=== PATIENT | male | born 1970 | race Caucasian/White ===

== ENCOUNTER 2017-03-31 18:07 | Emergency (ER) | payer MEDICAID ==
[~2017-03-31] VITALS: Ht 177.8 cm; Wt 100.0 kg
[~2017-03-31 18:07] MED LIST: DARU1TAB PO; EMTR1TAB4 PO; GABA800T PO; PRED-503 PO; VENTAER INH; ZITH250T PO
[2017-03-31 18:13] VITALS: BP 124/81; PULSE 114; RESP 17; TEMP 99.1; O2SAT 98
[2017-03-31] MEDS ORDERED: SODIUM CHLORIDE 0.9% FLUSH 10 ML FLUSH IV FLUSH PRN (18:45)
--- NOTE | 2017-03-31 18:54 | PD ---
HPI Chief Complaint: Alcohol/Drug Intoxication Time Seen by Provider: 18:49 Travel History International Travel<30 days: No Contact w/Intl Traveler<30days: No Traveled to known affect area: No History of Present Illness HPI 46-year-old male presents to the emergency department for evaluation of hematuria, intermittent right flank pain, left hand pain and bilateral feet pain. He states he symptoms started today. Patient reports history of HIV. He is not currently on antivirals and states he stopped taking these approximately 4 months ago because he could not get a ride to his physician. The patient also reports history of hepatitis C. He denies any current fevers. No chest pain or shortness of breath. Patient states that he smokes crack and injects methamphetamines. He last used these yesterday. Patient is not currently on any medications. He has no other complaints at this time. He denies any trauma to his hand or bilateral feet. Patient denies any suicidal or homicidal ideations. PFSH Past Medical History Bipolar Disorder: Yes Diminished Hearing: No Hepatitis: Yes (C) Immune Disorder: Yes (HIV ) Immunizations Current: Yes Social History Alcohol Use: No Tobacco Use: Yes (/2 PPD ) Substance Use: Yes (COCAINE, OPIATES9 (DENIES)) Allergies-Medications (Allergen,Severity, Reaction): Coded Allergies: Haldol (Verified Allergy, Severe, Swelling, 03/31/17) TONGUE SWELLING Reported Meds & Prescriptions Reported Meds & Active Scripts Active No Active Prescriptions or Reported Medications Review of Systems Except as stated in HPI: all other systems reviewed are Neg Physical Exam Narrative GENERAL: Well-nourished, well-developed male patient, afebrile. SKIN: Focused skin assessment warm/dry. HEAD: Normocephalic. Atraumatic. EYES: No scleral icterus. No injection or drainage. NECK: Supple, trachea midline. No JVD or lymphadenopathy. CARDIOVASCULAR: Regular rate and rhythm without murmurs, gallops, or rubs. RESPIRATORY: Breath sounds equal bilaterally. No accessory muscle use. Lungs sounds are clear to auscultation. GASTROINTESTINAL: Abdomen soft and nondistended. Patient has umbilical hernia noted. He has mild diffuse tenderness throughout. MUSCULOSKELETAL: No cyanosis, or edema. No abnormalities seen on bilateral feet or left hand. No evidence of trauma or cellulitis. BACK: Nontender without obvious deformity. Right CVA tenderness. Data Data Last Documented VS Vital Signs Date Time Temp Pulse Resp B/P Pulse Ox O2 Delivery O2 Flow Rate FiO2 03/31/17 21:39 100 22 127/78 95 Room Air 03/31/17 18:13 99.1 Orders Complete Blood Count With Diff (03/31/17 18:43) Comprehensive Metabolic Panel (03/31/17 18:43) Lipase (03/31/17 18:43) Urinalysis - C+S If Indicated (03/31/17 18:43) Ct Abd/Pel W/O Iv Contrast (03/31/17 18:43) Iv Access Insert/Monitor (03/31/17 18:43) Ecg Monitoring (03/31/17 18:43) Oximetry (03/31/17 18:43) Sodium Chloride 0.9% Flush (Ns Flush) (03/31/17 18:45) Electrocardiogram (03/31/17 ) Creatine Kinase (Cpk) (03/31/17 18:43) Alcohol (Ethanol) (03/31/17 18:45) Drug Screen, Random Urine (03/31/17 18:45) CKMB (03/31/17 19:20) CKMB% (03/31/17 19:20) Sodium Chlor 0.9% 1000 Ml Inj (Ns 1000 M (03/31/17 20:15) Sodium Chlor 0.9% 1000 Ml Inj (Ns 1000 M (03/31/17 22:00) Urine Culture (03/31/17 21:36) Labs Laboratory Tests Test 03/31/17 03/31/17 19:20 21:36 White Blood Count 6.9 TH/MM3 Red Blood Count 4.89 MIL/MM3 Hemoglobin 15.9 GM/DL Hematocrit 44.1 % Mean Corpuscular Volume 90.3 FL Mean Corpuscular Hemoglobin 32.5 PG Mean Corpuscular Hemoglobin 36.0 % Concent Red Cell Distribution Width 12.8 % Platelet Count 162 TH/MM3 Mean Platelet Volume 8.2 FL Neutrophils (%) (Auto) 60.6 % Lymphocytes (%) (Auto) 21.9 % Monocytes (%) (Auto) 16.0 % Eosinophils (%) (Auto) 0.4 % Basophils (%) (Auto) 1.1 % Neutrophils # (Auto) 4.2 TH/MM3 Lymphocytes # (Auto) 1.5 TH/MM3 Monocytes # (Auto) 1.1 TH/MM3 Eosinophils # (Auto) 0.0 TH/MM3 Basophils # (Auto) 0.1 TH/MM3 CBC Comment AUTO DIFF Differential Comment AUTO DIFF CONFIRMED Platelet Estimate NORMAL Platelet Morphology Comment NORMAL Red Cell Morphology Comment NORMAL Sodium Level 134 MEQ/L Potassium Level 3.9 MEQ/L Chloride Level 101 MEQ/L Carbon Dioxide Level 26.5 MEQ/L Anion Gap 7 MEQ/L Blood Urea Nitrogen 34 MG/DL Creatinine 1.41 MG/DL Estimat Glomerular Filtration 54 ML/MIN Rate Random Glucose 92 MG/DL Calcium Level 8.7 MG/DL Total Bilirubin 1.1 MG/DL Aspartate Amino Transf 63 U/L (AST/SGOT) Alanine Aminotransferase 73 U/L (ALT/SGPT) Alkaline Phosphatase 65 U/L Total Creatine Kinase 603 U/L Creatine Kinase MB 3.7 NG/ML Creatine Kinase MB % 0.6 % Total Protein 8.9 GM/DL Albumin 4.1 GM/DL Lipase 179 U/L Ethyl Alcohol Level LESS THAN 3 MG/DL Urine Color RED Urine Turbidity HAZY Urine pH 5.5 Urine Specific [place] 1.029 Urine Protein 300 mg/dL Urine Glucose (UA) NEG mg/dL Urine Ketones 10 mg/dL Urine Occult Blood MOD Urine Nitrite NEG Urine Bilirubin NEG Urine Urobilinogen 2.0 MG/DL Urine Leukocyte Esterase NEG Urine RBC /hpf Urine WBC 23 /hpf Urine Mucus FEW /lpf Microscopic Urinalysis Comment CULTURE INDICATED Urine Opiates Screen NEG Urine Barbiturates Screen NEG Urine Amphetamines Screen POS Urine Benzodiazepines Screen NEG Urine Cocaine Screen POS Urine Cannabinoids Screen POS MDM Medical Decision Making Medical Screen Exam Complete: Yes Emergency Medical Condition: Yes Medical Record Reviewed: Yes Interpretation(s) CT abdomen/pelvis - CONCLUSION: 1. Multiple calcified nonobstructing bilateral renal calculi. 2. Multiple bilateral renal cysts. 3. Splenomegaly. 4. Midline ventral abdominal wall hernia containing only fat. 5. Cholelithiasis. 6. [place] partially calcified lesion within the left pericolic fat adjacent to the distal sigmoid which may represent a diverticulum. 7. Left posterior basilar atelectasis. Differential Diagnosis Nephrolithiasis versus UTI versus substance abuse Narrative Course 46-year-old male presents to the emergency department stating he has hematuria as well as intermittent right flank pain and intermittent left hand pain as well as intermittent fever pain. He denies any pain at this moment. On exam, he has right CVA tenderness and mild diffuse tenderness throughout the abdomen. Patient also appears to be under the influence during exam. EKG, CBC, CMP, lipase, CK, UA, alcohol level, urine drug screen are ordered and pending. CT abdomen/pelvis without contrast is ordered and pending. EKG shows sinus tachycardia, HR 103, no acute ST changes. CBC shows no acute abnormality. CMP shows BUN 34, creatinine 1.41. Lipase is 179. CK is 603. UA shows moderate occult blood, innumerable RBC, 23 WBC. Alcohol level is less than 3. UDS is positive for amphetamines, cocaine, cannabinoids. CT abdomen/ pelvis shows multiple calcified nonobstructing bilateral renal calculi; multiple bilateral renal cysts; splenomegaly; midline ventral abdominal wall hernia containing only fat; cholelithiasis; oblong partially calcified lesion within the left pericolic fat adjacent to the distal sigmoid which may represent a diverticulum; left posterior basilar atelectasis. Symptoms are consistent with the fact that the patient may have possibly passed and kidney stone. The patient also was slightly dehydrated. He was given a total 2 L normal saline IV bolus. Patient also has a UTI he'll be started on ciprofloxacin. He is encouraged to follow-up with his infectious disease physician to restart antivirals. He is to follow-up with his primary care physician as well. Is return for any acute worsening of symptoms. I discussed the case with my attending physician, Dr. Watson, who agrees with plan and disposition. Diagnosis Primary Impression: UTI (urinary tract infection) Qualified Code: N30.01 - Acute cystitis with hematuria Additional Impressions: Hematuria Polysubstance abuse Referrals: Infectious Disease Specialist Primary Care Physician Patient Instructions: Cocaine Abuse (ED), General Instructions, Hematuria (ED) , Urinary Tract Infection in Men (ED) Additional Instructions: Take antibiotic as directed until gone. Follow-up with your infectious disease physician to restart antiviral therapy. Follow-up with your primary care physician. Return to the emergency department for any acute worsening of symptoms. Med/Other Pt SpecificInfo: Prescription(s) given Scripts Ciprofloxacin 500 Mg [id number] Mg PO BID 10 Days Ref 0 Prov:Inge Vargas 03/31/17 Disposition: DISCHARGE HOME Condition: Stable Inge Vargas March 31, 2017 18:54
[2017-03-31 19:36] LABS: AUTOMATED NEUTROPHIL # 4.2 TH/MM3 (1.8-7.7); BASOPHIL # 0.1 TH/MM3 (0-0.2); BASOPHIL % 1.1 % (0.0-2.0); EOSINOPHIL % 0.4 % (0.0-4.0); HEMATOCRIT 44.1 % (39.0-51.0); LYMPH % 21.9 % (9.0-44.0); LYMPHOCYTE # 1.5 TH/MM3 (1.0-4.8); MEAN CELL VOLUME 90.3 FL (80.0-100.0); MEAN CORPUSCULAR HEMOGLOBIN 32.5 PG (27.0-34.0); NEUT % 60.6 % (16.0-70.0); PLATELET COUNT 162 TH/MM3 (150-450); RED BLOOD COUNT 4.89 MIL/MM3 (4.50-5.90); RED CELL DISTRIBUTION WIDTH 12.8 % (11.6-17.2); WHITE BLOOD COUNT 6.9 TH/MM3 (4.0-11.0)
[2017-03-31 19:37] LABS: HEMO FLAGS AUTO DIFF
--- NOTE | 2017-03-31 20:04 | RADRPT ---
EXAM DATE/TIME: 03/31/2017 19:28 [facility] COMPARISON: No previous studies available for comparison. INDICATIONS : Back pain with hematuria. ORAL CONTRAST: No oral contrast ingested. RADIATION DOSE: 21.51 CTDIvol (mGy) MEDICAL HISTORY : Hepatitis C. SURGICAL HISTORY : None. ENCOUNTER: Initial ACUITY: 1 day PAIN SCALE: 8/10 LOCATION: Bilateral flank TECHNIQUE: Volumetric scanning of the abdomen and pelvis was performed. Using automated exposure control and ad justment of the mA and/or kV according to patient size, radiation dose was kept as low as reasonably achievable to obtain optimal diagnostic quality images. FINDINGS: There are calcified nonobstructing bilateral renal calculi. The largest calculus on the left measure s 8 mm and the largest calculus on the right measures 7 mm. There is no acute obstructive uropathy. There are multiple low density lesions within the kidneys bilaterally suggestive of probable cysts. Solid lesions are difficult to rule out with certainty on this unenhanced examination. Tiny calcifi ed gallstones are noted within the gallbladder which is nondistended. The spleen is enlarged. Evalu ation of the solid organs of the abdomen is limited by the lack of intravenous contrast. There is a ventral abdominal wall hernia in the midline which contains only fat. There is no bowel obstruction. There is a partially calcified oblong density within the left posterior pelvis within the pericolic fat which may represent a focal diverticulum. No acute diverticulitis is noted. The urinary bladde r is unremarkable. The prostate gland is unremarkable. Left posterior basilar atelectasis is noted. CONCLUSION: 1. Multiple calcified nonobstructing bilateral renal calculi. 2. Multiple bilateral renal cysts. 3. Splenomegaly. 4. Midline ventral abdominal wall hernia containing only fat. 5. Cholelithiasis. 6. [place] partially calcified lesion within the left pericolic fat adjacent to the distal sigmoid wh ich may represent a diverticulum. 7. Left posterior basilar atelectasis. Thogn Winters MD on March 31, 2017 at 19:50 Board Certified Radiologist. This report was verified electronically.
[2017-03-31 20:05] LABS: ALKALINE PHOSPHATASE 65 U/L (45-117); ALT (GPT) 73 U/L (12-78); ANION GAP 7 MEQ/L (5-15); AST (GOT) 63 U/L (15-37); BICARBONATE 26.5 MEQ/L (21.0-32.0); BLOOD UREA NITROGEN 34 MG/DL (7-18); CHLORIDE 101 MEQ/L (98-107); CREATINE KINASE 603 U/L (39-308); GLOMERULAR FILTRATION RATE 54 ML/MIN (>89); POTASSIUM 3.9 MEQ/L (3.5-5.1); SODIUM (NA) 134 MEQ/L (136-145); TOTAL BILIRUBIN ADULT 1.1 MG/DL (0.2-1.0)
[2017-03-31] MEDS ORDERED: SODIUM CHLOR 0.9% 1000 ML INJ 1,000 ML IV ONE ×2 (20:15→22:00)
[2017-03-31 20:17] VITALS: RESP 18; O2SAT 97
[2017-03-31 20:19] LABS: PLATELET ESTIMATE SMEAR NORMAL (NORMAL); PLATELET MORPHOLOGY NORMAL (NORMAL); SCAN/DIFF AUTO DIFF CONFIRMED
[2017-03-31 20:20] LABS: CKMB 3.7 NG/ML (0.5-3.6)
[2017-03-31 21:39] VITALS: BP 127/78; PULSE 100; RESP 22; O2SAT 95
[2017-03-31 21:57] LABS: BLOOD, URINE MOD (NEG); COMMENT (UR) CULTURE INDICATED; CULTURE IF INDICATED CULTURE INDICATED; GLUCOSE,URINE NEG (NEG); KETONE, URINE 10 mg/dL (NEG); MUCUS URINE FEW /lpf (OCC); NITRITE,URINE NEG (NEG); PH, URINE 5.5 (5.0-8.5)
[2017-03-31 21:58] LABS: URINE COLOR RED (YELLW/STRAW)
[2017-03-31 21:59] LABS: AMPHETAMINE, URINE POS (NEG); BARBITURATES, URINE NEG (NEG); COCAINE, URINE POS (NEG)
[2017-03-31] MEDS ORDERED: CIPR500T2 PO (22:34)
[2017-03-31] MEDS ORDERED: CIPROFLOXACIN 500 MG TAB PO ONE (22:45)
--- NOTE | 2017-04-01 15:16 | EKG ---
Date Performed: 03/31/2017 Time Performed: 19:13:41 PTAGE: 46 years EKG: SINUS TACHYCARDIA INDETERMINATE AXIS LEFT ANTERIOR FASCICULAR BLOCK Since previous tracing, no significant change noted ABNORMAL ECG PREVIOUS TRACING : 10/31/2016 02.40 DOCTOR: Nancy Thomas Interpretating Date/Time 04/01/2017 15:15:28
== END 2017-04-01 01:16 | disposition home or self-care (01) ==
LOC: NEPC 18:07
DX: N39.0 Urinary tract infection, site not specified (principal); R31.9 Hematuria, unspecified; R00.0 Tachycardia, unspecified; I44.4 Left anterior fascicular block; B19.20 Unspecified viral hepatitis C without hepatic coma; F17.210 Nicotine dependence, cigarettes, uncomplicated; F19.10 Other psychoactive substance abuse, uncomplicated; Z21 Asymptomatic human immunodeficiency virus [HIV] infection status
CPT/HCPCS: 74176; 80053; 80307; 81001; 82550; 82552; 83690; 85025; 87086; 93005; 96360; 96361; 99284; J7030

== ENCOUNTER 2017-07-13 07:32 | Inpatient (IN) | payer MEDICAID, OTHER ==
[~2017-07-13] VITALS: Ht 177.8 cm; Wt 109.7 kg
[~2017-07-13 07:32] MED LIST changes: +CIPR500T2 PO; -DARU1TAB PO; -EMTR1TAB4 PO; -GABA800T PO; -PRED-503 PO; -VENTAER INH; -ZITH250T PO
[2017-07-13] MEDS ORDERED: RITO100 PO (07:39)
[2017-07-13] MEDS ORDERED: [UNRECOGNIZED DRUG - CODE] PO (07:39)
[2017-07-13] MEDS ORDERED: EMTR1TAB5 PO (07:39)
[2017-07-13] MEDS ORDERED: GABA800T PO (07:39)
[2017-07-13] MEDS ORDERED: SERO300T PO (07:39)
--- NOTE | 2017-07-13 08:01 | PD ---
HPI Chief Complaint: Psychiatric Symptoms Time Seen by Provider: 07:51 Travel History International Travel<30 days: No Contact w/Intl Traveler<30days: No Traveled to known affect area: No History of Present Illness HPI This patient presents under police [place] act. He has long-standing depression but for the last 3 days she's been having suicidal thoughts. He has not acted on them but has a thought he might jump into traffic. Symptoms severity is moderate. No alleviating factors. Patient is HIV positive and on antivirals. He has hepatitis C. He has long history of IV heroin abuse but reports he has not used any in the last year and a half. No alcohol today. PFSH Past Medical History Bipolar Disorder: Yes Depression: Yes Diminished Hearing: No Gastrointestinal Disorders: Yes (UMBILICAL HERNIA) Hepatitis: Yes (C) Immune Disorder: Yes (HIV ) Medical other: Yes (CIRRHOSIS) Immunizations Current: Yes Past Surgical History Surgical History: No Previous Surgery Social History Alcohol Use: No Tobacco Use: Yes (2 PPD ) Substance Use: Yes (COCAINE, HEROIN, MARIJUANA, -HX OF OPIATE) Allergies-Medications (Allergen,Severity, Reaction): Coded Allergies: haloperidol (Unverified Allergy, Severe, Swelling, 07/03/17) TONGUE SWELLING Reported Meds & Prescriptions Reported Meds & Active Scripts Active Reported Seroquel (Quetiapine Fumarate) 300 Mg Tab 300 Mg PO HS Gabapentin 800 Mg Tab 800 Mg PO BID Norvir (Ritonavir) 100 Mg Cap 300 Mg PO BID Kaletra (Lopinavir-Ritonavir) 100-25 Mg Tab 1 Tab PO BID Truvada (Emtricitabine-Tenofovir Disoproxil Fumarate) 100-150 Mg Tab 1 Tab PO DAILY Review of Systems General / Constitutional: No: Fever Eyes: No: Visual changes HENT: No: Headaches Cardiovascular: No: Chest Pain or Discomfort Respiratory: No: Shortness of Breath Gastrointestinal: No: Abdominal Pain Genitourinary: No: Dysuria Musculoskeletal: No: Pain Skin: No Rash Neurologic: No: Weakness Psychiatric: Positive: Depression, Suicidal Ideations, Substance Abuse Endocrine: No: Polydipsia Hematologic/Lymphatic: No: Easy Bruising Physical Exam Narrative GENERAL: Well-nourished, well-developed patient in no apparent distress. SKIN: Focused skin assessment reveals no rash and nodules. Skin is Warm and dry. HEAD: Atraumatic. Normocephalic. EYES: Pupils equal and round. No scleral icterus. No injection or drainage. ENT: No nasal bleeding or discharge. Mucous membranes pink and moist. NECK: Trachea midline. No JVD. CARDIOVASCULAR: Regular rate and rhythm. No murmur appreciated. RESPIRATORY: No accessory muscle use. Clear to auscultation. Breath sounds equal bilaterally. GASTROINTESTINAL: Abdomen soft, non-tender, nondistended. Hepatic and splenic margins not palpable. He has an umbilical hernia which is chronic per his report. MUSCULOSKELETAL: No obvious deformities. No clubbing. No cyanosis. No edema. NEUROLOGICAL: Awake and alert. No obvious cranial nerve deficits. Motor grossly within normal limits. Normal speech. PSYCHIATRIC: Depressed mood and flat affect; insight and judgment reduced . Data Data Orders Orders Complete Blood Count With Diff (07/13/17 07:56) Comprehensive Metabolic Panel (07/13/17 07:56) Thyroid Stimulating Hormone (07/13/17 07:56) Psych Screen (07/13/17 07:56) Drug Screen, Random Urine (07/13/17 07:56) Alcohol (Ethanol) (07/13/17 07:56) Diet Regular Basic (07/13/17 Breakfast) Labs Laboratory Tests Test 07/13/17 07:45 White Blood Count 13.1 TH/MM3 Red Blood Count 5.05 MIL/MM3 Hemoglobin 16.5 GM/DL Hematocrit 48.0 % Mean Corpuscular Volume 95.0 FL Mean Corpuscular Hemoglobin 32.6 PG Mean Corpuscular Hemoglobin Concent 34.4 % Red Cell Distribution Width 13.7 % Platelet Count 187 TH/MM3 Mean Platelet Volume 7.8 FL Neutrophils (%) (Auto) 71.0 % Lymphocytes (%) (Auto) 19.9 % Monocytes (%) (Auto) 7.6 % Eosinophils (%) (Auto) 0.7 % Basophils (%) (Auto) 0.8 % Neutrophils # (Auto) 9.3 TH/MM3 Lymphocytes # (Auto) 2.6 TH/MM3 Monocytes # (Auto) 1.0 TH/MM3 Eosinophils # (Auto) 0.1 TH/MM3 Basophils # (Auto) 0.1 TH/MM3 CBC Comment DIFF FINAL Differential Comment Blood Urea Nitrogen 17 MG/DL Creatinine 1.12 MG/DL Random Glucose 92 MG/DL Total Protein 9.4 GM/DL Albumin 4.4 GM/DL Calcium Level 9.0 MG/DL Alkaline Phosphatase 64 U/L Aspartate Amino Transf (AST/SGOT) 33 U/L Alanine Aminotransferase (ALT/SGPT) 49 U/L Total Bilirubin 0.9 MG/DL Sodium Level 137 MEQ/L Potassium Level 3.7 MEQ/L Chloride Level 104 MEQ/L Carbon Dioxide Level 19.7 MEQ/L Anion Gap 13 MEQ/L Estimat Glomerular Filtration Rate 70 ML/MIN Thyroid Stimulating Hormone 3rd Gen 1.680 uIU/ML Ethyl Alcohol Level 10 MG/DL MDM Medical Decision Making Medical Screen Exam Complete: Yes Emergency Medical Condition: Yes Medical Record Reviewed: Yes Differential Diagnosis Depression, suicidal ideation, adjustment disorder Narrative Course I have reviewed the patient's electronic medical record. Patient's been here for a few minor medical problems in the last couple of years but has no psychiatric visits I've ordered a medical screening workup CBC is normal Metabolic profile is normal LFTs are normal TSH are normal Alcohol is 25 Drug screen is pending but not going to international exchange coordinator I've ordered psychiatric evaluation as he is here in the [place] act. Patient is is medically stable as can be made. He will be dispositioned determined by how his psychiatric evaluation dose Diagnosis Primary Impression: Depression with suicidal ideation Additional Impressions: Intravenous drug abuse, episodic HIV disease Ajith Lowery MD Jul 13, 2017 08:01
[2017-07-13 08:31] LABS: AUTOMATED NEUTROPHIL # 9.3 TH/MM3 (1.8-7.7); BASOPHIL # 0.1 TH/MM3 (0-0.2); BASOPHIL % 0.8 % (0.0-2.0); EOSINOPHIL # 0.1 TH/MM3 (0-0.4); EOSINOPHIL % 0.7 % (0.0-4.0); HEMO FLAGS DIFF FINAL; LYMPH % 19.9 % (9.0-44.0); LYMPHOCYTE # 2.6 TH/MM3 (1.0-4.8); MEAN CORPUSCULAR HEMOGLOBIN 32.6 PG (27.0-34.0); MEAN CORPUSCULAR HGB CONC 34.4 % (32.0-36.0); MONO % 7.6 % (0.0-8.0); PLATELET COUNT 187 TH/MM3 (150-450); RED BLOOD COUNT 5.05 MIL/MM3 (4.50-5.90); RED CELL DISTRIBUTION WIDTH 13.7 % (11.6-17.2); WHITE BLOOD COUNT 13.1 TH/MM3 (4.0-11.0)
[2017-07-13 08:47] LABS: ALT (GPT) 49 U/L (12-78); ANION GAP 13 MEQ/L (5-15); AST (GOT) 33 U/L (15-37); BICARBONATE 19.7 MEQ/L (21.0-32.0); BLOOD UREA NITROGEN 17 MG/DL (7-18); CHLORIDE 104 MEQ/L (98-107); GLOMERULAR FILTRATION RATE 70 ML/MIN (>89); POTASSIUM 3.7 MEQ/L (3.5-5.1); SODIUM (NA) 137 MEQ/L (136-145)
[2017-07-13 08:57] LABS: ALKALINE PHOSPHATASE 64 U/L (45-117); TOTAL BILIRUBIN ADULT 0.9 MG/DL (0.2-1.0)
[2017-07-13 09:08] LABS: ALCOHOL 10 MG/DL (0-5)
[2017-07-13] MEDS ORDERED: LORazepam 1 MG TAB PO PRN (18:15)
[2017-07-13] MEDS ORDERED: LORazepam 0.5 MG TAB PO PRN (18:15)
[2017-07-13] MEDS ORDERED: LORazepam 2 MG/ML VIAL IM PRN ×2 (18:15)
[2017-07-13] MEDS ORDERED: ALUMINUM/MAGNESIUM/SIMETH 30 ML CUP PO PRN ×2 (18:15→18:45)
[2017-07-13] MEDS ORDERED: MAGNESIUM HYDROXIDE SUSP 30 ML CUP PO PRN (18:15)
[2017-07-13] MEDS ORDERED: ACETAMINOPHEN 325 MG TAB PO PRN (18:15)
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
[2017-07-13] MEDS ORDERED: ONDANSETRON HCL 4 MG/2 ML VIAL IM ONE (20:00)
[2017-07-13 20:21] VITALS: BP 159/83; PULSE 64; RESP 18
[2017-07-13 20:45] VITALS: BP 155/95; PULSE 70; RESP 20; TEMP 98.9; O2SAT 97
[2017-07-13] MEDS: RITONAVIR 100 MG TAB PO SCH (21:00)
[2017-07-13] MEDS: LOPINAVIR/RITONAVIR 200 MG/50 MG TAB PO SCH (21:00)
[2017-07-13] MEDS: QUEtiapine FUMARATE 300 MG TAB PO SCH (22:07)
[2017-07-13] MEDS: GABAPENTIN 400 MG CAP PO SCH (22:07)
[2017-07-14 06:00] VITALS: BP 121/60; PULSE 90; RESP 16; TEMP 97.1; O2SAT 97
[2017-07-14] MEDS: FLUoxetine HCL 20 MG CAP PO SCH (08:32)
[2017-07-14] MEDS: GABAPENTIN 400 MG CAP PO SCH ×2 (08:32→21:12)
[2017-07-14 08:36] LABS: BASOPHIL % 0.5 % (0.0-2.0); EOSINOPHIL # 0.1 TH/MM3 (0-0.4); EOSINOPHIL % 0.5 % (0.0-4.0); HEMATOCRIT 46.9 % (39.0-51.0); HEMO FLAGS DIFF FINAL; LYMPH % 17.3 % (9.0-44.0); LYMPHOCYTE # 1.7 TH/MM3 (1.0-4.8); MEAN CELL VOLUME 94.8 FL (80.0-100.0); MEAN CORPUSCULAR HGB CONC 34.8 % (32.0-36.0); MONO % 9.4 % (0.0-8.0); NEUT % 72.3 % (16.0-70.0); PLATELET COUNT 163 TH/MM3 (150-450); RED BLOOD COUNT 4.95 MIL/MM3 (4.50-5.90); RED CELL DISTRIBUTION WIDTH 13.7 % (11.6-17.2); WHITE BLOOD COUNT 9.6 TH/MM3 (4.0-11.0)
[2017-07-14 09:00] LABS: ALT (GPT) 46 U/L (12-78); ANION GAP 10 MEQ/L (5-15); AST (GOT) 29 U/L (15-37); BLOOD UREA NITROGEN 25 MG/DL (7-18); CHLORIDE 96 MEQ/L (98-107); GLOMERULAR FILTRATION RATE 55 ML/MIN (>89); POTASSIUM 3.7 MEQ/L (3.5-5.1); SODIUM (NA) 130 MEQ/L (136-145)
[2017-07-14] MEDS: EMTRICITABINE/TENOFOVIR 200 MG/300 MG TAB PO SCH (09:00)
[2017-07-14 09:26] LABS: ALKALINE PHOSPHATASE 64 U/L (45-117); HDL CHOLESTEROL 47.5 MG/DL (40.0-60.0); LDL CHOLESTEROL 186 MG/DL (0-99); TOTAL BILIRUBIN ADULT 0.9 MG/DL (0.2-1.0)
[2017-07-14 13:15] LABS: HEMOGLOBIN A1b 0.8 %; HEMOGLOBIN Ao 85.3 %; HEMOGLOBIN F 2.1 %; HEMOGLOBIN LA1C 2.1 %; HEMOGLOBIN P3 4.8 %
--- NOTE | 2017-07-14 13:58 | PD.CONS ---
HPI Service [facility] Consult Requested By Psychiatric team Reason for Consult Evaluation and treatment for hepatitis, cirrhosis, HIV Primary Care Physician Unknown Diagnoses: History of Present Illness Written by Darcy Kathleen, acting as scribe for on 07/14/17 at 13:45. Patient is a 47-year-old male with primary medical history of hep C, HIV who came into the hospital for suicidal ideation. Patient states that he was depressed probably because he was doing drugs saying that he wants to end his life by "stepping off the streets and hopefully to be hit by a car." Patient states that he has HIV and has been compliant with his medications. He takes them every day. He also admitted to doing cocaine, last use was 3 days ago. He used to do IV drugs but has stopped for a few years now. States he got HIV and hep C from it. Patient also reports that he was diagnosed with kidney stones at [facility] 3 weeks ago and feels that the stone has passed yesterday. Reports bilateral lower abdominal quadrant pain and hematuria prior to the stone passing but has not seen any hematuria since today. He currently denies any abdominal pain. Patient is also sleepy and drowsy, reporting that he took sleep medications. Otherwise,denies pain and discomfort. Denies SOB/ dyspnea. Denies chest pain, palpitations, headaches, dizziness. Denies fevers, chills, n/v/d. Denies hematuria, dysuria. Review of Systems Except as stated in HPI: all other systems reviewed are Neg Past Family Social History Allergies: Coded Allergies: haloperidol (Unverified Allergy, Severe, Swelling, 07/03/17) TONGUE SWELLING Past Medical History HIV Hep C History Kidney stones Past Surgical History None Reported Medications Pulled from EMR as instructed by Brijesh Reported Meds & Active Scripts Active Reported Seroquel (Quetiapine Fumarate) 300 Mg Tab 300 Mg PO HS Gabapentin 800 Mg Tab 800 Mg PO BID Norvir (Ritonavir) 100 Mg Cap 300 Mg PO BID Kaletra (Lopinavir-Ritonavir) 100-25 Mg Tab 1 Tab PO BID Truvada (Emtricitabine-Tenofovir Disoproxil Fumarate) 100-150 Mg Tab 1 Tab PO DAILY Active Ordered Medications Pulled from EMR as instructed by Brijesh Current Medications Medications (Trade) Dose Ordered Sig/Michelle Route Start Time Stop Time Status Last Admin (Ativan) 1 mg Q6H PRN PO 07/13/17 18:15 07/13/17 22:07 (Ativan Inj) 1 mg Q6H PRN IM 07/13/17 18:15 (Ativan) 0.5 mg Q12H PRN PO 07/13/17 18:15 (Ativan Inj) 0.5 mg Q12H PRN IM 07/13/17 18:15 (Tylenol) 650 mg Q4H PRN PO 07/13/17 18:15 (Milk Of Magnesia Liq) 30 ml DAILY PRN PO 07/13/17 18:15 (Mag-Al Plus Susp Liq) 30 ml Q6H PRN PO 07/13/17 18:15 07/13/17 19:13 (Desyrel) 50 mg HS PRN PO 07/13/17 18:15 (Neurontin) 800 mg BID PO 07/13/17 21:00 07/14/17 08:32 (Kaletra 200-50 Mg) 1 tab BID PO 07/13/17 21:00 (SEROquel) 300 mg HS PO 07/13/17 21:00 07/13/17 22:07 (Norvir) 300 mg BID PO 07/13/17 21:00 (Truvada 200-300 Mg) 1 tab DAILY PO 07/14/17 09:00 07/14/17 09:00 (PROzac) 20 mg DAILY PO 07/14/17 09:00 07/14/17 08:32 Family History Denies any significant family medical history Social History Denies alcohol use Current a smoker 2 packs per day Illicit drug use cocaine Physical Exam Vital Signs Vital Signs Date Time Temp Pulse Resp B/P (MAP) Pulse Ox O2 Delivery O2 Flow Rate FiO2 07/14/17 06:00 97.1 90 16 121/60 (80) 97 07/13/17 20:45 98.9 70 20 155/95 (115) 97 07/13/17 20:21 64 18 159/83 (108) Physical Exam GENERAL: This is a well-nourished, well-developed patient, in no apparent distress. SKIN: No rashes, ecchymoses or lesions. Cool and dry. HEAD: Normocephalic. EYES: Pupils equal round and reactive. Extraocular motions intact. No scleral icterus. No injection or drainage. ENT: Nose without bleeding. Throat without erythema. Uvula midline. Airway patent. NECK: Trachea midline. Supple. CARDIOVASCULAR: Regular rate and rhythm without murmurs, gallops, or rubs. RESPIRATORY: Mild expiratory wheezes. GASTROINTESTINAL: Abdomen soft, non-tender, protuberant. No guarding. Umbilical hernia present. Bowel sounds active 4. MUSCULOSKELETAL: Extremities without clubbing, cyanosis, or edema. NEUROLOGICAL: Awake and alert. Oriented to place, person, time Motor and sensory grossly within normal limits. Five out of 5 muscle strength in all muscle groups. Normal speech. PSYCH: Mood and affect appropriate. Laboratory Laboratory Tests Test 07/13/17 16:00 07/14/17 07:46 Urine Opiates Screen NEG Urine Barbiturates Screen NEG Urine Amphetamines Screen NEG Urine Benzodiazepines Screen NEG Urine Cocaine Screen POS Urine Cannabinoids Screen POS White Blood Count 9.6 Red Blood Count 4.95 Hemoglobin 16.3 Hematocrit 46.9 Mean Corpuscular Volume 94.8 Mean Corpuscular Hemoglobin 33.0 Mean Corpuscular Hemoglobin Concent 34.8 Red Cell Distribution Width 13.7 Platelet Count 163 Mean Platelet Volume 8.1 Neutrophils (%) (Auto) 72.3 Lymphocytes (%) (Auto) 17.3 Monocytes (%) (Auto) 9.4 Eosinophils (%) (Auto) 0.5 Basophils (%) (Auto) 0.5 Neutrophils # (Auto) 7.0 Lymphocytes # (Auto) 1.7 Monocytes # (Auto) 0.9 Eosinophils # (Auto) 0.1 Basophils # (Auto) 0.0 CBC Comment DIFF FINAL Differential Comment Blood Urea Nitrogen 25 Creatinine 1.38 Random Glucose 104 Total Protein 8.4 Albumin 3.9 Calcium Level 9.3 Alkaline Phosphatase 64 Aspartate Amino Transf (AST/SGOT) 29 Alanine Aminotransferase (ALT/SGPT) 46 Total Bilirubin 0.9 Sodium Level 130 Potassium Level 3.7 Chloride Level 96 Carbon Dioxide Level 24.0 Anion Gap 10 Estimat Glomerular Filtration Rate 55 Triglycerides Level 114 Cholesterol Level 256 LDL Cholesterol 186 HDL Cholesterol 47.5 Cholesterol/HDL Ratio 5.38 Vitamin B12 Level 469 25-Hydroxy Vitamin D Total 18.9 Result Diagram: 07/14/17 0746 07/14/17 0746 Assessment and Plan Problem List: (1) Hep C w/o coma, chronic ICD Code: B18.2 - Chronic viral hepatitis C (2) Adjustment disorder with depressed mood ICD Code: F43.21 - Adjustment disorder with depressed mood Status: Acute (3) Depression with suicidal ideation ICD Code: F32.9 - Major depressive disorder, single episode, unspecified; R45.851 - Suicidal ideations Status: Acute (4) HIV disease ICD Code: B20 - Human immunodeficiency virus [HIV] disease; R45.851 - Suicidal ideations Status: Acute Assessment and Plan Patient is a 47-year-old male with primary medical history of hep C, HIV who came into the hospital for suicidal ideation. Depression, suicidal ideation - Managed by psychiatry team HIV - Continue HAART meds from home (Truvada, Kaletra) - follow-up with own outpatient infectious disease - Patient is compliant with medications Hep C/ Cirrhosis - LFTs within normal range - Follow-up either infectious disease or gastroenterology/hepatology for treatment Acute kidney injury Kidney stone - This is possibly related to reports of kidney stone that had passed yesterday with dehydration - Repeat BMP tomorrow, repeat UA - Avoid nephrotoxins - Encourage by mouth fluid intake. Patient reports he is thirsty, and agreeable to drink Hyponatremia - Possibly related to dehydration. Pt appears euvolemic. - Repeat BMP in am Tobacco abuse - Possibly with underlying COPD - DuoNeb's when necessary - Nicotine patch - Counseled DVT prop low risk ambulatory If repeat labs tomorrow is within normal we'll sign off on the patient. Code Status Full code Discussed Condition With Patient, nursing This note was transcribed by leann Kathleen. I, Dr. Philippe Yepez personally performed the history, physical exam, and medical decision making; and confirmed the accuracy of the information in the transcribed note. Authenticated by Dr. Philippe Yepez on 07/14/17 at 15:11. Darcy Velázquez Jul 14, 2017 13:58 Philippe Yepez DO Jul 14, 2017 15:12
--- NOTE | 2017-07-14 14:59 | HHI.PYPN ---
Subjective Remarks Pt seen and discussed with staff. He remains depressed and with intermittent suicidal thoughts, but reports some improvement in mood. He is malodorous and has remained wihtdrawnand isolated to his room. Tolerating medications without side effects. NO SI/HI Objective Alert: Yes [place]: Person, Place, Date Mood: Depressed Affect: Flat Memory Intact: Immediate, Recent, Remote Hallucinations: Other (none) Delusions: No Delusion Type: Other (none) Suicidal: Plan (overdose), Ideation (intermittent) Homicidal: Ideation (denies) Insight/Judgment poor Labs Test 07/13/17 16:00 07/14/17 07:46 Urine Opiates Screen NEG Urine Barbiturates Screen NEG Urine Amphetamines Screen NEG Urine Benzodiazepines Screen NEG Urine Cocaine Screen POS Urine Cannabinoids Screen POS White Blood Count 9.6 TH/MM3 Red Blood Count 4.95 MIL/MM3 Hemoglobin 16.3 GM/DL Hematocrit 46.9 % Mean Corpuscular Volume 94.8 FL Mean Corpuscular Hemoglobin 33.0 PG Mean Corpuscular Hemoglobin Concent 34.8 % Red Cell Distribution Width 13.7 % Platelet Count 163 TH/MM3 Mean Platelet Volume 8.1 FL Neutrophils (%) (Auto) 72.3 % Lymphocytes (%) (Auto) 17.3 % Monocytes (%) (Auto) 9.4 % Eosinophils (%) (Auto) 0.5 % Basophils (%) (Auto) 0.5 % Neutrophils # (Auto) 7.0 TH/MM3 Lymphocytes # (Auto) 1.7 TH/MM3 Monocytes # (Auto) 0.9 TH/MM3 Eosinophils # (Auto) 0.1 TH/MM3 Basophils # (Auto) 0.0 TH/MM3 CBC Comment DIFF FINAL Differential Comment Blood Urea Nitrogen 25 MG/DL Creatinine 1.38 MG/DL Random Glucose 104 MG/DL Total Protein 8.4 GM/DL Albumin 3.9 GM/DL Calcium Level 9.3 MG/DL Alkaline Phosphatase 64 U/L Aspartate Amino Transf (AST/SGOT) 29 U/L Alanine Aminotransferase (ALT/SGPT) 46 U/L Total Bilirubin 0.9 MG/DL Sodium Level 130 MEQ/L Potassium Level 3.7 MEQ/L Chloride Level 96 MEQ/L Carbon Dioxide Level 24.0 MEQ/L Anion Gap 10 MEQ/L Estimat Glomerular Filtration Rate 55 ML/MIN Hemoglobin A1c 4.7 % Triglycerides Level 114 MG/DL Cholesterol Level 256 MG/DL LDL Cholesterol 186 MG/DL HDL Cholesterol 47.5 MG/DL Cholesterol/HDL Ratio 5.38 RATIO Vitamin B12 Level 469 PG/ML 25-Hydroxy Vitamin D Total 18.9 ng/ML Vitals/IOs Vital Signs Date Time Temp Pulse Resp B/P (MAP) Pulse Ox O2 Delivery O2 Flow Rate FiO2 07/14/17 06:00 97.1 90 16 121/60 (80) 97 Assessment & Plan Problem List: (1) Adjustment disorder with depressed mood ICD Codes: F43.21 - Adjustment disorder with depressed mood Status: Acute Assessment & Plan Continue current tx plan. Estimated LOS: days Justification for Cont. Inpt. impairments in safety Lily Morgan MD Jul 14, 2017 14:59
--- NOTE | 2017-07-14 15:29 | EKG ---
Date Performed: 07/14/2017 Time Performed: 08:00:51 PTAGE: 47 years EKG: Sinus rhythm INDETERMINATE AXIS ATYPICAL ECG PREVIOUS TRACING : 03/31/2017 19.13 Compared to prior tracing no significant change DOCTOR: Timi Jose Interpretating Date/Time 07/14/2017 15:29:06
[2017-07-14 17:39] VITALS: BP 109/56; PULSE 92; RESP 18; TEMP 97.4; O2SAT 98
[2017-07-14] MEDS: QUEtiapine FUMARATE 300 MG TAB PO SCH (21:12)
[2017-07-14] MEDS: traZODone HCL 50 MG TAB PO PRN (21:13)
[2017-07-15 06:23] VITALS: BP 109/53; PULSE 73; RESP 18; TEMP 98; O2SAT 97
[2017-07-15] MEDS: FLUoxetine HCL 20 MG CAP PO SCH (08:35)
[2017-07-15] MEDS: RITONAVIR 100 MG TAB PO SCH ×2 (08:36→08:38)
[2017-07-15] MEDS: GABAPENTIN 400 MG CAP PO SCH ×2 (08:38→20:45)
[2017-07-15] MEDS: LOPINAVIR/RITONAVIR 200 MG/50 MG TAB PO SCH ×3 (08:38→20:45)
[2017-07-15] MEDS: EMTRICITABINE/TENOFOVIR 200 MG/300 MG TAB PO SCH (08:38)
--- NOTE | 2017-07-15 15:38 | HHI.PYPN ---
Subjective Remarks Pt seen and discussed with staff. He remains seclusive with poor interactions. He is compliant with medications. He remains depressed and continues to endorse SI. No HI. Hygiene is poor and he is resistant to performing ADLs Objective Alert: Yes [place]: Person, Place, Date Mood: Depressed Affect: Restricted Memory Intact: Immediate, Recent, Remote Hallucinations: Other (none) Delusions: No Delusion Type: Other (none) Suicidal: Plan (overdose), Ideation (intermittent) Homicidal: Ideation (denies) Insight/Judgment poor Remarks malodorous Vitals/IOs Vital Signs Date Time Temp Pulse Resp B/P (MAP) Pulse Ox O2 Delivery O2 Flow Rate FiO2 07/15/17 06:23 98.0 73 18 109/53 (71) 97 Assessment & Plan Problem List: (1) Adjustment disorder with depressed mood ICD Codes: F43.21 - Adjustment disorder with depressed mood Status: Acute Assessment & Plan Continue leslie hernandez plan. Estimated LOS: days Justification for Cont. Inpt. impairments in safety Lily Morgan MD Jul 15, 2017 15:38
[2017-07-15 16:11] VITALS: BP 98/56; PULSE 77; RESP 18; TEMP 98.4; O2SAT 97
[2017-07-15] MEDS: QUEtiapine FUMARATE 300 MG TAB PO SCH (20:45)
[2017-07-15] MEDS: traZODone HCL 50 MG TAB PO PRN (20:45)
[2017-07-16 06:10] VITALS: BP 120/72; PULSE 84; RESP 18; TEMP 97.6; O2SAT 97
[2017-07-16] MEDS: EMTRICITABINE/TENOFOVIR 200 MG/300 MG TAB PO SCH (08:35)
[2017-07-16] MEDS: LOPINAVIR/RITONAVIR 200 MG/50 MG TAB PO SCH ×2 (08:35→20:12)
[2017-07-16] MEDS: FLUoxetine HCL 20 MG CAP PO SCH (08:35)
[2017-07-16] MEDS: GABAPENTIN 400 MG CAP PO SCH ×2 (08:36→20:12)
[2017-07-16] MEDS: RITONAVIR 100 MG TAB PO SCH ×2 (08:36→20:12)
[2017-07-16 11:01] LABS: AUTOMATED NEUTROPHIL # 3.2 TH/MM3 (1.8-7.7); BASOPHIL % 0.8 % (0.0-2.0); EOSINOPHIL # 0.2 TH/MM3 (0-0.4); EOSINOPHIL % 3.2 % (0.0-4.0); HEMATOCRIT 45.3 % (39.0-51.0); HEMO FLAGS DIFF FINAL; LYMPH % 30.7 % (9.0-44.0); LYMPHOCYTE # 1.8 TH/MM3 (1.0-4.8); MEAN CORPUSCULAR HEMOGLOBIN 32.8 PG (27.0-34.0); MEAN CORPUSCULAR HGB CONC 34.5 % (32.0-36.0); NEUT % 56.3 % (16.0-70.0); PLATELET COUNT 170 TH/MM3 (150-450); RED BLOOD COUNT 4.77 MIL/MM3 (4.50-5.90); RED CELL DISTRIBUTION WIDTH 14.1 % (11.6-17.2); WHITE BLOOD COUNT 5.8 TH/MM3 (4.0-11.0)
[2017-07-16 11:36] LABS: BICARBONATE 25.8 MEQ/L (21.0-32.0); POTASSIUM 3.4 MEQ/L (3.5-5.1)
[2017-07-16] MEDS ORDERED: POTASSIUM CHLORIDE 25 MEQ EFFERVESCENT TAB PO ONE ×2 (12:45→13:15)
[2017-07-16] MEDS ORDERED: ALUMINUM/MAGNESIUM/SIMETH 30 ML CUP PO PRN (13:15)
[2017-07-16] MEDS ORDERED: ACETAMINOPHEN 325 MG TAB PO PRN (13:15)
[2017-07-16] MEDS ORDERED: MAGNESIUM HYDROXIDE SUSP 30 ML CUP PO PRN (13:15)
--- NOTE | 2017-07-16 13:21 | HHI.PYPN ---
Subjective Remarks Patient seen on unit with nurse Nancy, chart reviewed, patient compliant medications. Intrapsychic room with Dr. Greenfield reviewed and agreed with. This time though I feel patient is a capacity to sign voluntary. Will lift Leon act allow patient to sign voluntary. He continues to voice suicidal ideation there also appears to be a component of depression anxiety related to his chronic medical conditions and his living situation. We'll discontinue all Ativan orders. Continue other medication. He is suffering from AIDS at this time we will help explore various living situations related to that also Review of Systems Except as stated in HPI: all other systems reviewed are Neg Objective Alert: Yes [place]: Person, Place, Date Mood: Depressed Affect: Restricted Memory Intact: Immediate, Recent, Remote Hallucinations: Other (none) Delusions: No Delusion Type: Other (none) Suicidal: Plan (overdose), Ideation (intermittent) Homicidal: Ideation (denies) Insight/Judgment Poor Labs Test 07/16/17 10:00 White Blood Count 5.8 TH/MM3 Red Blood Count 4.77 MIL/MM3 Hemoglobin 15.6 GM/DL Hematocrit 45.3 % Mean Corpuscular Volume 95.0 FL Mean Corpuscular Hemoglobin 32.8 PG Mean Corpuscular Hemoglobin Concent 34.5 % Red Cell Distribution Width 14.1 % Platelet Count 170 TH/MM3 Mean Platelet Volume 7.9 FL Neutrophils (%) (Auto) 56.3 % Lymphocytes (%) (Auto) 30.7 % Monocytes (%) (Auto) 9.0 % Eosinophils (%) (Auto) 3.2 % Basophils (%) (Auto) 0.8 % Neutrophils # (Auto) 3.2 TH/MM3 Lymphocytes # (Auto) 1.8 TH/MM3 Monocytes # (Auto) 0.5 TH/MM3 Eosinophils # (Auto) 0.2 TH/MM3 Basophils # (Auto) 0.0 TH/MM3 CBC Comment DIFF FINAL Differential Comment Blood Urea Nitrogen 26 MG/DL Creatinine 1.29 MG/DL Random Glucose 115 MG/DL Calcium Level 9.1 MG/DL Sodium Level 141 MEQ/L Potassium Level 3.4 MEQ/L Chloride Level 107 MEQ/L Carbon Dioxide Level 25.8 MEQ/L Anion Gap 8 MEQ/L Estimat Glomerular Filtration Rate 59 ML/MIN Vitals/IOs Vital Signs Date Time Temp Pulse Resp B/P (MAP) Pulse Ox O2 Delivery O2 Flow Rate FiO2 07/16/17 06:10 97.6 84 18 120/72 (88 97 Assessment & Plan Problem List: (1) Adjustment disorder with depressed mood ICD Codes: F43.21 - Adjustment disorder with depressed mood Status: Acute Assessment & Plan Estimated LOS: days patient continues somewhat depressed and suicidal, able contracted to no harm while here. We'll continue medication no change except discontinue all benzodiazepines. Need to work with counselor to explore various placement options Justification for Cont. Inpt. At this time patient will decompensate the placed in a lower level of care Discharge Planning To be determined Request HC Surrog/Guard Advoc?: No Zheng Aguilar MD Jul 16, 2017 13:21
--- NOTE | 2017-07-16 14:22 | HHI.PR ---
Subjective Remarks Written by Hayde Washington, acting as scribe for Dr. Yepez on 07/16/17 at 1315. Follow up Hepatitis C, HIV and suicidal ideation. Patient seen and examined today. Denies any acute events overnight. States he has been taking his medications. Tolerating PO intake but has had poor appetite lately. Denies any recent fever, chills, cough, shortness of breath, abdominal pain, hematuria, nausea, vomiting or diarrhea. Positive BM. Reports sleeping well. Objective Vitals Vital Signs Date Time Temp Pulse Resp B/P (MAP) Pulse Ox O2 Delivery O2 Flow Rate FiO2 07/16/17 06:10 97.6 84 18 120/72 (88) 97 07/15/17 16:11 98.4 77 18 98/56 (70) 97 Result Diagram: 07/16/17 1000 07/16/17 1000 Objective Remarks GENERAL: This is a well-nourished, well-developed patient, in no apparent distress. SKIN: No rashes, ecchymoses or lesions. Warm and dry. HEAD: Normocephalic. EYES: Pupils equal round and reactive. Extraocular motions intact. No scleral icterus. No injection or drainage. ENT: Nose without bleeding. Throat without erythema. Uvula midline. Airway patent. NECK: Trachea midline. Supple. CARDIOVASCULAR: Regular rate and rhythm without murmurs, gallops, or rubs. RESPIRATORY: Mild expiratory wheezes. GASTROINTESTINAL: Abdomen soft, non-tender, protuberant. No guarding. Umbilical hernia present. Bowel sounds active 4. MUSCULOSKELETAL: Extremities without clubbing, cyanosis, or edema. NEUROLOGICAL: Awake and alert. Oriented to place, person, time Motor and sensory grossly within normal limits. Five out of 5 muscle strength in all muscle groups. Normal speech. PSYCH: Mood and affect appropriate. Medications and IVs Current Medications Medications (Trade) Dose Ordered Sig/Michelle Route Start Time Stop Time Status Last Admin (Tylenol) 650 mg Q4H PRN PO 07/13/17 18:15 (Milk Of Magnesia Liq) 30 ml DAILY PRN PO 07/13/17 18:15 (Mag-Al Plus Susp Liq) 30 ml Q6H PRN PO 07/13/17 18:15 07/13/17 19:13 (Desyrel) 50 mg HS PRN PO 07/13/17 18:15 07/15/17 20:45 (Neurontin) 800 mg BID PO 07/13/17 21:00 07/16/17 08:36 (Kaletra 200-50 Mg) 1 tab BID PO 07/13/17 21:00 07/16/17 08:35 (SEROquel) 300 mg HS PO 07/13/17 21:00 07/15/17 20:45 (Norvir) 300 mg BID PO 07/13/17 21:00 07/16/17 08:36 (Truvada 200-300 Mg) 1 tab DAILY PO 07/14/17 09:00 07/16/17 08:35 (PROzac) 20 mg DAILY PO 07/14/17 09:00 07/16/17 08:35 (Atarax) 50 mg Q6H PRN PO 07/16/17 15:00 A/P Problem List: (1) Hep C w/o coma, chronic ICD Code: B18.2 - Chronic viral hepatitis C (2) Adjustment disorder with depressed mood ICD Code: F43.21 - Adjustment disorder with depressed mood Status: Acute (3) Depression with suicidal ideation ICD Code: F32.9 - Major depressive disorder, single episode, unspecified; R45.851 - Suicidal ideations Status: Acute (4) HIV disease ICD Code: B20 - Human immunodeficiency virus [HIV] disease; R45.851 - Suicidal ideations Status: Acute Assessment and Plan Patient is a 47-year-old male with primary medical history of hep C, HIV who came into the hospital for suicidal ideation. Depression, suicidal ideation - Managed by psychiatry team HIV - Continue HAART meds from home (Truvada, Kaletra) - follow-up with own outpatient infectious disease - Patient is compliant with medications Hep C/Cirrhosis - LFTs within normal range - Follow-up either infectious disease or gastroenterology/hepatology for treatment Hypokalemia - K 3.4 today. Replace with KCL 50 meq x 1. Will also check a magnesium level. Follow. Acute kidney injury, improved Kidney stone - Possibly related to reports of kidney stone that had passed four days ago with dehydration. - Creatinine 1.29 today. - Avoid nephrotoxins - Encourage by mouth fluid intake. Hyponatremia, resolved. - Possibly related to dehydration. Pt appears euvolemic. - Na 141 today. Tobacco abuse - Possibly with underlying COPD - DuoNeb's when necessary - Nicotine patch - Counseled DVT prop low risk ambulatory Attending Statement This note was transcribed by leann Washington. I, Dr. Philippe Yepez personally performed the history, physical exam, and medical decision making; and confirmed the accuracy of the information in the transcribed note. Authenticated by Dr. Philippe Yepez on 07/16/17 at 15:17. Hayde Washington Jul 16, 2017 14:22 Philippe Yepez DO Jul 16, 2017 15:17
[2017-07-16] MEDS ORDERED: hydrOXYzine HCL 50 MG TAB PO PRN (15:00)
[2017-07-16 16:41] LABS: BLOOD, URINE MOD (NEG); COMMENT (UR) CULT NOT INDICATED; CULTURE IF INDICATED CULT NOT INDICATED; GLUCOSE,URINE NEG (NEG); HYALINE CAST, URINE 9 /lpf (RARE); KETONE, URINE NEG (NEG); MUCUS URINE MANY /lpf (OCC); NITRITE,URINE NEG (NEG); PH, URINE 5.5 (5.0-8.5); SQUAMOUS EPITHELIAL CELL URINE <1 /hpf (0-5); URINE COLOR YELLOW (YELLW/STRAW)
[2017-07-16 16:42] VITALS: BP 136/84; PULSE 71; RESP 18; TEMP 97.7; O2SAT 95
[2017-07-16] MEDS: QUEtiapine FUMARATE 300 MG TAB PO SCH (20:12)
[2017-07-17 05:46] VITALS: BP 107/55; PULSE 53; RESP 18; TEMP 97.9; O2SAT 98
[2017-07-17 06:04] VITALS: BP 107/55; PULSE 93; RESP 18; TEMP 97.9; O2SAT 98
[2017-07-17] MEDS: RITONAVIR 100 MG TAB PO SCH (08:34)
[2017-07-17] MEDS: FLUoxetine HCL 20 MG CAP PO SCH (08:35)
[2017-07-17] MEDS: GABAPENTIN 400 MG CAP PO SCH (08:35)
[2017-07-17] MEDS: EMTRICITABINE/TENOFOVIR 200 MG/300 MG TAB PO SCH (08:35)
[2017-07-17] MEDS: LOPINAVIR/RITONAVIR 200 MG/50 MG TAB PO SCH (08:35)
[2017-07-17] MEDS ORDERED: EMTR1TAB PO (13:08)
[2017-07-17] MEDS ORDERED: QUET1TAB10 PO (13:08)
[2017-07-17] MEDS ORDERED: TRAZ50TA12 PO (13:08)
[2017-07-17] MEDS ORDERED: KALETRA200 PO (13:08)
[2017-07-17] MEDS ORDERED: FLUO20CA12 PO (13:08)
[2017-07-17] MEDS ORDERED: NORV100T PO (13:09)
[2017-07-17] MEDS ORDERED: NEUR400C PO (13:09)
--- NOTE | 2017-07-17 13:15 | HHI.DS ---
Psychiatry Discharge Summary Inpatient Psychiatric care?: Yes Advance Directive: No Reason Not Provided: declined Mental Health AdvanceDirective: No Health Care Proxy: No Admission Admission Date Jul 13, 2017 at 18:03 Admission Diagnosis: (1) Adjustment disorder with depressed mood ICD Code: F43.21 - Adjustment disorder with depressed mood Brief History This is a 47-year-old male who presents to the emergency department with suicidal ideation and a plan of jumping in front of a vehicle, to commit suicide. Apparently the patient was walking along [facility] when he decided to call 911. The patient describes repeated intrusive and obsessive thoughts about suicide over the last several weeks. He has a history of a diagnosis of bipolar disorder and has been off his lithium, Seroquel and Prozac for 5 months. He actually describes a 20 year history of mood disorder along with multiple medical problems including HIV positive, hepatitis C, cirrhosis etc. additionally, the patient and his girlfriend broke up several months ago and the patient relocated to [place]. He was being treated in the [facility] but has not been treated here in [place]. He admits to using cocaine and heroine once a month to use for self-medicating purposes. He also used cocaine and marijuana recently to self medicate. His depressive symptoms include depressed mood, suicidality, sleep disturbance, appetite disturbance, anxiety, and feelings of hopelessness and helplessness. Tobacco Use In Past 30 Days: 5 or More Cigarettes/Day Alcohol Use: Never Hospital Course Patient course was uneventful, show compliance with medication from day 1. He also showed initiative and contacting [facility] [facility] to explore placement at that facility. Patient is seen today on the unit with with floor staff. He is alert oriented calm cooperative pleasant denying suicidality homicidality voices or visions. He states he does have lodging available at [facility] [address] [facility] today. He wishes to be discharged the facility to continue his quest for sobriety. Is able contracted to no harm. Thus patient will be discharged today with Rx 1 month including his HIV medications follow-up medical treatment with his PCP, follow-up mental health services through [facility] act Results Blood Pressure 107 / 55 Vital Signs Date Time Temp Pulse Resp B/P (MAP) Pulse Ox O2 Delivery O2 Flow Rate FiO2 07/17/17 06:04 97.9 93 18 107/55 (72) 98 Laboratory Tests Test 07/16/17 10:00 07/16/17 15:00 07/16/17 20:35 Monocytes (%) (Auto) 9.0 % (0.0-8.0) Blood Urea Nitrogen 26 MG/DL (7-18) Random Glucose 115 MG/DL (74-106) Potassium Level 3.4 MEQ/L (3.5-5.1) Estimat Glomerular Filtration Rate 59 ML/MIN (>89) Urine Occult Blood MOD (NEG) Urine RBC 20 /hpf (0-3) Urine WBC 6 /hpf (0-5) Urine Mucus MANY /lpf (OCC) Laboratory Results Test 07/14/17 07:46 Cholesterol Level 256 MG/DL (120-200) HDL Cholesterol 47.5 MG/DL (40.0-60.0) Hemoglobin A1c 4.7 % (4.3-6.0) LDL Cholesterol 186 MG/DL (0-99) Triglycerides Level 114 MG/DL (42-150) Summary of Procedures None done Pending results at discharge: No Medications # of Antipsychotic meds at D/C: 1 Approp Antipsych med options 1 - Minimum of three failed multiple trials of monotherapy. 2 - Documented plan to taper to monotherapy due to previous use of multiple meds OR cross-taper in progress at D/C. 3 - Documentation of augmentation of Clozapine. 4 - Justification other than those listed in allowable values 1-3, document here : Discharge Discharge Date: Jul 17, 2017 Discharge Diagnosis: (1) Adjustment disorder with depressed mood Diagnosis: Principal ICD Code: F43.21 - Adjustment disorder with depressed mood Status: Acute Mental Status Exam at Disch Alert oriented white male calm cooperative with me. He has normoactive. He is euthymic with good range intensity of his affect. Speech rate and rhythm are slightly increased. There are no formal thought disorders. No auditory or visual hallucinations. No delusions. Cognition grossly intact Pt Condition on Discharge: Stable Discharge Disposition: Discharge Home Discharge Instructions Diet Instructions: As Tolerated, No Restrictions Activities you can perform: Regular-No Restrictions Scheduled Appointment: Thi[facility] Manning Discharge Time > 30 minutes Discharge/Advance Care Plan Health Problems: (1) Adjustment disorder with depressed mood Goals to promote your health * To prevent worsening of your condition and complications * To maintain your health at the optimal level Directions to meet your goals Take your medications as prescribed Follow your dietary instruction Follow activity as directed Keep your appointments as scheduled Take your immunizations and boosters as scheduled If your symptoms worsen call your PCP, if no PCP go to Urgent Care Center or Emergency Room For 11/06 questions related to your inpatient stay or results of tests pending at discharge, please contact Dr. Zheng Aguilar at Smoking is Dangerous to Your Health. Avoid second hand smoking Zheng Aguilar MD Jul 17, 2017 13:15
[2017-07-19 03:51] LABS: CD4/CD8 RATIO 0.2 (0.86-5.00)
== END 2017-07-17 17:30 | disposition home or self-care (01) | DRG 881 ==
LOC: NEPC 07:32 → NEDA 18:03 → H260 20:52
PROVIDERS: ADMIT Psychiatry & Neurology Psychiatry; ATTEND Psychiatry & Neurology Psychiatry
DX: F43.21 Adjustment disorder with depressed mood (principal); N17.9 Acute kidney failure, unspecified; R45.851 Suicidal ideations; E87.1 Hypo-osmolality and hyponatremia; K74.60 Unspecified cirrhosis of liver; B18.2 Chronic viral hepatitis C; Z21 Asymptomatic human immunodeficiency virus [HIV] infection status; F31.9 Bipolar disorder, unspecified; F14.90 Cocaine use, unspecified, uncomplicated; F17.210 Nicotine dependence, cigarettes, uncomplicated; Z62.810 Personal history of physical and sexual abuse in childhood; E87.6 Hypokalemia; Z87.442 Personal history of urinary calculi; K42.9 Umbilical hernia without obstruction or gangrene; J44.9 Chronic obstructive pulmonary disease, unspecified
CPT/HCPCS: 80048; 80053; 80061; 80307; 81001; 82306; 82607; 83036; 83735; 84443; 85025; 86355; 86357; 86359; 86360; 93005; J2405

== ENCOUNTER 2017-07-30 09:12 | Emergency (ER) | payer MEDICAID, OTHER ==
[~2017-07-30] VITALS: Ht 177.8 cm; Wt 105.0 kg
[~2017-07-30 09:12] MED LIST changes: -CIPR500T2 PO; +EMTR1TAB PO; +FLUO20CA12 PO; +KALETRA200 PO; +NEUR400C PO; +NORV100T PO; +QUET1TAB10 PO; +TRAZ50TA12 PO
[2017-07-30 09:13] VITALS: BP 119/81; PULSE 89; RESP 17; TEMP 97.9; O2SAT 95
[2017-07-30] MEDS ORDERED: methylPREDNISolone SOD SUCC 125 MG/2 ML VIAL IV PUSH ONE (09:30)
--- NOTE | 2017-07-30 09:44 | PD ---
HPI Chief Complaint: Respiratory Symptoms Time Seen by Provider: 09:22 Travel History International Travel<30 days: No Contact w/Intl Traveler<30days: No Traveled to known affect area: No History of Present Illness HPI This is a 47-year-old male who has a history of AIDS with CD4 count is 75 who presents to the emergency department with increasing cough, shortness of breath , and rhinorrhea that been present over the past 6 days, worsening. He says it feels similar to when he had pneumonia in the past. He says he's had PCP before anything to be hospitalized several times. He denies any fevers or chills. He does normally smoke cigarettes every day but since she's been sick he hasn't been smoking. He has a history of drug use but he hasn't used drugs since he was just discharged from a mental health hospitalization a little over a week ago. His symptoms are constant, moderate severity. PFSH Past Medical History Bipolar Disorder: Yes Depression: Yes Diminished Hearing: No Gastrointestinal Disorders: Yes (UMBILICAL HERNIA) Hepatitis: Yes (C) Immune Disorder: Yes (HIV ) Kidney Stones: Yes Psychiatric: Yes Immunizations Current: Yes Social History Alcohol Use: No Tobacco Use: Yes (2 PPD ) Substance Use: Yes (COCAINE, HEROIN, MARIJUANA, -HX OF OPIATE) Allergies-Medications (Allergen,Severity, Reaction): Coded Allergies: haloperidol (Unverified Allergy, Severe, Swelling, 07/03/17) TONGUE SWELLING Reported Meds & Prescriptions Reported Meds & Active Scripts Active Norvir (Ritonavir) 100 Mg Tab 300 Mg PO 3 PO BID Neurontin (Gabapentin) 400 Mg Cap 800 Mg PO 2 PO BID Trazodone (Trazodone HCl) 50 Mg Tab 50 Mg PO HS PRN Quetiapine (Quetiapine Fumarate) 300 Mg Tab 300 Mg PO HS Kaletra (Lopinavir/Ritonavir) 200-50 Mg Tab 1 Tab PO BID Fluoxetine (Fluoxetine HCl) 20 Mg Capsule 20 Mg PO DAILY Truvada (Emtricitabine-Tenofovir Disoproxil Fumarate) 200-300 Mg Tab 1 Tab PO DAILY Review of Systems Except as stated in HPI: all other systems reviewed are Neg Physical Exam Narrative GENERAL:Well appearing, no acute distress SKIN: Focused skin assessment warm and dry. HEAD: Atraumatic. Normocephalic. EYES: Pupils equal and round. No injection or drainage. ENT: Moist mucous membranes NECK: Trachea midline. CARDIOVASCULAR: Regular rate and rhythm. No murmur appreciated. RESPIRATORY: Wheezing, tachypnea, no accessory muscle use, speaking full sentences GASTROINTESTINAL: Abdomen soft, non-tender, nondistended. MUSCULOSKELETAL: No obvious deformities. NEUROLOGICAL: Awake and alert. No obvious cranial nerve deficits. Moving all extremities. PSYCHIATRIC: Appropriate mood and affect; insight and judgment normal. Data Data Last Documented VS Vital Signs Date Time Temp Pulse Resp B/P (MAP) Pulse Ox O2 Delivery O2 Flow Rate FiO2 07/30/17 09:50 94 21 07/30/17 09:13 97.9 89 17 119/81 (94) Orders Orders Methylprednisolone So Succ Inj (Solumedr (07/30/17 09:30) Complete Blood Count With Diff (07/30/17 09:28) Comprehensive Metabolic Panel (07/30/17 09:28) ^ Insert Iv (07/30/17 09:28) Chest, Pa & Lat (07/30/17 ) Albuterol-Ipratropium Neb (Duoneb Neb) (07/30/17 09:30) Labs Laboratory Tests Test 07/30/17 09:56 White Blood Count 2.9 TH/MM3 Red Blood Count 4.41 MIL/MM3 Hemoglobin 14.7 GM/DL Hematocrit 41.8 % Mean Corpuscular Volume 94.9 FL Mean Corpuscular Hemoglobin 33.4 PG Mean Corpuscular Hemoglobin Concent 35.2 % Red Cell Distribution Width 13.4 % Platelet Count 126 TH/MM3 Mean Platelet Volume 8.0 FL Neutrophils (%) (Auto) 52.8 % Lymphocytes (%) (Auto) 24.2 % Monocytes (%) (Auto) 19.8 % Eosinophils (%) (Auto) 2.1 % Basophils (%) (Auto) 1.1 % Neutrophils # (Auto) 1.5 TH/MM3 Lymphocytes # (Auto) 0.7 TH/MM3 Monocytes # (Auto) 0.6 TH/MM3 Eosinophils # (Auto) 0.1 TH/MM3 Basophils # (Auto) 0.0 TH/MM3 CBC Comment DIFF FINAL Differential Comment Blood Urea Nitrogen 15 MG/DL Creatinine 0.95 MG/DL Random Glucose 85 MG/DL Total Protein 7.9 GM/DL Albumin 3.5 GM/DL Calcium Level 8.5 MG/DL Alkaline Phosphatase 55 U/L Aspartate Amino Transf (AST/SGOT) 35 U/L Alanine Aminotransferase (ALT/SGPT) 50 U/L Total Bilirubin 0.4 MG/DL Sodium Level 137 MEQ/L Potassium Level 3.8 MEQ/L Chloride Level 108 MEQ/L Carbon Dioxide Level 22.0 MEQ/L Anion Gap 7 MEQ/L Estimat Glomerular Filtration Rate 85 ML/MIN MDM Medical Decision Making Medical Screen Exam Complete: Yes Emergency Medical Condition: Yes Interpretation(s) afebrile, no tachycardia, normotensive mild leukopenia monocytic predominance electrolytes within normal limits Last 24 hours Impressions Chest X-Ray 07/30/17 0000 Signed Impressions: Service Date/Time: Sunday, July 30, 2017 09:39 - CONCLUSION: No acute disease. Harjeet Cazares MD Differential Diagnosis bronchitis, pneumonia, copd exacerbation Narrative Course This is a 47-year-old male who has a history of AIDS with a CD4 count of 75 who presents to the emergency department with cough concerned that he may have pneumonia. He is not hypoxic. He is diffusely wheezing on exam. Labs are reassuring. Chest x-ray demonstrates no pneumonia. He was given IV steroids and serial bronchodilator treatments. I think patient can be treated as an outpatient for bronchitis. Diagnosis Primary Impression: Bronchitis Patient Instructions: General Instructions Additional Instructions: If you develop severe shortness of breath, chest pain, or difficulty breathing return to the emergency department. Use albuterol every 4 hours for the next 2 days. Then use as needed for wheezing. Complete your course of steroids. Complete your course of antibiotics. Follow up with your primary care physician in 2-3 days if your symptoms have not improved. Med/Other Pt SpecificInfo: Prescription(s) given Scripts Azithromycin (Azithromycin) 250 Mg Tab 250 MG PO DIRECTED for Infection, #6 TAB 0 Refills Take 2 tabs (500 mg) on day 1 then 1 tab daily x 4 days. Prov: Brandy Chavez MD 07/30/17 Prednisone (Prednisone) 20 Mg Tab 40 MG PO DAILY for 4 Days, TAB 0 Refills Prov: Brandy Chavez MD 07/30/17 Disposition: 01 DISCHARGE HOME Condition: Stable Brandy Chavez MD Jul 30, 2017 09:44
[2017-07-30 09:50] VITALS: O2SAT 94
[2017-07-30] MEDS: RESP: ALBUTEROL 2.5 MG/IPRATROPIUM 0.5 MG NEB (SCH) INH ×2 (09:51→09:52)
--- NOTE | 2017-07-30 10:02 | RADRPT ---
EXAM DATE/TIME: 07/30/2017 09:39 [facility] COMPARISON: No previous studies available for comparison. INDICATIONS : Chest and back pain. Dyspnea. MEDICAL HISTORY : Hepatitis C. SURGICAL HISTORY : None. ENCOUNTER: Initial ACUITY: 1 week PAIN SCORE: 4/10 LOCATION: Bilateral chest FINDINGS: PA and lateral views of the chest demonstrate the lungs to be symmetrically aerated without evidence of mass, infiltrate or effusion. The cardiomediastinal contours are unremarkable. Osseous structure s are intact. CONCLUSION: No acute disease. Harjeet Cazares MD on July 30, 2017 at 9:54 Board Certified Radiologist. This report was verified electronically.
[2017-07-30 10:14] LABS: AUTOMATED NEUTROPHIL # 1.5 TH/MM3 (1.8-7.7); BASOPHIL % 1.1 % (0.0-2.0); EOSINOPHIL # 0.1 TH/MM3 (0-0.4); EOSINOPHIL % 2.1 % (0.0-4.0); HEMATOCRIT 41.8 % (39.0-51.0); HEMO FLAGS DIFF FINAL; LYMPH % 24.2 % (9.0-44.0); LYMPHOCYTE # 0.7 TH/MM3 (1.0-4.8); MEAN CELL VOLUME 94.9 FL (80.0-100.0); MEAN CORPUSCULAR HEMOGLOBIN 33.4 PG (27.0-34.0); MEAN CORPUSCULAR HGB CONC 35.2 % (32.0-36.0); MONO % 19.8 % (0.0-8.0); NEUT % 52.8 % (16.0-70.0); PLATELET COUNT 126 TH/MM3 (150-450); RED BLOOD COUNT 4.41 MIL/MM3 (4.50-5.90); RED CELL DISTRIBUTION WIDTH 13.4 % (11.6-17.2); WHITE BLOOD COUNT 2.9 TH/MM3 (4.0-11.0)
[2017-07-30 10:29] LABS: ALKALINE PHOSPHATASE 55 U/L (45-117); TOTAL BILIRUBIN ADULT 0.4 MG/DL (0.2-1.0)
[2017-07-30 10:31] LABS: ALT (GPT) 50 U/L (12-78); ANION GAP 7 MEQ/L (5-15); AST (GOT) 35 U/L (15-37); BLOOD UREA NITROGEN 15 MG/DL (7-18); CHLORIDE 108 MEQ/L (98-107); GLOMERULAR FILTRATION RATE 85 ML/MIN (>89); POTASSIUM 3.8 MEQ/L (3.5-5.1); SODIUM (NA) 137 MEQ/L (136-145)
[2017-07-30] MEDS ORDERED: AZIT250T3 PO (10:44)
[2017-07-30] MEDS ORDERED: PRED20 PO (10:44)
[2017-07-30] MEDS ORDERED: predniSONE 50 MG TAB PO ONE (11:00)
[2017-07-30] MEDS ORDERED: ALBUTEROL SULFATE 90 MCG/ACT HFA 8 GM INHALER INH ONE (11:00)
== END 2017-07-30 11:32 | disposition home or self-care (01) ==
LOC: NEPC 09:12
DX: J40 Bronchitis, not specified as acute or chronic (principal); B20 Human immunodeficiency virus [HIV] disease; Z72.0 Tobacco use
CPT/HCPCS: 71020; 80053; 85025; 94640; 94664; 99284; J7512

== ENCOUNTER 2017-08-17 20:33 | Emergency (ER) | payer MEDICAID, OTHER ==
[~2017-08-17] VITALS: Ht 177.8 cm; Wt 104.5 kg
[~2017-08-17 20:33] MED LIST changes: +AZIT250T3 PO; +PRED20 PO
[2017-08-17 21:14] VITALS: BP 127/82; PULSE 108; RESP 16; TEMP 98.1
[2017-08-17 22:23] LABS: AUTOMATED NEUTROPHIL # 8.9 TH/MM3 (1.8-7.7); BASOPHIL # 0.1 TH/MM3 (0-0.2); BASOPHIL % 0.6 % (0.0-2.0); EOSINOPHIL # 0.2 TH/MM3 (0-0.4); EOSINOPHIL % 1.2 % (0.0-4.0); HEMATOCRIT 46.3 % (39.0-51.0); HEMO FLAGS DIFF FINAL; LYMPH % 26.1 % (9.0-44.0); LYMPHOCYTE # 3.7 TH/MM3 (1.0-4.8); MEAN CELL VOLUME 93.9 FL (80.0-100.0); MEAN CORPUSCULAR HEMOGLOBIN 32.7 PG (27.0-34.0); MEAN CORPUSCULAR HGB CONC 34.9 % (32.0-36.0); NEUT % 63.1 % (16.0-70.0); PLATELET COUNT 186 TH/MM3 (150-450); RED BLOOD COUNT 4.93 MIL/MM3 (4.50-5.90); RED CELL DISTRIBUTION WIDTH 13.4 % (11.6-17.2); WHITE BLOOD COUNT 14.1 TH/MM3 (4.0-11.0)
[2017-08-17 22:43] LABS: ANION GAP 9 MEQ/L (5-15); AST (GOT) 62 U/L (15-37); BLOOD UREA NITROGEN 19 MG/DL (7-18); CHLORIDE 104 MEQ/L (98-107); POTASSIUM 3.9 MEQ/L (3.5-5.1); SODIUM (NA) 136 MEQ/L (136-145)
[2017-08-17 22:52] LABS: ALKALINE PHOSPHATASE 72 U/L (45-117); ALT (GPT) 90 U/L (12-78); GLOMERULAR FILTRATION RATE 81 ML/MIN (>89); TOTAL BILIRUBIN ADULT 1.6 MG/DL (0.2-1.0)
--- NOTE | 2017-08-18 01:58 | PD ---
HPI Chief Complaint: Psychiatric Symptoms Time Seen by Provider: 01:41 Travel History International Travel<30 days: No Contact w/Intl Traveler<30days: No Traveled to known affect area: No History of Present Illness HPI 47-year-old white male presents to emergency department under [place] act by PD. The patient had performed suicide gesture cutting to both forearms and wrists. This is a patient who had moved to the area from [place] approximately 8 months ago. He has a history of HIV, bipolar and schizophrenia. He has been noncompliant with his medications. He has a history of substance abuse. He drinks alcohol, smokes crack cocaine and heroin. The patient admits to drinking in doing drugs earlier. He is currently homeless. He states that he had lost his place to stay. He's been feeling increasingly depressed. Patient states that he has not been taking his medications. He has not followed up as he was instructed. Patient denies any fever or chills. No chest pain or shortness breath. No nausea vomiting. No urinary symptoms. Patient admits to feeling depressed and suicidal. No homicidal ideation. Up-to-date with immunizations. PFSH Past Medical History Bipolar Disorder: Yes Depression: Yes Diminished Hearing: No Gastrointestinal Disorders: Yes (UMBILICAL HERNIA) Hepatitis: Yes (C) Immune Disorder: Yes (HIV ) Kidney Stones: Yes Psychiatric: Yes Immunizations Current: Yes Social History Alcohol Use: No Tobacco Use: Yes (1/2 PPD ) Substance Use: Yes (hx COCAINE-) Allergies-Medications (Allergen,Severity, Reaction): Coded Allergies: haloperidol (Verified Allergy, Severe, Swelling, 08/17/17) TONGUE SWELLING Reported Meds & Prescriptions Reported Meds & Active Scripts Active Azithromycin 250 Mg Tab 250 Mg PO DIRECTED Take 2 tabs (500 mg) on day 1 then 1 tab daily x 4 days. Prednisone 20 Mg Tab 40 Mg PO DAILY 4 Days Norvir (Ritonavir) 100 Mg Tab 300 Mg PO 3 PO BID Neurontin (Gabapentin) 400 Mg Cap 800 Mg PO 2 PO BID Trazodone (Trazodone HCl) 50 Mg Tab 50 Mg PO HS PRN Quetiapine (Quetiapine Fumarate) 300 Mg Tab 300 Mg PO HS Kaletra (Lopinavir/Ritonavir) 200-50 Mg Tab 1 Tab PO BID Fluoxetine (Fluoxetine HCl) 20 Mg Capsule 20 Mg PO DAILY Truvada (Emtricitabine-Tenofovir Disoproxil Fumarate) 200-300 Mg Tab 1 Tab PO DAILY Review of Systems Except as stated in HPI: all other systems reviewed are Neg Physical Exam Narrative GENERAL: Well-nourished, well-developed patient. SKIN: Warm and dry. Patient has superficial suicide gesture cutting to the dorsal and volar surfaces of the right and left forearms to the wrist. HEAD: Normocephalic and atraumatic. EYES: No scleral icterus. No injection or drainage. ENT: No nasal drainage noted. Mucous membranes pink. Airway patent. NECK: Supple, trachea midline. Moves head freely without obvious discomfort. CARDIOVASCULAR: Regular rate and rhythm without murmurs, gallops, or rubs. RESPIRATORY: Breath sounds equal bilaterally. No accessory muscle use. GASTROINTESTINAL: Abdomen soft, non-tender, nondistended. EXTREMITIES: No cyanosis or edema. BACK: Nontender without obvious deformity. No CVA tenderness. NEURO: Patient is alert and oriented. no sensorimotor deficits. Nonfocal. Normal speech. PSYCH: No delusions. No auditory or visual hallucinations. Data Data Last Documented VS Vital Signs Date Time Temp Pulse Resp B/P (MAP) Pulse Ox O2 Delivery O2 Flow Rate FiO2 08/17/17 21:14 98.1 108 16 127/82 (97) Orders Orders Complete Blood Count With Diff (08/17/17 21:13) Comprehensive Metabolic Panel (08/17/17 21:13) Psych Screen (08/17/17 21:13) Drug Screen, Random Urine (08/17/17 21:13) Labs Laboratory Tests Test 08/17/17 21:45 White Blood Count 14.1 TH/MM3 Red Blood Count 4.93 MIL/MM3 Hemoglobin 16.2 GM/DL Hematocrit 46.3 % Mean Corpuscular Volume 93.9 FL Mean Corpuscular Hemoglobin 32.7 PG Mean Corpuscular Hemoglobin Concent 34.9 % Red Cell Distribution Width 13.4 % Platelet Count 186 TH/MM3 Mean Platelet Volume 7.9 FL Neutrophils (%) (Auto) 63.1 % Lymphocytes (%) (Auto) 26.1 % Monocytes (%) (Auto) 9.0 % Eosinophils (%) (Auto) 1.2 % Basophils (%) (Auto) 0.6 % Neutrophils # (Auto) 8.9 TH/MM3 Lymphocytes # (Auto) 3.7 TH/MM3 Monocytes # (Auto) 1.3 TH/MM3 Eosinophils # (Auto) 0.2 TH/MM3 Basophils # (Auto) 0.1 TH/MM3 CBC Comment DIFF FINAL Differential Comment Blood Urea Nitrogen 19 MG/DL Creatinine 0.99 MG/DL Random Glucose 77 MG/DL Total Protein 9.0 GM/DL Albumin 4.3 GM/DL Calcium Level 9.2 MG/DL Alkaline Phosphatase 72 U/L Aspartate Amino Transf (AST/SGOT) 62 U/L Alanine Aminotransferase (ALT/SGPT) 90 U/L Total Bilirubin 1.6 MG/DL Sodium Level 136 MEQ/L Potassium Level 3.9 MEQ/L Chloride Level 104 MEQ/L Carbon Dioxide Level 23.0 MEQ/L Anion Gap 9 MEQ/L Estimat Glomerular Filtration Rate 81 ML/MIN MDM Medical Decision Making Medical Screen Exam Complete: Yes Emergency Medical Condition: Yes Medical Record Reviewed: Yes Interpretation(s) CBC & BMP Diagram 08/17/17 21:45 Total Protein 9.0 H, Albumin 4.3, Calcium Level 9.2, Alkaline Phosphatase 72, Aspartate Amino Transf (AST/SGOT) 62 H, Alanine Aminotransferase (ALT/SGPT) 90 H , Total Bilirubin 1.6 H Differential Diagnosis MDM: High Differential diagnoses: Schizophrenia, schizoaffective disorder, bipolar, anxiety, depression, adjustment reaction, mood disorder NOS, ODD, depressive disorder NOS, dementia, dementia with agitation, psychosis NOS, substance induced mood disorder, infection,electrolyte abnormality, malingering. Narrative Course The patient has been medically cleared. This is bipolar-depressed, polysubstance abuse, HIV, medical clearance for psychiatric admission Diagnosis Primary Impression: Medical clearance for psychiatric admission Additional Impressions: Bipolar 1 disorder, depressed Polysubstance abuse HIV (human immunodeficiency virus infection) Condition: Stable Isael Cheney Aug 18, 2017 01:57
[2017-08-18 05:58] VITALS: BP 95/52; PULSE 66; RESP 18; O2SAT 92
[2017-08-18 18:04] VITALS: BP 112/75; PULSE 76; RESP 16; TEMP 98.3; O2SAT 94
[2017-08-19 02:14] VITALS: BP 113/68; PULSE 73; RESP 17; TEMP 98.5; O2SAT 97
[2017-08-19 06:49] VITALS: BP 116/65; PULSE 82; RESP 16; TEMP 97.6; O2SAT 97
[2017-08-19 11:39] VITALS: BP 112/67; PULSE 83; RESP 18
[2017-08-19 11:40] VITALS: BP 146/101; PULSE 89; RESP 24
[2017-08-19 14:30] VITALS: BP 128/72; PULSE 84; RESP 20
== END 2017-08-19 16:55 ==
LOC: NEDAMB 20:33 → NEPJ 08-19 16:55
DX: F31.9 Bipolar disorder, unspecified (principal); F19.10 Other psychoactive substance abuse, uncomplicated; B19.20 Unspecified viral hepatitis C without hepatic coma; F17.200 Nicotine dependence, unspecified, uncomplicated; Z21 Asymptomatic human immunodeficiency virus [HIV] infection status; Z79.899 Other long term (current) drug therapy; Z59.0 Homelessness; Z88.8 Allergy status to other drugs, medicaments and biological substances
CPT/HCPCS: 80053; 80307; 85025; 99284

== ENCOUNTER 2017-10-16 15:25 | Emergency (ER) | payer MEDICAID, OTHER ==
[~2017-10-16] VITALS: Ht 177.8 cm; Wt 116.5 kg
[2017-10-16 15:26] VITALS: BP 153/90; PULSE 89; RESP 17; TEMP 98.1; O2SAT 95
[2017-10-16] MEDS ORDERED: IOHEXOL 350 MG/ML 10 ML VIAL (for RAD DIAG) IVCONTRAST ONE (15:26)
[2017-10-16 16:22] LABS: AUTOMATED NEUTROPHIL # 2.2 TH/MM3 (1.8-7.7); BASOPHIL % 0.7 % (0.0-2.0); EOSINOPHIL # 0.2 TH/MM3 (0-0.4); HEMATOCRIT 42.6 % (39.0-51.0); HEMO FLAGS DIFF FINAL; LYMPH % 40.1 % (9.0-44.0); LYMPHOCYTE # 1.9 TH/MM3 (1.0-4.8); MEAN CELL VOLUME 92.1 FL (80.0-100.0); MEAN CORPUSCULAR HEMOGLOBIN 32.6 PG (27.0-34.0); MEAN CORPUSCULAR HGB CONC 35.3 % (32.0-36.0); MONO % 9.1 % (0.0-8.0); NEUT % 45.1 % (16.0-70.0); PLATELET COUNT 156 TH/MM3 (150-450); RED BLOOD COUNT 4.63 MIL/MM3 (4.50-5.90); RED CELL DISTRIBUTION WIDTH 13.5 % (11.6-17.2); WHITE BLOOD COUNT 4.9 TH/MM3 (4.0-11.0)
[2017-10-16 16:26] VITALS: BP 147/84; PULSE 80; RESP 19; TEMP 98; O2SAT 96
[2017-10-16 16:26] LABS: APTT (PATIENT) 27.1 SEC (24.3-30.1); INTERNATIONAL NORMALIZED RATIO 0.9 RATIO; PROTHROMBIN TIME - PATIENT 10.3 SEC (9.8-11.6)
--- NOTE | 2017-10-16 16:26 | RADRPT ---
EXAM DATE/TIME: 10/16/2017 16:04 [facility] COMPARISON: CHEST PA & LAT, July 30, 2017, 9:39. INDICATIONS : Cough and chest pain for 4 days. MEDICAL HISTORY : Hepatitis C. SURGICAL HISTORY : None. ENCOUNTER: Initial ACUITY: 4 - 6 days PAIN SCORE: 9/10 LOCATION: Left upper chest FINDINGS: PA and lateral views of the chest demonstrate the lungs to be symmetrically aerated without evidence of mass, infiltrate or effusion. The cardiomediastinal contours are unremarkable. Osseous structure s are intact. CONCLUSION: 1. No acute cardiopulmonary disease. Alexi Metz MD on October 16, 2017 at 16:24 Board Certified Radiologist. This report was verified electronically.
[2017-10-16 16:30] LABS: BLOOD, URINE NEG (NEG); GLUCOSE,URINE NEG (NEG); KETONE, URINE NEG (NEG); MUCUS URINE MOD /lpf (OCC); NITRITE,URINE NEG (NEG); URINE COLOR YELLOW (YELLW/STRAW)
[2017-10-16 16:35] LABS: ANION GAP 7 MEQ/L (5-15); AST (GOT) 43 U/L (15-37); BICARBONATE 24.7 MEQ/L (21.0-32.0); BLOOD UREA NITROGEN 18 MG/DL (7-18); CHLORIDE 106 MEQ/L (98-107); GLOMERULAR FILTRATION RATE 74 ML/MIN (>89); MAGNESIUM 1.7 MG/DL (1.5-2.5); POTASSIUM 3.4 MEQ/L (3.5-5.1); SODIUM (NA) 138 MEQ/L (136-145)
[2017-10-16 16:35] LABS: COMMENT (UR) CATH-CULT NOT IND; CULTURE IF INDICATED CATH CULTURE NOT IND
[2017-10-16 16:36] LABS: ALT (GPT) 57 U/L (12-78)
[2017-10-16 16:38] LABS: ALKALINE PHOSPHATASE 52 U/L (45-117); TOTAL BILIRUBIN ADULT 0.5 MG/DL (0.2-1.0)
[2017-10-16] MEDS ORDERED: MORPHINE SULFATE 4 MG/ML INJ IV PUSH ONE (17:00)
[2017-10-16] MEDS ORDERED: ONDANSETRON HCL 4 MG/2 ML VIAL IV PUSH ONE (17:00)
--- NOTE | 2017-10-16 17:00 | PD ---
HPI Chief Complaint: Abdominal Pain Time Seen by Provider: 16:40 Travel History International Travel<30 days: No Contact w/Intl Traveler<30days: No Traveled to known affect area: No History of Present Illness HPI 47 YO M with PMH of HIV, schizoaffective presents to the ED for evaluation of 3 day history of bilateral flank pain. Rated 8/10, described as constant. Worsened by coughing or sneezing. Patient can identify no acute injury. He denies fevers, chills, chest pain, palpitations. He endorses chronic nonproductive cough secondary to cigarette smoking. He endorses mild nausea with 1 episode of nonbloody vomiting today. Denies changes in bowel habits including melena, hematochezia. Denies dysuria, hematuria, penile discharge, back pain. He has a history of IVDA, in remission for 3 years. He is not currently taking any HIV medications. States that his CD4 count is "around 36. " He doesn't have a PCP or psychiatrist. Currently taking Geodon prescribed at last ED admission. PFSH Past Medical History Bipolar Disorder: Yes Depression: Yes Cirrhosis: Yes Diminished Hearing: No Gastrointestinal Disorders: Yes (UMBILICAL HERNIA) Hepatitis: Yes (C) Immune Disorder: Yes (HIV ) Kidney Stones: Yes Psychiatric: Yes Immunizations Current: Yes Past Surgical History Surgical History: No Previous Surgery Social History Alcohol Use: No Tobacco Use: Yes (1/2 PPD ) Substance Use: Yes (hx COCAINE-) Allergies-Medications (Allergen,Severity, Reaction): Coded Allergies: haloperidol (Verified Allergy, Severe, Swelling, 10/16/17) TONGUE SWELLING - Per pt. Reported Meds & Prescriptions Reported Meds & Active Scripts Active Review of Systems Except as stated in HPI: all other systems reviewed are Neg Physical Exam Narrative GENERAL: Well-nourished, well-developed white male in no acute distress. SKIN: Focused skin assessment warm/dry. HEAD: Normocephalic. EYES: No scleral icterus. No injection or drainage. NECK: Supple, trachea midline. No JVD or lymphadenopathy. CARDIOVASCULAR: Regular rate and rhythm without murmurs, gallops, or rubs. CHEST: Nontender throughout without deformity or crepitus. Tender to palpation in the bilateral flank/costophrenic angle areas. RESPIRATORY: Breath sounds clear and equal bilaterally. No accessory muscle use. GASTROINTESTINAL: Abdomen soft, non-tender, nondistended. Easily reducible umbilical hernia. Active bowel sounds. MUSCULOSKELETAL: No cyanosis, or edema. BACK: Nontender without obvious deformity. No CVA tenderness. Data Data Last Documented VS Vital Signs Date Time Temp Pulse Resp B/P (MAP) Pulse Ox O2 Delivery O2 Flow Rate FiO2 10/16/17 16:26 98.0 80 19 147/84 (105) 96 Room Air Orders Orders Complete Blood Count With Diff (10/16/17 15:35) Comprehensive Metabolic Panel (10/16/17 15:35) Prothrombin Time / Inr (Pt) (10/16/17 15:35) Act Partial Throm Time (Ptt) (10/16/17 15:35) Lactic Acid Sepsis Protocol (10/16/17 15:35) Magnesium (Mg) (10/16/17 15:35) Lipase (10/16/17 15:35) Urinalysis - C+S If Indicated (10/16/17 15:35) Blood Culture (10/16/17 15:35) Chest, Pa & Lat (10/16/17 15:35) Morphine Inj (Morphine Inj) (10/16/17 17:00) Ondansetron Inj (Zofran Inj) (10/16/17 17:00) Ct Abd/Pel W Iv Contrast(Rout) (10/16/17 17:16) Iohexol 350 Inj (Omnipaque 350 Inj) (10/16/17 15:26) Potassium Chloride (Kcl) (10/16/17 18:45) Ed Discharge Order (10/16/17 18:42) Labs Laboratory Tests Test 10/16/17 15:47 10/16/17 15:50 10/16/17 16:45 White Blood Count 4.9 TH/MM3 Red Blood Count 4.63 MIL/MM3 Hemoglobin 15.1 GM/DL Hematocrit 42.6 % Mean Corpuscular Volume 92.1 FL Mean Corpuscular Hemoglobin 32.6 PG Mean Corpuscular Hemoglobin Concent 35.3 % Red Cell Distribution Width 13.5 % Platelet Count 156 TH/MM3 Mean Platelet Volume 7.8 FL Neutrophils (%) (Auto) 45.1 % Lymphocytes (%) (Auto) 40.1 % Monocytes (%) (Auto) 9.1 % Eosinophils (%) (Auto) 5.0 % Basophils (%) (Auto) 0.7 % Neutrophils # (Auto) 2.2 TH/MM3 Lymphocytes # (Auto) 1.9 TH/MM3 Monocytes # (Auto) 0.4 TH/MM3 Eosinophils # (Auto) 0.2 TH/MM3 Basophils # (Auto) 0.0 TH/MM3 CBC Comment DIFF FINAL Differential Comment Prothrombin Time 10.3 SEC Prothromb Time International Ratio 0.9 RATIO Activated Partial Thromboplast Time 27.1 SEC Blood Urea Nitrogen 18 MG/DL Creatinine 1.07 MG/DL Random Glucose 114 MG/DL Total Protein 8.6 GM/DL Albumin 3.6 GM/DL Calcium Level 8.8 MG/DL Magnesium Level 1.7 MG/DL Alkaline Phosphatase 52 U/L Aspartate Amino Transf (AST/SGOT) 43 U/L Alanine Aminotransferase (ALT/SGPT) 57 U/L Total Bilirubin 0.5 MG/DL Sodium Level 138 MEQ/L Potassium Level 3.4 MEQ/L Chloride Level 106 MEQ/L Carbon Dioxide Level 24.7 MEQ/L Anion Gap 7 MEQ/L Estimat Glomerular Filtration Rate 74 ML/MIN Lipase 143 U/L Urine Color YELLOW Urine Turbidity CLEAR Urine pH 6.0 Urine Specific Model 1.029 Urine Protein 30 mg/dL Urine Glucose (UA) NEG mg/dL Urine Ketones NEG mg/dL Urine Occult Blood NEG Urine Nitrite NEG Urine Bilirubin NEG Urine Urobilinogen 2.0 MG/DL Urine Leukocyte Esterase NEG Urine RBC 2 /hpf Urine WBC LESS THAN 1 /hpf Urine Mucus MOD /lpf Microscopic Urinalysis Comment CATH-CULT NOT IND Lactic Acid Level 1.1 mmol/L MDM Medical Decision Making Medical Screen Exam Complete: Yes Emergency Medical Condition: Yes Differential Diagnosis musculoskeletal pain versus PNA versus nephroureterolithiasis versus other Narrative Course 47 YO M with PMH of HIV, schizoaffective presents to the ED for evaluation of 3 day history of bilateral flank pain. Rated 8/10, described as constant. Worsened by coughing or sneezing. Patient can identify no acute injury. He endorses chronic nonproductive cough secondary to cigarette smoking. He endorses mild nausea with 1 episode of nonbloody vomiting today. He has a history of IVDA, in remission for 3 years. He is not currently taking any HIV medications. States that his CD4 count is "around 36." He doesn't have a PCP or psychiatrist. Currently taking Geodon prescribed at last ED admission. Workup was initiated in triage. Patient hypertensive on presentation. Physical exam reveals an obese white male in no acute distress. Chest is CTA B. Abdomen soft, nondistended. Tender to palpation in the bilateral flanks/ costophrenic angles. Easily reducible periumbilical hernia. Otherwise unremarkable. IV is established. Patient was administered 4 mg morphine, 4 mg Zofran. Potassium 3.4. No other concerning abnormalities in CBC, CMP, INR, UA. Lipase and lactic acid within normal limits. CXR: No acute cardiopulmonary disease per radiology read. CT abdomen and pelvis: Nonobstructing renal calculi without hydronephrosis. Bilateral renal cyst. Fat-containing periumbilical hernia. No acute findings per radiology read. Patient was administered 1 g of potassium by mouth. I discussed the results of the workup with the patient. He is instructed to return to normal, gentle activity as tolerated, follow up with the [facility]. The patient indicated understanding of the instructions and is agreeable to this care plan. He is stable and discharged home. Diagnosis Primary Impression: Abdominal pain Qualified Codes: R10.10 - Upper abdominal pain, unspecified Referrals: Infectious Disease Specialist Primary Care Physician Patient Instructions: Abdominal Pain (ED), General Instructions Additional Instructions: Rest, hydrate. Resuming normal, gentle activities as tolerated. Establish care with a infectious disease specialist as soon as possible. You may follow-up with the [facility] to establish a primary care. Return to the ED for any urgent or emergent medical condition. Scripts No Active Prescriptions or Reported Meds Disposition: 01 DISCHARGE HOME Condition: Stable Vita Berry Oct 16, 2017 16:59
--- NOTE | 2017-10-16 18:30 | RADRPT ---
EXAM DATE/TIME: 10/16/2017 18:08 [facility] COMPARISON: No previous studies available for comparison. INDICATIONS : Bilateral flank pain past 4 days. IV CONTRAST: 82 cc Omnipaque 350 (iohexol) IV ORAL CONTRAST: No oral contrast ingested. RADIATION DOSE: 15.67 CTDIvol (mGy) MEDICAL HISTORY : Renal calculi. Hepatitis C. HIV.Cirrohsis SURGICAL HISTORY : None. ENCOUNTER: Initial ACUITY: 4 - 6 days PAIN SCALE: 6/10 LOCATION: Bilateral flank TECHNIQUE: Volumetric scanning of the abdomen and pelvis was performed. Using automated exposure control and ad justment of the mA and/or kV according to patient size, radiation dose was kept as low as reasonably achievable to obtain optimal diagnostic quality images. DICOM format image data is available electro nically for review and comparison. FINDINGS: LOWER LUNGS: The visualized lower lungs are clear. LIVER: Homogeneous density without lesion. There is no dilation of the biliary tree. No calcified gallston es. SPLEEN: Normal size without lesion. PANCREAS: Within normal limits. KIDNEYS: Normal in size and shape. There is no mass or hydronephrosis. 70 mm calculus upper pole left kidney and 3-4 mm calculus lower pole left kidney. Numerous bilateral renal intensities. ADRENAL GLANDS: Within normal limits. VASCULAR: There is no aortic aneurysm. BOWEL/MESENTERY: The stomach, small bowel, and colon demonstrate no acute abnormality. There is no free intraperitone al air or fluid. ABDOMINAL WALL: Prominent fat-containing periumbilical hernia. RETROPERITONEUM: There is no lymphadenopathy. BLADDER: No wall thickening or mass. REPRODUCTIVE: Within normal limits. INGUINAL: There is no lymphadenopathy or hernia. MUSCULOSKELETAL: Within normal limits for patient age. CONCLUSION: 1. Several non-obstructing left-sided renal calculi. 2. No evidence for hydronephrosis. 3. Bilateral renal intensities likely cysts. 4. Prominent fat containing paraumbilical hernia. Serge Del Toro MD on October 16, 2017 at 18:25 Board Certified Radiologist. This report was verified electronically.
[2017-10-16] MEDS ORDERED: POTASSIUM CHLORIDE 20 MEQ CONTROLLED RELEASE TAB PO ONE (18:45)
[2017-10-16 18:51] VITALS: BP 125/76
== END 2017-10-16 18:52 | disposition home or self-care (01) ==
LOC: NEPC 15:25
DX: R10.10 Upper abdominal pain, unspecified (principal); N20.0 Calculus of kidney; K42.9 Umbilical hernia without obstruction or gangrene; F17.210 Nicotine dependence, cigarettes, uncomplicated; B19.20 Unspecified viral hepatitis C without hepatic coma; Z21 Asymptomatic human immunodeficiency virus [HIV] infection status
CPT/HCPCS: 71020; 74177; 80053; 81001; 83605; 83690; 83735; 85025; 85610; 85730; 87040; 96374; 96375; 99285; J2270; J2405; Q9967

== ENCOUNTER 2017-11-23 19:17 | Inpatient (IN) | payer MEDICAID ==
[~2017-11-23] VITALS: Ht 177.8 cm; Wt 106.5 kg
[2017-11-23 19:18] VITALS: BP 170/75; PULSE 122; RESP 20; TEMP 98.8; O2SAT 95
--- NOTE | 2017-11-23 20:19 | RADRPT ---
EXAM DATE/TIME: 11/23/2017 19:55 [facility] COMPARISON: CHEST SINGLE AP, October 31, 2016, 2:55. INDICATIONS : Cough. MEDICAL HISTORY : Renal calculi. Hepatitis C. HIV.Cirrohsis. SURGICAL HISTORY : None. ENCOUNTER: Initial ACUITY: 1 day PAIN SCORE: 0/10 LOCATION: Bilateral chest FINDINGS: A single view of the chest demonstrates the lungs to be symmetrically aerated without evidence of mas s, infiltrate or effusion. The cardiomediastinal contours are unremarkable. Osseous structures are intact. CONCLUSION: 1. No active disease. No effusion or pneumothorax. Isael Tian MD on November 23, 2017 at 20:16 Board Certified Radiologist. This report was verified electronically.
[2017-11-23 21:40] VITALS: BP 132/82; PULSE 108; RESP 20; O2SAT 95
[2017-11-23 22:52] VITALS: BP 133/76; PULSE 98; RESP 20; O2SAT 96
[2017-11-23 23:12] VITALS: BP 141/72; PULSE 106; RESP 20; TEMP 100.5; O2SAT 96
[2017-11-23] MEDS ORDERED: cefTRIAXone INJ 1,000 MG in SODIUM CHLORIDE 0.9% INJ 100 ML IV ONE (23:45)
[2017-11-23] MEDS ORDERED: SODIUM CHLOR 0.9% 1000 ML INJ 1,000 ML IV ONE (23:45)
[2017-11-23] MEDS ORDERED: AZITHROMYCIN INJ 500 MG in SODIUM CHLOR 0.9% 250 ML INJ 250 ML IV ONE (23:45)
[2017-11-23] MEDS ORDERED: ACETAMINOPHEN 325 MG TAB PO ONE (23:45)
[2017-11-23 23:51] VITALS: BP 128/79; PULSE 94; RESP 20; O2SAT 96
[2017-11-23 23:54] LABS: AUTOMATED NEUTROPHIL # 3.9 TH/MM3 (1.8-7.7); BASOPHIL % 0.4 % (0.0-2.0); EOSINOPHIL # 0.1 TH/MM3 (0-0.4); EOSINOPHIL % 2.4 % (0.0-4.0); HEMATOCRIT 36.8 % (39.0-51.0); HEMOGLOBIN 13.2 GM/DL (13.0-17.0); LYMPHOCYTE # 1.2 TH/MM3 (1.0-4.8); MEAN CELL VOLUME 88.2 FL (80.0-100.0); MEAN CORPUSCULAR HEMOGLOBIN 31.7 PG (27.0-34.0); MEAN CORPUSCULAR HGB CONC 35.9 % (32.0-36.0); MEAN PLATELET VOLUME 8.4 FL (7.0-11.0); MONO % 14.3 % (0.0-8.0); MONOCYTE # 0.9 TH/MM3 (0-0.9); NEUT % 63.9 % (16.0-70.0); PLATELET COUNT 179 TH/MM3 (150-450); RED BLOOD COUNT 4.17 MIL/MM3 (4.50-5.90); RED CELL DISTRIBUTION WIDTH 12.8 % (11.6-17.2); WHITE BLOOD COUNT 6.1 TH/MM3 (4.0-11.0)
[2017-11-24] VITALS (8 sets, daily range): BP systolic 101–142; BP diastolic 52–79; PULSE 79–94; RESP 18–20; TEMP 97–100; O2SAT 94–97
[2017-11-24 00:10] LABS: ALBUMIN 3.3 GM/DL (3.4-5.0); AST (GOT) 30 U/L (15-37); BICARBONATE 26.6 MEQ/L (21.0-32.0); BLOOD UREA NITROGEN 15 MG/DL (7-18); CALCIUM 8.7 MG/DL (8.5-10.1); CHLORIDE 101 MEQ/L (98-107); CREATININE 1.07 MG/DL (0.60-1.30); GLOMERULAR FILTRATION RATE 74 ML/MIN (>89); GLUCOSE,RANDOM 106 MG/DL (74-106); SODIUM (NA) 137 MEQ/L (136-145)
[2017-11-24 00:12] LABS: ALT (GPT) 29 U/L (12-78)
[2017-11-24 00:13] LABS: ALKALINE PHOSPHATASE 44 U/L (45-117); TOTAL BILIRUBIN ADULT 0.5 MG/DL (0.2-1.0); TOTAL PROTEIN 8.2 GM/DL (6.4-8.2)
--- NOTE | 2017-11-24 00:25 | PD ---
HPI Chief Complaint: Cold / Flu Symptoms Time Seen by Provider: 22:16 Travel History International Travel<30 days: No Contact w/Intl Traveler<30days: No History of Present Illness HPI 47-year-old male arrives from [facility]. He was therefore opioid dependence. Patient was sent here due to complaints of cough fever and chest pain. He has a history of IV heroin abuse. Positive subjective fever. The patient denies sick contacts. Last use of heroin reportedly earlier today. PFSH Past Medical History Bipolar Disorder: Yes Depression: Yes Cirrhosis: Yes Diminished Hearing: No Gastrointestinal Disorders: Yes (UMBILICAL HERNIA) Hepatitis: Yes (C) Immune Disorder: Yes (HIV ) Kidney Stones: Yes Psychiatric: Yes Immunizations Current: Yes Social History Alcohol Use: No Tobacco Use: Yes (2 PPD ) Substance Use: Yes (hx COCAINE-heroin) Allergies-Medications (Allergen,Severity, Reaction): Coded Allergies: haloperidol (Verified Allergy, Severe, Swelling, 10/16/17) TONGUE SWELLING - Per pt. Reported Meds & Prescriptions Reported Meds & Active Scripts Active No Active Prescriptions or Reported Medications Review of Systems Except as stated in HPI: all other systems reviewed are Neg General / Constitutional: No: Fever Physical Exam Narrative GENERAL: 47 yo M, WNWD, NAD SKIN: Warm and dry. HEAD: Atraumatic. Normocephalic. EYES: Pupils equal and round. No scleral icterus. No injection or drainage. ENT: No nasal bleeding or discharge. Mucous membranes pink and moist. NECK: Trachea midline. No JVD. CARDIOVASCULAR: Regular rate and rhythm. RESPIRATORY: No accessory muscle use. Clear to auscultation. Breath sounds equal bilaterally. GASTROINTESTINAL: Abdomen soft, non-tender, nondistended. Hepatic and splenic margins not palpable. MUSCULOSKELETAL: Extremities without clubbing, cyanosis, or edema. No obvious deformities. NEUROLOGICAL: Awake and alert. No obvious cranial nerve deficits. Motor grossly within normal limits. Five out of 5 muscle strength in the arms and legs. Normal speech. PSYCHIATRIC: Appropriate mood and affect; insight and judgment normal. Data Data Last Documented VS Vital Signs Date Time Temp Pulse Resp B/P (MAP) Pulse Ox O2 Delivery O2 Flow Rate FiO2 11/23/17 23:51 94 20 128/79 (95) 96 Nasal Cannula 2.00 11/23/17 23:12 100.5 VS reviewed Orders Orders Chest, Single Ap (11/23/17 ) Blood Culture (11/23/17 23:00) Lactic Acid (11/23/17 23:00) Complete Blood Count With Diff (11/23/17 23:03) Comprehensive Metabolic Panel (11/23/17 23:03) Act Partial Throm Time (Ptt) (11/23/17 23:03) Ceftriaxone Inj (Rocephin Inj) (11/23/17 23:45) Azithromycin Inj (Zithromax Inj) (11/23/17 23:45) Acetaminophen (Tylenol) (11/23/17 23:45) Sodium Chlor 0.9% 1000 Ml Inj (Ns 1000 M (11/23/17 23:45) Electrocardiogram (11/24/17 ) Sodium Chlor 0.9% 1000 Ml Inj (Ns 1000 M (11/24/17 00:45) Admit Order (Ed Use Only) (11/24/17 ) Marker Delivery / Telemetry AGUSTIN.Q8H (11/24/17 00:42) Vital Signs (Adult) Q4H (11/24/17 00:42) Diet Heart Healthy (11/24/17 Breakfast) Activity Bed Rest (11/24/17 00:42) Consult Psychiatry (11/24/17 ) Labs Laboratory Tests Test 11/23/17 22:50 White Blood Count 6.1 TH/MM3 Red Blood Count 4.17 MIL/MM3 Hemoglobin 13.2 GM/DL Hematocrit 36.8 % Mean Corpuscular Volume 88.2 FL Mean Corpuscular Hemoglobin 31.7 PG Mean Corpuscular Hemoglobin Concent 35.9 % Red Cell Distribution Width 12.8 % Platelet Count 179 TH/MM3 Mean Platelet Volume 8.4 FL Neutrophils (%) (Auto) 63.9 % Lymphocytes (%) (Auto) 19.0 % Monocytes (%) (Auto) 14.3 % Eosinophils (%) (Auto) 2.4 % Basophils (%) (Auto) 0.4 % Neutrophils # (Auto) 3.9 TH/MM3 Lymphocytes # (Auto) 1.2 TH/MM3 Monocytes # (Auto) 0.9 TH/MM3 Eosinophils # (Auto) 0.1 TH/MM3 Basophils # (Auto) 0.0 TH/MM3 CBC Comment DIFF FINAL Differential Comment Activated Partial Thromboplast Time 26.3 SEC Blood Urea Nitrogen 15 MG/DL Creatinine 1.07 MG/DL Random Glucose 106 MG/DL Total Protein 8.2 GM/DL Albumin 3.3 GM/DL Calcium Level 8.7 MG/DL Alkaline Phosphatase 44 U/L Aspartate Amino Transf (AST/SGOT) 30 U/L Alanine Aminotransferase (ALT/SGPT) 29 U/L Total Bilirubin 0.5 MG/DL Sodium Level 137 MEQ/L Potassium Level 3.4 MEQ/L Chloride Level 101 MEQ/L Carbon Dioxide Level 26.6 MEQ/L Anion Gap 9 MEQ/L Estimat Glomerular Filtration Rate 74 ML/MIN Lactic Acid Level 2.5 mmol/L [facility] Medical Decision Making Medical Screen Exam Complete: Yes Emergency Medical Condition: Yes Medical Record Reviewed: Yes Differential Diagnosis NSTEMI, unstable angina, coronary vasospasm, PE, PTX, aortic dissection, pericarditis, myocarditis, endocarditis, PNA, esophageal disease, aneurysm, musculoskeletal etiologies, anxiety, cocaine/sympathomimetic abuse Narrative Course CBC & BMP Diagram 11/23/17 22:50 Total Protein 8.2, Albumin 3.3 L, Calcium Level 8.7, Alkaline Phosphatase 44 L, Aspartate Amino Transf (AST/SGOT) 30, Alanine Aminotransferase (ALT/SGPT) 29, Total Bilirubin 0.5 Last Impressions Chest X-Ray 11/23/17 0000 Signed Impressions: Service Date/Time: Thursday, November 23, 2017 19:55 - CONCLUSION: 1. No active disease. No effusion or pneumothorax. Isael Tian MD Blood cultures drawn IVDU w fever and cough Last CD4 count 296 in June. Pt reprots HAART compliance. Echocardiogram may be indicated per clinical discretion of admitting service d/w Dr Miranda pt reports to RN he "does not feel safe" with suicidal preoccupations however no intent to harm self currently. psychiatry consult added. Sepsis Criteria SIRS Criteria (2 or more): Heart rate over 90 Severe Sepsis (+one): Lactate >2 Diagnosis Primary Impression: IVDU (intravenous drug user) Additional Impression: URI (upper respiratory infection) Qualified Codes: J06.9 - Acute upper respiratory infection, unspecified Admitting Information Admitting Physician Requests: Observation Scripts No Active Prescriptions or Reported Meds Prem Downing MD Nov 24, 2017 00:25
[2017-11-24] MEDS ORDERED: SODIUM CHLOR 0.9% 1000 ML INJ 1,000 ML IV ONE (00:45)
[2017-11-24] MEDS ORDERED: ONDANSETRON HCL 4 MG/2 ML VIAL IVP PRN (01:00)
[2017-11-24] MEDS ORDERED: LACTULOSE SYRUP 20 GM/30 ML CUP PO PRN (01:00)
[2017-11-24] MEDS ORDERED: MAGNESIUM HYDROXIDE SUSP 30 ML CUP PO PRN (01:00)
[2017-11-24] MEDS ORDERED: ACETAMINOPHEN/HYDROcodone 325 MG/5 MG TAB PO PRN (01:00)
[2017-11-24] MEDS ORDERED: ACETAMINOPHEN/HYDROcodone 325 MG/10 MG TAB PO PRN (01:00)
[2017-11-24] MEDS ORDERED: SENNOSIDES 8.6 MG TAB PO PRN (01:00)
[2017-11-24] MEDS ORDERED: BISACODYL 10 MG SUPP RECTAL PRN (01:00)
[2017-11-24] MEDS ORDERED: Vancomycin Consult Pharmacy 1 EA OTHER SCH (01:00)
[2017-11-24] MEDS ORDERED: SODIUM CHLORIDE 0.9% FLUSH 10 ML FLUSH IV FLUSH PRN (01:00)
[2017-11-24] MEDS: SODIUM CHLOR 0.9% 1000 ML INJ 1,000 ML IV SCH ×4 (01:23→23:51)
[2017-11-24] MEDS ORDERED: VANCOMYCIN INJ 2,000 MG in SODIUM CHLORID 0.9% 500 ML INJ 500 ML IV SCH (02:00)
--- NOTE | 2017-11-24 03:25 | HHI.HP ---
[facility] Physician Unknown Admission Diagnosis URI; IVDU Diagnoses: (1) SIRS (systemic inflammatory response syndrome) Diagnosis: Principal (2) Dehydration Diagnosis: Principal (3) Hypokalemia Diagnosis: Principal (4) HIV (human immunodeficiency virus infection) Diagnosis: Principal (5) IVDU (intravenous drug user) Diagnosis: Principal (6) Depression Diagnosis: Principal Travel History International Travel<30 Days: No Contact w/Intl Traveler <30 Da: No History of Present Illness This is a 47-year-old male with PMH of Anxiety, Depression, Bipolar Disorder, Hepatitis C, HIV (CD4 296 on 07/16/17), Tobacco Abuse and IVDU w/ Cocaine/Heroin who was sent to the ER from [facility] for evaluation of cough and fever. Symptoms ongoing for approx 2 days. Denies sick contacts, no SOB or chest pain. Admits to ongoing IVDU, last use yesterday. On arrival, BP 141/72 , HR 106, O2 sat 96% on 2L NC, Temp 100.5. CBC essentially unremarkable. K+ 3.4. CXR with no acute findings. S/p Rocephin/Zithro in ER. Of note, pt reports depression but denies suicidal ideation. Review of Systems Except as stated in HPI: all other systems reviewed are Neg ROS: 14 point review of systems otherwise negative. Past Family Social History Past Medical History PMH: Anxiety, Depression, Bipolar Disorder, Hepatitis C, HIV (CD4 296 on ), Tobacco Abuse and IVDU w/ Cocaine/Heroin Past Surgical History PAST SURGICAL HISTORY: None Allergies: Coded Allergies: haloperidol (Verified Allergy, Severe, Swelling, 10/16/17) TONGUE SWELLING - Per pt. Family History PAST FAMILY HISTORY: Reviewed. No h/o DM or CAD Social History PAST SOCIAL HISTORY: Negative for alcohol. Smokes 1/2-1ppd. IVDU w/ Cocaine/ Heroin, last use yesterday. Physical Exam Vital Signs Vital Signs Date Time Temp Pulse Resp B/P (MAP) Pulse Ox O2 Delivery O2 Flow Rate FiO2 1/6/18 01:02 88 20 129/59 (82) 95 Room Air 2.00 11/24/17 00:54 99.9 11/23/17 23:51 94 20 128/79 (95) 96 Nasal Cannula 2.00 11/23/17 23:12 100.5 106 20 141/72 (95) 96 Nasal Cannula 2.00 11/23/17 22:52 98 20 133/76 (95) 96 Room Air 11/23/17 21:40 108 20 132/82 (99) 95 Room Air 11/23/17 19:18 98.8 122 20 170/75 (106) 95 Room Air Physical Exam PE: GENERAL: Middle-aged male in no acute distress. HEENT: PERRLA, EOMI. No scleral icterus or conjunctival pallor. No lid lag or facial droop. CARDIOVASCULAR: Regular rate and rhythm. No obvious murmurs to auscultation. No chest tenderness to palpation. RESPIRATORY: No obvious rhonchi or wheezing. Clear to auscultation. Breath sounds equal bilaterally. GASTROINTESTINAL: Abdomen soft, non-tender, nondistended. BS normal. MUSCULOSKELETAL: Extremities without clubbing, cyanosis, or edema. No obvious deformities. NEUROLOGICAL: Awake, alert and oriented x4. No focal neurologic deficits. Moving both upper and lower extremities spontaneously. Laboratory Laboratory Tests Test 11/23/17 22:50 White Blood Count 6.1 Red Blood Count 4.17 Hemoglobin 13.2 Hematocrit 36.8 Mean Corpuscular Volume 88.2 Mean Corpuscular Hemoglobin 31.7 Mean Corpuscular Hemoglobin Concent 35.9 Red Cell Distribution Width 12.8 Platelet Count 179 Mean Platelet Volume 8.4 Neutrophils (%) (Auto) 63.9 Lymphocytes (%) (Auto) 19.0 Monocytes (%) (Auto) 14.3 Eosinophils (%) (Auto) 2.4 Basophils (%) (Auto) 0.4 Neutrophils # (Auto) 3.9 Lymphocytes # (Auto) 1.2 Monocytes # (Auto) 0.9 Eosinophils # (Auto) 0.1 Basophils # (Auto) 0.0 CBC Comment DIFF FINAL Differential Comment Activated Partial Thromboplast Time 26.3 Blood Urea Nitrogen 15 Creatinine 1.07 Random Glucose 106 Total Protein 8.2 Albumin 3.3 Calcium Level 8.7 Alkaline Phosphatase 44 Aspartate Amino Transf (AST/SGOT) 30 Alanine Aminotransferase (ALT/SGPT) 29 Total Bilirubin 0.5 Sodium Level 137 Potassium Level 3.4 Chloride Level 101 Carbon Dioxide Level 26.6 Anion Gap 9 Estimat Glomerular Filtration Rate 74 Lactic Acid Level 2.5 Date/Time Source Procedure Growth Status 11/23/17 22:55 Blood Peripheral Aerobic Blood Culture Pending Received 11/23/17 22:55 Blood Peripheral Anaerobic Blood Culture Pending Received Result Diagram: 11/23/17224911/23/172249 Caprini VTE Risk Assessment Caprini VTE Risk Assessment: No/Low Risk (score <= 1) Caprini Risk Assessment Model Point Value = 1 Point Value = 2 Point Value = 3 Point Value = 5 Age 41-60 Minor surgery BMI > 25 kg/m2 Swollen legs Varicose veins or History of unexplained or recurrent spontaneous Oral contraceptives or hormone replacement Sepsis (< 1 month) Serious lung disease, including pneumonia (< 1 month) Abnormal pulmonary function Acute myocardial infarction Congestive heart failure (< 1 month) History of inflammatory bowel disease Medical patient at bed rest Age 61-74 Arthroscopic surgery Major open surgery (> 45 min) Laparoscopic surgery (> 45 min) Malignancy Confined to bed (> 72 hours) Immobilizing plaster cast Central venous access Age >= 75 History of VTE Family history of VTE Factor V Leiden Prothrombin [id number] Lupus anticoagulant Anticardiolipin antibodies Elevated serum homocysteine Heparin-induced thrombocytopenia Other congenital or acquired thrombophilia Stroke (< 1 month) Elective arthroplasty Hip, pelvis, or leg fracture Acute spinal cord injury (< 1 month) Prophylaxis Regimen Total Risk Factor Score Risk Level Prophylaxis Regimen 0-1 Low Early ambulation 2 Moderate Order ONE of the following: *Sequential Compression Device (SCD) *Heparin 5000 units SQ BID 3-4 Higher Order ONE of the following medications: *Heparin 5000 units SQ TID *Enoxaparin/Lovenox 40 mg SQ daily (WT < 150 kg, CrCl > 30 mL/min) *Enoxaparin/Lovenox 30 mg SQ daily (WT < 150 kg, CrCl > 10-29 mL/min) *Enoxaparin/Lovenox 30 mg SQ BID (WT < 150 kg, CrCl > 30 mL/min) AND/OR *Sequential Compression Device (SCD) 5 or more Highest Order ONE of the following medications: *Heparin 5000 units SQ TID (Preferred with Epidurals) *Enoxaparin/Lovenox 40 mg SQ daily (WT < 150 kg, CrCl > 30 mL/min) *Enoxaparin/Lovenox 30 mg SQ daily (WT < 150 kg, CrCl > 10-29 mL/min) *Enoxaparin/Lovenox 30 mg SQ BID (WT < 150 kg, CrCl > 30 mL/min) AND *Sequential Compression Device (SCD) Assessment and Plan Problem List: (1) SIRS (systemic inflammatory response syndrome) ICD Code: R65.10 - Systemic inflammatory response syndrome (SIRS) of non- infectious origin without acute organ dysfunction (2) HIV (human immunodeficiency virus infection) ICD Code: B20 - Human immunodeficiency virus [HIV] disease (3) Dehydration ICD Code: E86.0 - Dehydration (4) Hypokalemia ICD Code: E87.6 - Hypokalemia (5) Depression ICD Code: F32.9 - Major depressive disorder, single episode, unspecified (6) IVDU (intravenous drug user) ICD Code: F19.90 - Other psychoactive substance use, unspecified, uncomplicated Status: Acute Assessment and Plan A/P: 1. SIRS: Likely Acute Viral Syndrome, however monitor closely in light of h/o HIV and IVDU. Temp 100.5, HR 106, no obvious source. CXR w/ no acute findings , images reviewed by me. Check U/a. S/p Rocephin/Zithro in ER, will continue w / IV Abx for empiric coverage of underlying infection. 2. HIV: Last CD4 296 on 07/16/17, reports being on HAART regimen, will hold for now in light of acute infection. 3. Dehydration: GFR 74, check UA as above, IVF for hydration, repeat labs in a.m. 4. Hypokalemia: K+ 3.4, will replace and recheck 5. Depression: reports depression, however denies suicidal ideation. Consult Psych for further evaluation. 6. IVDU: w/ Cocaine/Heroin, admits to ongoing use, last use yesterday, concern for possible Endocarditis in light of SIRS, check Echo to eval for possible vegetation, follow up Blood Cultures, continue IV Abx. Consult ID as needed. 7. DVT Prophylaxis: SCD/Teds. 8. Social work for d/c planning as needed. 9. Case discussed w/ ER physician at length, previous records/labs/imaging reviewed by me. Physician Certification 2 Midnight Certification Type: Admission for Inpatient Services Order for Inpatient Services The services are ordered in accordance with Medicare regulations or non- Medicare payer requirements, as applicable. In the case of services not specified as inpatient-only, they are appropriately provided as inpatient services in accordance with the 2-midnight benchmark. Estimated LOS (days): 2 days is the estimated time the patient will need to remain in the hospital, assuming treatment plan goals are met and no additional complications. Post-Hospital Plan: Not yet determined Soraya Miranda MD Nov 24, 2017 03:25
[2017-11-24] MEDS: SODIUM CHLORIDE 0.9% FLUSH 10 ML FLUSH IV FLUSH SCH ×2 (09:00→23:34)
[2017-11-24] MEDS: DOCUSATE SODIUM 50 MG/SENNA 8.6 MG TAB PO SCH ×2 (09:00→21:00)
[2017-11-24] MEDS: CEFEPIME INJ 1,000 MG in SODIUM CHLORIDE 0.9% INJ 100 ML IV SCH ×3 (10:19→23:38)
[2017-11-24] MEDS ORDERED: POTASSIUM CHLORIDE 25 MEQ EFFERVESCENT TAB PO ONE (11:00)
[2017-11-24 11:28] LABS: BILIRUBIN, URINE NEG (NEG); BLOOD, URINE NEG (NEG); GLUCOSE,URINE NEG (NEG); KETONE, URINE NEG (NEG); MUCUS URINE FEW /lpf (OCC); NITRITE,URINE NEG (NEG); PH, URINE 6.5 (5.0-8.5); URINE COLOR YELLOW (YELLW/STRAW); URINE LEUKOCYTE ESTERASE NEG (NEG)
--- NOTE | 2017-11-24 12:50 | EKG ---
Date Performed: 11/24/2017 Time Performed: 00:33:23 PTAGE: 47 years EKG: Sinus rhythm Incomplete RIGHT BUNDLE BRANCH BLOCK ABNORMAL ECG PREVIOUS TRACING : 07/14/2017 08.00 Since previous tracing, axis less leftward; otherwise, no s ignificant change. DOCTOR: Liam Sorto Interpretating Date/Time 11/24/2017 12:49:39
--- NOTE | 2017-11-24 13:07 | PD.PSY.CON ---
Provisional Diagnosis Admission Date Nov 24, 2017 at 00:45 [place] I. Opiate abuse History of Present Illness Service Psychiatry Consult Requested By Attending physician Reason for Consult "Suicidal" Primary Care Physician Unknown HPI Heroin addict who was transferred here from [facility]. Patient is not suicidal and wants to go to a sober living facility once he is medically stable and cleared for discharge. No psychotic symptoms and no cognitive deficits. No suicidal or homicidal ideation, plan or intent. Review of Systems Except as stated in HPI: all other systems reviewed are Neg Past Family Social History Coded Allergies: haloperidol (Verified Allergy, Severe, Swelling, 10/16/17) TONGUE SWELLING - Per pt. No Active Prescriptions or Reported Meds Current Medications Medications (Trade) Dose Ordered Sig/Michelle Route Start Time Stop Time Status Last Admin Pharmacy Profile Note 0 ml @ 0 mls/hr UNSCH OTHER 11/24/17 01:00 Cefepime HCl 1000 mg/Sodium Chloride 100 ml @ 200 mls/hr Q12H IV 11/24/17 09:00 11/24/17 10:19 Sodium Chloride 1,000 ml @ 100 mls/hr Q10H IV 11/24/17 00:47 11/24/17 10:20 (NS Flush) 2 ml UNSCH PRN IV FLUSH 11/24/17 01:00 (NS Flush) 2 ml BID IV FLUSH 11/24/17 09:00 (Zofran Inj) 4 mg Q6H PRN IVP 11/24/17 01:00 (Tylenol) 650 mg Q6H PRN PO 11/24/17 01:00 ([place] 5-325 Mg) 1 tab Q4H PRN PO 11/24/17 01:00 ([place] 10-325 Mg) 1 tab Q4H PRN PO 11/24/17 01:00 (Misa-Colace) 1 tab BID PO 11/24/17 09:00 (Milk Of Magnesia Liq) 30 ml Q12H PRN PO 11/24/17 01:00 (Senokot) 17.2 mg Q12H PRN PO 11/24/17 01:00 (Dulcolax Supp) 10 mg DAILY PRN RECTAL 11/24/17 01:00 (Lactulose Liq) 30 ml DAILY PRN PO 11/24/17 01:00 Miscellaneous Information SPECIFIC LAB TO BE DRAWN:VA... ONCE ONCE .XX 11/26/17 01:45 11/26/17 01:46 Vancomycin HCl 1500 mg/Sodium Chloride 515 ml @ 257.5 mls/ hr Q12H IV 11/24/17 14:00 Family Psych History Declined to discuss. Social History IV drug addict Patient's Strengths (min. 2) Verbal and has access to healthcare. Physical Exam Vital Signs Vital Signs Date Time Temp Pulse Resp B/P (MAP) Pulse Ox O2 Delivery O2 Flow Rate FiO2 11/24/17 08:00 98.1 79 18 132/67 (88) 95 11/24/17 01:02 Room Air 2.00 I/O 11/24/17 11/24/17 11/25/17 08:00 16:00 00:00 Intake Total 2350 ml Output Total 100 ml Balance 2250 ml Lab Results Test 11/23/17 22:50 11/24/17 09:30 White Blood Count 6.1 TH/MM3 Red Blood Count 4.17 MIL/MM3 Hemoglobin 13.2 GM/DL Hematocrit 36.8 % Mean Corpuscular Volume 88.2 FL Mean Corpuscular Hemoglobin 31.7 PG Mean Corpuscular Hemoglobin Concent 35.9 % Red Cell Distribution Width 12.8 % Platelet Count 179 TH/MM3 Mean Platelet Volume 8.4 FL Neutrophils (%) (Auto) 63.9 % Lymphocytes (%) (Auto) 19.0 % Monocytes (%) (Auto) 14.3 % Eosinophils (%) (Auto) 2.4 % Basophils (%) (Auto) 0.4 % Neutrophils # (Auto) 3.9 TH/MM3 Lymphocytes # (Auto) 1.2 TH/MM3 Monocytes # (Auto) 0.9 TH/MM3 Eosinophils # (Auto) 0.1 TH/MM3 Basophils # (Auto) 0.0 TH/MM3 CBC Comment DIFF FINAL Differential Comment Activated Partial Thromboplast Time 26.3 SEC Blood Urea Nitrogen 15 MG/DL Creatinine 1.07 MG/DL Random Glucose 106 MG/DL Total Protein 8.2 GM/DL Albumin 3.3 GM/DL Calcium Level 8.7 MG/DL Alkaline Phosphatase 44 U/L Aspartate Amino Transf (AST/SGOT) 30 U/L Alanine Aminotransferase (ALT/SGPT) 29 U/L Total Bilirubin 0.5 MG/DL Sodium Level 137 MEQ/L Potassium Level 3.4 MEQ/L Chloride Level 101 MEQ/L Carbon Dioxide Level 26.6 MEQ/L Anion Gap 9 MEQ/L Estimat Glomerular Filtration Rate 74 ML/MIN Lactic Acid Level 2.5 mmol/L Urine Color YELLOW Urine Turbidity CLEAR Urine pH 6.5 Urine Specific [place] 1.011 Urine Protein TRACE mg/dL Urine Glucose (UA) NEG mg/dL Urine Ketones NEG mg/dL Urine Occult Blood NEG Urine Nitrite NEG Urine Bilirubin NEG Urine Urobilinogen 2.0 MG/DL Urine Leukocyte Esterase NEG Urine RBC 1 /hpf Urine WBC LESS THAN 1 /hpf Urine Mucus FEW /lpf Microscopic Urinalysis Comment CULT NOT INDICATED Date/Time Source Procedure Growth Status 11/23/17 22:55 Blood Peripheral Aerobic Blood Culture - Preliminary NO GROWTH IN 1 DAY Resulted 11/23/17 22:55 Blood Peripheral Anaerobic Blood Culture - Preliminary NO GROWTH IN 1 DAY Resulted Mental Status Examination Appearance: Disheveled Consciousness: Alert Orientation: x4 Motor Activity: Normal gait Speech: Unremarkable Language: Adequate Fund of Knowledge: Adequate Attention and Concentration: Adequate Memory: Unremarkable Mood: Appropriate Affect: Appropriate Thought Process & Associations: Intact Thought Content: Appropriate Hallucination Type: None Delusion Type: None Suicidal Ideation: No Suicidal Plan: No Suicidal Intention: No Homicidal Ideation: No Homicidal Plan: No Homicidal Intention: No Insight: Adequate Judgment: Adequate Assessment & Plan Problem List: (1) Opiate abuse, continuous ICD Codes: F11.10 - Opioid abuse, uncomplicated Assessment & Plan Estimated LOS: days. Suggest you call case management to assist patient with transition to a sober living residence. Liam Greenfield MD Nov 24, 2017 13:07
[2017-11-24] MEDS: VANCOMYCIN 1,500 MG/NS 500 ML IV SCH ×2 (13:37)
[2017-11-24] MEDS: ACETAMINOPHEN 325 MG TAB PO PRN (23:50)
[2017-11-25] VITALS (8 sets, daily range): BP systolic 118–148; BP diastolic 55–85; PULSE 73–96; RESP 18; TEMP 97.9–99.1; O2SAT 93–96
[2017-11-25] MEDS: VANCOMYCIN 1,500 MG/NS 500 ML IV SCH ×4 (02:54→16:32)
[2017-11-25] MEDS: DOCUSATE SODIUM 50 MG/SENNA 8.6 MG TAB PO SCH ×2 (08:26→21:00)
[2017-11-25] MEDS: CEFEPIME INJ 1,000 MG in SODIUM CHLORIDE 0.9% INJ 100 ML IV SCH ×2 (08:26→21:27)
[2017-11-25] MEDS: SODIUM CHLORIDE 0.9% FLUSH 10 ML FLUSH IV FLUSH SCH ×2 (08:36→21:00)
[2017-11-25] MEDS: ACETAMINOPHEN 325 MG TAB PO PRN ×2 (08:39→21:29)
[2017-11-25 09:33] LABS: BASOPHIL % 0.6 % (0.0-2.0); EOSINOPHIL # 0.3 TH/MM3 (0-0.4); HEMATOCRIT 36.3 % (39.0-51.0); HEMOGLOBIN 12.7 GM/DL (13.0-17.0); LYMPH % 21.1 % (9.0-44.0); LYMPHOCYTE # 0.7 TH/MM3 (1.0-4.8); MEAN CELL VOLUME 89.6 FL (80.0-100.0); MEAN CORPUSCULAR HEMOGLOBIN 31.3 PG (27.0-34.0); MEAN PLATELET VOLUME 8.2 FL (7.0-11.0); MONO % 11.6 % (0.0-8.0); MONOCYTE # 0.4 TH/MM3 (0-0.9); NEUT % 57.7 % (16.0-70.0); PLATELET COUNT 136 TH/MM3 (150-450); RED BLOOD COUNT 4.05 MIL/MM3 (4.50-5.90); RED CELL DISTRIBUTION WIDTH 13.1 % (11.6-17.2); WHITE BLOOD COUNT 3.4 TH/MM3 (4.0-11.0)
[2017-11-25 10:14] LABS: ALBUMIN 2.7 GM/DL (3.4-5.0); ALKALINE PHOSPHATASE 37 U/L (45-117); ALT (GPT) 24 U/L (12-78); AST (GOT) 31 U/L (15-37); BLOOD UREA NITROGEN 9 MG/DL (7-18); CHLORIDE 110 MEQ/L (98-107); CREATININE 0.84 MG/DL (0.60-1.30); GLOMERULAR FILTRATION RATE 98 ML/MIN (>89); GLUCOSE,RANDOM 91 MG/DL (74-106); SODIUM (NA) 142 MEQ/L (136-145); TOTAL BILIRUBIN ADULT 0.4 MG/DL (0.2-1.0); TOTAL PROTEIN 7.1 GM/DL (6.4-8.2)
--- NOTE | 2017-11-25 11:18 | HHI.PR ---
Subjective Remarks The patient was resting in bed comfortably. He says he has a history of endocarditis. He said he was on 6 weeks of vancomycin for it. He currently feels congested and has been coughing. Discussed with nursing. Objective Vitals Vital Signs Date Time Temp Pulse Resp B/P (MAP) Pulse Ox O2 Delivery O2 Flow Rate FiO2 11/25/17 08:00 99.1 73 18 126/77 (93) 93 11/25/17 06:20 98.1 96 18 118/55 (76) 94 11/25/17 01:55 98.5 81 18 130/61 (84) 94 11/24/17 20:58 98.3 91 19 113/60 (77) 94 11/24/17 16:00 100.0 92 19 101/52 (68) 97 11/24/17 13:33 99.9 11/24/17 12:00 83 11/24/17 12:00 99.1 86 18 128/79 (95) 95 I/O 11/24/17 11/24/17 11/24/17 11/25/17 11/25/17 11/25/17 07:00 15:00 23:00 07:00 15:00 23:00 Intake Total 2350 ml 2560 ml Output Total 100 ml 2100 ml 300 ml Balance 2250 ml 460 ml -300 ml Intake Oral 2560 ml IV Total 2350 ml Output Urine Total 100 ml 2100 ml 300 ml # Bowel Movements 0 Result Diagram: 11/25/17 0825 11/25/17 0825 Imaging Last Impressions Chest X-Ray 11/23/17 0000 Signed Impressions: Service Date/Time: Thursday, November 23, 2017 19:55 - CONCLUSION: 1. No active disease. No effusion or pneumothorax. Isael Tian MD Objective Remarks GENERAL: Middle-aged male in no acute distress. HEENT: PERRLA, EOMI. No scleral icterus or conjunctival pallor. No lid lag or facial droop. CARDIOVASCULAR: Regular rate and rhythm. No obvious murmurs to auscultation. No chest tenderness to palpation. RESPIRATORY: Mild bilateral wheezing appreciated. Clear to auscultation. GASTROINTESTINAL: Abdomen distended but soft, non-tender, nondistended. BS normal. MUSCULOSKELETAL: Extremities with trace lower extremity edema. No obvious deformities. NEUROLOGICAL: Awake, alert and oriented x4. No focal neurologic deficits. Moving both upper and lower extremities spontaneously. Medications and IVs Current Medications Medications (Trade) Dose Ordered Sig/Michelle Route Start Time Stop Time Status Last Admin Pharmacy Profile Note 0 ml @ 0 mls/hr UNSCH OTHER 11/24/17 01:00 Cefepime HCl 1000 mg/Sodium Chloride 100 ml @ 200 mls/hr Q12H IV 11/24/17 09:00 11/25/17 08:26 Sodium Chloride 1,000 ml @ 100 mls/hr Q10H IV 11/24/17 00:47 11/24/17 23:51 (NS Flush) 2 ml UNSCH PRN IV FLUSH 11/24/17 01:00 (NS Flush) 2 ml BID IV FLUSH 11/24/17 09:00 11/25/17 08:36 (Zofran Inj) 4 mg Q6H PRN IVP 11/24/17 01:00 (Tylenol) 650 mg Q6H PRN PO 11/24/17 01:00 11/25/17 08:39 ([place] 5-325 Mg) 1 tab Q4H PRN PO 11/24/17 01:00 11/24/17 13:37 ([place] 10-325 Mg) 1 tab Q4H PRN PO 11/24/17 01:00 (Misa-Colace) 1 tab BID PO 11/24/17 09:00 11/25/17 08:26 (Milk Of Magnesia Liq) 30 ml Q12H PRN PO 11/24/17 01:00 (Senokot) 17.2 mg Q12H PRN PO 11/24/17 01:00 (Dulcolax Supp) 10 mg DAILY PRN RECTAL 11/24/17 01:00 (Lactulose Liq) 30 ml DAILY PRN PO 11/24/17 01:00 Miscellaneous Information SPECIFIC LAB TO BE DRAWN:VA... ONCE ONCE .XX 11/26/17 01:45 11/26/17 01:46 Vancomycin HCl 1500 mg/Sodium Chloride 515 ml @ 257.5 mls/ hr Q12H IV 11/24/17 14:00 11/25/17 02:54 A/P Problem List: (1) SIRS (systemic inflammatory response syndrome) ICD Code: R65.10 - Systemic inflammatory response syndrome (SIRS) of non- infectious origin without acute organ dysfunction (2) HIV (human immunodeficiency virus infection) ICD Code: B20 - Human immunodeficiency virus [HIV] disease (3) Dehydration ICD Code: E86.0 - Dehydration (4) Hypokalemia ICD Code: E87.6 - Hypokalemia (5) Depression ICD Code: F32.9 - Major depressive disorder, single episode, unspecified (6) IVDU (intravenous drug user) ICD Code: F19.90 - Other psychoactive substance use, unspecified, uncomplicated Status: Acute Assessment and Plan SIRS Likely Acute Viral Syndrome, however monitor closely in light of h/o HIV and IVDU. Temp 100.5, HR 106, no obvious source. CXR w/ no acute findings. U/a unremarkable. S/p Rocephin/Zithro in ER. Concern for possible Endocarditis in light of IVDU history. Has a history of prior endocarditis. - check Echo to eval for possible vegetation, follow up Blood Cultures, continue IV Abx. Consult ID as needed. - will continue w/ IV Abx for empiric coverage of underlying infection. - follow culture data. HIV Last CD4 296 on 07/16/17. Reports being off HAART regimen for the past 5 months. - outpt follow-up. Hypokalemia Resolved with repletion. - monitor as needed. Depression Reports depression, however denies suicidal ideation. Consulted psych. - outpt follow-up. IVDU Cocaine/Heroin, admits to ongoing use, last use day prior to arrival. - cessation instruction. DVT Prophylaxis: SCD/Teds Discharge Planning Awaiting echo, blood cultures. Philippe Yepez DO Nov 25, 2017 11:18
[2017-11-25] MEDS: SODIUM CHLOR 0.9% 1000 ML INJ 1,000 ML IV SCH (12:55)
--- NOTE | 2017-11-25 17:13 | ECHRPT ---
Indication: Acute and subacute endocarditis, unspecified CONCLUSIONS The left ventricular systolic function is normal with an estimated ejection fraction in the range of 60-65%. Wall thickness is measured at the upper limits of normal. Normal left ventricular size. No vegetations noted BP: 118 / 55 HR: 76 Rhythm: Sinus MEASUREMENTS (Male / Female) Normal Values Technical Quality:Good 2D ECHO LV Diastolic Diameter PLAX 5.7 cm 4.2 - 5.9 / 3.9 - 5.3 cm LV Systolic Diameter PLAX 4.2 cm IVS Diastolic Thickness 1.1 cm 0.6 - 1.0 / 0.6 - 0.9 cm LVPW Diastolic Thickness 1.1 cm 0.6 - 1.0 / 0.6 - 0.9 cm LV Relative Wall Thickness 0.4 LVOT Diameter 2.5 cm M-MODE Aortic Root Diameter MM 4.1 cm LA Systolic Diameter MM 3.5 cm LA Ao Ratio MM 0.9 AV Cusp Separation MM 2.2 cm DOPPLER AV Peak Velocity 162.0 cm/s AV Peak Gradient 10.5 mmHg LVOT Peak Velocity 121.0 cm/s LVOT Peak Gradient 5.9 mmHg AV Area Cont Eq pk 3.7 cm Mitral E Point Velocity 96.7 cm/s Mitral A Point Velocity 68.6 cm/s Mitral E to A Ratio 1.4 LV E' Lateral Velocity 12.0 cm/s Mitral E to LV E' Lateral Ratio 8.1 LV E' Septal Velocity 9.0 cm/s Mitral E to LV E' Septal Ratio 10.8 PV Peak Velocity 119.0 cm/s PV Peak Gradient 5.7 mmHg FINDINGS LEFT VENTRICLE The left ventricular systolic function is normal with an estimated ejection fraction in the range of 60-65%. Wall thickness is measured at the upper limits of normal. Normal left ventricular size. RIGHT VENTRICLE Normal right ventricular size and systolic function. LEFT ATRIUM The left atrial size is normal. RIGHT ATRIUM The right atrial size is normal. ATRIAL SEPTUM Normal atrial septal thickness without atrial level shunting by limited color doppler interrogation. AORTA The aortic root and proximal ascending aorta are normal in size on limited imaging. MITRAL VALVE Structurally normal mitral valve. No mitral valve stenosis or regurgitation. AORTIC VALVE Trileaflet aortic valve. No aortic valve stenosis or regurgitation. TRICUSPID VALVE Structurally normal tricuspid valve. No tricuspid valve stenosis or regurgitation. PULMONARY VALVE The pulmonary valve is not well visualized. VESSELS The inferior vena cava is normal in size. PERICARDIUM No pericardial effusion. Yvan Acosta MD (Electronically Signed) Final Date:25 November 2017 17:11
--- NOTE | 2017-11-25 19:15 | HHI.PR ---
Subjective Remarks NOT seen Objective Vitals Vital Signs Date Time Temp Pulse Resp B/P (MAP) Pulse Ox O2 Delivery O2 Flow Rate FiO2 11/25/17 17:35 95 Nasal Cannula 2.00 11/25/17 16:00 98.6 78 18 126/78 (94) 95 11/25/17 12:00 98.9 77 18 133/68 (89) 96 11/25/17 08:02 94 Nasal Cannula 2.00 11/25/17 08:00 99.1 73 18 126/77 (93) 93 11/25/17 06:20 98.1 96 18 118/55 (76) 94 11/25/17 01:55 98.5 81 18 130/61 (84) 94 11/24/17 20:58 98.3 91 19 113/60 (77) 94 I/O 11/24/17 11/24/17 11/24/17 11/25/17 11/25/17 11/25/17 07:00 15:00 23:00 07:00 15:00 23:00 Intake Total 2350 ml 2560 ml 980 ml Output Total 100 ml 2100 ml 300 ml Balance 2250 ml 460 ml -300 ml 980 ml Intake Oral 2560 ml 980 ml IV Total 2350 ml Output Urine Total 100 ml 2100 ml 300 ml # Voids 3 # Bowel Movements 0 1 Result Diagram: 11/25/17 0825 11/25/17 0825 Imaging Last Impressions Chest X-Ray 11/23/17 0000 Signed Impressions: Service Date/Time: Thursday, November 23, 2017 19:55 - CONCLUSION: 1. No active disease. No effusion or pneumothorax. Isael Tian MD Objective Remarks GENERAL: Middle-aged male in no acute distress. HEENT: PERRLA, EOMI. No scleral icterus or conjunctival pallor. No lid lag or facial droop. CARDIOVASCULAR: Regular rate and rhythm. No obvious murmurs to auscultation. No chest tenderness to palpation. RESPIRATORY: Mild bilateral wheezing appreciated. Clear to auscultation. GASTROINTESTINAL: Abdomen distended but soft, non-tender, nondistended. BS normal. MUSCULOSKELETAL: Extremities with trace lower extremity edema. No obvious deformities. NEUROLOGICAL: Awake, alert and oriented x4. No focal neurologic deficits. Moving both upper and lower extremities spontaneously. Procedures none A/P Problem List: (1) SIRS (systemic inflammatory response syndrome) ICD Code: R65.10 - Systemic inflammatory response syndrome (SIRS) of non- infectious origin without acute organ dysfunction (2) HIV (human immunodeficiency virus infection) ICD Code: B20 - Human immunodeficiency virus [HIV] disease (3) Dehydration ICD Code: E86.0 - Dehydration (4) Hypokalemia ICD Code: E87.6 - Hypokalemia (5) Depression ICD Code: F32.9 - Major depressive disorder, single episode, unspecified (6) IVDU (intravenous drug user) ICD Code: F19.90 - Other psychoactive substance use, unspecified, uncomplicated Status: Acute Assessment and Plan SIRS Likely Acute Viral Syndrome, however monitor closely in light of h/o HIV and IVDU. Temp 100.5, HR 106, no obvious source. CXR w/ no acute findings. U/a unremarkable. S/p Rocephin/Zithro in ER. Concern for possible Endocarditis in light of IVDU history. Has a history of prior endocarditis. - check Echo to eval for possible vegetation, follow up Blood Cultures, continue IV Abx. Consult ID as needed. - will continue w/ IV Abx for empiric coverage of underlying infection. - follow culture data. HIV Last CD4 296 on 07/16/17. Reports being off HAART regimen for the past 5 months. - outpt follow-up. Hypokalemia Resolved with repletion. - monitor as needed. Depression Reports depression, however denies suicidal ideation. Consulted psych. - outpt follow-up. IVDU Cocaine/Heroin, admits to ongoing use, last use day prior to arrival. - cessation instruction. DVT Prophylaxis: SCD/Teds Discharge Planning Awaiting echo, blood cultures. Grover Suarez MD Nov 25, 2017 19:15
--- NOTE | 2017-11-25 19:22 | HHI.DCPOC ---
Discharge Care Plan Diagnosis: (1) HIV (human immunodeficiency virus infection) (2) SIRS (systemic inflammatory response syndrome) (3) Opiate abuse, continuous Your Health Problems Are: Difficulty with ADL Exercise Tolerance Goals to Promote Your Health * To prevent worsening of your condition and complications * To maintain your health at the optimal level Directions to Meet Your Goals Take your medications as prescribed Follow your dietary instruction Follow activity as directed Keep your appointments as scheduled Take your immunizations and boosters as scheduled If your symptoms worsen call your PCP, if no PCP go to Urgent Care Center or Emergency Room Smoking is Dangerous to Your Health. Avoid second hand smoke Call the 24-hour hour crisis hotline for domestic abuse at Grover Suarez MD Nov 25, 2017 19:22
[2017-11-26] MEDS ORDERED: PHARMACY ORDERED LAB ONE (01:45)
[2017-11-26 01:47] VITALS: BP 144/66; PULSE 61; RESP 18; TEMP 97.8; O2SAT 94
[2017-11-26] MEDS: VANCOMYCIN 1,500 MG/NS 500 ML IV SCH ×2 (02:45)
[2017-11-26 06:35] VITALS: BP 130/70; PULSE 65; RESP 18; TEMP 97.8; O2SAT 96
[2017-11-26 07:28] VITALS: O2SAT 95
[2017-11-26 07:47] LABS: HEMATOCRIT 33.8 % (39.0-51.0); HEMOGLOBIN 11.8 GM/DL (13.0-17.0); MEAN CELL VOLUME 89.4 FL (80.0-100.0); MEAN CORPUSCULAR HEMOGLOBIN 31.2 PG (27.0-34.0); MEAN CORPUSCULAR HGB CONC 34.9 % (32.0-36.0); MEAN PLATELET VOLUME 8.3 FL (7.0-11.0); PLATELET COUNT 119 TH/MM3 (150-450); RED BLOOD COUNT 3.78 MIL/MM3 (4.50-5.90); RED CELL DISTRIBUTION WIDTH 12.8 % (11.6-17.2); WHITE BLOOD COUNT 2.7 TH/MM3 (4.0-11.0)
[2017-11-26 08:00] VITALS: BP 147/84; PULSE 59; RESP 18; TEMP 98.7; O2SAT 97
[2017-11-26 08:11] LABS: BICARBONATE 23.6 MEQ/L (21.0-32.0); CALCIUM 7.9 MG/DL (8.5-10.1); CREATININE 0.87 MG/DL (0.60-1.30); MAGNESIUM 1.7 MG/DL (1.5-2.5)
[2017-11-26] MEDS: ACETAMINOPHEN 325 MG TAB PO PRN (08:56)
[2017-11-26] MEDS: DOCUSATE SODIUM 50 MG/SENNA 8.6 MG TAB PO SCH (08:57)
[2017-11-26] MEDS: CEFEPIME INJ 1,000 MG in SODIUM CHLORIDE 0.9% INJ 100 ML IV SCH (08:57)
[2017-11-26] MEDS: SODIUM CHLORIDE 0.9% FLUSH 10 ML FLUSH IV FLUSH SCH (08:57)
[2017-11-26 09:25] VITALS: PULSE 54
--- NOTE | 2017-11-26 10:15 | HHI.PR ---
Subjective Remarks F/U Viral infection. Doing better states he has arranged to be admitted at sober house in the am requesting to stay inhouse he is homeless. Waqas RN Objective Vitals Vital Signs Date Time Temp Pulse Resp B/P (MAP) Pulse Ox O2 Delivery O2 Flow Rate FiO2 11/26/17 09:25 54 11/26/17 08:00 98.7 59 18 147/84 (105) 97 11/26/17 07:28 95 21 11/26/17 06:35 97.8 65 18 130/70 (90) 96 11/26/17 01:47 97.8 61 18 144/66 (92) 94 11/25/17 20:48 97.9 76 18 148/85 (106) 95 11/25/17 17:35 95 Nasal Cannula 2.00 11/25/17 16:00 98.6 78 18 126/78 (94) 95 11/25/17 12:00 98.9 77 18 133/68 (89) 96 I/O 11/25/17 11/25/17 11/25/17 11/26/17 11/26/17 11/26/17 07:00 15:00 23:00 07:00 15:00 23:00 Intake Total 980 ml 100 ml Output Total 300 ml 600 ml Balance -300 ml 980 ml -600 ml 100 ml Intake Oral 980 ml IV Total 100 ml Output Urine Total 300 ml 600 ml # Voids 3 # Bowel Movements 1 Result Diagram: 11/26/17 0553 11/26/17 0553 Imaging Last Impressions Chest X-Ray 11/23/17 0000 Signed Impressions: Service Date/Time: Thursday, November 23, 2017 19:55 - CONCLUSION: 1. No active disease. No effusion or pneumothorax. Isael Tian MD Objective Remarks GENERAL: Middle-aged male in no acute distress. HEENT: PERRLA, EOMI. No scleral icterus or conjunctival pallor. No lid lag or facial droop. CARDIOVASCULAR: Regular rate and rhythm. No obvious murmurs to auscultation. No chest tenderness to palpation. RESPIRATORY: No wheezing appreciated. Clear to auscultation. GASTROINTESTINAL: Abdomen distended but soft, non-tender, nondistended. BS normal. MUSCULOSKELETAL: Extremities with trace lower extremity edema. No obvious deformities. NEUROLOGICAL: Awake, alert and oriented x4. No focal neurologic deficits. Moving both upper and lower extremities spontaneously. Procedures none A/P Problem List: (1) SIRS (systemic inflammatory response syndrome) ICD Code: R65.10 - Systemic inflammatory response syndrome (SIRS) of non- infectious origin without acute organ dysfunction (2) HIV (human immunodeficiency virus infection) ICD Code: B20 - Human immunodeficiency virus [HIV] disease (3) Dehydration ICD Code: E86.0 - Dehydration (4) Hypokalemia ICD Code: E87.6 - Hypokalemia (5) Depression ICD Code: F32.9 - Major depressive disorder, single episode, unspecified (6) IVDU (intravenous drug user) ICD Code: F19.90 - Other psychoactive substance use, unspecified, uncomplicated Status: Acute Assessment and Plan SIRS Likely Acute Viral Syndrome, however monitor closely in light of h/o HIV and IVDU. Temp 100.5, HR 106, no obvious source. CXR w/ no acute findings. U/a unremarkable. S/p Rocephin/Zithro in ER. Concern for possible Endocarditis in light of IVDU history. Has a history of prior endocarditis. - Unremarkable Echo and blood cultures negative to date for 2 days. Consult ID as needed. - will discontinue IV antibiotics and monitor. HIV Last CD4 296 on 07/16/17. Reports being off HAART regimen for the past 5 months. - outpt follow-up. Hypokalemia Resolved with repletion. - monitor as needed. Depression Reports depression, however denies suicidal ideation. Consulted psych. - outpt follow-up. Mild pancytopenia likely secondary to viral infection. Monitor IVDU Cocaine/Heroin, admits to ongoing use, last use day prior to arrival. - cessation instruction. - Discharged to [facility] in [facility] DVT Prophylaxis: SCD/Teds Discharge Planning Discharge to [facility] in the morning Grover Suarez MD Nov 26, 2017 10:15
--- NOTE | 2017-11-26 11:13 | HHI.DS ---
Discharge Summary Admission Date Nov 24, 2017 at 00:45 Discharge Date: Nov 26, 2017 Admitting Diagnosis URI; IVDU (1) SIRS (systemic inflammatory response syndrome) ICD Code: R65.10 - Systemic inflammatory response syndrome (SIRS) of non- infectious origin without acute organ dysfunction Diagnosis: Principal (2) HIV (human immunodeficiency virus infection) ICD Code: B20 - Human immunodeficiency virus [HIV] disease Diagnosis: Principal (3) Dehydration ICD Code: E86.0 - Dehydration Diagnosis: Principal (4) Hypokalemia ICD Code: E87.6 - Hypokalemia Diagnosis: Principal (5) Depression ICD Code: F32.9 - Major depressive disorder, single episode, unspecified Diagnosis: Principal (6) IVDU (intravenous drug user) ICD Code: F19.90 - Other psychoactive substance use, unspecified, uncomplicated Diagnosis: Principal Status: Acute Procedures none Brief History - From Admission This is a 47-year-old male with PMH of Anxiety, Depression, Bipolar Disorder, Hepatitis C, HIV (CD4 296 on 07/16/17), Tobacco Abuse and IVDU w/ Cocaine/Heroin who was sent to the ER from [facility] for evaluation of cough and fever. Symptoms ongoing for approx 2 days. Denies sick contacts, no SOB or chest pain. Admits to ongoing IVDU, last use yesterday. On arrival, BP 141/72 , HR 106, O2 sat 96% on 2L NC, Temp 100.5. CBC essentially unremarkable. K+ 3.4. CXR with no acute findings. S/p Rocephin/Zithro in ER. Of note, pt reports depression but denies suicidal ideation. CBC/BMP: 11/26/17 0553 11/26/17 0553 Significant Findings Laboratory Tests Test 11/23/17 22:50 11/24/17 09:30 11/25/17 08:25 11/26/17 01:40 Red Blood Count 4.17 MIL/MM3 (4.50-5.90) 4.05 MIL/MM3 (4.50-5.90) Hematocrit 36.8 % (39.0-51.0) 36.3 % (39.0-51.0) Monocytes (%) (Auto) 14.3 % (0.0-8.0) 11.6 % (0.0-8.0) Albumin 3.3 GM/DL (3.4-5.0) 2.7 GM/DL (3.4-5.0) Alkaline Phosphatase 44 U/L (45-117) 37 U/L (45-117) Potassium Level 3.4 MEQ/L (3.5-5.1) Estimat Glomerular Filtration Rate 74 ML/MIN (>89) Lactic Acid Level 2.5 mmol/L (0.4-2.0) Urine Mucus FEW /lpf (OCC) White Blood Count 3.4 TH/MM3 (4.0-11.0) Hemoglobin 12.7 GM/DL (13.0-17.0) Platelet Count 136 TH/MM3 (150-450) Eosinophils (%) (Auto) 9.0 % (0.0-4.0) Lymphocytes # (Auto) 0.7 TH/MM3 (1.0-4.8) Calcium Level 8.0 MG/DL (8.5-10.1) Chloride Level 110 MEQ/L (98-107) Vancomycin Level Trough 12.9 MCG/ML (5.0-10.0) Test 11/26/17 05:53 White Blood Count 2.7 TH/MM3 (4.0-11.0) Red Blood Count 3.78 MIL/MM3 (4.50-5.90) Hemoglobin 11.8 GM/DL (13.0-17.0) Hematocrit 33.8 % (39.0-51.0) Platelet Count 119 TH/MM3 (150-450) Calcium Level 7.9 MG/DL (8.5-10.1) Chloride Level 111 MEQ/L (98-107) Imaging Last Impressions Chest X-Ray 11/23/17 0000 Signed Impressions: Service Date/Time: Thursday, November 23, 2017 19:55 - CONCLUSION: 1. No active disease. No effusion or pneumothorax. Isael Tian MD PE at Discharge GENERAL: Middle-aged male in no acute distress. HEENT: PERRLA, EOMI. No scleral icterus or conjunctival pallor. No lid lag or facial droop. CARDIOVASCULAR: Regular rate and rhythm. No obvious murmurs to auscultation. No chest tenderness to palpation. RESPIRATORY: No wheezing appreciated. Clear to auscultation. GASTROINTESTINAL: Abdomen distended but soft, non-tender, nondistended. BS normal. MUSCULOSKELETAL: Extremities with trace lower extremity edema. No obvious deformities. NEUROLOGICAL: Awake, alert and oriented x4. No focal neurologic deficits. Moving both upper and lower extremities spontaneously. Hospital Course SIRS Likely Acute Viral Syndrome, however monitor closely in light of h/o HIV and IVDU. Temp 100.5, HR 106, no obvious source. CXR w/ no acute findings. U/a unremarkable. S/p Rocephin/Zithro in ER. Concern for possible Endocarditis in light of IVDU history. Has a history of prior endocarditis. - Unremarkable Echo and blood cultures negative to date for 2 days. Consult ID as needed. - will discontinue IV antibiotics and monitor. HIV Last CD4 296 on 07/16/17. Reports being off HAART regimen for the past 5 months. - outpt follow-up. Hypokalemia Resolved with repletion. - monitor as needed. Depression Reports depression, however denies suicidal ideation. Consulted psych. - outpt follow-up. Mild pancytopenia likely secondary to viral infection. Monitor IVDU Cocaine/Heroin, admits to ongoing use, last use day prior to arrival. - cessation instruction. - Discharged to [facility] in [facility] DVT Prophylaxis: SCD/Teds Discharge Planning Discharge to [facility] Condition on Discharge: Stable Discharge Disposition: Discharge Home Discharge Time: > 30 minutes Discharge Instructions DIET: Follow Instructions for: As Tolerated, No Restrictions Activities you can perform: Regular-No Restrictions Activities to Avoid: Driving Follow up Referrals: Infectious Disease - 1 Week PCP Follow-up - 1 Week Medication Profile: No Active Prescriptions or Reported Meds Grover Suarez MD Nov 26, 2017 11:13
[2017-11-26 12:00] VITALS: BP 157/78; PULSE 81; RESP 18; TEMP 97.9; O2SAT 98
== END 2017-11-26 14:55 | disposition home or self-care (01) | DRG 975 ==
LOC: NEPD 19:17 → NEDA 11-24 00:45 → N05A 11-24 02:04
PROVIDERS: ADMIT Internal Medicine; ATTEND Internal Medicine
DX: A41.89 Other specified sepsis (principal); B20 Human immunodeficiency virus [HIV] disease; F11.20 Opioid dependence, uncomplicated; K74.60 Unspecified cirrhosis of liver; R65.20 Severe sepsis without septic shock; E86.0 Dehydration; E87.6 Hypokalemia; J06.9 Acute upper respiratory infection, unspecified; F31.9 Bipolar disorder, unspecified; F14.10 Cocaine abuse, uncomplicated; F41.9 Anxiety disorder, unspecified; Z59.0 Homelessness; Z72.0 Tobacco use; Z71.51 Drug abuse counseling and surveillance of drug abuser; Z79.899 Other long term (current) drug therapy; Z86.19 Personal history of other infectious and parasitic diseases; Z87.442 Personal history of urinary calculi
CPT/HCPCS: 71045; 80048; 80053; 80202; 81001; 83605; 83735; 85025; 85027; 85730; 87040; 87070; 87205; 93005; 93306; 96365; 96367; J0456; J0692; J0696; J3370; J7030; J7040; J7050

== ENCOUNTER 2018-01-08 08:11 | Emergency (ER) | payer MEDICAID ==
[~2018-01-08] VITALS: Ht 177.8 cm; Wt 113.5 kg
[2018-01-08 08:12] VITALS: BP 134/85; PULSE 94; RESP 18; TEMP 98.5; O2SAT 95
--- NOTE | 2018-01-08 09:16 | PD ---
HPI Chief Complaint: Psychiatric Symptoms Time Seen by Provider: 08:48 Travel History International Travel<30 days: No Contact w/Intl Traveler<30days: No Traveled to known affect area: No History of Present Illness HPI 47-year-old male presents to the emergency Department voluntarily for psych evaluation. History of bipolar disorder, schizoaffective disorder, PTSD. He reports feeling depressed for the past 5 days. He's had "thoughts about suicide." "Not yet" he remarks when asked if he has a plan to commit suicide. Has history of suicidal attempts by overdosing on Seroquel and multiple other attempts by overdosing on heroin. Denies homicidal ideation. Denies auditory or visual hallucinations. Says he's been sober for the past 2 months and denies illicit drug use or EtOH. Depression onset for unknown reason. No known relieving or aggravating factors. Has not taken any medications or tried any treatments to alleviate his symptoms. Symptoms are moderate to severe in severity. Denies other emergent medical complaints at this time. Allergies to Haldol. Primary care provider is [facility]. Does not have a psychiatrist. History of AIDS, hepatitis C, cirrhosis, COPD. PFSH Past Medical History Bipolar Disorder: Yes Depression: Yes Cancer: No Cardiovascular Problems: No Cirrhosis: Yes Diminished Hearing: No Endocrine: No Gastrointestinal Disorders: Yes (UMBILICAL HERNIA) Genitourinary: No Hepatitis: Yes (C /HIV) Immune Disorder: No Kidney Stones: Yes Musculoskeletal: No Neurologic: No Psychiatric: No Reproductive: No Respiratory: No Immunizations Current: Yes Past Surgical History Surgical History: No Previous Surgery Social History Alcohol Use: No Tobacco Use: Yes (11/20 PPD ) Substance Use: No (clean from IV drug use since october 20) Allergies-Medications (Allergen,Severity, Reaction): Coded Allergies: haloperidol (Verified Allergy, Severe, Swelling, 01/08/18) TONGUE SWELLING - Per pt. Reported Meds & Prescriptions Reported Meds & Active Scripts Active No Active Prescriptions or Reported Medications Review of Systems Except as stated in HPI: all other systems reviewed are Neg Physical Exam Narrative GENERAL: Well-nourished, well-developed male patient, in no acute distress SKIN: Warm and dry. HEAD: Atraumatic. Normocephalic. EYES: Pupils equal and round. ENT: Mucosa pink and moist. NECK: Supple. Trachea midline. CARDIOVASCULAR: Regular rate and rhythm. No murmur appreciated. RESPIRATORY: No accessory muscle use. Clear to auscultation. Breath sounds equal bilaterally. GASTROINTESTINAL: Abdomen soft, non-tender, nondistended. Hepatic and splenic margins not palpable. Bowel sounds are active 4 quadrants. MUSCULOSKELETAL: No obvious deformities. No clubbing. No cyanosis. No edema. NEUROLOGICAL: Awake and alert. Oriented 3. No obvious cranial nerve deficits. Motor grossly within normal limits. Normal speech. Moves all extremities. 5/5 strength to all extremities. PSYCHIATRIC: No delusional thought processes. No hallucinations. Data Data Last Documented VS Vital Signs Date Time Temp Pulse Resp B/P (MAP) Pulse Ox O2 Delivery O2 Flow Rate FiO2 01/08/18 08:12 98.5 94 18 134/85 (101) 95 Room Air Orders Orders Complete Blood Count With Diff (01/08/18 08:48) Comprehensive Metabolic Panel (01/08/18 08:48) Thyroid Stimulating Hormone (01/08/18 08:48) Psych Screen (01/08/18 08:48) Drug Screen, Random Urine (01/08/18 08:48) Alcohol (Ethanol) (01/08/18 08:48) Salicylates (Aspirin) (01/08/18 08:48) Tylenol (Acetaminophen) (01/08/18 08:48) Labs Laboratory Tests Test 01/08/18 09:00 White Blood Count 3.3 TH/MM3 Red Blood Count 4.83 MIL/MM3 Hemoglobin 15.2 GM/DL Hematocrit 41.3 % Mean Corpuscular Volume 85.5 FL Mean Corpuscular Hemoglobin 31.6 PG Mean Corpuscular Hemoglobin Concent 36.9 % Red Cell Distribution Width 13.8 % Platelet Count 90 TH/MM3 Mean Platelet Volume 8.9 FL Neutrophils (%) (Auto) 51.1 % Lymphocytes (%) (Auto) 26.6 % Monocytes (%) (Auto) 11.4 % Eosinophils (%) (Auto) 9.5 % Basophils (%) (Auto) 1.4 % Neutrophils # (Auto) 1.7 TH/MM3 Lymphocytes # (Auto) 0.9 TH/MM3 Monocytes # (Auto) 0.4 TH/MM3 Eosinophils # (Auto) 0.3 TH/MM3 Basophils # (Auto) 0.0 TH/MM3 CBC Comment AUTO DIFF Differential Comment AUTO DIFF CONFIRMED Platelet Estimate LOW Platelet Morphology Comment NORMAL Blood Urea Nitrogen 18 MG/DL Creatinine 0.79 MG/DL Random Glucose 96 MG/DL Total Protein 8.8 GM/DL Albumin 3.7 GM/DL Calcium Level 9.1 MG/DL Alkaline Phosphatase 53 U/L Aspartate Amino Transf (AST/SGOT) 81 U/L Alanine Aminotransferase (ALT/SGPT) 66 U/L Total Bilirubin 0.5 MG/DL Sodium Level 137 MEQ/L Potassium Level 3.8 MEQ/L Chloride Level 105 MEQ/L Carbon Dioxide Level 24.7 MEQ/L Anion Gap 7 MEQ/L Estimat Glomerular Filtration Rate 105 ML/MIN Thyroid Stimulating Hormone 3rd Gen 1.990 uIU/ML Salicylates Level 2.1 MG/DL Urine Opiates Screen NEG Acetaminophen Level LESS THAN 2.0 MCG/ML Urine Barbiturates Screen NEG Urine Amphetamines Screen NEG Urine Benzodiazepines Screen NEG Urine Cocaine Screen NEG Urine Cannabinoids Screen NEG Ethyl Alcohol Level LESS THAN 3 MG/DL MDM Medical Decision Making Medical Screen Exam Complete: Yes Emergency Medical Condition: Yes Medical Record Reviewed: Yes Differential Diagnosis Medical clearance for psychological evaluation, depression, bipolar, schizoaffective disorder Narrative Course 47-year-old male presents voluntarily. Physical examination and vital signs are essentially unremarkable. Patient has no medical complaints to report. Psych screen has been ordered. If the laboratory results are unremarkable, the patient will be medically cleared for psychiatric evaluation and disposition. 1024: He has history of cirrhosis. Platelets 90. Patient denies hematuria, hematochezia, hematemesis, hemoptysis. Instructed patient to follow up with primary care provider in regards to low platelets and he verbalized understanding and agreement. Diagnosis Primary Impression: Encounter for psychological evaluation Additional Impression: Thrombocytopenia Scripts No Active Prescriptions or Reported Meds Condition: Stable Silvana Rome Jan 08, 2018 09:16
[2018-01-08 09:22] LABS: AUTOMATED NEUTROPHIL # 1.7 TH/MM3 (1.8-7.7); BASOPHIL % 1.4 % (0.0-2.0); EOSINOPHIL # 0.3 TH/MM3 (0-0.4); EOSINOPHIL % 9.5 % (0.0-4.0); HEMATOCRIT 41.3 % (39.0-51.0); HEMOGLOBIN 15.2 GM/DL (13.0-17.0); LYMPH % 26.6 % (9.0-44.0); LYMPHOCYTE # 0.9 TH/MM3 (1.0-4.8); MEAN CELL VOLUME 85.5 FL (80.0-100.0); MEAN CORPUSCULAR HEMOGLOBIN 31.6 PG (27.0-34.0); MEAN PLATELET VOLUME 8.9 FL (7.0-11.0); MONO % 11.4 % (0.0-8.0); MONOCYTE # 0.4 TH/MM3 (0-0.9); NEUT % 51.1 % (16.0-70.0); PLATELET COUNT 90 TH/MM3 (150-450); RED BLOOD COUNT 4.83 MIL/MM3 (4.50-5.90); RED CELL DISTRIBUTION WIDTH 13.8 % (11.6-17.2); WHITE BLOOD COUNT 3.3 TH/MM3 (4.0-11.0)
[2018-01-08 09:23] LABS: MEAN CORPUSCULAR HGB CONC 36.9 % (32.0-36.0)
[2018-01-08 09:37] LABS: ALT (GPT) 66 U/L (12-78)
[2018-01-08 09:48] LABS: ALBUMIN 3.7 GM/DL (3.4-5.0); ALKALINE PHOSPHATASE 53 U/L (45-117); AST (GOT) 81 U/L (15-37); BICARBONATE 24.7 MEQ/L (21.0-32.0); BLOOD UREA NITROGEN 18 MG/DL (7-18); CALCIUM 9.1 MG/DL (8.5-10.1); CHLORIDE 105 MEQ/L (98-107); CREATININE 0.79 MG/DL (0.60-1.30); GLOMERULAR FILTRATION RATE 105 ML/MIN (>89); GLUCOSE,RANDOM 96 MG/DL (74-106); SODIUM (NA) 137 MEQ/L (136-145); TOTAL BILIRUBIN ADULT 0.5 MG/DL (0.2-1.0); TOTAL PROTEIN 8.8 GM/DL (6.4-8.2)
[2018-01-08 10:12] LABS: ACETAMINOPHEN LESS THAN 2.0 MCG/ML (10.0-30.0)
[2018-01-08 14:00] VITALS: BP 112/59; PULSE 62; RESP 20; O2SAT 96
[2018-01-08 18:15] VITALS: BP 122/56; PULSE 62; RESP 20
[2018-01-09 02:23] VITALS: BP 114/65; PULSE 67; RESP 18; O2SAT 96
[2018-01-09 06:54] VITALS: BP 131/58; PULSE 68; RESP 17; O2SAT 99
--- NOTE | 2018-01-09 09:28 | PD ---
Physical Exam Time Seen by Provider: 09:22 CONNOR Jackson has evaluated the patient and cleared the patient for discharge. Patient has a follow-up appointment scheduled at [facility] tomorrow. Data Data Last Documented VS Vital Signs Date Time Temp Pulse Resp B/P (MAP) Pulse Ox O2 Delivery O2 Flow Rate FiO2 01/09/18 06:54 68 17 131/58 (82) 99 Room Air 01/08/18 08:12 98.5 Orders Orders Complete Blood Count With Diff (01/08/18 08:48) Comprehensive Metabolic Panel (01/08/18 08:48) Thyroid Stimulating Hormone (01/08/18 08:48) Psych Screen (01/08/18 08:48) Drug Screen, Random Urine (01/08/18 08:48) Alcohol (Ethanol) (01/08/18 08:48) Salicylates (Aspirin) (01/08/18 08:48) Tylenol (Acetaminophen) (01/08/18 08:48) Diet Regular Basic (01/08/18 Dinner) Diet Regular Basic (01/09/18 Breakfast) Labs Laboratory Tests Test 01/08/18 09:00 White Blood Count 3.3 TH/MM3 Red Blood Count 4.83 MIL/MM3 Hemoglobin 15.2 GM/DL Hematocrit 41.3 % Mean Corpuscular Volume 85.5 FL Mean Corpuscular Hemoglobin 31.6 PG Mean Corpuscular Hemoglobin Concent 36.9 % Red Cell Distribution Width 13.8 % Platelet Count 90 TH/MM3 Mean Platelet Volume 8.9 FL Neutrophils (%) (Auto) 51.1 % Lymphocytes (%) (Auto) 26.6 % Monocytes (%) (Auto) 11.4 % Eosinophils (%) (Auto) 9.5 % Basophils (%) (Auto) 1.4 % Neutrophils # (Auto) 1.7 TH/MM3 Lymphocytes # (Auto) 0.9 TH/MM3 Monocytes # (Auto) 0.4 TH/MM3 Eosinophils # (Auto) 0.3 TH/MM3 Basophils # (Auto) 0.0 TH/MM3 CBC Comment AUTO DIFF Differential Comment AUTO DIFF CONFIRMED Platelet Estimate LOW Platelet Morphology Comment NORMAL Blood Urea Nitrogen 18 MG/DL Creatinine 0.79 MG/DL Random Glucose 96 MG/DL Total Protein 8.8 GM/DL Albumin 3.7 GM/DL Calcium Level 9.1 MG/DL Alkaline Phosphatase 53 U/L Aspartate Amino Transf (AST/SGOT) 81 U/L Alanine Aminotransferase (ALT/SGPT) 66 U/L Total Bilirubin 0.5 MG/DL Sodium Level 137 MEQ/L Potassium Level 3.8 MEQ/L Chloride Level 105 MEQ/L Carbon Dioxide Level 24.7 MEQ/L Anion Gap 7 MEQ/L Estimat Glomerular Filtration Rate 105 ML/MIN Thyroid Stimulating Hormone 3rd Gen 1.990 uIU/ML Salicylates Level 2.1 MG/DL Urine Opiates Screen NEG Acetaminophen Level LESS THAN 2.0 MCG/ML Urine Barbiturates Screen NEG Urine Amphetamines Screen NEG Urine Benzodiazepines Screen NEG Urine Cocaine Screen NEG Urine Cannabinoids Screen NEG Ethyl Alcohol Level LESS THAN 3 MG/DL MDM Supervised Visit with NANCY: No Narrative Course CONNOR Doll has evaluated the patient and cleared the patient for discharge. Patient has a follow-up appointment scheduled at [facility] this morning. Patient contracts safety. Denies suicidal or homicidal ideations. Patient will be provided community resource packet to [facility] for follow-up. Has friends and family for support. Patient was medically cleared by alternate provider prior to psych screening. Patient has been evaluated by psychiatry and and is now cleared for discharge. Diagnosis Primary Impression: Bipolar 1 disorder, depressed Additional Impression: Thrombocytopenia Referrals: [facility] (Out patient) [facility] Primary Care Physician Psychiatrist Cady [facility] Patient Instructions: Bipolar Disorder (ED), General Instructions Additional Instruction: Contract safety to your self and others Follow-up with psychiatry Follow-up with primary care provider Follow-up with Thiago Silva Follow-up with primary care provider in regards to your low platelet count Return to the emergency department immediately with worsening of symptoms Med/Other Pt SpecificInfo: No Change to Meds, No Meds Exist/No RX given Scripts No Active Prescriptions or Reported Meds Disposition: DISCHARGE HOME Condition: Stable Silvana Rome Jan 09, 2018 09:28
[2018-01-09 10:14] VITALS: BP 154/90; PULSE 81; RESP 17; O2SAT 96
--- NOTE | 2018-01-09 11:19 | PD ---
History of Present Illness Chief Complaint: Bipolar 1 depressed Time Seen by Provider: 08:20 Travel History International Travel<30 Days: No Contact w/Intl Traveler<30days: No Known affected area: No Legal Status Legal Status: Voluntary History of Present Illness: Patient is a 47 year old , single male who presents voluntarily for complaints of depression and "thoughts of suicide" without a plan. Patient is known to this facility and has been placed at a sober living facility, where he still resides. Patient reports that he recently had a manic episode and now is depressed. On several occasions the patient has been referred for outpatient treatment at [facility] and provided with prescriptions from this facility however, by his own admission he failed to have the prescriptions filled or follow-up. [facility] Past Medical History Narrative Medical Reviewed electronic medical record and labs. Bipolar Disorder: Yes Depression: Yes Cancer: No Cardiovascular Problems: No Cirrhosis: Yes Diminished Hearing: No Endocrine: No Gastrointestinal Disorders: Yes (UMBILICAL HERNIA) Genitourinary: No Hepatitis: Yes (C /HIV) Immune Disorder: No Kidney Stones: Yes Musculoskeletal: No Neurologic: No Psychiatric: No Reproductive: No Respiratory: No Immunizations Current: Yes Past Surgical History Surgical History: No Previous Surgery Psychiatric History Psychiatric History Mr. Morgan has been treated inpatient at this facility. He reports failing to establish the outpatient care which he has been advised to do with each visit. He reports a failed attempt at suicide by OD. Hx Psychiatric Treatment: DEPRESSION, BIPOLOR BUT NOT TAKING MEDS FOR MTHS GEODON, LITHIUM History of Inpatient Treatment: Yes Social History Patient remains at a sober living facility and has remained sober. Toxicology screen is negative. Hx Alcohol Use: No Hx Tobacco Use: Yes (1/2 PPD ) Hx Substance Use: No (HERION, CRACK DEC ) Substance Use Type: Alcohol, Crack, Marijuana, Cocaine, Synth Opiates-Pain Pills Hx of Substance Use Treatment: Yes Family Psychiatric History Reports a sister in the area, but advises that "she uses" so he "can't be around her". He believes that she suffers from mental illness as well. Denies any deaths by suicide in his family. Allergies-Medications (Allergen,Severity, Reaction): Coded Allergies: haloperidol (Verified Allergy, Severe, Swelling, 01/08/18) TONGUE SWELLING - Per pt. Reported Meds & Prescriptions Reported Meds & Active Scripts Active No Active Prescriptions or Reported Medications Review of Systems Other Patient medically cleared. Mental Status Examination Appearance: Appropriate Consciousness: Alert Orientation: x4 Motor Activity: Normal gait Speech: Unremarkable Language: Adequate Fund of Knowledge: Adequate Attention and Concentration: Adequate Memory: Unremarkable Mood: Appropriate Affect: Euthymic Thought Process & Associations: Intact Thought Content: Appropriate Hallucination Type: None Delusion Type: None Suicidal Ideation: Yes (Patient reports "suicidal thoughts") Suicidal Plan: No ("I have not thought about it.") Suicidal Intention: No Homicidal Ideation: No Homicidal Plan: No Homicidal Intention: No Insight: Adequate Judgment: Adequate Mental Status Exam Remarks Reviewed electronic medical record and spoke with staff regarding patient. Patient was examined in his room in [facility] with esteban Lott present. Patient is neatly ground, alert and oriented 4, and appropriate in his interactions during interview. He reports that he recently had a manic episode and now feels depressed. He states that he has "thoughts of suicide" but no plan. He reports that he slept well last night but has had a bit of a decreased appetite. He denies HI or audiovisual hallucinations, there is no indication of delusions present. Discussed the need to follow-up outpatient, as well as the importance of compliance with medications. Patient is future oriented as he requested a work note upon his discharge. He states understanding of the care plan to follow-up outpatient Thiago braxton. An appointment was made for him at 7 AM tomorrow. Patient states understanding and that he will comply. [facility] Medical Decision Making Assessment/Plan Mr Morgan is in the depressive phase of his Bipolar DO. He is future oriented and although he expresses "thoughts of suicide" there is no plan or intention present. Patient resides at a sober living facility where he is monitored, and holds down a job. Mr Morgan would not benefit from inpatient admission at this time. He needs to establish and remain compliant with outpatient care. Patient has a follow-up appointment with Thiago braxton tomorrow at 7 AM. Orders Orders Diet Regular Basic (01/08/18 Dinner) Diet Regular Basic (01/09/18 Breakfast) Ed Discharge Order (01/09/18 09:28) Results Vital Signs Date Time Temp Pulse Resp B/P (MAP) Pulse Ox O2 Delivery O2 Flow Rate FiO2 01/09/18 10:14 81 17 154/90 (111) 96 Room Air 01/09/18 06:54 68 17 131/58 (82) 99 Room Air 01/09/18 02:23 67 18 114/65 (81) 96 Room Air 01/08/18 18:15 62 20 122/56 (78) 01/08/18 14:00 62 20 112/59 (76) 96 Diagnosis Primary Impression: Bipolar 1 disorder, depressed Additional Impression: Thrombocytopenia Psychiatrically Cleared: Yes Referrals: [facility] (Out patient) 1 day Location and appointment date and time provided. [facility] Primary Care Physician Psychiatrist Cayd BRA[facility] Departure Forms: Work Release, Enter return to work date: Jan 10, 2018 Tests/Procedures Patient Instructions: General Instructions, Wound Infection (ED), Bipolar Disorder (ED), Thrombocytopenia (ED) Additional Instructions: Contract safety to your self and others Follow-up with psychiatry Follow-up with primary care provider Follow-up with Thiago Silva Follow-up with primary care provider in regards to your low platelet count Return to the emergency department immediately with worsening of symptoms Prescriptions No Active Prescriptions or Reported Meds Disposition: 01 DISCHARGE HOME Condition: Stable Problem Qualifiers Ninfa Alexander Jan 09, 2018 11:19
== END 2018-01-09 11:38 | disposition home or self-care (01) ==
LOC: NEPD 08:11 → NEPJ 01-09 11:38
DX: F31.9 Bipolar disorder, unspecified (principal); D69.6 Thrombocytopenia, unspecified; F17.200 Nicotine dependence, unspecified, uncomplicated
CPT/HCPCS: 80053; 80307; 84443; 85025; 99283

== ENCOUNTER 2018-02-04 09:29 | Emergency (ER) | payer MEDICAID ==
[~2018-02-04] VITALS: Ht 177.8 cm; Wt 110.0 kg
[2018-02-04 09:42] VITALS: BP 151/88; PULSE 85; RESP 19; TEMP 97.5; O2SAT 95
--- NOTE | 2018-02-04 11:07 | PD ---
HPI Chief Complaint: Cold / Flu Symptoms Time Seen by Provider: 11:06 Travel History International Travel<30 days: No Contact w/Intl Traveler<30days: No Traveled to known affect area: No History of Present Illness HPI 47-year-old male with history of HIV who is a smoker, presents emergency department with several day history of increasing congestion cough and posttussive emesis. Patient states headache but denies sinus congestion. Patient is hoarse but denies reflux. Patient denies fever but has had chills. Patient has history of bronchitis requiring admission several months ago. He is used inhalers and steroids in the past. He does not have a nebulizer or inhaler at home currently. Patient denies abdominal pain, or diarrhea. Patient 's headache pain is 7 out of 10. It is worse with coughing. He denies ear pain or significant sore throat. Patient is allergic to haloperidol. Patient states he continues to smoke at least a pack a day. PFSH Past Medical History Bipolar Disorder: Yes Depression: Yes Cancer: No Cardiovascular Problems: No Cirrhosis: Yes Diminished Hearing: No Endocrine: No Gastrointestinal Disorders: Yes (UMBILICAL HERNIA) Genitourinary: No Hepatitis: Yes (C /HIV) Immune Disorder: No Kidney Stones: Yes Musculoskeletal: No Neurologic: No Psychiatric: No Reproductive: No Respiratory: No Immunizations Current: Yes Social History Alcohol Use: No Tobacco Use: Yes (11/20 PPD ) Substance Use: No (HERION, CRACK DEC ) Allergies-Medications (Allergen,Severity, Reaction): Coded Allergies: haloperidol (Verified Allergy, Severe, Swelling, 02/04/18) TONGUE SWELLING - Per pt. Reported Meds & Prescriptions Reported Meds & Active Scripts Active Prednisone 20 Mg Tab 20 Mg PO DAILY 7 Days Ventolin Hfa 18 GM Inh (Albuterol Sulfate) 90 Mcg/Act Aer 2 Puff INH Q4-6H PRN Azithromycin 500 Mg Tab 500 Mg PO DAILY Review of Systems Except as stated in HPI: all other systems reviewed are Neg General / Constitutional: Positive: Chills, No: Fever Eyes: No: Visual changes HENT: Positive: Headaches, Rhinitis, Rhinorrhea, Congestion, No: Vertigo, Lightheadedness, Sore Throat, Nosebleed, Neck Stiffness, Neck Pain, Dental Difficulties, Earache Cardiovascular: No: Chest Pain or Discomfort Respiratory: Positive: Cough, Shortness of Breath, Wheezing, No: Sneezing, Orthopnea, Hemoptysis, Stridor, Night Sweats, Pleuritic Pain Gastrointestinal: Positive: Vomiting (Posttussive), No: Nausea, Diarrhea, Abdominal Pain Genitourinary: No: Dysuria Musculoskeletal: No: Pain Skin: No Rash Neurologic: No: Weakness Psychiatric: No: Depression Endocrine: No: Polydipsia Hematologic/Lymphatic: No: Easy Bruising Physical Exam Narrative GENERAL: Patient appears ill but not septic. SKIN: Warm and dry. Normal color. Normal turgor. No rash. HEAD: Atraumatic. Normocephalic. No sinus tenderness to palpation or percussion EYES: Pupils equal and round. No scleral icterus. No injection or drainage. ENT: No nasal bleeding or discharge. Mucous membranes pink and moist. TMs dull bilaterally with no injection. Posterior pharynx is generalized swelling without significant erythema. Cobblestoning is noted. No obvious postnasal drip. Airways patent. NECK: Trachea midline. Supple and nontender without lymphadenopathy. CARDIOVASCULAR: Regular rate and rhythm. RESPIRATORY: No accessory muscle use. Diffuse wheezes throughout to auscultation. No rhonchi or rales appreciated. Breath sounds equal bilaterally. GASTROINTESTINAL: Abdomen soft, non-tender, nondistended. Hepatic and splenic margins not palpable. MUSCULOSKELETAL: Extremities without clubbing, cyanosis, or edema. No obvious deformities. NEUROLOGICAL: Awake and alert. No obvious cranial nerve deficits. Motor grossly within normal limits. Five out of 5 muscle strength in the arms and legs. Normal speech. PSYCHIATRIC: Appropriate mood and affect; insight and judgment normal. Data Data Last Documented VS Vital Signs Date Time Temp Pulse Resp B/P (MAP) Pulse Ox O2 Delivery O2 Flow Rate FiO2 02/04/18 12:08 95 Room Air 02/04/18 09:42 97.5 85 19 151/88 (109) Orders Orders Chest, Single Ap (02/04/18 11:11) Ecg Monitoring (02/04/18 11:11) Iv Access Insert/Monitor (02/04/18 11:11) Oximetry (02/04/18 11:11) Oxygen Administration (02/04/18 11:11) Prednisone (Deltasone) (02/04/18 11:15) Albuterol-Ipratropium Neb (Duoneb Neb) (02/04/18 11:15) Sodium Chloride 0.9% Flush (Ns Flush) (02/04/18 11:15) Ceftriaxone Inj (Rocephin Inj) (02/04/18 11:15) Azithromycin (Zithromax) (02/04/18 11:15) Complete Blood Count With Diff (02/04/18 11:23) Comprehensive Metabolic Panel (02/04/18 11:23) Prothrombin Time / Inr (Pt) (02/04/18 11:23) Act Partial Throm Time (Ptt) (02/04/18 11:23) Urinalysis - C+S If Indicated (02/04/18 11:23) Iv Access Insert/Monitor (02/04/18 11:23) Sodium Chlor 0.9% 1000 Ml Inj (Ns 1000 M (02/04/18 11:23) Sodium Chloride 0.9% Flush (Ns Flush) (02/04/18 11:30) Lidocaine 1% Inj (Xylocaine 1% Inj) (02/04/18 11:30) Lipase (02/04/18 11:55) Labs Laboratory Tests Test 02/04/18 11:40 02/04/18 11:55 Urine Color YELLOW Urine Turbidity CLEAR Urine pH 6.5 Urine Specific [place] 1.024 Urine Protein 100 mg/dL Urine Glucose (UA) NEG mg/dL Urine Ketones NEG mg/dL Urine Occult Blood TRACE Urine Nitrite NEG Urine Bilirubin NEG Urine Urobilinogen 2.0 MG/DL Urine Leukocyte Esterase NEG Urine RBC 2 /hpf Urine WBC 1 /hpf Urine Mucus FEW /lpf Microscopic Urinalysis Comment CULT NOT INDICATED White Blood Count 5.3 TH/MM3 Red Blood Count 4.80 MIL/MM3 Hemoglobin 14.4 GM/DL Hematocrit 41.7 % Mean Corpuscular Volume 86.7 FL Mean Corpuscular Hemoglobin 30.0 PG Mean Corpuscular Hemoglobin Concent 34.6 % Red Cell Distribution Width 14.0 % Platelet Count 90 TH/MM3 Mean Platelet Volume 9.1 FL Neutrophils (%) (Auto) 65.8 % Lymphocytes (%) (Auto) 17.7 % Monocytes (%) (Auto) 9.8 % Eosinophils (%) (Auto) 6.1 % Basophils (%) (Auto) 0.6 % Neutrophils # (Auto) 3.5 TH/MM3 Lymphocytes # (Auto) 0.9 TH/MM3 Monocytes # (Auto) 0.5 TH/MM3 Eosinophils # (Auto) 0.3 TH/MM3 Basophils # (Auto) 0.0 TH/MM3 CBC Comment AUTO DIFF Differential Comment AUTO DIFF CONFIRMED Platelet Estimate LOW Platelet Morphology Comment NORMAL Ovalocytes 1+ Prothrombin Time 9.9 SEC Prothromb Time International Ratio 1.0 RATIO Activated Partial Thromboplast Time 27.9 SEC Blood Urea Nitrogen 12 MG/DL Creatinine 0.88 MG/DL Random Glucose 88 MG/DL Total Protein 8.4 GM/DL Albumin 3.5 GM/DL Calcium Level 8.5 MG/DL Alkaline Phosphatase 51 U/L Aspartate Amino Transf (AST/SGOT) 65 U/L Alanine Aminotransferase (ALT/SGPT) 53 U/L Total Bilirubin 0.4 MG/DL Sodium Level 140 MEQ/L Potassium Level 3.7 MEQ/L Chloride Level 108 MEQ/L Carbon Dioxide Level 24.9 MEQ/L Anion Gap 7 MEQ/L Estimat Glomerular Filtration Rate 92 ML/MIN Lipase 210 U/L MDM Medical Decision Making Medical Screen Exam Complete: Yes Emergency Medical Condition: Yes Medical Record Reviewed: Yes Differential Diagnosis Upper respiratory infection. Bronchitis. Wheezing. Pneumonia. History of HIV. Narrative Course Patient appears medically stable at time of exam. Chest x-ray is ordered. Patient is given 40 mg prednisone p.o. Patient is given 1000 mg Rocephin IM. Patient is given azithromycin 500 mg p.o. Patient is given DuoNeb 3. Labs ordered including CBC, CMP, coagulation studies, lipase, and urinalysis. Urinalysis is unremarkable. CBC is unremarkable except for platelet count of 90. Coagulation studies are normal. CMP is unremarkable. Urinalysis is unremarkable. Patient continued on azithromycin 5 mg daily for 3 days. Patient continued on prednisone 20 mg daily for 7 days. Patient given albuterol metered-dose inhaler 2 puffs every 4-6 hours as needed. Patient is encouraged to quit smoking as soon as possible. Patient to follow-up with [facility]. Diagnosis Primary Impression: Acute wheezy bronchitis Referrals: [facility] Patient Instructions: General Instructions, How to Stop Smoking (DC), Wheezing (ED) Additional Instructions: Patient continued on azithromycin 5 mg daily for 3 days. Patient continued on prednisone 20 mg daily for 7 days. Patient given albuterol metered-dose inhaler 2 puffs every 4-6 hours as needed. Patient is encouraged to quit smoking as soon as possible. [facility] Med/Other Pt SpecificInfo: Prescription(s) given Scripts Prednisone (Prednisone) 20 Mg Tab 20 MG PO DAILY for 7 Days, #7 TAB 0 Refills Prov: Irasema Mcfarland DO 02/04/18 Albuterol 18 GM Inh (Ventolin Hfa 18 GM Inh) 90 Mcg/Act Aer 2 PUFF INH Q4-6H Y for SHORTNESS OF BREATH, #1 INHALER 0 Refills Prov: Irasema Mcfarland DO 02/04/18 Azithromycin (Azithromycin) 500 Mg Tab 500 MG PO DAILY for Infection, #3 TAB 0 Refills Prov: Irasema Mcfarland DO 02/04/18 Disposition: 01 DISCHARGE HOME Condition: Stable Thomas Lam Feb 04, 2018 11:07
[2018-02-04] MEDS ORDERED: RESP: ALBUTEROL 2.5 MG/IPRATROPIUM 0.5 MG NEB (SCH) INH (11:15)
[2018-02-04] MEDS ORDERED: AZITHROMYCIN 250 MG TAB PO ONE (11:15)
[2018-02-04] MEDS ORDERED: SODIUM CHLORIDE 0.9% FLUSH 10 ML FLUSH IVF PRN (11:15)
[2018-02-04] MEDS ORDERED: LIDOCAINE HCL 1% 50 ML VIAL INFIL ONE (11:15)
[2018-02-04] MEDS ORDERED: predniSONE 20 MG TAB PO ONE (11:15)
[2018-02-04] MEDS ORDERED: SODIUM CHLOR 0.9% 1000 ML INJ 1,000 ML IV SCH (11:23)
--- NOTE | 2018-02-04 11:29 | PD ---
Physical Exam Narrative I, Dr. Mcfarland, have reviewed the advance practice practitioner's documentation and am in agreement, met with the patient face to face, made the diagnosis, and the medical decision making was done by me. *My assessment and Findings: Pneumonia vs. bronchitis vs. URI vs. dehydration vs. electrolyte abnormality 47yo M with PMH of HIV CD 4 count 18 not on any medication, COPD, cirrhosis, Hep C here with c/o not feeling well and coughing. Also with nasal congestion, nausea and vomiting. Denies any fever, chest pain, sob, abdominal pain, focal weakness or numbness. Pt is a cig smoker. He also has an umbilical hernia that has been there for years but reducible and soft. No abdominal tenderness to palpation. Mild end expiratory wheezing on left lung. Labs reviewed, no leukocytosis. Thrombocytopenic which is at baseline compare to last lab. AST elevated but less than last time. Lipase normal. CXR negative. Pt given duonebs, prednisone, ceftriaxone, azithromycin with improvement of symptoms. Return precautions given. Data Data Last Documented VS Vital Signs Date Time Temp Pulse Resp B/P (MAP) Pulse Ox O2 Delivery O2 Flow Rate FiO2 02/04/18 12:08 95 Room Air 02/04/18 09:42 97.5 85 19 151/88 (109) Orders Orders Chest, Single Ap (02/04/18 11:11) Ecg Monitoring (02/04/18 11:11) Iv Access Insert/Monitor (02/04/18 11:11) Oximetry (02/04/18 11:11) Oxygen Administration (02/04/18 11:11) Prednisone (Deltasone) (02/04/18 11:15) Albuterol-Ipratropium Neb (Duoneb Neb) (02/04/18 11:15) Sodium Chloride 0.9% Flush (Ns Flush) (02/04/18 11:15) Ceftriaxone Inj (Rocephin Inj) (02/04/18 11:15) Azithromycin (Zithromax) (02/04/18 11:15) Complete Blood Count With Diff (02/04/18 11:23) Comprehensive Metabolic Panel (02/04/18 11:23) Prothrombin Time / Inr (Pt) (02/04/18 11:23) Act Partial Throm Time (Ptt) (02/04/18 11:23) Urinalysis - C+S If Indicated (02/04/18 11:23) Iv Access Insert/Monitor (02/04/18 11:23) Sodium Chlor 0.9% 1000 Ml Inj (Ns 1000 M (02/04/18 11:23) Sodium Chloride 0.9% Flush (Ns Flush) (02/04/18 11:30) Lidocaine 1% Inj (Xylocaine 1% Inj) (02/04/18 11:30) Lipase (02/04/18 11:55) Labs Laboratory Tests Test 02/04/18 11:40 02/04/18 11:55 Urine Color YELLOW Urine Turbidity CLEAR Urine pH 6.5 Urine Specific [place] 1.024 Urine Protein 100 mg/dL Urine Glucose (UA) NEG mg/dL Urine Ketones NEG mg/dL Urine Occult Blood TRACE Urine Nitrite NEG Urine Bilirubin NEG Urine Urobilinogen 2.0 MG/DL Urine Leukocyte Esterase NEG Urine RBC 2 /hpf Urine WBC 1 /hpf Urine Mucus FEW /lpf Microscopic Urinalysis Comment CULT NOT INDICATED White Blood Count 5.3 TH/MM3 Red Blood Count 4.80 MIL/MM3 Hemoglobin 14.4 GM/DL Hematocrit 41.7 % Mean Corpuscular Volume 86.7 FL Mean Corpuscular Hemoglobin 30.0 PG Mean Corpuscular Hemoglobin Concent 34.6 % Red Cell Distribution Width 14.0 % Platelet Count 90 TH/MM3 Mean Platelet Volume 9.1 FL Neutrophils (%) (Auto) 65.8 % Lymphocytes (%) (Auto) 17.7 % Monocytes (%) (Auto) 9.8 % Eosinophils (%) (Auto) 6.1 % Basophils (%) (Auto) 0.6 % Neutrophils # (Auto) 3.5 TH/MM3 Lymphocytes # (Auto) 0.9 TH/MM3 Monocytes # (Auto) 0.5 TH/MM3 Eosinophils # (Auto) 0.3 TH/MM3 Basophils # (Auto) 0.0 TH/MM3 CBC Comment AUTO DIFF Differential Comment AUTO DIFF CONFIRMED Platelet Estimate LOW Platelet Morphology Comment NORMAL Ovalocytes 1+ Prothrombin Time 9.9 SEC Prothromb Time International Ratio 1.0 RATIO Activated Partial Thromboplast Time 27.9 SEC Blood Urea Nitrogen 12 MG/DL Creatinine 0.88 MG/DL Random Glucose 88 MG/DL Total Protein 8.4 GM/DL Albumin 3.5 GM/DL Calcium Level 8.5 MG/DL Alkaline Phosphatase 51 U/L Aspartate Amino Transf (AST/SGOT) 65 U/L Alanine Aminotransferase (ALT/SGPT) 53 U/L Total Bilirubin 0.4 MG/DL Sodium Level 140 MEQ/L Potassium Level 3.7 MEQ/L Chloride Level 108 MEQ/L Carbon Dioxide Level 24.9 MEQ/L Anion Gap 7 MEQ/L Estimat Glomerular Filtration Rate 92 ML/MIN Lipase 210 U/L MDM Supervised Visit with NANCY: Yes Diagnosis Primary Impression: Bronchitis Scripts Prednisone (Prednisone) 20 Mg Tab 20 MG PO DAILY for 7 Days, #7 TAB 0 Refills Prov: Irasema Mcfarland DO 02/04/18 Albuterol 18 GM Inh (Ventolin Hfa 18 GM Inh) 90 Mcg/Act Aer 2 PUFF INH Q4-6H Y for SHORTNESS OF BREATH, #1 INHALER 0 Refills Prov: Irasema Mcfarland DO 02/04/18 Azithromycin (Azithromycin) 500 Mg Tab 500 MG PO DAILY for Infection, #3 TAB 0 Refills Prov: Irasema Mcfarland DO 02/04/18 Condition: Stable Irasema Mcfarland DO Feb 04, 2018 11:29
[2018-02-04] MEDS ORDERED: LIDOCAINE HCL 1% 20 ML VIAL INFIL ONE (11:30)
[2018-02-04] MEDS ORDERED: SODIUM CHLORIDE 0.9% FLUSH 10 ML FLUSH IV FLUSH PRN (11:30)
--- NOTE | 2018-02-04 11:37 | RADRPT ---
EXAM DATE/TIME: 02/04/2018 11:16 [facility] COMPARISON: CHEST SINGLE AP, November 23, 2017, 19:55. INDICATIONS : Patient states cough. MEDICAL HISTORY : None. SURGICAL HISTORY : None. ENCOUNTER: Initial ACUITY: 3 days PAIN SCORE: 0/10 LOCATION: Bilateral chest FINDINGS: A single view of the chest demonstrates the lungs to be symmetrically aerated without evidence of mas s, infiltrate or effusion. The cardiomediastinal contours are unremarkable. Osseous structures are intact. CONCLUSION: 1. No acute cardiopulmonary findings. Prem Reynolds MD on February 04, 2018 at 11:31 Board Certified Radiologist. This report was verified electronically.
[2018-02-04 12:07] VITALS: O2SAT 95
[2018-02-04 12:07] LABS: AUTOMATED NEUTROPHIL # 3.5 TH/MM3 (1.8-7.7); BASOPHIL % 0.6 % (0.0-2.0); EOSINOPHIL # 0.3 TH/MM3 (0-0.4); EOSINOPHIL % 6.1 % (0.0-4.0); HEMATOCRIT 41.7 % (39.0-51.0); HEMOGLOBIN 14.4 GM/DL (13.0-17.0); LYMPH % 17.7 % (9.0-44.0); LYMPHOCYTE # 0.9 TH/MM3 (1.0-4.8); MEAN CELL VOLUME 86.7 FL (80.0-100.0); MEAN CORPUSCULAR HGB CONC 34.6 % (32.0-36.0); MEAN PLATELET VOLUME 9.1 FL (7.0-11.0); MONO % 9.8 % (0.0-8.0); MONOCYTE # 0.5 TH/MM3 (0-0.9); NEUT % 65.8 % (16.0-70.0); PLATELET COUNT 90 TH/MM3 (150-450); WHITE BLOOD COUNT 5.3 TH/MM3 (4.0-11.0)
[2018-02-04 12:09] LABS: BILIRUBIN, URINE NEG (NEG); BLOOD, URINE TRACE (NEG); GLUCOSE,URINE NEG (NEG); KETONE, URINE NEG (NEG); MUCUS URINE FEW /lpf (OCC); NITRITE,URINE NEG (NEG); PH, URINE 6.5 (5.0-8.5); URINE COLOR YELLOW (YELLW/STRAW); URINE LEUKOCYTE ESTERASE NEG (NEG)
[2018-02-04 12:18] LABS: PROTHROMBIN TIME - PATIENT 9.9 SEC (9.8-11.6)
[2018-02-04 12:26] LABS: ALBUMIN 3.5 GM/DL (3.4-5.0); AST (GOT) 65 U/L (15-37); BICARBONATE 24.9 MEQ/L (21.0-32.0); BLOOD UREA NITROGEN 12 MG/DL (7-18); CALCIUM 8.5 MG/DL (8.5-10.1); CHLORIDE 108 MEQ/L (98-107); CREATININE 0.88 MG/DL (0.60-1.30); GLOMERULAR FILTRATION RATE 92 ML/MIN (>89); GLUCOSE,RANDOM 88 MG/DL (74-106); SODIUM (NA) 140 MEQ/L (136-145)
[2018-02-04 12:27] LABS: ALT (GPT) 53 U/L (12-78)
[2018-02-04 12:29] LABS: ALKALINE PHOSPHATASE 51 U/L (45-117); TOTAL BILIRUBIN ADULT 0.4 MG/DL (0.2-1.0); TOTAL PROTEIN 8.4 GM/DL (6.4-8.2)
[2018-02-04 12:39] LABS: OVALOCYTES 1+ (NORMAL)
[2018-02-04] MEDS ORDERED: PRED20 PO (13:01)
[2018-02-04] MEDS ORDERED: VENTAER INH (13:01)
[2018-02-04] MEDS ORDERED: AZIT500T2 PO (13:01)
== END 2018-02-04 13:50 | disposition home or self-care (01) ==
LOC: NEPD 09:29
DX: J20.9 Acute bronchitis, unspecified (principal); J44.0 Chronic obstructive pulmonary disease with (acute) lower respiratory infection; F31.9 Bipolar disorder, unspecified; K74.60 Unspecified cirrhosis of liver; K42.9 Umbilical hernia without obstruction or gangrene; B19.20 Unspecified viral hepatitis C without hepatic coma; B20 Human immunodeficiency virus [HIV] disease; D69.6 Thrombocytopenia, unspecified; F17.210 Nicotine dependence, cigarettes, uncomplicated
CPT/HCPCS: 71045; 80053; 81001; 83690; 85025; 85610; 85730; 94664; 96360; 96372; 99283; J7030; J7512

== ENCOUNTER 2018-02-25 18:21 | Inpatient (IN) | payer MEDICAID ==
[~2018-02-25] VITALS: Ht 177.8 cm; Wt 109.6 kg
[~2018-02-25 18:21] MED LIST changes: -AZIT250T3 PO; +AZIT500T2 PO; -EMTR1TAB PO; -FLUO20CA12 PO; -KALETRA200 PO; -NEUR400C PO; -NORV100T PO; -QUET1TAB10 PO; -TRAZ50TA12 PO; +VENTAER INH
[2018-02-25 18:25] VITALS: BP 165/94; PULSE 104; RESP 20; TEMP 99.2; O2SAT 98
--- NOTE | 2018-02-25 19:08 | RADRPT ---
EXAM DATE/TIME: 02/25/2018 18:41 [facility] COMPARISON: CHEST PA & LAT, October 16, 2017, 16:04. INDICATIONS : Shortness of breath. Fatigue. MEDICAL HISTORY : Chronic obstructive pulmonary disease. Renal calculi. Hepatitis C. HIV.Cirrohsis. Smoker. SURGICAL HISTORY : None. ENCOUNTER: Initial ACUITY: 2 months PAIN SCORE: 0/10 LOCATION: Bilateral chest FINDINGS: PA and lateral views of the chest demonstrate the lungs to be symmetrically aerated without evidence of mass, infiltrate or effusion. The cardiomediastinal contours are unremarkable. Osseous structure s are intact. CONCLUSION: 1. No active disease. Isael Tian MD on February 25, 2018 at 19:04 Board Certified Radiologist. This report was verified electronically.
--- NOTE | 2018-02-25 21:27 | PD ---
HPI Chief Complaint: General Weakness Time Seen by Provider: 21:21 Travel History International Travel<30 days: No Contact w/Intl Traveler<30days: No Traveled to known affect area: No History of Present Illness HPI The patient is a 47 year old male who presents to the [facility] emergency department with a history of reportedly not feeling well for the last month and 1/2-2 months. He reports having generalized fatigue, bitemporal headache, fevers with a T-max of 100.9, sore throat, cough, congestion, shortness of breath, and open wounds on his extremities that are nonhealing. The patient additionally reports that he has a history of an abdominal hernia that is been present for the last 2 years, however over the last 2 months it has been increasingly sore, red, with an open wound. The patient's past medical history is significant for having HIV with a low CD4 count, not currently on retroviral medications. The patient also reports having a history of IV drug use, however he is reportedly clean and sober for the last 6 months. He reports that he has been to the emergency department on 2 occasions and also to his primary care physician at the [facility] regarding the symptoms. He is taken to [facility] without relief. He reports that he is also on a rescue inhaler. The patient reports that he smokes 1 pack of cigarettes per day. On review of systems otherwise, the patient denies having any neck pain or stiffness, chest pain, vomiting, diarrhea, urinary symptoms, or other neurologic symptoms. The patient reports having a decreased appetite with little to no p.o. intake for the last 4-5 days. [facility] Past Medical History Narrative Medical The patient's past medical history is significant for bipolar disorder, hepatitis C, history of HIV, history of prior IV drug use of cocaine and heroin , tobacco use, umbilical hernia. Bipolar Disorder: Yes Depression: Yes Cancer: No Cardiovascular Problems: No Cirrhosis: Yes Diminished Hearing: No Endocrine: No Gastrointestinal Disorders: Yes (UMBILICAL HERNIA) Genitourinary: No Hepatitis: Yes (C /HIV) Immune Disorder: No Kidney Stones: Yes Musculoskeletal: No Neurologic: No Psychiatric: No Reproductive: No Respiratory: No Immunizations Current: Yes Past Surgical History Narrative Surgical The patient denies any past surgical history. Social History Alcohol Use: No Tobacco Use: Yes (1/2 PPD ) Substance Use: No (HERION, CRACK OCT 20) Allergies-Medications (Allergen,Severity, Reaction): Coded Allergies: haloperidol (Verified Allergy, Severe, Swelling, 02/04/18) TONGUE SWELLING - Per pt. Reported Meds & Prescriptions Reported Meds & Active Scripts Active Ventolin Hfa 18 GM Inh (Albuterol Sulfate) 90 Mcg/Act Aer 2 Puff INH Q4-6H PRN Narrative Medication Tylenol as needed, lithium, gabapentin, Seroquel Review of Systems Except as stated in HPI: all other systems reviewed are Neg General / Constitutional: Positive: Fever Eyes: No: Visual changes HENT: Positive: Headaches, Sore Throat, Rhinorrhea, Congestion, No: Neck Stiffness, Neck Pain Cardiovascular: Positive: Dyspnea on exertion, No: Chest Pain or Discomfort Respiratory: Positive: Cough, Shortness of Breath Gastrointestinal: Positive: Abdominal Pain, Loss of Appetite, No: Nausea, Vomiting, Diarrhea Genitourinary: No: Dysuria Musculoskeletal: No: Pain Skin: No Rash Neurologic: Positive: Weakness (Generalized weakness), Headache, No: Focal Abnormalities, Change in Mentation, Slurred Speech, Sensory Disturbance Psychiatric: No: Depression Endocrine: No: Polydipsia Hematologic/Lymphatic: No: Easy Bruising Physical Exam Narrative General: The patient is a well-developed well-nourished female in no acute distress. Head and Neck exam: Head is normocephalic atraumatic. Eyes: EOMI, pupils are equal round and reactive to light. Nose: Midline septum with pink mucous membranes Mouth: Dentition unremarkable. Moist mucus membranes. Posterior oropharynx is not erythematous. No tonsillar hypertrophy. Uvula midline. Airway patent. Neck: No palpable lymphadenopathy. No nuchal rigidity. No thyromegaly. Cardiovascular: Regular rate and rhythm without murmurs, gallops, or rubs. No pulse deficit to the extremities on simultaneous auscultation and palpation of his radial artery. Lungs: Soft expiratory wheezes with coarse breath sounds bilaterally. No rhonchi or crackles audible. No accessory muscle use noted. Abdomen: Soft, distended with central obesity, no point tenderness on palpation of all 4 quadrants of the abdomen, however he has a large umbilical hernia noted that is mildly erythematous with an area of skin ulceration without any drainage. He reports that this area is tender to palpation. This hernia is not able to be reduced. No guarding, rebound, or rigidity. Normal bowel sounds are audible. No tenderness on palpation of McBurney's point. Negative Andrews sign. Extremities: No clubbing, cyanosis, or edema. 2+ pulses in all 4 extremities. No calf tenderness on palpation peer Back: No spinous process tenderness to palpation. No costovertebral angle tenderness to palpation. Neurologic Exam: Grossly nonfocal. Skin Exam: He has erythematous crusted lesions on his upper extremities intact skin that is warm and dry. Data Data Last Documented VS Vital Signs Date Time Temp Pulse Resp B/P (MAP) Pulse Ox O2 Delivery O2 Flow Rate FiO2 02/26/18 00:17 98.4 102 18 190/89 (122) 98 Room Air Orders Orders Complete Blood Count With Diff (02/25/18 18:27) Comprehensive Metabolic Panel (02/25/18 18:27) Magnesium (Mg) (02/25/18 18:27) Ckmb (Isoenzyme) Profile (02/25/18 18:) Troponin I (02/25/18 18:27) Act Partial Throm Time (Ptt) (02/25/18 18:27) Prothrombin Time / Inr (Pt) (02/25/18 18:27) Chest, Pa & Lat (02/25/18 18:) Blood Culture (02/25/18 21:24) Lactic Acid Sepsis Protocol (02/25/18 21:24) [place] (Li) (02/25/18 21:45) Ct Abd/Pel W Iv Contrast(Rout) (02/25/18 21:50) Sodium Chlor 0.9% 1000 Ml Inj (Ns 1000 M (02/25/18 22:00) Ondansetron Inj (Zofran Inj) (02/25/18 22:00) Piperacil-Tazo 3.375 Gm Premix (Zosyn 3. (02/25/18 22:00) Vancomycin Inj (Vancomycin Inj) (02/25/18 22:00) CKMB (02/25/18 21:30) CKMB% (02/25/18 21:30) Lipase (02/25/18 22:19) Ns + Kcl 20 Meq Inj (Ns + Kcl 20 Meq Inj (02/25/18 22:45) Potassium Chloride Eff (K-Lyte Cl Eff) (02/25/18 22:45) Urinalysis - C+S If Indicated (02/25/18 23:04) Ketorolac Inj (Toradol Inj) (02/26/18 00:30) Admit Order (Ed Use Only) (02/26/18 00:21) Labs Laboratory Tests Test 02/25/18 21:30 02/25/18 21:40 02/25/18 21:50 02/26/18 00:05 White Blood Count 3.3 TH/MM3 Red Blood Count 4.33 MIL/MM3 Hemoglobin 13.1 GM/DL Hematocrit 37.3 % Mean Corpuscular Volume 86.0 FL Mean Corpuscular Hemoglobin 30.1 PG Mean Corpuscular Hemoglobin Concent 35.0 % Red Cell Distribution Width 13.9 % Platelet Count 102 TH/MM3 Mean Platelet Volume 8.6 FL Neutrophils (%) (Auto) 64.2 % Lymphocytes (%) (Auto) 19.5 % Monocytes (%) (Auto) 11.5 % Eosinophils (%) (Auto) 3.9 % Basophils (%) (Auto) 0.9 % Neutrophils # (Auto) 2.1 TH/MM3 Lymphocytes # (Auto) 0.6 TH/MM3 Monocytes # (Auto) 0.4 TH/MM3 Eosinophils # (Auto) 0.1 TH/MM3 Basophils # (Auto) 0.0 TH/MM3 CBC Comment DIFF FINAL Differential Comment Prothrombin Time 10.6 SEC Prothromb Time International Ratio 1.0 RATIO Activated Partial Thromboplast Time 26.9 SEC Blood Urea Nitrogen 11 MG/DL Creatinine 0.98 MG/DL Random Glucose 91 MG/DL Total Protein 8.3 GM/DL Albumin 3.3 GM/DL Calcium Level 8.3 MG/DL Magnesium Level 1.5 MG/DL Alkaline Phosphatase 45 U/L Aspartate Amino Transf (AST/SGOT) 81 U/L Alanine Aminotransferase (ALT/SGPT) 59 U/L Total Bilirubin 0.5 MG/DL Sodium Level 141 MEQ/L Potassium Level 2.9 MEQ/L Chloride Level 110 MEQ/L Carbon Dioxide Level 25.2 MEQ/L Anion Gap 6 MEQ/L Estimat Glomerular Filtration Rate 82 ML/MIN Total Creatine Kinase 151 U/L Creatine Kinase MB 0.7 NG/ML Troponin I LESS THAN 0.02 NG/ML Lipase 168 U/L Lactic Acid Level 2.3 mmol/L 0.9 mmol/L Test 02/26/18 00:10 Urine Color YELLOW Urine Turbidity CLEAR Urine pH 6.5 Urine Specific [place] 1.024 Urine Protein 300 mg/dL Urine Glucose (UA) NEG mg/dL Urine Ketones NEG mg/dL Urine Occult Blood SMALL Urine Nitrite NEG Urine Bilirubin NEG Urine Urobilinogen 8.0 MG/DL Urine Leukocyte Esterase NEG Urine RBC 3 /hpf Urine WBC 1 /hpf Urine Transitional Epithelial Cells <1 /hpf Urine Mucus FEW /lpf Microscopic Urinalysis Comment CULT NOT INDICATED MDM Medical Decision Making Medical Screen Exam Complete: Yes Emergency Medical Condition: Yes Medical Record Reviewed: Yes Interpretation(s) Last Impressions Abdomen/Pelvis CT 02/25/182149 Signed Impressions: Service Date/Time: Monday, February 26, 2018 00:09 - CONCLUSION: 1. No acute inflammatory process. 2. Nonobstructing left-sided renal calculi. 3. Bilateral renal cysts. 4. Periumbilical fat-containing hernia unchanged. Serge Del Toro MD Chest X-Ray 02/25/181826 Signed Impressions: Service Date/Time: Sunday, February 25, 2018 18:41 - CONCLUSION: 1. No active disease. Isael Tian MD Differential Diagnosis Sepsis of undetermined origin, versus pneumonia, versus urinary tract infection , versus bowel obstruction from incarcerated hernia Narrative Course During the course of the patient's emergency department visit, the patient's history, examination, and differential diagnosis were reviewed with the patient. The patient was placed on a color television console monitor with oximetry and frequent blood pressure monitoring. The patient had IV access obtained and blood work sent for analysis. The patient had a EKG done on arrival that shows a sinus tachycardia rate of 104, QRS duration 110 ms, QTC [address] segment elevation. The patient was initially provided normal saline IV fluids, Zofran 4 mg IV for nausea, Zosyn 3.375 g IV, vancomycin 1 g IV. The patient's laboratory studies were reviewed and remarkable for a white count of 3.3, hemoglobin 13.1, platelets 102 with 11.5 monocytes, CMP is remarkable for potassium of 2.9, cardiac enzymes within normal limits, AST 81, lipase 168, lactic acid elevated at 2.3. The patient's potassium was supplemented orally and and his IV fluids. PT 10.6, PTT 26.9, urinalysis shows 300 protein small occult blood otherwise unremarkable. Radiology studies were reviewed and remarkable for a chest x-ray shows no active disease. CT scan of the abdomen and pelvis shows no acute inflammatory process, nonobstructing left-sided renal calculi, bilateral renal cysts, periumbilical fat-containing hernia that is unchanged. The patient's results were discussed with the patient, including the plan of care. I explained that further testing and/ or monitoring is indicated based on the patient's history, examination, and/ or laboratory findings. Therefore, I recommended admission for additional evaluation. The patient expressed understanding and was agreeable with this plan. The patient was admitted to the hospital in guarded condition and sent to a bed under the care of the [facility] service. Sepsis Criteria SIRS Criteria (2 or more): Heart rate over 90, WBC > 28719, < 4000 or > 10% bands Sepsis Criteria (SIRS+source): Infect source susp/known Severe Sepsis (+one): Lactate >2 Physician Communication Physician Communication The patient's case including history, pertinent physical examination findings, and laboratory studies were discussed with Dr. Elizalde. It was agreed that the patient would be admitted to the [facility] service. Diagnosis Primary Impression: Sepsis Qualified Codes: A41.9 - Sepsis, unspecified organism Additional Impression: HIV (human immunodeficiency virus infection) Admitting Information Admitting Physician Requests: Admit Lorena Esparza MD Feb 25, 2018 21:26
[2018-02-25 21:35] VITALS: BP 180/84; PULSE 108; RESP 18; O2SAT 98
[2018-02-25 21:58] LABS: PROTHROMBIN TIME - PATIENT 10.6 SEC (9.8-11.6)
[2018-02-25] MEDS ORDERED: ONDANSETRON HCL 4 MG/2 ML VIAL IV ONE (22:00)
[2018-02-25] MEDS ORDERED: VANCOMYCIN INJ 1,000 MG in SODIUM CHLOR 0.9% 250 ML INJ 250 ML IV ONE (22:00)
[2018-02-25] MEDS ORDERED: PIPERACIL-TAZO 3.375 GM PREMIX 50 ML IV ONE (22:00)
[2018-02-25] MEDS ORDERED: SODIUM CHLOR 0.9% 1000 ML INJ 1,000 ML IV ONE (22:00)
[2018-02-25 22:05] LABS: LACTIC ACID SEPSIS PROTOCOL 2.3 mmol/L (0.4-2.0)
[2018-02-25 22:09] LABS: ALBUMIN 3.3 GM/DL (3.4-5.0); ALKALINE PHOSPHATASE 45 U/L (45-117); ALT (GPT) 59 U/L (12-78); AST (GOT) 81 U/L (15-37); BICARBONATE 25.2 MEQ/L (21.0-32.0); BLOOD UREA NITROGEN 11 MG/DL (7-18); CALCIUM 8.3 MG/DL (8.5-10.1); CHLORIDE 110 MEQ/L (98-107); CREATININE 0.98 MG/DL (0.60-1.30); GLOMERULAR FILTRATION RATE 82 ML/MIN (>89); GLUCOSE,RANDOM 91 MG/DL (74-106); MAGNESIUM 1.5 MG/DL (1.5-2.5); SODIUM (NA) 141 MEQ/L (136-145); TOTAL BILIRUBIN ADULT 0.5 MG/DL (0.2-1.0); TOTAL PROTEIN 8.3 GM/DL (6.4-8.2); TROPONIN I LESS THAN 0.02 NG/ML (0.02-0.05)
[2018-02-25 22:12] LABS: AUTOMATED NEUTROPHIL # 2.1 TH/MM3 (1.8-7.7); BASOPHIL % 0.9 % (0.0-2.0); EOSINOPHIL # 0.1 TH/MM3 (0-0.4); EOSINOPHIL % 3.9 % (0.0-4.0); HEMATOCRIT 37.3 % (39.0-51.0); HEMOGLOBIN 13.1 GM/DL (13.0-17.0); LYMPH % 19.5 % (9.0-44.0); LYMPHOCYTE # 0.6 TH/MM3 (1.0-4.8); MEAN CORPUSCULAR HEMOGLOBIN 30.1 PG (27.0-34.0); MEAN PLATELET VOLUME 8.6 FL (7.0-11.0); MONO % 11.5 % (0.0-8.0); MONOCYTE # 0.4 TH/MM3 (0-0.9); NEUT % 64.2 % (16.0-70.0); PLATELET COUNT 102 TH/MM3 (150-450); RED BLOOD COUNT 4.33 MIL/MM3 (4.50-5.90); RED CELL DISTRIBUTION WIDTH 13.9 % (11.6-17.2); WHITE BLOOD COUNT 3.3 TH/MM3 (4.0-11.0)
[2018-02-25] MEDS ORDERED: POTASSIUM CHLORIDE 25 MEQ EFFERVESCENT TAB PO ONE (22:45)
[2018-02-25] MEDS: NS + KCL 20 MEQ INJ 1,000 ML IV SCH (23:07)
[2018-02-26] VITALS (10 sets, daily range): BP systolic 99–190; BP diastolic 50–89; PULSE 99–114; RESP 16–22; TEMP 98.4–101.5; O2SAT 92–99
[2018-02-26 00:24] LABS: BILIRUBIN, URINE NEG (NEG); BLOOD, URINE SMALL (NEG); GLUCOSE,URINE NEG (NEG); KETONE, URINE NEG (NEG); MUCUS URINE FEW /lpf (OCC); NITRITE,URINE NEG (NEG); PH, URINE 6.5 (5.0-8.5); TRANSITIONAL EPI CELLS, URINE <1 /hpf; URINE COLOR YELLOW (YELLW/STRAW); URINE LEUKOCYTE ESTERASE NEG (NEG)
[2018-02-26] MEDS ORDERED: IOHEXOL 350 MG/ML 10 ML VIAL (for RAD DIAG) IVCONTRAST ONE (00:26)
[2018-02-26] MEDS ORDERED: KETOROLAC TROMETHAMINE 30 MG/ML (IVP) VIAL IV PUSH ONE (00:30)
--- NOTE | 2018-02-26 00:35 | RADRPT ---
EXAM DATE/TIME: 02/26/2018 00:09 [facility] COMPARISON: CT ABDOMEN & PELVIS W CONTRAST, October 16, 2017, 18:08. INDICATIONS : Abdomen pain. IV CONTRAST: 95 cc Omnipaque 350 (iohexol) IV ORAL CONTRAST: No oral contrast ingested. RADIATION DOSE: 20.72 CTDIvol (mGy) ; Patient body habitus MEDICAL HISTORY : Chronic obstructive pulmonary disease. Cirrhosis. Hernia, umbilical.Hep C HIV SURGICAL HISTORY : None. ENCOUNTER: Initial ACUITY: 1 day PAIN SCALE: 6/10 LOCATION: Bilateral abdomen TECHNIQUE: Volumetric scanning of the abdomen and pelvis was performed. Using automated exposure control and ad justment of the mA and/or kV according to patient size, radiation dose was kept as low as reasonably achievable to obtain optimal diagnostic quality images. DICOM format image data is available electro nically for review and comparison. FINDINGS: LOWER LUNGS: The visualized lower lungs are clear. LIVER: Homogeneous density without lesion. There is no dilation of the biliary tree. No calcified gallston es. SPLEEN: Normal size without lesion. PANCREAS: Within normal limits. KIDNEYS: Normal in size and shape. There is no mass or hydronephrosis. 2 left-sided renal calculi are unchang ed the largest measuring 6-7 mm. Bilateral renal densities are stable. ADRENAL GLANDS: Within normal limits. VASCULAR: There is no aortic aneurysm. BOWEL/MESENTERY: The stomach, small bowel, and colon demonstrate no acute abnormality. There is no free intraperitone al air or fluid. Calcified lesion adjacent to the left seminal vesicle/perirectal region is unchanged and likely benign. ABDOMINAL WALL: Fat-containing periumbilical hernia stable.. RETROPERITONEUM: There is no lymphadenopathy. BLADDER: No wall thickening or mass. REPRODUCTIVE: Within normal limits. INGUINAL: There is no lymphadenopathy or hernia. MUSCULOSKELETAL: Within normal limits for patient age. CONCLUSION: 1. No acute inflammatory process. 2. Nonobstructing left-sided renal calculi. 3. Bilateral renal cysts. 4. Periumbilical fat-containing hernia unchanged. Serge Del Toro MD on February 26, 2018 at 0:31 Board Certified Radiologist. This report was verified electronically.
[2018-02-26] MEDS ORDERED: Vancomycin Consult Pharmacy 1 EA OTHER SCH (02:45)
[2018-02-26] MEDS ORDERED: BISACODYL 10 MG SUPP RECTAL PRN (02:45)
[2018-02-26] MEDS ORDERED: NALOXONE HCL 0.4 MG/ML AMP IV PUSH PRN (02:45)
[2018-02-26] MEDS ORDERED: MAGNESIUM HYDROXIDE SUSP 30 ML CUP PO PRN (02:45)
[2018-02-26] MEDS ORDERED: POTASSIUM CHLORIDE 20 MEQ CONTROLLED RELEASE TAB PO ONE (02:45)
[2018-02-26] MEDS ORDERED: SODIUM CHLORIDE 0.9% FLUSH 10 ML FLUSH IV FLUSH PRN (02:45)
[2018-02-26] MEDS ORDERED: LACTULOSE SYRUP 20 GM/30 ML CUP PO PRN (02:45)
[2018-02-26] MEDS ORDERED: SENNOSIDES 8.6 MG TAB PO PRN (02:45)
[2018-02-26] MEDS ORDERED: ONDANSETRON HCL 4 MG/2 ML VIAL IVP PRN (02:45)
--- NOTE | 2018-02-26 02:48 | RADRPT ---
EXAM DATE/TIME: 02/26/2018 01:59 [facility] COMPARISON: No previous studies available for comparison. INDICATIONS : Cephalgia. RADIATION DOSE: 56.35 CTDIvol (mGy) MEDICAL HISTORY : HIV. Hepatitis C. Cirrhosis. SURGICAL HISTORY : None. ENCOUNTER: initial ACUITY: 1 week PAIN SCALE: 9/10 LOCATION: head TECHNIQUE: Multiple contiguous axial images were obtained of the head. Using automated exposure control and adj ustment of the mA and/or kV according to patient size, radiation dose was kept as low as reasonably a chievable to obtain optimal diagnostic quality images. DICOM format image data is available electro nically for review and comparison. FINDINGS: CEREBRUM: The ventricles are normal for age. No evidence of midline shift, mass lesion, hemorrhage or acute in farction. No extra-axial fluid collections are seen. POSTERIOR FOSSA: The cerebellum and brainstem are intact. The 4th ventricle is midline. The cerebellopontine angle i s unremarkable. EXTRACRANIAL: The visualized portion of the orbits is intact. SKULL: The calvaria is intact. No evidence of skull fracture. CONCLUSION: No acute intracranial disease. Serge Del Toro MD on February 26, 2018 at 2:45 Board Certified Radiologist. This report was verified electronically.
[2018-02-26] MEDS ORDERED: RESP: ALBUTEROL 2.5 MG/IPRATROPIUM 0.5 MG NEB (PRN) NEB ×2 (03:00→15:45)
--- NOTE | 2018-02-26 03:02 | HHI.HP ---
[facility] No Primary Care Physician Admission Diagnosis Sepsis, immunocompromised state Diagnoses: Travel History International Travel<30 Days: No Contact w/Intl Traveler <30 Da: No Traveled to Known Affected Are: No History of Present Illness 47-year-old male with a past medical history significant for HIV, COPD, hepatitis C and depression/anxiety presents to the emergency department with a chief complaint of not feeling well for the past 1-1/2 months. He reports he has had a productive cough, headache, shortness of breath, weakness, fatigue and sores all over his body. He also complains of intermittent fever/chills. The patient reports he is "very sick." The patient does not follow with infectious disease specialist and reports that his last CD4 count was 9 couple of years ago. Per hospital records, the patient's CD4 count was 296 on . He also complains of a painful umbilical hernia which he states has been red and tender for several weeks. He is unsure if he has had any drainage from the area but does have an area of central ulceration and crusting. He denies any chest pain. No nausea/vomiting/diarrhea. Review of Systems Except as stated in HPI: all other systems reviewed are Neg Past Family Social History Past Medical History HIV COPD Hepatitis C Depression/bipolar History of IV drug abuse Past Surgical History None Reported Medications Reported Meds & Active Scripts Active Ventolin Hfa 18 GM Inh (Albuterol Sulfate) 90 Mcg/Act Aer 2 Puff INH Q4-6H PRN Allergies: Coded Allergies: haloperidol (Verified Allergy, Severe, Swelling, 02/04/18) TONGUE SWELLING - Per pt. Family History Patient does not know. Social History History of IV heroin abuse, last use 6 months ago. Denies any alcohol. Smokes approximately half a pack per day. Physical Exam Vital Signs Vital Signs Date Time Temp Pulse Resp B/P (MAP) Pulse Ox O2 Delivery O2 Flow Rate FiO2 02/26/18 00:17 98.4 102 18 190/89 (122) 98 Room Air 02/25/18 21:35 108 20 98 Room Air 02/25/18 21:35 108 18 180/84 (116) 98 Room Air 02/25/18 18:25 99.2 104 20 165/94 (117) 98 Physical Exam GENERAL: Obese, male lying in bed SKIN: Umbilical hernia with surrounding erythema and warmth. Area of central ulceration that is crusted without drainage. Multiple small scabs and sores along right upper extremity. HEAD: Atraumatic. Normocephalic. No temporal or scalp tenderness. EYES: Pupils equal round and reactive. Extraocular motions intact. No scleral icterus. No injection or drainage. ENT: Nose without bleeding, purulent drainage or septal hematoma. Throat without erythema, tonsillar hypertrophy or exudate. Uvula midline. Airway patent. White plaques present on tongue. NECK: Trachea midline. No JVD or lymphadenopathy. Supple, nontender, no meningeal signs. CARDIOVASCULAR: Regular rate and rhythm without murmurs, gallops, or rubs. RESPIRATORY: Clear to auscultation. Breath sounds equal bilaterally. No wheezes , rales, or rhonchi. GASTROINTESTINAL: Abdomen soft, non-tender, nondistended. No hepato-splenomegaly , or palpable masses. No guarding. MUSCULOSKELETAL: Extremities without clubbing, cyanosis, or edema. No joint tenderness, effusion, or edema noted. No calf tenderness. NEUROLOGICAL: Awake and alert. Cranial nerves II through XII intact. Motor and sensory grossly within normal limits. Normal speech. Laboratory Laboratory Tests Test 02/25/18 21:30 02/25/18 21:40 02/25/18 21:50 02/26/18 00:05 White Blood Count 3.3 Red Blood Count 4.33 Hemoglobin 13.1 Hematocrit 37.3 Mean Corpuscular Volume 86.0 Mean Corpuscular Hemoglobin 30.1 Mean Corpuscular Hemoglobin Concent 35.0 Red Cell Distribution Width 13.9 Platelet Count 102 Mean Platelet Volume 8.6 Neutrophils (%) (Auto) 64.2 Lymphocytes (%) (Auto) 19.5 Monocytes (%) (Auto) 11.5 Eosinophils (%) (Auto) 3.9 Basophils (%) (Auto) 0.9 Neutrophils # (Auto) 2.1 Lymphocytes # (Auto) 0.6 Monocytes # (Auto) 0.4 Eosinophils # (Auto) 0.1 Basophils # (Auto) 0.0 CBC Comment DIFF FINAL Differential Comment Prothrombin Time 10.6 Prothromb Time International Ratio 1.0 Activated Partial Thromboplast Time 26.9 Blood Urea Nitrogen 11 Creatinine 0.98 Random Glucose 91 Total Protein 8.3 Albumin 3.3 Calcium Level 8.3 Magnesium Level 1.5 Alkaline Phosphatase 45 Aspartate Amino Transf (AST/SGOT) 81 Alanine Aminotransferase (ALT/SGPT) 59 Total Bilirubin 0.5 Sodium Level 141 Potassium Level 2.9 Chloride Level 110 Carbon Dioxide Level 25.2 Anion Gap 6 Estimat Glomerular Filtration Rate 82 Total Creatine Kinase 151 Creatine Kinase MB 0.7 Troponin I LESS THAN 0.02 Lipase 168 Lactic Acid Level 2.3 0.9 Test 02/26/18 00:10 Urine Color YELLOW Urine Turbidity CLEAR Urine pH 6.5 Urine Specific [place] 1.024 Urine Protein 300 Urine Glucose (UA) NEG Urine Ketones NEG Urine Occult Blood SMALL Urine Nitrite NEG Urine Bilirubin NEG Urine Urobilinogen 8.0 Urine Leukocyte Esterase NEG Urine RBC 3 Urine WBC 1 Urine Transitional Epithelial Cells <1 Urine Mucus FEW Microscopic Urinalysis Comment CULT NOT INDICATED Date/Time Source Procedure Growth Status 02/25/18 21:40 Blood Peripheral Aerobic Blood Culture Pending Received 02/25/18 21:40 Blood Peripheral Anaerobic Blood Culture Pending Received Result Diagram: 02/25/18212902/25/182129 Caprini VTE Risk Assessment Caprini VTE Risk Assessment: No/Low Risk (score <= 1) Caprini Risk Assessment Model Point Value = 1 Point Value = 2 Point Value = 3 Point Value = 5 Age 41-60 Minor surgery BMI > 25 kg/m2 Swollen legs Varicose veins or History of unexplained or recurrent spontaneous Oral contraceptives or hormone replacement Sepsis (< 1 month) Serious lung disease, including pneumonia (< 1 month) Abnormal pulmonary function Acute myocardial infarction Congestive heart failure (< 1 month) History of inflammatory bowel disease Medical patient at bed rest Age 61-74 Arthroscopic surgery Major open surgery (> 45 min) Laparoscopic surgery (> 45 min) Malignancy Confined to bed (> 72 hours) Immobilizing plaster cast Central venous access Age >= 75 History of VTE Family history of VTE Factor V Leiden Prothrombin [id number] Lupus anticoagulant Anticardiolipin antibodies Elevated serum homocysteine Heparin-induced thrombocytopenia Other congenital or acquired thrombophilia Stroke (< 1 month) Elective arthroplasty Hip, pelvis, or leg fracture Acute spinal cord injury (< 1 month) Prophylaxis Regimen Total Risk Factor Score Risk Level Prophylaxis Regimen 0-1 Low Early ambulation 2 Moderate Order ONE of the following: *Sequential Compression Device (SCD) *Heparin 5000 units SQ BID 3-4 Higher Order ONE of the following medications: *Heparin 5000 units SQ TID *Enoxaparin/Lovenox 40 mg SQ daily (WT < 150 kg, CrCl > 30 mL/min) *Enoxaparin/Lovenox 30 mg SQ daily (WT < 150 kg, CrCl > 10-29 mL/min) *Enoxaparin/Lovenox 30 mg SQ BID (WT < 150 kg, CrCl > 30 mL/min) AND/OR *Sequential Compression Device (SCD) 5 or more Highest Order ONE of the following medications: *Heparin 5000 units SQ TID (Preferred with Epidurals) *Enoxaparin/Lovenox 40 mg SQ daily (WT < 150 kg, CrCl > 30 mL/min) *Enoxaparin/Lovenox 30 mg SQ daily (WT < 150 kg, CrCl > 10-29 mL/min) *Enoxaparin/Lovenox 30 mg SQ BID (WT < 150 kg, CrCl > 30 mL/min) AND *Sequential Compression Device (SCD) Assessment and Plan Assessment and Plan Assessment/plan: 1. Sepsis/Cellulitis Patient tachycardic with white blood cell count of 3.3, lactic acid elevated to 2.3 Vancomycin/Zosyn Blood cultures pending CT of the abdomen/pelvis showed a periumbilical fat-containing hernia is unchanged from previous Hernia skin red and warm to the touch with central area of crusted ulceration - possible source Chest x-ray negative for acute process Head CT pending Infectious disease consulted, appreciate assistance 2. HIV CD4 count 296 on 07/16/17 Repeat CD4 count pending Patient not currently taking antiretroviral medication 3. Thrush Nystatin swish/swallow 4. COPD DuoNeb's 5. Hepatitis C Follow-up with outpatient 6. Bipolar disorder/depression Patient not currently on any medications Consult psych as needed 7. Hypokalemia IV fluids with supplemental potassium Status post by mouth supplementation Monitor BMP FEN Regular diet Electrolytes: as above NS + 20 KCl at 125 cc/hr Physician Certification 2 Midnight Certification Type: Admission for Inpatient Services Order for Inpatient Services The services are ordered in accordance with Medicare regulations or non- Medicare payer requirements, as applicable. In the case of services not specified as inpatient-only, they are appropriately provided as inpatient services in accordance with the 2-midnight benchmark. Estimated LOS (days): 2 2 days is the estimated time the patient will need to remain in the hospital, assuming treatment plan goals are met and no additional complications. Post-Hospital Plan: Not yet determined Hermila Elizalde MD Feb 26, 2018 03:02
[2018-02-26] MEDS: PIPERACIL-TAZO 3.375 GM PREMIX 50 ML IV SCH ×4 (03:19→21:51)
[2018-02-26] MEDS: NS + KCL 20 MEQ INJ 1,000 ML IV SCH ×3 (05:55→21:51)
[2018-02-26] MEDS: ACETAMINOPHEN 325 MG TAB PO PRN ×3 (05:58→22:06)
[2018-02-26] MEDS: DOCUSATE SODIUM 50 MG/SENNA 8.6 MG TAB PO SCH ×2 (07:51→21:51)
[2018-02-26] MEDS: SODIUM CHLORIDE 0.9% FLUSH 10 ML FLUSH IV FLUSH SCH ×2 (07:51→21:51)
[2018-02-26] MEDS: NYSTATIN SUSP 500,000 U/5 ML CUP SWISH-SWAL SCH ×4 (07:57→21:51)
[2018-02-26] MEDS: VANCOMYCIN INJ 1,250 MG in SODIUM CHLOR 0.9% 250 ML INJ 250 ML IV SCH ×2 (07:57→15:41)
--- NOTE | 2018-02-26 08:06 | EKG ---
Date Performed: 02/25/2018 Time Performed: 21:21:22 PTAGE: 47 years EKG: SINUS TACHYCARDIA POSSIBLE INFERIOR MYOCARDIAL INFARCTION ABNORMAL RHYTHM ECG Compared to p rior electrocardiogram, rate has increased PREVIOUS TRACING : 11/24/2017 00.33 DOCTOR: Spike Zamarripa Interpretating Date/Time 02/26/2018 08:05:46
[2018-02-26] MEDS ORDERED: VANCOMYCIN INJ 1,000 MG in SODIUM CHLOR 0.9% 250 ML INJ 250 ML IV SCH (10:00)
--- NOTE | 2018-02-26 14:02 | MB ---
cc: Pop Toribio MD DATE: 02/26/2018 REQUESTING PHYSICIAN: Dr. Elizalde. REASON FOR CONSULTATION: History of AIDS. Sepsis. HISTORY OF PRESENT ILLNESS: This is a 47-year-old white male who has HIV. The patient presented to the emergency department with coughing and generalized weakness. The patient reports to me that he has been sick for 1-1/2 months. He states that he has presented to the emergency department for evaluation on 2 occasions and also to his primary doctor and he did not get any better. He notes soreness of the throat, cough, shortness of breath, headache at the frontal area, muscle aches and pain at the upper body, generalized weakness and also fevers. He states that he has been getting fevers every day. 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 He notes that he has had poor appetite and has not eaten any significant food intake for the past 5 days. He has a history of IV drug abuse, but he has been in rehab at [facility]. He denies IV drugs over the past 6 months. He notes that he has been given oral antibiotics without improvement. He notes the last antibiotics were completed about a week ago. He states that he takes ibuprofen on a daily basis because of the fevers and headache. The patient has not taken HIV medications for 2 years. He moved from [place] to [place] 2 years ago and did not get medical followup for continuing HIV management. His last CD4 count was noted to have been over 200. CD4 count has been repeated and is pending. The patient states that he coughs up occasional yellow sputum. During my evaluation, he broke out several times into coughing spells where he was coughing profusely, but not bringing up much sputum. Blood cultures have been obtained and the results are pending. His maximum temperature while in the ED so far is 100.3. LABORATORY DATA: White blood cell count is 3.3 and differential shows 64% neutrophils, 19% lymphocytes and 11% monocytes. CT scan of the abdomen and pelvis was performed and it showed no acute inflammatory process. Nonobstructing left-sided renal calculi was noted. Bilateral renal cysts were also noted. Periumbilical hernia was also reported. CAT scan of the head showed no acute intracranial process. Chest x-ray shows no active disease. PAST MEDICAL HISTORY: Hepatitis C, cirrhosis of the liver, COPD, bipolar, depression, HIV disease, history of IV drug abuse, umbilical hernia. ALLERGIES: HALOPERIDOL. MEDICATIONS: 1. Vancomycin. 2. Piperacillin/tazobactam. 3. Nystatin swish and swallow. 4. Tylenol. SOCIAL HISTORY: History of IV drug abuse, but denies IV drug use in the past 6 months. He smokes half a pack of cigarettes a day. Denies alcohol use. FAMILY HISTORY: Noncontributory. REVIEW OF SYSTEMS: CONSTITUTIONAL: Significant for night sweats and fever. HEAD, EARS, EYES, NOSE AND THROAT: No blurring or diplopia. No difficulty swallowing. Occasional soreness of the throat. NECK: Denies neck pain or swelling. CARDIOVASCULAR: Denies palpitation or chest pain. RESPIRATORY: Significant for cough and occasional shortness of breath. GASTROINTESTINAL: Denies nausea, vomiting, abdominal pain or diarrhea. GENITOURINARY: Denies urgency, frequency or dysuria. HEMATOPOIETIC: Denies easy bruising or bleeding. ENDOCRINE: Denies polyuria or polydipsia. INTEGUMENTARY: Denies skin rash or itching. NEUROLOGIC: Denies problems with coordination. PSYCHIATRIC: Denies depression. PHYSICAL EXAMINATION: GENERAL: This is an obese male who is in no acute distress. He looks chronically ill. VITAL SIGNS: Includes temperature 99.2, blood pressure 102/65, heart rate 103, respirations 18. HEENT: Head is atraumatic. Extraocular movements grossly intact. Pupils reactive to light. No icterus. Oropharynx moist mucosa. Erythema of the tongue. No thrush. NECK: Supple without adenopathy or swelling. LUNGS: Decreased breath sounds bilaterally. HEART: Regular S1, S2. No audible murmurs. ABDOMEN: Bowel sounds present, soft, no tenderness appreciated. Abdomen is obese. There has a bulging umbilical hernia, which has erythema and a dry area of excoriation. The erythema blanches. GENITOURINARY: Normal genitalia. RECTAL: Not performed. EXTREMITIES: No clubbing, cyanosis or edema. SKIN: Diffuse erythematous macular rash involving the arms, legs, abdomen, neck and upper back. NEUROLOGIC: No gross focal findings. PSYCHIATRIC: The patient is calm and cooperative. LABORATORY DATA: WBC 3.3, platelets 102, 64% neutrophils, hemoglobin 13.1. Creatinine 0.8, BUN 11, sodium 141, AST 81, ALT 59, alkaline phosphatase 45, lactic acid 2.3. IMPRESSION: 1. Sepsis indicated by fever, tachycardia, lactic acid elevation, leukopenia. Questionable etiology. 2. Human immunodeficiency virus immunosuppression. 3. Diffuse macular rash, which may be medication related. 4. Cough. Possible related to pneumonia. Possible opportunistic infection in this patient who has human immune deficiency disease disease and may be severely immunosuppressed and has not been on antiviral medication. The drug rash may be secondary to antibiotics or be exacerbated by antibiotic. RECOMMENDATIONS: 1. Discontinue piperacillin/tazobactam. 2. Continue vancomycin. 3. Obtain blood culture for AFB. 4. Monitor blood culture, which has been ordered. 5. Monitor the clinical response to current antibiotic treatment with vancomycin. 6. Obtain LDH. 7. Continue to follow chest x-rays serially. It is not clear that the coughing is due to PJP pneumonia. Also, he has an umbilical hernia with some erythema, but I do not think that is causing the septic picture that we are seeing currently. Thank you for this consultation. I will follow the patient's progress with you. MD VIOLETA Zavala/IZON , 01:11 PM , 02:01 PM AIDAN
[2018-02-26] MEDS ORDERED: PHARMACY ORDERED LAB ONE (17:45)
[2018-02-26] MEDS: RESP: ALBUTEROL 2.5 MG/IPRATROPIUM 0.5 MG NEB (SCH) NEB (20:15)
[2018-02-26] MEDS: VANCOMYCIN 1,500 MG/NS 500 ML IV SCH ×2 (23:55)
[2018-02-27] VITALS (8 sets, daily range): BP systolic 117–132; BP diastolic 57–63; PULSE 86–103; RESP 17–22; TEMP 97.7–99.5; O2SAT 90–94
[2018-02-27] MEDS: PIPERACIL-TAZO 3.375 GM PREMIX 50 ML IV SCH (03:28)
[2018-02-27] MEDS: NS + KCL 20 MEQ INJ 1,000 ML IV SCH ×3 (06:13→22:45)
[2018-02-27] MEDS: VANCOMYCIN 1,500 MG/NS 500 ML IV SCH ×4 (08:01→17:08)
[2018-02-27] MEDS: NYSTATIN SUSP 500,000 U/5 ML CUP SWISH-SWAL SCH ×4 (08:02→20:14)
[2018-02-27] MEDS: DOCUSATE SODIUM 50 MG/SENNA 8.6 MG TAB PO SCH ×2 (08:02→20:13)
[2018-02-27] MEDS: SODIUM CHLORIDE 0.9% FLUSH 10 ML FLUSH IV FLUSH SCH ×2 (08:03→20:14)
[2018-02-27] MEDS: ACETAMINOPHEN 325 MG TAB PO PRN ×2 (08:04→18:33)
[2018-02-27] MEDS: RESP: ALBUTEROL 2.5 MG/IPRATROPIUM 0.5 MG NEB (SCH) NEB ×3 (08:30→20:16)
[2018-02-27 08:57] LABS: BICARBONATE 20.5 MEQ/L (21.0-32.0); CALCIUM 7.3 MG/DL (8.5-10.1); CREATININE 0.87 MG/DL (0.60-1.30)
[2018-02-27 09:21] LABS: CALCIUM-PROTEIN CORRECTED 7.6 MG/DL (8.5-10.1); TOTAL PROTEIN 6.6 GM/DL (6.4-8.2)
--- NOTE | 2018-02-27 10:30 | HHI.PR ---
Subjective Remarks Patient says that shortness of breath continues unchanged. Denies any chest pain. Continued nausea, however vomiting has improved. Objective Vital Signs Date Time Temp Pulse Resp B/P (MAP) Pulse Ox O2 Delivery O2 Flow Rate FiO2 02/27/18 09:18 97.7 103 20 122/57 (78) 91 02/27/18 08:32 91 21 02/27/18 04:00 98.1 86 19 132/60 (84) 93 02/27/18 00:07 99.5 103 22 119/60 (79) 92 02/26/18 20:18 96 Nasal Cannula 2.00 02/26/18 20:00 99.0 102 22 106/53 (70) 92 02/26/18 16:33 101.5 113 18 127/85 (99) 94 02/26/18 11:55 103 18 102/65 (77) 98 Nasal Cannula 2.00 I/O 02/26/18 02/26/18 02/26/18 02/27/18 02/27/18 02/27/18 07:00 15:00 23:00 07:00 15:00 23:00 Intake Total 312 ml 500 ml Output Total 450 ml 450 ml 400 ml Balance -138 ml 50 ml -400 ml Intake IV Total 312 ml 500 ml Output Urine Total 450 ml 450 ml 400 ml # Bowel Movements 1 Result Diagram: 02/25/18 2130 02/27/18 0700 Objective Remarks GENERAL: Patient lying in bed. Appears comfortable. SKIN: Warm and dry. HEAD: Normocephalic. EYES: No scleral icterus. No injection or drainage. NECK: Supple, trachea midline. No JVD. CARDIOVASCULAR: Regular rate and rhythm without murmurs, gallops, or rubs. RESPIRATORY: Breath sounds equal bilaterally. No accessory muscle use. GASTROINTESTINAL: Abdomen soft, non-tender, nondistended. MUSCULOSKELETAL: No cyanosis, or edema. BACK: Nontender without obvious deformity. No CVA tenderness. A/P Assessment and Plan //Sepsis/Cellulitis Patient tachycardic with white blood cell count of 3.3, lactic acid elevated to 2.3 Vancomycin/Zosyn Blood cultures pending CT of the abdomen/pelvis showed a periumbilical fat-containing hernia is unchanged from previous Hernia skin red and warm to the touch with central area of crusted ulceration - possible source Chest x-ray negative for acute process Head CT pending Infectious disease consulted, appreciate assistance = Patient continues tachycardic, tachypneic. Last fever 101.5 yesterday evening. Continue on broad-spectrum antibiotics. Pending cultures. Negative at this time. Appreciate ID assistance. Repeat CBC pending. // HIV CD4 count 296 on 07/16/17 Repeat CD4 count pending Patient not currently taking antiretroviral medication = CD4 count continues to be pending. Appreciate ID assistance. //Thrush -Improving. Nystatin swish/swallow // COPD DuoNeb's // Hepatitis C Follow-up with outpatient //Bipolar disorder/depression Patient not currently on any medications Consult psych as needed = No signs of acute exacerbation at this time. // Hypokalemia IV fluids with supplemental potassium Status post by mouth supplementation Monitor BMP = Resolved on repeat testing. FEN Regular diet Electrolytes: as above NS + 20 KCl at 125 cc/hr Discharge Planning Continue treatment for sepsis. Shabbir Talbert MD Feb 27, 2018 10:30
[2018-02-27 10:32] LABS: AUTOMATED NEUTROPHIL # 1.6 TH/MM3 (1.8-7.7); BASOPHIL % 0.6 % (0.0-2.0); EOSINOPHIL # 0.4 TH/MM3 (0-0.4); EOSINOPHIL % 13.5 % (0.0-4.0); HEMATOCRIT 34.4 % (39.0-51.0); HEMOGLOBIN 11.9 GM/DL (13.0-17.0); LYMPH % 14.2 % (9.0-44.0); LYMPHOCYTE # 0.4 TH/MM3 (1.0-4.8); MEAN CELL VOLUME 86.5 FL (80.0-100.0); MEAN CORPUSCULAR HGB CONC 34.7 % (32.0-36.0); MEAN PLATELET VOLUME 8.7 FL (7.0-11.0); MONO % 12.4 % (0.0-8.0); MONOCYTE # 0.3 TH/MM3 (0-0.9); NEUT % 59.3 % (16.0-70.0); PLATELET COUNT 77 TH/MM3 (150-450); RED BLOOD COUNT 3.98 MIL/MM3 (4.50-5.90); RED CELL DISTRIBUTION WIDTH 14.3 % (11.6-17.2); WHITE BLOOD COUNT 2.6 TH/MM3 (4.0-11.0)
--- NOTE | 2018-02-27 10:47 | HHI.IDPN ---
Note Infectious Disease Note Patient says he still feels very ill. Notes that he continues to have headache. Also notes that he has pain in his chest. Continues to have coughing spells. Clear phlegm produced. Notes also continued diarrhea. Continued fever. Last elevated temperature 101 yesterday evening. Patient presented to the emergency department with coughing and generalized weakness. The patient reports to me that he has been sick for 1-1/2 months. The patient has not taken HIV medications for 2 years. He moved from [place] to [place] 2 years ago and did not get medical followup for continuing HIV management. PAST MEDICAL HISTORY: Hepatitis C, cirrhosis of the liver, COPD, bipolar, depression, HIV disease, history of IV drug abuse, umbilical hernia. ALLERGIES: HALOPERIDOL. MEDICATIONS: Current Medications Medications (Trade) Dose Ordered Sig/Michelle Route PRN Reason Start Time Stop Time Status Last Admin Dose Admin Potassium Chloride/Sodium Chloride 1,000 ml @ 125 mls/hr Q8H IV 02/25/18 22:45 02/26/18 21:51 Pharmacy Profile Note 0 ml @ 0 mls/hr UNSCH OTHER 02/26/18 02:45 Piperacillin Sod/ Tazobactam Sod 50 ml @ 100 mls/hr Q6H IV 02/26/18 04:00 02/27/18 03:28 Nystatin (Mycostatin Liq) 5 ml QID SWISH-SWAL 02/26/18 09:00 02/26/18 21:51 Sodium Chloride (NS Flush) 2 ml UNSCH PRN IV FLUSH FLUSH AFTER USING IV ACCESS 02/26/18 02:45 Sodium Chloride (NS Flush) 2 ml BID IV FLUSH 02/26/18 09:00 02/27/18 08:03 Acetaminophen (Tylenol) 650 mg Q4H PRN PO TEMP > 100.4, SEXTON 02/26/18 02:45 02/27/18 08:04 Ondansetron HCl (Zofran Inj) 4 mg Q6H PRN IVP NAUSEA OR VOMITING 02/26/18 02:45 02/26/18 05:58 Naloxone HCl (Narcan Inj) 0.4 mg UNSCH PRN IV PUSH SEE LABEL COMMENTS 02/26/18 02:45 Senna/Docusate Sodium (Misa-Colace) 1 tab BID PO 02/26/18 09:00 02/26/18 21:51 Magnesium Hydroxide (Milk Of Magnesia Liq) 30 ml Q12H PRN PO Mild constipation 02/26/18 02:45 Sennosides (Senokot) 17.2 mg Q12H PRN PO Moderate constipation 02/26/18 02:45 Bisacodyl (Dulcolax Supp) 10 mg DAILY PRN RECTAL SEVERE CONSITIPATION 02/26/18 02:45 Lactulose (Lactulose Liq) 30 ml DAILY PRN PO SEVERE CONSITIPATION 02/26/18 02:45 Albuterol/ Ipratropium (Duoneb Neb) 1 ampule Q6HR WHILE AWAKE NEB NEB 02/26/18 20:00 02/27/18 08:30 Albuterol/ Ipratropium (Duoneb Neb) 1 ampule Q4HR NEB PRN NEB dyspnea 02/26/18 15:45 Vancomycin HCl 1500 mg/Sodium Chloride 515 ml @ 257.5 mls/ hr Q8H IV 02/27/18 00:00 02/27/18 08:01 Miscellaneous Information SPECIFIC LAB TO BE MAGUE... ONCE ONCE .XX 02/27/18 15:45 02/27/18 15:46 SOCIAL HISTORY: History of IV drug abuse, but denies IV drug use in the past 6 months. He smokes half a pack of cigarettes a day. Denies alcohol use. Objective: Vital Signs Date Time Temp Pulse Resp B/P (MAP) Pulse Ox O2 Delivery O2 Flow Rate FiO2 02/27/18 09:18 97.7 103 20 122/57 (78) 91 02/27/18 08:32 91 21 02/27/18 04:00 98.1 86 19 132/60 (84) 93 02/27/18 00:07 99.5 103 22 119/60 (79) 92 02/26/18 20:18 96 Nasal Cannula 2.00 02/26/18 20:00 99.0 102 22 106/53 (70) 92 02/26/18 16:33 101.5 113 18 127/85 (99) 94 02/26/18 11:55 103 18 102/65 (77) 98 Nasal Cannula 2.00 Laboratory Tests Test 02/25/18 21:30 02/27/18 08:00 White Blood Count 3.3 TH/MM3 2.6 TH/MM3 Red Blood Count 4.33 MIL/MM3 3.98 MIL/MM3 Hemoglobin 13.1 GM/DL 11.9 GM/DL Hematocrit 37.3 % 34.4 % Mean Corpuscular Volume 86.0 FL 86.5 FL Mean Corpuscular Hemoglobin 30.1 PG 30.0 PG Mean Corpuscular Hemoglobin Concent 35.0 % 34.7 % Red Cell Distribution Width 13.9 % 14.3 % Platelet Count 102 TH/MM3 77 TH/MM3 Mean Platelet Volume 8.6 FL 8.7 FL Neutrophils (%) (Auto) 64.2 % 59.3 % Lymphocytes (%) (Auto) 19.5 % 14.2 % Monocytes (%) (Auto) 11.5 % 12.4 % Eosinophils (%) (Auto) 3.9 % 13.5 % Basophils (%) (Auto) 0.9 % 0.6 % Neutrophils # (Auto) 2.1 TH/MM3 1.6 TH/MM3 Lymphocytes # (Auto) 0.6 TH/MM3 0.4 TH/MM3 Monocytes # (Auto) 0.4 TH/MM3 0.3 TH/MM3 Eosinophils # (Auto) 0.1 TH/MM3 0.4 TH/MM3 Basophils # (Auto) 0.0 TH/MM3 0.0 TH/MM3 CBC Comment DIFF FINAL AUTO DIFF Differential Comment Laboratory Tests Test 02/25/18 21:30 02/25/18 21:40 02/26/18 00:05 02/27/18 07:00 Blood Urea Nitrogen 11 MG/DL 10 MG/DL Creatinine 0.98 MG/DL 0.87 MG/DL Random Glucose 91 MG/DL 77 MG/DL Total Protein 8.3 GM/DL 6.6 GM/DL Albumin 3.3 GM/DL Calcium Level 8.3 MG/DL 7.3 MG/DL Magnesium Level 1.5 MG/DL Alkaline Phosphatase 45 U/L Aspartate Amino Transf (AST/SGOT) 81 U/L Alanine Aminotransferase (ALT/SGPT) 59 U/L Total Bilirubin 0.5 MG/DL Sodium Level 141 MEQ/L 142 MEQ/L Potassium Level 2.9 MEQ/L 3.9 MEQ/L Chloride Level 110 MEQ/L 112 MEQ/L Carbon Dioxide Level 25.2 MEQ/L 20.5 MEQ/L Anion Gap 6 MEQ/L 10 MEQ/L Estimat Glomerular Filtration Rate 82 ML/MIN 94 ML/MIN Lactate Dehydrogenase 242 U/L Total Creatine Kinase 151 U/L Creatine Kinase MB 0.7 NG/ML Troponin I LESS THAN 0.02 NG/ML Lipase 168 U/L Lactic Acid Level 2.3 mmol/L 0.9 mmol/L Protein Corrected Calcium 7.6 MG/DL Microbiology Date/Time Source Procedure Growth Status 02/26/18 15:50 Blood Peripheral Mycobacterial Culture Pending Received 02/25/18 21:40 Blood Peripheral Aerobic Blood Culture - Preliminary NO GROWTH IN 1 DAY Resulted 02/25/18 21:40 Blood Peripheral Anaerobic Blood Culture - Preliminary NO GROWTH IN 1 DAY Resulted 02/25/18 21:35 Blood Peripheral Aerobic Blood Culture - Preliminary NO GROWTH IN 1 DAY Resulted 02/25/18 21:35 Blood Peripheral Anaerobic Blood Culture - Preliminary NO GROWTH IN 1 DAY Resulted PHYSICAL EXAMINATION: GENERAL: No acute distress. He looks chronically ill. HEENT: Head is atraumatic. Extraocular movements grossly intact. Pupils reactive to light. No icterus. Oropharynx moist mucosa. Erythema of the tongue. No thrush. NECK: Supple without adenopathy or swelling. LUNGS: Decreased breath sounds. HEART: Regular S1, S2. No audible murmurs. ABDOMEN: Bowel sounds present, soft, no tenderness appreciated. Abdomen is obese. There has a bulging umbilical hernia, which has erythema and a dry area of excoriation. The erythema blanches. GENITOURINARY: Normal genitalia. EXTREMITIES: No clubbing, cyanosis or edema. SKIN: Diffuse erythematous macular rash involving the arms, legs, abdomen, neck and upper back is slightly faded. NEUROLOGIC: No gross focal findings. PSYCHIATRIC: Calm and cooperative. IMPRESSION: 1. Sepsis indicated by fever, tachycardia, lactic acid elevation, leukopenia. Questionable etiology. 2. Human immunodeficiency virus immunosuppression. 3. Diffuse macular rash, which may be medication related. 4. Cough. Possible related to pneumonia. Possible opportunistic infection in this patient who has human immune deficiency disease disease and may be severely immunosuppressed and has not been on antiviral medication. The drug rash may be secondary to antibiotics or exacerbated by antibiotic. RECOMMENDATIONS: 1. Continue vancomycin. 2. Stop piperacillin. 3. Begin empiric treatment for PJP. 4. Add Bactrim for PJP coverage. 5. Monitor blood culture AFB culture. 6. Monitor blood culture. 7. Repeat chest x-ray Dontfraid,Pop F MD Feb 27, 2018 10:47
[2018-02-27 11:54] LABS: OVALOCYTES 1+ (NORMAL)
[2018-02-27] MEDS: SULFAMETHOXAZOLE-TRIMETHOPRIM DS 800-160 MG TAB PO SCH ×2 (12:18→20:13)
--- NOTE | 2018-02-27 13:54 | RADRPT ---
EXAM DATE/TIME: 02/27/2018 13:37 [facility] COMPARISON: CHEST PA & LAT, February 25, 2018, 18:41. INDICATIONS : Pneumonia. Patient complains of chest pain, weakness and cough. MEDICAL HISTORY : Chronic obstructive pulmonary disease. Cirrhosis. Hernia, umbilical.Hep C HIV SURGICAL HISTORY : None. ENCOUNTER: Initial ACUITY: 2 months PAIN SCORE: 4/10 LOCATION: Bilateral chest FINDINGS: PA and lateral views of the chest demonstrate the lungs to be symmetrically aerated without evidence of mass, infiltrate or effusion. The cardiomediastinal contours are unremarkable. Osseous structure s are intact. CONCLUSION: No acute disease. Elias Reynolds MD FACR on February 27, 2018 at 13:51 Board Certified Radiologist. This report was verified electronically.
[2018-02-27] MEDS ORDERED: PHARMACY ORDERED LAB-VANCO TROUGH ONE (15:45)
[2018-02-28] VITALS: BP 122/67; PULSE 101; RESP 18; TEMP 98.1; O2SAT 95
[2018-02-28] MEDS: ACETAMINOPHEN 325 MG TAB PO PRN ×3 (02:32→14:13)
[2018-02-28 04:00] VITALS: BP 124/90; PULSE 83; RESP 19; TEMP 98; O2SAT 94
[2018-02-28] MEDS: SULFAMETHOXAZOLE-TRIMETHOPRIM DS 800-160 MG TAB PO SCH ×3 (05:09→20:27)
[2018-02-28] MEDS: NS + KCL 20 MEQ INJ 1,000 ML IV SCH ×2 (05:10→14:14)
[2018-02-28] MEDS ORDERED: VANCOMYCIN 1,500 MG/NS 500 ML IV SCH ×2 (06:00)
[2018-02-28 07:44] LABS: AUTOMATED NEUTROPHIL # 1.4 TH/MM3 (1.8-7.7); BASOPHIL % 0.7 % (0.0-2.0); EOSINOPHIL # 0.5 TH/MM3 (0-0.4); EOSINOPHIL % 16.9 % (0.0-4.0); HEMATOCRIT 34.1 % (39.0-51.0); HEMOGLOBIN 12.1 GM/DL (13.0-17.0); LYMPH % 23.4 % (9.0-44.0); LYMPHOCYTE # 0.7 TH/MM3 (1.0-4.8); MEAN CELL VOLUME 86.2 FL (80.0-100.0); MEAN CORPUSCULAR HEMOGLOBIN 30.7 PG (27.0-34.0); MEAN CORPUSCULAR HGB CONC 35.6 % (32.0-36.0); MEAN PLATELET VOLUME 8.4 FL (7.0-11.0); MONO % 9.3 % (0.0-8.0); MONOCYTE # 0.3 TH/MM3 (0-0.9); NEUT % 49.7 % (16.0-70.0); PLATELET COUNT 67 TH/MM3 (150-450); RED BLOOD COUNT 3.95 MIL/MM3 (4.50-5.90); RED CELL DISTRIBUTION WIDTH 14.2 % (11.6-17.2); WHITE BLOOD COUNT 2.8 TH/MM3 (4.0-11.0)
[2018-02-28] MEDS: SODIUM CHLORIDE 0.9% FLUSH 10 ML FLUSH IV FLUSH SCH ×2 (07:58→20:29)
[2018-02-28] MEDS: NYSTATIN SUSP 500,000 U/5 ML CUP SWISH-SWAL SCH ×4 (07:59→20:28)
[2018-02-28] MEDS: DOCUSATE SODIUM 50 MG/SENNA 8.6 MG TAB PO SCH ×2 (08:00→20:27)
[2018-02-28 08:01] VITALS: BP 129/63; PULSE 77; RESP 20; TEMP 97.9; O2SAT 91
[2018-02-28 08:14] LABS: ALBUMIN 2.5 GM/DL (3.4-5.0); BICARBONATE 24.4 MEQ/L (21.0-32.0); CALCIUM 7.5 MG/DL (8.5-10.1); CREATININE 0.73 MG/DL (0.60-1.30); MAGNESIUM 1.8 MG/DL (1.5-2.5); PHOSPHORUS 2.2 MG/DL (2.5-4.9)
[2018-02-28] MEDS: RESP: ALBUTEROL 2.5 MG/IPRATROPIUM 0.5 MG NEB (SCH) NEB ×3 (08:45→20:00)
[2018-02-28 09:45] LABS: OVALOCYTES 1+ (NORMAL)
[2018-02-28 11:32] VITALS: BP 129/71; PULSE 84; RESP 20; TEMP 97.9; O2SAT 92
--- NOTE | 2018-02-28 14:04 | HHI.PR ---
Subjective Remarks Patient says he is feeling all right. Denies any chest pain. Shortness of breath improved, however patient reports bilateral hand numbness and weakness for the past 2 days. Objective Vital Signs Date Time Temp Pulse Resp B/P (MAP) Pulse Ox O2 Delivery O2 Flow Rate FiO2 02/28/18 11:32 97.9 84 20 129/71 (90) 92 02/28/18 08:01 97.9 77 20 129/63 (85) 91 02/28/18 04:00 98.0 83 19 124/90 (101) 94 02/28/18 00:00 98.1 101 18 122/67 (85) 95 02/27/18 20:16 90 21 02/27/18 20:00 98.9 100 17 120/62 (81) 94 02/27/18 15:29 98.1 93 20 117/57 (77) 93 I/O 02/27/18 02/27/18 02/27/18 02/28/18 02/28/18 02/28/18 07:00 15:00 23:00 07:00 15:00 23:00 Intake Total 500 ml 2220 ml 1950 ml Output Total 450 ml 400 ml 550 ml 700 ml 1100 ml Balance 50 ml -400 ml 1670 ml 1250 ml -1100 ml Intake Oral 1720 ml 950 ml IV Total 500 ml 500 ml 1000 ml Output Urine Total 450 ml 400 ml 550 ml 700 ml 1100 ml # Voids 1 2 # Bowel Movements 0 0 Result Diagram: 02/28/1871102/28/18 07 Objective Remarks GENERAL: Patient lying in bed. Appears comfortable. SKIN: Warm and dry. HEAD: Normocephalic. EYES: No scleral icterus. No injection or drainage. NECK: Supple, trachea midline. No JVD. CARDIOVASCULAR: Regular rate and rhythm without murmurs, gallops, or rubs. RESPIRATORY: Breath sounds equal bilaterally. No accessory muscle use. GASTROINTESTINAL: Abdomen soft, non-tender, nondistended. MUSCULOSKELETAL: No cyanosis, or edema. Neurologic. Bilateral hands with sensation intact. Strength 4 out of 5 bilateral upper extremities. BACK: Nontender without obvious deformity. No CVA tenderness. A/P Assessment and Plan //Sepsis/Cellulitis Patient tachycardic with white blood cell count of 3.3, lactic acid elevated to 2.3 Vancomycin/Zosyn Blood cultures pending CT of the abdomen/pelvis showed a periumbilical fat-containing hernia is unchanged from previous Hernia skin red and warm to the touch with central area of crusted ulceration - possible source Chest x-ray negative for acute process Head CT pending Infectious disease consulted, appreciate assistance = Patient continues tachycardic, tachypneic. Last fever 101.5 yesterday evening. Continue on broad-spectrum antibiotics. Pending cultures. Negative at this time. Appreciate ID assistance. Repeat CBC pending. = No fevers in the past 24 hours. Appreciate ID assistance. Continue IV antibiotics as per ID //Pancytopenia. Likely secondary to HIV. Continue to monitor. If continues, will consult hematology. // HIV CD4 count 296 on 07/16/17 Repeat CD4 count pending Patient not currently taking antiretroviral medication = CD4 count continues to be pending. Appreciate ID assistance. //Bilateral hand numbness. Consult neurology. //Thrush -Improving. Nystatin swish/swallow // COPD DuoNeb's // Hepatitis C Follow-up with outpatient //Bipolar disorder/depression Patient not currently on any medications Consult psych as needed = No signs of acute exacerbation at this time. // Hypokalemia IV fluids with supplemental potassium Status post by mouth supplementation Monitor BMP = Resolved on repeat testing. FEN Regular diet Electrolytes: as above NS + 20 KCl at 125 cc/hr Discharge Planning Continue treatment for sepsis. Discharge Planning Continue treatment for sepsis. Shabbir Talbert MD Feb 28, 2018 14:04
[2018-02-28 14:58] VITALS: BP 144/78; PULSE 81; RESP 20; TEMP 98.1; O2SAT 94
[2018-02-28] MEDS: VANCOMYCIN INJ 1,750 MG in SODIUM CHLORID 0.9% 500 ML INJ 500 ML IV SCH (17:35)
[2018-02-28 20:00] VITALS: BP 137/88; PULSE 85; RESP 18; TEMP 98.3; O2SAT 92
--- NOTE | 2018-02-28 20:19 | MB ---
cc: Sergio Quiros MD, PhD DATE: 02/28/2018 REASON FOR CONSULTATION: Hand numbness. HISTORY OF PRESENT ILLNESS: This is a pleasant 47-year-old man with HIV positive, COPD, hepatitis B admitted with sepsis and cellulitis. He complains of the past 2-3 days numbness in his hands. NEUROLOGIC EXAMINATION: He is alert and oriented. Speech is normal. Cranial nerves intact. Motor exam 5/5 strength of all groups. Sensory exam is diminished in bilateral median nerve distributions. He has got Tinel signs present at both wrists. Reflexes are symmetric. IMPRESSION: I believe this is bilateral carpal tunnel syndrome. RECOMMENDATIONS: Could try physical therapy consult for wrist splints. Once he is discharged outpatient EMG nerve conduction testing would be beneficial. Sergio Quiros MD, PhD OSMANY/rt , 07:35 PM , 08:18 PM
[2018-03-01] VITALS (7 sets, daily range): BP systolic 123–151; BP diastolic 80–87; PULSE 69–82; RESP 17–20; TEMP 97.7–98.3; O2SAT 93–95
[2018-03-01] MEDS: ACETAMINOPHEN 325 MG TAB PO PRN ×2 (02:11→15:53)
[2018-03-01] MEDS: NS + KCL 20 MEQ INJ 1,000 ML IV SCH ×2 (02:12→06:09)
[2018-03-01] MEDS: SULFAMETHOXAZOLE-TRIMETHOPRIM DS 800-160 MG TAB PO SCH ×3 (03:32→21:11)
[2018-03-01] MEDS: VANCOMYCIN INJ 1,750 MG in SODIUM CHLORID 0.9% 500 ML INJ 500 ML IV SCH ×2 (06:09→21:05)
[2018-03-01] MEDS: NYSTATIN SUSP 500,000 U/5 ML CUP SWISH-SWAL SCH ×4 (08:23→21:00)
[2018-03-01] MEDS: DOCUSATE SODIUM 50 MG/SENNA 8.6 MG TAB PO SCH ×2 (08:23→21:00)
[2018-03-01] MEDS: SODIUM CHLORIDE 0.9% FLUSH 10 ML FLUSH IV FLUSH SCH ×2 (08:26→21:10)
[2018-03-01] MEDS: RESP: ALBUTEROL 2.5 MG/IPRATROPIUM 0.5 MG NEB (SCH) NEB ×3 (09:17→20:00)
--- NOTE | 2018-03-01 12:24 | HHI.PR ---
Subjective Remarks Patient says he is feeling all right. Denies any chest pain. Reports shortness of breath improving slightly. Feels like he may be able to go home tomorrow. Objective Vital Signs Date Time Temp Pulse Resp B/P (MAP) Pulse Ox O2 Delivery O2 Flow Rate FiO2 03/01/18 12:00 97.8 70 18 123/83 (96) 95 03/01/18 09:19 93 03/01/18 08:00 97.8 69 18 151/86 (107) 93 03/01/18 04:00 98.3 82 20 132/84 (100) 94 03/01/18 00:00 98.1 79 20 138/87 (104) 93 02/28/18 20:00 98.3 85 18 137/88 (104) 92 02/28/18 14:58 98.1 81 20 144/78 (100) 94 I/O 02/28/18 02/28/18 02/28/18 03/01/18 03/01/18 03/01/18 07:00 15:00 23:00 07:00 15:00 23:00 Intake Total 1950 ml 600 ml 2052 ml Output Total 700 ml 1100 ml 1450 ml Balance 1250 ml -500 ml 602 ml Intake Oral 950 ml 600 ml IV Total 1000 ml 2052 ml Output Urine Total 700 ml 1100 ml 1450 ml # Voids 2 # Bowel Movements 0 Result Diagram: 02/28/1871102/28/18 07 Objective Remarks GENERAL: Patient lying in bed. Appears comfortable. SKIN: Warm and dry. HEAD: Normocephalic. EYES: No scleral icterus. No injection or drainage. NECK: Supple, trachea midline. No JVD. CARDIOVASCULAR: Regular rate and rhythm without murmurs, gallops, or rubs. RESPIRATORY: Breath sounds equal bilaterally. No accessory muscle use. GASTROINTESTINAL: Abdomen soft, non-tender, nondistended. MUSCULOSKELETAL: No cyanosis, or edema. Neurologic. Bilateral hands with sensation intact. Strength 4 out of 5 bilateral upper extremities. no Change on exam BACK: Nontender without obvious deformity. No CVA tenderness. A/P Assessment and Plan //Sepsis/Cellulitis Patient tachycardic with white blood cell count of 3.3, lactic acid elevated to 2.3 Vancomycin/Zosyn Blood cultures pending CT of the abdomen/pelvis showed a periumbilical fat-containing hernia is unchanged from previous Hernia skin red and warm to the touch with central area of crusted ulceration - possible source Chest x-ray negative for acute process Head CT pending Infectious disease consulted, appreciate assistance = Patient continues tachycardic, tachypneic. Last fever 101.5 yesterday evening. Continue on broad-spectrum antibiotics. Pending cultures. Negative at this time. Appreciate ID assistance. Repeat CBC pending. = No fevers in the past 24 hours. Appreciate ID assistance. Continue IV antibiotics as per ID = Shortness of breath improving. Patient feels like he might be able to go home tomorrow. //Pancytopenia. Likely secondary to HIV. Continue to monitor. If continues, will consult hematology. // HIV CD4 count 296 on 07/16/17 Repeat CD4 count pending Patient not currently taking antiretroviral medication = CD4 count 10. Appreciate ID assistance. //Bilateral hand numbness. Consult neurology. = Likely carpal tunnel. Appreciate neurology assistance. OT for braces. //Thrush -Improving. Nystatin swish/swallow // COPD DuoNeb's // Hepatitis C Follow-up with outpatient //Bipolar disorder/depression Patient not currently on any medications Consult psych as needed = No signs of acute exacerbation at this time. // Hypokalemia IV fluids with supplemental potassium Status post by mouth supplementation Monitor BMP = Resolved on repeat testing. FEN Regular diet Electrolytes: as above Discharge Planning Continue treatment for sepsis. Possibly home tomorrow. We will need ID clearance Shabbir Talbert MD Mar 01, 2018 12:24
[2018-03-01 13:22] LABS: AUTOMATED NEUTROPHIL # 1.1 TH/MM3 (1.8-7.7); BASOPHIL % 1.1 % (0.0-2.0); EOSINOPHIL # 0.4 TH/MM3 (0-0.4); EOSINOPHIL % 16.8 % (0.0-4.0); HEMATOCRIT 35.5 % (39.0-51.0); HEMOGLOBIN 12.4 GM/DL (13.0-17.0); LYMPH % 27.3 % (9.0-44.0); LYMPHOCYTE # 0.7 TH/MM3 (1.0-4.8); MEAN CELL VOLUME 86.3 FL (80.0-100.0); MEAN CORPUSCULAR HEMOGLOBIN 30.1 PG (27.0-34.0); MEAN CORPUSCULAR HGB CONC 34.9 % (32.0-36.0); MEAN PLATELET VOLUME 8.2 FL (7.0-11.0); MONO % 9.5 % (0.0-8.0); MONOCYTE # 0.2 TH/MM3 (0-0.9); NEUT % 45.3 % (16.0-70.0); PLATELET COUNT 81 TH/MM3 (150-450); RED BLOOD COUNT 4.12 MIL/MM3 (4.50-5.90); RED CELL DISTRIBUTION WIDTH 14.2 % (11.6-17.2); WHITE BLOOD COUNT 2.4 TH/MM3 (4.0-11.0)
[2018-03-01 13:38] LABS: ALBUMIN 2.9 GM/DL (3.4-5.0); ALT (GPT) 34 U/L (12-78); AST (GOT) 45 U/L (15-37); BICARBONATE 26.5 MEQ/L (21.0-32.0); BLOOD UREA NITROGEN 5 MG/DL (7-18); CHLORIDE 115 MEQ/L (98-107); GLUCOSE,RANDOM 78 MG/DL (74-106); SODIUM (NA) 146 MEQ/L (136-145)
[2018-03-01 13:44] LABS: ALKALINE PHOSPHATASE 35 U/L (45-117); CREATININE 0.77 MG/DL (0.60-1.30); GLOMERULAR FILTRATION RATE 108 ML/MIN (>89); TOTAL BILIRUBIN ADULT 0.5 MG/DL (0.2-1.0); TOTAL PROTEIN 7.2 GM/DL (6.4-8.2)
[2018-03-01 13:46] LABS: OVALOCYTES 1+ (NORMAL)
--- NOTE | 2018-03-01 17:34 | HHI.IDPN ---
Note Infectious Disease Note Patient notes that he still has headache. Notes he has headache located at the area around his left eye. He denies visual problems. Temperature is improved. Still has cough. Sputum culture result pending. Still notes that he feels weak and achy. CD4 count is less than 20. The white blood cell count is low. Echo bacterial blood culture pending. Patient presented to the emergency department with coughing and generalized weakness. The patient reports to me that he has been sick for 1-1/2 months. The patient has not taken HIV medications for 2 years. He moved from [place] to [place] 2 years ago and did not get medical followup for continuing HIV management. PAST MEDICAL HISTORY: Hepatitis C, cirrhosis of the liver, COPD, bipolar, depression, HIV disease, history of IV drug abuse, umbilical hernia. ALLERGIES: HALOPERIDOL. MEDICATIONS: Current Medications Medications (Trade) Dose Ordered Sig/Michelle Route PRN Reason Start Time Stop Time Status Last Admin Dose Admin Pharmacy Profile Note 0 ml @ 0 mls/hr UNSCH OTHER 02/26/18 02:45 Nystatin (Mycostatin Liq) 5 ml QID SWISH-SWAL 02/26/18 09:00 03/01/18 08:23 Sodium Chloride (NS Flush) 2 ml UNSCH PRN IV FLUSH FLUSH AFTER USING IV ACCESS 02/26/18 02:45 Sodium Chloride (NS Flush) 2 ml BID IV FLUSH 02/26/18 09:00 02/27/18 08:03 Acetaminophen (Tylenol) 650 mg Q4H PRN PO TEMP > 100.4, SEXTON 02/26/18 02:45 03/01/18 15:53 Ondansetron HCl (Zofran Inj) 4 mg Q6H PRN IVP NAUSEA OR VOMITING 02/26/18 02:45 02/26/18 05:58 Naloxone HCl (Narcan Inj) 0.4 mg UNSCH PRN IV PUSH SEE LABEL COMMENTS 02/26/18 02:45 Senna/Docusate Sodium (Misa-Colace) 1 tab BID PO 02/26/18 09:00 03/01/18 08:23 Magnesium Hydroxide (Milk Of Magnesia Liq) 30 ml Q12H PRN PO Mild constipation 02/26/18 02:45 Sennosides (Senokot) 17.2 mg Q12H PRN PO Moderate constipation 02/26/18 02:45 Bisacodyl (Dulcolax Supp) 10 mg DAILY PRN RECTAL SEVERE CONSITIPATION 02/26/18 02:45 Lactulose (Lactulose Liq) 30 ml DAILY PRN PO SEVERE CONSITIPATION 02/26/18 02:45 02/28/18 20:27 Albuterol/ Ipratropium (Duoneb Neb) 1 ampule Q6HR WHILE AWAKE NEB NEB 02/26/18 20:00 03/01/18 13:10 Albuterol/ Ipratropium (Duoneb Neb) 1 ampule Q4HR NEB PRN NEB dyspnea 02/26/18 15:45 Trimethoprim/ Sulfamethoxazole (Bactrim Ds 800-160 Mg) 1 tab Q8H PO 02/27/18 12:00 03/01/18 12:07 Miscellaneous Information SPECIFIC LAB TO BE MAGUE... ONCE ONCE .XX 03/01/18 17:45 03/01/18 17:46 Vancomycin HCl 1750 mg/Sodium Chloride 517.5 ml @ 257.5 mls/ hr Q12H IV 02/28/18 18:00 03/01/18 06:09 SOCIAL HISTORY: History of IV drug abuse, but denies IV drug use in the past 6 months. He smokes half a pack of cigarettes a day. Denies alcohol use. Objective: Vital Signs Date Time Temp Pulse Resp B/P (MAP) Pulse Ox O2 Delivery O2 Flow Rate FiO2 03/01/18 15:55 97.7 78 18 134/81 (98) 93 03/01/18 12:00 97.8 70 18 123/83 (96) 95 03/01/18 09:19 93 03/01/18 08:00 97.8 69 18 151/86 (107) 93 03/01/18 04:00 98.3 82 20 132/84 (100) 94 03/01/18 00:00 98.1 79 20 138/87 (104) 93 02/28/18 20:00 98.3 85 18 137/88 (104) 92 Laboratory Tests Test 02/28/18 07:12 03/01/18 13:00 White Blood Count 2.8 TH/MM3 2.4 TH/MM3 Red Blood Count 3.95 MIL/MM3 4.12 MIL/MM3 Hemoglobin 12.1 GM/DL 12.4 GM/DL Hematocrit 34.1 % 35.5 % Mean Corpuscular Volume 86.2 FL 86.3 FL Mean Corpuscular Hemoglobin 30.7 PG 30.1 PG Mean Corpuscular Hemoglobin Concent 35.6 % 34.9 % Red Cell Distribution Width 14.2 % 14.2 % Platelet Count 67 TH/MM3 81 TH/MM3 Mean Platelet Volume 8.4 FL 8.2 FL Neutrophils (%) (Auto) 49.7 % 45.3 % Lymphocytes (%) (Auto) 23.4 % 27.3 % Monocytes (%) (Auto) 9.3 % 9.5 % Eosinophils (%) (Auto) 16.9 % 16.8 % Basophils (%) (Auto) 0.7 % 1.1 % Neutrophils # (Auto) 1.4 TH/MM3 1.1 TH/MM3 Lymphocytes # (Auto) 0.7 TH/MM3 0.7 TH/MM3 Monocytes # (Auto) 0.3 TH/MM3 0.2 TH/MM3 Eosinophils # (Auto) 0.5 TH/MM3 0.4 TH/MM3 Basophils # (Auto) 0.0 TH/MM3 0.0 TH/MM3 CBC Comment AUTO DIFF AUTO DIFF Differential Comment AUTO DIFF CONFIRMED AUTO DIFF CONFIRMED Platelet Estimate LOW LOW Platelet Morphology Comment NORMAL NORMAL Ovalocytes 1+ 1+ Laboratory Tests Test 02/28/18 07:12 03/01/18 13:00 Blood Urea Nitrogen 7 MG/DL 5 MG/DL Creatinine 0.73 MG/DL 0.77 MG/DL Random Glucose 81 MG/DL 78 MG/DL Albumin 2.5 GM/DL 2.9 GM/DL Calcium Level 7.5 MG/DL 8.0 MG/DL Phosphorus Level 2.2 MG/DL Magnesium Level 1.8 MG/DL Sodium Level 145 MEQ/L 146 MEQ/L Potassium Level 3.8 MEQ/L 3.8 MEQ/L Chloride Level 115 MEQ/L 115 MEQ/L Carbon Dioxide Level 24.4 MEQ/L 26.5 MEQ/L Anion Gap 6 MEQ/L 5 MEQ/L Estimat Glomerular Filtration Rate 115 ML/MIN 108 ML/MIN Total Protein 7.2 GM/DL Alkaline Phosphatase 35 U/L Aspartate Amino Transf (AST/SGOT) 45 U/L Alanine Aminotransferase (ALT/SGPT) 34 U/L Total Bilirubin 0.5 MG/DL Microbiology Date/Time Source Procedure Growth Status 03/01/18 06:30 Sputum Expectorated Sputum Gram Stain - Final Resulted 03/01/18 06:30 Sputum Expectorated Sputum Sputum Culture Pending Resulted Vital Signs Date Time Temp Pulse Resp B/P (MAP) Pulse Ox O2 Delivery O2 Flow Rate FiO2 02/27/18 09:18 97.7 103 20 122/57 (78) 91 02/27/18 08:32 91 21 02/27/18 04:00 98.1 86 19 132/60 (84) 93 02/27/18 00:07 99.5 103 22 119/60 (79) 92 02/26/18 20:18 96 Nasal Cannula 2.00 02/26/18 20:00 99.0 102 22 106/53 (70) 92 02/26/18 16:33 101.5 113 18 127/85 (99) 94 02/26/18 11:55 103 18 102/65 (77) 98 Nasal Cannula 2.00 Laboratory Tests Test 02/25/18 21:30 02/27/18 08:00 White Blood Count 3.3 TH/MM3 2.6 TH/MM3 Red Blood Count 4.33 MIL/MM3 3.98 MIL/MM3 Hemoglobin 13.1 GM/DL 11.9 GM/DL Hematocrit 37.3 % 34.4 % Mean Corpuscular Volume 86.0 FL 86.5 FL Mean Corpuscular Hemoglobin 30.1 PG 30.0 PG Mean Corpuscular Hemoglobin Concent 35.0 % 34.7 % Red Cell Distribution Width 13.9 % 14.3 % Platelet Count 102 TH/MM3 77 TH/MM3 Mean Platelet Volume 8.6 FL 8.7 FL Neutrophils (%) (Auto) 64.2 % 59.3 % Lymphocytes (%) (Auto) 19.5 % 14.2 % Monocytes (%) (Auto) 11.5 % 12.4 % Eosinophils (%) (Auto) 3.9 % 13.5 % Basophils (%) (Auto) 0.9 % 0.6 % Neutrophils # (Auto) 2.1 TH/MM3 1.6 TH/MM3 Lymphocytes # (Auto) 0.6 TH/MM3 0.4 TH/MM3 Monocytes # (Auto) 0.4 TH/MM3 0.3 TH/MM3 Eosinophils # (Auto) 0.1 TH/MM3 0.4 TH/MM3 Basophils # (Auto) 0.0 TH/MM3 0.0 TH/MM3 CBC Comment DIFF FINAL AUTO DIFF Differential Comment Laboratory Tests Test 02/25/18 21:30 02/25/18 21:40 02/26/18 00:05 02/27/18 07:00 Blood Urea Nitrogen 11 MG/DL 10 MG/DL Creatinine 0.98 MG/DL 0.87 MG/DL Random Glucose 91 MG/DL 77 MG/DL Total Protein 8.3 GM/DL 6.6 GM/DL Albumin 3.3 GM/DL Calcium Level 8.3 MG/DL 7.3 MG/DL Magnesium Level 1.5 MG/DL Alkaline Phosphatase 45 U/L Aspartate Amino Transf (AST/SGOT) 81 U/L Alanine Aminotransferase (ALT/SGPT) 59 U/L Total Bilirubin 0.5 MG/DL Sodium Level 141 MEQ/L 142 MEQ/L Potassium Level 2.9 MEQ/L 3.9 MEQ/L Chloride Level 110 MEQ/L 112 MEQ/L Carbon Dioxide Level 25.2 MEQ/L 20.5 MEQ/L Anion Gap 6 MEQ/L 10 MEQ/L Estimat Glomerular Filtration Rate 82 ML/MIN 94 ML/MIN Lactate Dehydrogenase 242 U/L Total Creatine Kinase 151 U/L Creatine Kinase MB 0.7 NG/ML Troponin I LESS THAN 0.02 NG/ML Lipase 168 U/L Lactic Acid Level 2.3 mmol/L 0.9 mmol/L Protein Corrected Calcium 7.6 MG/DL Microbiology Date/Time Source Procedure Growth Status 02/26/18 15:50 Blood Peripheral Mycobacterial Culture Pending Received 02/25/18 21:40 Blood Peripheral Aerobic Blood Culture - Preliminary NO GROWTH IN 1 DAY Resulted 02/25/18 21:40 Blood Peripheral Anaerobic Blood Culture - Preliminary NO GROWTH IN 1 DAY Resulted 02/25/18 21:35 Blood Peripheral Aerobic Blood Culture - Preliminary NO GROWTH IN 1 DAY Resulted 02/25/18 21:35 Blood Peripheral Anaerobic Blood Culture - Preliminary NO GROWTH IN 1 DAY Resulted Imaging: Chest X-Ray 02/27/18 0000 Signed Impressions: Service Date/Time: Tuesday, February 27, 2018 13:37 - CONCLUSION: No acute disease. Elias Reynolds MD FACR Head CT 02/26/18 0105 Signed Impressions: Service Date/Time: Monday, February 26, 2018 01:59 - CONCLUSION: No acute intracranial disease. Serge Del Toro MD Abdomen/Pelvis CT 02/25/18 [id number] Signed Impressions: Service Date/Time: Monday, February 26, 2018 00:09 - CONCLUSION: 1. No acute inflammatory process. 2. Nonobstructing left-sided renal calculi. 3. Bilateral renal cysts. 4. Periumbilical fat-containing hernia unchanged. Serge Del Toro MD PHYSICAL EXAMINATION: GENERAL: No acute distress. He looks chronically ill. HEENT: Head is atraumatic. Extraocular movements grossly intact. Pupils reactive to light. No icterus. Oropharynx moist mucosa. Erythema of the tongue. No thrush. NECK: Supple without adenopathy or swelling. LUNGS: Decreased breath sounds. HEART: Regular S1, S2. No audible murmurs. ABDOMEN: Bowel sounds present, soft, no tenderness appreciated. Abdomen is obese. There has a bulging umbilical hernia, which has erythema and a dry area of excoriation. The erythema blanches. GENITOURINARY: Normal genitalia. EXTREMITIES: No clubbing, cyanosis or edema. SKIN: Skin rash has faded. Still has some erythema at the neck. NEUROLOGIC: No gross focal findings. PSYCHIATRIC: Calm and cooperative. IMPRESSION: 1. Sepsis indicated by fever, tachycardia, lactic acid elevation, leukopenia. Questionable etiology. 2. Human immunodeficiency virus immunosuppression. 3. Diffuse macular rash, which may be drug related. Rash has improved. Piperacillin/tazobactam was discontinued. 4. Cough. Possible related to pneumonia. Possible opportunistic infection in this patient who has human immune deficiency disease disease and may be severely immunosuppressed and has not been on antiviral medication. The chest x-ray did not look remarkable. However sometimes with PJP pneumonia, the chest x-ray may not be remarkable. Patient appears to be showing improvement. RECOMMENDATIONS: 1. Continue vancomycin. 2. Continue the Bactrim for PJP. 3. Monitor the white blood cell count. If the white blood cell count diminishes further we will need to stop the Bactrim. 4. Follow blood culture AFB culture. 5. Monitor blood culture. 6. If the white blood cell count continues to diminish he may need to be put on Neupogen. Patient will need to follow-up with the have department for reinstating HIV medicines and management since he has very low CD4 count and is at risk for opportunistic infections. Follow the cultures and clinical status over the weekend and hopefully we can taper antibiotics and plan on regimen for discharge by Sunday. Pop Toribio MD Mar 01, 2018 17:34
[2018-03-01] MEDS ORDERED: PHARMACY ORDERED LAB ONE (17:45)
[2018-03-02] VITALS: BP 130/67; PULSE 67; RESP 18; TEMP 97.6; O2SAT 95
[2018-03-02 05:30] LABS: AUTOMATED NEUTROPHIL # 1.2 TH/MM3 (1.8-7.7); BASOPHIL % 1.5 % (0.0-2.0); EOSINOPHIL # 0.4 TH/MM3 (0-0.4); EOSINOPHIL % 15.7 % (0.0-4.0); HEMOGLOBIN 12.5 GM/DL (13.0-17.0); LYMPH % 23.1 % (9.0-44.0); LYMPHOCYTE # 0.6 TH/MM3 (1.0-4.8); MEAN CELL VOLUME 85.3 FL (80.0-100.0); MEAN CORPUSCULAR HEMOGLOBIN 30.5 PG (27.0-34.0); MEAN CORPUSCULAR HGB CONC 35.8 % (32.0-36.0); MEAN PLATELET VOLUME 8.2 FL (7.0-11.0); MONO % 11.6 % (0.0-8.0); MONOCYTE # 0.3 TH/MM3 (0-0.9); NEUT % 48.1 % (16.0-70.0); PLATELET COUNT 96 TH/MM3 (150-450); RED CELL DISTRIBUTION WIDTH 14.2 % (11.6-17.2); WHITE BLOOD COUNT 2.5 TH/MM3 (4.0-11.0)
[2018-03-02 06:15] VITALS: BP 120/65; PULSE 62; RESP 18; TEMP 98; O2SAT 95
[2018-03-02 06:16] LABS: ALBUMIN 2.8 GM/DL (3.4-5.0); BICARBONATE 26.4 MEQ/L (21.0-32.0); CALCIUM 8.7 MG/DL (8.5-10.1); CREATININE 0.83 MG/DL (0.60-1.30); MAGNESIUM 1.8 MG/DL (1.5-2.5); PHOSPHORUS 3.3 MG/DL (2.5-4.9)
[2018-03-02] MEDS: SULFAMETHOXAZOLE-TRIMETHOPRIM DS 800-160 MG TAB PO SCH ×3 (06:43→20:41)
[2018-03-02] MEDS: VANCOMYCIN INJ 1,750 MG in SODIUM CHLORID 0.9% 500 ML INJ 500 ML IV SCH ×2 (06:45→18:20)
[2018-03-02] MEDS: RESP: ALBUTEROL 2.5 MG/IPRATROPIUM 0.5 MG NEB (SCH) NEB ×3 (07:43→19:17)
[2018-03-02 08:16] VITALS: BP 141/83; PULSE 75; RESP 18; TEMP 98; O2SAT 95
[2018-03-02] MEDS: NYSTATIN SUSP 500,000 U/5 ML CUP SWISH-SWAL SCH ×4 (08:17→20:41)
[2018-03-02] MEDS: DOCUSATE SODIUM 50 MG/SENNA 8.6 MG TAB PO SCH ×2 (08:17→20:42)
[2018-03-02] MEDS: SODIUM CHLORIDE 0.9% FLUSH 10 ML FLUSH IV FLUSH SCH ×2 (08:18→20:42)
[2018-03-02 08:29] LABS: OVALOCYTES 1+ (NORMAL)
[2018-03-02] MEDS: ACETAMINOPHEN 325 MG TAB PO PRN ×2 (11:57→20:42)
[2018-03-02 12:12] VITALS: BP 120/87; PULSE 82; RESP 18; TEMP 98.3; O2SAT 94
--- NOTE | 2018-03-02 17:04 | HHI.PR ---
Subjective Remarks Patient says he is feeling better again today. Shortness of breath improved. He is not sure about going home. Objective Vital Signs Date Time Temp Pulse Resp B/P (MAP) Pulse Ox O2 Delivery O2 Flow Rate FiO2 03/02/18 12:12 98.3 82 18 120/87 (98) 94 03/02/18 08:16 98.0 75 18 141/83 (102) 95 03/02/18 06:15 98.0 62 18 120/65 (83) 95 03/02/18 00:00 97.6 67 18 130/67 (88) 95 03/01/18 20:00 97.8 70 17 136/80 (98) 94 I/O 03/01/18 03/01/18 03/01/18 03/02/18 03/02/18 03/02/18 07:00 15:00 23:00 07:00 15:00 23:00 Intake Total 2672 ml 800 ml 900 ml 1517.5 ml Output Total 1450 ml Balance 1222 ml 800 ml 900 ml 1517.5 ml Intake Oral 800 ml 900 ml IV Total 2672 ml 1517.5 ml Output Urine Total 1450 ml # Voids 1 4 # Bowel Movements 1 0 0 Result Diagram: 03/02/18 0512 03/02/18 0512 Objective Remarks GENERAL: Patient lying in bed. Appears comfortable. SKIN: Warm and dry. HEAD: Normocephalic. EYES: No scleral icterus. No injection or drainage. NECK: Supple, trachea midline. No JVD. CARDIOVASCULAR: Regular rate and rhythm without murmurs, gallops, or rubs. RESPIRATORY: Breath sounds equal bilaterally. No accessory muscle use. GASTROINTESTINAL: Abdomen soft, non-tender, nondistended. MUSCULOSKELETAL: No cyanosis, or edema. Neurologic. Bilateral hands with sensation intact. Strength 4 out of 5 bilateral upper extremities. no Change on exam BACK: Nontender without obvious deformity. No CVA tenderness. A/P Assessment and Plan //Sepsis/Cellulitis Patient tachycardic with white blood cell count of 3.3, lactic acid elevated to 2.3 Vancomycin/Zosyn Blood cultures pending CT of the abdomen/pelvis showed a periumbilical fat-containing hernia is unchanged from previous Hernia skin red and warm to the touch with central area of crusted ulceration - possible source Chest x-ray negative for acute process Head CT pending Infectious disease consulted, appreciate assistance = Patient continues tachycardic, tachypneic. Last fever 101.5 yesterday evening. Continue on broad-spectrum antibiotics. Pending cultures. Negative at this time. Appreciate ID assistance. Repeat CBC pending. = No fevers in the past 24 hours. Appreciate ID assistance. Continue IV antibiotics as per ID = Shortness of breath continues improving. Will need infectious disease clearance. //Pancytopenia. Likely secondary to HIV. Continue to monitor. If continues, will consult hematology. = Neutrophil count stable at 1.2. If worsens, will consult hematology for possible Neupogen. // HIV CD4 count 296 on 07/16/17 Repeat CD4 count pending Patient not currently taking antiretroviral medication = CD4 count 10. Appreciate ID assistance. //Bilateral hand numbness. Consult neurology. = Likely carpal tunnel. Appreciate neurology assistance. OT for braces. = Improved. //Thrush -Improving. Nystatin swish/swallow // COPD DuoNeb's // Hepatitis C Follow-up with outpatient //Bipolar disorder/depression Patient not currently on any medications Consult psych as needed = No signs of acute exacerbation at this time. // Hypokalemia IV fluids with supplemental potassium Status post by mouth supplementation Monitor BMP = Resolved on repeat testing. FEN Regular diet Electrolytes: as above Discharge Planning Continue treatment for sepsis. Likely home on Sunday after infectious disease workup. Will need infectious disease clearance. Shabbir Talbert MD Mar 02, 2018 17:04
[2018-03-02] MEDS ORDERED: PHARMACY ORDERED LAB ONE (17:45)
[2018-03-02 20:39] VITALS: BP 140/96; PULSE 74; RESP 18; TEMP 98.3; O2SAT 95
[2018-03-02 21:31] VITALS: O2SAT 97
[2018-03-03 01:15] VITALS: BP 125/56; PULSE 70; RESP 18; TEMP 98.1; O2SAT 91
[2018-03-03] MEDS: SULFAMETHOXAZOLE-TRIMETHOPRIM DS 800-160 MG TAB PO SCH ×3 (04:55→20:53)
[2018-03-03] MEDS: VANCOMYCIN INJ 1,750 MG in SODIUM CHLORID 0.9% 500 ML INJ 500 ML IV SCH ×2 (04:55→16:00)
[2018-03-03 05:13] VITALS: BP 144/72; PULSE 68; RESP 18; TEMP 97.3; O2SAT 93
[2018-03-03 08:15] VITALS: BP 152/88; PULSE 81; RESP 18; TEMP 97.9; O2SAT 94
[2018-03-03 08:33] LABS: BICARBONATE 23.9 MEQ/L (21.0-32.0); CALCIUM 8.3 MG/DL (8.5-10.1); CREATININE 0.78 MG/DL (0.60-1.30); MAGNESIUM 1.8 MG/DL (1.5-2.5); PHOSPHORUS 2.7 MG/DL (2.5-4.9)
[2018-03-03] MEDS: ACETAMINOPHEN 325 MG TAB PO PRN (08:53)
[2018-03-03] MEDS: DOCUSATE SODIUM 50 MG/SENNA 8.6 MG TAB PO SCH ×2 (08:53→20:54)
[2018-03-03] MEDS: SODIUM CHLORIDE 0.9% FLUSH 10 ML FLUSH IV FLUSH SCH ×2 (08:54→20:54)
[2018-03-03] MEDS: NYSTATIN SUSP 500,000 U/5 ML CUP SWISH-SWAL SCH ×4 (08:55→20:54)
[2018-03-03 09:50] LABS: AUTOMATED NEUTROPHIL # 1.6 TH/MM3 (1.8-7.7); BASOPHIL % 1.1 % (0.0-2.0); EOSINOPHIL # 0.4 TH/MM3 (0-0.4); EOSINOPHIL % 11.8 % (0.0-4.0); HEMATOCRIT 36.6 % (39.0-51.0); HEMOGLOBIN 13.4 GM/DL (13.0-17.0); LYMPH % 20.1 % (9.0-44.0); LYMPHOCYTE # 0.6 TH/MM3 (1.0-4.8); MEAN CELL VOLUME 83.8 FL (80.0-100.0); MEAN CORPUSCULAR HEMOGLOBIN 30.5 PG (27.0-34.0); MEAN PLATELET VOLUME 8.5 FL (7.0-11.0); MONO % 16.2 % (0.0-8.0); MONOCYTE # 0.5 TH/MM3 (0-0.9); NEUT % 50.8 % (16.0-70.0); PLATELET COUNT 91 TH/MM3 (150-450); RED BLOOD COUNT 4.37 MIL/MM3 (4.50-5.90); RED CELL DISTRIBUTION WIDTH 14.2 % (11.6-17.2); WHITE BLOOD COUNT 3.1 TH/MM3 (4.0-11.0)
[2018-03-03 09:54] LABS: MEAN CORPUSCULAR HGB CONC 36.4 % (32.0-36.0)
[2018-03-03 10:26] LABS: OVALOCYTES 1+ (NORMAL)
[2018-03-03 12:16] VITALS: BP 122/80; PULSE 67; RESP 18; TEMP 97.8; O2SAT 94
[2018-03-03] MEDS: IBUPROFEN 400 MG TAB PO PRN ×2 (12:51→20:54)
--- NOTE | 2018-03-03 14:59 | HHI.PR ---
Subjective Remarks Patient says he is feeling all right. Denies any chest pain shortness of breath. Denies any nausea or vomiting. Objective Vital Signs Date Time Temp Pulse Resp B/P (MAP) Pulse Ox O2 Delivery O2 Flow Rate FiO2 03/03/18 13:45 16 03/03/18 12:52 16 03/03/18 12:16 97.8 67 18 122/80 (94) 94 03/03/18 08:15 97.9 81 18 152/88 (109) 94 03/03/18 05:13 97.3 68 18 144/72 (96) 93 03/03/18 01:15 98.1 70 18 125/56 (79) 91 03/02/18 21:31 97 21 03/02/18 20:39 98.3 74 18 140/96 (111) 95 I/O 03/02/18 03/02/18 03/02/18 03/03/18 03/03/18 03/03/18 07:00 15:00 23:00 07:00 15:00 23:00 Intake Total 900 ml 1517.5 ml Output Total 200 ml Balance 900 ml 1517.5 ml -200 ml Intake Oral 900 ml IV Total 1517.5 ml Output Urine Total 200 ml # Voids 4 # Bowel Movements 0 Result Diagram: 03/03/18 0915 03/03/18 0543 Objective Remarks GENERAL: Patient lying in bed. Appears comfortable. SKIN: Warm and dry. HEAD: Normocephalic. EYES: No scleral icterus. No injection or drainage. NECK: Supple, trachea midline. No JVD. CARDIOVASCULAR: Regular rate and rhythm without murmurs, gallops, or rubs. RESPIRATORY: Breath sounds equal bilaterally. No accessory muscle use. GASTROINTESTINAL: Abdomen soft, non-tender, nondistended. MUSCULOSKELETAL: No cyanosis, or edema. Neurologic. Bilateral hands with sensation intact. 5 out of 5 strength in bilateral upper extremities. BACK: Nontender without obvious deformity. No CVA tenderness. A/P Assessment and Plan //Sepsis/Cellulitis Patient tachycardic with white blood cell count of 3.3, lactic acid elevated to 2.3 Vancomycin/Zosyn Blood cultures pending CT of the abdomen/pelvis showed a periumbilical fat-containing hernia is unchanged from previous Hernia skin red and warm to the touch with central area of crusted ulceration - possible source Chest x-ray negative for acute process Head CT pending Infectious disease consulted, appreciate assistance = Patient continues tachycardic, tachypneic. Last fever 101.5 yesterday evening. Continue on broad-spectrum antibiotics. Pending cultures. Negative at this time. Appreciate ID assistance. Repeat CBC pending. = No fevers in the past 24 hours. Appreciate ID assistance. Continue IV antibiotics as per ID = Shortness of breath continues improving. Pending cultures. Will need infectious disease clearance. //Pancytopenia. Likely secondary to HIV. Continue to monitor. If continues, will consult hematology. = Neutrophil count stable at 1.2. If worsens, will consult hematology for possible Neupogen. = 03/03. Neutrophil count improving at 1.6. // HIV CD4 count 296 on 07/16/17 Repeat CD4 count pending Patient not currently taking antiretroviral medication = CD4 count 10. Appreciate ID assistance. //Bilateral hand numbness. Consult neurology. = Likely carpal tunnel. Appreciate neurology assistance. OT for braces. = Improved. //Thrush -Improving. Nystatin swish/swallow // COPD DuoNeb's // Hepatitis C Follow-up with outpatient //Bipolar disorder/depression Patient not currently on any medications Consult psych as needed = No signs of acute exacerbation at this time. = Patient reports that he is on 100 mg of lithium twice daily at home. This was started 1-1/2 weeks prior to admission. Will start on low-dose lithium here. //Bilateral lower extremity peripheral neuropathy. Patient reports he is on 800 mg of gabapentin 3 times daily. We will start on 300 mg 3 times daily here. // Hypokalemia IV fluids with supplemental potassium Status post by mouth supplementation Monitor BMP = Resolved on repeat testing. = 03/03. Potassium 3.4. Replace. FEN Regular diet Electrolytes: as above Discharge Planning Continue treatment for sepsis. Likely home on Sunday after infectious disease workup. Will need infectious disease clearance. Shabbir Talbert MD Mar 03, 2018 14:59
[2018-03-03] MEDS ORDERED: POTASSIUM CHLORIDE 10 MEQ CONTROLLED RELEASE TAB PO ONE (15:00)
[2018-03-03 15:52] VITALS: BP 132/74; PULSE 72; RESP 18; TEMP 97.6; O2SAT 92
[2018-03-03] MEDS: GABAPENTIN 300 MG CAP PO SCH (16:02)
[2018-03-03] MEDS ORDERED: GABA600T PO (16:07)
[2018-03-03] MEDS ORDERED: SERO50TA PO (16:07)
[2018-03-03] MEDS ORDERED: LITH150C PO (16:07)
[2018-03-03 20:00] VITALS: BP 132/80; PULSE 74; RESP 18; TEMP 97.4; O2SAT 94
[2018-03-04 00:59] VITALS: BP 139/79; PULSE 57; RESP 18; TEMP 97.7; O2SAT 94
[2018-03-04 05:15] VITALS: BP 145/86; PULSE 63; RESP 18; TEMP 97.7; O2SAT 96
[2018-03-04] MEDS: SULFAMETHOXAZOLE-TRIMETHOPRIM DS 800-160 MG TAB PO SCH (06:04)
[2018-03-04] MEDS: IBUPROFEN 400 MG TAB PO PRN (06:05)
[2018-03-04] MEDS: VANCOMYCIN INJ 1,750 MG in SODIUM CHLORID 0.9% 500 ML INJ 500 ML IV SCH (06:05)
[2018-03-04 07:46] VITALS: BP 142/84; PULSE 54; RESP 19; TEMP 97.6; O2SAT 95
[2018-03-04] MEDS: NYSTATIN SUSP 500,000 U/5 ML CUP SWISH-SWAL SCH (09:00)
[2018-03-04] MEDS ORDERED: PANTOPRAZOLE SOD 20 MG DELAYED RELEASE TAB PO SCH (09:00)
[2018-03-04] MEDS ORDERED: LITHIUM ORAL SOLUTION 300 MG/5 ML CUP PO SCH (09:00)
[2018-03-04] MEDS: SODIUM CHLORIDE 0.9% FLUSH 10 ML FLUSH IV FLUSH SCH (09:11)
[2018-03-04] MEDS: DOCUSATE SODIUM 50 MG/SENNA 8.6 MG TAB PO SCH (09:11)
[2018-03-04] MEDS: GABAPENTIN 300 MG CAP PO SCH (09:11)
--- NOTE | 2018-03-04 10:28 | HHI.PR ---
Subjective Remarks Patient sitting up in chair playing game on phone. Says he is feeling well. Denies any chest pain or shortness of breath. Says he feels like going home. Objective Vital Signs Date Time Temp Pulse Resp B/P (MAP) Pulse Ox O2 Delivery O2 Flow Rate FiO2 03/04/18 07:46 97.6 54 19 142/84 (103) 95 03/04/18 05:15 97.7 63 18 145/86 (105) 96 03/04/18 00:59 97.7 57 18 139/79 (99) 94 03/03/18 20:00 97.4 74 18 132/80 (97) 94 03/03/18 15:52 97.6 72 18 132/74 (93) 92 03/03/18 13:45 16 03/03/18 12:52 16 03/03/18 12:16 97.8 67 18 122/80 (94) 94 I/O 03/03/18 03/03/18 03/03/18 03/04/18 03/04/18 03/04/18 07:00 15:00 23:00 07:00 15:00 23:00 Output Total 200 ml Balance -200 ml Output Urine Total 200 ml Result Diagram: 03/03/18 0915 03/03/18 0543 Objective Remarks GENERAL: Patient sitting up in chair. Appears comfortable. SKIN: Warm and dry. HEAD: Normocephalic. EYES: No scleral icterus. No injection or drainage. NECK: Supple, trachea midline. No JVD. CARDIOVASCULAR: Regular rate and rhythm without murmurs, gallops, or rubs. RESPIRATORY: Breath sounds equal bilaterally. No accessory muscle use. GASTROINTESTINAL: Abdomen soft, non-tender, nondistended. MUSCULOSKELETAL: No cyanosis, or edema. Neurologic. Bilateral hands with sensation intact. 5 out of 5 strength in bilateral upper extremities. BACK: Nontender without obvious deformity. No CVA tenderness. A/P Assessment and Plan //Sepsis/Cellulitis Patient tachycardic with white blood cell count of 3.3, lactic acid elevated to 2.3 Vancomycin/Zosyn Blood cultures pending CT of the abdomen/pelvis showed a periumbilical fat-containing hernia is unchanged from previous Hernia skin red and warm to the touch with central area of crusted ulceration - possible source Chest x-ray negative for acute process Head CT pending Infectious disease consulted, appreciate assistance = Patient continues tachycardic, tachypneic. Last fever 101.5 yesterday evening. Continue on broad-spectrum antibiotics. Pending cultures. Negative at this time. Appreciate ID assistance. Repeat CBC pending. = No fevers in the past 24 hours. Appreciate ID assistance. Continue IV antibiotics as per ID = Shortness of breath continues improving. Pending cultures. Will need infectious disease clearance. = Patient feels much better. Await ID recommendations regarding discharge. //Pancytopenia. Likely secondary to HIV. Continue to monitor. If continues, will consult hematology. = Neutrophil count stable at 1.2. If worsens, will consult hematology for possible Neupogen. = 03/03. Neutrophil count improving at 1.6. // HIV CD4 count 296 on 07/16/17 Repeat CD4 count pending Patient not currently taking antiretroviral medication = CD4 count 10. Appreciate ID assistance. //Bilateral hand numbness. Consult neurology. = Likely carpal tunnel. Appreciate neurology assistance. OT for braces. = Improved. //Thrush -Improving. Continue nystatin swish/swallow // COPD DuoNeb's // Hepatitis C Follow-up with outpatient //Bipolar disorder/depression Patient not currently on any medications Consult psych as needed = No signs of acute exacerbation at this time. = Patient reports that he is on 100 mg of lithium twice daily at home. This was started 1-1/2 weeks prior to admission. Will start on low-dose lithium here. = Continue low-dose lithium //Bilateral lower extremity peripheral neuropathy. Patient reports he is on 800 mg of gabapentin 3 times daily. We will start on 300 mg 3 times daily here. = Continue 300 mg gabapentin 3 times daily. // Hypokalemia IV fluids with supplemental potassium Status post by mouth supplementation Monitor BMP = Resolved on repeat testing. = 03/03. Potassium 3.4. Replace. FEN Regular diet Electrolytes: as above Discharge Planning Await final ID recommendations regarding discharge. Shabbir Talbert MD Mar 04, 2018 10:28
[2018-03-04 11:38] VITALS: BP 133/83; PULSE 77; RESP 19; TEMP 97.5; O2SAT 96
--- NOTE | 2018-03-04 11:49 | HHI.IDPN ---
Note Infectious Disease Note Patient feels better. Denies headache. Sitting up in chair at bedside. Denies chills. Afebrile. Blood cultures as no growth. Sputum culture has normal liane. CD4 count is less than 20. Patient presented to the emergency department with coughing and generalized weakness. The patient reports to me that he has been sick for 1-1/2 months. The patient has not taken HIV medications for 2 years. He moved from [place] to [place] 2 years ago and did not get medical followup for continuing HIV management. PAST MEDICAL HISTORY: Hepatitis C, cirrhosis of the liver, COPD, bipolar, depression, HIV disease, history of IV drug abuse, umbilical hernia. ALLERGIES: HALOPERIDOL. MEDICATIONS: Current Medications Medications (Trade) Dose Ordered Sig/Michelle Route PRN Reason Start Time Stop Time Status Last Admin Dose Admin Nystatin (Mycostatin Liq) 5 ml QID SWISH-SWAL 02/26/18 09:00 03/01/18 08:23 Sodium Chloride (NS Flush) 2 ml UNSCH PRN IV FLUSH FLUSH AFTER USING IV ACCESS 02/26/18 02:45 Sodium Chloride (NS Flush) 2 ml BID IV FLUSH 02/26/18 09:00 03/04/18 09:11 Acetaminophen (Tylenol) 650 mg Q4H PRN PO TEMP > 100.4, SEXTON 02/26/18 02:45 03/03/18 08:53 Ondansetron HCl (Zofran Inj) 4 mg Q6H PRN IVP NAUSEA OR VOMITING 02/26/18 02:45 02/26/18 05:58 Naloxone HCl (Narcan Inj) 0.4 mg UNSCH PRN IV PUSH SEE LABEL COMMENTS 02/26/18 02:45 Senna/Docusate Sodium (Misa-Colace) 1 tab BID PO 02/26/18 09:00 03/04/18 09:11 Magnesium Hydroxide (Milk Of Magnesia Liq) 30 ml Q12H PRN PO Mild constipation 02/26/18 02:45 Sennosides (Senokot) 17.2 mg Q12H PRN PO Moderate constipation 02/26/18 02:45 Bisacodyl (Dulcolax Supp) 10 mg DAILY PRN RECTAL SEVERE CONSITIPATION 02/26/18 02:45 Lactulose (Lactulose Liq) 30 ml DAILY PRN PO SEVERE CONSITIPATION 02/26/18 02:45 02/28/18 20:27 Albuterol/ Ipratropium (Duoneb Neb) 1 ampule Q4HR NEB PRN NEB dyspnea 02/26/18 15:45 Trimethoprim/ Sulfamethoxazole (Bactrim Ds 800-160 Mg) 1 tab Q8H PO 02/27/18 12:00 03/04/18 06:04 Miscellaneous Information SPECIFIC LAB TO BE DRAWN:VANCO TROUGH DATE TO... ONCE ONCE .XX 03/05/18 17:45 03/05/18 17:46 Ibuprofen (Motrin) 400 mg Q8H PRN PO PAIN SCALE 1 TO 10 03/03/18 12:45 03/04/18 06:05 Pantoprazole Sodium (Protonix) 20 mg DAILY PO 03/04/18 09:00 03/04/18 09:11 [place] Citrate (Cibalith-S Liq) 200 mg DAILY PO 03/04/18 09:00 03/04/18 09:10 Gabapentin (Neurontin) 300 mg TID PO 03/03/18 18:00 03/04/18 09:11 SOCIAL HISTORY: History of IV drug abuse, but denies IV drug use in the past 6 months. He smokes half a pack of cigarettes a day. Denies alcohol use. Objective: Vital Signs Date Time Temp Pulse Resp B/P (MAP) Pulse Ox O2 Delivery O2 Flow Rate FiO2 03/04/18 11:38 97.5 77 19 133/83 (100) 96 03/04/18 07:46 97.6 54 19 142/84 (103) 95 03/04/18 05:15 97.7 63 18 145/86 (105) 96 03/04/18 00:59 97.7 57 18 139/79 (99) 94 03/03/18 20:00 97.4 74 18 132/80 (97) 94 03/03/18 15:52 97.6 72 18 132/74 (93) 92 03/03/18 13:45 16 03/03/18 12:52 16 03/03/18 12:16 97.8 67 18 122/80 (94) 94 Laboratory Tests Test 03/03/18 09:15 White Blood Count 3.1 TH/MM3 Red Blood Count 4.37 MIL/MM3 Hemoglobin 13.4 GM/DL Hematocrit 36.6 % Mean Corpuscular Volume 83.8 FL Mean Corpuscular Hemoglobin 30.5 PG Mean Corpuscular Hemoglobin Concent 36.4 % Red Cell Distribution Width 14.2 % Platelet Count 91 TH/MM3 Mean Platelet Volume 8.5 FL Neutrophils (%) (Auto) 50.8 % Lymphocytes (%) (Auto) 20.1 % Monocytes (%) (Auto) 16.2 % Eosinophils (%) (Auto) 11.8 % Basophils (%) (Auto) 1.1 % Neutrophils # (Auto) 1.6 TH/MM3 Lymphocytes # (Auto) 0.6 TH/MM3 Monocytes # (Auto) 0.5 TH/MM3 Eosinophils # (Auto) 0.4 TH/MM3 Basophils # (Auto) 0.0 TH/MM3 CBC Comment AUTO DIFF Differential Comment AUTO DIFF CONFIRMED Platelet Estimate LOW Platelet Morphology Comment NORMAL Ovalocytes 1+ Laboratory Tests Test 03/03/18 05:43 Blood Urea Nitrogen 14 MG/DL Creatinine 0.78 MG/DL Random Glucose 74 MG/DL Albumin 3.0 GM/DL Calcium Level 8.3 MG/DL Phosphorus Level 2.7 MG/DL Magnesium Level 1.8 MG/DL Sodium Level 141 MEQ/L Potassium Level 3.4 MEQ/L Chloride Level 110 MEQ/L Carbon Dioxide Level 23.9 MEQ/L Anion Gap 7 MEQ/L Estimat Glomerular Filtration Rate 106 ML/MIN Imaging: Chest X-Ray 02/27/18 0000 Signed Impressions: Service Date/Time: Tuesday, February 27, 2018 13:37 - CONCLUSION: No acute disease. Elias Reynolds MD FACR Head CT 02/26/18 0105 Signed Impressions: Service Date/Time: Monday, February 26, 2018 01:59 - CONCLUSION: No acute intracranial disease. Serge Del Toro MD Abdomen/Pelvis CT 02/25/18 2150 Signed Impressions: Service Date/Time: Monday, February 26, 2018 00:09 - CONCLUSION: 1. No acute inflammatory process. 2. Nonobstructing left-sided renal calculi. 3. Bilateral renal cysts. 4. Periumbilical fat-containing hernia unchanged. Serge Del Toro MD PHYSICAL EXAMINATION: GENERAL: No acute distress. Alert and oriented. Looks more energetic. HEENT: Head is atraumatic. Extraocular movements grossly intact. Pupils reactive to light. No icterus. Oropharynx moist mucosa. Erythema of the tongue. No thrush. NECK: Supple without adenopathy or swelling. LUNGS: Clear breath sounds. HEART: Regular S1, S2. No audible murmurs. ABDOMEN: Bowel sounds present, soft, no tenderness appreciated. Abdomen is obese. There has a bulging umbilical hernia, which has erythema and a dry area of excoriation. The erythema blanches. GENITOURINARY: Normal genitalia. EXTREMITIES: No clubbing, cyanosis or edema. SKIN: No rash. Previous erythema at the neck has resolved. NEUROLOGIC: No gross focal findings. PSYCHIATRIC: Calm and cooperative. IMPRESSION: 1. Sepsis indicated by fever, tachycardia, lactic acid elevation, leukopenia. Questionable etiology. 2. Human immunodeficiency virus immunosuppression. 3. Diffuse macular rash, which may be drug related. Rash has improved. Piperacillin/tazobactam was discontinued. 4. Cough. Possible related to pneumonia. Possible opportunistic infection in this patient who has human immune deficiency disease disease and may be severely immunosuppressed and has not been on antiviral medication. I suspect he may have PJP pneumonia and is responding to the Bactrim. He has showed dramatic improvement since admission. RECOMMENDATIONS: 1. Stop vancomycin. 2. Continue the Bactrim for PJP another 2 weeks with a dose of 1 tablet double strength every 8 hours. 3. CBC to follow the white blood cell count as outpatient 4. Azithromycin p.o. 1200 mg weekly since his CD4 count is less than 200. Patient will follow up with [facility]. He can get a referral from [facility] to follow-up with an HIV physician. Okay to discuss charge from ID standpoint. Pop Toribio MD Mar 04, 2018 11:49
[2018-03-04] MEDS ORDERED: SULF1TAB23 PO (13:05)
[2018-03-04] MEDS ORDERED: AZIT600T PO (13:05)
[2018-03-04] MEDS ORDERED: Nystatin Liq SWISH-SWAL (13:05)
--- NOTE | 2018-03-04 13:12 | HHI.DS ---
Discharge Summary Admission Date Feb 26, 2018 at 00:22 Discharge Date: Mar 04, 2018 Admitting Diagnosis Sepsis, immunocompromised state (1) HIV (human immunodeficiency virus infection) ICD Code: B20 - Human immunodeficiency virus [HIV] disease Status: Acute (2) Bronchitis ICD Code: J40 - Bronchitis, not specified as acute or chronic Status: Acute (3) SIRS (systemic inflammatory response syndrome) ICD Code: R65.10 - Systemic inflammatory response syndrome (SIRS) of non- infectious origin without acute organ dysfunction (4) Carpal tunnel syndrome ICD Code: G56.00 - Carpal tunnel syndrome, unspecified upper limb (5) Hypokalemia ICD Code: E87.6 - Hypokalemia Procedures none Brief History - From Admission 47-year-old male with a past medical history significant for HIV, COPD, hepatitis C and depression/anxiety presents to the emergency department with a chief complaint of not feeling well for the past 1-1/2 months. He reports he has had a productive cough, headache, shortness of breath, weakness, fatigue and sores all over his body. He also complains of intermittent fever/chills. The patient reports he is "very sick." The patient does not follow with infectious disease specialist and reports that his last CD4 count was 9 couple of years ago. Per hospital records, the patient's CD4 count was 296 on . He also complains of a painful umbilical hernia which he states has been red and tender for several weeks. He is unsure if he has had any drainage from the area but does have an area of central ulceration and crusting. He denies any chest pain. No nausea/vomiting/diarrhea. CBC/BMP: 03/03/18 0915 03/03/18 0543 Significant Findings Laboratory Tests Test 03/01/18 18:50 03/02/18 05:12 03/02/18 17:20 03/03/18 05:43 Vancomycin Level Trough 13.2 MCG/ML (5.0-10.0) 15.2 MCG/ML (5.0-10.0) White Blood Count 2.5 TH/MM3 (4.0-11.0) Red Blood Count 4.10 MIL/MM3 (4.50-5.90) Hemoglobin 12.5 GM/DL (13.0-17.0) Hematocrit 35.0 % (39.0-51.0) Platelet Count 96 TH/MM3 (150-450) Monocytes (%) (Auto) 11.6 % (0.0-8.0) Eosinophils (%) (Auto) 15.7 % (0.0-4.0) Neutrophils # (Auto) 1.2 TH/MM3 (1.8-7.7) Lymphocytes # (Auto) 0.6 TH/MM3 (1.0-4.8) Platelet Estimate LOW (NORMAL) Ovalocytes 1+ (NORMAL) Albumin 2.8 GM/DL (3.4-5.0) 3.0 GM/DL (3.4-5.0) Chloride Level 111 MEQ/L (98-107) 110 MEQ/L (98-107) Calcium Level 8.3 MG/DL (8.5-10.1) Potassium Level 3.4 MEQ/L (3.5-5.1) Test 03/03/18 09:15 White Blood Count 3.1 TH/MM3 (4.0-11.0) Red Blood Count 4.37 MIL/MM3 (4.50-5.90) Hematocrit 36.6 % (39.0-51.0) Mean Corpuscular Hemoglobin Concent 36.4 % (32.0-36.0) Platelet Count 91 TH/MM3 (150-450) Monocytes (%) (Auto) 16.2 % (0.0-8.0) Eosinophils (%) (Auto) 11.8 % (0.0-4.0) Neutrophils # (Auto) 1.6 TH/MM3 (1.8-7.7) Lymphocytes # (Auto) 0.6 TH/MM3 (1.0-4.8) Platelet Estimate LOW (NORMAL) Ovalocytes 1+ (NORMAL) Imaging Last Impressions Chest X-Ray 02/27/18 0000 Signed Impressions: Service Date/Time: Tuesday, February 27, 2018 13:37 - CONCLUSION: No acute disease. Elias Renyolds MD FACR Head CT 02/26/18 0105 Signed Impressions: Service Date/Time: Monday, February 26, 2018 01:59 - CONCLUSION: No acute intracranial disease. Serge Del Toro MD Abdomen/Pelvis CT 02/25/18 9820 Signed Impressions: Service Date/Time: Monday, February 26, 2018 00:09 - CONCLUSION: 1. No acute inflammatory process. 2. Nonobstructing left-sided renal calculi. 3. Bilateral renal cysts. 4. Periumbilical fat-containing hernia unchanged. Serge Del Toro MD Hospital Course Patient presented with pancytopenia, leukopenia with neutropenia. Neutropenia remained stable. Chest x-ray, head CT, abdomen CT on admission with no acute findings. Due to suspected infection, infectious disease was consulted, patient was continued on broad-spectrum antibiotics. Sputum culture positive only for normal liane, mycobacterial culture with no growth in one week. Blood cultures negative. Patient was found to have thrush and treated with nystatin. This was also found to have what appears to be bilateral carpal tunnel syndrome for which she should follow up with primary care. For HIV, with CD4 count of only 10, patient will be started on azithromycin. He will complete course of Bactrim as per infectious disease. Patient will need a follow-up primary care as outpatient. Patient conveys understanding Hypokalemia of 2.9 which resolved after replacement. For problem-based summary from most recent progress note, please see below. //Sepsis/Cellulitis Patient tachycardic with white blood cell count of 3.3, lactic acid elevated to 2.3 Vancomycin/Zosyn Blood cultures pending CT of the abdomen/pelvis showed a periumbilical fat-containing hernia is unchanged from previous Hernia skin red and warm to the touch with central area of crusted ulceration - possible source Chest x-ray negative for acute process Head CT pending Infectious disease consulted, appreciate assistance = Patient continues tachycardic, tachypneic. Last fever 101.5 yesterday evening. Continue on broad-spectrum antibiotics. Pending cultures. Negative at this time. Appreciate ID assistance. Repeat CBC pending. = No fevers in the past 24 hours. Appreciate ID assistance. Continue IV antibiotics as per ID = Shortness of breath continues improving. Pending cultures. Will need infectious disease clearance. = Patient feels much better. Await ID recommendations regarding discharge. //Pancytopenia. Likely secondary to HIV. Continue to monitor. If continues, will consult hematology. = Neutrophil count stable at 1.2. If worsens, will consult hematology for possible Neupogen. = 03/03. Neutrophil count improving at 1.6. // HIV CD4 count 296 on 07/16/17 Repeat CD4 count pending Patient not currently taking antiretroviral medication = CD4 count 10. Appreciate ID assistance. //Bilateral hand numbness. Consult neurology. = Likely carpal tunnel. Appreciate neurology assistance. OT for braces. = Improved. //Thrush -Improving. Continue nystatin swish/swallow // COPD DuoNeb's // Hepatitis C Follow-up with outpatient //Bipolar disorder/depression Patient not currently on any medications Consult psych as needed = No signs of acute exacerbation at this time. = Patient reports that he is on 100 mg of lithium twice daily at home. This was started 1-1/2 weeks prior to admission. Will start on low-dose lithium here. = Continue low-dose lithium //Bilateral lower extremity peripheral neuropathy. Patient reports he is on 800 mg of gabapentin 3 times daily. We will start on 300 mg 3 times daily here. = Continue 300 mg gabapentin 3 times daily. // Hypokalemia IV fluids with supplemental potassium Status post by mouth supplementation Monitor BMP = Resolved on repeat testing. = 03/03. Potassium 3.4. Replace. FEN Regular diet Electrolytes: as above Discharge Planning Await final ID recommendations regarding discharge. Pt Condition on Discharge: Good Discharge Disposition: Discharge Home Discharge Time: > 30 minutes Discharge Instructions DIET: Follow Instructions for: Heart Healthy Diet Activities you can perform: Regular-No Restrictions Follow up Referrals: PCP Follow-up - [facility] New Orders: CBC WITH DIFF - 1 Week CBC WITH DIFF New Medications: Azithromycin (Azithromycin) 600 Mg Tab 1200 MG PO Q7D for Infection for 30 Days, TAB 0 Refills Sulfamethoxazole-Trimethoprim (Sulfamethoxazole-Trimethoprim) 800-160 Mg Tab 1 TAB PO Q8H for Infection for 14 Days, #42 TAB [Nystatin Liq] () 5 ML SUSP 5 ML SWISH-SWAL QID for thrush for 7 Days Continued Medications: Albuterol 18 GM Inh (Ventolin Hfa 18 GM Inh) 90 Mcg/Act Aer 2 PUFF INH Q4-6H PRN for SHORTNESS OF BREATH, #1 INHALER 0 Refills Gabapentin (Gabapentin) 600 Mg Tab 600 MG PO TID, #90 TAB 0 Refills Hecker Carbonate (Hecker Carbonate) 150 Mg Cap 150 MG PO TID, CAP 0 Refills Quetiapine (Seroquel) 50 Mg Tab 50 MG PO HS, #30 TAB 0 Refills Shabbir Talbert MD Mar 04, 2018 13:12
[2018-03-05] MEDS ORDERED: PHARMACY ORDERED LAB ONE (17:45)
== END 2018-03-04 13:33 | disposition home or self-care (01) | DRG 975 ==
LOC: NEPC 18:21 → NEDA 02-26 00:22 → NEDH 02-26 06:45 → N05A 02-26 15:13
PROVIDERS: ADMIT Internal Medicine; ATTEND Internal Medicine
DX: A41.9 Sepsis, unspecified organism (principal); B20 Human immunodeficiency virus [HIV] disease; J44.0 Chronic obstructive pulmonary disease with (acute) lower respiratory infection; K74.60 Unspecified cirrhosis of liver; B37.0 Candidal stomatitis; D70.9 Neutropenia, unspecified; B19.10 Unspecified viral hepatitis B without hepatic coma; L03.90 Cellulitis, unspecified; J20.9 Acute bronchitis, unspecified; F31.9 Bipolar disorder, unspecified; B19.20 Unspecified viral hepatitis C without hepatic coma; F41.9 Anxiety disorder, unspecified; K42.9 Umbilical hernia without obstruction or gangrene; F17.210 Nicotine dependence, cigarettes, uncomplicated; E66.9 Obesity, unspecified; E87.6 Hypokalemia; R63.0 Anorexia; F11.10 Opioid abuse, uncomplicated; L27.0 Generalized skin eruption due to drugs and medicaments taken internally; G56.03 Carpal tunnel syndrome, bilateral upper limbs; G62.9 Polyneuropathy, unspecified; Z68.34 Body mass index [BMI] 34.0-34.9, adult; Z79.1 Long term (current) use of non-steroidal anti-inflammatories (NSAID)
CPT/HCPCS: 70450; 71046; 74177; 80048; 80053; 80069; 80178; 80202; 81001; 82550; 82552; 83605; 83615; 83690; 83735; 84155; 84484; 85025; 85610; 85730; 86355; 86357; 86359; 86360; 87040; 87070; 87116; 87205; 93005; 94640; 94664; 96365; 96366; 96368; 96375; J1885; J2405; J2543; J3370; J3480; J7030; J7040; J7050; Q9967

== ENCOUNTER 2018-03-11 14:13 | Emergency (ER) | payer MEDICAID ==
[~2018-03-11] VITALS: Ht 177.8 cm; Wt 104.5 kg
[~2018-03-11 14:13] MED LIST changes: -AZIT500T2 PO; +AZIT600T PO; +GABA600T PO; +LITH150C PO; +Nystatin Liq SWISH-SWAL; -PRED20 PO; +SERO50TA PO; +SULF1TAB23 PO
[2018-03-11] MEDS ORDERED: IOHEXOL 350 MG/ML 10 ML VIAL (for RAD DIAG) IVCONTRAST ONE (14:14)
[2018-03-11 14:48] VITALS: BP 126/88; PULSE 96; RESP 20; TEMP 99.3; O2SAT 96
[2018-03-11 16:45] LABS: AUTOMATED NEUTROPHIL # 1.4 TH/MM3 (1.8-7.7); EOSINOPHIL # 0.3 TH/MM3 (0-0.4); EOSINOPHIL % 9.5 % (0.0-4.0); HEMOGLOBIN 14.1 GM/DL (13.0-17.0); LYMPH % 35.6 % (9.0-44.0); LYMPHOCYTE # 1.3 TH/MM3 (1.0-4.8); MEAN CELL VOLUME 87.7 FL (80.0-100.0); MEAN CORPUSCULAR HEMOGLOBIN 30.8 PG (27.0-34.0); MEAN CORPUSCULAR HGB CONC 35.2 % (32.0-36.0); MEAN PLATELET VOLUME 9.2 FL (7.0-11.0); MONO % 14.6 % (0.0-8.0); MONOCYTE # 0.5 TH/MM3 (0-0.9); NEUT % 39.3 % (16.0-70.0); PLATELET COUNT 127 TH/MM3 (150-450); RED BLOOD COUNT 4.56 MIL/MM3 (4.50-5.90); RED CELL DISTRIBUTION WIDTH 14.4 % (11.6-17.2); WHITE BLOOD COUNT 3.6 TH/MM3 (4.0-11.0)
[2018-03-11 17:01] LABS: ALT (GPT) 71 U/L (12-78)
[2018-03-11 17:04] LABS: ALBUMIN 3.5 GM/DL (3.4-5.0); ALKALINE PHOSPHATASE 50 U/L (45-117); AST (GOT) 117 U/L (15-37); BICARBONATE 26.1 MEQ/L (21.0-32.0); BLOOD UREA NITROGEN 14 MG/DL (7-18); CALCIUM 8.7 MG/DL (8.5-10.1); CHLORIDE 109 MEQ/L (98-107); CREATININE 0.93 MG/DL (0.60-1.30); GLOMERULAR FILTRATION RATE 87 ML/MIN (>89); GLUCOSE,RANDOM 101 MG/DL (74-106); SODIUM (NA) 142 MEQ/L (136-145); TOTAL BILIRUBIN ADULT 0.3 MG/DL (0.2-1.0); TOTAL PROTEIN 8.5 GM/DL (6.4-8.2)
[2018-03-11] MEDS ORDERED: RESP: ALBUTEROL 2.5 MG/IPRATROPIUM 0.5 MG NEB (SCH) INH ONE (17:15)
--- NOTE | 2018-03-11 17:15 | PD ---
HPI . Rash Chief Complaint: Skin Problem Time Seen by Provider: 16:59 Travel History International Travel<30 days: No Contact w/Intl Traveler<30days: No Traveled to known affect area: No History of Present Illness HPI This is a patient with a who presents with a chief complaint of a rash in his groin. Onset was 4 days ago. It is pruritic. He has not treated it in any way prior to presentation. No modifying factors. In addition, the patient admits to fevers also for the last 4 days. He reports a T-max of 101.3. He has associated shortness of breath, fatigue and diarrhea. He states that he has had diarrhea since he was discharged from the hospital recently. The patient reports that he feels exactly the same now as he did when he was admitted to the hospital on February 26. He states that he had PCP on that admission. Symptom onset: 4 days Context: AIDS patient Severity: T-max 101.3 Associated symptoms: Shortness of breath, fatigue and diarrhea. He also has a rash. PFSH Past Medical History Bipolar Disorder: Yes Depression: Yes Cancer: No Cardiovascular Problems: No Cirrhosis: Yes COPD: Yes Diminished Hearing: No Endocrine: No Gastrointestinal Disorders: Yes (UMBILICAL HERNIA) Genitourinary: No Hepatitis: Yes (C /HIV) Immune Disorder: No Implanted Vascular Access Dvce: No Kidney Stones: Yes Musculoskeletal: No Neurologic: No Psychiatric: No Reproductive: No Respiratory: Yes (EMPHYSEMA) Immunizations Current: Yes Past Surgical History Other Surgery: No Social History Alcohol Use: No Tobacco Use: Yes (11/20 PPD ) Substance Use: No (HERION, CRACK DEC ) Allergies-Medications (Allergen,Severity, Reaction): Coded Allergies: haloperidol (Verified Allergy, Severe, Swelling, 02/04/18) TONGUE SWELLING - Per pt. Reported Meds & Prescriptions Reported Meds & Active Scripts Active Azithromycin 600 Mg Tab 1,200 Mg PO Q7D 30 Days [Nystatin Liq] 5 ML Susp 5 Ml SWISH-SWAL QID 7 Days Sulfamethoxazole-Trimethoprim 800-160 Mg Tab 1 Tab PO Q8H 14 Days Ventolin Hfa 18 GM Inh (Albuterol Sulfate) 90 Mcg/Act Aer 2 Puff INH Q4-6H PRN Reported Gabapentin 600 Mg Tab 600 Mg PO TID Seroquel (Quetiapine Fumarate) 50 Mg Tab 50 Mg PO HS [place] Carbonate 150 Mg Cap 150 Mg PO TID Review of Systems Except as stated in HPI: all other systems reviewed are Neg General / Constitutional: Positive: Fever, Chills Respiratory: Positive: Shortness of Breath Gastrointestinal: Positive: Diarrhea Genitourinary: No: Urgency, Frequency, Dysuria Skin: Positive Rash Physical Exam Narrative GENERAL: He looks very healthy for someone with full-blown AIDS. SKIN: warm/dry. He has an erythematous rash in the groin typical of tinea cruris. HEAD: Normocephalic. Atraumatic. EYES: Pupils equal and round. No scleral icterus. No injection or drainage. ENT: No nasal bleeding or discharge. Mucous membranes pink and moist. NECK: Trachea midline. Full range of motion without pain.. CARDIOVASCULAR: Regular rate and rhythm. Heart sounds are normal. RESPIRATORY: No accessory muscle use. Diffuse coarse rhonchi.. Breath sounds equal bilaterally. Respiratory rate is 20 with a room air oxygen saturation 96% . GASTROINTESTINAL: Abdomen soft. Nontender. Bowel sounds present. Nondistended. MUSCULOSKELETAL: No obvious deformities. NEUROLOGICAL: Awake and alert. No obvious cranial nerve deficits. Motor grossly within normal limits. Normal speech. PSYCHIATRIC: Appropriate mood and affect; insight and judgment normal. Data Data Last Documented VS Vital Signs Date Time Temp Pulse Resp B/P (MAP) Pulse Ox O2 Delivery O2 Flow Rate FiO2 03/11/18 14:48 99.3 96 20 126/88 (101) 96 Orders Orders Complete Blood Count With Diff (03/11/18 14:51) Comprehensive Metabolic Panel (03/11/18 14:51) Act Partial Throm Time (Ptt) (03/11/18 14:51) Prothrombin Time / Inr (Pt) (03/11/18 14:51) Lactic Acid Sepsis Protocol (03/11/18 14:51) Ct Thorax/ Chest W Iv Contrast (03/11/18 17:08) Albuterol-Ipratropium Neb (Duoneb Neb) (03/11/18 17:15) Urinalysis - C+S If Indicated (03/11/18 17:08) Blood Culture (03/11/18 17:08) C Diff Toxin Pcr (03/11/18 17:15) Iohexol 350 Inj (Omnipaque 350 Inj) (03/11/18 14:14) Labs Laboratory Tests Test 03/11/18 16:10 03/11/18 17:50 White Blood Count 3.6 TH/MM3 Red Blood Count 4.56 MIL/MM3 Hemoglobin 14.1 GM/DL Hematocrit 40.0 % Mean Corpuscular Volume 87.7 FL Mean Corpuscular Hemoglobin 30.8 PG Mean Corpuscular Hemoglobin Concent 35.2 % Red Cell Distribution Width 14.4 % Platelet Count 127 TH/MM3 Mean Platelet Volume 9.2 FL Neutrophils (%) (Auto) 39.3 % Lymphocytes (%) (Auto) 35.6 % Monocytes (%) (Auto) 14.6 % Eosinophils (%) (Auto) 9.5 % Basophils (%) (Auto) 1.0 % Neutrophils # (Auto) 1.4 TH/MM3 Lymphocytes # (Auto) 1.3 TH/MM3 Monocytes # (Auto) 0.5 TH/MM3 Eosinophils # (Auto) 0.3 TH/MM3 Basophils # (Auto) 0.0 TH/MM3 CBC Comment DIFF FINAL Differential Comment Prothrombin Time 10.0 SEC Prothromb Time International Ratio 1.0 RATIO Activated Partial Thromboplast Time 24.7 SEC Blood Urea Nitrogen 14 MG/DL Creatinine 0.93 MG/DL Random Glucose 101 MG/DL Total Protein 8.5 GM/DL Albumin 3.5 GM/DL Calcium Level 8.7 MG/DL Alkaline Phosphatase 50 U/L Aspartate Amino Transf (AST/SGOT) 117 U/L Alanine Aminotransferase (ALT/SGPT) 71 U/L Total Bilirubin 0.3 MG/DL Sodium Level 142 MEQ/L Potassium Level 3.9 MEQ/L Chloride Level 109 MEQ/L Carbon Dioxide Level 26.1 MEQ/L Anion Gap 7 MEQ/L Estimat Glomerular Filtration Rate 87 ML/MIN Lactic Acid Level 1.6 mmol/L Urine Color YELLOW Urine Turbidity CLEAR Urine pH 6.0 Urine Specific [place] 1.024 Urine Protein 100 mg/dL Urine Glucose (UA) NEG mg/dL Urine Ketones NEG mg/dL Urine Occult Blood NEG Urine Nitrite NEG Urine Bilirubin NEG Urine Urobilinogen 2.0 MG/DL Urine Leukocyte Esterase NEG Urine RBC LESS THAN 1 /hpf Urine WBC 2 /hpf Urine Bacteria OCC /hpf Urine Hyaline Casts 2 /lpf Urine Mucus MANY /lpf Microscopic Urinalysis Comment CULT NOT INDICATED MDM Medical Decision Making Medical Screen Exam Complete: Yes Emergency Medical Condition: Yes Medical Record Reviewed: Yes (PMH AIDS, COPD, hep C, noncompliance, h/o IV heroin abuse--currently in remission) Differential Diagnosis Differential diagnosis of fever includes but is not limited to viral illness, strep throat, otitis media, pneumonia, sepsis, UTI Narrative Course This patient presents with the chief complaint of a rash in his groin. However , the more concerning thing is that he is an AIDS patient who has been running a fever at home for the last 4 days with a T-max of 101.3. He states that he feels just like he felt when he was admitted recently with PCP pneumonia. However, he does not appear to be in any respiratory distress. He is not hypoxic. I have reviewed that record. His discharge diagnosis was bronchitis. He was treated with Bactrim and Zithromax. All cultures were negative. In addition, he had thrush and was treated with nystatin. CBC & BMP Diagram 03/11/18 16:10 Total Protein 8.5 H, Albumin 3.5, Calcium Level 8.7, Alkaline Phosphatase 50, Aspartate Amino Transf (AST/SGOT) 117 H, Alanine Aminotransferase (ALT/SGPT) 71 , Total Bilirubin 0.3 LA 1.6 His labs are at baseline for him. UA neg. The history, exam, diagnostic testing, and current condition do not suggest any significant pathology to warrant further testing, continued ED treatment, admission, or surgical evaluation at this point. No EMC was found. The patient 's condition is stable and appropriate for discharge. Sepsis Criteria SIRS Criteria (2 or more): Heart rate over 90, WBC > 11510, < 4000 or > 10% bands Criteria Outcome: Meets SIRS criteria Diagnosis Primary Impression: Tinea cruris Med/Other Pt SpecificInfo: Prescription(s) given Scripts Nystatin/Triamcin (Nystatin-Triamcinolone Cream) 100,000 Unit/Gram-0.1 % Cream..g. 1 APPLIC TP TID for Rash, #1 TUBE Prov: Izabel Gomez MD 03/11/18 Disposition: 01 DISCHARGE HOME Condition: Stable Izabel Gomez MD Mar 11, 2018 17:15
--- NOTE | 2018-03-11 17:50 | RADRPT ---
EXAM DATE/TIME: 03/11/2018 17:29 [place] COMPARISON: CHEST PA & LAT, February 27, 2018, 13:37. INDICATIONS : Patient complains of chest pain, weakness and cough and is being evaluated for pneumonia. IV CONTRAST: 66 cc Omnipaque 350 (iohexol) IV RADIATION DOSE: 14.39 CTDIvol (mGy) MEDICAL HISTORY : Emphysema. Chronic obstructive pulmonary disease. HIV.Hepc SURGICAL HISTORY : None. ENCOUNTER: Initial ACUITY: 1 day PAIN SCALE: 7/10 LOCATION: chest TECHNIQUE: Volumetric scanning of the chest was performed. Using automated exposure control and adjustment of t he mA and/or kV according to patient size, radiation dose was kept as low as reasonably achievable to obtain optimal diagnostic quality images. DICOM format image data is available electronically for review and comparison. Follow-up recommendations for detected pulmonary nodules are based at a minimum on nodule size and pa tient risk factors according to Fleischner Society Guidelines. FINDINGS: LUNGS: There is no consolidation or pneumothorax. No concerning pulmonary nodule is visualized. There is mi ld underlying emphysema. PLEURA: There is no pleural thickening or pleural effusion. MEDIASTINUM: The heart and great vessels demonstrate no acute abnormality. There is no mediastinal or hilar lymph adenopathy. AXILLAE: Within normal limits. No lymphadenopathy. SKELETAL: Within normal limits for patient age. MISCELLANEOUS: The visualized upper abdominal organs demonstrate no acute abnormality. There is a small nonobstructi ng left renal calculus. CONCLUSION: 1. No evidence of pneumonia. The lungs are clear 2. Mild underlying emphysema. 3. Small left renal calculus. Philippe Charlton MD on March 11, 2018 at 17:44 Board Certified Radiologist. This report was verified electronically.
[2018-03-11 18:25] LABS: BACTERIA, URINE OCC /hpf; BILIRUBIN, URINE NEG (NEG); BLOOD, URINE NEG (NEG); GLUCOSE,URINE NEG (NEG); HYALINE CAST, URINE 2 /lpf (RARE); KETONE, URINE NEG (NEG); MUCUS URINE MANY /lpf (OCC); NITRITE,URINE NEG (NEG); URINE COLOR YELLOW (YELLW/STRAW); URINE LEUKOCYTE ESTERASE NEG (NEG)
[2018-03-11] MEDS ORDERED: NYSTCRE29 TP (19:00)
== END 2018-03-11 19:50 | disposition home or self-care (01) ==
LOC: NEPC 14:13
DX: B20 Human immunodeficiency virus [HIV] disease (principal); B35.6 Tinea cruris; R50.9 Fever, unspecified; R06.02 Shortness of breath; R53.83 Other fatigue; R19.7 Diarrhea, unspecified; F31.9 Bipolar disorder, unspecified; F17.200 Nicotine dependence, unspecified, uncomplicated; Z87.19 Personal history of other diseases of the digestive system; Z87.09 Personal history of other diseases of the respiratory system
CPT/HCPCS: 71260; 80053; 81001; 83605; 85025; 85610; 85730; 87040; 94664; 99285; Q9967

== ENCOUNTER 2018-04-30 11:11 | Emergency (ER) | payer MEDICAID ==
[~2018-04-30] VITALS: Ht 177.8 cm; Wt 102.0 kg
[~2018-04-30 11:11] MED LIST changes: +NYSTCRE29 TP
[2018-04-30] MEDS ORDERED: IOHEXOL 350 MG/ML 10 ML VIAL (for RAD DIAG) IVCONTRAST ONE (11:12)
[2018-04-30 11:28] VITALS: BP 120/70; PULSE 104; RESP 16; TEMP 97.9; O2SAT 99
[2018-04-30] MEDS ORDERED: SODIUM CHLOR 0.9% 1000 ML INJ 1,000 ML IV SCH (11:42)
--- NOTE | 2018-04-30 11:47 | PD ---
HPI Chief Complaint: Medical Clearance Time Seen by Provider: 11:41 Travel History International Travel<30 days: No Contact w/Intl Traveler<30days: No Traveled to known affect area: No History of Present Illness HPI This is a 48-year-old male with history of HIV his last CD4 count was 29 on February 26, bipolar disorder, remote history of IV drug use, COPD and hepatitis C. He presents for evaluation of multiple complaints. He reports that for the past month he has had fevers as high as 102.7 orally, worsening over the past week. He has had generalized abdominal pain, mostly focalized in his periumbilical region where he has a umbilical hernia as well as a skin ulcer. He has had frequent headaches, disorientation worsened over the past several days. He has developed an area of cellulitis in the right leg 4 days ago. Is complaining of nausea, loose watery stools. Symptoms are moderate, no obvious aggravating or relieving factors. He reports that he is not currently on any antiretroviral medication and he does not have infectious disease specialist that he follows with. He denies cough, congestion, stiff neck, dysuria.he has no other complaints at this time. PFSH Past Medical History Bipolar Disorder: Yes Depression: Yes Cancer: No Cardiovascular Problems: No Cirrhosis: Yes COPD: Yes Diminished Hearing: No Endocrine: No Gastrointestinal Disorders: Yes (UMBILICAL HERNIA) Genitourinary: No Hepatitis: Yes (C /HIV) Immune Disorder: No Implanted Vascular Access Dvce: No Kidney Stones: Yes Musculoskeletal: No Neurologic: No Psychiatric: No Reproductive: No Respiratory: Yes (EMPHYSEMA) Immunizations Current: Yes Past Surgical History Other Surgery: No Social History Alcohol Use: No Tobacco Use: Yes (11/20 PPD ) Substance Use: No (HERION, CRACK DEC ) Allergies-Medications (Allergen,Severity, Reaction): Coded Allergies: haloperidol (Verified Allergy, Severe, Swelling, 02/04/18) TONGUE SWELLING - Per pt. Reported Meds & Prescriptions Reported Meds & Active Scripts Active Keflex (Cephalexin) 500 Mg Capsule 500 Mg PO Q8H 10 Days Bactrim DS (Sulfamethoxazole-Trimethoprim) 800-160 Mg Tab 1 Tab PO BID Nystatin-Triamcinolone Cream (Nystatin/Triamcin) 100,000 Unit/Gram-0.1 % Cream..g. 1 Applic TP TID Azithromycin 600 Mg Tab 1,200 Mg PO Q7D 30 Days [Nystatin Liq] 5 ML Susp 5 Ml SWISH-SWAL QID 7 Days Sulfamethoxazole-Trimethoprim 800-160 Mg Tab 1 Tab PO Q8H 14 Days Ventolin Hfa 18 GM Inh (Albuterol Sulfate) 90 Mcg/Act Aer 2 Puff INH Q4-6H PRN Reported Gabapentin 600 Mg Tab 600 Mg PO TID Seroquel (Quetiapine Fumarate) 50 Mg Tab 50 Mg PO HS [place] Carbonate 150 Mg Cap 150 Mg PO TID Review of Systems Except as stated in HPI: all other systems reviewed are Neg Physical Exam Narrative GENERAL: This is a well-developed well-nourished male no acute distress. SKIN: Warm and dry. Examination of the right thigh reveals a 3-4 cm circular area of erythema and induration. Examination of the abdomen reveals umbilical hernia. The overlying skin is somewhat reddened and there is a central cutaneous ulcer approximately 2 cm in length. There is no drainage. HEAD: Atraumatic. Normocephalic. EYES: Pupils equal and round. No scleral icterus. No injection or drainage. ENT: No nasal bleeding or discharge. Mucous membranes pink and moist. No thrush. NECK: Trachea midline. No JVD. No lymphadenopathy. Neck supple full range of motion. CARDIOVASCULAR: Regular rate and rhythm. No murmur appreciated. RESPIRATORY: No accessory muscle use. Clear to auscultation. Breath sounds equal bilaterally. GASTROINTESTINAL: Abdomen soft, mild generalized tenderness without guarding. Umbilical hernia is noted above which is reducible. MUSCULOSKELETAL: No obvious deformities. No clubbing. No cyanosis. No edema. NEUROLOGICAL: Awake and alert. No obvious cranial nerve deficits. Motor grossly within normal limits. Normal speech. Data Data Last Documented VS Vital Signs Date Time Temp Pulse Resp B/P (MAP) Pulse Ox O2 Delivery O2 Flow Rate FiO2 04/30/18 12:26 96 Room Air 04/30/18 11:28 97.9 104 16 120/70 (87) Orders Orders Sepsis Workup Initiated (04/30/18 ) Complete Blood Count With Diff (04/30/18 11:42) Comprehensive Metabolic Panel (04/30/18 11:42) Prothrombin Time / Inr (Pt) (04/30/18 11:42) Act Partial Throm Time (Ptt) (04/30/18 11:42) Lactic Acid Sepsis Protocol (04/30/18 11:42) Magnesium (Mg) (04/30/18 11:42) Lipase (04/30/18 11:42) Urinalysis - C+S If Indicated (04/30/18 11:42) Blood Culture (04/30/18 11:42) Chest, Single Ap (04/30/18 11:42) Blood Glucose (04/30/18 11:42) Ecg Monitoring (04/30/18 11:42) Iv Access Insert/Monitor (04/30/18 11:42) Oximetry (04/30/18 11:42) Oxygen Administration (04/30/18 11:42) Ct Abd/Pel W Iv Contrast(Rout) (04/30/18 11:42) Ct Brain W/O Iv Contrast(Rout) (04/30/18 ) Sodium Chlor 0.9% 1000 Ml Inj (Ns 1000 M (04/30/18 11:42) Acetaminophen (Tylenol) (04/30/18 13:30) Ketorolac Inj (Toradol Inj) (04/30/18 13:30) Iohexol 350 Inj (Omnipaque 350 Inj) (04/30/18 11:12) Vancomycin Inj (Vancomycin Inj) (04/30/18 15:15) Ed Discharge Order (04/30/18 15:22) Labs Laboratory Tests Test 04/30/18 12:15 04/30/18 13:40 White Blood Count 3.4 TH/MM3 Red Blood Count 4.59 MIL/MM3 Hemoglobin 14.3 GM/DL Hematocrit 40.7 % Mean Corpuscular Volume 88.7 FL Mean Corpuscular Hemoglobin 31.1 PG Mean Corpuscular Hemoglobin Concent 35.1 % Red Cell Distribution Width 14.5 % Platelet Count 81 TH/MM3 Mean Platelet Volume 8.7 FL Neutrophils (%) (Auto) 60.5 % Lymphocytes (%) (Auto) 19.3 % Monocytes (%) (Auto) 12.6 % Eosinophils (%) (Auto) 6.2 % Basophils (%) (Auto) 1.4 % Neutrophils # (Auto) 2.1 TH/MM3 Lymphocytes # (Auto) 0.7 TH/MM3 Monocytes # (Auto) 0.4 TH/MM3 Eosinophils # (Auto) 0.2 TH/MM3 Basophils # (Auto) 0.0 TH/MM3 CBC Comment AUTO DIFF Differential Comment AUTO DIFF CONFIRMED Platelet Estimate LOW Platelet Morphology Comment NORMAL Ovalocytes 1+ Prothrombin Time 10.2 SEC Prothromb Time International Ratio 1.0 RATIO Activated Partial Thromboplast Time 27.8 SEC Blood Urea Nitrogen 16 MG/DL Creatinine 0.86 MG/DL Random Glucose 91 MG/DL Total Protein 8.0 GM/DL Albumin 3.3 GM/DL Calcium Level 8.5 MG/DL Magnesium Level 2.0 MG/DL Alkaline Phosphatase 49 U/L Aspartate Amino Transf (AST/SGOT) 80 U/L Alanine Aminotransferase (ALT/SGPT) 61 U/L Total Bilirubin 0.5 MG/DL Sodium Level 142 MEQ/L Potassium Level 3.5 MEQ/L Chloride Level 108 MEQ/L Carbon Dioxide Level 27.0 MEQ/L Anion Gap 7 MEQ/L Estimat Glomerular Filtration Rate 95 ML/MIN Lactic Acid Level 1.6 mmol/L Lipase 245 U/L Urine Color DARK-YELLOW Urine Turbidity CLEAR Urine pH 6.5 Urine Specific [place] 1.033 Urine Protein 100 mg/dL Urine Glucose (UA) NEG mg/dL Urine Ketones NEG mg/dL Urine Occult Blood NEG Urine Nitrite NEG Urine Bilirubin NEG Urine Urobilinogen 4.0 MG/DL Urine Leukocyte Esterase NEG Urine RBC 2 /hpf Urine WBC 1 /hpf Urine Squamous Epithelial Cells <1 /hpf Urine Mucus FEW /lpf Microscopic Urinalysis Comment CATH-CULT NOT IND MDM Medical Decision Making Medical Screen Exam Complete: Yes Emergency Medical Condition: Yes Medical Record Reviewed: Yes Interpretation(s) CT abdomen pelvis reveals CONCLUSION: 1. Cholelithiasis without evidence of acute inflammatory disease. 2. Splenomegaly 3. Stable bilateral renal cysts. 4. Stable nonobstructing calculi in the left kidney. 5. Large fat-containing umbilical hernia. 6. Stable appearing calcified nodule centrally in the pelvis which may represent calcified lymph node from granulomatous disease. 7. Otherwise unremarkable exam. Differential Diagnosis Sepsis, bacteremia, endocarditis, brain abscess, meningitis, cellulitis, incarcerated hernia, pneumonia, colitis, diverticulitis Narrative Course The patient was placed on ECG monitoring pulse oximetry. Lab work, chest x-ray , blood cultures, CT abdomen pelvis, CT the brain, urinalysis have been ordered. The patient will be given IV fluids. CBC reveals WBC of 3.4, CMP is unremarkable, lactic acid within normal limits, urinalysis is unremarkable, CT the brain is normal, chest x-ray is normal. I reviewed the patient's records. He was admitted on February 26, 2018 complaining of same complaints of 1.5 months of not feeling good and fevers at home. He was admitted for several days and had a thorough workup which was negative. At this point time the plan is to treat his right leg cellulitis with 1 g of vancomycin and discharged with Bactrim and Keflex. Recommended that he follow-up with a primary care physician and a HIV specialist. Discussed signs and symptoms that would warrant returning to the emergency room. Diagnosis Primary Impression: Cellulitis of right thigh Additional Impressions: HIV (human immunodeficiency virus infection) Umbilical hernia Referrals: [facility] Infectious Disease Specialist Additional Instructions: Medication as prescribed. Follow-up with your primary care physician and an infectious disease specialist. Return for any emergent medical conditions. Med/Other Pt SpecificInfo: Prescription(s) given Scripts Cephalexin (Keflex) 500 Mg Capsule 500 MG PO Q8H for Infection for 10 Days, #30 CAP 0 Refills Prov: Rafita Diaz MD 04/30/18 Sulfamethoxazole-Trimethoprim (Bactrim DS) 800-160 Mg Tab 1 TAB PO BID for Infection, #20 TAB 0 Refills Prov: Rafita Diaz MD 04/30/18 Disposition: 01 DISCHARGE HOME Condition: Stable Wes Barron Apr 30, 2018 11:47
--- NOTE | 2018-04-30 12:15 | RADRPT ---
EXAM DATE: 04/30/2018 11:59 AM EDT AGE/SEX: 48 years / Male INDICATIONS: Fever. CLINICAL DATA: This is the patient's initial encounter. Patient reports that signs and symptoms have been present for 1 day and indicates a pain score of 0/10. MEDICAL/SURGICAL HISTORY: Hepatitis C. Chronic obstructive pulmonary disease. Pt states that martin peralta has hx of pneumocystic pneumonia twice, many incidents of bacterial pneumonias, endocarditis, HIV None. COMPARISON: No prior exams available for comparison. FINDINGS: The lungs are clear without infiltrate, nodule, or mass. There is no appreciable pleural effusion for technique. Heart and mediastinum are unremarkable. CONCLUSION: No acute cardiopulmonary disease. Electronically signed by: True Vizcarra MD 04/30/2018 12:14 PM EDT
[2018-04-30 12:26] VITALS: O2SAT 96
[2018-04-30 12:49] LABS: AUTOMATED NEUTROPHIL # 2.1 TH/MM3 (1.8-7.7); BASOPHIL % 1.4 % (0.0-2.0); EOSINOPHIL # 0.2 TH/MM3 (0-0.4); EOSINOPHIL % 6.2 % (0.0-4.0); HEMATOCRIT 40.7 % (39.0-51.0); HEMOGLOBIN 14.3 GM/DL (13.0-17.0); LYMPH % 19.3 % (9.0-44.0); LYMPHOCYTE # 0.7 TH/MM3 (1.0-4.8); MEAN CELL VOLUME 88.7 FL (80.0-100.0); MEAN CORPUSCULAR HEMOGLOBIN 31.1 PG (27.0-34.0); MEAN CORPUSCULAR HGB CONC 35.1 % (32.0-36.0); MEAN PLATELET VOLUME 8.7 FL (7.0-11.0); MONO % 12.6 % (0.0-8.0); MONOCYTE # 0.4 TH/MM3 (0-0.9); NEUT % 60.5 % (16.0-70.0); PLATELET COUNT 81 TH/MM3 (150-450); RED BLOOD COUNT 4.59 MIL/MM3 (4.50-5.90); RED CELL DISTRIBUTION WIDTH 14.5 % (11.6-17.2); WHITE BLOOD COUNT 3.4 TH/MM3 (4.0-11.0)
[2018-04-30 12:57] LABS: PROTHROMBIN TIME - PATIENT 10.2 SEC (9.8-11.6)
[2018-04-30 13:16] LABS: ALBUMIN 3.3 GM/DL (3.4-5.0); ALT (GPT) 61 U/L (12-78); AST (GOT) 80 U/L (15-37); BLOOD UREA NITROGEN 16 MG/DL (7-18); CALCIUM 8.5 MG/DL (8.5-10.1); CHLORIDE 108 MEQ/L (98-107); CREATININE 0.86 MG/DL (0.60-1.30); GLOMERULAR FILTRATION RATE 95 ML/MIN (>89); GLUCOSE,RANDOM 91 MG/DL (74-106); SODIUM (NA) 142 MEQ/L (136-145)
[2018-04-30 13:17] LABS: ALKALINE PHOSPHATASE 49 U/L (45-117); TOTAL BILIRUBIN ADULT 0.5 MG/DL (0.2-1.0)
[2018-04-30] MEDS ORDERED: ACETAMINOPHEN 325 MG TAB PO ONE (13:30)
[2018-04-30] MEDS ORDERED: KETOROLAC TROMETHAMINE 30 MG/ML (IVP) VIAL IV PUSH ONE (13:30)
[2018-04-30 13:32] LABS: OVALOCYTES 1+ (NORMAL)
[2018-04-30 14:41] LABS: BLOOD, URINE NEG (NEG); GLUCOSE,URINE NEG (NEG); KETONE, URINE NEG (NEG); MUCUS URINE FEW /lpf (OCC); NITRITE,URINE NEG (NEG); PH, URINE 6.5 (5.0-8.5); SQUAMOUS EPITHELIAL CELL URINE <1 /hpf (0-5); URINE COLOR DARK-YELLOW (YELLW/STRAW); URINE LEUKOCYTE ESTERASE NEG (NEG)
[2018-04-30 14:45] LABS: BILIRUBIN, URINE NEG (NEG)
--- NOTE | 2018-04-30 14:55 | RADRPT ---
EXAM DATE: 04/30/2018 2:52 PM EDT AGE/SEX: 48 years / Male INDICATIONS: Patient complains of headache. CLINICAL DATA: This is the patient's initial encounter. Patient reports that signs and symptoms have been present for 1 day and indicates a pain score of 5/10. MEDICAL/SURGICAL HISTORY: Renal calculi. Cirrhosis. HIV. hep C, COPD None. RADIATION DOSE: 66.35 CTDI (mGy) COMPARISON: [facility] – [place], [place] BRAIN W/O CONTRAST, 02/26/2018. . TECHNIQUE: CT of the head without contrast. Using automated exposure control and adjustment of the mA and/or kV according to patient size, radiation dose was kept as low as reasonably achievable to ob tain optimal diagnostic quality images. FINDINGS: Cerebrum: The ventricles are normal for age. No evidence of midline shift, mass lesion, hemorrhage or acute infarction. No extraaxial fluid collections are seen. Posterior Fossa: The cerebellum and brainstem are intact. The 4th ventricle is midline. The cerebe llopontine angle is unremarkable. Extracranial: The visualized portion of the orbits is intact. Skull: The calvaria is intact. No evidence of skull fracture. CONCLUSION: 1. Negative CT Head non contrast. Electronically signed by: Thong Winters MD 04/30/2018 2:54 PM EDT
[2018-04-30] MEDS ORDERED: VANCOMYCIN INJ 1,000 MG in SODIUM CHLOR 0.9% 250 ML INJ 250 ML IV ONE (15:15)
--- NOTE | 2018-04-30 15:18 | RADRPT ---
EXAM DATE: 04/30/2018 3:00 PM EDT AGE/SEX: 48 years / Male INDICATIONS: Pain umbilical region for several months. CLINICAL DATA: This is the patient's initial encounter. Patient reports that signs and symptoms have been present for 2 months and indicates a pain score of 10/10. MEDICAL/SURGICAL HISTORY: Renal calculi. Cirrhosis. HIV. Hep C, COPD None. ORAL CONTRAST: No oral contrast ingested. RADIATION DOSE: 18.51 CTDI (mGy) COMPARISON: [facility] – [place] ABDOMEN & PELVIS W CONTRAST, 02/26/2018. . TECHNIQUE: Multiple contiguous axial images were obtained through the abdomen and pelvis following b olus infusion of 95 ml Omnipaque 350 (iohexol) nonionic water-soluble contrast as a single exam dos e. No oral contrast ingested. Using automated exposure control and adjustment of the mA and/or kV ac cording to patient size, the radiation dose was kept as low as reasonably achievable to obtain optima l diagnostic quality images. FINDINGS: Lower Lungs: The visualized lower lungs are clear. Liver: The liver has a homogeneous density without space-occupying lesion. There is no dilation of th e biliary tree. Small calcified gallstones are noted. Spleen: Spleen is enlarged and contains multiple calcified granulomas. Measures 17 cm in craniocauda d dimension. Pancreas: Unremarkable without mass or calcification. Kidneys: Multiple simple cysts are identified in the kidneys. Largest cyst in the right kidney measu res 3 cm and is located in the mid to lower pole. Largest cyst in the right kidney measures 3.2 cm an d is located in the midpole. 2 nonobstructing calculi are identified in the left kidney which are sta ble. There is no evidence of hydronephrosis. Adrenal Glands: Unremarkable. Aorta: The aorta and proximal iliac vessels are grossly unremarkable without aneurysmal dilation. Bowel/Mesentery: The bowel loops are grossly unremarkable. The cecum and sigmoid colon have a normal configuration. A small well-circumscribed calcified nodule centrally in the pelvis posterior to the urinary bladder is stable and has the appearance of a calcified lymph node. Abdominal Wall: A large fat-containing umbilical hernia measuring 5.8 x 7.4 cm in size is again note d and appear stable. There are no associated inflammatory changes. Retroperitoneum: No evidence of adenopathy in the retrocrural, para-aortic, or deep pelvic regions. Bladder: Contours are smooth. Reproductive Organs: No abnormal masses or calcifications seen. Inguinal: Small subcentimeter nonspecific lymph nodes are noted. Bony Structures: Unremarkable. CONCLUSION: 1. Cholelithiasis without evidence of acute inflammatory disease. 2. Splenomegaly 3. Stable bilateral renal cysts. 4. Stable nonobstructing calculi in the left kidney. 5. Large fat-containing umbilical hernia. 6. Stable appearing calcified nodule centrally in the pelvis which may represent calcified lymph nod e from granulomatous disease. 7. Otherwise unremarkable exam. Electronically signed by: Harjeet Cazares MD 04/30/2018 3:16 PM EDT
[2018-04-30] MEDS ORDERED: CEPH-460 PO (15:21)
[2018-04-30] MEDS ORDERED: BACT800T5 PO (15:21)
[2018-04-30 16:22] VITALS: BP 132/68; PULSE 75; RESP 17; O2SAT 100
[2018-04-30 17:24] VITALS: BP 165/71
== END 2018-04-30 17:33 | disposition home or self-care (01) ==
LOC: NEPC 11:11
DX: B20 Human immunodeficiency virus [HIV] disease (principal); L03.115 Cellulitis of right lower limb; K42.9 Umbilical hernia without obstruction or gangrene; K80.20 Calculus of gallbladder without cholecystitis without obstruction; R16.1 Splenomegaly, not elsewhere classified; N28.1 Cyst of kidney, acquired; N20.0 Calculus of kidney; F17.200 Nicotine dependence, unspecified, uncomplicated; F31.9 Bipolar disorder, unspecified; K74.60 Unspecified cirrhosis of liver; R51 Headache; Z79.899 Other long term (current) drug therapy
CPT/HCPCS: 70450; 71045; 74177; 80053; 81001; 83605; 83690; 83735; 85025; 85610; 85730; 87040; 96361; 96365; 96375; J1885; J3370; J7030; J7050; Q9967

== ENCOUNTER 2018-05-02 05:58 | Inpatient (IN) | payer MEDICAID ==
[2018-05-02] VITALS (8 sets, daily range): BP systolic 91–139; BP diastolic 46–86; PULSE 59–108; RESP 16–20; TEMP 97.6–102.8; O2SAT 93–97
[~2018-05-02] VITALS: Ht 177.8 cm; Wt 103.2 kg
[~2018-05-02 05:58] MED LIST changes: +BACT800T5 PO; +CEPH-460 PO
[2018-05-02] MEDS ORDERED: IOHEXOL 350 MG/ML 10 ML VIAL (for RAD DIAG) IVCONTRAST ONE (05:59)
--- NOTE | 2018-05-02 06:11 | PD ---
HPI Chief Complaint: Fever Time Seen by Provider: 06:11 Travel History International Travel<30 days: No Contact w/Intl Traveler<30days: No Traveled to known affect area: No History of Present Illness HPI 48-year-old male presents to the emergency department by EMS transport from home for complaint of fever chills headache myalgias arthralgias right thigh pain and abdominal pain. Patient was just seen for same complaint 04/30/18 with previous history of HIV bipolar disorder IV drug use COPD and hepatitis C. Patient recently has been having elevated temperatures and high fevers of 102.7 and 103.4F. Patient has had generalized abdominal pain primarily localized to the dion-umbilical region where he also has a prolapsed hernia and superficial skin ulcer without drainage. Patient reports abdominal wall is tender and specifically at the umbilical hernia. CAT scan was performed at that time identified a fat-containing hernia. Patient also reported some frequent headaches and disorientation reports his headache is his worst ever now is not sudden onset thunderclap. Patient also has localized area of redness with central scabbing for the past 7 days. Patient was recently prescribed Keflex and Bactrim. Patient also has loose diarrheal school stool and nausea without vomiting. Patient had most of these symptoms since before Sunday. Patient is unable to identify exacerbating or alleviating factors. Patient also recently treated with azithromycin. PFSH Past Medical History Narrative Medical Bipolar disorder depression umbilical hernia hepatitis C HIV kidney stones emphysema; nursing notes reviewed Bipolar Disorder: Yes Depression: Yes Cardiovascular Problems: No Cirrhosis: Yes COPD: Yes Diminished Hearing: No Gastrointestinal Disorders: Yes (UMBILICAL HERNIA) Genitourinary: No Hepatitis: Yes (C /HIV) Kidney Stones: Yes Musculoskeletal: No Neurologic: No Psychiatric: No Reproductive: No Respiratory: Yes (EMPHYSEMA, pneumonia) Immunizations Current: Yes Past Surgical History Other Surgery: No Social History Alcohol Use: No Tobacco Use: Yes (/2 PPD ) Substance Use: No (HERION, CRACK ) Allergies-Medications (Allergen,Severity, Reaction): Coded Allergies: haloperidol (Verified Allergy, Severe, Swelling, 02/04/18) TONGUE SWELLING - Per pt. Reported Meds & Prescriptions Reported Meds & Active Scripts Active Keflex (Cephalexin) 500 Mg Capsule 500 Mg PO Q8H 10 Days Bactrim DS (Sulfamethoxazole-Trimethoprim) 800-160 Mg Tab 1 Tab PO BID Azithromycin 600 Mg Tab 1,200 Mg PO Q7D 30 Days [Nystatin Liq] 5 ML Susp 5 Ml SWISH-SWAL QID 7 Days Ventolin Hfa 18 GM Inh (Albuterol Sulfate) 90 Mcg/Act Aer 2 Puff INH Q4-6H PRN Review of Systems Except as stated in HPI: all other systems reviewed are Neg General / Constitutional: Positive: Fever, Chills HENT: Positive: Headaches, Lightheadedness, Congestion, No: Sore Throat Cardiovascular: No: Chest Pain or Discomfort Respiratory: Positive: Cough, Shortness of Breath Gastrointestinal: Positive: Nausea, Diarrhea, Abdominal Pain, No: Vomiting Genitourinary: Positive: Decreased Urinary Output, No: Dysuria Musculoskeletal: Positive: Myalgias, Arthralgias Skin: No Rash Neurologic: Positive: Weakness, Dizziness, No: Syncope, Focal Abnormalities, Coordination Problem Psychiatric: Positive: Anxiety Endocrine: No: Heat Intolerance, Cold Intolerance Hematologic/Lymphatic: No: Easy Bruising Physical Exam Narrative GENERAL: Well-developed well-nourished male no acute distress no respiratory distress; febrile with tachycardia SKIN: Warm and dry. HEAD: Normocephalic. EYES: No scleral icterus. No injection or drainage. ENT: Mucous membranes dry airway is patent NECK: Supple, trachea midline. No JVD or lymphadenopathy. No meningismus no nuchal rigidity CARDIOVASCULAR: Increased regular rate and rhythm without murmurs, gallops, or rubs. RESPIRATORY: Breath sounds equal bilaterally. No accessory muscle use. GASTROINTESTINAL: Abdomen soft, diffusely tender specifically periumbilically there is a prolapsed hernia tender to palpation with superficial eschar on the surface of the abdominal wall overlying the umbilical hernia. Nondistended. MUSCULOSKELETAL: No cyanosis, or edema. Attention right lower extremity area of induration erythema warmth and tenderness 5 cm x 5 cm with central scab no fluctuance no purulent drainage no crepitus no ascending erythema distal extremities neurovascular tendon intact. Bilateral dorsalis pedis pulses 2+ to palpation. Capillary refill less than 2 seconds. BACK: Nontender without obvious deformity. No CVA tenderness. Data Data Last Documented VS Vital Signs Date Time Temp Pulse Resp B/P (MAP) Pulse Ox O2 Delivery O2 Flow Rate FiO2 05/02/18 07:17 20 05/02/18 06:46 99.9 05/02/18 06:46 96 Nasal Cannula 2.00 05/02/18 06:00 108 139/86 (103) Orders Orders Sepsis Workup Initiated (05/02/18 ) Complete Blood Count With Diff (05/02/18 06:11) Comprehensive Metabolic Panel (05/02/18 06:11) Prothrombin Time / Inr (Pt) (05/02/18 06:11) Act Partial Throm Time (Ptt) (05/02/18 06:11) Lactic Acid Sepsis Protocol (05/02/18 06:11) Magnesium (Mg) (05/02/18 06:11) Lipase (05/02/18 06:11) Ckmb (Isoenzyme) Profile (05/02/18 06:11) Troponin I (05/02/18 06:11) Urinalysis - C+S If Indicated (05/02/18 06:11) Blood Culture (05/02/18 06:11) Chest, Single Ap (05/02/18 06:11) Blood Glucose (05/02/18 06:11) Ecg Monitoring (05/02/18 06:11) Iv Access Insert/Monitor (05/02/18 06:11) Oximetry (05/02/18 06:11) Oxygen Administration (05/02/18 06:11) Piperacil-Tazo 4.5 Gm Premix (Zosyn 4.5 (05/02/18 06:15) Vancomycin Inj (Vancomycin Inj) (05/02/18 06:15) Ibuprofen (Motrin) (05/02/18 06:15) Acetaminophen (Tylenol) (05/02/18 06:15) Drug Screen, Random Urine (05/02/18 06:11) Sodium Chlor 0.9% 1000 Ml Inj (Ns 1000 M (05/02/18 06:15) Sodium Chlor 0.9% 1000 Ml Inj (Ns 1000 M (05/02/18 06:15) Sodium Chlor 0.9% 1000 Ml Inj (Ns 1000 M (05/02/18 06:15) CKMB (05/02/18 06:20) CKMB% (05/02/18 06:20) Ct Abd/Pel W Iv Contrast(Rout) (05/02/18 ) Labs Laboratory Tests Test 05/02/18 06:20 White Blood Count 4.6 TH/MM3 Red Blood Count 4.27 MIL/MM3 Hemoglobin 13.2 GM/DL Hematocrit 37.5 % Mean Corpuscular Volume 87.9 FL Mean Corpuscular Hemoglobin 30.9 PG Mean Corpuscular Hemoglobin Concent 35.1 % Red Cell Distribution Width 14.2 % Platelet Count 77 TH/MM3 Mean Platelet Volume 9.5 FL Neutrophils (%) (Auto) 67.0 % Lymphocytes (%) (Auto) 13.3 % Monocytes (%) (Auto) 12.8 % Eosinophils (%) (Auto) 6.5 % Basophils (%) (Auto) 0.4 % Neutrophils # (Auto) 3.1 TH/MM3 Lymphocytes # (Auto) 0.6 TH/MM3 Monocytes # (Auto) 0.6 TH/MM3 Eosinophils # (Auto) 0.3 TH/MM3 Basophils # (Auto) 0.0 TH/MM3 CBC Comment AUTO DIFF Prothrombin Time 10.1 SEC Prothromb Time International Ratio 1.0 RATIO Activated Partial Thromboplast Time 28.8 SEC Blood Urea Nitrogen 18 MG/DL Creatinine 0.87 MG/DL Random Glucose 97 MG/DL Total Protein 7.7 GM/DL Albumin 3.0 GM/DL Calcium Level 7.9 MG/DL Magnesium Level 1.9 MG/DL Alkaline Phosphatase 43 U/L Aspartate Amino Transf (AST/SGOT) 106 U/L Alanine Aminotransferase (ALT/SGPT) 55 U/L Total Bilirubin 0.5 MG/DL Sodium Level 139 MEQ/L Potassium Level 3.9 MEQ/L Chloride Level 107 MEQ/L Carbon Dioxide Level 21.1 MEQ/L Anion Gap 11 MEQ/L Estimat Glomerular Filtration Rate 93 ML/MIN Lactic Acid Level 1.1 mmol/L Total Creatine Kinase 192 U/L Creatine Kinase MB LESS THAN 0.5 NG/ML Troponin I 0.02 NG/ML Lipase 275 U/L MDM Medical Decision Making Medical Screen Exam Complete: Yes Emergency Medical Condition: Yes Medical Record Reviewed: Yes (CT abdomen pelvis 04/30/18 large fat-containing umbilical hernia splenomegaly cholelithiasis pelvic calcification no acute intra -abdominal or pelvic pathology; no gross of blood cultures at 48 hours) Interpretation(s) EKG: Sinus tachycardia rate [address] elevation injury pattern or ectopy noted Differential Diagnosis Febrile illness, sepsis, UTI, pneumonia, gastritis pancreatitis biliary colic colitis diverticulitis ileus UTI abscess cellulitis Narrative Course IV access obtained specimens collected and sent for resulting patient given IV fluid bolus and acetaminophen and ibuprofen for fever management as well as presumptive IV antibiotic with Zosyn and vancomycin after blood cultures obtained. Sepsis Criteria SIRS Criteria (2 or more): Temp > 100.9 or < 96.8, Heart rate over 90 Sepsis Criteria (SIRS+source): Infect source susp/known (right thigh cellulitis abscess) Amanda Watson MD May 02, 2018 06:11
[2018-05-02] MEDS ORDERED: VANCOMYCIN INJ 1,250 MG in SODIUM CHLOR 0.9% 250 ML INJ 250 ML IV ONE (06:15)
[2018-05-02] MEDS ORDERED: PIPERACIL-TAZO 4.5 GM PREMIX 100 ML IV ONE (06:15)
[2018-05-02] MEDS ORDERED: ACETAMINOPHEN 325 MG TAB PO ONE ×2 (06:15→10:15)
[2018-05-02] MEDS ORDERED: SODIUM CHLOR 0.9% 1000 ML INJ 1,000 ML IV ONE ×3 (06:15)
[2018-05-02] MEDS ORDERED: IBUPROFEN 800 MG TAB PO ONE (06:15)
--- NOTE | 2018-05-02 06:40 | RADRPT ---
EXAM DATE: 05/02/2018 6:35 AM EDT AGE/SEX: 48 years / Male INDICATIONS: Short of breath, chest pain. CLINICAL DATA: This is the patient's initial encounter. Patient reports that signs and symptoms have been present for 1 day and indicates a pain score of Nonresponsive. MEDICAL/SURGICAL HISTORY: Non-responsive. Non-responsive. COMPARISON: [facility] [place], CHEST SINGLE AP, 04/30/2018. . FINDINGS: Single AP view the chest. Cardiac silhouette is mildly enlarged. Mild patchy opacity in th e right lung base likely representing atelectasis. No evidence of pleural effusion or pneumothorax. CONCLUSION: Mild cardiac silhouette enlargement. Mild patchy right lung base opacity likely represent ing atelectasis. Electronically signed by: Jon Caputo MD 05/02/2018 6:38 AM EDT
[2018-05-02 06:48] LABS: AUTOMATED NEUTROPHIL # 3.1 TH/MM3 (1.8-7.7); BASOPHIL % 0.4 % (0.0-2.0); EOSINOPHIL # 0.3 TH/MM3 (0-0.4); EOSINOPHIL % 6.5 % (0.0-4.0); HEMATOCRIT 37.5 % (39.0-51.0); HEMOGLOBIN 13.2 GM/DL (13.0-17.0); LYMPH % 13.3 % (9.0-44.0); LYMPHOCYTE # 0.6 TH/MM3 (1.0-4.8); MEAN CELL VOLUME 87.9 FL (80.0-100.0); MEAN CORPUSCULAR HEMOGLOBIN 30.9 PG (27.0-34.0); MEAN CORPUSCULAR HGB CONC 35.1 % (32.0-36.0); MEAN PLATELET VOLUME 9.5 FL (7.0-11.0); MONO % 12.8 % (0.0-8.0); MONOCYTE # 0.6 TH/MM3 (0-0.9); PLATELET COUNT 77 TH/MM3 (150-450); RED BLOOD COUNT 4.27 MIL/MM3 (4.50-5.90); RED CELL DISTRIBUTION WIDTH 14.2 % (11.6-17.2); WHITE BLOOD COUNT 4.6 TH/MM3 (4.0-11.0)
[2018-05-02 06:53] LABS: PROTHROMBIN TIME - PATIENT 10.1 SEC (9.8-11.6)
[2018-05-02 07:00] LABS: ALT (GPT) 55 U/L (12-78); AST (GOT) 106 U/L (15-37); BICARBONATE 21.1 MEQ/L (21.0-32.0); BLOOD UREA NITROGEN 18 MG/DL (7-18); CALCIUM 7.9 MG/DL (8.5-10.1); CHLORIDE 107 MEQ/L (98-107); CREATININE 0.87 MG/DL (0.60-1.30); GLOMERULAR FILTRATION RATE 93 ML/MIN (>89); GLUCOSE,RANDOM 97 MG/DL (74-106); MAGNESIUM 1.9 MG/DL (1.5-2.5); SODIUM (NA) 139 MEQ/L (136-145)
[2018-05-02 07:04] LABS: ALKALINE PHOSPHATASE 43 U/L (45-117); TOTAL BILIRUBIN ADULT 0.5 MG/DL (0.2-1.0); TOTAL PROTEIN 7.7 GM/DL (6.4-8.2); TROPONIN I 0.02 NG/ML (0.02-0.05)
[2018-05-02 07:54] LABS: BANDS 23 % (0-6); LYMPHOCYTES 5 % (9-44); MONOCYTES 6 % (0-8); OVALOCYTES 1+ (NORMAL); POLYS (SEG NEUTROPHILS) 65 % (16-70)
[2018-05-02 08:46] LABS: BILIRUBIN, URINE NEG (NEG); BLOOD, URINE NEG (NEG); GLUCOSE,URINE NEG (NEG); KETONE, URINE NEG (NEG); NITRITE,URINE NEG (NEG); PH, URINE 7.5 (5.0-8.5); URINE COLOR YELLOW (YELLW/STRAW); URINE LEUKOCYTE ESTERASE NEG (NEG)
--- NOTE | 2018-05-02 09:45 | RADRPT ---
EXAM DATE: 05/02/2018 8:39 AM EDT AGE/SEX: 48 years / Male INDICATIONS: Patient complains of fever, nausea and pain periumbilical. CLINICAL DATA: This is the patient's initial encounter. Patient reports that signs and symptoms have been present for 1 day and indicates a pain score of 5/10. MEDICAL/SURGICAL HISTORY: Renal calculi. Cirrhosis. HIV. Hep C, COPD, HERNIA None. ORAL CONTRAST: No oral contrast ingested. RADIATION DOSE: 15.85 CTDI (mGy) COMPARISON: [facility] – [place], CT ABDOMEN & PELVIS W CONTRAST, 04/30/2018. . TECHNIQUE: Multiple contiguous axial images were obtained through the abdomen and pelvis following b olus infusion of 90 ml Omnipaque 350 (iohexol) nonionic water-soluble contrast as a single exam dos e. No oral contrast ingested. Using automated exposure control and adjustment of the mA and/or kV ac cording to patient size, the radiation dose was kept as low as reasonably achievable to obtain optima l diagnostic quality images. FINDINGS: The abdominal and pelvic soft tissue structures are unchanged in appearance when compared to recent s tudy on April 30. Again noted is a large fat-containing umbilical hernia without significant reactive changes or abnorm al fluid collections. Small gallstones are again noted. Moderate splenomegaly again noted. Bilateral renal cysts and nonobstructing left renal calculus are stable. Intestinal gas pattern is normal. Osseous structures remain intact. CONCLUSION: 1. Stable exam without evidence of acute process 2. No change since April 30 3. Pertinent findings described above Electronically signed by: Harjeet Cazares MD 05/02/2018 9:43 AM EDT
--- NOTE | 2018-05-02 10:05 | PD ---
Physical Exam Narrative Patient was seen by ED physician and signed out to me. Patient states that he has headache for months and is not new today. Patient complained body ache. Patient complains of fever. Patient on day number #3 Keflex and trim DS for right leg cellulitis. Patient has history of HIV positive and not on medication. Data Data Last Documented VS Vital Signs Date Time Temp Pulse Resp B/P (MAP) Pulse Ox O2 Delivery O2 Flow Rate FiO2 05/02/18 08:12 101.3 82 20 119/71 (87) 96 Room Air 05/02/18 06:46 2.00 Orders Orders Sepsis Workup Initiated (05/02/18 ) Complete Blood Count With Diff (05/02/18 06:11) Comprehensive Metabolic Panel (05/02/18 06:11) Prothrombin Time / Inr (Pt) (05/02/18 06:11) Act Partial Throm Time (Ptt) (05/02/18 06:11) Lactic Acid Sepsis Protocol (05/02/18 06:11) Magnesium (Mg) (05/02/18 06:11) Lipase (05/02/18 06:11) Ckmb (Isoenzyme) Profile (05/02/18 06:11) Troponin I (05/02/18 06:11) Urinalysis - C+S If Indicated (05/02/18 06:11) Blood Culture (05/02/18 06:11) Chest, Single Ap (05/02/18 06:11) Blood Glucose (05/02/18 06:11) Ecg Monitoring (05/02/18 06:11) Iv Access Insert/Monitor (05/02/18 06:11) Oximetry (05/02/18 06:11) Oxygen Administration (05/02/18 06:11) Piperacil-Tazo 4.5 Gm Premix (Zosyn 4.5 (05/02/18 06:15) Vancomycin Inj (Vancomycin Inj) (05/02/18 06:15) Ibuprofen (Motrin) (05/02/18 06:15) Acetaminophen (Tylenol) (05/02/18 06:15) Drug Screen, Random Urine (05/02/18 06:11) Sodium Chlor 0.9% 1000 Ml Inj (Ns 1000 M (05/02/18 06:15) Sodium Chlor 0.9% 1000 Ml Inj (Ns 1000 M (05/02/18 06:15) Sodium Chlor 0.9% 1000 Ml Inj (Ns 1000 M (05/02/18 06:15) CKMB (05/02/18 06:20) CKMB% (05/02/18 06:20) Ct Abd/Pel W Iv Contrast(Rout) (05/02/18 ) Iohexol 350 Inj (Omnipaque 350 Inj) (05/02/18 05:59) Acetaminophen (Tylenol) (05/02/18 10:15) Labs Laboratory Tests Test 05/02/18 06:20 05/02/18 08:10 White Blood Count 4.6 TH/MM3 Red Blood Count 4.27 MIL/MM3 Hemoglobin 13.2 GM/DL Hematocrit 37.5 % Mean Corpuscular Volume 87.9 FL Mean Corpuscular Hemoglobin 30.9 PG Mean Corpuscular Hemoglobin Concent 35.1 % Red Cell Distribution Width 14.2 % Platelet Count 77 TH/MM3 Mean Platelet Volume 9.5 FL Neutrophils (%) (Auto) 67.0 % Lymphocytes (%) (Auto) 13.3 % Monocytes (%) (Auto) 12.8 % Eosinophils (%) (Auto) 6.5 % Basophils (%) (Auto) 0.4 % Neutrophils # (Auto) 3.1 TH/MM3 Lymphocytes # (Auto) 0.6 TH/MM3 Monocytes # (Auto) 0.6 TH/MM3 Eosinophils # (Auto) 0.3 TH/MM3 Basophils # (Auto) 0.0 TH/MM3 CBC Comment AUTO DIFF Differential Total Cells Counted 100 Neutrophils % (Manual) 65 % Band Neutrophils % 23 % Lymphocytes % 5 % Monocytes % 6 % Eosinophils % 1 % Neutrophils # (Manual) 4.0 TH/MM3 Differential Comment FINAL DIFF MANUAL Platelet Estimate LOW Platelet Morphology Comment NORMAL Ovalocytes 1+ Prothrombin Time 10.1 SEC Prothromb Time International Ratio 1.0 RATIO Activated Partial Thromboplast Time 28.8 SEC Blood Urea Nitrogen 18 MG/DL Creatinine 0.87 MG/DL Random Glucose 97 MG/DL Total Protein 7.7 GM/DL Albumin 3.0 GM/DL Calcium Level 7.9 MG/DL Magnesium Level 1.9 MG/DL Alkaline Phosphatase 43 U/L Aspartate Amino Transf (AST/SGOT) 106 U/L Alanine Aminotransferase (ALT/SGPT) 55 U/L Total Bilirubin 0.5 MG/DL Sodium Level 139 MEQ/L Potassium Level 3.9 MEQ/L Chloride Level 107 MEQ/L Carbon Dioxide Level 21.1 MEQ/L Anion Gap 11 MEQ/L Estimat Glomerular Filtration Rate 93 ML/MIN Lactic Acid Level 1.1 mmol/L Total Creatine Kinase 192 U/L Creatine Kinase MB LESS THAN 0.5 NG/ML Troponin I 0.02 NG/ML Lipase 275 U/L Urine Color YELLOW Urine Turbidity CLEAR Urine pH 7.5 Urine Specific Cornelia 1.024 Urine Protein 30 mg/dL Urine Glucose (UA) NEG mg/dL Urine Ketones NEG mg/dL Urine Occult Blood NEG Urine Nitrite NEG Urine Bilirubin NEG Urine Urobilinogen LESS THAN 2.0 MG/DL Urine Leukocyte Esterase NEG Urine WBC LESS THAN 1 /hpf Microscopic Urinalysis Comment CATH-CULT NOT IND Urine Opiates Screen NEG Urine Barbiturates Screen NEG Urine Amphetamines Screen NEG Urine Benzodiazepines Screen NEG Urine Cocaine Screen POS Urine Cannabinoids Screen POS MDM Supervised Visit with NANCY: No Interpretation(s) Last Impressions Chest X-Ray 05/02/18 0611 Signed Impressions: CONCLUSION: Mild cardiac silhouette enlargement. Mild patchy right lung base op acity likely representing atelectasis. Abdomen/Pelvis CT 05/02/18 0000 Signed Impressions: CONCLUSION: 1. Stable exam without evidence of acute process 2. No change since April 30 3. Pertinent findings described above 9:58 AM. CBC WBC 4.6. Hemoglobin 13.2 hematocrit 37.5. Platelets 77. 67 neutrophil. CMP within normal limits. Calcium 7.9. AST 106. Cardiac enzymes are normal. Urine drug screen positive for cocaine and cannabis. UA is negative. Diagnosis Primary Impression: Cellulitis of right leg Additional Impressions: HIV (human immunodeficiency virus infection) Polysubstance abuse Cornelio Ordoñez MD May 02, 2018 10:05
[2018-05-02] MEDS ORDERED: NYST1000 SWISH-SWAL (10:37)
--- NOTE | 2018-05-02 10:41 | HHI.HP ---
HPI Service Family Medicine Primary Care Physician No Primary Care Physician Admission Diagnosis Right leg cellulitis. History of HIV infection Diagnoses: International Travel<30 Days: No Contact w/Intl Traveler<30days: No Known Affected Area: No History of Present Illness 48 y/o M w/hx of HIV presenting w/fever. Started feeling sick 3 months ago. Endorses daily fevers. Tmax was 102.8. Took Tylenol. States he was having diarrhea and vomiting for a week out of a month. Last episode of watery diarrhea was 3-4 days ago, has a greenish color, no foul smell. Vomited liquid yesterday. Has no appetite for the last 4 days. Does not know if he lost weight. Has daily headaches, has no hx of prior headaches. No neck stiffness or blurry vision. Is very fatigued, starts in the morning. Sleeps all day and night. Feels he is zoning out more often. Not sexually active. No recent travel. No exposure to Tb or sick contacts. Came to the ED on Sunday for right upper leg cellulitis. Gave him Bactrim for 10 days. Has been taking it since then. Does not take his HIV medications. Has not taken it in a couple years because he got tired of it. Was previously taking it 25 years, but not consistently. Got his HIV meds from the [facility]. Was in the hospital in February for PCP pneumonia. Last CD4 count obtained this year was 29, % count was 10. Goes to [facility]. Takes Bactrim and Azithromycin daily per PCP recs. Last saw 3 months ago. (Rebecca Dutta MD R1) Review of Systems Constitutional: COMPLAINS OF: Fatigue, Night Sweats, DENIES: Dizziness Endocrine: DENIES: Polyuria Eyes: DENIES: Blurred vision, Eye pain Ears, nose, mouth, throat: DENIES: Throat pain, Running Nose, Toothache, Odynophagia Respiratory: DENIES: Cough, Shortness of breath Cardiovascular: DENIES: Chest pain, Lower Extremity Edema Gastrointestinal: DENIES: Black stools, Bloody stools Genitourinary: DENIES: Urinary frequency, Urgency, Dysuria, Penile Discharge, Testicular Swelling Integumentary: DENIES: Abnormal pigmentation Hematologic/lymphatic: DENIES: Bruising, Lymphadenopathy Neurologic: DENIES: Localized weakness, Poor Balance Psychiatric: COMPLAINS OF: Confusion (Rebecca Dutta MD R1) Past Family Social History Past Medical History HIV COPD - uses albuterol inhaler Hepatitis C - not treated Depression/bipolar - not treated History of IV drug abuse - last use 15 years ago Thrush - uses Nystatin daily Past Surgical History None (Rebecca Dutta MD R1) Allergies: Coded Allergies: haloperidol (Verified Allergy, Severe, Swelling, 02/04/18) TONGUE SWELLING - Per pt. Family History Patient does not know. Social History History of IV heroin abuse, last use 6 months ago. Denies any alcohol. Smokes approximately half a pack per day for 35 years. Occasional marijuana use. Started it to see if it would help w/appetite. Once in a while, inhales a line of cocaine. Lives w/sister and her children in a house in [place]. 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 (Rebecca Dutta MD R1) Physical Exam Vital Signs Vital Signs Date Time Temp Pulse Resp B/P (MAP) Pulse Ox O2 Delivery O2 Flow Rate FiO2 05/02/18 08:12 101.3 82 20 119/71 (87) 96 Room Air 05/02/18 07:17 20 05/02/18 07:17 20 05/02/18 06:46 99.9 05/02/18 06:46 96 Nasal Cannula 2.00 05/02/18 06:00 102.8 108 18 139/86 (103) 94 Physical Exam GENERAL: This is a disheveled appearing white M w/depressed affect. Seems very fatigued. SKIN: 3x2 cm site of erythema on the right upper thigh w/central healing lesion. Site of induration under and 1-2 cm around site. No drainage or fluctuance. 6x6cm diameter umbilical hernia w/2x2 cm site of skin desquamation. Does not appear infected. HEAD: Atraumatic. Normocephalic. EYES: Pupils equal round and reactive. Extraocular motions intact. ENT: Uvula midline. Airway patent. No teeth, upper dentures. in place. No ulcerations or thrush noted. NECK: Trachea midline. No LAD. CARDIOVASCULAR: Regular rate and rhythm without murmurs, gallops, or rubs. RESPIRATORY: Mild expiratory wheeze in the lower lobes. No crackles. GASTROINTESTINAL: Abdomen soft, non-tender, nondistended. MUSCULOSKELETAL: Extremities without clubbing, cyanosis, or edema. NEUROLOGICAL: Awake and alert.Motor and sensory grossly within normal limits. Laboratory Laboratory Tests Test 05/02/18 06:20 05/02/18 08:10 White Blood Count 4.6 Red Blood Count 4.27 Hemoglobin 13.2 Hematocrit 37.5 Mean Corpuscular Volume 87.9 Mean Corpuscular Hemoglobin 30.9 Mean Corpuscular Hemoglobin Concent 35.1 Red Cell Distribution Width 14.2 Platelet Count 77 Mean Platelet Volume 9.5 Neutrophils (%) (Auto) 67.0 Lymphocytes (%) (Auto) 13.3 Monocytes (%) (Auto) 12.8 Eosinophils (%) (Auto) 6.5 Basophils (%) (Auto) 0.4 Neutrophils # (Auto) 3.1 Lymphocytes # (Auto) 0.6 Monocytes # (Auto) 0.6 Eosinophils # (Auto) 0.3 Basophils # (Auto) 0.0 CBC Comment AUTO DIFF Differential Total Cells Counted 100 Neutrophils % (Manual) 65 Band Neutrophils % 23 Lymphocytes % 5 Monocytes % 6 Eosinophils % 1 Neutrophils # (Manual) 4.0 Differential Comment FINAL DIFF MANUAL Platelet Estimate LOW Platelet Morphology Comment NORMAL Ovalocytes 1+ Prothrombin Time 10.1 Prothromb Time International Ratio 1.0 Activated Partial Thromboplast Time 28.8 Blood Urea Nitrogen 18 Creatinine 0.87 Random Glucose 97 Total Protein 7.7 Albumin 3.0 Calcium Level 7.9 Magnesium Level 1.9 Alkaline Phosphatase 43 Aspartate Amino Transf (AST/SGOT) 106 Alanine Aminotransferase (ALT/SGPT) 55 Total Bilirubin 0.5 Sodium Level 139 Potassium Level 3.9 Chloride Level 107 Carbon Dioxide Level 21.1 Anion Gap 11 Estimat Glomerular Filtration Rate 93 Lactic Acid Level 1.1 Total Creatine Kinase 192 Creatine Kinase MB LESS THAN 0.5 Troponin I 0.02 Lipase 275 Urine Color YELLOW Urine Turbidity CLEAR Urine pH 7.5 Urine Specific [place] 1.024 Urine Protein 30 Urine Glucose (UA) NEG Urine Ketones NEG Urine Occult Blood NEG Urine Nitrite NEG Urine Bilirubin NEG Urine Urobilinogen LESS THAN 2.0 Urine Leukocyte Esterase NEG Urine WBC LESS THAN 1 Microscopic Urinalysis Comment CATH-CULT NOT IND Urine Opiates Screen NEG Urine Barbiturates Screen NEG Urine Amphetamines Screen NEG Urine Benzodiazepines Screen NEG Urine Cocaine Screen POS Urine Cannabinoids Screen POS Date/Time Source Procedure Growth Status 05/02/18 06:25 Blood Peripheral Aerobic Blood Culture Pending Received 05/02/18 06:25 Blood Peripheral Anaerobic Blood Culture Pending Received (Rebecca Dutta MD R1) Result Diagram: 05/02/18 0620 05/02/18 0620 Imaging Last Impressions Chest X-Ray 05/02/18 0611 Signed Impressions: CONCLUSION: Mild cardiac silhouette enlargement. Mild patchy right lung base op acity likely representing atelectasis. Abdomen/Pelvis CT 05/02/18 0000 Signed Impressions: CONCLUSION: 1. Stable exam without evidence of acute process 2. No change since April 30 3. Pertinent findings described above Course IV access obtained specimens collected and sent for resulting patient given IV fluid bolus and acetaminophen and ibuprofen for fever management as well as presumptive IV antibiotic with Zosyn and vancomycin after blood cultures obtained. (Rebecca Dutta MD R1) Caprini VTE Risk Assessment Caprini VTE Risk Assessment: No/Low Risk (score <= 1) (Rebecca Dutta MD R1) Assessment and Plan Assessment and Plan 48 y/o M w/hx of untreated HIV, depression, bipolar disorder, and IV drug use admitted for fever and sepsis. Although wbc count is wnl (misleading due to HIV hx), % bands is elevated. Lactic acid is wnl, but pt is highly immunocompromised. Last IV drug use was 6 months ago. Source of infxn may be skin v endocarditis v lymphoma. CD4 count ordered, as well as TTE. Vanc 15 mg/ kg to be given BID, along w/Bactrim given to pt on last ED visit. Blood cx ordered in the ED. Will f/u. Cellulitis w/roofed lesion was de-roofed by Dr. Wright in the ED and wound cx will be ordered and followed up as well. Code Status DNR (Rebecca Dutta MD R1) Attending Attestation Patient seen and examined with then 1 hour of having been seen by the medicine team. Please see history and physical examination above for this admission, including past, family, social history and review of systems. This is a 48-year-old male with known HIV and hepatitis C who has been experiencing fevers, nausea and vomiting intermittently over the last 3 months. He reports that his highest fever has been 102.8. He has opted not to take anti-retroviral medication for his HIV. He has been on Bactrim for PCP prophylaxis. His H&P is as noted above, and I agree with the findings The 3 centimeter area of erythema and induration with a central eschar is noted on the right anterior thigh. This has been demarcated. At the time I see him, he is complaining of severe headache and overall body aches and skin soreness. In particular the lesion on his thigh is throbbing. This lesion with a central eschar was unroofed and culture was taken of the tissue below. I agree with the plan as documented. (Isa Wright MD) Problem List: (1) Sepsis ICD Codes: A41.9 - Sepsis, unspecified organism Status: Acute Plan: ESR wnl Blood cx and wound cx TTE of heart Vanc 15 mg/kg BID Tylenol PRN for fever (2) Fever ICD Codes: R50.9 - Fever, unspecified Status: Acute Plan: See above Tylenol PRN (3) Cellulitis of right leg ICD Codes: L03.115 - Cellulitis of right lower limb Status: Acute Plan: See above plan Monitor daily for improvement F/u wound cx IV Vanc BID (4) Umbilical hernia ICD Codes: K42.9 - Umbilical hernia without obstruction or gangrene Status: Chronic Plan: Chronic Painful but reducible Will con't to monitor (5) HIV (human immunodeficiency virus infection) ICD Codes: B20 - Human immunodeficiency virus [HIV] disease Status: Chronic Plan: Patient not interested in medication at this time Obtain CD4 level (6) Drug use ICD Codes: F19.90 - Other psychoactive substance use, unspecified, uncomplicated Status: Acute Plan: UDS + for cocaine and cannabinoids Cannot r/o endocarditis See above (7) FEN Plan: Fluids: none Electrolytes: none Nutrition: reg diet DVT prophy: not indicated GI prophy: not indicated Spoke w/ED physician, Dr. Wright, and Dr. Chin about assessment and treatment. (Rebecca Dutta MD R1) Problem Qualifiers (1) Sepsis: Qualified Codes: A41.9 - Sepsis, unspecified organism (2) Fever: Qualified Codes: R50.9 - Fever, unspecified (3) Umbilical hernia: Qualified Codes: K42.9 - Umbilical hernia without obstruction or gangrene Rebecca Dutta MD R1 May 02, 2018 10:41 Isa Wright MD May 02, 2018 14:13
[2018-05-02] MEDS ORDERED: NALOXONE HCL 0.4 MG/ML AMP IV PUSH PRN (11:15)
[2018-05-02] MEDS ORDERED: SODIUM CHLORIDE 0.9% FLUSH 10 ML FLUSH IV FLUSH PRN (11:15)
[2018-05-02] MEDS ORDERED: MAGNESIUM HYDROXIDE SUSP 30 ML CUP PO PRN (11:15)
[2018-05-02] MEDS ORDERED: Vancomycin Consult Pharmacy 1 EA OTHER SCH (11:30)
[2018-05-02] MEDS: SULFAMETHOXAZOLE-TRIMETHOPRIM DS 800-160 MG TAB PO SCH ×2 (13:38→23:00)
[2018-05-02] MEDS: NYSTATIN SUSP 500,000 U/5 ML CUP SWISH-SWAL SCH ×3 (13:38→23:00)
[2018-05-02] MEDS: KETOROLAC TROMETHAMINE 30 MG/ML (IVP) VIAL IV PUSH PRN (13:39)
--- NOTE | 2018-05-02 17:19 | ECHRPT ---
Indication: VEGETATIONS CONCLUSIONS The left ventricular systolic function is normal with an estimated ejection fraction in the range of 55-60%. Mild thickening of the aortic valve leaflets. There is trace tricuspid valve regurgitation. No evidence of vegetations BP: / HR: Rhythm: MEASUREMENTS (Male / Female) Normal Values Technical Quality: 2D ECHO LV Diastolic Diameter PLAX 5.3 cm 4.2 - 5.9 / 3.9 - 5.3 cm LV Systolic Diameter PLAX 3.7 cm IVS Diastolic Thickness 1.3 cm 0.6 - 1.0 / 0.6 - 0.9 cm LVPW Diastolic Thickness 0.9 cm 0.6 - 1.0 / 0.6 - 0.9 cm LV Relative Wall Thickness 0.4 M-MODE Aortic Root Diameter MM 4.0 cm AV Cusp Separation MM 2.7 cm DOPPLER TR Peak Velocity 174.0 cm/s TR Peak Gradient 12.1 mmHg FINDINGS LEFT VENTRICLE Normal left ventricular size. Wall thickness is normal. The left ventricular systolic function is normal with an estimated ejection fraction in the range of 55-60%. RIGHT VENTRICLE The right ventricular size is normal. LEFT ATRIUM The left atrial size is normal. RIGHT ATRIUM The right atrial size is normal. ATRIAL SEPTUM Normal atrial septal thickness. AORTA The aortic root and proximal ascending aorta are not well visualized. MITRAL VALVE Structurally normal mitral valve. No mitral valve regurgitation. No mitral valve stenosis. AORTIC VALVE Mild thickening of the aortic valve leaflets. No aortic valve regurgitation. No aortic valve stenosis. TRICUSPID VALVE Structurally normal tricuspid valve. There is trace tricuspid valve regurgitation. No tricuspid valve stenosis. PULMONARY VALVE The pulmonary valve is not well visualized. PERICARDIUM No pericardial effusion. Yuriy Downing DO (Electronically Signed) Final Date:02 May 2018 17:18
[2018-05-02] MEDS: VANCOMYCIN 1,500 MG/NS 500 ML IV SCH ×2 (17:30)
[2018-05-02] MEDS ORDERED: VANCOMYCIN INJ 1,550 MG in SODIUM CHLORID 0.9% 500 ML INJ 500 ML IV SCH (19:00)
[2018-05-02] MEDS: SODIUM CHLORIDE 0.9% FLUSH 10 ML FLUSH IV FLUSH SCH (23:00)
[2018-05-03] MEDS: VANCOMYCIN 1,500 MG/NS 500 ML IV SCH ×6 (02:45→17:48)
[2018-05-03 04:07] VITALS: BP 121/74; PULSE 66; RESP 18; TEMP 98.1; O2SAT 97
[2018-05-03 07:24] VITALS: BP 123/74; PULSE 75; RESP 18; TEMP 97.6; O2SAT 96
[2018-05-03] MEDS ORDERED: PHARMACY ORDERED LAB ONE (08:45)
[2018-05-03 09:34] LABS: ALBUMIN 2.6 GM/DL (3.4-5.0); ALKALINE PHOSPHATASE 35 U/L (45-117); ALT (GPT) 45 U/L (12-78); AST (GOT) 90 U/L (15-37); BICARBONATE 17.9 MEQ/L (21.0-32.0); CALCIUM 7.5 MG/DL (8.5-10.1); CHLORIDE 117 MEQ/L (98-107); CREATININE 0.73 MG/DL (0.60-1.30); GLOMERULAR FILTRATION RATE 114 ML/MIN (>89); GLUCOSE,RANDOM 80 MG/DL (74-106); SODIUM (NA) 144 MEQ/L (136-145); TOTAL BILIRUBIN ADULT 0.3 MG/DL (0.2-1.0); TOTAL PROTEIN 6.9 GM/DL (6.4-8.2)
[2018-05-03 09:36] LABS: BLOOD UREA NITROGEN 8 MG/DL (7-18)
[2018-05-03] MEDS: SULFAMETHOXAZOLE-TRIMETHOPRIM DS 800-160 MG TAB PO SCH ×2 (09:41→19:41)
[2018-05-03] MEDS: KETOROLAC TROMETHAMINE 30 MG/ML (IVP) VIAL IV PUSH PRN ×2 (09:42→14:52)
[2018-05-03] MEDS: NYSTATIN SUSP 500,000 U/5 ML CUP SWISH-SWAL SCH ×4 (09:42→19:42)
[2018-05-03] MEDS: SODIUM CHLORIDE 0.9% FLUSH 10 ML FLUSH IV FLUSH SCH ×2 (09:42→19:41)
[2018-05-03 12:00] VITALS: BP 146/86; PULSE 79; RESP 18; TEMP 98.1; O2SAT 98
[2018-05-03] MEDS: ACETAMINOPHEN 325 MG TAB PO PRN (12:53)
--- NOTE | 2018-05-03 13:49 | HHI.FPPN ---
Subjective Remarks Patient seen and examined today with . This is a 48-year-old male with known HIV and hepatitis C who declines therapy for both. He is seen this morning still complaining of headache and other body pain. He reports a little less pain in the area of cellulitis of his thigh. His appetite is a little bit improved, and he is eating about half of his diet. Feels as though his fever has improved. Objective Vitals Vital Signs Date Time Temp Pulse Resp B/P (MAP) Pulse Ox O2 Delivery O2 Flow Rate FiO2 05/03/18 12:00 98.1 79 18 146/86 (106) 98 05/03/18 07:24 97.6 75 18 123/74 (90) 96 05/03/18 04:07 98.1 66 18 121/74 (90) 97 05/02/18 23:30 97.8 63 16 117/69 (85) 97 05/02/18 20:04 97.7 76 18 117/63 (81) 95 05/02/18 19:01 66 112/67 (82) 97 05/02/18 15:39 97.6 59 18 91/46 (61) 93 05/02/18 14:52 84 20 136/78 (97) 96 Nasal Cannula 2.00 I/O 05/02/18 05/02/18 05/02/18 05/03/18 05/03/18 05/03/18 07:00 15:00 23:00 07:00 15:00 23:00 Intake Total 3350 ml 500 ml Balance 3350 ml 500 ml Intake Oral 250 ml IV Total 3350 ml 250 ml # Voids 5 Result Diagram: 05/02/18 0620 05/03/18 0840 Other Results Microbiology Date/Time Source Procedure Growth Status 05/02/18 06:25 Blood Peripheral Aerobic Blood Culture - Preliminary NO GROWTH IN 1 DAY Resulted 05/02/18 06:25 Blood Peripheral Anaerobic Blood Culture - Preliminary NO GROWTH IN 1 DAY Resulted 05/03/18 12:05 Wound Leg Gram Stain Pending Received 05/03/18 12:05 Wound Leg Wound Culture Pending Received Imaging Last Impressions Chest X-Ray 05/02/18 0611 Signed Impressions: CONCLUSION: Mild cardiac silhouette enlargement. Mild patchy right lung base op acity likely representing atelectasis. Abdomen/Pelvis CT 05/02/18 0000 Signed Impressions: CONCLUSION: 1. Stable exam without evidence of acute process 2. No change since April 30 3. Pertinent findings described above Objective Remarks O. CONSTITUTIONAL/GEN: normally nourished, in NAD. EYES: conjunctiva normal, PERRLA, EOMI. ENT: Mucous membranes somewhat erythematous NECK: Supple, no palpable lymphadenopathy LUNGS: clear A-P, respiratory effort is normal. CARDIOVASCULAR: RR without murmur or gallop. No significant edema. GI/ABD: soft without masses, without organomegaly. Bowel sounds active NEURO: No focal deficits. SKIN: Erythematous over the dorsum of his hands and forearms, notably some reduction in the size of the circular raised erythematous lesion of his right thigh. This is becoming more fluctuant, and a small amount of serosanguineous fluid is expressed. Culture will be obtained at this. MUSC: back is normal in appearance. PSYCH/MENTAL STATUS: Alert and oriented x 3. A/P Assessment and Plan 48 y/o M w/hx of untreated HIV, depression, bipolar disorder, and IV drug use admitted for fever and sepsis. Although wbc count is wnl (misleading due to HIV hx), % bands is elevated. Lactic acid is wnl, but pt is highly immunocompromised. Last IV drug use was 6 months ago. Source of infxn may be skin v endocarditis v lymphoma. CD4 count ordered, as well as TTE. Vanc 15 mg/ kg to be given BID, along w/Bactrim given to pt on last ED visit. Blood cx ordered in the ED. Will f/u. Cellulitis w/roofed lesion was de-roofed by Dr. Wright in the ED and wound cx will be ordered and followed up as well. Attending Attestation Patient seen and examined. Case reviewed and discussed with the resident team. Agree with plan of care as discussed with me and documented in the resident note. Problem List: (1) Sepsis ICD Codes: A41.9 - Sepsis, unspecified organism Status: Acute Plan: ESR wnl Blood cx and wound cx TTE of heart Vanc 15 mg/kg BID Tylenol PRN for fever (2) Fever ICD Codes: R50.9 - Fever, unspecified Status: Resolved Plan: See above Tylenol PRN (3) Cellulitis of right leg ICD Codes: L03.115 - Cellulitis of right lower limb Status: Acute Plan: See above plan Monitor daily for improvement F/u wound cx IV Vanc BID Increase Toradol to 30 mg IV every 6 (4) Umbilical hernia ICD Codes: K42.9 - Umbilical hernia without obstruction or gangrene Status: Chronic Plan: Chronic Painful but reducible Will con't to monitor (5) HIV (human immunodeficiency virus infection) ICD Codes: B20 - Human immunodeficiency virus [HIV] disease Status: Chronic Plan: Patient not interested in medication at this time Obtain CD4 level (6) Drug use ICD Codes: F19.90 - Other psychoactive substance use, unspecified, uncomplicated Status: Acute Plan: UDS + for cocaine and cannabinoids Cannot r/o endocarditis See above (7) FEN Plan: Fluids: none Electrolytes: none Nutrition: reg diet DVT prophy: not indicated GI prophy: not indicated Spoke w/ED physician, Dr. Wright, and Dr. Chin about assessment and treatment. Problem Qualifiers (1) Sepsis: Qualified Codes: A41.9 - Sepsis, unspecified organism (2) Fever: Qualified Codes: R50.9 - Fever, unspecified (3) Umbilical hernia: Qualified Codes: K42.9 - Umbilical hernia without obstruction or gangrene Isa Wright MD May 03, 2018 13:49
[2018-05-03 15:43] VITALS: BP 131/75; PULSE 86; RESP 18; TEMP 96.5; O2SAT 97
[2018-05-03] MEDS ORDERED: RESP: ALBUTEROL 1.25 MG/3 ML NEB (PRN) NEB (17:15)
[2018-05-03 17:41] VITALS: PULSE 66; RESP 18; TEMP 97.7; O2SAT 96
[2018-05-03 20:15] VITALS: BP 129/75; PULSE 66; RESP 17; TEMP 97.8; O2SAT 98
[2018-05-04 00:02] VITALS: BP 124/60; PULSE 61; RESP 18; TEMP 97.5; O2SAT 98
[2018-05-04] MEDS: VANCOMYCIN 1,500 MG/NS 500 ML IV SCH ×6 (01:07→16:23)
[2018-05-04] MEDS: KETOROLAC TROMETHAMINE 30 MG/ML (IVP) VIAL IV PUSH PRN ×3 (03:17→21:15)
[2018-05-04 05:31] LABS: EOSINOPHIL # 0.3 TH/MM3 (0-0.4); EOSINOPHIL % 15.2 % (0.0-4.0); HEMATOCRIT 31.8 % (39.0-51.0); HEMOGLOBIN 11.2 GM/DL (13.0-17.0); LYMPH % 29.1 % (9.0-44.0); LYMPHOCYTE # 0.6 TH/MM3 (1.0-4.8); MEAN CELL VOLUME 88.6 FL (80.0-100.0); MEAN CORPUSCULAR HEMOGLOBIN 31.1 PG (27.0-34.0); MEAN CORPUSCULAR HGB CONC 35.1 % (32.0-36.0); MEAN PLATELET VOLUME 9.1 FL (7.0-11.0); MONO % 9.2 % (0.0-8.0); MONOCYTE # 0.2 TH/MM3 (0-0.9); NEUT % 45.5 % (16.0-70.0); PLATELET COUNT 71 TH/MM3 (150-450); RED BLOOD COUNT 3.59 MIL/MM3 (4.50-5.90); RED CELL DISTRIBUTION WIDTH 14.4 % (11.6-17.2); WHITE BLOOD COUNT 2.1 TH/MM3 (4.0-11.0)
[2018-05-04 06:07] LABS: BICARBONATE 20.9 MEQ/L (21.0-32.0); CALCIUM 7.4 MG/DL (8.5-10.1); CREATININE 0.81 MG/DL (0.60-1.30)
[2018-05-04 06:28] LABS: CALCIUM-PROTEIN CORRECTED 7.7 MG/DL (8.5-10.1); TOTAL PROTEIN 6.6 GM/DL (6.4-8.2)
[2018-05-04 06:58] LABS: BANDS 4 % (0-6); BASOPHILS 1 % (0-2); LYMPHOCYTES 20 % (9-44); MONOCYTES 5 % (0-8); MYELOCYTES 1 % (0-0); NEUTROPHIL # MANUAL DIFF 1.4 TH/MM3 (1.8-7.7); POLYS (SEG NEUTROPHILS) 62 % (16-70)
[2018-05-04 08:00] VITALS: BP 126/87; PULSE 60; RESP 19; TEMP 97.7; O2SAT 97
[2018-05-04] MEDS ORDERED: PHARMACY ORDERED LAB ONE (08:45)
[2018-05-04] MEDS ORDERED: Vancomycin Consult Pharmacy 1 EA OTHER SCH (09:15)
[2018-05-04] MEDS: NYSTATIN SUSP 500,000 U/5 ML CUP SWISH-SWAL SCH ×4 (09:43→21:15)
[2018-05-04] MEDS: SODIUM CHLORIDE 0.9% FLUSH 10 ML FLUSH IV FLUSH SCH ×2 (09:44→21:15)
[2018-05-04] MEDS: SULFAMETHOXAZOLE-TRIMETHOPRIM DS 800-160 MG TAB PO SCH ×2 (09:44→21:12)
[2018-05-04 12:00] VITALS: BP 144/92; PULSE 61; RESP 22; TEMP 98.2; O2SAT 97
[2018-05-04] MEDS ORDERED: AZITHROMYCIN 600 MG TAB PO SCH (13:00)
[2018-05-04] MEDS: ACETAMINOPHEN 325 MG TAB PO PRN (13:23)
--- NOTE | 2018-05-04 14:55 | HHI.FPPN ---
Subjective Remarks 48 yo HIV positive male presenting with fevers found to be septic, likely source skin abscess now drained. Today feels well. Mild pain in right leg over area where abscess was. No chest pains or shortness of breath. Objective Vitals Vital Signs Date Time Temp Pulse Resp B/P (MAP) Pulse Ox O2 Delivery O2 Flow Rate FiO2 05/04/18 12:00 98.2 61 22 144/92 (109) 97 05/04/18 08:00 97.7 60 19 126/87 (100) 97 05/04/18 04:17 18 05/04/18 00:02 97.5 61 18 124/60 (81) 98 05/03/18 20:15 97.8 66 17 129/75 (93) 98 05/03/18 17:41 97.7 66 18 96 05/03/18 15:43 96.5 86 18 131/75 (93) 97 I/O 05/03/18 05/03/18 05/03/18 05/04/18 05/04/18 05/04/18 07:00 15:00 23:00 07:00 15:00 23:00 Intake Total 500 ml 515 ml 480 ml Output Total 325 ml Balance 500 ml 515 ml 480 ml -325 ml Intake Oral 250 ml 480 ml IV Total 250 ml 515 ml Output Urine Total 325 ml # Voids 2 # Bowel Movements 0 Result Diagram: 05/04/18 0500 05/04/18 0500 Imaging Last Impressions Chest X-Ray 05/02/18 0611 Signed Impressions: CONCLUSION: Mild cardiac silhouette enlargement. Mild patchy right lung base op acity likely representing atelectasis. Abdomen/Pelvis CT 05/02/18 0000 Signed Impressions: CONCLUSION: 1. Stable exam without evidence of acute process 2. No change since April 30 3. Pertinent findings described above Objective Remarks CONSTITUTIONAL/GEN: normally nourished, in NAD. LUNGS: clear A-P, respiratory effort is normal. CARDIOVASCULAR: NRRR without murmur or gallop. No edema. GI/ABD: soft without masses, without organomegaly. Bowel sounds active NEURO: No focal deficits. SKIN: Erythematous over the dorsum of his hands and forearms. Some reduction in the size of the circular raised erythematous lesion of his right thigh after drainage of purulent material 05/04. No fluctuance. PSYCH/MENTAL STATUS: Alert and oriented x 3. Medications and IVs Current Medications Medications (Trade) Dose Ordered Sig/Michelle Route Start Time Stop Time Status Last Admin (NS Flush) 2 ml UNSCH PRN IV FLUSH 05/02/18 11:15 (NS Flush) 2 ml BID IV FLUSH 05/02/18 21:00 05/04/18 09:44 (Narcan Inj) 0.4 mg UNSCH PRN IV PUSH 05/02/18 11:15 (Milk Of Magnesia Liq) 30 ml Q12H PRN PO 05/02/18 11:15 (Senokot) 17.2 mg Q12H PRN PO 05/02/18 11:15 (Lactulose Liq) 30 ml DAILY PRN PO 05/02/18 11:15 (Mycostatin Liq) 5 ml QID SWISH-SWAL 05/02/18 13:00 05/04/18 13:23 (Tylenol) 650 mg Q4H PRN PO 05/02/18 11:45 05/04/18 13:23 (Bactrim Ds 800-160 Mg) 1 tab BID PO 05/02/18 12:30 05/04/18 09:44 Vancomycin HCl 1500 mg/Sodium Chloride 515 ml @ 257.5 mls/ hr Q8H IV 05/02/18 17:00 05/04/18 09:45 (Toradol Inj) 30 mg Q6H PRN IV PUSH 05/03/18 14:00 05/08/18 13:59 05/04/18 09:45 (Albuterol Neb) 1.25 mg Q2HR NEB PRN NEB 05/03/18 17:15 Pharmacy Profile Note 0 ml @ 0 mls/hr UNSCH OTHER 05/04/18 09:15 ([facility] Ordered Lab Info) SPECIFIC LAB TO BE ... ONCE ONCE .XX 05/05/18 08:45 05/05/18 08:46 (Zithromax) 1,200 mg Q7D PO 05/04/18 13:00 05/04/18 13:23 A/P Assessment and Plan 48 y/o M w/hx of untreated HIV, depression, bipolar disorder, and IV drug use admitted with: Problem List: (1) Sepsis ICD Codes: A41.9 - Sepsis, unspecified organism Status: Resolved Plan: Likely source thought to be skin, however also has bacteremia from gram positive rods and anerobic gram positive cocci. Possibly also from skin, but will await speciation. Blood Cx 05/02 - Aerobic pleomorphic GPR, anaerobic GPC Wound Cx 05/02 - MRSA Wound Cx 05/03 pending HIV positive status, not on HAART CD4 count 29 IVDU - Echo negative for vegetations Consult ID due to positive blood culture x2 in HIV infected patient with IVDU Repeat blood cultures Obtain blood AFB/MAC culture (though clinically unlikely to be MAC) Continue vancomycin dosed per pharmacy for bacteremia Continue Bactrim for cellulitis coverage, PCP prophylaxis Resume home Azithromycin 1200 mg weekly for MAC prophylaxis Tylenol PRN for fever (2) Cellulitis of right leg ICD Codes: L03.115 - Cellulitis of right lower limb Status: Acute Plan: S/p drainage of associated abscess, healing well Monitor daily for improvement F/u wound cx Continue Toradol to 30 mg IV every 6 (3) HIV (human immunodeficiency virus infection) ICD Codes: B20 - Human immunodeficiency virus [HIV] disease Status: Chronic Plan: Patient not interested in medication at this time See above plan (4) Umbilical hernia ICD Codes: K42.9 - Umbilical hernia without obstruction or gangrene Status: Chronic Plan: Chronic Painful but reducible Will con't to monitor (5) Drug use ICD Codes: F19.90 - Other psychoactive substance use, unspecified, uncomplicated Status: Acute Plan: UDS + for cocaine and cannabinoids Endocarditis ruled out Monitor clinically (6) FEN Plan: Fluids: none Electrolytes: none Nutrition: reg diet DVT prophy: not indicated GI prophy: not indicated Dispo: Pending clinical course. Likely will need to stay until minimum Sunday if repeat cultures are negative. Problem Qualifiers (1) Sepsis: Qualified Codes: A41.9 - Sepsis, unspecified organism (2) Umbilical hernia: Qualified Codes: K42.9 - Umbilical hernia without obstruction or gangrene Bert Chin MD R2 May 04, 2018 14:55
[2018-05-04 16:00] VITALS: BP 147/86; PULSE 70; RESP 18; TEMP 97.8
--- NOTE | 2018-05-04 16:38 | MB ---
cc: Pop Toribio MD DATE: 05/04/2018 REQUESTING PHYSICIAN: Dr. Chni. REASON FOR CONSULTATION: Positive blood culture. MRSA cellulitis. IVDU. HISTORY OF PRESENT ILLNESS: This is a 48-year-old white male who has HIV disease. The patient is known to me from prior hospitalization. The patient has HIV disease with low CD4 count. He was previously admitted back in February for sepsis with fevers. He was treated for the sepsis and also for probable opportunistic pneumonia. He was given Bactrim for 2 weeks after discharge. The patient states that he has been tired in the mornings and most of his time has been spent in bed and that he gets fevers daily. It was recommended to him to have evaluation at the health department for reinstating HIV medications. He has never followed up with that. He states that he does not have a way to get there. He has a longstanding history of HIV disease and was on HIV medications before, but quit taking them approximately 2 years ago. On admission, the patient had a temperature of 102.8 degrees. He had an area of erythema of the right anterior thigh, which he states came up few days ago. There was slight drainage and a culture was taken. The wound is a round lesion, approximately the size of a quarter. It is erythematous. Culture came back with MRSA. Blood cultures were taken on admission and shows pleomorphic gram-positive rods in aerobic bottles and gram-positive cocci in 1 anaerobic bottle. His white count was 4.6 on admission. Today's white count is 2.1. His temperature has improved. White blood cell count is low at 2.1 today. CD4 count is 29. The patient has a positive drug toxicology screen for cocaine and cannabinoids. He denies IV drugs to me. PAST MEDICAL HISTORY: HIV disease, COPD, hepatitis C, bipolar, depression. ALLERGIES: HALOPERIDOL. MEDICATIONS: 1. Toradol 2. Vancomycin. 3. Nystatin. 4. Bactrim 5. Azithromycin. SOCIAL HISTORY: The patient states that he smokes a few cigarettes a day. Positive cocaine use. Positive marijuana use. Denies alcohol. History of IV heroin use. FAMILY HISTORY: Noncontributory. REVIEW OF SYSTEMS: Negative on a 10-point review. PHYSICAL EXAMINATION: GENERAL: He is a well-developed male who is awake and alert. VITAL SIGNS: Includes temperature 97.9, BP 126/87, respirations 19, and heart rate 60. HEENT: The head is atraumatic. Extraocular movements grossly intact. Pupils reactive to light. No icterus. Oropharynx moist mucosa without lesions. NECK: Supple, no adenopathy. LUNGS: Mild wheezing at both upper lung banuelos. HEART: Regular S1 and S2. No murmurs, rubs or gallops. ABDOMEN: Bowel sounds present, obese, soft. The umbilicus is protruding. There is a dried superficial ulceration at the umbilicus. RECTAL: Not performed. EXTREMITIES: No clubbing, cyanosis or edema. The patient has a round ulceration with erythema and a central ulceration at the mid anterior right thigh. SKIN: The patient has mild erythema of the neck, anterior and posterior. Otherwise, no diffuse rash. NEUROLOGIC: No gross focal finding. PSYCHIATRIC: The patient is calm and cooperative. LABORATORY DATA: WBC 2.1, platelet count 71. Creatinine 0.81, BUN 145, AST 90, ALT 45. IMPRESSION: 1. Superficial skin abscess at the right anterior thigh due to methicillin-resistant Staphylococcus aureus. 2. Bacteremia with pleomorphic gram-positive rods. Possible contamination. However, the patient has a positive culture for cocaine and whether he is telling the truth about IV drug use is questionable since the bacteria in the bloodstream could be iatrogenic. However, the bacteria in the bloodstream could also emanate from skin infection. 3. Human immunodeficiency virus disease. The patient has not been taking medications for the human immunodeficiency virus disease and claims that he has fevers daily and also lethargy chronically. 4. Leukopenia, probably related to infection versus medication versus human immunodeficiency virus disease. 5. Mild patchiness of the right lung base on chest x-ray, which could be atelectasis. RECOMMENDATIONS: Continue with vancomycin for now and monitor the repeat blood cultures, which has been ordered today. If the repeat blood cultures are negative, I would simply give oral antibiotics to treat the skin infection. He could be continued on Bactrim for that purpose. However, we need to keep an eye on his white blood cell count and platelet count and make sure it does not further deteriorate. The patient needs to have HIV disease addressed because that could be causing his current chronic fevers and also chronic malaise. He needs to be followed up with the Health Department so he can get testing for genotype and they can determine what is the appropriate HAART which is best to be give him for HIV management. I stressed to him the need to follow up with the health department. He may need case management assistance to make an appointment for evaluation there. Thank you for this consultation. I will make further recommendations and followup with the patient if necessary. MD VIOLETA Zavala/ZION , 12:40 PM , 04:36 PM AIDAN
[2018-05-04 20:00] VITALS: BP 129/88; PULSE 70; RESP 20; TEMP 98.6; O2SAT 96
[2018-05-05] VITALS: BP 142/84; PULSE 60; RESP 20; TEMP 97.5; O2SAT 96
[2018-05-05] MEDS: VANCOMYCIN 1,500 MG/NS 500 ML IV SCH ×4 (00:56→08:26)
[2018-05-05 07:10] LABS: BASOPHIL % 1.3 % (0.0-2.0); EOSINOPHIL # 0.3 TH/MM3 (0-0.4); EOSINOPHIL % 12.9 % (0.0-4.0); HEMOGLOBIN 11.4 GM/DL (13.0-17.0); LYMPH % 28.6 % (9.0-44.0); LYMPHOCYTE # 0.6 TH/MM3 (1.0-4.8); MEAN CELL VOLUME 89.2 FL (80.0-100.0); MEAN CORPUSCULAR HEMOGLOBIN 30.8 PG (27.0-34.0); MEAN CORPUSCULAR HGB CONC 34.5 % (32.0-36.0); MEAN PLATELET VOLUME 9.3 FL (7.0-11.0); MONO % 12.8 % (0.0-8.0); MONOCYTE # 0.3 TH/MM3 (0-0.9); NEUT % 44.4 % (16.0-70.0); PLATELET COUNT 83 TH/MM3 (150-450); RED CELL DISTRIBUTION WIDTH 14.2 % (11.6-17.2); WHITE BLOOD COUNT 2.2 TH/MM3 (4.0-11.0)
[2018-05-05 07:36] LABS: BICARBONATE 20.2 MEQ/L (21.0-32.0); CREATININE 1.03 MG/DL (0.60-1.30)
[2018-05-05 07:37] LABS: VANCOMYCIN TROUGH 32.2 MCG/ML (5.0-10.0)
[2018-05-05 08:00] VITALS: BP 154/91; PULSE 61; RESP 19; TEMP 97.3; O2SAT 96
[2018-05-05 08:15] LABS: OVALOCYTES 1+ (NORMAL)
[2018-05-05] MEDS: SULFAMETHOXAZOLE-TRIMETHOPRIM DS 800-160 MG TAB PO SCH ×2 (08:23→19:36)
[2018-05-05] MEDS: NYSTATIN SUSP 500,000 U/5 ML CUP SWISH-SWAL SCH ×4 (08:23→19:36)
[2018-05-05] MEDS: ACETAMINOPHEN 325 MG TAB PO PRN (08:24)
[2018-05-05] MEDS: SODIUM CHLORIDE 0.9% FLUSH 10 ML FLUSH IV FLUSH SCH ×2 (08:25→19:37)
[2018-05-05] MEDS ORDERED: PHARMACY ORDERED LAB ONE (08:45)
--- NOTE | 2018-05-05 11:18 | HHI.FPPN ---
Subjective Remarks Febrile overnight. Endorses severe,constant headache associated with blurry vision and photosensitivity. + nausea. Has been worsening since admission, no improvement w /Tylenol or Toradol. Different from usual headaches. Headache is unilateral, extended to pain "behind the eyes." No changes in gait or focal deficits. No seizure like activity noted. Pt states his last LP was 16 years ago, + meningitis. Does not want an LP. Endorses pain around the site of upper thigh cellulitis. Objective Vitals Vital Signs Date Time Temp Pulse Resp B/P (MAP) Pulse Ox O2 Delivery O2 Flow Rate FiO2 05/05/18 08:00 97.3 61 19 154/91 (112) 96 05/05/18 00:00 97.5 60 20 142/84 (103) 96 05/04/18 20:00 98.6 70 20 129/88 (102) 96 05/04/18 16:00 97.8 70 18 147/86 (106) 05/04/18 12:00 98.2 61 22 144/92 (109) 97 I/O 05/04/18 05/04/18 05/04/18 05/05/18 05/05/18 05/05/18 07:00 15:00 23:00 07:00 15:00 23:00 Intake Total 480 ml 515 ml 526 ml 1486 ml 84 ml Output Total 325 ml 225 ml 700 ml Balance 480 ml 190 ml 301 ml 786 ml 84 ml Intake Oral 480 ml 960 ml IV Total 515 ml 526 ml 526 ml 84 ml Output Urine Total 325 ml 225 ml 700 ml # Voids 2 # Bowel Movements 0 Result Diagram: 05/05/18 0554 05/05/18 0554 Objective Remarks CONSTITUTIONAL/GEN: normally nourished, in NAD, appears nervous and uncomfortable. LUNGS: clear A-P, respiratory effort is normal. CARDIOVASCULAR: NRRR without murmur or gallop. No edema. GI/ABD: soft without masses, without organomegaly. Bowel sounds active NEURO: No focal deficits. Negative Brudzinksi, no nuchal rigidity. Kernig sign + (pain in lower back and posterior thigh), +Jolt accentuation of headache w/horizontal movement. SKIN: Erythematous over the dorsum of his hands and forearms. Some reduction in the size of the circular raised erythematous lesion of his right thigh after drainage of purulent material 05/04. No fluctuance,reduction in size and redness compared to previous exam. PSYCH/MENTAL STATUS: Alert and oriented x 3. A/P Assessment and Plan 48 y/o M w/hx of untreated HIV, depression, bipolar disorder, and IV drug use admitted with: Problem List: (1) Headache ICD Codes: R51 - Headache Status: Acute Plan: Non-febrile, but may not be able to mount immune response. Low WBC count, decreased since admission. Blood cx + x2 for gram + elisha and cocci Very immunosuppressed: HIV +, absolute CD4 count 29 Susceptible to meningococcemia and others Constant, severe headache w/papilledema and photosensitivity Physical exam and above concerning for meningitis CT head to exclude mass or increased intracranial pressure LP today Currently on Vanc, williams rousseau Spoke w/Dr. Toribio, who agrees w/ plan above. F/u results and adjust tx course as needed Pt states he will not do LP unless he receives something for pain. Will give Dilaudid 2 mg x1 before procedure. Pain medications motrin and percocet for after procedure. (2) Bacteremia ICD Codes: R78.81 - Bacteremia Plan: Likely source thought to be skin, however also has bacteremia from gram positive rods and anerobic gram positive cocci. Possibly also from skin, but will await speciation. Blood Cx 05/02 - Aerobic pleomorphic GPR, anaerobic GPC Wound Cx 05/02 - MRSA Wound Cx 05/03 pending HIV positive status, not on HAART CD4 count 29 IVDU - Echo negative for vegetations Consult ID due to positive blood culture x2 in HIV infected patient with IVDU Repeat blood cultures. Appreciate ID recs, if neg, abx for skin infxn only ( Bactrim) Obtain blood AFB/MAC culture (though clinically unlikely to be MAC) Continue vancomycin dosed per pharmacy for bacteremia Continue Bactrim for cellulitis coverage, PCP prophylaxis Home Azithromycin 1200 mg weekly for MAC prophylaxis Tylenol PRN for fever (3) Cellulitis of right leg ICD Codes: L03.115 - Cellulitis of right lower limb Status: Acute Plan: S/p drainage of associated abscess, healing well Monitor daily for improvement F/u wound cx - MRSA +, sensitive to Vanc, Bactrim, Levofloxacin Toradol to 30 mg IV every 6 (4) HIV (human immunodeficiency virus infection) ICD Codes: B20 - Human immunodeficiency virus [HIV] disease Status: Chronic Plan: Patient not interested in medication at this time See above plan (5) Umbilical hernia ICD Codes: K42.9 - Umbilical hernia without obstruction or gangrene Status: Chronic Plan: Chronic Painful but reducible Will con't to monitor (6) Drug use ICD Codes: F19.90 - Other psychoactive substance use, unspecified, uncomplicated Status: Acute Plan: UDS + for cocaine and cannabinoids Endocarditis ruled out Monitor clinically Avoid opiate medication as much as possible (7) FEN Plan: Fluids: none Electrolytes: none Nutrition: reg diet DVT prophy: not indicated GI prophy: not indicated Problem Qualifiers (1) Headache: Qualified Codes: G44.52 - New daily persistent headache (ndph) (2) Umbilical hernia: Qualified Codes: K42.9 - Umbilical hernia without obstruction or gangrene Rebecca Dutta MD R1 May 05, 2018 11:18
[2018-05-05 12:00] VITALS: BP 130/77; PULSE 62; RESP 17; TEMP 98; O2SAT 96
[2018-05-05] MEDS ORDERED: HYDROmorphone HCL 2 MG TAB PO ONE (12:30)
[2018-05-05] MEDS ORDERED: oxyCODONE/ACETAMINOPHEN 5 MG/325 MG TAB PO PRN (13:00)
[2018-05-05] MEDS ORDERED: IBUPROFEN 400 MG TAB PO PRN (13:00)
[2018-05-05] MEDS: oxyCODONE/ACETAMINOPHEN 10 MG/325 MG TAB PO PRN ×2 (14:10→20:07)
--- NOTE | 2018-05-05 15:58 | RADRPT ---
EXAM DATE: 05/05/2018 3:27 PM EDT AGE/SEX: 48 years / Male INDICATIONS: Cephalgia. CLINICAL DATA: This is the patient's initial encounter. Patient reports that signs and symptoms have been present for 1 day and indicates a pain score of 3/10. MEDICAL/SURGICAL HISTORY: HIV. Hepatitis C. None. RADIATION DOSE: 46.83 CTDI (mGy) COMPARISON: [facility] [place], CT BRAIN W/O CONTRAST, 04/30/2018. . TECHNIQUE: CT of the head without contrast. Using automated exposure control and adjustment of the mA and/or kV according to patient size, radiation dose was kept as low as reasonably achievable to ob tain optimal diagnostic quality images. FINDINGS: Cerebrum: The ventricles are normal for age. No evidence of midline shift, mass lesion, hemorrhage or acute infarction. No extraaxial fluid collections are seen. Posterior Fossa: The cerebellum and brainstem are intact. The 4th ventricle is midline. The cerebe llopontine angle is unremarkable. Extracranial: The visualized portion of the orbits is intact. Skull: The calvaria is intact. No evidence of skull fracture. Opacified posterior right ethmoid and left mid ethmoid air cells. CONCLUSION: 1. No acute findings in the brain. 2. Bilateral ethmoid sinus disease. Electronically signed by: Burt Lucio MD 05/05/2018 3:57 PM EDT
[2018-05-05 16:00] VITALS: BP 128/85; PULSE 70; RESP 18; TEMP 97.9; O2SAT 95
[2018-05-05] MEDS: LACTULOSE SYRUP 20 GM/30 ML CUP PO PRN (16:09)
[2018-05-05] MEDS: VANCOMYCIN INJ 1,400 MG in SODIUM CHLORID 0.9% 500 ML INJ 500 ML IV SCH (17:18)
--- NOTE | 2018-05-05 17:20 | HHI.IDPN ---
Note Infectious Disease Note Patient complains of headache at the frontal aspect of his head. He is in no distress. He says that the pain medications helps the headache but it returns after the pain medication wears off. He denies nausea. He states that it is bordering his eyes but he does not appear to be shielding his eyes from the light. He denies vomiting. CT scan of the head shows no intracranial abnormality. PAST MEDICAL HISTORY: HIV disease, COPD, hepatitis C, bipolar, depression. ALLERGIES: HALOPERIDOL. MEDICATIONS: Current Medications Medications (Trade) Dose Ordered Sig/Michelle Route PRN Reason Start Time Stop Time Status Last Admin Dose Admin Sodium Chloride (NS Flush) 2 ml UNSCH PRN IV FLUSH FLUSH AFTER USING IV ACCESS 05/02/18 11:15 Sodium Chloride (NS Flush) 2 ml BID IV FLUSH 05/02/18 21:00 05/05/18 08:25 Naloxone HCl (Narcan Inj) 0.4 mg UNSCH PRN IV PUSH SEE LABEL COMMENTS 05/02/18 11:15 Magnesium Hydroxide (Milk Of Magnesia Liq) 30 ml Q12H PRN PO Mild constipation 05/02/18 11:15 Sennosides (Senokot) 17.2 mg Q12H PRN PO Moderate constipation 05/02/18 11:15 Lactulose (Lactulose Liq) 30 ml DAILY PRN PO SEVERE CONSITIPATION 05/02/18 11:15 05/05/18 16:09 Nystatin (Mycostatin Liq) 5 ml QID SWISH-SWAL 05/02/18 13:00 05/05/18 08:23 Acetaminophen (Tylenol) 650 mg Q4H PRN PO FEVER >100.4 05/02/18 11:45 05/05/18 08:24 Trimethoprim/ Sulfamethoxazole (Bactrim Ds 800-160 Mg) 1 tab BID PO 05/02/18 12:30 05/05/18 08:23 Albuterol Sulfate (Albuterol Neb) 1.25 mg Q2HR NEB PRN NEB SHORTNESS OF BREATH 05/03/18 17:15 Pharmacy Profile Note 0 ml @ 0 mls/hr UNSCH OTHER 05/04/18 09:15 Azithromycin (Zithromax) 1,200 mg Q7D PO 05/04/18 13:00 05/04/18 13:23 Vancomycin HCl 1400 mg/Sodium Chloride 514 ml @ 250 mls/hr Q8H IV 05/05/18 17:00 Miscellaneous Information ([facility] Ordered Lab Info) SPECIFIC LAB TO BE ... ONCE ONCE .XX 05/07/18 00:45 05/07/18 00:46 Ibuprofen (Motrin) 400 mg Q6H PRN PO PAIN SCALE 1 TO 2 05/05/18 13:00 Oxycodone/ Acetaminophen (Percocet 5-325 Mg) 1 tab Q6H PRN PO PAIN SCALE 3 TO 5 05/05/18 13:00 Oxycodone/ Acetaminophen (Percocet 10-325 Mg) 1 tab Q6H PRN PO PAIN SCALE 6 TO 10 05/05/18 13:00 05/05/18 14:10 Objective: Vital Signs Date Time Temp Pulse Resp B/P (MAP) Pulse Ox O2 Delivery O2 Flow Rate FiO2 05/05/18 16:00 97.9 70 18 128/85 (99) 95 05/05/18 12:00 98.0 62 17 130/77 (94) 96 05/05/18 08:00 97.3 61 19 154/91 (112) 96 05/05/18 00:00 97.5 60 20 142/84 (103) 96 05/04/18 20:00 98.6 70 20 129/88 (102) 96 Laboratory Tests Test 05/04/18 05:00 05/05/18 05:54 White Blood Count 2.1 TH/MM3 2.2 TH/MM3 Red Blood Count 3.59 MIL/MM3 3.70 MIL/MM3 Hemoglobin 11.2 GM/DL 11.4 GM/DL Hematocrit 31.8 % 33.0 % Mean Corpuscular Volume 88.6 FL 89.2 FL Mean Corpuscular Hemoglobin 31.1 PG 30.8 PG Mean Corpuscular Hemoglobin Concent 35.1 % 34.5 % Red Cell Distribution Width 14.4 % 14.2 % Platelet Count 71 TH/MM3 83 TH/MM3 Mean Platelet Volume 9.1 FL 9.3 FL Neutrophils (%) (Auto) 45.5 % 44.4 % Lymphocytes (%) (Auto) 29.1 % 28.6 % Monocytes (%) (Auto) 9.2 % 12.8 % Eosinophils (%) (Auto) 15.2 % 12.9 % Basophils (%) (Auto) 1.0 % 1.3 % Neutrophils # (Auto) 1.0 TH/MM3 1.0 TH/MM3 Lymphocytes # (Auto) 0.6 TH/MM3 0.6 TH/MM3 Monocytes # (Auto) 0.2 TH/MM3 0.3 TH/MM3 Eosinophils # (Auto) 0.3 TH/MM3 0.3 TH/MM3 Basophils # (Auto) 0.0 TH/MM3 0.0 TH/MM3 CBC Comment AUTO DIFF AUTO DIFF Differential Total Cells Counted 100 Neutrophils % (Manual) 62 % Band Neutrophils % 4 % Lymphocytes % 20 % Monocytes % 5 % Eosinophils % 7 % Basophils % 1 % Neutrophils # (Manual) 1.4 TH/MM3 Myelocytes 1 % Differential Comment FINAL DIFF MANUAL AUTO DIFF CONFIRMED Platelet Estimate LOW LOW Platelet Morphology Comment NORMAL NORMAL Ovalocytes 1+ Laboratory Tests Test 05/04/18 05:00 05/05/18 05:54 Blood Urea Nitrogen 9 MG/DL 11 MG/DL Creatinine 0.81 MG/DL 1.03 MG/DL Random Glucose 118 MG/DL 82 MG/DL Total Protein 6.6 GM/DL Calcium Level 7.4 MG/DL 8.0 MG/DL Sodium Level 145 MEQ/L 144 MEQ/L Potassium Level 3.6 MEQ/L 4.1 MEQ/L Chloride Level 115 MEQ/L 114 MEQ/L Carbon Dioxide Level 20.9 MEQ/L 20.2 MEQ/L Anion Gap 9 MEQ/L 10 MEQ/L Estimat Glomerular Filtration Rate 101 ML/MIN 77 ML/MIN Protein Corrected Calcium 7.7 MG/DL Microbiology Date/Time Source Procedure Growth Status 05/04/18 15:44 Blood Peripheral Mycobacterial Culture Pending Received 05/04/18 15:37 Blood Peripheral Aerobic Blood Culture - Preliminary NO GROWTH IN 1 DAY Resulted 05/04/18 15:37 Blood Peripheral Anaerobic Blood Culture - Preliminary NO GROWTH IN 1 DAY Resulted 05/04/18 11:59 Blood Peripheral Aerobic Blood Culture - Preliminary NO GROWTH IN 1 DAY Resulted 05/04/18 11:59 Blood Peripheral Anaerobic Blood Culture - Preliminary NO GROWTH IN 1 DAY Resulted 05/03/18 12:05 Wound Leg Gram Stain - Final Complete 05/03/18 12:05 Wound Culture - Final S. Aureus Mrsa Complete Last Impressions Head CT 05/05/18 1209 Signed Impressions: CONCLUSION: 1. No acute findings in the brain. 2. Bilateral ethmoid sinus disease. Chest X-Ray 05/02/18 0611 Signed Impressions: CONCLUSION: Mild cardiac silhouette enlargement. Mild patchy right lung base op acity likely representing atelectasis. Abdomen/Pelvis CT 05/02/18 0000 Signed Impressions: CONCLUSION: 1. Stable exam without evidence of acute process 2. No change since April 30 3. Pertinent findings described above PHYSICAL EXAMINATION: GENERAL: Patient is alert and oriented. HEENT: The head is atraumatic. Extraocular movements grossly intact. Pupils reactive to light. No icterus. Oropharynx moist mucosa without lesions. NECK: Supple, no adenopathy. LUNGS: Mild wheezing and rhonchi at both upper lung banuelos. HEART: Regular S1 and S2. No murmurs, rubs or gallops. ABDOMEN: Bowel sounds present, obese, soft. The umbilicus is protruding. Dry superficial ulceration at the umbilicus. EXTREMITIES: No clubbing, cyanosis or edema. The patient has a round ulceration with erythema and a central ulceration at the mid anterior right thigh. SKIN: Mild erythema of the neck, anterior and posterior. Otherwise, no diffuse rash. NEUROLOGIC: No gross focal finding. PSYCHIATRIC: Calm and cooperative. IMPRESSION: 1. Superficial skin abscess at the right anterior thigh due to methicillin-resistant Staphylococcus aureus. 2. Bacteremia with pleomorphic gram-positive rods. Possible contamination. However, the patient has a positive drug screen for cocaine and whether he is telling the truth about IV drug use is questionable since the bacteria in the bloodstream could be iatrogenic. However, the bacteria in the bloodstream could also emanate from the skin infection. 3. Human immunodeficiency virus disease. The patient has not been taking medications for the human immunodeficiency virus disease and claims that he has fevers daily and also lethargy chronically. 4. Leukopenia, probably related to infection versus medication versus human immunodeficiency virus disease. 5. Mild patchiness of the right lung base on chest x-ray, which could be atelectasis. 6. Headache. Patient notes that the headache is worse than previous. He is sitting up in bed watching TV and does not appear to be in any distress. RECOMMENDATIONS: Continue vancomycin. Continue Bactrim but decreased dosing to Sunday and Sunday for prophylaxis Continue azithromycin prophylaxis Agree with proceeding with lumbar puncture to evaluate the headaches. The patient needs to have HIV disease addressed because that could be causing his current chronic fevers and also chronic malaise. He needs to be followed up with the Health Department so he can get testing for genotype and they can determine which ART is best to give him for HIV management. I stressed to him the need to follow up with the health department. He may need case management assistance to make an appointment for evaluation there. Pop Toribio MD May 05, 2018 17:20
[2018-05-05 20:00] VITALS: BP 132/85; PULSE 65; RESP 16; TEMP 98; O2SAT 94
[2018-05-05] MEDS: SENNOSIDES 8.6 MG TAB PO PRN (20:08)
[2018-05-06] VITALS: BP 132/83; PULSE 62; RESP 16; TEMP 97.8; O2SAT 97
[2018-05-06] MEDS: VANCOMYCIN INJ 1,400 MG in SODIUM CHLORID 0.9% 500 ML INJ 500 ML IV SCH ×2 (00:48→09:26)
[2018-05-06] MEDS: oxyCODONE/ACETAMINOPHEN 10 MG/325 MG TAB PO PRN ×3 (00:48→20:39)
[2018-05-06 08:00] VITALS: BP 128/93; PULSE 66; RESP 20; TEMP 97.7; O2SAT 96
[2018-05-06] MEDS ORDERED: POLYETHYLENE GLYCOL 17 GM PKG PO ONE (09:15)
[2018-05-06 09:19] LABS: HEMATOCRIT 35.4 % (39.0-51.0); HEMOGLOBIN 12.4 GM/DL (13.0-17.0); MEAN CORPUSCULAR HEMOGLOBIN 31.2 PG (27.0-34.0); MEAN PLATELET VOLUME 8.7 FL (7.0-11.0); PLATELET COUNT 96 TH/MM3 (150-450); RED BLOOD COUNT 3.97 MIL/MM3 (4.50-5.90); RED CELL DISTRIBUTION WIDTH 14.5 % (11.6-17.2); WHITE BLOOD COUNT 2.5 TH/MM3 (4.0-11.0)
[2018-05-06] MEDS: SULFAMETHOXAZOLE-TRIMETHOPRIM DS 800-160 MG TAB PO SCH (09:24)
[2018-05-06] MEDS: NYSTATIN SUSP 500,000 U/5 ML CUP SWISH-SWAL SCH ×4 (09:24→20:39)
[2018-05-06] MEDS: SODIUM CHLORIDE 0.9% FLUSH 10 ML FLUSH IV FLUSH SCH ×2 (09:25→20:40)
[2018-05-06 09:28] LABS: PROTHROMBIN TIME - PATIENT 9.8 SEC (9.8-11.6)
--- NOTE | 2018-05-06 09:34 | HHI.FPPN ---
Subjective Remarks Vitals stable overnight. Headache continues to be constant, throbbing. Improved w/Percocet, Toradol did not help. Photosensitive. CT head done yesterday. LP ordered, to be done today. Pt states he has been constipated for a week. No other problems. (Rebecca Dutta MD R1) Objective Vitals Vital Signs Date Time Temp Pulse Resp B/P (MAP) Pulse Ox O2 Delivery O2 Flow Rate FiO2 05/06/18 08:00 97.7 66 20 128/93 (105) 96 05/06/18 00:00 97.8 62 16 132/83 (99) 97 05/05/18 20:00 98.0 65 16 132/85 (101) 94 05/05/18 16:00 97.9 70 18 128/85 (99) 95 05/05/18 12:00 98.0 62 17 130/77 (94) 96 I/O 05/05/18 05/05/18 05/05/18 05/06/18 05/06/18 05/06/18 07:00 15:00 23:00 07:00 15:00 23:00 Intake Total 1966 ml 84 ml 1794 ml 514 ml Output Total 700 ml 650 ml Balance 1266 ml 84 ml 1794 ml -136 ml Intake Oral 1440 ml 1280 ml IV Total 526 ml 84 ml 514 ml 514 ml Output Urine Total 700 ml 650 ml # Voids 4 # Bowel Movements 0 (Rebecca Dutta MD R1) Result Diagram: 05/06/18 0804 05/05/18 0554 Objective Remarks CONSTITUTIONAL/GEN: normally nourished, in NAD, occasionally speaks loudly and dramatically. LUNGS: clear A-P, respiratory effort is normal. CARDIOVASCULAR: NRRR without murmur or gallop. No edema. GI/ABD: soft without masses, without organomegaly. Bowel sounds active NEURO: No focal deficits. Negative Brudzinksi, no nuchal rigidity. Kernig sign + (pain in lower back and posterior thigh), +Jolt accentuation of headache w/horizontal movement. SKIN: Erythematous over the dorsum of his hands and forearms. Reduction in the size and color of the circular raised erythematous lesion of his right thigh after drainage of purulent material 05/04. No fluctuance. PSYCH/MENTAL STATUS: Alert and oriented x 3. (Rebecca Dutta MD R1) A/P Assessment and Plan 48 y/o M w/hx of untreated HIV, depression, bipolar disorder, and IV drug use admitted with: Discharge Planning Pending LP results and ID recs. (Rebecca Dutta MD R1) Attending Attestation Patient seen and examined. Case reviewed and discussed with the resident team. Agree with plan of care as discussed with me and documented in the resident note. (Isa Wright MD) Problem List: (1) Headache ICD Codes: R51 - Headache Status: Acute Plan: Non-febrile, but may not be able to mount immune response. Low WBC count, decreased since admission. Blood cx + x2 for gram + elisha and cocci Very immunosuppressed: HIV +, absolute CD4 count 29 Susceptible to meningococcemia and others Constant, severe headache w/papilledema and photosensitivity CT head excludes mass LP planned for today Currently on Vanc, prophy azithro and bactrim Spoke w/Dr. Toribio, who agrees w/ plan above. F/u results. Pt states he will not do LP unless he receives something for pain. Will give Dilaudid 2 mg x1 before procedure. Pain medications motrin and percocet for before after procedure. (2) Bacteremia ICD Codes: R78.81 - Bacteremia Plan: Likely source thought to be skin, however also has bacteremia from gram positive rods and anerobic gram positive cocci. Possibly also from skin, but will await speciation. Blood Cx 6/14 - Aerobic pleomorphic GPR, anaerobic GPC Wound Cx 6/14 - MRSA Wound Cx 6/15 pending HIV positive status, not on HAART CD4 count 29 IVDU - Echo negative for vegetations Consult ID due to positive blood culture x2 in HIV infected patient with IVDU. Repeat blood cultures show no growth in 1 day. Appreciate ID recs: if neg, abx for skin infxn only (Bactrim). Will plan to do after LP. Obtain blood AFB/MAC culture, pending Continue vancomycin dosed per pharmacy for bacteremia Continue Bactrim for cellulitis coverage, PCP prophylaxis Home Azithromycin 1200 mg weekly for MAC prophylaxis Tylenol PRN for fever (3) Cellulitis of right leg ICD Codes: L03.115 - Cellulitis of right lower limb Status: Acute Plan: S/p drainage of associated abscess IMPROVED Monitor daily for improvement F/u wound cx - MRSA +, sensitive to Vanc, Bactrim, Levofloxacin (4) HIV (human immunodeficiency virus infection) ICD Codes: B20 - Human immunodeficiency virus [HIV] disease Status: Chronic Plan: Patient not interested in medication at this time See above plan (5) Umbilical hernia ICD Codes: K42.9 - Umbilical hernia without obstruction or gangrene Status: Chronic Plan: Chronic Painful but reducible Will con't to monitor (6) Drug use ICD Codes: F19.90 - Other psychoactive substance use, unspecified, uncomplicated Status: Acute Plan: UDS + for cocaine and cannabinoids Endocarditis ruled out Monitor clinically Avoid opiate medication as much as possible (7) FEN Plan: Fluids: none Electrolytes: none Nutrition: reg diet DVT prophy: not indicated GI prophy: not indicated (Rebecca Dutta MD R1) Problem Qualifiers (1) Headache: Qualified Codes: G44.52 - New daily persistent headache (ndph) (2) Umbilical hernia: Qualified Codes: K42.9 - Umbilical hernia without obstruction or gangrene Rebecca Dutta MD R1 May 06, 2018 09:34 Isa Wright MD May 06, 2018 10:21
[2018-05-06] MEDS ORDERED: HYDROmorphone HCL 2 MG TAB PO ONE (11:45)
--- NOTE | 2018-05-06 13:08 | PD.RAD ---
Post Procedure Progress Note Pre Procedure Diagnosis: (1) Headache (2) HIV (human immunodeficiency virus infection) (3) HIV (human immunodeficiency virus infection) Post Procedure Diagnosis: (1) HIV (human immunodeficiency virus infection) (2) Headache (3) HIV (human immunodeficiency virus infection) Procedure Date: May 06, 2018 Supervising Radiologist: Prem Reynolds Estimated blood loss: none Anesthesia: Local, Conscious Sedation Plan of Activity Patient to Unit: ROPU Patient Condition: Good Additional Comments: LP completed without difficulty Opening pressure 17 21cc of clear CSF removed See PACS Report for procedural detail/treatment Prem Reynolds MD May 06, 2018 13:08
--- NOTE | 2018-05-06 13:41 | RADRPT ---
EXAM DATE: 05/06/2018 1:30 PM EDT AGE/SEX: 48 years / Male INDICATIONS: Patient presents with persistent headache in need of lumbar puncture with opening press ures for evaluation. CLINICAL DATA: This is the patient's initial encounter. Patient reports that signs and symptoms have been present for 4 - 6 days and indicates a pain score of 5/10. MEDICAL/SURGICAL HISTORY: HIV. Chronic obstructive pulmonary disease. Hepatitis C. Depressio n.Bipolar.History of IV drug use.Thrush . None. COMPARISON: No prior exams available for comparison. FLUORO TIME (min): 2.2 IMAGE SERIES: 3 ACCESS SITE: L3-4 LUMBAR PUNCTURE TIME: 1252 hours OPENING PRESSURE: 17 cm of water CLOSING PRESSURE: not requested FLUID: Total volume of 21.5 cc of clear fluid was removed. Fluid was sent to lab for ordered studies. . . PROCEDURE: 1. Fluoroscopic guided lumbar puncture. 2. Recording of opening pressure. The risks, benefits and alternatives to the procedure were explained and verbal and written consent w as obtained. The site was prepped in sterile fashion. Full sterile technique was used, including ca p, mask, sterile gloves and gown and a large sterile sheet. Hand hygiene and 2% chlorhexidine and/or betadine/alcohol prep was utilized per protocol for cutaneous antisepsis. The skin and subcutaneous tissues were infiltrated with local anesthetic solution. With fluoroscopic guidance the lumbar thecal sac was punctured at the above level described above and the opening pressure was recorded. The above described fluid was removed without difficulty. The patient tolerated the procedure well and there were no complications. CONCLUSION: 1. Uncomplicated fluoroscopically guided lumbar puncture with pressures as above. Electronically signed by: Prem Reynolds MD 05/06/2018 1:40 PM EDT
[2018-05-06 14:26] LABS: TOTAL PROTEIN,CSF 38.7 MG/DL (15.0-45.0)
[2018-05-06 14:39] LABS: VOLUME TUBE # 1 4.8 ML
[2018-05-06 14:40] LABS: SUPERNATE COLOR TUBE #1 CLEAR (CLEAR)
[2018-05-06 14:45] LABS: CSF LYMPHOCYTES 60 %; CSF MONOCYTES 40 %; CSF NEUTROPHILS 0 %; RBC TUBE #4 3 /MM3; WBC TUBE #4 3 /MM3 (0-10)
[2018-05-06 16:00] VITALS: BP 144/85; PULSE 68; RESP 18; TEMP 97.9; O2SAT 95
--- NOTE | 2018-05-06 16:04 | HHI.IDPN ---
Note Infectious Disease Note Patient continues to complain of headache. Reports that the locations at the top of his head. Says he feels nauseated. States that he had one episode of vomiting about half an hour ago. Reports that he has not had a bowel movement in 4 days. Reports that he is short of breath. He is currently sitting on the side of the bed CT scan of the head shows no intracranial abnormality. Lumbar puncture was performed. Culture is pending. The fluid was clear and revealed 3 white cells. PAST MEDICAL HISTORY: HIV disease, COPD, hepatitis C, bipolar, depression. ALLERGIES: HALOPERIDOL. MEDICATIONS: Current Medications Medications (Trade) Dose Ordered Sig/Michelle Route PRN Reason Start Time Stop Time Status Last Admin Dose Admin Sodium Chloride (NS Flush) 2 ml UNSCH PRN IV FLUSH FLUSH AFTER USING IV ACCESS 05/02/18 11:15 Sodium Chloride (NS Flush) 2 ml BID IV FLUSH 05/02/18 21:00 05/06/18 09:25 Naloxone HCl (Narcan Inj) 0.4 mg UNSCH PRN IV PUSH SEE LABEL COMMENTS 05/02/18 11:15 Magnesium Hydroxide (Milk Of Magnesia Liq) 30 ml Q12H PRN PO Mild constipation 05/02/18 11:15 Sennosides (Senokot) 17.2 mg Q12H PRN PO Moderate constipation 05/02/18 11:15 05/05/18 20:08 Lactulose (Lactulose Liq) 30 ml DAILY PRN PO SEVERE CONSITIPATION 05/02/18 11:15 05/05/18 16:09 Nystatin (Mycostatin Liq) 5 ml QID SWISH-SWAL 05/02/18 13:00 05/06/18 09:24 Acetaminophen (Tylenol) 650 mg Q4H PRN PO FEVER >100.4 05/02/18 11:45 05/05/18 08:24 Trimethoprim/ Sulfamethoxazole (Bactrim Ds 800-160 Mg) 1 tab BID PO 05/02/18 12:30 05/06/18 09:24 Albuterol Sulfate (Albuterol Neb) 1.25 mg Q2HR NEB PRN NEB SHORTNESS OF BREATH 05/03/18 17:15 Pharmacy Profile Note 0 ml @ 0 mls/hr UNSCH OTHER 05/04/18 09:15 Azithromycin (Zithromax) 1,200 mg Q7D PO 05/04/18 13:00 05/04/18 13:23 Ibuprofen (Motrin) 400 mg Q6H PRN PO PAIN SCALE 1 TO 2 05/05/18 13:00 Oxycodone/ Acetaminophen (Percocet 5-325 Mg) 1 tab Q6H PRN PO PAIN SCALE 3 TO 5 05/05/18 13:00 Oxycodone/ Acetaminophen (Percocet 10-325 Mg) 1 tab Q6H PRN PO PAIN SCALE 6 TO 10 05/05/18 13:00 05/06/18 05:57 Vancomycin HCl 1500 mg/Sodium Chloride 515 ml @ 257.5 mls/ hr Q12H IV 05/06/18 22:00 Miscellaneous Information ([facility] Ordered Lab Info) SPECIFIC LAB TO BE DRAWN:VANCO TROUGH DATE TO... ONCE ONCE .XX 05/07/18 09:45 05/07/18 09:46 Objective: Vital Signs Date Time Temp Pulse Resp B/P (MAP) Pulse Ox O2 Delivery O2 Flow Rate FiO2 05/05/18 16:00 97.9 70 18 128/85 (99) 95 05/05/18 12:00 98.0 62 17 130/77 (94) 96 05/05/18 08:00 97.3 61 19 154/91 (112) 96 05/05/18 00:00 97.5 60 20 142/84 (103) 96 05/04/18 20:00 98.6 70 20 129/88 (102) 96 Laboratory Tests Test 05/05/18 05:54 05/06/18 08:04 White Blood Count 2.2 TH/MM3 2.5 TH/MM3 Red Blood Count 3.70 MIL/MM3 3.97 MIL/MM3 Hemoglobin 11.4 GM/DL 12.4 GM/DL Hematocrit 33.0 % 35.4 % Mean Corpuscular Volume 89.2 FL 89.0 FL Mean Corpuscular Hemoglobin 30.8 PG 31.2 PG Mean Corpuscular Hemoglobin Concent 34.5 % 35.0 % Red Cell Distribution Width 14.2 % 14.5 % Platelet Count 83 TH/MM3 96 TH/MM3 Mean Platelet Volume 9.3 FL 8.7 FL Neutrophils (%) (Auto) 44.4 % Lymphocytes (%) (Auto) 28.6 % Monocytes (%) (Auto) 12.8 % Eosinophils (%) (Auto) 12.9 % Basophils (%) (Auto) 1.3 % Neutrophils # (Auto) 1.0 TH/MM3 Lymphocytes # (Auto) 0.6 TH/MM3 Monocytes # (Auto) 0.3 TH/MM3 Eosinophils # (Auto) 0.3 TH/MM3 Basophils # (Auto) 0.0 TH/MM3 CBC Comment AUTO DIFF Differential Comment AUTO DIFF CONFIRMED Platelet Estimate LOW Platelet Morphology Comment NORMAL Ovalocytes 1+ Laboratory Tests Test 05/05/18 05:54 Blood Urea Nitrogen 11 MG/DL Creatinine 1.03 MG/DL Random Glucose 82 MG/DL Calcium Level 8.0 MG/DL Sodium Level 144 MEQ/L Potassium Level 4.1 MEQ/L Chloride Level 114 MEQ/L Carbon Dioxide Level 20.2 MEQ/L Anion Gap 10 MEQ/L Estimat Glomerular Filtration Rate 77 ML/MIN Microbiology Date/Time Source Procedure Growth Status 05/04/18 15:44 Blood Peripheral Mycobacterial Culture Pending Received 05/04/18 15:37 Blood Peripheral Aerobic Blood Culture - Preliminary NO GROWTH IN 2 DAYS Resulted 05/04/18 15:37 Blood Peripheral Anaerobic Blood Culture - Preliminary NO GROWTH IN 2 DAYS Resulted 05/04/18 11:59 Blood Peripheral Aerobic Blood Culture - Preliminary NO GROWTH IN 2 DAYS Resulted 05/04/18 11:59 Blood Peripheral Anaerobic Blood Culture - Preliminary NO GROWTH IN 2 DAYS Resulted 05/06/18 12:52 Cerebral Spinal Fluid Lumbar Puncture Fungal Smear Pending Received 05/06/18 12:52 Cerebral Spinal Fluid Lumbar Puncture Fungal Culture Pending Received 05/06/18 12:52 Cerebral Spinal Fluid Lumbar Puncture Acid Fast Stain Pending Received 05/06/18 12:52 Cerebral Spinal Fluid Lumbar Puncture Mycobacterial Culture Pending Received 05/06/18 12:52 Cerebral Spinal Fluid Lumbar Puncture Gram Stain - Final Resulted 05/06/18 12:52 Cerebral Spinal Fluid Lumbar Puncture CSF Culture Pending Resulted Microbiology Date/Time Source Procedure Growth Status 05/04/18 15:44 Blood Peripheral Mycobacterial Culture Pending Received 05/04/18 15:37 Blood Peripheral Aerobic Blood Culture - Preliminary NO GROWTH IN 1 DAY Resulted 05/04/18 15:37 Blood Peripheral Anaerobic Blood Culture - Preliminary NO GROWTH IN 1 DAY Resulted 05/04/18 11:59 Blood Peripheral Aerobic Blood Culture - Preliminary NO GROWTH IN 1 DAY Resulted 05/04/18 11:59 Blood Peripheral Anaerobic Blood Culture - Preliminary NO GROWTH IN 1 DAY Resulted 05/03/18 12:05 Wound Leg Gram Stain - Final Complete 05/03/18 12:05 Wound Culture - Final S. Aureus Mrsa Complete Last Impressions Head CT 05/05/18 1209 Signed Impressions: CONCLUSION: 1. No acute findings in the brain. 2. Bilateral ethmoid sinus disease. Chest X-Ray 05/02/18 0611 Signed Impressions: CONCLUSION: Mild cardiac silhouette enlargement. Mild patchy right lung base op acity likely representing atelectasis. Abdomen/Pelvis CT 05/02/18 0000 Signed Impressions: CONCLUSION: 1. Stable exam without evidence of acute process 2. No change since April 30 3. Pertinent findings described above PHYSICAL EXAMINATION: GENERAL: Patient is alert and oriented. HEENT: The head is atraumatic. Extraocular movements grossly intact. Pupils reactive to light. No icterus. Oropharynx moist mucosa without lesions. NECK: Supple, no adenopathy. LUNGS: Breath sounds are clear. Slight rhonchi at the bases. HEART: Regular S1 and S2. No murmurs, rubs or gallops. ABDOMEN: Bowel sounds present, obese, soft. The umbilicus is protruding. Dry superficial ulceration at the umbilicus. EXTREMITIES: No clubbing, cyanosis or edema. The patient has a round ulceration with erythema and a central ulceration at the mid anterior right thigh. SKIN: Mild erythema of the neck, anterior and posterior. NEUROLOGIC: No gross focal finding. PSYCHIATRIC: Calm and cooperative. IMPRESSION: 1. Superficial skin abscess at the right anterior thigh due to methicillin-resistant Staphylococcus aureus. 2. Bacteremia with pleomorphic gram-positive rods. Possible contamination. However, the patient has a positive drug screen for cocaine and whether he is telling the truth about IV drug use is questionable since the bacteria in the bloodstream could be iatrogenic. However, the bacteria in the bloodstream could also emanate from the skin infection. 3. Human immunodeficiency virus disease. The patient has not been taking medications for the human immunodeficiency virus disease and claims that he has fevers daily and also lethargy chronically. 4. Leukopenia, probably related to infection versus medication versus human immunodeficiency virus disease. 5. Mild patchiness of the right lung base on chest x-ray, which could be atelectasis. 6. Headache. Patient reports that it is constant. No photophobia. RECOMMENDATIONS: Continue vancomycin. Continue Bactrim but decreased dosing to Sunday and Sunday for prophylaxis Continue azithromycin prophylaxis Monitor the lumbar puncture studies. Follow repeat blood culture. Obtain HIV genotype study. The patient needs to have HIV disease addressed because that could be causing his current chronic fevers and also chronic malaise. He needs to be followed up with the [facility] so he can get testing for genotype and they can determine which ART is best to give him for HIV management. I stressed to him the need to follow up with the health department. He may need case management assistance to make an appointment for evaluation there. Pop Toribio MD May 06, 2018 16:04
[2018-05-06] MEDS: SENNOSIDES 8.6 MG TAB PO PRN (17:28)
[2018-05-06] MEDS: LACTULOSE SYRUP 20 GM/30 ML CUP PO PRN (17:28)
[2018-05-06] MEDS ORDERED: ONDANSETRON ODT 4 MG TAB PO PRN (18:15)
[2018-05-06 20:00] VITALS: BP 148/94; PULSE 78; RESP 19; TEMP 97.7; O2SAT 95
[2018-05-06] MEDS: VANCOMYCIN 1,500 MG/NS 500 ML IV SCH ×2 (22:36)
[2018-05-07] VITALS: BP 98/55; PULSE 66; RESP 19; TEMP 97.9; O2SAT 95
[2018-05-07] MEDS ORDERED: PHARMACY ORDERED LAB ONE ×2 (00:45→09:45)
[2018-05-07] MEDS: oxyCODONE/ACETAMINOPHEN 10 MG/325 MG TAB PO PRN ×2 (03:11→08:58)
[2018-05-07 08:00] VITALS: BP 112/65; PULSE 66; RESP 19; TEMP 97.4; O2SAT 93
[2018-05-07] MEDS: SODIUM CHLORIDE 0.9% FLUSH 10 ML FLUSH IV FLUSH SCH (08:58)
[2018-05-07] MEDS: NYSTATIN SUSP 500,000 U/5 ML CUP SWISH-SWAL SCH ×2 (08:59→13:00)
[2018-05-07 09:25] LABS: HEMATOCRIT 36.2 % (39.0-51.0); HEMOGLOBIN 12.6 GM/DL (13.0-17.0); MEAN CELL VOLUME 88.7 FL (80.0-100.0); MEAN CORPUSCULAR HEMOGLOBIN 30.8 PG (27.0-34.0); MEAN CORPUSCULAR HGB CONC 34.7 % (32.0-36.0); MEAN PLATELET VOLUME 8.6 FL (7.0-11.0); PLATELET COUNT 101 TH/MM3 (150-450); RED BLOOD COUNT 4.08 MIL/MM3 (4.50-5.90); RED CELL DISTRIBUTION WIDTH 14.3 % (11.6-17.2); WHITE BLOOD COUNT 2.7 TH/MM3 (4.0-11.0)
[2018-05-07 09:37] LABS: HSV 1,PCR Negative (Negative)
[2018-05-07 09:58] LABS: CREATININE 0.89 MG/DL (0.60-1.30)
[2018-05-07 10:20] LABS: CMV DNA QUANT BY RAPID PCR Negative (Negative); CMV PCR SPECIMEN SOURCE CSF
[2018-05-07] MEDS: VANCOMYCIN 1,500 MG/NS 500 ML IV SCH ×2 (10:44)
[2018-05-07 12:00] VITALS: BP 107/62; PULSE 73; RESP 19; TEMP 97.8; O2SAT 93
--- NOTE | 2018-05-07 12:43 | HHI.FPPN ---
Subjective Remarks Patient seen and examined with the medicine team. This is a 48-year-old male with known HIV and hepatitis C who, upon admission, declined any treatment for his HIV. He was already taking Bactrim. This morning, he complains of right-sided headache which responds somewhat to Percocet or ibuprofen. He complains of some altered vision but is unable to characterize this further. He reports that his headache pain was 10 and brought down to a 6 with treatment. When pressed further, he now states that he is willing to seek treatment for his HIV. He has been switched to Bactrim Sunday and Sunday. Objective Vitals Vital Signs Date Time Temp Pulse Resp B/P (MAP) Pulse Ox O2 Delivery O2 Flow Rate FiO2 05/07/18 08:00 97.4 66 19 112/65 (81) 93 05/07/18 00:00 97.9 66 19 98/55 (69) 95 05/06/18 20:00 97.7 78 19 148/94 (112) 95 05/06/18 16:00 97.9 68 18 144/85 (104) 95 I/O 05/06/18 05/06/18 05/06/18 05/07/18 05/07/18 05/07/18 07:00 15:00 23:00 07:00 15:00 23:00 Intake Total 514 ml 514 ml 400 ml 995 ml Output Total 650 ml Balance -136 ml 514 ml 400 ml 995 ml Intake Oral 400 ml 480 ml IV Total 514 ml 514 ml 515 ml Output Urine Total 650 ml # Voids 4 3 # Bowel Movements 0 0 Result Diagram: 05/07/18 0910 05/07/18 0910 Other Results LP was done, opening pressures were normal, no evidence of meningitis. Microbiology Date/Time Source Procedure Growth Status 05/04/18 15:44 Blood Peripheral Mycobacterial Culture Pending Received 05/06/18 12:52 Cerebral Spinal Fluid Lumbar Puncture Fungal Smear - Final NO FUNGAL ELEMENTS SEEN. Resulted 05/06/18 12:52 Cerebral Spinal Fluid Lumbar Puncture Fungal Culture Pending Resulted 05/03/18 12:05 Wound Leg Gram Stain - Final Complete 05/03/18 12:05 Wound Culture - Final S. Aureus Mrsa Complete Objective Remarks CONSTITUTIONAL/GEN: normally nourished, in NAD, except for complaint of headache. LUNGS: clear A-P, respiratory effort is normal. CARDIOVASCULAR: NRRR without murmur or gallop. No edema. GI/ABD: soft without masses, without organomegaly. Bowel sounds active NEURO: No focal deficits. SKIN: Erythematous over the dorsum of his hands and forearms. Reduction in the size and color of the circular raised erythematous lesion of his right thigh after drainage of purulent material 05/04. No fluctuance. PSYCH/MENTAL STATUS: Alert and oriented x 3. A/P Assessment and Plan 48 y/o M w/hx of untreated HIV, depression, bipolar disorder, and IV drug use admitted with: Discharge Planning Home today, follow-up with health department for treatment of his HIV. We will follow recommendations of the infectious disease doctors. Attending Attestation Patient was seen and examined today, discussed with the medicine team. He will be discharged today with Fioricet for his headache. He agrees to follow-up with the health department for his HIV. Problem List: (1) Headache ICD Codes: R51 - Headache Status: Acute Plan: Non-febrile, but may not be able to mount immune response. Low WBC count, decreased since admission. Blood cx + x2 for gram + elisha and cocci initially, follow-up blood culture negative Very immunosuppressed: HIV +, absolute CD4 count 29 Susceptible to meningococcemia and others Constant, severe headache w/photosensitivity CT head excludes mass LP done 05-06, opening pressure normal, no evidence of meningitis Currently on Vanc, prophy azithro and bactrim Spoke w/Dr. Toribio, who agrees w/ plan above. F/u results. (2) Bacteremia ICD Codes: R78.81 - Bacteremia Plan: Likely source thought to be skin, however also has bacteremia from gram positive rods and anerobic gram positive cocci. Possibly also from skin, but will await speciation. Blood Cx 05/02 - Aerobic pleomorphic GPR, anaerobic GPC Wound Cx 05/02 - MRSA Wound Cx 15 pending HIV positive status, not on HAART CD4 count 29 IVDU - Echo negative for vegetations Consult ID due to positive blood culture x2 in HIV infected patient with IVDU. Repeat blood cultures show no growth in 1 day. Appreciate ID recs: if neg, abx for skin infxn only (Bactrim) Obtain blood AFB/MAC culture, pending Continue vancomycin dosed per pharmacy for bacteremia Continue Bactrim for cellulitis coverage, PCP prophylaxis Sunday Home Azithromycin 1200 mg weekly for MAC prophylaxis Tylenol PRN for fever (3) Cellulitis of right leg ICD Codes: L03.115 - Cellulitis of right lower limb Status: Chronic Plan: S/p drainage of associated abscess IMPROVED Monitor daily for improvement F/u wound cx - MRSA +, sensitive to Vanc, Bactrim, Levofloxacin (4) HIV (human immunodeficiency virus infection) ICD Codes: B20 - Human immunodeficiency virus [HIV] disease Status: Chronic Plan: Patient now interested in treating his HIV. She will follow-up with the health department. See above plan (5) Umbilical hernia ICD Codes: K42.9 - Umbilical hernia without obstruction or gangrene Status: Chronic Plan: Chronic Painful but reducible Will con't to monitor (6) Drug use ICD Codes: F19.90 - Other psychoactive substance use, unspecified, uncomplicated Status: Acute Plan: UDS + for cocaine and cannabinoids Endocarditis ruled out Monitor clinically Avoid opiate medication as much as possible (7) FEN Plan: Fluids: none Electrolytes: none Nutrition: reg diet DVT prophy: not indicated GI prophy: not indicated Problem Qualifiers (1) Headache: Qualified Codes: G44.52 - New daily persistent headache (ndph) (2) Umbilical hernia: Qualified Codes: K42.9 - Umbilical hernia without obstruction or gangrene Isa Wright MD May 07, 2018 12:43
[2018-05-07] MEDS ORDERED: BUTA1CAP PO (13:28)
[2018-05-07] MEDS ORDERED: SULF1TAB23 PO (13:28)
[2018-05-07] MEDS ORDERED: DOXY100T18 PO (13:28)
--- NOTE | 2018-05-07 13:29 | HHI.DCPOC ---
Discharge Care Plan Diagnosis: (1) HIV (human immunodeficiency virus infection) (2) Cellulitis of right leg (3) Sepsis (4) Bacteremia (5) Headache Goals to Promote Your Health * To prevent worsening of your condition and complications * To maintain your health at the optimal level PLEASE FOLLOW-UP W/THE HEALTH DEPARTMENT FOR HIV TREATMENT Directions to Meet Your Goals Take your medications as prescribed Follow your dietary instruction Follow activity as directed Keep your appointments as scheduled Take your immunizations and boosters as scheduled If your symptoms worsen call your PCP, if no PCP go to Urgent Care Center or Emergency Room Smoking is Dangerous to Your Health. Avoid second hand smoke Call the 24-hour hour crisis hotline for domestic abuse at Rebecca Dutta MD R1 May 07, 2018 13:29
[2018-05-07 16:00] VITALS: BP 137/74; PULSE 61; RESP 18; TEMP 97.4; O2SAT 94
[2018-05-08] MEDS ORDERED: SULFAMETHOXAZOLE-TRIMETHOPRIM DS 800-160 MG TAB PO SCH (09:00)
[2018-05-08 13:04] LABS: IGG CSF 3.9 mg/dL (<=8.1); IGG INDEX CSF 0.55 (<=0.85); IGG/ALBUMIN CSF 0.28 (<=0.21); IGG/ALBUMIN SERUM 0.51 (<=0.40); SYNTHESIS RATE CSF 0.92 mg/24 h (<=12)
[2018-05-12] MEDS ORDERED: PHARMACY ORDERED LAB ONE (09:45)
== END 2018-05-07 17:32 | disposition home or self-care (01) | DRG 975 ==
LOC: NEPC 05:58 → NEDA 10:28 → NEPGCP 14:54 → UNDODISIN 05-03 16:28 → N07B 05-03 16:34
PROVIDERS: ADMIT Family Medicine; ATTEND Family Medicine
PROC: 009U3ZX Drainage of Spinal Canal, Percutaneous Approach, Diagnostic (ICD-10-PCS; principal; 2018-05-06)
DX: B20 Human immunodeficiency virus [HIV] disease (principal); A41.02 Sepsis due to Methicillin resistant Staphylococcus aureus; L03.115 Cellulitis of right lower limb; K74.60 Unspecified cirrhosis of liver; H47.10 Unspecified papilledema; J43.9 Emphysema, unspecified; B37.9 Candidiasis, unspecified; F11.10 Opioid abuse, uncomplicated; J98.11 Atelectasis; B19.20 Unspecified viral hepatitis C without hepatic coma; K42.9 Umbilical hernia without obstruction or gangrene; K59.00 Constipation, unspecified; G44.52 New daily persistent headache (NDPH); F12.90 Cannabis use, unspecified, uncomplicated; F14.10 Cocaine abuse, uncomplicated; F17.210 Nicotine dependence, cigarettes, uncomplicated; F31.9 Bipolar disorder, unspecified; Z66 Do not resuscitate
CPT/HCPCS: 62270; 70450; 71045; 74177; 77003; 80048; 80053; 80202; 80307; 81001; 82040; 82042; 82550; 82552; 82565; 82784; 82945; 83605; 83690; 83735; 84155; 84157; 84484; 85007; 85025; 85027; 85610; 85652; 85730; 86355; 86357; 86359; 86360; 86403; 87015; 87040; 87070; 87077; 87102; 87116; 87147; 87185; 87186; 87205; 87206; 87497; 87529; 87901; 88108; 89051; 93005; 93308; 96361; 96365; 96367; 96375; J1885; J2543; J3370; J7030; J7040; J7050; Q9967

== ENCOUNTER 2018-07-13 08:05 | Observation (INO) ==
[2018-07-13] MEDS ORDERED: Vancomycin Inj 1,000 MG in Sodium Chlor 0.9% Inj 250 ML IV.SIG STA (08:15)
[2018-07-13] MEDS ORDERED: Piperacil/Tazo 4.5 GM Premix 4.5 GM/100 ML BAG IV.SIG STA (08:15)
[2018-07-13] MEDS ORDERED: Sod Chloride 0.9% Inj 1,000 ML IV.SIG ONE (08:17)
--- NOTE | 2018-07-13 08:22 | ED ---
HPI General Chief Complaint: Wound/Laceration Stated Complaint: Weakness Time Seen by Provider: 07/13/18 08:15 Source: patient, EMS, RN notes reviewed and old records reviewed Mode of arrival: EMS Limitations: no limitations History of Present Illness HPI narrative: 48-year-old male presents with right leg pain and redness over the past couple of days. He states he also has had a fever of 102 last night. He states he also feels nauseous. He states that he is on prophylactic antibiotics of Bactrim and azithromycin with his AIDS. He denies being on anything for his leg. He states his primary doctor is through [facility]. He states he has no T cells left in terms of his counts. Onset (ago): day(s) Extremity Location: Right: lower leg Associated symptoms: fever Related Data Previous Rx's Medication Instructions Recorded doxycycline hyclate 100 mg PO BID 10 Days #20 cap 07/08/18 ibuprofen 800 mg PO Q6-8H PRN #20 tab 07/08/18 Allergies Allergy/AdvReac Type Severity Reaction Status Date / Time haloperidol Allergy Severe Swelling Verified 02/04/18 09:42 Review of Systems ROS: all other systems reviewed are negative [facility] Medical History Medical History Anxiety (Acute) Bipolar 1 disorder (Acute) Depression (Acute) Neuropathy (Acute) PTSD (post-traumatic stress disorder) (Acute) Pneumocystosis pneumonia (Acute) Suicidal ideations (Acute) COPD (chronic obstructive pulmonary disease) (Acute) HIV disease (Acute) Hepatitis C (Acute) History of MRSA infection (Acute) Social History Social History Second Hand Smoke Exposure: Yes Smoking Status: Current every day smoker Tobacco Type: Cigarettes How Often Do You Have a Drink Containing Alcohol: Never Recent Travel in [facility] within the Last 8 Weeks: No Recent Out of Country Travel within the Last 8 Weeks: No Exam Narrative Exam Narrative: GENERAL: 48 y/o male in no apparent distress SKIN: Entire anterior right lower leg from knee to ankle is erythematous and warm, he has a couple small subcentimeter open areas without associated abscess or crepitus in this area as well as 1 to his upper thigh, the upper thigh has no surrounding erythema or abscess or crepitus HEAD: Atraumatic. Normocephalic. EYES: Pupils equal and round. No scleral icterus. No injection or drainage. ENT: No nasal bleeding or discharge. Mucous membranes pink and moist. NECK: Trachea midline. CARDIOVASCULAR: Regular rate and rhythm. No murmur appreciated. RESPIRATORY: No accessory muscle use. Clear to auscultation. Breath sounds equal bilaterally. GASTROINTESTINAL: Abdomen soft, non-tender, nondistended. MUSCULOSKELETAL: No obvious deformities. No clubbing. No cyanosis. Pain with palpation of right anterior lower leg, no pain with joints , neurovascularly intact, no lacerations over, compartments soft. NEUROLOGICAL: Awake and alert. No obvious cranial nerve deficits. Motor grossly within normal limits. Normal speech. PSYCHIATRIC: Appropriate mood and affect; insight and judgment normal. Course Reevaluation(s) Reevaluation #1: patient updated and agrees to admit Consultations Consultation #1: resident team agreees to admit Initial Documented Vital Signs Temperature 99.4 F 07/13/18 08:22 Pulse Rate 107 H 07/13/18 08:22 Respiratory Rate 21 07/13/18 08:22 Blood Pressure 161/103 H 07/13/18 08:22 Pulse Oximetry 95 07/13/18 08:22 Last Documented Vital Signs Temperature 99.4 F 07/13/18 08:22 Pulse Rate 96 H 07/13/18 08:29 Respiratory Rate 18 07/13/18 08:29 Blood Pressure 144/86 H 07/13/18 08:29 Pulse Oximetry 96 07/13/18 08:29 Medical Decision Making MDM Narrative Medical decision making narrative: Will check blood work and dose with IV fluids. Given history will place on broad-spectrum coverage of vancomycin and Zosyn and monitor with IV fluid boluses Medical Screen Exam Complete: Yes Emergency Medical Condition: Yes Differential Diagnosis Differential Diagnosis: Cellulitis, UTI, pneumonia, sepsis Lab Data Lab results reviewed: Yes I reviewed the patient's lab results. Result diagrams: 07/13/18 09:05 07/13/18 08:15 Lab Results 07/13/18 07/13/18 07/13/18 Range/Units 08:15 08:30 09:05 WBC 5.2 (4.0-11.0) th/mm3 RBC 4.33 L (4.50-5.90) mil/mm3 Hgb 13.8 (13.0-17.0) gm/dL Hct 39.1 (39.0-51.0) % MCV 90.2 (80.0-100.0) fL MCH 31.9 (27.0-34.0) pg MCHC 35.4 (32.0-36.0) % RDW 13.7 (11.6-17.2) % Plt Count 104 L (150-450) th/mm3 MPV 9.4 (7.0-11.0) fL Neut % (Auto) 73.6 H (16.0-70.0) % Lymph % (Auto) 10.5 (9.0-44.0) % [place] % (Auto) 10.9 H (0.0-8.0) % Eos % (Auto) 4.3 H (0.0-4.0) % Baso % (Auto) 0.7 (0.0-2.0) % Neut # (Auto) 3.8 (1.8-7.7) th/mm3 Lymph # (Auto) 0.5 L (1.0-4.8) th/mm3 [place] # (Auto) 0.6 (0.0-0.9) th/mm3 Eos # (Auto) 0.2 (0.0-0.4) th/mm3 Baso # (Auto) 0.0 (0.0-0.2) th/mm3 WBC Differential . Differential Comment Auto diff final PT (9.8-11.6) sec INR Ratio APTT (24.3-30.1) sec Sodium 142 (136-145) meq/L Potassium 4.1 (3.5-5.1) meq/L Chloride 111 H (98-107) meq/L Carbon Dioxide 23.1 (21.0-32.0) meq/L Anion Gap 8 (5-15) meq/L BUN 20 H (7-18) mg/dL Creatinine 0.85 (0.60-1.30) mg/dL Estimated GFR Greater than 89 (>89) mL/min Random Glucose 98 (74-106) mg/dL Lactic Acid 1.0 (0.4-2.0) mmol/L Calcium 8.4 L (8.5-10.1) mg/dL Phosphorus 2.0 L (2.5-4.9) mg/dL Magnesium 1.6 (1.5-2.5) mg/dL Total Bilirubin 0.5 (0.2-1.0) mg/dL AST 96 H (15-37) U/L ALT 49 (12-78) U/L Alkaline Phosphatase 60 (45-117) U/L Total Creatine Kinase 117 (39-308) U/L CK-MB (CK-2) Less than 1.0 (0.5-3.6) ng/mL Total Protein 8.7 H (6.4-8.2) g/dL Albumin 3.3 L (3.4-5.0) g/dL 07/13/18 Range/Units 09:05 WBC (4.0-11.0) th/mm3 RBC (4.50-5.90) mil/mm3 Hgb (13.0-17.0) gm/dL Hct (39.0-51.0) % MCV (80.0-100.0) fL MCH (27.0-34.0) pg MCHC (32.0-36.0) % RDW (11.6-17.2) % Plt Count (150-450) th/mm3 MPV (7.0-11.0) fL Neut % (Auto) (16.0-70.0) % Lymph % (Auto) (9.0-44.0) % [place] % (Auto) (0.0-8.0) % Eos % (Auto) (0.0-4.0) % Baso % (Auto) (0.0-2.0) % Neut # (Auto) (1.8-7.7) th/mm3 Lymph # (Auto) (1.0-4.8) th/mm3 [place] # (Auto) (0.0-0.9) th/mm3 Eos # (Auto) (0.0-0.4) th/mm3 Baso # (Auto) (0.0-0.2) th/mm3 WBC Differential Differential Comment PT 10.5 (9.8-11.6) sec INR 1.0 Ratio APTT 29.2 (24.3-30.1) sec Sodium (136-145) meq/L Potassium (3.5-5.1) meq/L Chloride (98-107) meq/L Carbon Dioxide (21.0-32.0) meq/L Anion Gap (5-15) meq/L BUN (7-18) mg/dL Creatinine (0.60-1.30) mg/dL Estimated GFR (>89) mL/min Random Glucose (74-106) mg/dL Lactic Acid (0.4-2.0) mmol/L Calcium (8.5-10.1) mg/dL Phosphorus (2.5-4.9) mg/dL Magnesium (1.5-2.5) mg/dL Total Bilirubin (0.2-1.0) mg/dL AST (15-37) U/L ALT (12-78) U/L Alkaline Phosphatase (45-117) U/L Total Creatine Kinase (39-308) U/L CK-MB (CK-2) (0.5-3.6) ng/mL Total Protein (6.4-8.2) g/dL Albumin (3.4-5.0) g/dL Imaging Data Attestation: I personally reviewed and interpreted this imaging study as follows : Radiologist's impression: Chest X-Ray 07/13/18 08:15 CONCLUSION: No acute cardiopulmonary disease Discharge Plan Discharge Disposition Patient Disposition: 30 Still Patient Discharge Condition Condition: Stable Discharge Details Diagnosis: Cellulitis, Fever Physicians Team ED Provider: Lacy Romano Primary Care Provider: Primary Care Parul Benson Rxs /Orders / Referrals /Forms Prescriptions: No Action doxycycline hyclate 100 mg capsule 100 mg PO BID 10 Days Qty: 20 RF: 0 ibuprofen 800 mg tablet 800 mg PO Q6-8H PRN (Reason: fever or pain) Qty: 20 RF: 0 Discharge Interventions Interventions: Vital Signs Last Done: 07/13/18 08:29 Status ED Status: Admitted Observation Patient
--- NOTE | 2018-07-13 09:11 | XR ---
EXAM DATE: 07/13/2018 9:07 AM EDT AGE/SEX: 48 years / Male INDICATIONS: Shortness of breath and fever. CLINICAL DATA: This is the patient's initial encounter. Patient reports that signs and symptoms have been present for 2 days and indicates a pain score of 0/10. MEDICAL/SURGICAL HISTORY: Emphysema. Chronic obstructive pulmonary disease. Asthma. None. COMPARISON: [facility] [place] [facility], 05/02/2018. . FINDINGS: A single AP view of the chest demonstrates the lungs to be symmetrically aerated without evidence of mass, infiltrate or effusion. The cardiomediastinal contours are unremarkable. Osseous structures a re intact. CONCLUSION: No acute cardiopulmonary disease Electronically signed by: Serge Del Toro MD 07/13/2018 9:10 AM EDT
[2018-07-13 09:12] LABS: Alanine Aminotransferase 49 U/L (12-78)
[2018-07-13 09:16] LABS: Albumin 3.3 g/dL (3.4-5.0); Alkaline Phosphatase 60 U/L (45-117); Anion Gap 8 meq/L (5-15); Aspartate Aminotransferase 96 U/L (15-37); Blood Urea Nitrogen 20 mg/dL (7-18); Calcium 8.4 mg/dL (8.5-10.1); Carbon Dioxide 23.1 meq/L (21.0-32.0); Chloride 111 meq/L (98-107); Creatine Kinase 117 U/L (39-308); Glomerular Filtration Rate Greater Than 89 mL/min (>89); Glucose,Random 98 mg/dL (74-106); Magnesium 1.6 mg/dL (1.5-2.5); Potassium 4.1 meq/L (3.5-5.1); Sodium 142 meq/L (136-145); Total Protein 8.7 g/dL (6.4-8.2)
[2018-07-13 09:30] LABS: Baso % (Auto) 0.7 % (0.0-2.0); Eos # (Auto) 0.2 th/mm3 (0.0-0.4); Eos % (Auto) 4.3 % (0.0-4.0); Hematocrit 39.1 % (39.0-51.0); Hemoglobin 13.8 gm/dL (13.0-17.0); Lymph # (Auto) 0.5 th/mm3 (1.0-4.8); Lymph % (Auto) 10.5 % (9.0-44.0); Mean Corpuscular HGB Conc 35.4 % (32.0-36.0); Mean Corpuscular Hemoglobin 31.9 pg (27.0-34.0); Mean Corpuscular Volume 90.2 fL (80.0-100.0); Mean Platelet Volume 9.4 fL (7.0-11.0); Mono # (Auto) 0.6 th/mm3 (0.0-0.9); Mono % (Auto) 10.9 % (0.0-8.0); Neut # (Auto) 3.8 th/mm3 (1.8-7.7); Neut % (Auto) 73.6 % (16.0-70.0); Platelet Count 104 th/mm3 (150-450); Red Blood Count 4.33 mil/mm3 (4.50-5.90); Red Cell Distribution Width 13.7 % (11.6-17.2); White Blood Count 5.2 th/mm3 (4.0-11.0)
[2018-07-13 09:39] LABS: Activated Partial Thrombo Time 29.2 sec (24.3-30.1); Prothrombin Time 10.5 sec (9.8-11.6)
[2018-07-13] MEDS ORDERED: Bisacodyl 10 MG Supp RECTAL PRN (10:41)
[2018-07-13] MEDS ORDERED: Naloxone Inj 0.4 MG/ML Vial IV.PUSH PRN (10:44)
--- NOTE | 2018-07-13 10:47 | XR ---
EXAM DATE: 07/13/2018 10:40 AM EDT AGE/SEX: 48 years / Male INDICATIONS: Right anterior lower leg pain. Patient states possible infection. CLINICAL DATA: This is the patient's initial encounter. Patient reports that signs and symptoms have been present for 2 weeks and indicates a pain score of 5/10. MEDICAL/SURGICAL HISTORY: None. Angioplasty. COMPARISON: No prior exams available for comparison. FINDINGS: Bony structures are intact and in normal alignment. Osseous density is normal. Soft tissue swelling anteriorly. No radiopaque foreign bodies seen. No acute bony abnormality. No periosteal reaction. CONCLUSION: Anterior soft tissue swelling Electronically signed by: Serge Del Toro MD 07/13/2018 10:45 AM EDT
[2018-07-13] MEDS: Sod Chloride 0.9% Inj 1,000 ML IV.CONT SCH ×3 (10:55→13:47)
[2018-07-13 10:58] LABS: Bacteria,Urine Occasional /hpf; Bilirubin,Urine Negative (Negative); Clarity,Urine Clear (Clear); Color,Urine Yellow (Yellw/Straw); Glucose,Urine (UA) Negative (Negative); Leukocyte Esterase,Urine Negative (Negative); Mucus,Urine Few /lpf (Occasional); Nitrite,Urine Negative (Negative)
--- NOTE | 2018-07-13 11:07 | P.HPFP ---
History of Present Illness Primary Care Physician: No Primary Care Physician Chief Complaint: Right leg pain History of Present Illness: 48-year-old male past medical history HIV, COPD, hep C, bipolar presents with right leg pain and sores. He said that the sores started 1 week ago in his thigh to 3 days ago on his calf. Since then they have become more painful, raised, and larger. He was seen in the ED a couple of days ago was given doxycycline, but did not take the medication because he thought it was unnecessary being on Bactrim and azithromycin for his HIV prophylaxis. He said the pain is pulsating radiating to his thigh and ankle. He says it is worse with pressure and walking. Tylenol provided no relief. He has had fever for the past 2 days and nausea and vomiting this morning. He denies any chest pain or diarrhea. He was admitted to the hospital 2 months ago for a MRSA cellulitis and was treated with vancomycin. At that time he also had headaches and had a lumbar puncture done that was negative. Was bacteremic and cultures grew gram + rods and cocci. His CD4 count at that time was 29 and his urine drug screen was positive for cannabinoids and cocaine. Today he is still having headaches but they are not as severe. He has not received any HIV viral treatment for the past 5-6 years. He lives at home with his sister and is on disability. He smokes weed but denies any other drug use. Was a heroin addict 8 years ago. - Diagnosis (1) Cellulitis (2) HIV (human immunodeficiency virus infection) (3) COPD (chronic obstructive pulmonary disease) (4) Nausea (5) Nutrition, metabolism, and development symptoms Review of Systems Constitutional: Reports chills, Reports fever(s), Reports headache(s) Cardiovascular: Denies chest pain Respiratory: Reports shortness of breath Gastrointestinal: Reports constipation, Reports nausea, Reports vomiting, Denies abdominal pain, Denies bright, red blood in stools Genitourinary: Denies painful urination, Denies urinary frequency Musculoskeletal: Reports body aches Neurologic: Reports headache(s) PMF - History History 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, 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 - Medical / Surgical Hx Neg / Unobtainable Surgical History: No Previous Surgery - Medical History Medical History: Medical History (Last Updated 07/13/18 @ 08:24 by Denise Tiwari) Anxiety Bipolar 1 disorder Depression Neuropathy PTSD (post-traumatic stress disorder) Pneumocystosis pneumonia Suicidal ideations COPD (chronic obstructive pulmonary disease) HIV disease Hepatitis C History of MRSA infection - Tobacco History Second Hand Smoke Exposure: Yes Tobacco Use In Past 30 Days: Yes Smoking Status: Current every day smoker Tobacco Type: Cigarettes - Alcohol History How Often Do You Have a Drink Containing Alcohol: Never - Substance Use Type Marijuana Status: Active Route Used: Inhalation Reason for Use: Calm Down - Travel History Recent Travel in the [place] Within the Last 8 Weeks: No Recent Travel Out of the Country Within the Last 8 Weeks: No - Immunization History Tetanus Immunization: <5 Years Hx Influenza Vaccine This Season: Yes Medications and Allergies Active Medications: Active Medications Al Hydroxide/Mg Hydroxide (Milk Of Magnangie Liq) 30 ml PO Q12H PRN PRN Reason: Mild Constipation Bisacodyl (Dulcolax Supp) 10 mg RECTAL DAILY PRN PRN Reason: SEVERE CONSITIPATION Enoxaparin Sodium (Lovenox Inj) 40 mg SQ Q24H [facility] Sodium Chloride (Ns Inj) 1,000 mls @ 70 mls/hr IV.CONT .[id number] MINOR Ibuprofen (Motrin) 400 mg PO Q6H PRN PRN Reason: PAIN SCALE 1 TO 2 Naloxone HCl (Narcan Inj) 0.4 mg IV.PUSH UNSCH PRN PRN Reason: SEE LABEL COMMENTS Ondansetron HCl (Zofran Odt) 4 mg PO Q6H PRN PRN Reason: NAUSEA Oxycodone/Acetaminophen (Percocet 10/325 Mg) 1 tab PO Q6H PRN PRN Reason: PAIN SCALE 6 TO 10 Oxycodone/Acetaminophen (Percocet 5/325 Mg) 1 tab PO Q6H PRN PRN Reason: PAIN SCALE 3 TO 5 Senna/Docusate Sodium (Misa-Colace) 1 tab PO BID MINOR Sennosides (Senokot) 17.2 mg PO Q12H PRN PRN Reason: Moderate Constipation Allergies Allergy/AdvReac Type Severity Reaction Status Date / Time haloperidol Allergy Severe Swelling Verified 02/04/18 09:42 Exam Vital signs: Vital Signs 07/13/18 08:22 07/13/18 08:29 07/13/18 09:29 Temperature 99.4 F Pulse Rate 107 H 96 H 100 H Respiratory Rate 21 18 21 Blood Pressure 161/103 H 144/86 H 140/86 Pulse Oximetry 95 96 97 Intake & Output 07/12/18 07/13/18 07/13/18 18:59 06:59 18:59 Weight 102.058 kg - Constitutional mild distress Comments: Physically shaking - Detailed Respiratory Exam bilateral Present: rales, wheezes Comments: good air movement - Routine Cardiovascular Exam Present: RRR, S1, S2. Absent: murmur - Routine Abdominal Exam Present: soft. Absent: tenderness Comments: Umbilical hernia with central induration and discoloration. Erythematous. - Detailed Lower Extremity Exam Comments: 4 cm sore on lateral right thigh with central scab and surrounding erythema. Sore on tibia and sore lateral calf 2 cm with surrounding erythema. Calf warm to touch. 2+ posterior tibialis and dorsal pulses. Tender to palpation Results - Labs Result diagrams: 07/13/18 09:05 07/13/18 08:15 Abnormal lab results 07/13/18 07/13/18 Range/Units 08:15 09:05 RBC 4.33 L (4.50-5.90) mil/mm3 Plt Count 104 L (150-450) th/mm3 Neut % (Auto) 73.6 H (16.0-70.0) % [place] % (Auto) 10.9 H (0.0-8.0) % Eos % (Auto) 4.3 H (0.0-4.0) % Lymph # (Auto) 0.5 L (1.0-4.8) th/mm3 Chloride 111 H (98-107) meq/L BUN 20 H (7-18) mg/dL Calcium 8.4 L (8.5-10.1) mg/dL Phosphorus 2.0 L (2.5-4.9) mg/dL AST 96 H (15-37) U/L Total Protein 8.7 H (6.4-8.2) g/dL Albumin 3.3 L (3.4-5.0) g/dL Short CBC 07/13/18 Range/Units 09:05 WBC 5.2 (4.0-11.0) th/mm3 Hgb 13.8 (13.0-17.0) gm/dL Hct 39.1 (39.0-51.0) % Plt Count 104 L (150-450) th/mm3 BMP 07/13/18 08:15 Sodium 142 Potassium 4.1 Chloride 111 H Carbon Dioxide 23.1 BUN 20 H Creatinine 0.85 Calcium 8.4 L Cardiac Enzymes 07/13/18 Range/Units 08:15 Total Creatine Kinase 117 (39-308) U/L CK-MB (CK-2) Less than 1.0 (0.5-3.6) ng/mL Liver Function 07/13/18 Range/Units 08:15 Total Bilirubin 0.5 (0.2-1.0) mg/dL AST 96 H (15-37) U/L ALT 49 (12-78) U/L Alkaline Phosphatase 60 (45-117) U/L Albumin 3.3 L (3.4-5.0) g/dL - Imaging Impressions Chest X-Ray 07/13/18 08:15 CONCLUSION: No acute cardiopulmonary disease Tibia/Fibula X-Ray 07/13/18 10:01 CONCLUSION: Anterior soft tissue swelling Caprini VTE Risk Assessment Caprini VTE Risk Assessment: Moderate/High Risk (score >= 2) Caprini Risk Assessment Model: Point Value = 1 Point Value = 2 Point Value = 3 Point Value = 5 Age 41-60 Minor surgery BMI > 25 kg/m2 Swollen legs Varicose veins or History of unexplained or recurrent spontaneous Oral contraceptives or hormone replacement Sepsis (< 1 month) Serious lung disease, including pneumonia (< 1 month) Abnormal pulmonary function Acute myocardial infarction Congestive heart failure (< 1 month) History of inflammatory bowel disease Medical patient at bed rest Age 61-74 Arthroscopic surgery Major open surgery (> 45 min) Laparoscopic surgery (> 45 min) Malignancy Confined to bed (> 72 hours) Immobilizing plaster cast Central venous access Age >= 75 History of VTE Family history of VTE Factor V Leiden Prothrombin [id number] Lupus anticoagulant Anticardiolipin antibodies Elevated serum homocysteine Heparin-induced thrombocytopenia Other congenital or acquired thrombophilia Stroke (< 1 month) Elective arthroplasty Hip, pelvis, or leg fracture Acute spinal cord injury (< 1 month) Prophylaxis Regimen: Total Risk Factor Score Risk Level Prophylaxis Regimen 0-1 Low Early ambulation 2 Moderate Order ONE of the following: *Sequential Compression Device (SCD) *Heparin 5000 units SQ BID 3-4 Higher Order ONE of the following medications: *Heparin 5000 units SQ TID *Enoxaparin/Lovenox 40 mg SQ daily (WT < 150 kg, CrCl > 30 mL/min) *Enoxaparin/Lovenox 30 mg SQ daily (WT < 150 kg, CrCl > 10-29 mL/min) *Enoxaparin/Lovenox 30 mg SQ BID (WT < 150 kg, CrCl > 30 mL/min) AND/OR *Sequential Compression Device (SCD) 5 or more Highest Order ONE of the following medications: *Heparin 5000 units SQ TID (Preferred with Epidurals) *Enoxaparin/Lovenox 40 mg SQ daily (WT < 150 kg, CrCl > 30 mL/min) *Enoxaparin/Lovenox 30 mg SQ daily (WT < 150 kg, CrCl > 10-29 mL/min) *Enoxaparin/Lovenox 30 mg SQ BID (WT < 150 kg, CrCl > 30 mL/min) AND *Sequential Compression Device (SCD) Assessment and Plan - Assessment (1) Cellulitis Code(s): L03.90 - Cellulitis, unspecified Status: Acute Plan: 3 day history of sore on thigh and 2 sores on calf with surrounding erythema and fever. History of cellulitis 2 months ago MRSA positive that resolved. -Vancomycin and Zosyn -Blood cultures pending -ID consult given AIDS history -X ray lower R leg for osteomyelitis; consider ESR -US Doppler to rule out DVT and assess abscess -Normal saline fluids 70 mL/h -Pain scale with Motrin and Percocet (2) HIV (human immunodeficiency virus infection) Code(s): B20 - Human immunodeficiency virus [HIV] disease Status: Acute Plan: Admission in April CD4 was 29. Has not received any antiviral therapy in 5 years. At home on prophylaxis azithromycin 2 pills every Sunday and Bactrim daily. -ID consult on antibiotics and prophylactic therapy -Given not on antiviral therapy and recent workup in April wait for ID recommendations on further workup (3) COPD (chronic obstructive pulmonary disease) Code(s): J44.9 - Chronic obstructive pulmonary disease, unspecified Status: Acute Plan: Shortness of breath at rest. Been prescribed home medication but currently not on any. -Alternate albuterol and DuoNebs (4) Nausea Code(s): R11.0 - Nausea Status: Acute Plan: Zofran as needed nausea (5) Nutrition, metabolism, and development symptoms Code(s): R63.8 - Other symptoms and signs concerning food and fluid intake Status: Acute Plan: Diet: Regular Prophylaxis: Lovenox Electrolytes: Replete as needed - Assessment and Plan 48-year-old male past medical history of HIV, hep C, bipolar, COPD who presented with right leg pain and sores. Clinical picture consistent with cellulitis. X-rays of right leg to assess for osteomyelitis. Right leg ultrasound Doppler to rule out DVT and assess for abscess. Started on Vanco and Zosyn. History of MRSA cellulitis and bacteremia with gram-positive negative rods back in April. CD4 count at that time 29 and currently not receiving active HIV antiviral therapy. ID consulted. Blood cultures pending. Follow-up on urine drug screen. Disposition:unknown Discharge: home (1) Cellulitis Qualifiers: Site of cellulitis: extremity Site of cellulitis of extremity: lower extremity Laterality: right Qualified Code(s): L03.115 - Cellulitis of right lower limb
[2018-07-13] MEDS: oxyCODONE/Acetaminophen 10/325 Tablet PO PRN ×3 (11:52→23:15)
--- NOTE | 2018-07-13 13:09 | P.CONID ---
History of Present Illness Service: Infectious disease Consult date: 07/13/18 Requesting Physician: Laurence Lino Reason for Consult: Evaluate patient with HIV and right leg cellulitis Primary Care Provider: No Primary Care Physician Family Provider: No Primary Care Physician Chief Complaint: Right leg pain History of Present Illness: Patient seen and examined. Records reviewed. Patient is a 48-year-old male, presented to the hospital complaining of sores in the right leg 1 week. Patient states he gets this worse in both legs and he also gets them in his upper extremity and he does not know how he gets them. He was seen in the ED on July 08, and he was given doxycycline for the abscess in his right thigh, but patient apparently did not take his antibiotic because he was already on antibiotic for his HIV. He was in the hospital in April and he had multiple skin abscesses in his right lower extremity that cultured out MRSA. He got better. When he started getting the source and right leg, he started noticing redness, and started experiencing some pain. He felt feverish. He does not remember getting any insect bites. He also has had some itching that is generalized. He seemed to have some kind of a rash and is not a very good historian but he thinks they have been present for a couple weeks. He denies any respiratory complaint, and he has had no GI or any urinary complaints. He has had problem with on and off headache. Patient has known bipolar disorder, and he stopped taking his lithium about 6 months ago. He stated that he has trouble getting his blood work done regularly for the lithium levels. Patient also has known HIV since early 1999, but he has not been on any HIV medication in the last 5-6 years, and has not really followed up with any HIV provider. His last CD4 count from April was 29. Patient lives at home with his sister and the 2 kids of the sister. She had 2 dogs at home. Infectious disease consultation has been requested to evaluate the patient with HIV and cellulitis of the right leg. Review of Systems Constitutional: Reports chills, Reports fever(s), Reports headache(s) Eyes: Denies discharge, Denies dry eyes Ears, Nose, Mouth, and Throat: Reports ear pain, Denies ear discharge, Denies facial pain, Denies nasal congestion, Denies nasal discharge, Denies pain with swallowing, Denies sore throat Cardiovascular: Denies chest pain, Denies shortness of breath Respiratory: Denies cough, Denies shortness of breath Gastrointestinal: Denies abdominal pain, Denies loose stools, Denies nausea, Denies pain with swallowing, Denies vomiting Genitourinary: Denies painful urination Musculoskeletal: Denies joint pain, Denies joint swelling Skin/Breast: Reports rash, Reports sores Neurologic: Reports headache(s), Denies localized weakness Psychiatric: Reports other (Hx bipolar disorder, not on meds x 6 months) [facility] - History History 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, 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 - Medical History Medical History: Medical History (Last Updated 07/13/18 @ 08:24 by Denise Tiwari) Anxiety Bipolar 1 disorder Depression Neuropathy PTSD (post-traumatic stress disorder) Pneumocystosis pneumonia Suicidal ideations COPD (chronic obstructive pulmonary disease) HIV disease Hepatitis C History of MRSA infection - Tobacco History Second Hand Smoke Exposure: Yes Tobacco Use In Past 30 Days: Yes Smoking Status: Current every day smoker Tobacco Type: Cigarettes - Alcohol History How Often Do You Have a Drink Containing Alcohol: Never - Substance Use Type Marijuana Status: Active Route Used: Inhalation Reason for Use: Calm Down - Travel History Recent Travel in the [place] Within the Last 8 Weeks: No Recent Travel Out of the Country Within the Last 8 Weeks: No - Immunization History Tetanus Immunization: <5 Years Hx Influenza Vaccine This Season: Yes Medications and Allergies Active Medications: Active Medications Al Hydroxide/Mg Hydroxide (Milk Of Corby Lielva) 30 ml PO Q12H PRN PRN Reason: Mild Constipation Albuterol (Duoneb Neb (Michelle)) 1 ampul NEB Q6HR NEB [facility] Albuterol (Albuterol Neb (Prn)) 2.5 mg NEB Q2HR NEB PRN PRN Reason: SHORTNESS OF BREATH Bisacodyl (Dulcolax Supp) 10 mg RECTAL DAILY PRN PRN Reason: SEVERE CONSITIPATION Enoxaparin Sodium (Lovenox Inj) 40 mg SQ Q24H [facility] Sodium Chloride (Ns Inj) 1,000 mls @ 70 mls/hr IV.CONT .[id number] [facility] Last Admin: 07/13/18 12:43 Dose: Not Given Ibuprofen (Motrin) 400 mg PO Q6H PRN PRN Reason: PAIN SCALE 1 TO 2 Naloxone HCl (Narcan Inj) 0.4 mg IV.PUSH UNSCH PRN PRN Reason: SEE LABEL COMMENTS Ondansetron HCl (Zofran Odt) 4 mg PO Q6H PRN PRN Reason: NAUSEA Oxycodone/Acetaminophen (Percocet 10/325 Mg) 1 tab PO Q6H PRN PRN Reason: PAIN SCALE 6 TO 10 Last Admin: 07/13/18 11:52 Dose: 1 tab Oxycodone/Acetaminophen (Percocet 5/325 Mg) 1 tab PO Q6H PRN PRN Reason: PAIN SCALE 3 TO 5 Senna/Docusate Sodium (Misa-Colace) 1 tab PO BID MICHELLE Sennosides (Senokot) 17.2 mg PO Q12H PRN PRN Reason: Moderate Constipation Allergies Allergy/AdvReac Type Severity Reaction Status Date / Time haloperidol Allergy Severe Swelling Verified 07/13/18 11:54 Home Medications Medication Instructions Recorded Confirmed Type sulfamethoxazole-trimethoprim 1 tab PO DAILY 07/13/18 07/13/18 History [Bactrim DS] Exam Vital signs: Vital Signs 07/13/18 08:22 07/13/18 08:29 07/13/18 09:29 Temperature 99.4 F Pulse Rate 107 H 96 H 100 H Respiratory Rate 21 18 21 Blood Pressure 161/103 H 144/86 H 140/86 Pulse Oximetry 95 96 97 07/13/18 10:42 Temperature Pulse Rate 114 H Respiratory Rate 18 Blood Pressure 142/77 H Pulse Oximetry Intake & Output 07/12/18 07/13/18 07/13/18 18:59 06:59 18:59 Intake Total 1350 / 1350 Balance 1350 / 1350 Weight 102.058 kg Intake: IV 1350 / 1350 Zosyn 4.5 GM Premix 4.5 gm In 100 / 100 100 ml @ 200 mls/hr IV.SIG STAT STA Rx#:[id number] NS Inj 1,000 ML @ Wide Open IV. 1000 / 1000 SIG BOLUS ONE Rx#:[id number] Vancomycin Inj 1,000 MG In NS 250 / 250 Inj 250 ML @ 250 mls/hr IV.SIG STAT STA Rx#:[id number] Narrative: Physical Examination GENERAL: Patient is a well-nourished, well-developed make, awake and alert, not in respiratory distress. He has flushed face SKIN: Warm and dry. Has red maculopapular rash very prominent in his RUE, and some seen in LUE and BLE, and lateral trunk. HEAD: Atraumatic. Normocephalic. No temporal wasting, or tenderness. EYES: [place] conjunctiva. Has bilateral conjunctival injection. Pupils equal, round and reactive to light. Extraocular movements full and intact. No scleral icterus. EARS, NOSE AND THROAT: Nose without bleeding or purulent nasal discharge. No sinus tenderness. Mucous membranes pink and moist. Has oral thrush NECK: Trachea midline. Supple and not tender, no meningeal signs CARDIOVASCULAR: Regular rate and rhythm. No murmurs, rubs or gallops heard RESPIRATORY: Clear to auscultation. Breath sounds equal bilaterally. No rales , wheezing or rhonchi ABDOMEN: Soft, non-tender, nondistended. He has umbilical hernia with dry round wound at top of hernia about 1 cm size. Bowel sounds present and normoactive. No guarding. No rebound. No organomegaly. EXTREMITIES: No clubbing, cyanosis. RLE is slightly larger than LLE, with erythema over distal thigh and upper 2/3 of leg. He has scattered dry wounds with eschar with BUE and BLE. .No joint effusion, has good ROM. No calf tenderness. Well perfused and warm. NEUROLOGICAL: Awake and alert. Cranial nerves grossly intact. Motor grossly within normal limits. PSYCHIATRIC: cooperative somewhat anxious. LINE: No evidence of infection Results - Labs CBC & Chem 7: 07/13/18 09:05 07/13/18 08:15 Labs: Laboratory Results - last 24 hr 07/13/18 07/13/18 07/13/18 08:15 08:30 09:05 WBC 5.2 RBC 4.33 L Hgb 13.8 Hct 39.1 MCV 90.2 MCH 31.9 MCHC 35.4 RDW 13.7 Plt Count 104 L MPV 9.4 Neut % (Auto) 73.6 H Lymph % (Auto) 10.5 [place] % (Auto) 10.9 H Eos % (Auto) 4.3 H Baso % (Auto) 0.7 Neut # (Auto) 3.8 Lymph # (Auto) 0.5 L [place] # (Auto) 0.6 Eos # (Auto) 0.2 Baso # (Auto) 0.0 WBC Differential . Differential Comment Auto diff final PT INR APTT Sodium 142 Potassium 4.1 Chloride 111 H Carbon Dioxide 23.1 Anion Gap 8 BUN 20 H Creatinine 0.85 Estimated GFR Greater than 89 Random Glucose 98 Lactic Acid 1.0 Calcium 8.4 L Phosphorus 2.0 L Magnesium 1.6 Total Bilirubin 0.5 AST 96 H ALT 49 Alkaline Phosphatase 60 Total Creatine Kinase 117 CK-MB (CK-2) Less than 1.0 Total Protein 8.7 H Albumin 3.3 L Urine Color Urine Clarity Urine pH Ur Specific [place] Urine Protein Urine Glucose (UA) Urine Ketones Urine Occult Blood Urine Nitrate Urine Bilirubin Urine Urobilinogen Ur Leukocyte Esterase Urine RBC Urine WBC Urine Bacteria Urine Mucus Micro UA Comment Ur Microscopic Review Urine Culture Comments 07/13/18 07/13/18 09:05 10:35 WBC RBC Hgb Hct MCV MCH MCHC RDW Plt Count MPV Neut % (Auto) Lymph % (Auto) [place] % (Auto) Eos % (Auto) Baso % (Auto) Neut # (Auto) Lymph # (Auto) [place]pson # (Auto) Eos # (Auto) Baso # (Auto) WBC Differential Differential Comment PT 10.5 INR 1.0 APTT 29.2 Sodium Potassium Chloride Carbon Dioxide Anion Gap BUN Creatinine Estimated GFR Random Glucose Lactic Acid Calcium Phosphorus Magnesium Total Bilirubin AST ALT Alkaline Phosphatase Total Creatine Kinase CK-MB (CK-2) Total Protein Albumin Urine Color Yellow Urine Clarity Clear Urine pH 6.0 Ur Specific [place] 1.030 Urine Protein 100 H Urine Glucose (UA) Negative Urine Ketones Negative Urine Occult Blood Moderate H Urine Nitrate Negative Urine Bilirubin Negative Urine Urobilinogen 2.0 H Ur Leukocyte Esterase Negative Urine RBC 50 H Urine WBC 3 Urine Bacteria Occasional H Urine Mucus Few H Micro UA Comment Culture not ind Ur Microscopic Review Not Reportable Urine Culture Comments Culture not ind - Imaging Impressions Chest X-Ray 07/13/18 08:15 CONCLUSION: No acute cardiopulmonary disease Tibia/Fibula X-Ray 07/13/18 10:01 CONCLUSION: Anterior soft tissue swelling Assessment and Plan - Plan Impression Cellulitis RLE Multiple dry wounds in extremities, previous had abscess in his RLE April 2018, ?insect bites Skin rash, etiology, has flushed face, korin conjunctival injection, ?drug eruption - no new meds - ?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
--- NOTE | 2018-07-13 13:42 | US ---
EXAM DATE: 07/13/2018 1:36 PM EDT AGE/SEX: 48 years / Male INDICATIONS: Right lower extremity pain. CLINICAL DATA: This is the patient's initial encounter. Patient reports that signs and symptoms have been present for 1 week and indicates a pain score of 6/10. MEDICAL/SURGICAL HISTORY: . Human immunodeficiency virus. Hepatitis C. Chronic obstructive pu lmonary disease. None. COMPARISON: No prior exams available for comparison. TECHNIQUE: Venous ultrasound of both lower extremities was performed from the inguinal ligament to t he proximal calf. Real-time, color Doppler and spectral tracing, compression and augmentation techni ques were used. FINDINGS: Normal compression of the deep venous system from the inguinal region to the proximal calf . No echogenic clot is seen. Normal response of the venous system to augmentation and respiration. CONCLUSION: No venous thrombosis is identified in the right lower extremity. Electronically signed by: Zheng Christian MD 07/13/2018 1:41 PM EDT
[2018-07-13] MEDS: Enoxaparin Inj 40 MG/0.4 ML Syringe SQ SCH (13:47)
[2018-07-13] MEDS: levoFLOXacin 750 MG Tablet PO SCH (14:36)
[2018-07-13 15:37] LABS: Amphetamine Screen,Urine Neg (Neg); Barbiturate Screen,Urine Neg (Neg); Cannabinoid Screen,Urine Pos (Neg); Cocaine Screen,Urine Neg (Neg)
[2018-07-13 15:38] LABS: Opiate Screen,Urine Neg (Neg)
[2018-07-13] MEDS: Ibuprofen 400 MG Tablet PO PRN (16:00)
[2018-07-13] MEDS: Fluconazole 100 MG Tablet PO SCH (16:12)
[2018-07-13] MEDS: Senna/Docusate Sodium 8.6/50 MG Tablet PO SCH (20:39)
[2018-07-14] MEDS: Sod Chloride 0.9% Inj 1,000 ML IV.CONT SCH (00:31)
[2018-07-14] MEDS: oxyCODONE/Acetaminophen 10/325 Tablet PO PRN ×4 (05:04→21:45)
[2018-07-14 08:35] LABS: Hematocrit 31.4 % (39.0-51.0); Hemoglobin 11.1 gm/dL (13.0-17.0); Mean Corpuscular HGB Conc 35.2 % (32.0-36.0); Mean Corpuscular Hemoglobin 32.2 pg (27.0-34.0); Mean Corpuscular Volume 91.6 fL (80.0-100.0); Mean Platelet Volume 8.8 fL (7.0-11.0); Platelet Count 77 th/mm3 (150-450); Red Blood Count 3.43 mil/mm3 (4.50-5.90); Red Cell Distribution Width 14.3 % (11.6-17.2)
[2018-07-14 09:03] LABS: Alanine Aminotransferase 36 U/L (12-78); Albumin 2.6 g/dL (3.4-5.0); Alkaline Phosphatase 44 U/L (45-117); Anion Gap 9 meq/L (5-15); Aspartate Aminotransferase 59 U/L (15-37); Blood Urea Nitrogen 16 mg/dL (7-18); Calcium 7.5 mg/dL (8.5-10.1); Carbon Dioxide 23.8 meq/L (21.0-32.0); Chloride 107 meq/L (98-107); Glomerular Filtration Rate Greater Than 89 mL/min (>89); Glucose,Random 94 mg/dL (74-106); Potassium 3.3 meq/L (3.5-5.1); Sodium 140 meq/L (136-145); Total Protein 6.8 g/dL (6.4-8.2)
[2018-07-14 09:10] LABS: Eosinophils 6 % (0-4); Lymphocytes 9 % (9-44); Monocytes 10 % (0-8)
[2018-07-14 09:11] LABS: Ovalocytes 1+; Platelet Morphology Normal (Normal)
[2018-07-14] MEDS: Fluconazole 100 MG Tablet PO SCH (09:19)
[2018-07-14] MEDS: levoFLOXacin 750 MG Tablet PO SCH (09:19)
[2018-07-14] MEDS: Senna/Docusate Sodium 8.6/50 MG Tablet PO SCH ×2 (09:19→21:43)
--- NOTE | 2018-07-14 10:06 | P.HPFP ---
History of Present Illness Primary Care Physician: No Primary Care Physician Chief Complaint: Right leg pain History of Present Illness: 48-year-old male past medical history HIV, COPD, hep C, bipolar presents with right leg pain and sores. He said that the sores started 1 week ago in his thigh to 3 days ago on his calf. Since then they have become more painful, raised, and larger. He was seen in the ED a couple of days ago was given doxycycline, but did not take the medication because he thought it was unnecessary being on Bactrim and azithromycin for his HIV prophylaxis. He said the pain is pulsating, radiating to his thigh and ankle. He says it is worse with pressure and walking. Tylenol provided no relief. He has had fever for the past 2 days and nausea and vomiting this morning. He denies any chest pain or diarrhea. He was admitted to the hospital 2 months ago for a MRSA cellulitis and was treated with vancomycin. At that time he also had headaches and had a lumbar puncture done that was negative. Was bacteremic and cultures grew gram + rods and cocci. His CD4 count at that time was 29 and his urine drug screen was positive for cannabinoids and cocaine. Today he is still having headaches but they are not as severe. He has not received any HIV viral treatment for the past 5-6 years. He lives at home with his sister and is on disability. He smokes weed but denies any other drug use. Was a heroin addict 8 years ago. On discussion with him, he knows that not taking his HIV medicines will kill him in the long run. He states he just wants to be comfortable for the rest of his life. He has lost 40 or 50 lbs in the last 6 months. He has fevers often and is end stage for his HIV/AIDS. Based on his wishes and his decline, he wants to meet with hospice today. He also wants to meet with case management to see about a new place to live. He is on po meds for his cellulitis and is stable physically. 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 - Medical History Medical History: Medical History (Last Updated 07/13/18 @ 08:24 by Denise Tiwari) Anxiety Bipolar 1 disorder Depression Neuropathy PTSD (post-traumatic stress disorder) Pneumocystosis pneumonia Suicidal ideations COPD (chronic obstructive pulmonary disease) HIV disease Hepatitis C History of MRSA infection - Tobacco History Second Hand Smoke Exposure: Yes Tobacco Use In Past 30 Days: Yes Smoking Status: Current every day smoker Tobacco Type: Cigarettes - Alcohol History How Often Do You Have a Drink Containing Alcohol: Never - Substance Use History Substance History: Past History - Substance Use Type Marijuana Status: Active Route Used: Inhalation Reason for Use: Calm Down - Travel History Recent Travel in the [place] Within the Last 8 Weeks: No Recent Travel Out of the Country Within the Last 8 Weeks: No - Immunization History Tetanus Immunization: <5 Years Hx Influenza Vaccine This Season: Yes Medications and Allergies Active Medications: Active Medications Al Hydroxide/Mg Hydroxide (Milk Of Magnangie Liq) 30 ml PO Q12H PRN PRN Reason: Mild Constipation Albuterol (Duoneb Neb (Michelle)) 1 ampul NEB Q6HR NEB [facility] Last Admin: 07/14/18 09:21 Dose: 1 ampul Albuterol (Albuterol Neb (Prn)) 2.5 mg NEB Q2HR NEB PRN PRN Reason: SHORTNESS OF BREATH Bisacodyl (Dulcolax Supp) 10 mg RECTAL DAILY PRN PRN Reason: SEVERE CONSITIPATION Clindamycin HCl (Cleocin) 300 mg PO Q6HR [facility] Last Admin: 07/14/18 05:03 Dose: 300 mg Diphenhydramine HCl (Benadryl) 50 mg PO Q6H PRN PRN Reason: ITCHING Last Admin: 07/14/18 09:19 Dose: 50 mg Enoxaparin Sodium (Lovenox Inj) 40 mg SQ Q24H [facility] Last Admin: 07/13/18 13:47 Dose: 40 mg Fluconazole (Diflucan) 100 mg PO DAILY [facility] Last Admin: 07/14/18 09:19 Dose: 100 mg Sodium Chloride (Ns Inj) 1,000 mls @ 70 mls/hr IV.CONT .[id number] [facility] Last Admin: 07/14/18 00:31 Dose: 70 mls/hr Ibuprofen (Motrin) 400 mg PO Q6H PRN PRN Reason: PAIN SCALE 1 TO 2 Last Admin: 07/13/18 16:00 Dose: 400 mg Levofloxacin (Levaquin) 750 mg PO DAILY [facility] Last Admin: 07/14/18 09:19 Dose: 750 mg Naloxone HCl (Narcan Inj) 0.4 mg IV.PUSH UNSCH PRN PRN Reason: SEE LABEL COMMENTS Ondansetron HCl (Zofran Odt) 4 mg PO Q6H PRN PRN Reason: NAUSEA Last Admin: 07/14/18 00:13 Dose: 4 mg Oxycodone/Acetaminophen (Percocet 10/325 Mg) 1 tab PO Q6H PRN PRN Reason: PAIN SCALE 6 TO 10 Last Admin: 07/14/18 05:04 Dose: 1 tab Oxycodone/Acetaminophen (Percocet 5/325 Mg) 1 tab PO Q6H PRN PRN Reason: PAIN SCALE 3 TO 5 Senna/Docusate Sodium (Misa-Colace) 1 tab PO BID [facility] Last Admin: 07/14/18 09:19 Dose: 1 tab Sennosides (Senokot) 17.2 mg PO Q12H PRN PRN Reason: Moderate Constipation Allergies Allergy/AdvReac Type Severity Reaction Status Date / Time haloperidol Allergy Severe Swelling Verified 07/13/18 11:54 Home Medications Medication Instructions Recorded Confirmed Type sulfamethoxazole-trimethoprim 1 tab PO DAILY 07/13/18 07/13/18 History [Bactrim DS] Exam Vital signs: Vital Signs 07/13/18 10:42 07/13/18 12:00 07/13/18 16:00 Temperature 101.2 F H 98.5 F Pulse Rate 114 H 120 H 103 H Respiratory Rate 18 16 16 Blood Pressure 142/77 H 142/75 H 119/72 Pulse Oximetry 93 L 93 L 07/13/18 19:11 07/13/18 19:38 07/14/18 00:00 Temperature 99.2 F 98.3 F Pulse Rate 92 H 87 Respiratory Rate 18 16 Blood Pressure 99/56 L 102/59 L Pulse Oximetry 94 L 96 95 07/14/18 03:12 07/14/18 03:25 07/14/18 04:08 Temperature 98.2 F Pulse Rate 85 88 84 Respiratory Rate 16 18 Blood Pressure 98/54 L Pulse Oximetry 93 L 07/14/18 08:00 07/14/18 09:23 Temperature 98.1 F Pulse Rate 87 87 Respiratory Rate 16 18 Blood Pressure 115/69 Pulse Oximetry 91 L Intake & Output 07/13/18 07/14/18 07/14/18 18:59 06:59 18:59 Intake Total 2350 / 2350 2600 / 2600 Output Total 775 / 775 Balance 2350 / 2350 1825 / 1825 Weight 102.058 kg Intake: IV 2350 / 2350 1000 / 1000 NS Inj 1,000 ML @ 70 mls/hr IV. 1000 / 1000 1000 / 1000 CONT .[id number] [facility] Rx#:[id number] Zosyn 4.5 GM Premix 4.5 gm In 100 / 100 100 ml @ 200 mls/hr IV.SIG STAT STA Rx#:[id number] NS Inj 1,000 ML @ Wide Open IV. 1000 / 1000 SIG BOLUS ONE Rx#:[id number] Vancomycin Inj 1,000 MG In NS 250 / 250 Inj 250 ML @ 250 mls/hr IV.SIG STAT STA Rx#:[id number] Oral 1600 / 1600 Output: Urine 775 / 775 Other: Date of Last Bowel Movement 07/13/18 # Bowel Movements 1 - Constitutional no acute distress, average body habitus, cooperative - Routine HEENT Exam Head: Present: normocephalic, atraumatic. Absent: cushingoid faces, facial swelling Eye: Present: EOMI, PERRL. Absent: conjunctival icterus, scleral injection, periorbital swelling ENT: Present: mucous membranes moist, external ear normal - Routine Neck Exam Present: supple, full ROM, trachea midline. Absent: swelling - Routine Respiratory Exam Present: CTA bilaterally. Absent: accessory muscle use, patient mechanically ventilated, decreased breath sounds, prolonged expiratory phase, rales, respiratory distress, rhonchi - Routine Cardiovascular Exam Present: RRR. Absent: murmur, gallop, rubs - Routine Abdominal Exam Present: soft, normoactive bowel sounds. Absent: tenderness, distended, rebound - Routine Extremities Exam Present: full ROM. Absent: cyanosis, clubbing, edema - Routine Neurological Exam Present: alert, oriented X3 Results - Labs Result diagrams: 07/14/18 08:00 07/14/18 08:00 Abnormal lab results 07/13/18 07/13/18 07/14/18 Range/Units 10:35 10:35 08:00 WBC 3.0 L (4.0-11.0) th/mm3 RBC 3.43 L (4.50-5.90) mil/mm3 Hgb 11.1 L D (13.0-17.0) gm/dL Hct 31.4 L (39.0-51.0) % Plt Count 77 L (150-450) th/mm3 Band Neuts % (Manual) 13 H (0-6) % Monocytes % (Manual) 10 H (0-8) % Eosinophils % (Manual) 6 H (0-4) % Platelet Estimate Low L (Normal) Ovalocytes 1+ H (None) Potassium (3.5-5.1) meq/L Calcium (8.5-10.1) mg/dL AST (15-37) U/L Alkaline Phosphatase (45-117) U/L Albumin (3.4-5.0) g/dL Urine Protein 100 H (Neg-Trace) mg/dL Urine Occult Blood Moderate H (Negative) Urine Urobilinogen 2.0 H (Less than 2) mg/dL Urine RBC 50 H (0-3) /hpf Urine Bacteria Occasional H (None) /hpf Urine Mucus Few H (Occasional) /lpf U Cannabinoids Screen Pos H (Neg) 07/14/18 Range/Units 08:00 WBC (4.0-11.0) th/mm3 RBC (4.50-5.90) mil/mm3 Hgb (13.0-17.0) gm/dL Hct (39.0-51.0) % Plt Count (150-450) th/mm3 Band Neuts % (Manual) (0-6) % Monocytes % (Manual) (0-8) % Eosinophils % (Manual) (0-4) % Platelet Estimate (Normal) Ovalocytes (None) Potassium 3.3 L D (3.5-5.1) meq/L Calcium 7.5 L D (8.5-10.1) mg/dL AST 59 H (15-37) U/L Alkaline Phosphatase 44 L (45-117) U/L Albumin 2.6 L D (3.4-5.0) g/dL Urine Protein (Neg-Trace) mg/dL Urine Occult Blood (Negative) Urine Urobilinogen (Less than 2) mg/dL Urine RBC (0-3) /hpf Urine Bacteria (None) /hpf Urine Mucus (Occasional) /lpf U Cannabinoids Screen (Neg) Short CBC 07/14/18 Range/Units 08:00 WBC 3.0 L (4.0-11.0) th/mm3 Hgb 11.1 L D (13.0-17.0) gm/dL Hct 31.4 L (39.0-51.0) % Plt Count 77 L (150-450) th/mm3 BMP 07/14/18 08:00 Sodium 140 Potassium 3.3 L D Chloride 107 Carbon Dioxide 23.8 BUN 16 Creatinine 0.82 Calcium 7.5 L D Liver Function 07/14/18 Range/Units 08:00 Total Bilirubin 0.4 (0.2-1.0) mg/dL AST 59 H (15-37) U/L ALT 36 (12-78) U/L Alkaline Phosphatase 44 L (45-117) U/L Albumin 2.6 L D (3.4-5.0) g/dL Urine 07/13/18 Range/Units 10:35 Urine Color Yellow (Yellw/Straw) Urine Clarity Clear (Clear) Urine pH 6.0 (5.0-8.5) Ur Specific [place] 1.030 (1.002-1.035) Urine Protein 100 H (Neg-Trace) mg/dL Urine Glucose (UA) Negative (Negative) mg/dL - Imaging Impressions Venous Doppler Study 07/13/18 00:00 CONCLUSION: No venous thrombosis is identified in the right lower extremity. Tibia/Fibula X-Ray 07/13/18 10:01 CONCLUSION: Anterior soft tissue swelling Caprini VTE Risk Assessment Caprini VTE Risk Assessment: Moderate/High Risk (score >= 2) Caprini Risk Assessment Model: Point Value = 1 Point Value = 2 Point Value = 3 Point Value = 5 Age 41-60 Minor surgery BMI > 25 kg/m2 Swollen legs Varicose veins or History of unexplained or recurrent spontaneous Oral contraceptives or hormone replacement Sepsis (< 1 month) Serious lung disease, including pneumonia (< 1 month) Abnormal pulmonary function Acute myocardial infarction Congestive heart failure (< 1 month) History of inflammatory bowel disease Medical patient at bed rest Age 61-74 Arthroscopic surgery Major open surgery (> 45 min) Laparoscopic surgery (> 45 min) Malignancy Confined to bed (> 72 hours) Immobilizing plaster cast Central venous access Age >= 75 History of VTE Family history of VTE Factor V Leiden Prothrombin [id number] Lupus anticoagulant Anticardiolipin antibodies Elevated serum homocysteine Heparin-induced thrombocytopenia Other congenital or acquired thrombophilia Stroke (< 1 month) Elective arthroplasty Hip, pelvis, or leg fracture Acute spinal cord injury (< 1 month) Prophylaxis Regimen: Total Risk Factor Score Risk Level Prophylaxis Regimen 0-1 Low Early ambulation 2 Moderate Order ONE of the following: *Sequential Compression Device (SCD) *Heparin 5000 units SQ BID 3-4 Higher Order ONE of the following medications: *Heparin 5000 units SQ TID *Enoxaparin/Lovenox 40 mg SQ daily (WT < 150 kg, CrCl > 30 mL/min) *Enoxaparin/Lovenox 30 mg SQ daily (WT < 150 kg, CrCl > 10-29 mL/min) *Enoxaparin/Lovenox 30 mg SQ BID (WT < 150 kg, CrCl > 30 mL/min) AND/OR *Sequential Compression Device (SCD) 5 or more Highest Order ONE of the following medications: *Heparin 5000 units SQ TID (Preferred with Epidurals) *Enoxaparin/Lovenox 40 mg SQ daily (WT < 150 kg, CrCl > 30 mL/min) *Enoxaparin/Lovenox 30 mg SQ daily (WT < 150 kg, CrCl > 10-29 mL/min) *Enoxaparin/Lovenox 30 mg SQ BID (WT < 150 kg, CrCl > 30 mL/min) AND *Sequential Compression Device (SCD) Assessment and Plan - Assessment (1) Cellulitis Code(s): L03.90 - Cellulitis, unspecified Status: Acute Plan: 3 day history of sore on thigh and 2 sores on calf with surrounding erythema and fever. History of cellulitis 2 months ago MRSA positive that resolved. -Vancomycin and Zosyn given in ED -Blood cultures pending -ID consult given AIDS history and cellulitis. appreciate their recs. On all po meds now. consider D/C home tomorrow as he is stable -X ray lower R leg for osteomyelitis; consider ESR -US Doppler to rule out DVT and assess abscess -Normal saline fluids 70 mL/h -Pain scale with Motrin and Percocet (2) HIV (human immunodeficiency virus infection) Code(s): B20 - Human immunodeficiency virus [HIV] disease Status: Acute Plan: Admission in April CD4 was 29. Has not received any antiviral therapy in 5 years. At home on prophylaxis azithromycin 2 pills every Sunday and Bactrim daily. -ID consult on antibiotics and prophylactic therapy -Given not on antiviral therapy and recent workup in April wait for ID recommendations on further workup he knows he will not survive for years without any HIV meds and wants to speak to hospice (3) COPD (chronic obstructive pulmonary disease) Code(s): J44.9 - Chronic obstructive pulmonary disease, unspecified Status: Acute Plan: Shortness of breath at rest. Been prescribed home medication but currently not on any. -Alternate albuterol and DuoNebs (4) Nausea Code(s): R11.0 - Nausea Status: Acute Plan: Zofran as needed nausea (5) Nutrition, metabolism, and development symptoms Code(s): R63.8 - Other symptoms and signs concerning food and fluid intake Status: Acute Plan: Diet: Regular Prophylaxis: Lovenox Electrolytes: Replete as needed (6) Skin rash Code(s): R21 - Rash and other nonspecific skin eruption Status: Acute Plan: He reports having rashes different parts of his body for months. He has an erythematous maculopapular rash on his back not as much on his legs some on his chest some on his arms. He is an AIDS patient and they often have a lot of rashes I am not sure if his rash could be related to Bactrim it he does not seem to be suffering acutely from a severe allergic reaction. His nurses were concerned about possible scabies because of his itching rash he does not have any anything in between his fingers or toes he does not have excessive itchiness of his axilla or groin or hair or any place else. His rash appears to be probably more related to his age as opposed to scabies however since he will be spending the night here to be on the safe side as age can make rashes look different he will be given some cream to treat him for scabies. - Assessment and Plan 48-year-old male past medical history of HIV, hep C, bipolar, COPD who presented with right leg pain and sores. Clinical picture consistent with cellulitis. X-rays of right leg to assess for osteomyelitis. Right leg ultrasound Doppler to rule out DVT and assess for abscess. Started on Vanco and Zosyn. History of MRSA cellulitis and bacteremia with gram-positive negative rods back in April. CD4 count at that time 29 and currently not receiving active HIV antiviral therapy. ID consulted. Blood cultures pending. Follow-up on urine drug screen. Disposition:unknown Discharge: home H&P: Quality - VTE Deep Vein Thrombosis/Pulmonary Embolism Present on Admission: No (1) Cellulitis Qualifiers: Site of cellulitis: extremity Site of cellulitis of extremity: lower extremity Laterality: right Qualified Code(s): L03.115 - Cellulitis of right lower limb
[2018-07-14] MEDS: Enoxaparin Inj 40 MG/0.4 ML Syringe SQ SCH (12:50)
--- NOTE | 2018-07-14 13:41 | ECG ---
Date Performed: 07/13/2018 Time Performed: 09:00:37 PTAGE: 48 years EKG: Sinus rhythm INDETERMINATE AXIS INCOMPLETE RIGHT BUNDLE BRANCH BLOCK BORDERLINE ECG PREVIOUS TRACING : 05/02/2018 06.07 Compared to previous tracing, sinus rate is slower. DOCTOR: Amadou Sanchez Interpretating Date/Time 07/14/2018 13:39:47
[2018-07-14] MEDS: Ibuprofen 400 MG Tablet PO PRN (17:57)
[2018-07-15] MEDS: Fluconazole 100 MG Tablet PO SCH (09:34)
[2018-07-15] MEDS: Senna/Docusate Sodium 8.6/50 MG Tablet PO SCH ×2 (09:34→20:15)
[2018-07-15] MEDS: levoFLOXacin 750 MG Tablet PO SCH (09:34)
[2018-07-15] MEDS: oxyCODONE/Acetaminophen 10/325 Tablet PO PRN ×4 (09:37→23:00)
[2018-07-15 09:50] LABS: Baso % (Auto) 0.5 % (0.0-2.0); Eos # (Auto) 0.3 th/mm3 (0.0-0.4); Eos % (Auto) 7.7 % (0.0-4.0); Hematocrit 32.6 % (39.0-51.0); Hemoglobin 11.3 gm/dL (13.0-17.0); Lymph # (Auto) 0.6 th/mm3 (1.0-4.8); Lymph % (Auto) 19.1 % (9.0-44.0); Mean Corpuscular HGB Conc 34.7 % (32.0-36.0); Mean Corpuscular Hemoglobin 31.8 pg (27.0-34.0); Mean Corpuscular Volume 91.6 fL (80.0-100.0); Mean Platelet Volume 8.9 fL (7.0-11.0); Mono # (Auto) 0.4 th/mm3 (0.0-0.9); Mono % (Auto) 10.5 % (0.0-8.0); Neut # (Auto) 2.1 th/mm3 (1.8-7.7); Neut % (Auto) 62.2 % (16.0-70.0); Platelet Count 77 th/mm3 (150-450); Red Blood Count 3.55 mil/mm3 (4.50-5.90); White Blood Count 3.4 th/mm3 (4.0-11.0)
[2018-07-15 10:00] LABS: Anion Gap 6 meq/L (5-15); Blood Urea Nitrogen 13 mg/dL (7-18); Calcium 8.1 mg/dL (8.5-10.1); Carbon Dioxide 28.1 meq/L (21.0-32.0); Chloride 107 meq/L (98-107); Glomerular Filtration Rate Greater Than 89 mL/min (>89); Glucose,Random 89 mg/dL (74-106); Potassium 3.7 meq/L (3.5-5.1); Sodium 141 meq/L (136-145)
[2018-07-15 10:18] LABS: Ovalocytes 1+
[2018-07-15 10:19] LABS: Platelet Morphology Normal (Normal)
[2018-07-15] MEDS: Enoxaparin Inj 40 MG/0.4 ML Syringe SQ SCH (12:32)
--- NOTE | 2018-07-15 13:03 | P.PNID ---
Subjective Remarks: Patient is a 48-year-old male, presented to the hospital complaining of sores in the right leg 1 week. Patient states he gets this worse in both legs and he also gets them in his upper extremity and he does not know how he gets them. He was seen in the ED on July 08, and he was given doxycycline for the abscess in his right thigh, but patient apparently did not take his antibiotic because he was already on antibiotic for his HIV. He was in the hospital in April and he had multiple skin abscesses in his right lower extremity that cultured out MRSA. He got better. When he started getting the source and right leg, he started noticing redness, and started experiencing some pain. He felt feverish. He does not remember getting any insect bites. He also has had some itching that is generalized. He seemed to have some kind of a rash and is not a very good historian but he thinks they have been present for a couple weeks. He denies any respiratory complaint, and he has had no GI or any urinary complaints. He has had problem with on and off headache. Patient has known bipolar disorder, and he stopped taking his lithium about 6 months ago. He stated that he has trouble getting his blood work done regularly for the lithium levels. Patient also has known HIV since early 1999, but he has not been on any HIV medication in the last 5-6 years, and has not really followed up with any HIV provider. His last CD4 count from April was 29. Patient lives at home with his sister and the 2 kids of the sister. She had 2 dogs at home. Infectious disease consultation has been requested to evaluate the patient with HIV and cellulitis of the right leg. Notes reviewed NO new complaints Itching is better Antibiotics: Levaquin Clinda Past Medical History: Anxiety Bipolar 1 disorder Depression Neuropathy PTSD (post-traumatic stress disorder) Pneumocystosis pneumonia Suicidal ideations COPD (chronic obstructive pulmonary disease) HIV disease Hepatitis C History of MRSA infection Allergies/Adverse Reactions: Allergies haloperidol Allergy (Severe, Verified 07/13/18 11:54) Swelling TONGUE SWELLING - Per pt. Objective Vital Signs 07/14/18 16:00 07/14/18 20:00 07/14/18 20:04 Temperature 99.7 F H 99.1 F Pulse Rate 87 88 97 H Respiratory Rate 16 18 Blood Pressure 119/74 114/67 Pulse Oximetry 93 L 94 L 07/15/18 00:00 07/15/18 07:59 07/15/18 08:00 Temperature 97.8 F 98.8 F Pulse Rate 60 70 Respiratory Rate 20 16 Blood Pressure 143/60 H 104/56 L Pulse Oximetry 95 94 L 95 07/15/18 12:00 Temperature 98.8 F Pulse Rate 72 Respiratory Rate 16 Blood Pressure 120/83 Pulse Oximetry 95 Intake & Output 07/14/18 07/15/18 07/15/18 18:59 06:59 18:59 Intake Total 2920 / 2920 Output Total 500 / 500 Balance 2420 / 2420 Intake: IV 1000 / 1000 NS Inj 1,000 ML @ 70 mls/hr IV. 1000 / 1000 CONT .[id number] [facility] Rx#:[id number] Oral 1920 / 1920 Output: Urine 500 / 500 Other: Date of Last Bowel Movement 07/14/18 07/14/18 # Bowel Movements 1 07/13/18 08:20 Blood - Peripheral Aerobic Blood Culture - Preliminary No growth in 2 days 07/13/18 08:20 Blood - Peripheral Anaerobic Blood Culture - Preliminary No growth in 2 days 07/13/18 08:30 Blood - Peripheral Aerobic Blood Culture - Preliminary No growth in 2 days 07/13/18 08:30 Blood - Peripheral Anaerobic Blood Culture - Preliminary No growth in 2 days Lab - Hematology Results 07/14/18 07/15/18 08:00 09:23 WBC 3.0 L 3.4 L RBC 3.43 L 3.55 L Hgb 11.1 L D 11.3 L Hct 31.4 L 32.6 L MCV 91.6 91.6 MCH 32.2 31.8 MCHC 35.2 34.7 RDW 14.3 14.0 Plt Count 77 L 77 L MPV 8.8 8.9 Prelim Diff (Auto) Manual diff required Slide review pending Neut % (Auto) 62.2 Lymph % (Auto) 19.1 Fannin % (Auto) 10.5 H Eos % (Auto) 7.7 H Baso % (Auto) 0.5 Neut # (Auto) 2.1 Lymph # (Auto) 0.6 L Fannin # (Auto) 0.4 Eos # (Auto) 0.3 Baso # (Auto) 0.0 WBC Differential Manual diff final . Diff Scan Auto diff confirmed Seg Neuts % (Manual) 62 Band Neuts % (Manual) 13 H Lymphocytes % (Manual) 9 Monocytes % (Manual) 10 H Eosinophils % (Manual) 6 H Abs Neuts (Manual) 2.3 Differential Comment . . Platelet Estimate Low L Low L Platelet Morphology Normal Normal Ovalocytes 1+ H 1+ H Lab - Chemistry Results 07/14/18 07/15/18 08:00 09:23 Sodium 140 141 Potassium 3.3 L D 3.7 Chloride 107 107 Carbon Dioxide 23.8 28.1 Anion Gap 9 6 BUN 16 13 Creatinine 0.82 0.79 Estimated GFR Greater than 89 Greater than 89 Random Glucose 94 89 Calcium 7.5 L D 8.1 L Total Bilirubin 0.4 AST 59 H ALT 36 Alkaline Phosphatase 44 L Total Protein 6.8 D Albumin 2.6 L D Imaging: ITS Impressions Venous Doppler Study 07/13/18 00:00 CONCLUSION: No venous thrombosis is identified in the right lower extremity. Chest X-Ray 07/13/18 08:15 CONCLUSION: No acute cardiopulmonary disease Tibia/Fibula X-Ray 07/13/18 10:01 CONCLUSION: Anterior soft tissue swelling Physical Exam: GENERAL: awake and alert, not in respiratory distress. He has flushed face SKIN: Warm and dry. Has red maculopapular rash very prominent in his RUE, and some seen in LUE and BLE, and lateral trunk. Rash looks better HEAD: Atraumatic. Normocephalic. No temporal wasting, or tenderness. EYES: Howard conjunctiva. Has bilateral conjunctival injection. No scleral icterus. EARS, NOSE AND THROAT: Nose without bleeding or purulent nasal discharge. No sinus tenderness. Mucous membranes pink and moist. Has oral thrush NECK: Trachea midline. Supple and not tender, no meningeal signs CARDIOVASCULAR: Regular rate and rhythm. No murmurs, rubs or gallops heard RESPIRATORY: Clear to auscultation. Breath sounds equal bilaterally. No rales , wheezing or rhonchi ABDOMEN: Soft, non-tender, nondistended. He has umbilical hernia with dry round wound at top of hernia about 1 cm size. Bowel sounds present and normoactive. No guarding. No rebound. No organomegaly. EXTREMITIES: No clubbing, cyanosis. RLE is slightly larger than LLE, with improving erythema over distal thigh and upper 2/3 of leg. He has scattered dry wounds with eschar with BUE and BLE. No joint effusion, has good ROM. No calf tenderness. NEUROLOGICAL: Non-focal. PSYCHIATRIC: cooperative and calm today LINE: No evidence of infection Assessment and Plan - Plan Impression Cellulitis RLE Multiple dry wounds in extremities, previous had abscess in his RLE April 2018, ?insect bites Skin rash, etiology, has flushed face, korin conjunctival injection, ?drug eruption - no new meds - ?sun hypersensitivity (ON bactrim chronically) HIV, AIDS - not compliant Bipolar disorder - not taking meds Recommendation Levaquin and Clinda po for cellulitis' - complete Rx with oral Abx - end dates ordered in [facility] Can be D/C from ID standpoint Resume his HIV meds - Bactrim and Zithromax Needs to followup with HIV provider - he as been instructed in the past but has not followed up
--- NOTE | 2018-07-15 15:14 | P.PNFP ---
Subjective Interval history: No acute events overnight. Patient states that the leg pain is improving with antibiotics if he continues to have pain when walking. Denies any fever or chills overnight, chest pain, shortness of breath, nausea vomiting, diarrhea. <Antwan Muse - 07/15/18 15:57> Results - Labs Result diagrams: 07/15/18 09:23 07/15/18 09:23 <Laurence Lino - 07/17/18 16:55> Abnormal lab results 07/15/18 07/15/18 Range/Units 09:23 09:23 WBC 3.4 L (4.0-11.0) th/mm3 RBC 3.55 L (4.50-5.90) mil/mm3 Hgb 11.3 L (13.0-17.0) gm/dL Hct 32.6 L (39.0-51.0) % Plt Count 77 L (150-450) th/mm3 [place] % (Auto) 10.5 H (0.0-8.0) % Eos % (Auto) 7.7 H (0.0-4.0) % Lymph # (Auto) 0.6 L (1.0-4.8) th/mm3 Platelet Estimate Low L (Normal) Ovalocytes 1+ H (None) Calcium 8.1 L (8.5-10.1) mg/dL Short CBC 07/15/18 Range/Units 09:23 WBC 3.4 L (4.0-11.0) th/mm3 Hgb 11.3 L (13.0-17.0) gm/dL Hct 32.6 L (39.0-51.0) % Plt Count 77 L (150-450) th/mm3 [facility] 07/15/18 09:23 Sodium 141 Potassium 3.7 Chloride 107 Carbon Dioxide 28.1 BUN 13 Creatinine 0.79 Calcium 8.1 L <Antwan Muse - 07/15/18 15:14> Physical Exam Vital signs: Vital Signs 07/15/18 15:54 07/15/18 20:00 07/16/18 00:00 Temperature 98.1 F 98.9 F 99.0 F Pulse Rate 69 78 84 Respiratory Rate 16 20 20 Blood Pressure 115/67 132/68 128/68 Pulse Oximetry 95 98 07/16/18 04:00 07/16/18 08:00 Temperature 98.7 F 98.2 F Pulse Rate 70 Respiratory Rate 22 18 Blood Pressure 122/64 115/70 Pulse Oximetry 96 92 L Intake & Output 07/15/18 07/16/18 07/16/18 18:59 06:59 18:59 Output Total 500 / 500 Balance -500 / -500 Output: Urine 500 / 500 Other: Date of Last Bowel Movement 07/14/18 <Laurence Lino M - 07/17/18 16:55> Vital Signs 07/14/18 16:00 07/14/18 20:00 07/14/18 20:04 Temperature 99.7 F H 99.1 F Pulse Rate 87 88 97 H Respiratory Rate 16 18 Blood Pressure 119/74 114/67 Pulse Oximetry 93 L 94 L 07/15/18 00:00 07/15/18 07:59 07/15/18 08:00 Temperature 97.8 F 98.8 F Pulse Rate 60 70 Respiratory Rate 20 16 Blood Pressure 143/60 H 104/56 L Pulse Oximetry 95 94 L 95 07/15/18 12:00 Temperature 98.8 F Pulse Rate 72 Respiratory Rate 16 Blood Pressure 120/83 Pulse Oximetry 95 Intake & Output 07/14/18 07/15/18 07/15/18 18:59 06:59 18:59 Intake Total 2920 / 2920 Output Total 500 / 500 Balance 2420 / 2420 Intake: IV 1000 / 1000 NS Inj 1,000 ML @ 70 mls/hr IV. 1000 / 1000 CONT .[id number] [facility] Rx#:[id number] Oral 1919 Output: Urine 500 / 500 Other: Date of Last Bowel Movement 07/14/18 07/14/18 # Bowel Movements 1 <Antwan Muse Richardson - 07/15/18 15:14> Narrative: GENERAL: Well-developed, well-nourished male lying in bed in no acute distress. SKIN: Warm and dry. Has red maculopapular rash very prominent in his RUE, and some seen in LUE and BLE, and lateral trunk. Rash looks better HEAD: Atraumatic. Normocephalic. No temporal wasting, or tenderness. EYES: [place] conjunctiva. Has bilateral conjunctival injection. No scleral icterus. EARS, NOSE AND THROAT: Nose without bleeding or purulent nasal discharge. No sinus tenderness. Mucous membranes pink and moist. Has oral thrush NECK: Trachea midline. Supple and not tender, no meningeal signs CARDIOVASCULAR: Regular rate and rhythm. No murmurs, rubs or gallops heard RESPIRATORY: Clear to auscultation. Breath sounds equal bilaterally. No rales , wheezing or rhonchi ABDOMEN: Soft, non-tender, nondistended. He has umbilical hernia with dry round wound at top of hernia about 1 cm size. Bowel sounds present and normoactive. No guarding. No rebound. No organomegaly. EXTREMITIES: No clubbing, cyanosis. RLE is slightly larger than LLE, with improving erythema over distal thigh and upper 2/3 of leg. He has scattered dry wounds with eschar with BUE and BLE. No joint effusion, has good ROM. No calf tenderness. NEUROLOGICAL: Non-focal. PSYCHIATRIC: cooperative and calm today LINE: No evidence of infection <Antwan Muse - 07/15/18 15:57> Assessment and Plan - Assessment (1) Cellulitis Code(s): L03.90 - Cellulitis, unspecified Status: Acute (2) HIV (human immunodeficiency virus infection) Code(s): B20 - Human immunodeficiency virus [HIV] disease Status: Acute (3) COPD (chronic obstructive pulmonary disease) Code(s): J44.9 - Chronic obstructive pulmonary disease, unspecified Status: Acute (4) Skin rash Code(s): R21 - Rash and other nonspecific skin eruption Status: Acute <Laurence Lino - 07/17/18 16:55> (1) Cellulitis Code(s): L03.90 - Cellulitis, unspecified Status: Acute Plan: 3 day history of sore on thigh and 2 sores on calf with surrounding erythema and fever. History of cellulitis 2 months ago MRSA positive that resolved. -Vancomycin and Zosyn given in ED -Blood cultures pending -ID consult given AIDS history and cellulitis. appreciate their recs. On all po meds now. consider D/C home today after evaluation from hospice. -X ray lower R leg for osteomyelitis was negative -Normal saline fluids 70 mL/h -Pain scale with Motrin and Percocet (2) HIV (human immunodeficiency virus infection) Code(s): B20 - Human immunodeficiency virus [HIV] disease Status: Acute Plan: Admission in April CD4 was 29. Has not received any antiviral therapy in 5 years. At home on prophylaxis azithromycin 2 pills every Sunday and Bactrim daily. -ID consult on antibiotics and prophylactic therapy -Given not on antiviral therapy and recent workup in April wait for ID recommendations on further workup he knows he will not survive for years without any HIV meds and wants to speak to hospice Hospice consulted (3) COPD (chronic obstructive pulmonary disease) Code(s): J44.9 - Chronic obstructive pulmonary disease, unspecified Status: Acute Plan: Shortness of breath at rest. Been prescribed home medication but currently not on any. -Alternate albuterol and DuoNebs (4) Nausea Code(s): R11.0 - Nausea Status: Acute Plan: Zofran as needed nausea (5) Skin rash Code(s): R21 - Rash and other nonspecific skin eruption Status: Acute Plan: He reports having rashes different parts of his body for months. He has an erythematous maculopapular rash on his back not as much on his legs some on his chest some on his arms. He is an AIDS patient and they often have a lot of rashes I am not sure if his rash could be related to Bactrim it he does not seem to be suffering acutely from a severe allergic reaction. His nurses were concerned about possible scabies because of his itching rash he does not have any anything in between his fingers or toes he does not have excessive itchiness of his axilla or groin or hair or any place else. His rash appears to be probably more related to his age as opposed to scabies however since he will be spending the night here to be on the safe side as age can make rashes look different he will be given some cream to treat him for scabies. (6) Nutrition, metabolism, and development symptoms Code(s): R63.8 - Other symptoms and signs concerning food and fluid intake Status: Acute Plan: Diet: Regular Prophylaxis: Lovenox Electrolytes: Replete as needed <Antwan Muse - 07/15/18 15:52> - Assessment and Plan 48-year-old male past medical history of HIV, hep C, bipolar, COPD who presented with right leg pain and sores. Clinical picture consistent with cellulitis. X-rays of right leg to assess for osteomyelitis. Right leg ultrasound Doppler to rule out DVT and assess for abscess. Started on Vanco and Zosyn. History of MRSA cellulitis and bacteremia with gram-positive negative rods back in April. CD4 count at that time 29 and currently not receiving active HIV antiviral therapy. ID consulted and gave recommendations for p.o. antibiotics including Levaquin and clindamycin. Blood cultures no growth to date. Hospice consulted Disposition: Likely DC today Discharge: home (possibly with hospice pending their evaluation) <Antwan Muse - 07/15/18 15:57> - Attending Attestation The exam, history, and the medical decision-making described in the above note were completed with the assistance of the resident physician. I reviewed and agree with the findings presented. I attest that I had a [id number] encounter with the patient on the same day, and personally performed and documented my assessment and findings in the medical record. His leg looks much better overall. We discussed that without his HIV medicines he would continue to have different illnesses and that is why he wishes to have hospice. He also is "tired" of taking the HIV medicines and he knows that that will result in in the not too long future. People who do not take her HIV medicines have a much shortened life expectancy. He already lost 40 or 50 pounds over the past 6 months. <Laurence Lino - 07/16/18 13:27> <Antwan Muse - Last Filed: 07/15/18 15:52> (1) Cellulitis Qualifiers: Site of cellulitis: extremity Site of cellulitis of extremity: lower extremity Laterality: right Qualified Code(s): L03.115 - Cellulitis of right lower limb <Laurence Lino - Last Filed: 07/17/18 16:55> (1) Cellulitis Qualifiers: Site of cellulitis: extremity Site of cellulitis of extremity: lower extremity Laterality: right Qualified Code(s): L03.115 - Cellulitis of right lower limb <Antwan Muse - Last Filed: 07/15/18 15:52> (1) Cellulitis Qualifiers: Site of cellulitis: extremity Site of cellulitis of extremity: lower extremity Laterality: right Qualified Code(s): L03.115 - Cellulitis of right lower limb <Laurence Lino M - Last Filed: 07/17/18 16:55> (1) Cellulitis Qualifiers: Site of cellulitis: extremity Site of cellulitis of extremity: lower extremity Laterality: right Qualified Code(s): L03.115 - Cellulitis of right lower limb
[2018-07-16] MEDS: oxyCODONE/Acetaminophen 10/325 Tablet PO PRN ×2 (04:38→09:31)
[2018-07-16 08:57] VITALS: BP 115/70; PULSE 70; RESP 18; TEMP 98.2; O2SAT 92
[2018-07-16] MEDS: Senna/Docusate Sodium 8.6/50 MG Tablet PO SCH (09:31)
[2018-07-16] MEDS: levoFLOXacin 750 MG Tablet PO SCH (09:31)
[2018-07-16] MEDS: Fluconazole 100 MG Tablet PO SCH (09:31)
--- NOTE | 2018-07-16 10:35 | P.PNFP ---
Subjective Interval history: No acute events overnight. Patient's vital signs are stable. Patient had a discussion with hospice yesterday but decided that that option would "be simply looked at down the road." He states that the redness and swelling of his right leg improved, however 1 of the wounds opened a little and is painful. He states that he has follow-up arranged with his health later this week. <Antwan Muse Richardson - 07/16/18 10:35> Results - Labs Result diagrams: 07/15/18 09:23 07/15/18 09:23 <Laurence Lino - 07/17/18 17:09> Physical Exam Vital signs: Vital Signs 07/15/18 12:00 07/15/18 15:54 07/15/18 20:00 Temperature 98.8 F 98.1 F 98.9 F Pulse Rate 72 69 78 Respiratory Rate 16 16 20 Blood Pressure 120/83 115/67 132/68 Pulse Oximetry 95 95 07/16/18 00:00 07/16/18 04:00 07/16/18 08:00 Temperature 99.0 F 98.7 F 98.2 F Pulse Rate 84 70 Respiratory Rate 20 22 18 Blood Pressure 128/68 122/64 115/70 Pulse Oximetry 98 96 92 L Intake & Output 07/15/18 07/16/18 07/16/18 18:59 06:59 18:59 Output Total 500 / 500 Balance -500 / -500 Output: Urine 500 / 500 Other: Date of Last Bowel Movement 07/14/18 <Antwan Muse Richardson - 07/16/18 10:35> Narrative: GENERAL: Well-developed, well-nourished male lying in bed in no acute distress. SKIN: Warm and dry. Has red maculopapular rash very prominent in his RUE, and some seen in LUE and BLE, and lateral trunk. Rash continues to look better HEAD: Atraumatic. Normocephalic. No temporal wasting, or tenderness. EYES: [place] conjunctiva. Has bilateral conjunctival injection. No scleral icterus. EARS, NOSE AND THROAT: Nose without bleeding or purulent nasal discharge. No sinus tenderness. Mucous membranes pink and moist. Has oral thrush NECK: Trachea midline. Supple and not tender, no meningeal signs CARDIOVASCULAR: Regular rate and rhythm. No murmurs, rubs or gallops heard RESPIRATORY: Clear to auscultation. Breath sounds equal bilaterally. No rales , wheezing or rhonchi ABDOMEN: Soft, non-tender, nondistended. He has umbilical hernia with dry round wound at top of hernia about 1 cm size. Bowel sounds present and normoactive. No guarding. No rebound. No organomegaly. EXTREMITIES: No clubbing, cyanosis. RLE is slightly larger than LLE, with improving erythema over distal thigh and upper 2/3 of leg. He has scattered dry wounds with eschar with BUE and BLE. No joint effusion, has good ROM. No calf tenderness. NEUROLOGICAL: Non-focal. PSYCHIATRIC: cooperative and calm today LINE: No evidence of infection <Antwan Muse - 07/16/18 10:35> Assessment and Plan - Assessment (1) Cellulitis Code(s): L03.90 - Cellulitis, unspecified Status: Acute (2) HIV (human immunodeficiency virus infection) Code(s): B20 - Human immunodeficiency virus [HIV] disease Status: Acute (3) COPD (chronic obstructive pulmonary disease) Code(s): J44.9 - Chronic obstructive pulmonary disease, unspecified Status: Acute (4) Skin rash Code(s): R21 - Rash and other nonspecific skin eruption Status: Acute <Laurence Lino - 07/17/18 17:09> (1) Cellulitis Code(s): L03.90 - Cellulitis, unspecified Status: Acute Plan: 3 day history of sore on thigh and 2 sores on calf with surrounding erythema and fever. History of cellulitis 2 months ago MRSA positive that resolved. -Vancomycin and Zosyn given in ED -Blood cultures with no growth in 2 days -ID consult given AIDS history and cellulitis. appreciate their recs. On all po meds now. Patient spoke with hospice and declined their service. Discharging home on p.o. Levaquin and clindamycin per ID recommendations. -X ray lower R leg for osteomyelitis was negative -Pain scale with Motrin and Percocet, will DC with 30-day prescription (2) HIV (human immunodeficiency virus infection) Code(s): B20 - Human immunodeficiency virus [HIV] disease Status: Acute Plan: Admission in April CD4 was 29. Has not received any antiviral therapy in 5 years. At home on prophylaxis azithromycin 2 pills every Sunday and Bactrim daily. -ID consult on antibiotics and prophylactic therapy -Given not on antiviral therapy and recent workup in April wait for ID recommendations on further workup he knows he will not survive for years without any HIV meds and wants to speak to hospice Hospice consulted but patient does not feel he is not a candidate at this time Has [facility] arranged with [facility] (3) COPD (chronic obstructive pulmonary disease) Code(s): J44.9 - Chronic obstructive pulmonary disease, unspecified Status: Acute Plan: Shortness of breath at rest. Been prescribed home medication but currently not on any. -Alternate albuterol and DuoNebs (4) Skin rash Code(s): R21 - Rash and other nonspecific skin eruption Status: Acute Plan: He reports having rashes different parts of his body for months. He has an erythematous maculopapular rash on his back not as much on his legs some on his chest some on his arms. He is an AIDS patient and they often have a lot of rashes I am not sure if his rash could be related to Bactrim it he does not seem to be suffering acutely from a severe allergic reaction. His nurses were concerned about possible scabies because of his itching rash he does not have any anything in between his fingers or toes he does not have excessive itchiness of his axilla or groin or hair or any place else. His rash appears to be probably more related to his age as opposed to scabies, was treated during this hospitalization but will not require treatment after discharge. (5) Nausea Code(s): R11.0 - Nausea Status: Acute Plan: Zofran as needed nausea (6) Nutrition, metabolism, and development symptoms Code(s): R63.8 - Other symptoms and signs concerning food and fluid intake Status: Acute Plan: Diet: Regular Prophylaxis: Lovenox Electrolytes: Replete as needed <Antwan Muse - 07/16/18 10:25> - Assessment and Plan 48-year-old male past medical history of HIV, hep C, bipolar, COPD who presented with right leg pain and sores. Clinical picture consistent with cellulitis. X-rays of right leg to assess for osteomyelitis. Right leg ultrasound Doppler to rule out DVT and assess for abscess. Started on Vanco and Zosyn. History of MRSA cellulitis and bacteremia with gram-positive negative rods back in April. CD4 count at that time 29 and currently not receiving active HIV antiviral therapy. ID consulted and gave recommendations for p.o. antibiotics including Levaquin and clindamycin. Blood cultures no growth to date. Hospice consulted but patient feels he is not needing their services at this time. Disposition: DC today Discharge: home <Antwan Muse Richardson - 07/16/18 10:35> - Attending Attestation The exam, history, and the medical decision-making described in the above note were completed with the assistance of the resident physician. I reviewed and agree with the findings presented. I attest that I had a [id number] encounter with the patient on the same day, and personally performed and documented my assessment and findings in the medical record. He is definitely ready to go home today and is concerned about minor elevations in temperature. I explained to him that as he had later stage HIV that he could begin to have a lot more problems. So we talked about hospice and he is going to continue to pursue that as an outpatient. <Laurence Lino - 07/17/18 17:09> <Antwan Muse - Last Filed: 07/16/18 10:25> (1) Cellulitis Qualifiers: Site of cellulitis: extremity Site of cellulitis of extremity: lower extremity Laterality: right Qualified Code(s): L03.115 - Cellulitis of right lower limb <Laurence Lino - Last Filed: 07/17/18 17:09> (1) Cellulitis Qualifiers: Site of cellulitis: extremity Site of cellulitis of extremity: lower extremity Laterality: right Qualified Code(s): L03.115 - Cellulitis of right lower limb <Antwan Muse - Last Filed: 07/16/18 10:25> (1) Cellulitis Qualifiers: Site of cellulitis: extremity Site of cellulitis of extremity: lower extremity Laterality: right Qualified Code(s): L03.115 - Cellulitis of right lower limb <Laurence Lino M - Last Filed: 07/17/18 17:09> (1) Cellulitis Qualifiers: Site of cellulitis: extremity Site of cellulitis of extremity: lower extremity Laterality: right Qualified Code(s): L03.115 - Cellulitis of right lower limb
--- NOTE | 2018-07-16 10:53 | P.DS ---
Date of admission: 07/13/18 10:30 Primary care physician: No Primary Care Physician Brief History from admission: 48-year-old male past medical history HIV, COPD, hep C, bipolar presents with right leg pain and sores. He said that the sores started 1 week ago in his thigh to 3 days ago on his calf. Since then they have become more painful, raised, and larger. He was seen in the ED a couple of days ago was given doxycycline, but did not take the medication because he thought it was unnecessary being on Bactrim and azithromycin for his HIV prophylaxis. He said the pain is pulsating, radiating to his thigh and ankle. He says it is worse with pressure and walking. Tylenol provided no relief. He has had fever for the past 2 days and nausea and vomiting this morning. He denies any chest pain or diarrhea. He was admitted to the hospital 2 months ago for a MRSA cellulitis and was treated with vancomycin. At that time he also had headaches and had a lumbar puncture done that was negative. Was bacteremic and cultures grew gram + rods and cocci. His CD4 count at that time was 29 and his urine drug screen was positive for cannabinoids and cocaine. Today he is still having headaches but they are not as severe. He has not received any HIV viral treatment for the past 5-6 years. He lives at home with his sister and is on disability. He smokes weed but denies any other drug use. Was a heroin addict 8 years ago. On discussion with him, he knows that not taking his HIV medicines will kill him in the long run. He states he just wants to be comfortable for the rest of his life. He has lost 40 or 50 lbs in the last 6 months. He has fevers often and is end stage for his HIV/AIDS. Based on his wishes and his decline, he wants to meet with hospice today. He also wants to meet with case management to see about a new place to live. He is on po meds for his cellulitis and is stable physically. DS: Diagnosis - Discharge Diagnosis (1) Cellulitis Status: Acute (2) HIV (human immunodeficiency virus infection) Status: Acute (3) COPD (chronic obstructive pulmonary disease) Status: Acute (4) Skin rash Status: Acute DS: Medications - Discharge Medications Prescriptions: clindamycin HCl [Cleocin HCl] 300 mg PO Q6HR #16 cap levofloxacin 750 mg PO DAILY #7 tab oxycodone-acetaminophen 1 tab PO Q4H PRN #18 tab PRN Reason: Pain Scale 6 To 10 DS: Summary Hospital Course: 48-year-old male past medical history of HIV, hep C, bipolar, COPD who presented with right leg pain and sores. Clinical picture consistent with cellulitis. X-rays of right leg to assess for osteomyelitis: Soft tissue swelling anteriorly. No acute bony abnormality. No periosteal reaction. Right leg ultrasound Doppler: No venous thrombosis is identified in the right lower extremity. Started on Vanco and Zosyn and NS 70 mL/hr . History of MRSA cellulitis and bacteremia with gram-positive negative rods back in April. CD4 count at that time 29 and currently not receiving active HIV antiviral therapy. ID consulted and switched to Levaquin and Clinda po and to resume prophylactic antibiotics at time of discharge. Blood cultures were negative during the hospitalization. Full body rash was treated with permethrin cream was discontinued the day of discharge. Hospice was consulted but patient stated that he would look into their services at a later date. Patient was safe for discharge from 07/16 with follow-up arranged with [facility] [[email or web address]] - Time Spent with Patient Total time spent providing and/or coordinating discharge services: Less than 30 minutes - Quality: VTE Deep Vein Thrombosis/Pulmonary Embolism Present on Admission: No Exam Vital signs: Vital Signs 07/15/18 12:00 07/15/18 15:54 07/15/18 20:00 Temperature 98.8 F 98.1 F 98.9 F Pulse Rate 72 69 78 Respiratory Rate 16 16 20 Blood Pressure 120/83 115/67 132/68 Pulse Oximetry 95 95 07/16/18 00:00 07/16/18 04:00 07/16/18 08:00 Temperature 99.0 F 98.7 F 98.2 F Pulse Rate 84 70 Respiratory Rate 20 22 18 Blood Pressure 128/68 122/64 115/70 Pulse Oximetry 98 96 92 L Intake & Output 07/15/18 07/16/18 07/16/18 18:59 06:59 18:59 Output Total 500 / 500 Balance -500 / -500 Output: Urine 500 / 500 Other: Date of Last Bowel Movement 07/14/18 Narrative: GENERAL: Well-developed, well-nourished male lying in bed in no acute distress. SKIN: Warm and dry. Has red maculopapular rash very prominent in his RUE, and some seen in LUE and BLE, and lateral trunk. Rash continues to look better HEAD: Atraumatic. Normocephalic. No temporal wasting, or tenderness. EYES: [place] conjunctiva. Has bilateral conjunctival injection. No scleral icterus. EARS, NOSE AND THROAT: Nose without bleeding or purulent nasal discharge. No sinus tenderness. Mucous membranes pink and moist. Has oral thrush NECK: Trachea midline. Supple and not tender, no meningeal signs CARDIOVASCULAR: Regular rate and rhythm. No murmurs, rubs or gallops heard RESPIRATORY: Clear to auscultation. Breath sounds equal bilaterally. No rales , wheezing or rhonchi ABDOMEN: Soft, non-tender, nondistended. He has umbilical hernia with dry round wound at top of hernia about 1 cm size. Bowel sounds present and normoactive. No guarding. No rebound. No organomegaly. EXTREMITIES: No clubbing, cyanosis. RLE is slightly larger than LLE, with improving erythema over distal thigh and upper 2/3 of leg. He has scattered dry wounds with eschar with BUE and BLE. No joint effusion, has good ROM. No calf tenderness. NEUROLOGICAL: Non-focal. PSYCHIATRIC: cooperative and calm today LINE: No evidence of infection Results Procedures completed during hospitalization: none Labs on day of discharge: Preliminary micro results at discharge 07/13/18 08:20 Aerobic Blood Culture - Preliminary Blood - Peripheral No growth in 2 days Anaerobic Blood Culture - Preliminary No growth in 2 days 07/13/18 08:30 Aerobic Blood Culture - Preliminary Blood - Peripheral No growth in 2 days Anaerobic Blood Culture - Preliminary No growth in 2 days - Impressions ITS Impressions Venous Doppler Study 07/13/18 00:00 CONCLUSION: No venous thrombosis is identified in the right lower extremity. Chest X-Ray 07/13/18 08:15 CONCLUSION: No acute cardiopulmonary disease Tibia/Fibula X-Ray 07/13/18 10:01 CONCLUSION: Anterior soft tissue swelling Discharge Plan - Discharge Disposition Patient Disposition: 01 Discharge Home - Discharge Condition Condition: Stable - Discharge Order Discharge Orders: Discharge Order (Routine); Ordered 07/16/18 Ordered By: Grace Esparza - Physicians Team Primary Care Provider: Primary Care Marcelino,Parul Attending Provider: Laurence Lino Other Providers: Vidhi Lin MD ; [facility],Insurance
== END 2018-07-16 10:59 | disposition home or self-care (01) ==
LOC: NEPC 08:05 → NEDA 08:05 → NEPHCDU 12:05
PROVIDERS: ADMIT Family Medicine; ATTEND Family Medicine

== ENCOUNTER 2018-08-20 19:14 | Inpatient (IN) ==
[2018-08-20] MEDS ORDERED: Acetaminophen 325 MG Tablet PO ONE (21:03)
[2018-08-20] MEDS ORDERED: Morphine Inj 4 MG/ML Vial IV.PUSH ONE (21:08)
--- NOTE | 2018-08-20 21:14 | ED ---
HPI General Chief Complaint: Headache Stated Complaint: Medical Time Seen by Provider: 08/20/18 20:47 Source: patient Mode of arrival: ambulatory Limitations: no limitations History of Present Illness HPI Narrative: Patient is a 48-year-old male that presents for the evaluation of headache. The patient states that he has been feeling sick for the past three days. Yesterday he states that he developed a sore just lateral to the left eye. He states that today he developed a headache and the sore on the side of his head hurts worse. He rates his current head pain a 10/10 on a pain scale. The patient states that moving his eye and light make the pain worse. He states that he has a history of HIV/AIDS and reports that he has not taken any medications for his AIDS in 7 years. The patient also reports that he has sores on the inside of his lower lip that have been painful for weeks and have made it hard for him to eat. He also reports nausea, vomiting, and diarrhea for the past 4 days and he states that he has not eaten a full meal in 4 days and has a decreased appetite. Upon review of symptoms the patient reports fever and fatigue. He denies chest pain but reports shortness of breath that he states is normal for him due to his COPD. The patient states that the vision in his left eye is blurry and he reports an excess of clear discharge from the left eye. Related Data Home Medications Medication Instructions Recorded Confirmed gabapentin 600 mg PO TID 08/20/18 08/20/18 Allergies Allergy/AdvReac Type Severity Reaction Status Date / Time haloperidol Allergy Severe Swelling Verified 08/20/18 19:50 [facility] Family History Family History Other Diabetes mellitus Social History Social History Substance History: Active Abuse Second Hand Smoke Exposure: Yes Smoking Status: Current every day smoker Tobacco Type: Cigarettes How Often Do You Have a Drink Containing Alcohol: Never Recent Travel in [place] within the Last 8 Weeks: No Recent Out of Country Travel within the Last 8 Weeks: No Substance Abuse Detail Marijuana: Substance Use Status: Active Route Used Substance Abuse: By Mouth Reason for Use: Calm Down Immunization History Tetanus Immunization: >5 Years Hx Influenza Vaccine This Season: No Course Consultations Consultation #1: The patient's case including history, pertinent physical examination findings, and laboratory studies were discussed with Dr. Elizalde. It was agreed that the patient would be admitted to the hospitalist service. Initial Documented Vital Signs Temperature 100.5 F H 08/20/18 19:43 Pulse Rate 108 H 08/20/18 19:43 Respiratory Rate 16 08/20/18 19:43 Blood Pressure 119/80 08/20/18 19:43 Pulse Oximetry 95 10 19:43 Last Documented Vital Signs Temperature 99.5 F 08/21/18 16:00 Pulse Rate 92 H 08/21/18 16:00 Respiratory Rate 16 08/21/18 16:00 Blood Pressure 103/56 L 08/21/18 16:00 Pulse Oximetry 97 08/21/18 16:00 Medical Decision Making NANCY Attestation NANCY supervised visit: Yes Attestation: I, Dr. Esparza, have reviewed the advance practice practitioner's documentation and am in agreement, met with the patient face to face, made the diagnosis, and the medical decision making was done by me. The patient was initially evaluated by Stephen, the NANCY. Please see their complete history and physical. *My assessment and Findings: The patient presents with a history of HIV first diagnosed in 1993 that reports noncompliance with his retroviral medications as he does not want to take them anymore. He reports that he also has PTSD and bipolar disorder, however he does not want to be on any patient reports that his last CD4 count was low. The patient presents with a reported headache, blurry vision, light sensitivity, nausea, vomiting, diarrhea. The patient reports that he has had nausea and vomiting x2 today, diarrhea x3 since yesterday evening. The patient reports a history of IV drug use and hepatitis C. During the course of the patient's emergency department visit, the patient's history, examination, and differential diagnosis were reviewed with the patient. The patient was placed on a telemetry monitor with oximetry and frequent blood pressure monitoring. The patient had IV access obtained and blood work sent for analysis. The patient was initially provided Tylenol for fever. A sepsis workup was initiated including blood cultures and lactic acid. The patient was started on broad-spectrum antibiotic due to a concern for sepsis given his immunocompromise state. The patient's last CD4 count on record was 29. The patient was started on Zosyn and vancomycin. The patient was given normal saline 1 L IV fluid bolus. The patient's studies were reviewed and remarkable for a white count of 3.6, hemoglobin 13.5, platelets 80 in a patient with a history of thrombocytopenia, monocytes 17, PT PTT within normal limits, chemistries remarkable for BUN of 21 , AST is 119, albumin 3.0, lactic acid is 0.9. Urinalysis shows 100 protein, small occult blood, few mucus, culture not indicated. The patient's chest x-ray shows suspected early or mild pneumonia of the left lung base, CT scan of the facial bones shows mild facial cellulitis without perceptible abscess. Acute on chronic paranasal sinusitis, CT scan of the brain shows no acute abnormality. The patient will be admitted to the hospital for IV antibiotic for pneumonia, facial cellulitis, acute on chronic paranasal sinusitis given his immunocompromise state. The patient's results were discussed with the patient, including the plan of care. I explained that further testing and/ or monitoring is indicated based on the patient's history, examination, and/ or laboratory findings. Therefore, I recommended admission for additional evaluation. The patient expressed understanding and was agreeable with this plan. The patient was admitted to the hospital in guarded condition and sent to a bed under the care of [facility] service. MDM Narrative Medical decision making narrative: 48 yo male that presents to the ED for evaluation of possible sepsis and history of AIDS. Patient was properly examined and was found to have signs and symptoms concerning for infection. Labs and imaging were ordered. Patient start IV antibiotics. Patient will be signed out to my attending pending disposition and likely admission. Medical Screen Exam Complete: Yes Emergency Medical Condition: Yes Differential Diagnosis Differential Diagnosis: Sepsis versus immunocompromised patient versus pneumonia versus cellulitis Medical Records Medical records reviewed: Yes I reviewed the patient's medical records. Lab Data Lab results reviewed: Yes I reviewed the patient's lab results. Result diagrams: 08/20/18 21:17 08/20/18 21:17 Lab Results 08/20/18 08/20/18 08/20/18 Range/Units 21:17 21:17 21:17 WBC 3.6 L (4.0-11.0) th/mm3 RBC 4.22 L (4.50-5.90) mil/mm3 Hgb 13.5 (13.0-17.0) gm/dL Hct 37.9 L (39.0-51.0) % MCV 89.9 (80.0-100.0) fL MCH 31.9 (27.0-34.0) pg MCHC 35.5 (32.0-36.0) % RDW 14.0 (11.6-17.2) % Plt Count 80 L (150-450) th/mm3 MPV 9.8 (7.0-11.0) fL Prelim Diff (Auto) Slide review pending Neut % (Auto) 53.7 (16.0-70.0) % Lymph % (Auto) 23.4 (9.0-44.0) % [place] % (Auto) 17.0 H (0.0-8.0) % Eos % (Auto) 5.1 H (0.0-4.0) % Baso % (Auto) 0.8 (0.0-2.0) % Neut # (Auto) 1.9 (1.8-7.7) th/mm3 Lymph # (Auto) 0.8 L (1.0-4.8) th/mm3 [place] # (Auto) 0.6 (0.0-0.9) th/mm3 Eos # (Auto) 0.2 (0.0-0.4) th/mm3 Baso # (Auto) 0.0 (0.0-0.2) th/mm3 WBC Differential . Diff Scan Auto diff confirmed Differential Comment . PT 10.2 (9.8-11.6) sec INR 1.0 Ratio APTT 26.6 (24.3-30.1) sec Sodium 138 (136-145) meq/L Potassium 4.0 (3.5-5.1) meq/L Chloride 104 (98-107) meq/L Carbon Dioxide 25.7 (21.0-32.0) meq/L Anion Gap 8 (5-15) meq/L BUN 21 H (7-18) mg/dL Creatinine 0.84 (0.60-1.30) mg/dL Estimated GFR Greater than 89 (>89) mL/min POC Glucose (68-110) mg/dl Random Glucose 87 (74-106) mg/dL Lactic Acid (0.4-2.0) mmol/L Calcium 9.4 (8.5-10.1) mg/dL Total Bilirubin 0.6 (0.2-1.0) mg/dL AST 119 H (15-37) U/L ALT 70 (12-78) U/L Alkaline Phosphatase 56 (45-117) U/L Total Protein 8.2 (6.4-8.2) g/dL Albumin 3.0 L (3.4-5.0) g/dL Urine Color (Yellw/Straw) Urine Clarity (Clear) Urine pH (5.0-8.5) Ur Specific [place] (1.002-1.035) Urine Protein (Neg-Trace) mg/dL Urine Glucose (UA) (Negative) mg/dL Urine Ketones (Negative) mg/dL Urine Occult Blood (Negative) Urine Nitrate (Negative) Urine Bilirubin (Negative) Urine Urobilinogen (Less than 2) mg/dL Ur Leukocyte Esterase (Negative) Urine RBC (0-3) /hpf Urine WBC (0-5) /hpf Urine Mucus (Occasional) /lpf Micro UA Comment Ur Microscopic Review Urine Culture Comments 08/20/18 08/20/18 08/21/18 Range/Units 21:17 21:17 07:35 WBC (4.0-11.0) th/mm3 RBC (4.50-5.90) mil/mm3 Hgb (13.0-17.0) gm/dL Hct (39.0-51.0) % MCV (80.0-100.0) fL MCH (27.0-34.0) pg MCHC (32.0-36.0) % RDW (11.6-17.2) % Plt Count (150-450) th/mm3 MPV (7.0-11.0) fL Prelim Diff (Auto) Neut % (Auto) (16.0-70.0) % Lymph % (Auto) (9.0-44.0) % [place] % (Auto) (0.0-8.0) % Eos % (Auto) (0.0-4.0) % Baso % (Auto) (0.0-2.0) % Neut # (Auto) (1.8-7.7) th/mm3 Lymph # (Auto) (1.0-4.8) th/mm3 [place] # (Auto) (0.0-0.9) th/mm3 Eos # (Auto) (0.0-0.4) th/mm3 Baso # (Auto) (0.0-0.2) th/mm3 WBC Differential Diff Scan Differential Comment PT (9.8-11.6) sec INR Ratio APTT (24.3-30.1) sec Sodium (136-145) meq/L Potassium (3.5-5.1) meq/L Chloride (98-107) meq/L Carbon Dioxide (21.0-32.0) meq/L Anion Gap (5-15) meq/L BUN (7-18) mg/dL Creatinine (0.60-1.30) mg/dL Estimated GFR (>89) mL/min POC Glucose 122 H (68-110) mg/dl Random Glucose (74-106) mg/dL Lactic Acid 0.9 (0.4-2.0) mmol/L Calcium (8.5-10.1) mg/dL Total Bilirubin (0.2-1.0) mg/dL AST (15-37) U/L ALT (12-78) U/L Alkaline Phosphatase (45-117) U/L Total Protein (6.4-8.2) g/dL Albumin (3.4-5.0) g/dL Urine Color Yellow (Yellw/Straw) Urine Clarity Clear (Clear) Urine pH 6.0 (5.0-8.5) Ur Specific [place] 1.023 (1.002-1.035) Urine Protein 100 H (Neg-Trace) mg/dL Urine Glucose (UA) Negative (Negative) mg/dL Urine Ketones Negative (Negative) mg/dL Urine Occult Blood Small H (Negative) Urine Nitrate Negative (Negative) Urine Bilirubin Negative (Negative) Urine Urobilinogen 4 or greater (Less than 2) mg/dL Ur Leukocyte Esterase Negative (Negative) Urine RBC 2 (0-3) /hpf Urine WBC 1 (0-5) /hpf Urine Mucus Few H (Occasional) /lpf Micro UA Comment Culture not ind Ur Microscopic Review Not Reportable Urine Culture Comments Culture not ind 08/21/18 Range/Units 11:12 WBC (4.0-11.0) th/mm3 RBC (4.50-5.90) mil/mm3 Hgb (13.0-17.0) gm/dL Hct (39.0-51.0) % MCV (80.0-100.0) fL MCH (27.0-34.0) pg MCHC (32.0-36.0) % RDW (11.6-17.2) % Plt Count (150-450) th/mm3 MPV (7.0-11.0) fL Prelim Diff (Auto) Neut % (Auto) (16.0-70.0) % Lymph % (Auto) (9.0-44.0) % [place] % (Auto) (0.0-8.0) % Eos % (Auto) (0.0-4.0) % Baso % (Auto) (0.0-2.0) % Neut # (Auto) (1.8-7.7) th/mm3 Lymph # (Auto) (1.0-4.8) th/mm3 [place] # (Auto) (0.0-0.9) th/mm3 Eos # (Auto) (0.0-0.4) th/mm3 Baso # (Auto) (0.0-0.2) th/mm3 WBC Differential Diff Scan Differential Comment PT (9.8-11.6) sec INR Ratio APTT (24.3-30.1) sec Sodium (136-145) meq/L Potassium (3.5-5.1) meq/L Chloride (98-107) meq/L Carbon Dioxide (21.0-32.0) meq/L Anion Gap (5-15) meq/L BUN (7-18) mg/dL Creatinine (0.60-1.30) mg/dL Estimated GFR (>89) mL/min POC Glucose 109 (68-110) mg/dl Random Glucose (74-106) mg/dL Lactic Acid (0.4-2.0) mmol/L Calcium (8.5-10.1) mg/dL Total Bilirubin (0.2-1.0) mg/dL AST (15-37) U/L ALT (12-78) U/L Alkaline Phosphatase (45-117) U/L Total Protein (6.4-8.2) g/dL Albumin (3.4-5.0) g/dL Urine Color (Yellw/Straw) Urine Clarity (Clear) Urine pH (5.0-8.5) Ur Specific [place] (1.002-1.035) Urine Protein (Neg-Trace) mg/dL Urine Glucose (UA) (Negative) mg/dL Urine Ketones (Negative) mg/dL Urine Occult Blood (Negative) Urine Nitrate (Negative) Urine Bilirubin (Negative) Urine Urobilinogen (Less than 2) mg/dL Ur Leukocyte Esterase (Negative) Urine RBC (0-3) /hpf Urine WBC (0-5) /hpf Urine Mucus (Occasional) /lpf Micro UA Comment Ur Microscopic Review Urine Culture Comments Imaging Data Attestation: I personally reviewed and interpreted this imaging study as follows : Radiologist's impression: Chest X-Ray 08/20/18 21:03 CONCLUSION: Suspected early or mild pneumonia of the left base. Face CT 08/20/18 21:03 CONCLUSION: 1. Mild facial cellulitis without perceptible abscess. 2. No acute bone destruction demonstrated. 3. Acute on chronic paranasal sinusitis. Head CT 08/20/18 21:03 CONCLUSION: No acute intracranial abnormality. . Discharge Plan Discharge Disposition Patient Disposition: 30 Still Patient Discharge Details Diagnosis: Pneumonia, Cellulitis of face, Sinusitis Physicians Team ED Provider: Lorena Esparza ED Midlevel Provider: Stephen Canseco Primary Care Provider: Primary Care Parul Benson Attending Provider: Rob Knapp Other Providers: [facility],Insurance ; Jamilah Gross Status ED Status: Left Department Discharge Information Discharge Date/Time: 08/21/18 03:36
[2018-08-20 21:35] LABS: Baso % (Auto) 0.8 % (0.0-2.0); Eos # (Auto) 0.2 th/mm3 (0.0-0.4); Eos % (Auto) 5.1 % (0.0-4.0); Hematocrit 37.9 % (39.0-51.0); Hemoglobin 13.5 gm/dL (13.0-17.0); Lymph # (Auto) 0.8 th/mm3 (1.0-4.8); Lymph % (Auto) 23.4 % (9.0-44.0); Mean Corpuscular HGB Conc 35.5 % (32.0-36.0); Mean Corpuscular Hemoglobin 31.9 pg (27.0-34.0); Mean Corpuscular Volume 89.9 fL (80.0-100.0); Mean Platelet Volume 9.8 fL (7.0-11.0); Mono # (Auto) 0.6 th/mm3 (0.0-0.9); Neut # (Auto) 1.9 th/mm3 (1.8-7.7); Neut % (Auto) 53.7 % (16.0-70.0); Platelet Count 80 th/mm3 (150-450); Red Blood Count 4.22 mil/mm3 (4.50-5.90); White Blood Count 3.6 th/mm3 (4.0-11.0)
[2018-08-20 21:40] LABS: Bilirubin,Urine Negative (Negative); Clarity,Urine Clear (Clear); Color,Urine Yellow (Yellw/Straw); Glucose,Urine (UA) Negative (Negative); Leukocyte Esterase,Urine Negative (Negative); Mucus,Urine Few /lpf (Occasional); Nitrite,Urine Negative (Negative); Specific Gravity,Urine 1.023 (1.002-1.035); Urobilinogen,Urine 4 or Greater mg/dL (Less than 2)
--- NOTE | 2018-08-20 21:42 | XR ---
EXAM DATE: 08/20/2018 9:03 PM EDT AGE/SEX: 48 years / Male INDICATIONS: Short of breath. CLINICAL DATA: This is the patient's initial encounter. Patient reports that signs and symptoms have been present for 1 day and indicates a pain score of 0/10. MEDICAL/SURGICAL HISTORY: None. None. COMPARISON: [facility] – [place], CHEST 1V SINGLE AP, 07/13/2018. . FINDINGS: Mild parenchymal consolidation seen of the left base. Right lung appears clear. No pleural effusion o r pneumothorax demonstrated. Heart size stable, within normal limits. CONCLUSION: Suspected early or mild pneumonia of the left base. Electronically signed by: Zheng Kimball MD 08/20/2018 9:41 PM EDT
[2018-08-20] MEDS ORDERED: Lidocaine 1% Inj 50 ML Vial INFILTRATN ONE (21:51)
[2018-08-20 21:57] LABS: Activated Partial Thrombo Time 26.6 sec (24.3-30.1); Prothrombin Time 10.2 sec (9.8-11.6)
[2018-08-20 21:58] LABS: Alanine Aminotransferase 70 U/L (12-78)
[2018-08-20] MEDS ORDERED: Vancomycin Inj 1 GM/200 ML PIGGYBACK IV.SIG SCH (22:00)
[2018-08-20] MEDS ORDERED: Sod Chloride 0.9% Inj 1,000 ML IV.SIG SCH (22:00)
[2018-08-20 22:01] LABS: Alkaline Phosphatase 56 U/L (45-117); Total Protein 8.2 g/dL (6.4-8.2)
[2018-08-20 22:02] LABS: Anion Gap 8 meq/L (5-15); Aspartate Aminotransferase 119 U/L (15-37); Blood Urea Nitrogen 21 mg/dL (7-18); Calcium 9.4 mg/dL (8.5-10.1); Carbon Dioxide 25.7 meq/L (21.0-32.0); Chloride 104 meq/L (98-107); Glomerular Filtration Rate Greater Than 89 mL/min (>89); Glucose,Random 87 mg/dL (74-106); Sodium 138 meq/L (136-145)
[2018-08-20] MEDS ORDERED: Piperacil/Tazo 3.375 GM Premix 50 ML IV.SIG ONE (22:48)
--- NOTE | 2018-08-20 23:06 | CT ---
EXAM DATE: 08/20/2018 9:16 PM EDT AGE/SEX: 48 years / Male INDICATIONS: Facial infection, evaluate for abscess. CLINICAL DATA: This is the patient's initial encounter. Patient reports that signs and symptoms have been present for 2 days and indicates a pain score of 3/10. MEDICAL/SURGICAL HISTORY: Chronic obstructive pulmonary disease. HIV. None. RADIATION DOSE: 37.89 CTDI (mGy) COMPARISON: No prior exams available for comparison. TECHNIQUE: Contiguous images in the axial and coronal planes were obtained using helical multirow de tector technique with 45 ml Omnipaque 350 (iohexol) nonionic water-soluble contrast as a single exam dose. Using automated exposure control and adjustment of the mA and/or kV according to patient size , radiation dose was kept as low as reasonably achievable to obtain optimal diagnostic quality images . DICOM format image data is available electronically for review and comparison. FINDINGS: Mild skin and subcutaneous edema seen around the orbits and nose. No organized or drainable fluid col lection is demonstrated. There is no lymphadenopathy. Major salivary glands are within normal limits. No acute bony abnormality demonstrated. Mild mucoperiosteal thickening seen of the paranasal sinuses. There is a fluid level in the left sphe noid air cell and a 13 mm mucus retention cyst of the left maxillary sinus. Patient is adentulous. CONCLUSION: 1. Mild facial cellulitis without perceptible abscess. 2. No acute bone destruction demonstrated. 3. Acute on chronic paranasal sinusitis. Electronically signed by: Zheng Kimball MD 08/20/2018 11:04 PM EDT
--- NOTE | 2018-08-20 23:07 | CT ---
EXAM DATE: 08/20/2018 9:16 PM EDT AGE/SEX: 48 years / Male INDICATIONS: Cephalgia, visual disturbances. CLINICAL DATA: This is the patient's initial encounter. Patient reports that signs and symptoms have been present for 1 day and indicates a pain score of 2/10. MEDICAL/SURGICAL HISTORY: Chronic obstructive pulmonary disease. HIV. None. RADIATION DOSE: 45.79 CTDI (mGy) COMPARISON: [facility] – [place], CT BRAIN W/O CONTRAST, 05/05/2018. [facility] – [place], CT FACIAL BONES W IV CON, 08/20/2018. . TECHNIQUE: CT of the head without contrast. Using automated exposure control and adjustment of the mA and/or kV according to patient size, radiation dose was kept as low as reasonably achievable to ob tain optimal diagnostic quality images. DICOM format image data is available electronically for revi ew and comparison. FINDINGS: Cerebrum: The ventricles are normal for age. No evidence of midline shift, mass lesion, hemorrhage or acute infarction. No extraaxial fluid collections are seen. Posterior Fossa: The cerebellum and brainstem are intact. The 4th ventricle is midline. The cerebe llopontine angle is unremarkable. Extracranial: The visualized portion of the orbits is intact. Skull: The calvaria is intact. No evidence of skull fracture. CONCLUSION: No acute intracranial abnormality. . Electronically signed by: Zheng Kimball MD 08/20/2018 11:06 PM EDT
[2018-08-21] MEDS ORDERED: Vancomycin Consult Pharmacy OTHER PRN (00:54)
[2018-08-21] MEDS ORDERED: Bisacodyl 10 MG Supp RECTAL PRN (00:55)
--- NOTE | 2018-08-21 01:06 | P.HP ---
History of Present Illness Service: [facility] Primary Care Physician: No Primary Care Physician History of Present Illness: 48-year-old male with past medical history significant for HIV (not on antiretroviral medications), hepatitis C and COPD presents to the emergency department for the evaluation of the left sided facial cellulitis. The patient reports that his face started becoming erythematous and swollen yesterday. He reports it is now painful. He endorses associated fever/chills. The patient has had a cough with accompanying shortness of breath times 2 weeks. He complains of a headache. Denies chest pain. No abdominal pain. No nausea/ vomiting/diarrhea. No lateralizing signs/symptoms. The patient states he does not wish to take any antiretroviral medications and that he understands the consequences. Inpatient Certification: I certify that the inpatient services were ordered in accordance with Medicare regulations governing the order. This includes certification that hospital inpatient services are reasonable and necessary and in the case of services not specified as inpatient-only under 42 CFR 419.22(n), that they are appropriately provided as inpatient services in accordance to with the 2-midnight benchmark under 43 CFR 412.3(e) Estimated Total Length of Stay (Days): 2 Plans for Post Hospital Care: Not yet determined Review of Systems All other systems reviewed negative except as stated in HPI [facility] - History History 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 - Medical History Medical History: Medical History (Last Reviewed 08/21/18 @ 01:00 by Hermila Elizalde MD) Anxiety Bipolar 1 disorder COPD (chronic obstructive pulmonary disease) Depression HIV disease Hepatitis C History of MRSA infection Neuropathy PTSD (post-traumatic stress disorder) Pneumocystosis pneumonia Suicidal ideations - Surgical History Surgical History: Surgical History (Last Reviewed 08/21/18 @ 01:00 by Hermila Elizalde MD) No history of previous surgery - Family History Family History: Family History (Last Updated 08/21/18 @ 01:00 by Hermila Elizalde MD) Other Diabetes mellitus - Tobacco History Second Hand Smoke Exposure: Yes Tobacco Use In Past 30 Days: Yes Smoking Status: Current every day smoker Tobacco Type: Cigarettes - Alcohol History How Often Do You Have a Drink Containing Alcohol: Never - Substance Use History Substance History: Active Abuse - Substance Use Type Marijuana Status: Active Route Used: By Mouth Reason for Use: Calm Down - Travel History Recent Travel in the [place] Within the Last 8 Weeks: No Recent Travel Out of the Country Within the Last 8 Weeks: No - Immunization History Tetanus Immunization: >5 Years Hx Influenza Vaccine This Season: No Medications and Allergies Active Medications: Active Medications Vancomycin/Sodium Chloride (Vancomycin Inj) 1 gm in 200 mls @ 200 mls/hr IV.SIG DOPE MIXER MINOR Sodium Chloride (Ns Inj) 1,000 mls @ 0 mls/hr IV.SIG BOLUS MINOR Last Infusion: 08/20/18 23:56 Dose: Infused Allergies Allergy/AdvReac Type Severity Reaction Status Date / Time haloperidol Allergy Severe Swelling Verified 08/20/18 19:50 Home Medications Medication Instructions Recorded Confirmed Type gabapentin 600 mg PO TID 08/20/18 08/20/18 History Exam Vital signs: Vital Signs 08/20/18 19:43 08/20/18 20:26 08/20/18 21:24 Temperature 100.5 F H Pulse Rate 108 H 94 H 98 H Respiratory Rate 16 20 18 Blood Pressure 119/80 130/74 136/72 Pulse Oximetry 95 95 95 08/20/18 22:00 08/20/18 22:44 Temperature 98.9 F Pulse Rate 81 Respiratory Rate 18 Blood Pressure 103/57 L Pulse Oximetry 95 Intake & Output 08/20/18 08/20/18 08/21/18 06:59 18:59 06:59 Intake Total 1050 / 1050 Balance 1050 / 1050 Weight 99.79 kg Intake: IV 1050 / 1050 Zosyn 3.375 GM Premix 50 ML @ 50 / 50 100 mls/hr IV.SIG ONCE ONE Rx#: [id number] NS Inj 1,000 ML @ Wide Open IV. 1000 / 1000 SIG BOLUS MINOR Rx#:[id number] Narrative: Gen.: No acute distress Head: Normocephalic. Atraumatic. EENT: Pupils equal round and reactive to light. Nose without drainage. Airway intact. Throat without injection. Cardiovascular: Regular rate and rhythm. No murmurs, rubs or gallops. Respiratory: Lungs clear to auscultation bilaterally. No wheezes or rhonchi. Abdomen: Soft, nontender, nondistended. No peritoneal signs. Musculoskeletal: No gross deformities. No edema. Skin: Erythema and edema surrounding the left side of the face. No periorbital involvement. No areas of drainage. Neuro: Sensory and motor grossly intact. Cranial nerves II through XII grossly intact. Results - Labs CBC & Chem 7: 08/20/18 21:17 08/20/18 21:17 Labs: Laboratory Results - last 24 hr 08/20/18 08/20/18 08/20/18 21:17 21:17 21:17 WBC 3.6 L RBC 4.22 L Hgb 13.5 Hct 37.9 L MCV 89.9 MCH 31.9 MCHC 35.5 RDW 14.0 Plt Count 80 L MPV 9.8 Prelim Diff (Auto) Slide review pending Neut % (Auto) 53.7 Lymph % (Auto) 23.4 Dawson % (Auto) 17.0 H Eos % (Auto) 5.1 H Baso % (Auto) 0.8 Neut # (Auto) 1.9 Lymph # (Auto) 0.8 L Dawson # (Auto) 0.6 Eos # (Auto) 0.2 Baso # (Auto) 0.0 WBC Differential . Diff Scan Auto diff confirmed Differential Comment . PT 10.2 INR 1.0 APTT 26.6 Sodium 138 Potassium 4.0 Chloride 104 Carbon Dioxide 25.7 Anion Gap 8 BUN 21 H Creatinine 0.84 Estimated GFR Greater than 89 Random Glucose 87 Lactic Acid Calcium 9.4 Total Bilirubin 0.6 AST 119 H ALT 70 Alkaline Phosphatase 56 Total Protein 8.2 Albumin 3.0 L Urine Color Urine Clarity Urine pH Ur Specific [place] Urine Protein Urine Glucose (UA) Urine Ketones Urine Occult Blood Urine Nitrate Urine Bilirubin Urine Urobilinogen Ur Leukocyte Esterase Urine RBC Urine WBC Urine Mucus Micro UA Comment Ur Microscopic Review Urine Culture Comments 08/20/18 08/20/18 21:17 21:17 WBC RBC Hgb Hct MCV MCH MCHC RDW Plt Count MPV Prelim Diff (Auto) Neut % (Auto) Lymph % (Auto) Dawson % (Auto) Eos % (Auto) Baso % (Auto) Neut # (Auto) Lymph # (Auto) Dawson # (Auto) Eos # (Auto) Baso # (Auto) WBC Differential Diff Scan Differential Comment PT INR APTT Sodium Potassium Chloride Carbon Dioxide Anion Gap BUN Creatinine Estimated GFR Random Glucose Lactic Acid 0.9 Calcium Total Bilirubin AST ALT Alkaline Phosphatase Total Protein Albumin Urine Color Yellow Urine Clarity Clear Urine pH 6.0 Ur Specific [place] 1.023 Urine Protein 100 H Urine Glucose (UA) Negative Urine Ketones Negative Urine Occult Blood Small H Urine Nitrate Negative Urine Bilirubin Negative Urine Urobilinogen 4 or greater Ur Leukocyte Esterase Negative Urine RBC 2 Urine WBC 1 Urine Mucus Few H Micro UA Comment Culture not ind Ur Microscopic Review Not Reportable Urine Culture Comments Culture not ind - Imaging Impressions Chest X-Ray 08/20/18 21:03 CONCLUSION: Suspected early or mild pneumonia of the left base. Face CT 08/20/18 21:03 CONCLUSION: 1. Mild facial cellulitis without perceptible abscess. 2. No acute bone destruction demonstrated. 3. Acute on chronic paranasal sinusitis. Head CT 08/20/18 21:03 CONCLUSION: No acute intracranial abnormality. . Caprini VTE Risk Assessment Caprini VTE Risk Assessment: No/Low Risk (score <= 1) Caprini Risk Assessment Model: Point Value = 1 Point Value = 2 Point Value = 3 Point Value = 5 Age 41-60 Minor surgery BMI > 25 kg/m2 Swollen legs Varicose veins or History of unexplained or recurrent spontaneous Oral contraceptives or hormone replacement Sepsis (< 1 month) Serious lung disease, including pneumonia (< 1 month) Abnormal pulmonary function Acute myocardial infarction Congestive heart failure (< 1 month) History of inflammatory bowel disease Medical patient at bed rest Age 61-74 Arthroscopic surgery Major open surgery (> 45 min) Laparoscopic surgery (> 45 min) Malignancy Confined to bed (> 72 hours) Immobilizing plaster cast Central venous access Age >= 75 History of VTE Family history of VTE Factor V Leiden Prothrombin [id number] Lupus anticoagulant Anticardiolipin antibodies Elevated serum homocysteine Heparin-induced thrombocytopenia Other congenital or acquired thrombophilia Stroke (< 1 month) Elective arthroplasty Hip, pelvis, or leg fracture Acute spinal cord injury (< 1 month) Prophylaxis Regimen: Total Risk Factor Score Risk Level Prophylaxis Regimen 0-1 Low Early ambulation 2 Moderate Order ONE of the following: *Sequential Compression Device (SCD) *Heparin 5000 units SQ BID 3-4 Higher Order ONE of the following medications: *Heparin 5000 units SQ TID *Enoxaparin/Lovenox 40 mg SQ daily (WT < 150 kg, CrCl > 30 mL/min) *Enoxaparin/Lovenox 30 mg SQ daily (WT < 150 kg, CrCl > 10-29 mL/min) *Enoxaparin/Lovenox 30 mg SQ BID (WT < 150 kg, CrCl > 30 mL/min) AND/OR *Sequential Compression Device (SCD) 5 or more Highest Order ONE of the following medications: *Heparin 5000 units SQ TID (Preferred with Epidurals) *Enoxaparin/Lovenox 40 mg SQ daily (WT < 150 kg, CrCl > 30 mL/min) *Enoxaparin/Lovenox 30 mg SQ daily (WT < 150 kg, CrCl > 10-29 mL/min) *Enoxaparin/Lovenox 30 mg SQ BID (WT < 150 kg, CrCl > 30 mL/min) AND *Sequential Compression Device (SCD) Assessment and Plan - Plan Assessment/plan: 1. Facial cellulitis Vancomycin/Zosyn Face CT shows no drainable areas of abscess 2. Pneumonia Chest x-ray significant for early or mild pneumonia of the left base Antibiotics as above 3. HIV Lymphocyte profile pending Patient does not wish to take antiretroviral medications Patient reports last CD4 cell count was 0 approximately 3-4 years ago 4. Hepatitis C Patient does not wish to have any interventions at this time 5. COPD Duo nebs as needed FEN Regular diet Electrolytes: Monitor and replete as needed NS at 125 cc/hr
[2018-08-21] MEDS ORDERED: Vancomycin Inj 1,000 MG in Sodium Chlor 0.9% Inj 250 ML IV.SIG PRN (01:30)
[2018-08-21] MEDS: Sod Chloride 0.9% Inj 1,000 ML IV.CONT SCH ×3 (01:30→17:42)
[2018-08-21] MEDS ORDERED: Vancomycin Inj 2,500 MG in Sodium Chlor 0.9% Inj 500 ML IV.SIG ONE (03:00)
[2018-08-21] MEDS ORDERED: Morphine Inj 4 MG/ML Vial IV.PUSH ONE (03:43)
[2018-08-21] MEDS ORDERED: Vancomycin Inj 1,500 MG in Sodium Chlor 0.9% Inj 500 ML IV.SIG ONE (04:00)
[2018-08-21] MEDS: Piperacil/Tazo 3.375 GM Premix 50 ML IV.SIG SCH ×3 (05:53→17:41)
[2018-08-21] MEDS: Acetaminophen 325 MG Tablet PO PRN (08:05)
[2018-08-21] MEDS: Senna/Docusate Sodium 8.6/50 MG Tablet PO SCH ×2 (08:06→20:09)
[2018-08-21] MEDS: Vancomycin Inj 2,000 MG in Sodium Chlor 0.9% Inj 500 ML IV.SIG SCH (13:05)
--- NOTE | 2018-08-21 14:01 | P.PNIM ---
Subjective Interval history: Patient complains of a headache as well as left-sided facial pain. He also is having a cough. He does not have any other complaints. Physical Exam Vital signs: Vital Signs 08/20/18 19:43 08/20/18 20:26 08/20/18 21:24 Temperature 100.5 F H Pulse Rate 108 H 94 H 98 H Respiratory Rate 16 20 18 Blood Pressure 119/80 130/74 136/72 Pulse Oximetry 95 95 95 08/20/18 22:00 08/20/18 22:44 08/21/18 02:02 Temperature 98.9 F Pulse Rate 81 80 Respiratory Rate 18 16 Blood Pressure 103/57 L 103/64 Pulse Oximetry 95 08/21/18 04:00 08/21/18 08:00 08/21/18 12:00 Temperature 97.7 F 102.4 F H 100.0 F H Pulse Rate 78 118 H 105 H Respiratory Rate 17 16 16 Blood Pressure 141/67 H 118/67 102/53 L Pulse Oximetry 97 89 L 93 L Intake & Output 08/20/18 08/21/18 08/21/18 18:59 06:59 18:59 Intake Total 2310 / 2310 1100 / 1100 Output Total 250 / 250 Balance 2060 / 2060 1100 / 1100 Weight 100.5 kg Intake: IV 1830 / 1830 1100 / 1100 NS Inj 1,000 ML @ 125 mls/hr IV 1000 / 1000 .CONT .Q8H MINOR Rx#:[id number] Zosyn 3.375 GM Premix 50 ML @ 50 / 50 100 / 100 100 mls/hr IV.SIG Q6H MINOR Rx#: [id number] NS Inj 1,000 ML @ Wide Open IV. 1000 / 1000 SIG BOLUS MINOR Rx#:[id number] Vancomycin Inj 1,000 MG In NS 250 / 250 Inj 250 ML @ 200 mls/hr IV.SIG RACK MAKER PRN Rx#:[id number] Vancomycin Inj 1,500 MG In NS 530 / 530 Inj 500 ML @ 265 mls/hr IV.SIG ONCE ONE Rx#:[id number] Oral 480 / 480 Output: Urine 250 / 250 Other: Date of Last Bowel Movement 08/17/18 Weight On Admission 100.5 kg Narrative: General patient in no acute distress HEENT left-sided facial cellulitis near the left cheek. No fluctuance Cardiovascular S1-S2 audible, RRR, no murmurs rubs or gallops Respiratory patient complaining of a cough. Crackles at the left base. Abdomen soft, nontender, nondistended, normal bowel sounds Extremities no edema. Neuro patient moves all 4 extremities sensation is intact bilaterally Results - Labs CBC & Chem 7: 08/20/18 21:17 10 21:17 Laboratory Results - last 24 hr 08/20/18 08/20/18 08/20/18 21:17 21:17 21:17 WBC 3.6 L RBC 4.22 L Hgb 13.5 Hct 37.9 L MCV 89.9 MCH 31.9 MCHC 35.5 RDW 14.0 Plt Count 80 L MPV 9.8 Prelim Diff (Auto) Slide review pending Neut % (Auto) 53.7 Lymph % (Auto) 23.4 Pepin % (Auto) 17.0 H Eos % (Auto) 5.1 H Baso % (Auto) 0.8 Neut # (Auto) 1.9 Lymph # (Auto) 0.8 L Pepin # (Auto) 0.6 Eos # (Auto) 0.2 Baso # (Auto) 0.0 WBC Differential . Diff Scan Auto diff confirmed Differential Comment . PT 10.2 INR 1.0 APTT 26.6 Sodium 138 Potassium 4.0 Chloride 104 Carbon Dioxide 25.7 Anion Gap 8 BUN 21 H Creatinine 0.84 Estimated GFR Greater than 89 POC Glucose Random Glucose 87 Lactic Acid Calcium 9.4 Total Bilirubin 0.6 AST 119 H ALT 70 Alkaline Phosphatase 56 Total Protein 8.2 Albumin 3.0 L Urine Color Urine Clarity Urine pH Ur Specific [place] Urine Protein Urine Glucose (UA) Urine Ketones Urine Occult Blood Urine Nitrate Urine Bilirubin Urine Urobilinogen Ur Leukocyte Esterase Urine RBC Urine WBC Urine Mucus Micro UA Comment Ur Microscopic Review Urine Culture Comments 08/20/18 08/20/18 08/21/18 21:17 21:17 07:35 WBC RBC Hgb Hct MCV MCH MCHC RDW Plt Count MPV Prelim Diff (Auto) Neut % (Auto) Lymph % (Auto) Pepin % (Auto) Eos % (Auto) Baso % (Auto) Neut # (Auto) Lymph # (Auto) Pepin # (Auto) Eos # (Auto) Baso # (Auto) WBC Differential Diff Scan Differential Comment PT INR APTT Sodium Potassium Chloride Carbon Dioxide Anion Gap BUN Creatinine Estimated GFR POC Glucose 122 H Random Glucose Lactic Acid 0.9 Calcium Total Bilirubin AST ALT Alkaline Phosphatase Total Protein Albumin Urine Color Yellow Urine Clarity Clear Urine pH 6.0 Ur Specific [place] 1.023 Urine Protein 100 H Urine Glucose (UA) Negative Urine Ketones Negative Urine Occult Blood Small H Urine Nitrate Negative Urine Bilirubin Negative Urine Urobilinogen 4 or greater Ur Leukocyte Esterase Negative Urine RBC 2 Urine WBC 1 Urine Mucus Few H Micro UA Comment Culture not ind Ur Microscopic Review Not Reportable Urine Culture Comments Culture not ind 08/21/18 11:12 WBC RBC Hgb Hct MCV MCH MCHC RDW Plt Count MPV Prelim Diff (Auto) Neut % (Auto) Lymph % (Auto) Pepin % (Auto) Eos % (Auto) Baso % (Auto) Neut # (Auto) Lymph # (Auto) Pepin # (Auto) Eos # (Auto) Baso # (Auto) WBC Differential Diff Scan Differential Comment PT INR APTT Sodium Potassium Chloride Carbon Dioxide Anion Gap BUN Creatinine Estimated GFR POC Glucose 109 Random Glucose Lactic Acid Calcium Total Bilirubin AST ALT Alkaline Phosphatase Total Protein Albumin Urine Color Urine Clarity Urine pH Ur Specific [place] Urine Protein Urine Glucose (UA) Urine Ketones Urine Occult Blood Urine Nitrate Urine Bilirubin Urine Urobilinogen Ur Leukocyte Esterase Urine RBC Urine WBC Urine Mucus Micro UA Comment Ur Microscopic Review Urine Culture Comments Microbiology 08/20/18 21:17 Blood - Peripheral Aerobic Blood Culture - Preliminary No growth in 1 day 08/20/18 21:17 Blood - Peripheral Anaerobic Blood Culture - Preliminary No growth in 1 day 08/20/18 21:17 Blood - Peripheral Aerobic Blood Culture - Preliminary No growth in 1 day 08/20/18 21:17 Blood - Peripheral Anaerobic Blood Culture - Preliminary No growth in 1 day - Imaging Impressions Chest X-Ray 08/20/18 21:03 CONCLUSION: Suspected early or mild pneumonia of the left base. Face CT 08/20/18 21:03 CONCLUSION: 1. Mild facial cellulitis without perceptible abscess. 2. No acute bone destruction demonstrated. 3. Acute on chronic paranasal sinusitis. Head CT 08/20/18 21:03 CONCLUSION: No acute intracranial abnormality. . Assessment and Plan - Plan This patient is a 48-year-old male with a diagnosis of HIV. The patient states he was on treatment for nearly 20 years however over the past 10 years he stopped taking the medication. He presented to our emergency department with complaints of left-sided facial swelling as well as a cough that has been ongoing for the past few days. The patient was admitted for pneumonia as well as left facial cellulitis. 1. Left facial cellulitis. Blood cultures have been ordered and are currently pending. Continue IV vancomycin and Zosyn. CT scan of the face was done which does not show any evidence of an abscess. The patient denies having any trauma to the left side of his face and is unclear how the patient developed cellulitis on that side of his face. Continue current management Continue current pain medication regimen. 2. Left basilar community-acquired pneumonia Imaging shows left-sided basilar pneumonia. Continue IV antibiotics. Sputum culture will be ordered. Patient does not have any complaints of shortness of breath and he is currently on room air. 3. HIV not on treatment The patient has a diagnosis of HIV. Infectious disease consult has been placed. As of now the patient states he does not want to be on treatment for HIV and has no specific reason as to why he does not want treatment. I will follow-up with ID with recommendations for management of his HIV. 4. COPD Continue breathing treatments as needed. Currently the patient is on room air without any complaints of shortness of breath.
--- NOTE | 2018-08-21 21:12 | ECG ---
Date Performed: 08/20/2018 Time Performed: 21:27:06 PTAGE: 48 years EKG: Sinus rhythm INDETERMINATE AXIS ABNORMAL ECG Since the PREVIOUS TRACING , no significant change noted DOCTOR: Timi Jsoe Interpretating Date/Time 08/21/2018 21:11:24
[2018-08-22] MEDS: Piperacil/Tazo 3.375 GM Premix 50 ML IV.SIG SCH ×2 (01:16→05:00)
[2018-08-22] MEDS: Vancomycin Inj 2,000 MG in Sodium Chlor 0.9% Inj 500 ML IV.SIG SCH ×2 (01:17→14:35)
[2018-08-22] MEDS: Acetaminophen 325 MG Tablet PO PRN ×2 (01:23→20:18)
[2018-08-22] MEDS: Sod Chloride 0.9% Inj 1,000 ML IV.CONT SCH ×3 (04:14→17:05)
[2018-08-22 07:49] LABS: Hematocrit 32.8 % (39.0-51.0); Hemoglobin 11.6 gm/dL (13.0-17.0); Mean Corpuscular HGB Conc 35.4 % (32.0-36.0); Mean Corpuscular Hemoglobin 32.2 pg (27.0-34.0); Mean Corpuscular Volume 90.9 fL (80.0-100.0); Mean Platelet Volume 9.4 fL (7.0-11.0); Platelet Count 60 th/mm3 (150-450); Red Blood Count 3.61 mil/mm3 (4.50-5.90); Red Cell Distribution Width 14.2 % (11.6-17.2); White Blood Count 2.1 th/mm3 (4.0-11.0)
[2018-08-22] MEDS: Senna/Docusate Sodium 8.6/50 MG Tablet PO SCH ×2 (08:01→20:10)
[2018-08-22 08:20] LABS: Calcium 7.6 mg/dL (8.5-10.1); Carbon Dioxide 23.4 meq/L (21.0-32.0); Potassium 3.9 meq/L (3.5-5.1)
[2018-08-22 08:48] LABS: Eosinophils 17 % (0-4); Lymphocytes 12 % (9-44); Monocytes 14 % (0-8); Ovalocytes 1+; Platelet Morphology Normal (Normal)
--- NOTE | 2018-08-22 10:43 | P.PNIM ---
Physical Exam Vital signs: Vital Signs 08/21/18 12:00 08/21/18 16:00 08/21/18 19:49 Temperature 100.0 F H 99.5 F 98.2 F Pulse Rate 105 H 92 H 90 Respiratory Rate 16 16 17 Blood Pressure 102/53 L 103/56 L 97/88 L Pulse Oximetry 93 L 97 93 L 08/22/18 00:00 08/22/18 04:00 08/22/18 07:59 Temperature 98.4 F 98.8 F Pulse Rate 78 72 66 Respiratory Rate 20 20 16 Blood Pressure 119/70 104/51 L Pulse Oximetry 96 94 L Intake & Output 08/21/18 08/22/18 08/22/18 18:59 06:59 18:59 Intake Total 3870 / 3870 1620 / 1620 1000 / 1000 Output Total 900 / 900 Balance 2970 / 2970 1620 / 1620 1000 / 1000 Intake: IV 2670 / 2670 1620 / 1620 1000 / 1000 NS Inj 1,000 ML @ 125 mls/hr IV 2000 / 2000 1000 / 1000 1000 / 1000 .CONT .Q8H MINOR Rx#:[id number] Zosyn 3.375 GM Premix 50 ML @ 150 / 150 100 / 100 100 mls/hr IV.SIG Q6H MINOR Rx#: [id number] Vancomycin Inj 2,000 MG In NS 520 / 520 520 / 520 Inj 500 ML @ 250 mls/hr IV.SIG Q12H MINOR Rx#:[id number] Oral 1200 / 1200 Output: Urine 900 / 900 Other: Date of Last Bowel Movement 08/17/18 # Bowel Movements 0 Results - Labs CBC & Chem 7: 08/22/18 07:02 08/22/18 07:02 Laboratory Results - last 24 hr 08/21/18 08/22/18 08/22/18 11:12 07:02 07:02 WBC 2.1 L RBC 3.61 L Hgb 11.6 L Hct 32.8 L MCV 90.9 MCH 32.2 MCHC 35.4 RDW 14.2 Plt Count 60 L MPV 9.4 Prelim Diff (Auto) Manual diff required WBC Differential Manual diff final Seg Neuts % (Manual) 47 Band Neuts % (Manual) 10 H Lymphocytes % (Manual) 12 Monocytes % (Manual) 14 H Eosinophils % (Manual) 17 H Abs Neuts (Manual) 1.2 L Differential Comment . Platelet Estimate Low L Platelet Morphology Normal Ovalocytes 1+ H Sodium 143 Potassium 3.9 Chloride 112 H D Carbon Dioxide 23.4 Anion Gap 8 BUN 11 Creatinine 0.91 Estimated GFR 89 POC Glucose 109 Random Glucose 87 Calcium 7.6 L D Microbiology 08/20/18 21:17 Blood - Peripheral Aerobic Blood Culture - Preliminary No growth in 1 day 08/20/18 21:17 Blood - Peripheral Anaerobic Blood Culture - Preliminary No growth in 1 day 08/20/18 21:17 Blood - Peripheral Aerobic Blood Culture - Preliminary No growth in 1 day 08/20/18 21:17 Blood - Peripheral Anaerobic Blood Culture - Preliminary No growth in 1 day Assessment and Plan - Plan This patient is a 48-year-old male with a diagnosis of HIV. The patient states he was on treatment for nearly 20 years however over the past 10 years he stopped taking the medication. He presented to our emergency department with complaints of left-sided facial swelling as well as a cough that has been ongoing for the past few days. The patient was admitted for pneumonia as well as left facial cellulitis. 1. Left facial cellulitis. Blood cultures have been ordered and are currently pending. Continue IV vancomycin and Zosyn. CT scan of the face was done which does not show any evidence of an abscess. The patient denies having any trauma to the left side of his face and is unclear how the patient developed cellulitis on that side of his face. Continue current management Continue current pain medication regimen. 2. Left basilar community-acquired pneumonia Imaging shows left-sided basilar pneumonia. Continue IV antibiotics. Sputum culture will be ordered. Patient does not have any complaints of shortness of breath and he is currently on room air. 3. HIV not on treatment The patient has a diagnosis of HIV. Infectious disease consult has been placed. As of now the patient states he does not want to be on treatment for HIV and has no specific reason as to why he does not want treatment. I will follow-up with ID with recommendations for management of his HIV. 4. COPD Continue breathing treatments as needed. Currently the patient is on room air without any complaints of shortness of breath.
[2018-08-22] MEDS ORDERED: Sodium Chloride 0.9% 2 ML Flush PRN IV.FLUSH (10:56)
--- NOTE | 2018-08-22 11:12 | P.PNIM ---
Subjective Interval history: Patient complains of a headache today. He also says that the light is making his headache worse. He does not have any other complaints. Physical Exam Vital signs: Vital Signs 08/21/18 12:00 08/21/18 16:00 08/21/18 19:49 Temperature 100.0 F H 99.5 F 98.2 F Pulse Rate 105 H 92 H 90 Respiratory Rate 16 16 17 Blood Pressure 102/53 L 103/56 L 97/88 L Pulse Oximetry 93 L 97 93 L 08/22/18 00:00 08/22/18 04:00 08/22/18 07:59 Temperature 98.4 F 98.8 F Pulse Rate 78 72 66 Respiratory Rate 20 20 16 Blood Pressure 119/70 104/51 L Pulse Oximetry 96 94 L Intake & Output 08/21/18 08/22/18 08/22/18 18:59 06:59 18:59 Intake Total 3870 / 3870 1620 / 1620 1000 / 1000 Output Total 900 / 900 Balance 2970 / 2970 1620 / 1620 1000 / 1000 Intake: IV 2670 / 2670 1620 / 1620 1000 / 1000 NS Inj 1,000 ML @ 125 mls/hr IV 2000 / 2000 1000 / 1000 1000 / 1000 .CONT .Q8H MINOR Rx#:[id number] Zosyn 3.375 GM Premix 50 ML @ 150 / 150 100 / 100 100 mls/hr IV.SIG Q6H MINOR Rx#: [id number] Vancomycin Inj 2,000 MG In NS 520 / 520 520 / 520 Inj 500 ML @ 250 mls/hr IV.SIG Q12H MINOR Rx#:[id number] Oral 1200 / 1200 Output: Urine 900 / 900 Other: Date of Last Bowel Movement 08/17/18 # Bowel Movements 0 Narrative: General patient is complaining of a headache, he also complains of neck pain when moving his head. HEENT extraocular movements are intact. The patient combines of neck pain when he moves his neck. Cardiovascular S1-S2 audible, RRR, no murmurs rubs or gallops Respiratory left basilar crackles. Abdomen soft, nontender, nondistended, normal bowel sounds Extremities no edema 2+ distal pulses in bilateral upper and lower extremities Neuro patient is alert and oriented x3. He can move all 4 extremities sensation is intact bilaterally. The patient cerebellar signs are intact. Results - Labs CBC & Chem 7: 08/22/18 07:02 08/22/18 07:02 Laboratory Results - last 24 hr 08/21/18 08/22/18 08/22/18 11:12 07:02 07:02 WBC 2.1 L RBC 3.61 L Hgb 11.6 L Hct 32.8 L MCV 90.9 MCH 32.2 MCHC 35.4 RDW 14.2 Plt Count 60 L MPV 9.4 Prelim Diff (Auto) Manual diff required WBC Differential Manual diff final Seg Neuts % (Manual) 47 Band Neuts % (Manual) 10 H Lymphocytes % (Manual) 12 Monocytes % (Manual) 14 H Eosinophils % (Manual) 17 H Abs Neuts (Manual) 1.2 L Differential Comment . Platelet Estimate Low L Platelet Morphology Normal Ovalocytes 1+ H Sodium 143 Potassium 3.9 Chloride 112 H D Carbon Dioxide 23.4 Anion Gap 8 BUN 11 Creatinine 0.91 Estimated GFR 89 POC Glucose 109 Random Glucose 87 Calcium 7.6 L D Microbiology 08/20/18 21:17 Blood - Peripheral Aerobic Blood Culture - Preliminary No growth in 2 days 08/20/18 21:17 Blood - Peripheral Anaerobic Blood Culture - Preliminary No growth in 2 days 08/20/18 21:17 Blood - Peripheral Aerobic Blood Culture - Preliminary No growth in 2 days 08/20/18 21:17 Blood - Peripheral Anaerobic Blood Culture - Preliminary No growth in 2 days Assessment and Plan - Plan This patient is a 48-year-old male with a diagnosis of HIV. The patient states he was on treatment for nearly 20 years however over the past 10 years he stopped taking the medication. He presented to our emergency department with complaints of left-sided facial swelling as well as a cough that has been ongoing for the past few days. The patient was admitted for pneumonia as well as left facial cellulitis. 1. Suspected meningitis The patient is complaining of a headache today as well as pain in his neck. As I entered the room the patient had the lights off and curtains covering the windows. He states that the light is bothering his eyes. He feels more comfortable in the dark. The pain in his neck is worse with movement but he claims that the pain is from the way he slept last night. He continues to spike fevers and given that the patient has a history of HIV and is not on treatment the suspicion for meningitis is high given his symptoms. A lumbar puncture was discussed with the patient however at this time he is refusing the lumbar puncture. He says he wants to think about it and will possibly consider it tomorrow. He also states that 3 months ago he had a lumbar puncture done at another facility which returned negative for meningitis. I will start the patient on IV antibiotics for meningitis as well as acyclovir. Continue IV fluids. Infectious disease will be consulted I would appreciate their recommendations. 2. Left facial cellulitis. Blood cultures have been ordered and are currently pending. Continue IV antibiotics. CT scan of the face was done which does not show any evidence of an abscess. The patient denies having any trauma to the left side of his face and is unclear how the patient developed cellulitis on that side of his face. Continue current management Continue current pain medication regimen. 3. Left basilar community-acquired pneumonia Imaging shows left-sided basilar pneumonia. Continue IV antibiotics. Sputum culture will be ordered. Patient does not have any complaints of shortness of breath and he is currently on room air. 3. HIV not on treatment The patient has a diagnosis of HIV. As of now the patient states he does not want to be on treatment for HIV and has no specific reason for not wanting treatment. 4. COPD Continue breathing treatments as needed. Currently the patient is on room air without any complaints of shortness of breath.
[2018-08-22] MEDS: ACYCLOVIR IV.SIG SCH ×2 (12:23→20:09)
[2018-08-22] MEDS: SODIUM CHLOR 0.9% IV.SIG SCH ×2 (12:23→20:09)
--- NOTE | 2018-08-22 15:15 | P.PNADD ---
Addendum to Inpatient Note Additional information: pt seen and examined full note to follow damien Knapp
--- NOTE | 2018-08-22 15:30 | P.CONID ---
History of Present Illness Service: ID Consult date: 08/22/18 Requesting Physician: Rob Knapp Reason for Consult: HIV disaes, meningitis Primary Care Provider: No Primary Care Physician Family Provider: No Primary Care Physician History of Present Illness: 48 yo male with HIV disease/ AIDS (last CD4 29 in Apr 2018), who stopped taking his HAART and follow with HIV provider 7 yrs ago and refuses to take any HIV medx or profilaxis presented with tender lesion over L temporal area thought to be small abscess and cellulits He subsequnetly started to have fever Per p fevers and headaches for 2 months ? fever low grade < 101 F, but in pt it was 102.4 Headach also about 2 months + some nausea, vomiting, diarrhea No vomiting today Pt refused LP but is agreable to MRI He reports quite a few hospitalisations related to OIs including PCP PNA Lymphopenia, neutropenia and thrombocytopenia noted CXR and head CT negative LP done in April: negative crypto, CMV Review of Systems All other systems reviewed negative except as stated in HPI PMFSH - History History 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, Medical Record - Medical History Medical History: Medical History (Last Reviewed 08/22/18 @ 15:25 by Diane Swenson MD) Anxiety Bipolar 1 disorder COPD (chronic obstructive pulmonary disease) Depression HIV disease Hepatitis C History of MRSA infection Neuropathy PTSD (post-traumatic stress disorder) Pneumocystosis pneumonia Suicidal ideations - Surgical History Surgical History: Surgical History (Last Reviewed 08/22/18 @ 15:25 by Diane Swenson MD) No history of previous surgery - Family History Family History: Family History (Last Reviewed 08/22/18 @ 15:25 by Diane Swenson MD) Other Diabetes mellitus - Social History I have reviewed the patient's Social History: Yes - Tobacco History Second Hand Smoke Exposure: Yes Tobacco Use In Past 30 Days: Yes Smoking Status: Current every day smoker Tobacco Type: Cigarettes - Alcohol History How Often Do You Have a Drink Containing Alcohol: Never - Substance Use History Substance History: Active Abuse - Substance Use Type Marijuana Status: Active Route Used: By Mouth Reason for Use: Calm Down - Travel History Recent Travel in the [place] Within the Last 8 Weeks: No Recent Travel Out of the Country Within the Last 8 Weeks: No - Immunization History Tetanus Immunization: >5 Years Hx Influenza Vaccine This Season: No Medications and Allergies Active Medications: Active Medications Acetaminophen (Tylenol) 650 mg PO Q4H PRN PRN Reason: Temp > 100.4, SEXTON Last Admin: 08/22/18 01:23 Dose: 650 mg Hydrocodone Bitart/Acetaminophen (Morgan 5/325) 1 tab PO Q4H PRN PRN Reason: PAIN SCALE 6 TO 10 Last Admin: 08/22/18 12:23 Dose: 1 tab Al Hydroxide/Mg Hydroxide (Milk Of Magnesia Liq) 30 ml PO Q12H PRN PRN Reason: Mild Constipation Albuterol (Duoneb Neb (Prn)) 1 ampul NEB Q4HR NEB PRN PRN Reason: SOB/Wheezing Last Admin: 08/22/18 07:56 Dose: 1 ampul Bisacodyl (Dulcolax Supp) 10 mg RECTAL DAILY PRN PRN Reason: SEVERE CONSITIPATION Sodium Chloride (Ns Inj) 1,000 mls @ 125 mls/hr IV.CONT .Q8H MINOR Last Admin: 08/22/18 08:01 Dose: 125 mls/hr Vancomycin HCl 2,000 mg/ (Sodium Chloride) 520 mls @ 250 mls/hr IV.SIG Q12H MINOR Last Admin: 08/22/18 14:35 Dose: 250 mls/hr Ceftriaxone Sodium 2,000 mg/ (Sodium Chloride) 100 mls @ 200 mls/hr IV.SIG Q12H MINOR Last Infusion: 08/22/18 12:17 Dose: Infused Acyclovir Sodium 1,005 mg/ (Sodium Chloride) 170.1 mls @ 170.1 mls/hr IV.SIG Q8H MINOR Last Infusion: 08/22/18 14:37 Dose: Infused Lactulose (Lactulose Liq) 30 ml PO DAILY PRN PRN Reason: SEVERE CONSITIPATION Miscellaneous Information ([facility] Ordered Lab Info) 0 each OTHER ONCE ONE Stop: 08/23/18 01:46 Ondansetron HCl (Zofran Inj) 4 mg IV.PUSH Q6H PRN PRN Reason: NAUSEA OR VOMITING Last Admin: 08/22/18 15:07 Dose: 4 mg Pharmacy Profile Note (Vancomycin Consult Pharmacy) 1 each OTHER UNSCH PRN PRN Reason: Pharmacy to dose Senna/Docusate Sodium (Misa-Colace) 1 tab PO BID MINOR Last Admin: 08/22/18 08:01 Dose: Not Given Sennosides (Senokot) 17.2 mg PO Q12H PRN PRN Reason: Moderate Constipation Sodium Chloride (Ns Flush) 2 ml IV.FLUSH BID MINOR Sodium Chloride (Ns Flush) 2 ml IV.FLUSH PRN PRN PRN Reason: FLUSH AFTER USING IV ACCESS Allergies Allergy/AdvReac Type Severity Reaction Status Date / Time haloperidol Allergy Severe Swelling Verified 08/20/18 19:50 Home Medications Medication Instructions Recorded Confirmed Type gabapentin 600 mg PO TID 08/20/18 08/20/18 History Exam Vital signs: Vital Signs 08/21/18 16:00 08/21/18 19:49 08/22/18 00:00 Temperature 99.5 F 98.2 F 98.4 F Pulse Rate 92 H 90 78 Respiratory Rate 16 17 20 Blood Pressure 103/56 L 97/88 L 119/70 Pulse Oximetry 97 93 L 96 08/22/18 04:00 08/22/18 07:59 08/22/18 08:00 Temperature 98.8 F 97.7 F Pulse Rate 72 66 72 Respiratory Rate 20 16 17 Blood Pressure 104/51 L 106/58 L Pulse Oximetry 94 L 92 L 08/22/18 12:00 Temperature 97.8 F Pulse Rate 68 Respiratory Rate 16 Blood Pressure 109/59 L Pulse Oximetry 96 Intake & Output 08/21/18 08/22/18 08/22/18 18:59 06:59 18:59 Intake Total 3870 / 3870 1620 / 1620 1270.1 / 1270.1 Output Total 900 / 900 Balance 2970 / 2970 1620 / 1620 1270.1 / 1270.1 Intake: IV 2670 / 2670 1620 / 1620 1270.1 / 1270.1 NS Inj 1,000 ML @ 125 mls/hr IV 2000 / 2000 1000 / 1000 1000 / 1000 .CONT .Q8H MINOR Rx#:[id number] Zovirax Inj 1,005 MG In NS Inj 170.1 / 170.1 150 ML @ 170.1 mls/hr IV.SIG Q8H MINOR Rx#:[id number] Zosyn 3.375 GM Premix 50 ML @ 150 / 150 100 / 100 100 mls/hr IV.SIG Q6H MINOR Rx#: [id number] Vancomycin Inj 2,000 MG In NS 520 / 520 520 / 520 Inj 500 ML @ 250 mls/hr IV.SIG Q12H MINOR Rx#:[id number] Rocephin Inj 2,000 MG In NS Inj 100 / 100 100 ML @ 200 mls/hr IV.SIG Q12H MINOR Rx#:[id number] Oral 1200 / 1200 Output: Urine 900 / 900 Other: Date of Last Bowel Movement 08/17/18 # Bowel Movements 0 - Constitutional no acute distress, obese - Routine HEENT Exam Head: Present: normocephalic, atraumatic Eye: Present: EOMI, PERRL ENT: Present: mucous membranes moist, oropharynx clear - Routine Neck Exam Present: supple, full ROM. Absent: JVD, lymphadenopathy - Routine Respiratory Exam Present: CTA bilaterally. Absent: accessory muscle use, decreased breath sounds - Routine Cardiovascular Exam Present: RRR, S1, S2. Absent: murmur, gallop, rubs - Routine Abdominal Exam Present: soft, normoactive bowel sounds, distended, hernia (perimbilical, reducible aout 7 cm). Absent: tenderness - Routine Extremities Exam Present: edema, normal capillary refill. Absent: cyanosis, clubbing - Routine Skin Exam Present: erythema, dry, rash (diffuse macula papular rash involving BUE and torso) Comments: prominent seboreic dermatitis rash - Routine Neurological Exam Present: alert, oriented X3, CN II-XII intact, moving all extremities, hearing grossly intact, normal speech. Absent: facial asymmetry - Routine Psychiatric Exam Present: normal affect, normal thought process, cooperative Results - Labs CBC & Chem 7: 08/22/18 07:02 08/22/18 07:02 Labs: Laboratory Results - last 24 hr 08/22/18 08/22/18 07:02 07:02 WBC 2.1 L RBC 3.61 L Hgb 11.6 L Hct 32.8 L MCV 90.9 MCH 32.2 MCHC 35.4 RDW 14.2 Plt Count 60 L MPV 9.4 Prelim Diff (Auto) Manual diff required WBC Differential Manual diff final Seg Neuts % (Manual) 47 Band Neuts % (Manual) 10 H Lymphocytes % (Manual) 12 Monocytes % (Manual) 14 H Eosinophils % (Manual) 17 H Abs Neuts (Manual) 1.2 L Differential Comment . Platelet Estimate Low L Platelet Morphology Normal Ovalocytes 1+ H Sodium 143 Potassium 3.9 Chloride 112 H D Carbon Dioxide 23.4 Anion Gap 8 BUN 11 Creatinine 0.91 Estimated GFR 89 Random Glucose 87 Calcium 7.6 L D - Imaging Chest X-Ray 08/20/18 21:03 CONCLUSION: Suspected early or mild pneumonia of the left base. Face CT 08/20/18 21:03 CONCLUSION: 1. Mild facial cellulitis without perceptible abscess. 2. No acute bone destruction demonstrated. 3. Acute on chronic paranasal sinusitis. Head CT 08/20/18 21:03 CONCLUSION: No acute intracranial abnormality. . Assessment and Plan - Plan HIV/hep C coinfection HIV, advanced AIDS Pt is non compliant and essentially refusiong HIV care. I talked to him - he fully understands conserqunces of his non compliance but elects not to take his HAART Headderik, naina. W/u for similar presentation negative in April His current presntation iis probably not meningitis based on clinical findings and chronicity of complaints PNA ? ascites Rec's: cont current abx will get MR brain fu blood clx AFB bl clx CMV VL crypto VL palliative to discuss pt's goal consider to w/u for depression including consultation with psychiatry. CT chest CT abd/pelvis dw Dr Knapp
[2018-08-22] MEDS: Morphine Sulfate Inj 2 MG/ML Vial IV.PUSH PRN ×2 (18:42→22:30)
[2018-08-22] MEDS: Sodium Chloride 0.9% 2 ML Flush BID IV.FLUSH SCH (20:10)
--- NOTE | 2018-08-22 22:29 | CT ---
EXAM DATE: 08/22/2018 10:01 PM EDT AGE/SEX: 48 years / Male INDICATIONS: Abdominal pain and distention. Evaluate ascites. CLINICAL DATA: This is the patient's initial encounter. Patient reports that signs and symptoms have been present for 1 day and indicates a pain score of 6/10. MEDICAL/SURGICAL HISTORY: Hepatitis C. HIV. MRSA. Cellulitis. None. ORAL CONTRAST: No oral contrast ingested. RADIATION DOSE: 18.40 CTDI (mGy) COMPARISON: [facility] [place], CT ABDOMEN & PELVIS W CONTRAST, 05/02/2018. . TECHNIQUE: Multiple contiguous axial images were obtained through the abdomen and pelvis following b olus infusion of 100 ml Omnipaque 350 (iohexol) nonionic water-soluble contrast as a cumulative dos e for multiple exams. No oral contrast ingested. Using automated exposure control and adjustment of the mA and/or kV according to patient size, radiation dose was kept as low as reasonably achievable t o obtain optimal diagnostic quality images. DICOM format image data is available electronically for review and comparison. FINDINGS: The liver measures 23 cm craniocaudal. No focal hepatic lesion. Contracted gallbladder with a small s tone. No ductal stone or ductal dilatation. There is no ascites. Spleen measures 18.9 cm craniocaudal, slightly larger than on prior studies. No focal splenic lesion demonstrated. Pancreas and adrenal glands are within normal limits. Cysts and a few scattered nonobstructing stones are again seen of both kidneys. No obstruction or acute inflammatory changes are seen of the gastrointestinal tract. Chronic umbilical hernia containing fat only again seen. Trace atelectasis of the visualized lung bases. No acute bony abnormality. CONCLUSION: 1. Nonspecific hepatosplenomegaly, slightly worse. 2. No ascites. 3. Contracted gallbladder containing a small stone. No inflammatory changes. No duct stone or ductal dilatation. 4. Stable cysts and scattered nonobstructing stones of both kidneys. 5. Stable umbilical hernia containing fat only. Electronically signed by: Zheng Kimball MD 08/22/2018 10:28 PM EDT
--- NOTE | 2018-08-22 22:39 | CT ---
EXAM DATE: 08/22/2018 10:01 PM EDT AGE/SEX: 48 years / Male INDICATIONS: Shortness of breath, evaluate pleural effusions. CLINICAL DATA: This is the patient's initial encounter. Patient reports that signs and symptoms have been present for 1 day and indicates a pain score of 0/10. MEDICAL/SURGICAL HISTORY: Hepatitis C. HIV. MRSA. Cellulitis. None. RADIATION DOSE: 18.40 CTDI (mGy) ; Combined studies COMPARISON: No prior exams available for comparison. TECHNIQUE: Multiple contiguous axial images were obtained through the chest during bolus infusion of 100 ml Omnipaque 350 (iohexol) nonionic water-soluble contrast as a cumulative dose for multiple ex ams. Images were obtained in suspended respiration using multiple row detector helical technique. Using automated exposure control and adjustment of the mA and/or kV according to patient size, radiat ion dose was kept as low as reasonably achievable to obtain optimal diagnostic quality images. DICOM format image data is available electronically for review and comparison. FINDINGS: Trace atelectasis seen of the lung bases, mostly on the left. No acute pneumonia. No pleural effusion or pneumothorax. There is mild, benign-appearing fatty pleural thickening on the left. Heart size within normal limits. No lymphadenopathy demonstrated. There are no acute bony abnormalities are demonstrated. CONCLUSION: 1. Minimal basilar atelectasis. 2. Otherwise negative chest CT. Electronically signed by: Zheng Kimball MD 08/22/2018 10:38 PM EDT
[2018-08-23] MEDS: Sod Chloride 0.9% Inj 1,000 ML IV.CONT SCH ×3 (01:05→20:44)
[2018-08-23] MEDS ORDERED: Pharmacy Ordered Lab Info OTHER ONE (01:45)
[2018-08-23] MEDS: Vancomycin Inj 2,000 MG in Sodium Chlor 0.9% Inj 500 ML IV.SIG SCH ×2 (02:02→15:48)
[2018-08-23] MEDS: Morphine Sulfate Inj 2 MG/ML Vial IV.PUSH PRN ×5 (02:22→20:37)
[2018-08-23] MEDS: SODIUM CHLOR 0.9% IV.SIG SCH ×3 (06:29→20:38)
[2018-08-23] MEDS: ACYCLOVIR IV.SIG SCH ×3 (06:29→20:38)
[2018-08-23] MEDS: Sodium Chloride 0.9% 2 ML Flush BID IV.FLUSH SCH ×2 (08:36→20:38)
[2018-08-23] MEDS: Senna/Docusate Sodium 8.6/50 MG Tablet PO SCH ×2 (08:38→20:38)
[2018-08-23 13:08] LABS: Cryptococcus Ag Screen Negative (Negative)
--- NOTE | 2018-08-23 16:12 | P.PNIM ---
Subjective Interval history: Patient complains of a mild headache. He still has neck pain however it is improved since yesterday. Physical Exam Vital signs: Vital Signs 08/22/18 20:00 08/22/18 22:32 08/23/18 00:00 Temperature 102.7 F H 99.2 F Pulse Rate 80 79 Respiratory Rate 17 18 17 Blood Pressure 163/80 H 136/63 Pulse Oximetry 95 95 08/23/18 02:24 08/23/18 06:31 08/23/18 08:00 Temperature 98.6 F Pulse Rate 73 Respiratory Rate 17 17 19 Blood Pressure 120/65 Pulse Oximetry 93 L 08/23/18 12:00 Temperature 98.4 F Pulse Rate 71 Respiratory Rate 19 Blood Pressure 104/73 Pulse Oximetry 91 L Intake & Output 08/22/18 08/23/18 08/23/18 18:59 06:59 18:59 Intake Total 3750.1 / 3750.1 1910.1 / 1910.1 270.1 / 270.1 Output Total 1350 / 1350 1625 / 1625 Balance 2400.1 / 2400.1 285.1 / 285.1 270.1 / 270.1 Weight 103.9 kg Intake: IV 2790.1 / 2790.1 1790.1 / 1790.1 270.1 / 270.1 NS Inj 1,000 ML @ 125 mls/hr IV 2000 / 2000 1000 / 1000 .CONT .Q8H MINOR Rx#:[id number] Zovirax Inj 1,005 MG In NS Inj 170.1 / 170.1 170.1 / 170.1 170.1 / 170.1 150 ML @ 170.1 mls/hr IV.SIG Q8H MINOR Rx#:[id number] Vancomycin Inj 2,000 MG In NS 520 / 520 520 / 520 Inj 500 ML @ 250 mls/hr IV.SIG Q12H MINOR Rx#:[id number] Rocephin Inj 2,000 MG In NS Inj 100 / 100 100 / 100 100 / 100 100 ML @ 200 mls/hr IV.SIG Q12H MINOR Rx#:[id number] Oral 960 / 960 120 / 120 Output: Urine 1350 / 1350 1625 / 1625 Other: # Voids 2 # Bowel Movements 0 Narrative: General patient is complaining of a headache, he also complains of neck pain when moving his head, however says it is improved from yesterday. HEENT extraocular movements are intact. The patient combines of neck pain when he moves his neck. Cardiovascular S1-S2 audible, RRR, no murmurs rubs or gallops Respiratory left basilar crackles. Abdomen soft, nontender, nondistended, normal bowel sounds Extremities no edema 2+ distal pulses in bilateral upper and lower extremities Neuro patient is alert and oriented x3. He can move all 4 extremities sensation is intact bilaterally. The patient cerebellar signs are intact. Results - Labs CBC & Chem 7: 08/22/18 07:02 08/22/18 07:02 Laboratory Results - last 24 hr 08/20/18 08/22/18 08/22/18 21:17 13:10 13:45 Vancomycin Trough Absolute Lymphocytes 737 L % CD3 Cells 85 Absolute CD3 Count 627 L % CD3-/CD16+/CD56+ 7 Abs CD3-/CD16+/CD56+ 49 L % CD4 Cells 3 L Absolute CD4 Count 20 L T-Help/Suppress Ratio 0.10 L % CD8 Cells 81 H Absolute CD8 Count 584 % CD19 Cells 7 Absolute CD19 Count 50 L RPR Nonreactive Cryptococcus Ag Screen Negative 08/23/18 01:50 Vancomycin Trough 16.7 H Absolute Lymphocytes % CD3 Cells Absolute CD3 Count % CD3-/CD16+/CD56+ Abs CD3-/CD16+/CD56+ % CD4 Cells Absolute CD4 Count T-Help/Suppress Ratio % CD8 Cells Absolute CD8 Count % CD19 Cells Absolute CD19 Count RPR Cryptococcus Ag Screen Microbiology 08/20/18 21:17 Blood - Peripheral Aerobic Blood Culture - Preliminary No growth in 3 days 08/20/18 21:17 Blood - Peripheral Anaerobic Blood Culture - Preliminary No growth in 3 days 08/20/18 21:17 Blood - Peripheral Aerobic Blood Culture - Preliminary No growth in 3 days 08/20/18 21:17 Blood - Peripheral Anaerobic Blood Culture - Preliminary No growth in 3 days - Imaging Impressions Abdomen/Pelvis CT 08/22/18 00:00 CONCLUSION: 1. Nonspecific hepatosplenomegaly, slightly worse. 2. No ascites. 3. Contracted gallbladder containing a small stone. No inflammatory changes. No duct stone or ductal dilatation. 4. Stable cysts and scattered nonobstructing stones of both kidneys. 5. Stable umbilical hernia containing fat only. Chest CT 08/22/18 20:42 CONCLUSION: 1. Minimal basilar atelectasis. 2. Otherwise negative chest CT. Assessment and Plan - Plan This patient is a 48-year-old male with a diagnosis of HIV. The patient states he was on treatment for nearly 20 years however over the past 10 years he stopped taking the medication. He presented to our emergency department with complaints of left-sided facial swelling as well as a cough that has been ongoing for the past few days. The patient was admitted for pneumonia as well as left facial cellulitis. 1. Suspected meningitis The patient is complaining of a headache today as well as pain in his neck. The bright lights were bothering the patient's eyes yesterday however he says it is slightly improved today. He continues to spike fevers and given that the patient has a history of HIV and is not on treatment. He is refusing treatment. Psychiatry consult placed. Palliative care consult was also placed. A lumbar puncture was discussed with the patient however at this time he is refusing the lumbar puncture. MRI of the brain with contrast was attempted yesterday however the patient is now refusing it. He is alert and oriented x3 and understands the risks of not being compliant with treatment and diagnostic tests. Continue IV antibiotics for possible meningitis as well as acyclovir. Continue IV fluids. CD4 count is 20, RPR negative, crypto antigen negative. Infectious disease following. Follow-up all cultures. 2. Left facial cellulitis. Blood cultures have been ordered and are currently pending. Continue IV antibiotics. CT scan of the face was done which does not show any evidence of an abscess. The patient denies having any trauma to the left side of his face and is unclear how the patient developed cellulitis on that side of his face. Continue current management Continue current pain medication regimen. 3. Left basilar community-acquired pneumonia Imaging shows left-sided basilar pneumonia. Continue IV antibiotics. Sputum culture will be ordered. Patient does not have any complaints of shortness of breath and he is currently on room air. 3. HIV not on treatment The patient has a diagnosis of HIV. As of now the patient states he does not want to be on treatment for HIV and has no specific reason for not wanting treatment. 4. COPD Continue breathing treatments as needed. Currently the patient is on room air without any complaints of shortness of breath.
--- NOTE | 2018-08-23 16:34 | P.PNPAL ---
Consultation received from Dr. Knapp for palliative services. Record review indicated that a psychiatry consultation was pending as well as an infectious disease consultation. The patient has a long history of severe depression, drug abuse, suicide attempts and is refusing treatment and workup. Prior to palliative care exploring goals of care with the patient, it would be most beneficial to receive psychiatry evaluation of patient's capacity and need for treatment for any chronic psychiatric issues as he would be unable to make decisions until cleared by psychiatry for capacity. Palliative care appreciates the consultation and will follow up Sunday to complete full consultation and assessment, once psychiatry and infectious disease opinions are available. This was discussed with Dr. Knapp and he agrees with palliative care approach and agrees with the Sunday consultation.
[2018-08-24] MEDS: Morphine Sulfate Inj 2 MG/ML Vial IV.PUSH PRN ×5 (01:37→22:35)
[2018-08-24] MEDS: Vancomycin Inj 2,000 MG in Sodium Chlor 0.9% Inj 500 ML IV.SIG SCH ×2 (01:39→15:17)
[2018-08-24] MEDS: Sod Chloride 0.9% Inj 1,000 ML IV.CONT SCH ×3 (01:41→18:26)
[2018-08-24] MEDS: ACYCLOVIR IV.SIG SCH ×3 (06:15→20:59)
[2018-08-24] MEDS: SODIUM CHLOR 0.9% IV.SIG SCH ×3 (06:15→20:59)
[2018-08-24] MEDS: Senna/Docusate Sodium 8.6/50 MG Tablet PO SCH ×2 (09:23→20:59)
[2018-08-24] MEDS: Sodium Chloride 0.9% 2 ML Flush BID IV.FLUSH SCH ×2 (09:24→20:59)
[2018-08-24 09:58] LABS: Anion Gap 8 meq/L (5-15); Blood Urea Nitrogen 6 mg/dL (7-18); Calcium 7.9 mg/dL (8.5-10.1); Carbon Dioxide 26.9 meq/L (21.0-32.0); Chloride 108 meq/L (98-107); Glomerular Filtration Rate Greater Than 89 mL/min (>89); Glucose,Random 82 mg/dL (74-106); Magnesium 1.8 mg/dL (1.5-2.5); Potassium 3.6 meq/L (3.5-5.1); Sodium 143 meq/L (136-145)
[2018-08-24] MEDS ORDERED: Sertraline 50 MG Tablet PO ONE (12:34)
--- NOTE | 2018-08-24 12:48 | P.CONPSY ---
Provisional Diagnosis Admission Date: August 21, 2018 00:28 [place] I.: Unspecified depressive disorder, rule out adjustment disorder with depressed mood History of Present Illness Service: psychiatry Consult date: 08/24/18 Reason for Consult: Depressed Primary Care Provider: No Primary Care Physician Family Provider: No Primary Care Physician History of Present Illness: Patient is a 48-year-old man, single, no children, domiciled with sister, unemployed on Social Security benefits, with a past psychiatric history of bipolar disorder, PTSD as per patient, multiple psychiatric admissions last time being years ago, previous suicide attempt last time being 6 years ago, history of self-injurious behavior via cutting, no current outpatient mental health provider with a substance use history significant for remote IV drug abuse, with a past medical history significant for HIV, AIDS, hep C, COPD was admitted to the medical service for possible sepsis, pneumonia, facial cellulitis which patient was noted to be depressed and psychiatry was consulted for evaluation. Discussion nursing staff reported the patient has been accepting treatment and medications has not expressed any suicide ideations, and noted with stable mood. Patient was found lying hospital bed noted to be calm and cooperative. Patient states that he does not feel great as he is currently undergoing treatment for various infections and states that he has history of depression which she has been feeling depressed "all the time" but denies any worsening of depressed mood recently. Patient reports no difficulty or change with sleep, concentration but has not noted this decrease in appetite and energy and denying any suicide ideations. Patient states that he has had thoughts of not wanting to be alive but clearly states that he has no intention or thoughts of wanting to end his life. He states having outpatient follow-up at [facility] but only for medical services. Patient denies any manic or psychotic symptoms at this time. Patient mentions having had treatment for depression years ago during his last hospitalization in [place] at [facility] but does not recall the medications he took. Patient this time reports feeling "okay" denying any suicidal homicidal ideations, denies any perceptional disturbances or delusions at this time. Question of having patient engage in individual therapy was reviewed along with starting antidepressant to help improve his mood was discussed which she agreed and consented to. Patient also was amenable to referral to outpatient mental health services after discharge stating he is agreeable to engaging in individual therapy as well as outpatient mental health services. Family psychiatric history: Denies Past psychiatric history: Previous psychiatric diagnoses of bipolar disorder, PTSD as per patient, reports multiple psychiatric admissions last time being years ago, reports multiple suicide attempts last time being 6 years ago via overdose with heroin, history of cutting in the past last time being 9 months ago. Patient has no outpatient mental provider at this time, reports last seen a psychiatrist back in [place] 5 years ago. Patient does not recall previous medication trials. Substance use history: Patient reports remote history of IV drug abuse denying any recent substance use at this time. Past medical history: HIV (no treatment since seven years ago), hep C, COPD Allergies: Haldol Social history: Single, no children, domiciled sister, unemployed on Social Security benefits. Patient reports remote legal history of assault and battery charges (1993). Review of Systems All other systems reviewed negative except as stated in HPI [facility], [facility] - History History 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, Medical Record - Medical History Medical History: Medical History (Last Reviewed 08/22/18 @ 15:25 by Diane Swenson MD) Anxiety Bipolar 1 disorder COPD (chronic obstructive pulmonary disease) Depression HIV disease Hepatitis C History of MRSA infection Neuropathy PTSD (post-traumatic stress disorder) Pneumocystosis pneumonia Suicidal ideations - Surgical History Surgical History: Surgical History (Last Reviewed 08/22/18 @ 15:25 by Diane Swenson MD) No history of previous surgery - Family History Family History: Family History (Last Reviewed 08/22/18 @ 15:25 by Diane Swenson MD) Other Diabetes mellitus - Tobacco History Second Hand Smoke Exposure: Yes Tobacco Use In Past 30 Days: Yes Smoking Status: Current every day smoker Tobacco Type: Cigarettes - Alcohol History How Often Do You Have a Drink Containing Alcohol: Never - Substance Use History Substance History: Active Abuse - Substance Use Type Marijuana Status: Active Route Used: By Mouth Reason for Use: Calm Down - Travel History Recent Travel in the [place] Within the Last 8 Weeks: No Recent Travel Out of the Country Within the Last 8 Weeks: No - Immunization History Tetanus Immunization: >5 Years Hx Influenza Vaccine This Season: No Medications and Allergies Active Medications: Active Medications Acetaminophen (Tylenol) 650 mg PO Q4H PRN PRN Reason: Temp > 100.4, SEXTON Last Admin: 08/22/18 20:18 Dose: 650 mg Hydrocodone Bitart/Acetaminophen ([place] 5/325) 1 tab PO Q4H PRN PRN Reason: PAIN SCALE 6 TO 10 Last Admin: 08/22/18 17:57 Dose: 1 tab Al Hydroxide/Mg Hydroxide (Milk Of Magnesia Liq) 30 ml PO Q12H PRN PRN Reason: Mild Constipation Albuterol (Duoneb Neb (Prn)) 1 ampul NEB Q4HR NEB PRN PRN Reason: SOB/Wheezing Last Admin: 08/22/18 07:56 Dose: 1 ampul Bisacodyl (Dulcolax Supp) 10 mg RECTAL DAILY PRN PRN Reason: SEVERE CONSITIPATION Sodium Chloride (Ns Inj) 1,000 mls @ 125 mls/hr IV.CONT .Q8H [facility] Last Admin: 08/24/18 10:36 Dose: 125 mls/hr Vancomycin HCl 2,000 mg/ (Sodium Chloride) 520 mls @ 250 mls/hr IV.SIG Q12H [facility] Last Infusion: 08/24/18 06:16 Dose: Infused Ceftriaxone Sodium 2,000 mg/ (Sodium Chloride) 100 mls @ 200 mls/hr IV.SIG Q12H [facility] Last Infusion: 08/24/18 06:16 Dose: Infused Acyclovir Sodium 1,005 mg/ (Sodium Chloride) 170.1 mls @ 170.1 mls/hr IV.SIG Q8H [facility] Last Infusion: 08/24/18 07:20 Dose: Infused Lactulose (Lactulose Liq) 30 ml PO DAILY PRN PRN Reason: SEVERE CONSITIPATION Miscellaneous Information ([facility] Ordered Lab Info) 0 each OTHER ONCE ONE Stop: 08/25/18 01:46 Morphine Sulfate (Morphine Inj) 2 mg IV.PUSH Q4H PRN PRN Reason: PAIN SCALE 6 TO 10 Last Admin: 08/24/18 10:35 Dose: 2 mg Ondansetron HCl (Zofran Inj) 4 mg IV.PUSH Q6H PRN PRN Reason: NAUSEA OR VOMITING Last Admin: 08/23/18 15:52 Dose: 4 mg Pharmacy Profile Note (Vancomycin Consult Pharmacy) 1 each OTHER UNSCH PRN PRN Reason: Pharmacy to dose Senna/Docusate Sodium (Misa-Colace) 1 tab PO BID [facility] Last Admin: 08/24/18 09:23 Dose: Not Given Sennosides (Senokot) 17.2 mg PO Q12H PRN PRN Reason: Moderate Constipation Sertraline HCl (Zoloft) 25 mg PO ONCE ONE Stop: 08/24/18 12:35 Sertraline HCl (Zoloft) 50 mg PO DAILY [facility] Sodium Chloride (Ns Flush) 2 ml IV.FLUSH BID [facility]OR Last Admin: 08/24/18 09:24 Dose: Not Given Sodium Chloride (Ns Flush) 2 ml IV.FLUSH PRN PRN PRN Reason: FLUSH AFTER USING IV ACCESS Allergies Allergy/AdvReac Type Severity Reaction Status Date / Time haloperidol Allergy Severe Swelling Verified 08/20/18 19:50 Home Medications Medication Instructions Recorded Confirmed Type gabapentin 600 mg PO TID 08/20/18 08/20/18 History Exam Vital signs: Vital Signs 08/23/18 16:00 08/23/18 20:00 08/24/18 00:00 Temperature 97.7 F 98 F 97.7 F Pulse Rate 74 66 67 Respiratory Rate 17 20 20 Blood Pressure 135/85 116/69 118/67 Pulse Oximetry 95 95 92 L 08/24/18 08:00 08/24/18 12:00 Temperature 97.8 F 98.1 F Pulse Rate 73 63 Respiratory Rate 18 18 Blood Pressure 139/79 137/70 Pulse Oximetry 96 95 Intake & Output 08/23/18 08/24/18 08/24/18 18:59 06:59 18:59 Intake Total 2310.2 / 2310.2 2750.1 / 2750.1 Output Total 1000 / 1000 1500 / 1500 Balance 1310.2 / 1310.2 1250.1 / 1250.1 Weight 102.6 kg Intake: IV 1960.2 / 1960.2 1790.1 / 1790.1 / 1969. NS Inj 1,000 ML @ 125 mls/hr IV 1000 / 1000 1000 / 1000 1800 / 1800 .CONT .Q8H [facility] Rx#:[id number] Zovirax Inj 1,005 MG In NS Inj 340.2 / 340.2 170.1 / 170.1 170.1 / 170.1 150 ML @ 170.1 mls/hr IV.SIG Q8H [facility] Rx#:[id number] Vancomycin Inj 2,000 MG In NS 520 / 520 520 / 520 Inj 500 ML @ 250 mls/hr IV.SIG Q12H [facility] Rx#:[id number] Rocephin Inj 2,000 MG In NS Inj 100 / 100 100 / 100 100 ML @ 200 mls/hr IV.SIG Q12H [facility] Rx#:[id number] Oral 350 / 350 960 / 960 Output: Urine 1000 / 1000 1500 / 1500 Other: Date of Last Bowel Movement 08/17/18 # Bowel Movements 0 Narrative: Patient not noted to be in acute distress, no gross motor of maladies, no signs of tremor or EPS, no psychomotor agitation or retardation. - Constitutional no acute distress, cooperative Mental Status Examination Appearance: Appropriate Consciousness: Alert Orientation: Person, Place, Date/Time Speech: Unremarkable Language: Adequate Fund of Knowledge: Inadequate Attention and Concentration: Adequate Memory: Unremarkable Mood: Good Affect: Appropriate Thought Process & Associations: Intact, Linear Thought Content: Appropriate Hallucination Type: None Delusion Type: None Suicidal Ideation: No Suicidal Plan: No Suicidal Intention: No Homicidal Ideation: No Homicidal Plan: No Homicidal Intention: No Insight: Fair Judgment: Impulsive Assessment and Plan - Assessment (1) Depression Code(s): F32.9 - Major depressive disorder, single episode, unspecified Status : Acute - Plan Plan: Estimated LOS: [] days Patient is a 48-year-old man who carries a diagnosis of bipolar disorder, PTSD as per patient, previous remote psychiatric admissions and remote suicide attempts, currently under mental health treatment with services who is currently endorsing depressed mood along with some depressive symptoms but denying any active suicide ideation at this time. Patient noted with poor motivation and currently with depressed mood but is amenable and agreeable to starting antidepressant treatment along with be connected to individual therapy post discharge. Recommend starting sertraline 25 mg x1 and if tolerated well, 50 mg p.o. daily thereafter. Brief supportive psychotherapy provided. Patient this time does not meet criteria for inpatient psychiatric care but would benefit from referral to outpatient mental health services as well as for individual therapy for continuity of care. Consult appreciated. Justification for Continued Inpatient Stay: Patient this time continues require inpatient medical services. (1) Depression Qualifiers: Major depression recurrence: recurrent Major depression episode severity: moderate
--- NOTE | 2018-08-24 19:32 | P.PNIM ---
Subjective Interval history: Patient says that he still has a headache. His neck pain is improved. Physical Exam Vital signs: Vital Signs 08/23/18 20:00 08/24/18 00:00 08/24/18 08:00 Temperature 98 F 97.7 F 97.8 F Pulse Rate 66 67 73 Respiratory Rate 20 20 18 Blood Pressure 116/69 118/67 139/79 Pulse Oximetry 95 92 L 96 08/24/18 12:00 08/24/18 16:00 Temperature 98.1 F 98.1 F Pulse Rate 63 64 Respiratory Rate 18 16 Blood Pressure 137/70 137/83 Pulse Oximetry 95 94 L Intake & Output 08/24/18 08/24/18 08/25/18 06:59 18:59 06:59 Intake Total 2750.1 / 2750.1 5360.2 / 5360.2 Output Total 1500 / 1500 2300 / 2300 Balance 1250.1 / 1250.1 3060.2 / 3060.2 Weight 102.6 kg Intake: IV 1790.1 / 1790.1 3160.2 / 3160.2 NS Inj 1,000 ML @ 125 mls/hr IV 1000 / 1000 2200 / 2200 .CONT .Q8H [facility] Rx#:[id number] Zovirax Inj 1,005 MG In NS Inj 170.1 / 170.1 340.2 / 340.2 150 ML @ 170.1 mls/hr IV.SIG Q8H [facility] Rx#:[id number] Vancomycin Inj 2,000 MG In NS 520 / 520 520 / 520 Inj 500 ML @ 250 mls/hr IV.SIG Q12H [facility] Rx#:[id number] Rocephin Inj 2,000 MG In NS Inj 100 / 100 100 / 100 100 ML @ 200 mls/hr IV.SIG Q12H [facility] Rx#:[id number] Oral 960 / 960 2200 / 2200 Output: Urine 1500 / 1500 2300 / 2300 Other: Date of Last Bowel Movement 08/17/18 Narrative: General patient is complaining of a headache, neck pain has improved. HEENT extraocular movements are intact. The patient combines of neck pain when he moves his neck. Cardiovascular S1-S2 audible, RRR, no murmurs rubs or gallops Respiratory left basilar crackles. Abdomen soft, nontender, nondistended, normal bowel sounds Extremities no edema 2+ distal pulses in bilateral upper and lower extremities Neuro patient is alert and oriented x3. He can move all 4 extremities sensation is intact bilaterally. The patient cerebellar signs are intact. Results - Labs CBC & Chem 7: 08/22/18 07:02 08/24/18 08:12 Laboratory Results - last 24 hr 08/22/18 08/24/18 13:45 08:12 Sodium 143 Potassium 3.6 Chloride 108 H Carbon Dioxide 26.9 Anion Gap 8 BUN 6 L Creatinine 0.68 Estimated GFR Greater than 89 Random Glucose 82 Calcium 7.9 L Magnesium 1.8 Absolute Lymphocytes 583 L % CD3 Cells 80 Absolute CD3 Count 464 L % CD3-/CD16+/CD56+ 9 Abs CD3-/CD16+/CD56+ 54 L % CD4 Cells 3 L Absolute CD4 Count Less than 20 L T-Help/Suppress Ratio 0.10 L % CD8 Cells 75 H Absolute CD8 Count 440 % CD19 Cells 10 Absolute CD19 Count 58 L Microbiology 08/20/18 21:17 Blood - Peripheral Aerobic Blood Culture - Preliminary No growth in 4 days 08/20/18 21:17 Blood - Peripheral Anaerobic Blood Culture - Preliminary No growth in 4 days 08/20/18 21:17 Blood - Peripheral Aerobic Blood Culture - Preliminary No growth in 4 days 08/20/18 21:17 Blood - Peripheral Anaerobic Blood Culture - Preliminary No growth in 4 days Assessment and Plan - Plan This patient is a 48-year-old male with a diagnosis of HIV. The patient states he was on treatment for nearly 20 years however over the past 10 years he stopped taking the medication. He presented to our emergency department with complaints of left-sided facial swelling as well as a cough that has been ongoing for the past few days. The patient was admitted for pneumonia as well as left facial cellulitis. 1. Suspected meningitis The patient is complaining of a headache today and states that his neck pain has improved. He still prefers a dark room but says the bright lights are not bothering him as much anymore. He has been afebrile for 24 hours. A lumbar puncture was discussed with the patient however at this time he is refusing the lumbar puncture. Patient also refused MRI of the brain. He is alert and oriented x3 and understands the risks of not being compliant with treatment and diagnostic tests. Continue IV antibiotics for possible meningitis as well as acyclovir. Continue IV fluids. CD4 count is 20, RPR negative, crypto antigen negative. Patient refusing treatment for HIV. Infectious disease following. I will follow up with infectious disease for recommendations. Follow-up all cultures. 2. Left facial cellulitis. Left facial cellulitis has improved since admission. Blood cultures have been ordered and are currently negative. Continue IV antibiotics. CT scan of the face was done which does not show any evidence of an abscess. The patient denies having any trauma to the left side of his face and is unclear how the patient developed cellulitis on that side of his face. Continue current management Continue current pain medication regimen. 3. Left basilar community-acquired pneumonia Imaging shows left-sided basilar pneumonia. Continue IV antibiotics. Sputum culture will be ordered. Patient does not have any complaints of shortness of breath and he is currently on room air. 3. HIV not on treatment The patient has a diagnosis of HIV. As of now the patient states he does not want to be on treatment for HIV and has no specific reason for not wanting treatment. 4. COPD Continue breathing treatments as needed. Currently the patient is on room air without any complaints of shortness of breath. 5. Depression Patient started on sertraline as per psychiatry recommendations for depression. I appreciate the evaluation and recommendations from psychiatry. Patient has been laying in bed for the past few days and does not seem to move around much. I will get PT to evaluate him.
[2018-08-24] MEDS ORDERED: Magnesium Sulfate Inj 2 GM in Sodium Chlor 0.9% Inj 96 ML IV.SIG ONE (19:39)
[2018-08-25] MEDS ORDERED: Pharmacy Ordered Lab Info OTHER ONE (01:45)
[2018-08-25] MEDS: Vancomycin Inj 2,000 MG in Sodium Chlor 0.9% Inj 500 ML IV.SIG SCH ×2 (01:58→14:24)
[2018-08-25] MEDS: Sod Chloride 0.9% Inj 1,000 ML IV.CONT SCH ×3 (01:59→20:28)
[2018-08-25] MEDS: SODIUM CHLOR 0.9% IV.SIG SCH ×3 (05:32→20:27)
[2018-08-25] MEDS: ACYCLOVIR IV.SIG SCH ×3 (05:32→20:27)
[2018-08-25] MEDS: Senna/Docusate Sodium 8.6/50 MG Tablet PO SCH ×2 (08:19→20:27)
[2018-08-25] MEDS: Sodium Chloride 0.9% 2 ML Flush BID IV.FLUSH SCH ×2 (08:19→20:27)
[2018-08-25] MEDS: Sertraline 50 MG Tablet PO SCH (08:19)
[2018-08-25] MEDS: Morphine Sulfate Inj 2 MG/ML Vial IV.PUSH PRN ×2 (13:14→20:30)
--- NOTE | 2018-08-25 19:45 | P.PNIM ---
Subjective Interval history: Patient says that his cough has improved. He still has a slight headache and his neck pain is improved. Physical Exam Vital signs: Vital Signs 08/24/18 20:00 08/25/18 00:00 08/25/18 12:00 Temperature 99 F 97.4 F L 97.9 F Pulse Rate 65 62 52 L Respiratory Rate 20 18 14 Blood Pressure 150/76 H 138/76 153/88 H Pulse Oximetry 96 94 L 96 08/25/18 16:00 Temperature 97.9 F Pulse Rate 57 L Respiratory Rate 16 Blood Pressure 126/68 Pulse Oximetry 96 Intake & Output 08/25/18 08/25/18 08/26/18 06:59 18:59 06:59 Intake Total 1660.2 / 1660.2 4240.1 / 4240.1 Output Total 1775 / 1775 1600 / 1600 Balance -114.8 / -114.8 2640.1 / 2640.1 Weight 103.9 kg Intake: IV 1660.2 / 1660.2 2440.1 / 2440.1 NS Inj 1,000 ML @ 125 mls/hr IV 600 / 600 1650 / 1650 .CONT .Q8H [facility] Rx#:[id number] Zovirax Inj 1,005 MG In NS Inj 340.2 / 340.2 170.1 / 170.1 150 ML @ 170.1 mls/hr IV.SIG Q8H [facility] Rx#:[id number] Magnesium Sulfate Inj 2 GM In 100 / 100 NS Inj 96 ML @ 50 mls/hr IV.SIG ONCE ONE Rx#:[id number] Vancomycin Inj 2,000 MG In NS 520 / 520 520 / 520 Inj 500 ML @ 250 mls/hr IV.SIG Q12H [facility] Rx#:[id number] Rocephin Inj 2,000 MG In NS Inj 100 / 100 100 / 100 100 ML @ 200 mls/hr IV.SIG Q12H [facility] Rx#:[id number] Oral 1800 / 1800 Output: Urine 1775 / 1775 1600 / 1600 Other: Date of Last Bowel Movement 08/17/18 Narrative: General patient is complaining of a mild headache, neck pain has improved. HEENT extraocular movements are intact. The patient combines of neck pain when he moves his neck. Cardiovascular S1-S2 audible, RRR, no murmurs rubs or gallops Respiratory left basilar crackles. Abdomen soft, nontender, nondistended, normal bowel sounds Extremities no edema 2+ distal pulses in bilateral upper and lower extremities neuro the patient does not have any neurological deficits. He can move all 4 extremities sensation is intact bilaterally. The patient is appropriate. Results - Labs CBC & Chem 7: 08/22/18 07:02 08/24/18 08:12 Laboratory Results - last 24 hr 08/25/18 01:30 Vancomycin Trough 19.3 H Microbiology 08/20/18 21:17 Blood - Peripheral Aerobic Blood Culture - Final No growth in 5 days 08/20/18 21:17 Blood - Peripheral Anaerobic Blood Culture - Final No growth in 5 days 08/20/18 21:17 Blood - Peripheral Aerobic Blood Culture - Final No growth in 5 days 08/20/18 21:17 Blood - Peripheral Anaerobic Blood Culture - Final No growth in 5 days Assessment and Plan - Plan This patient is a 48-year-old male with a diagnosis of HIV. The patient states he was on treatment for nearly 20 years however over the past 10 years he stopped taking the medication. He presented to our emergency department with complaints of left-sided facial swelling as well as a cough that has been ongoing for the past few days. The patient was admitted for pneumonia as well as left facial cellulitis. 1. Suspected meningitis The patient's headache and neck pain have improved. He was refusing MRI brain and lumbar puncture. He has been afebrile for 48 hours. He is alert and oriented x3 and understands the risks of not being compliant with treatment and diagnostic tests. Continue IV antibiotics for possible meningitis as well as acyclovir. Continue IV fluids. CD4 count is 20, RPR negative, crypto antigen negative. He does not want to be started on treatment for HIV. Infectious disease following. I will follow up with infectious disease for recommendations. Follow-up all cultures. Discuss case with infectious disease tomorrow for possible discharge. 2. Left facial cellulitis. Left facial cellulitis has improved since admission. Blood cultures are negative. CT scan of the face did not show an abscess. Patient is on antibiotics. 3. Left basilar community-acquired pneumonia Imaging shows left-sided basilar pneumonia. On IV antibiotics Sputum culture will be ordered. Patient's cough has improved and he is currently on room air. 3. HIV not on treatment The patient has a diagnosis of HIV. As of now the patient states he does not want to be on treatment for HIV and has no specific reason for not wanting treatment. 4. COPD Continue breathing treatments as needed. Currently the patient is on room air without any complaints of shortness of breath. 5. Depression Patient started on sertraline as per psychiatry recommendations for depression. I appreciate the evaluation and recommendations from psychiatry. Patient has been laying in bed for the past few days and does not seem to move around much. I will get PT to evaluate him.
[2018-08-26] MEDS: Vancomycin Inj 2,000 MG in Sodium Chlor 0.9% Inj 500 ML IV.SIG SCH ×2 (02:01→13:52)
[2018-08-26] MEDS: ACYCLOVIR IV.SIG SCH ×3 (04:23→22:03)
[2018-08-26] MEDS: Sod Chloride 0.9% Inj 1,000 ML IV.CONT SCH ×3 (04:23→16:19)
[2018-08-26] MEDS: SODIUM CHLOR 0.9% IV.SIG SCH ×3 (04:23→22:03)
[2018-08-26] MEDS: Sertraline 50 MG Tablet PO SCH (08:48)
[2018-08-26] MEDS: Sodium Chloride 0.9% 2 ML Flush BID IV.FLUSH SCH ×2 (08:49→22:04)
[2018-08-26] MEDS: Senna/Docusate Sodium 8.6/50 MG Tablet PO SCH ×2 (08:49→22:04)
[2018-08-26] MEDS: Morphine Sulfate Inj 2 MG/ML Vial IV.PUSH PRN ×4 (08:51→22:04)
--- NOTE | 2018-08-26 09:46 | P.PN ---
Subjective Interval history: This is a pleasant 48 6y/o Male with HIV, Non compliant with medicines, who came to ER with left-sided facial swelling as well as a cough that has been ongoing for the past few days. The patient was admitted for pneumonia as well as left facial cellulitis. discussed with Doctor Swenson ID specialist, because the patient refused management No HAART, refused LP and MRI, CMV RPR negative, as per Psychiatry Major depressive disorder on SSRI, I told Doctor Swenson the Patient accepted MRI of the Brain, following recommendations after test performed. 08/26: Seen in his bedroom discussed with Doctor Swenson the patient accepted to get the MRI we are waiting fo results. no nausea, vomit or diarrhea, wants to go home. Physical Exam Vital signs: Vital Signs 08/25/18 12:00 08/25/18 16:00 08/25/18 20:00 Temperature 97.9 F 97.9 F 98.6 F Pulse Rate 52 L 57 L 54 L Respiratory Rate 14 16 16 Blood Pressure 153/88 H 126/68 134/69 Pulse Oximetry 96 96 96 08/26/18 00:00 08/26/18 08:00 Temperature 98.7 F 97.4 F L Pulse Rate 58 L 52 L Respiratory Rate 16 18 Blood Pressure 149/85 H 133/71 Pulse Oximetry 97 97 Intake & Output 08/25/18 08/26/18 08/26/18 18:59 06:59 18:59 Intake Total 4240.1 / 4240.1 1960.2 / 1960.2 1000 / 1000 Output Total 1600 / 1600 3300 / 3300 700 / 700 Balance 2640.1 / 2640.1 -1339.8 / -1339.8 300 / 300 Weight 102.2 kg Intake: IV 2440.1 / 2440.1 1960.2 / 1960.2 1000 / 1000 NS Inj 1,000 ML @ 125 mls/hr IV 1650 / 1650 1000 / 1000 1000 / 1000 .CONT .Q8H [facility] Rx#:[id number] Zovirax Inj 1,005 MG In NS Inj 170.1 / 170.1 340.2 / 340.2 150 ML @ 170.1 mls/hr IV.SIG Q8H [facility] Rx#:[id number] Vancomycin Inj 2,000 MG In NS 520 / 520 520 / 520 Inj 500 ML @ 250 mls/hr IV.SIG Q12H [facility] Rx#:[id number] Rocephin Inj 2,000 MG In NS Inj 100 / 100 100 / 100 100 ML @ 200 mls/hr IV.SIG Q12H [facility] Rx#:[id number] Oral 1800 / 1800 Output: Urine 1600 / 1600 3300 / 3300 700 / 700 Other: Date of Last Bowel Movement 08/17/18 08/25/18 Narrative: GENERAL: This is a well-nourished, well-developed patient, in no apparent distress. CARDIOVASCULAR: Regular rate and rhythm without murmurs, gallops, or rubs. RESPIRATORY: Clear to auscultation. Breath sounds equal bilaterally. No wheezes , rales, or rhonchi. GASTROINTESTINAL: Abdomen soft, non-tender, nondistended. Normal active bowel sounds MUSCULOSKELETAL: Extremities without clubbing, cyanosis, or edema. NEURO: Alert & Oriented x4 to person, place, time, situation. Moves all ext x4 Results - Labs CBC & Chem 7: 08/22/18 07:02 08/27/18 13:34 Microbiology 08/25/18 18:54 Sputum - Expectorated Sputum Gram Stain - Final 08/20/18 21:17 Blood - Peripheral Aerobic Blood Culture - Final No growth in 5 days 08/20/18 21:17 Blood - Peripheral Anaerobic Blood Culture - Final No growth in 5 days 08/20/18 21:17 Blood - Peripheral Aerobic Blood Culture - Final No growth in 5 days 08/20/18 21:17 Blood - Peripheral Anaerobic Blood Culture - Final No growth in 5 days - Imaging Chest X-Ray 08/20/18 21:03 CONCLUSION: Suspected early or mild pneumonia of the left base. Face CT 08/20/18 21:03 CONCLUSION: 1. Mild facial cellulitis without perceptible abscess. 2. No acute bone destruction demonstrated. 3. Acute on chronic paranasal sinusitis. Head CT 08/20/18 21:03 CONCLUSION: No acute intracranial abnormality. CT Abd/Pelvis CONCLUSION: 1. Nonspecific hepatosplenomegaly, slightly worse. 2. No ascites. 3. Contracted gallbladder containing a small stone. No inflammatory changes. No duct stone or ductal dilatation. 4. Stable cysts and scattered nonobstructing stones of both kidneys. 5. Stable umbilical hernia containing fat only. Electronically signed by: Zheng Kimball MD 08/22/2018 10:[address] Chest CONCLUSION: 1. Minimal basilar atelectasis. 2. Otherwise negative chest CT. Electronically signed by: Zheng Kimball MD 08/22/2018 10:38 PM EDT Assessment and Plan - Plan This patient is a 48-year-old male with a diagnosis of HIV. The patient states he was on treatment for nearly 20 years however over the past 10 years he stopped taking the medication. He presented to our emergency department with complaints of left-sided facial swelling as well as a cough that has been ongoing for the past few days. The patient was admitted for pneumonia as well as left facial cellulitis. 1. Suspected meningitis ID specialist following, initially refused MRI brain and Lumbar puncture, continue IV antibiotics Acyclovir, IV fluids, CD4 count is 20, RPR negative, crypto antigen negative, He refused treatment for HIV, HIV/Hepatitis C coinfection, Advanced AIDS, probably not meningitis as per ID specialist, continue management for PNA Following blood cultures, AFB blood culture, CMV, Crypto, Considered for Psychiatry evaluation performed. he has Depression and recommended Zoloft 50 mg daily. awaiting for MRI brain to be performed now. 2. Left facial cellulitis. Left facial cellulitis has improved since admission. Blood cultures are negative. CT scan of the face did not show an abscess. Patient is on antibiotics. ID following. 3. Left basilar community-acquired pneumonia Imaging shows left-sided basilar pneumonia. On IV antibiotics Sputum culture negative. 3. HIV not on treatment The patient has a diagnosis of HIV. As of now the patient states he does not want to be on treatment for HIV and has no specific reason for not wanting treatment. 4. COPD Continue breathing treatments as needed. Currently the patient is on room air without any complaints of shortness of breath. 5. Depression Patient started on sertraline as per psychiatry recommendations for depression. I appreciate the evaluation and recommendations from psychiatry. Patient has been laying in bed for the past few days and does not seem to move around much. I will get PT to evaluate him. Code Status: DNR. Discussed Condition With: patient, nurse and ID specialist doctor Messi. Discharge Planning: Expected by tomorrow.
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
--- NOTE | 2018-08-26 17:47 | P.PNADD ---
Addendum to Inpatient Note Additional information: CMV RPR negative Refused LP, MRI Pt does not take HAART or profilaxis He essentially does not want to be treated Psych diagnosed pt with Major depressio and started SSRI Tx of depression might result in pt's compliance w/u limited 2/2 pt's lack of cooperation Hospice recommended by palliative call placed to Dr Maldonado
--- NOTE | 2018-08-26 19:24 | MR ---
EXAM DATE: 08/26/2018 6:25 PM EDT AGE/SEX: 48 years / Male INDICATIONS: Cephalgia. CLINICAL DATA: This is the patient's initial encounter. Patient reports that signs and symptoms have been present for 4 - 6 days and indicates a pain score of 5/10. MEDICAL/SURGICAL HISTORY: HIV. Hepatitis C. Chronic obstructive pulmonary disease. None. [place] [facility] [place]/2018. . TECHNIQUE: Multiplanar, multisequence examination of the brain was performed without and with 10 ml G adavist (gadobutrol) contrast as a single exam dose. FINDINGS: There is mild motion degradation to the images despite using rapid acquisition pulse se quences. Cerebrum: The ventricles are normal for age. No evidence of midline shift, mass lesion, hemorrhage or acute infarction. No extraaxial fluid collections are seen. The pituitary gland and suprasellar cistern are normal in configuration. White Matter: No significant signal abnormalities are seen in the white matter. Posterior Fossa: The cerebellum and brainstem are intact. The 4th ventricle is midline. The cerebel lopontine angle is unremarkable. The cerebellar tonsils are normal in position. Diffusion Imaging: No focal areas of restricted diffusion are seen. No evidence of acute infarction . Extracranial: The visualized portions of the orbits are unremarkable. Mucosal thickening in the sphe noid and maxillary sinuses. Post Contrast: No abnormal areas of parenchymal or dural enhancement. No evidence of blood-brain ba rrier breakdown. CONCLUSION: 1. No acute findings brain. 2. Maxillary and sphenoid sinus disease. Electronically signed by: Burt Lucio MD 08/26/2018 7:23 PM EDT
[2018-08-26] MEDS ORDERED: Gadobutrol PF 10 MMOL/10 ML Vial (for RAD) IV.SIG ONE (19:41)
[2018-08-27] MEDS: Sod Chloride 0.9% Inj 1,000 ML IV.CONT SCH ×3 (00:35→18:27)
[2018-08-27] MEDS ORDERED: Pharmacy Ordered Lab Info OTHER ONE ×2 (01:45→13:45)
[2018-08-27] MEDS: Vancomycin Inj 2,000 MG in Sodium Chlor 0.9% Inj 500 ML IV.SIG SCH ×2 (02:10→14:37)
[2018-08-27] MEDS: Morphine Sulfate Inj 2 MG/ML Vial IV.PUSH PRN ×4 (02:15→14:35)
[2018-08-27] MEDS: SODIUM CHLOR 0.9% IV.SIG SCH ×2 (05:19→13:24)
[2018-08-27] MEDS: ACYCLOVIR IV.SIG SCH ×2 (05:19→13:24)
[2018-08-27] MEDS: Sodium Chloride 0.9% 2 ML Flush BID IV.FLUSH SCH (09:17)
[2018-08-27] MEDS: Sertraline 50 MG Tablet PO SCH (09:21)
[2018-08-27] MEDS: Senna/Docusate Sodium 8.6/50 MG Tablet PO SCH (09:21)
[2018-08-27 09:29] VITALS: RESP 18
[2018-08-27 14:27] LABS: Glomerular Filtration Rate Greater Than 89 mL/min (>89)
--- NOTE | 2018-08-27 16:34 | P.PN ---
Subjective Interval history: This is a pleasant [age]y/o Male with HIV, Non compliant with medicines, who came to ER with left-sided facial swelling as well as a cough that has been ongoing for the past few days. The patient was admitted for pneumonia as well as left facial cellulitis. discussed with Doctor Swenson ID specialist, because the patient refused management No HAART, refused LP and MRI, CMV RPR negative, as per Psychiatry Major depressive disorder on SSRI, I told Doctor Swenson the Patient accepted MRI of the Brain, following recommendations after test performed. 08/26: Seen in his bedroom discussed with Doctor Swenson the patient accepted to get the MRI we are waiting fo results. no nausea, vomit or diarrhea, wants to go home. 08/27: discussed with ID specialist doctor Diane Swenson, the patient is non compliant with management, refusing HIV care, Negative MRI brain, his current presentation is probably non meningitis, Pneumonia, no ascites, CMV negative, Crypto negative, he will need Bactrim DS daily for PCP prophylaxis, and Azithromycin 1200 mg weekly for MACY prophylaxis, changed antibiotics, to Augmentin 500 mg by mouth TID for seven more days for sinusitis , okay to discharge from ID specialist standpoint Physical Exam Vital signs: Vital Signs 08/26/18 20:00 08/26/18 22:32 08/27/18 00:00 Temperature 97.2 F L 98.5 F Pulse Rate 66 68 Respiratory Rate 18 19 18 Blood Pressure 145/88 H 137/84 Pulse Oximetry 95 94 L 08/27/18 02:20 08/27/18 08:00 08/27/18 12:00 Temperature 97.7 F 98 F Pulse Rate 63 60 Respiratory Rate 20 18 18 Blood Pressure 114/70 174/89 H Pulse Oximetry 91 L 98 Intake & Output 08/26/18 08/27/18 08/27/18 18:59 06:59 18:59 Intake Total 2890.1 / 2890.1 1880.2 / 1880.2 270.1 / 270.1 Output Total 1425 / 1425 500 / 500 Balance 1465.1 / 1465.1 1380.2 / 1380.2 270.1 / 270.1 Weight 100.9 kg Intake: IV 2290.1 / 2290.1 1460.2 / 1460.2 270.1 / 270.1 NS Inj 1,000 ML @ 125 mls/hr IV 1500 / 1500 500 / 500 .CONT .Q8H [facility] Rx#:[id number] Zovirax Inj 1,005 MG In NS Inj 170.1 / 170.1 340.2 / 340.2 170.1 / 170.1 150 ML @ 170.1 mls/hr IV.SIG Q8H [facility]OR Rx#:[id number] Vancomycin Inj 2,000 MG In NS 520 / 520 520 / 520 Inj 500 ML @ 250 mls/hr IV.SIG Q12H [facility]OR Rx#:[id number] Rocephin Inj 2,000 MG In NS Inj 100 / 100 100 / 100 100 / 100 100 ML @ 200 mls/hr IV.SIG Q12H [facility]OR Rx#:[id number] Oral 600 / 600 420 / 420 Output: Urine 1425 / 1425 500 / 500 Other: Date of Last Bowel Movement 08/25/18 Narrative: GENERAL: This is a well-nourished, well-developed patient, in no apparent distress. CARDIOVASCULAR: Regular rate and rhythm without murmurs, gallops, or rubs. RESPIRATORY: Clear to auscultation. Breath sounds equal bilaterally. No wheezes , rales, or rhonchi. GASTROINTESTINAL: Abdomen soft, non-tender, nondistended. Normal active bowel sounds MUSCULOSKELETAL: Extremities without clubbing, cyanosis, or edema. NEURO: Alert & Oriented x4 to person, place, time, situation. Moves all ext x4 Results - Labs CBC & Chem 7: 08/22/18 07:02 08/27/18 13:34 Laboratory Results - last 24 hr 08/27/18 08/27/18 13:34 13:34 Creatinine 0.73 Estimated GFR Greater than 89 Vancomycin Trough 23.4 H Microbiology 08/25/18 18:54 Sputum - Expectorated Sputum Gram Stain - Final 08/25/18 18:54 Sputum - Expectorated Sputum Sputum Culture - Final Heavy growth normal respiratory liane - Imaging Impressions Head MRI 08/26/18 00:00 CONCLUSION: 1. No acute findings brain. 2. Maxillary and sphenoid sinus disease. Assessment and Plan - Plan This patient is a 48-year-old male with a diagnosis of HIV. The patient states he was on treatment for nearly 20 years however over the past 10 years he stopped taking the medication. He presented to our emergency department with complaints of left-sided facial swelling as well as a cough that has been ongoing for the past few days. The patient was admitted for pneumonia as well as left facial cellulitis. 1. Suspected meningitis ID specialist following, initially refused MRI brain and Lumbar puncture, continue IV antibiotics Acyclovir, IV fluids, CD4 count is 20, RPR negative, crypto antigen negative, He refused treatment for HIV, HIV/Hepatitis C coinfection, Advanced AIDS, probably not meningitis as per ID specialist, continue management for PNA Following blood cultures, AFB blood culture, CMV, Crypto, Considered for Psychiatry evaluation performed. he has Depression and recommended Zoloft 50 mg daily. awaiting for MRI brain to be performed now. was negative. 08/27: discussed with ID specialist doctor Diane Swenson, the patient is non compliant with management, refusing HIV care, Negative MRI brain, his current presentation is probably non meningitis, Pneumonia, no ascites, CMV negative, Crypto negative, he will need Bactrim DS daily for PCP prophylaxis, and Azithromycin 1200 mg weekly for MACY prophylaxis, changed antibiotics, to Augmentin 500 mg by mouth TID for seven more days for sinusitis, okay to discharge from ID specialist standpoint 2. Left facial cellulitis. Left facial cellulitis has improved since admission. Blood cultures are negative. CT scan of the face did not show an abscess. Patient is on antibiotics. ID following. 3. Left basilar community-acquired pneumonia Imaging shows left-sided basilar pneumonia. On IV antibiotics Sputum culture negative. 3. HIV not on treatment The patient has a diagnosis of HIV. As of now the patient states he does not want to be on treatment for HIV and has no specific reason for not wanting treatment. 4. COPD Continue breathing treatments as needed. Currently the patient is on room air without any complaints of shortness of breath. 5. Depression Patient started on sertraline as per psychiatry recommendations for depression. I appreciate the evaluation and recommendations from psychiatry. Patient has been laying in bed for the past few days and does not seem to move around much. I will get PT to evaluate him. Code Status: DNR Discussed Condition With: Patient, nurse and ID Specialist doctor Diane Swenson Discharge Planning: Discharge Home now.
[2018-08-27 16:48] VITALS: BP 147/84; PULSE 62; TEMP 98.7; O2SAT 94
--- NOTE | 2018-08-27 17:03 | P.PNID ---
Subjective Remarks: pt is adamantly refusing to establish HIV provider and/or take any HIV meds He understands he has a very poor prognosis w/o HAART treatment he feels better no fever MR head showed sinusitis, no cerebral lesions BC negative - final AFB clx P sputum NRF Antibiotics: vanco CFTX Allergies/Adverse Reactions: Allergies haloperidol Allergy (Severe, Verified 08/20/18 19:50) Swelling TONGUE SWELLING - Per pt. Objective Vital Signs 08/26/18 20:00 08/26/18 22:32 08/27/18 00:00 Temperature 97.2 F L 98.5 F Pulse Rate 66 68 Respiratory Rate 18 19 18 Blood Pressure 145/88 H 137/84 Pulse Oximetry 95 94 L 08/27/18 02:20 08/27/18 08:00 08/27/18 12:00 Temperature 97.7 F 98 F Pulse Rate 63 60 Respiratory Rate 20 18 18 Blood Pressure 114/70 174/89 H Pulse Oximetry 91 L 98 08/27/18 16:00 Temperature 98.7 F Pulse Rate 62 Respiratory Rate 18 Blood Pressure 147/84 H Pulse Oximetry 94 L Intake & Output 08/26/18 08/27/18 08/27/18 18:59 06:59 18:59 Intake Total 2890.1 / 2890.1 1880.2 / 1880.2 270.1 / 270.1 Output Total 1425 / 1425 500 / 500 Balance 1465.1 / 1465.1 1380.2 / 1380.2 270.1 / 270.1 Weight 100.9 kg Intake: IV 2290.1 / 2290.1 1460.2 / 1460.2 270.1 / 270.1 NS Inj 1,000 ML @ 125 mls/hr IV 1500 / 1500 500 / 500 .CONT .Q8H [facility] Rx#:[id number] Zovirax Inj 1,005 MG In NS Inj 170.1 / 170.1 340.2 / 340.2 170.1 / 170.1 150 ML @ 170.1 mls/hr IV.SIG Q8H [facility]OR Rx#:[id number] Vancomycin Inj 2,000 MG In NS 520 / 520 520 / 520 Inj 500 ML @ 250 mls/hr IV.SIG Q12H [facility] Rx#:[id number] Rocephin Inj 2,000 MG In NS Inj 100 / 100 100 / 100 100 / 100 100 ML @ 200 mls/hr IV.SIG Q12H [facility] Rx#:[id number] Oral 600 / 600 420 / 420 Output: Urine 1425 / 1425 500 / 500 Other: Date of Last Bowel Movement 08/25/18 08/25/18 18:54 Sputum - Expectorated Sputum Gram Stain - Final 08/25/18 18:54 Sputum - Expectorated Sputum Sputum Culture - Final Heavy growth normal respiratory liane 08/20/18 21:17 Blood - Peripheral Aerobic Blood Culture - Final No growth in 5 days 08/20/18 21:17 Blood - Peripheral Anaerobic Blood Culture - Final No growth in 5 days 08/20/18 21:17 Blood - Peripheral Aerobic Blood Culture - Final No growth in 5 days 08/20/18 21:17 Blood - Peripheral Anaerobic Blood Culture - Final No growth in 5 days Lab - Chemistry Results 08/27/18 13:34 Creatinine 0.73 Estimated GFR Greater than 89 Imaging: ITS Impressions Chest X-Ray 08/20/18 21:03 CONCLUSION: Suspected early or mild pneumonia of the left base. Face CT 08/20/18 21:03 CONCLUSION: 1. Mild facial cellulitis without perceptible abscess. 2. No acute bone destruction demonstrated. 3. Acute on chronic paranasal sinusitis. Head CT 08/20/18 21:03 CONCLUSION: No acute intracranial abnormality. . Abdomen/Pelvis CT 08/22/18 00:00 CONCLUSION: 1. Nonspecific hepatosplenomegaly, slightly worse. 2. No ascites. 3. Contracted gallbladder containing a small stone. No inflammatory changes. No duct stone or ductal dilatation. 4. Stable cysts and scattered nonobstructing stones of both kidneys. 5. Stable umbilical hernia containing fat only. Chest CT 08/22/18 20:42 CONCLUSION: 1. Minimal basilar atelectasis. 2. Otherwise negative chest CT. Head MRI 08/26/18 00:00 CONCLUSION: 1. No acute findings brain. 2. Maxillary and sphenoid sinus disease. Physical Exam: GENERAL: NAD. No rash SKIN: Warm and dry. seroreic dermitis rash improved EYES: Pupils equal and round. No scleral icterus. No injection or drainage. ENT: No nasal bleeding or discharge. Mucous membranes pink and moist. CARDIOVASCULAR: Regular rate and rhythm. RESPIRATORY: No accessory muscle use. Clear to auscultation. Breath sounds equal bilaterally. GASTROINTESTINAL: Abdomen soft, non-tender, distended. Hepatic and splenic margins not palpable. MUSCULOSKELETAL: Extremities without clubbing, cyanosis, or edema. No obvious deformities. NEUROLOGICAL: Awake and alert. No obvious cranial nerve deficits. Motor grossly within normal limits. Normal speech. PSYCHIATRIC: looks depressed Assessment and Plan - Plan HIV/hep C coinfection HIV, advanced AIDS CD4 < 20 Pt is non compliant and essentially refusiong HIV care. I talked to him - he fully understands conserqunces of his non compliance but elects not to take his HAART naina Grissom. W/u for similar presentation negative in April His current presntation iis probably not meningitis based on clinical findings and chronicity of complaints PNA No ascites CMV VL neg crypto VL neg MR NEG major depression Rec's: Pt needs Bactrim DS daily for PCP profilaxis and azithromycin 1200 weekly for MACY profilaxis but he is probbably not going take it change abx to AUgmentin 500 mg PO tid x 7 more days for sinusitis OK to dc from ID standpoint dw Dr Mckeon
--- NOTE | 2018-08-27 18:31 | P.DS ---
Date of admission: 08/21/18 00:28 Primary care physician: No Primary Care Physician Attending physician on discharge: Kurt Maldonado Anticipated date of discharge: 08/27/18 Brief History from admission: 48-year-old male with past medical history significant for HIV (not on antiretroviral medications), hepatitis C and COPD presents to the emergency department for the evaluation of the left sided facial cellulitis. The patient reports that his face started becoming erythematous and swollen yesterday. He reports it is now painful. He endorses associated fever/chills. The patient has had a cough with accompanying shortness of breath times 2 weeks. He complains of a headache. Denies chest pain. No abdominal pain. No nausea/ vomiting/diarrhea. No lateralizing signs/symptoms. The patient states he does not wish to take any antiretroviral medications and that he understands the consequences. DS: Diagnosis - Discharge Diagnosis (1) Cellulitis Status: Acute (2) Fever Status: Acute (3) HIV (human immunodeficiency virus infection) Status: Acute (4) COPD (chronic obstructive pulmonary disease) Status: Acute (5) Nausea Status: Acute (6) Pneumonia Status: Acute DS: Summary Hospital Course: This is a pleasant [age]y/o Male with HIV, Non compliant with medicines, who came to ER with left-sided facial swelling as well as a cough that has been ongoing for the past few days. The patient was admitted for pneumonia as well as left facial cellulitis. discussed with Doctor Swenson ID specialist, because the patient refused management No HAART, refused LP and MRI, CMV RPR negative, as per Psychiatry Major depressive disorder on SSRI, I told Doctor Swenson the Patient accepted MRI of the Brain, following recommendations after test performed. 08/26: Seen in his bedroom discussed with Doctor Swenson the patient accepted to get the MRI we are waiting fo results. no nausea, vomit or diarrhea, wants to go home. 08/27: discussed with ID specialist doctor Diane Swenson, the patient is non compliant with management, refusing HIV care, Negative MRI brain, his current presentation is probably non meningitis, Pneumonia, no ascites, CMV negative, Crypto negative, he will need Bactrim DS daily for PCP prophylaxis, and Azithromycin 1200 mg weekly for MACY prophylaxis, changed antibiotics, to Augmentin 500 mg by mouth TID for seven more days for sinusitis , okay to discharge from ID specialist standpoint Physical Exam Vital signs: Vital Signs 08/26/18 20:00 08/26/18 22:32 08/27/18 00:00 Temperature 97.2 F L 98.5 F Pulse Rate 66 68 Respiratory Rate 18 18 Blood Pressure 145/88 H 137/84 Pulse Oximetry 95 94 L 08/27/18 02:20 08/27/18 08:00 08/27/18 12:00 Temperature 97.7 F 98 F Pulse Rate 63 60 Respiratory Rate 20 18 18 Blood Pressure 114/70 174/89 H Pulse Oximetry 91 L 98 Intake & Output 08/26/18 08/27/18 08/27/18 18:59 06:59 18:59 Intake Total 2890.1 / 2890.1 1880.2 / 1880.2 270.1 / 270.1 Output Total 1425 / 1425 500 / 500 Balance 1465.1 / 1465.1 1380.2 / 1380.2 270.1 / 270.1 Weight 100.9 kg Intake: IV 2290.1 / 2290.1 1460.2 / 1460.2 270.1 / 270.1 NS Inj 1,000 ML @ 125 mls/hr IV 1500 / 1500 500 / 500 .CONT .Q8H [facility] Rx#:[id number] Zovirax Inj 1,005 MG In NS Inj 170.1 / 170.1 340.2 / 340.2 170.1 / 170.1 150 ML @ 170.1 mls/hr IV.SIG Q8H [facility]OR Rx#:[id number] Vancomycin Inj 2,000 MG In NS 520 / 520 520 / 520 Inj 500 ML @ 250 mls/hr IV.SIG Q12H [facility] Rx#:[id number] Rocephin Inj 2,000 MG In NS Inj 100 / 100 100 / 100 100 / 100 100 ML @ 200 mls/hr IV.SIG Q12H [facility] Rx#:[id number] Oral 600 / 600 420 / 420 Output: Urine 1425 / 1425 500 / 500 Other: Date of Last Bowel Movement 08/25/18 Results - Labs CBC & Chem 7: 08/22/18 07:02 08/27/18 13:34 Laboratory Results - last 24 hr 08/27/18 08/27/18 13:34 13:34 Creatinine 0.73 Estimated GFR Greater than 89 Vancomycin Trough 23.4 H Microbiology 08/25/18 18:54 Sputum - Expectorated Sputum Gram Stain - Final 08/25/18 18:54 Sputum - Expectorated Sputum Sputum Culture - Final Heavy growth normal respiratory liane - Imaging Impressions Head MRI 08/26/18 00:00 CONCLUSION: 1. No acute findings brain. 2. Maxillary and sphenoid sinus disease. Assessment and Plan - Plan This patient is a 48-year-old male with a diagnosis of HIV. The patient states he was on treatment for nearly 20 years however over the past 10 years he stopped taking the medication. He presented to our emergency department with complaints of left-sided facial swelling as well as a cough that has been ongoing for the past few days. The patient was admitted for pneumonia as well as left facial cellulitis. 1. Suspected meningitis ID specialist following, initially refused MRI brain and Lumbar puncture, continue IV antibiotics Acyclovir, IV fluids, CD4 count is 20, RPR negative, crypto antigen negative, He refused treatment for HIV, HIV/Hepatitis C coinfection, Advanced AIDS, probably not meningitis as per ID specialist, continue management for PNA Following blood cultures, AFB blood culture, CMV, Crypto, Considered for Psychiatry evaluation performed. he has Depression and recommended Zoloft 50 mg daily. awaiting for MRI brain to be performed now. was negative. 08/27: discussed with ID specialist doctor Diane Swenson, the patient is non compliant with management, refusing HIV care, Negative MRI brain, his current presentation is probably non meningitis, Pneumonia, no ascites, CMV negative, Crypto negative, he will need Bactrim DS daily for PCP prophylaxis, and Azithromycin 1200 mg weekly for MACY prophylaxis, changed antibiotics, to Augmentin 500 mg by mouth TID for seven more days for sinusitis, okay to discharge from ID specialist standpoint 2. Left facial cellulitis. Left facial cellulitis has improved since admission. Blood cultures are negative. CT scan of the face did not show an abscess. Patient is on antibiotics. ID following. 3. Left basilar community-acquired pneumonia Imaging shows left-sided basilar pneumonia. On IV antibiotics Sputum culture negative. 3. HIV not on treatment The patient has a diagnosis of HIV. As of now the patient states he does not want to be on treatment for HIV and has no specific reason for not wanting treatment. 4. COPD Continue breathing treatments as needed. Currently the patient is on room air without any complaints of shortness of breath. 5. Depression Patient started on sertraline as per psychiatry recommendations for depression. I appreciate the evaluation and recommendations from psychiatry. Patient has been laying in bed for the past few days and does not seem to move around much. I will get PT to evaluate him. Code Status: DNR Discussed Condition With: Patient, nurse and ID Specialist doctor Diane Swenson Discharge Planning: Discharge Home now. - Time Spent with Patient Total time spent providing and/or coordinating discharge services: Greater than 30 minutes - Quality: VTE Deep Vein Thrombosis/Pulmonary Embolism Present on Admission: No Exam Vital signs: Vital Signs 08/26/18 20:00 08/26/18 22:32 08/27/18 00:00 Temperature 97.2 F L 98.5 F Pulse Rate 66 68 Respiratory Rate 18 19 18 Blood Pressure 145/88 H 137/84 Pulse Oximetry 95 94 L 08/27/18 02:20 08/27/18 08:00 08/27/18 12:00 Temperature 97.7 F 98 F Pulse Rate 63 60 Respiratory Rate 20 18 18 Blood Pressure 114/70 174/89 H Pulse Oximetry 91 L 98 08/27/18 16:00 Temperature 98.7 F Pulse Rate 62 Respiratory Rate 18 Blood Pressure 147/84 H Pulse Oximetry 94 L Intake & Output 08/26/18 08/27/18 08/27/18 18:59 06:59 18:59 Intake Total 2890.1 / 2890.1 1880.2 / 1880.2 270.1 / 270.1 Output Total 1425 / 1425 500 / 500 Balance 1465.1 / 1465.1 1380.2 / 1380.2 270.1 / 270.1 Weight 100.9 kg Intake: IV 2290.1 / 2290.1 1460.2 / 1460.2 270.1 / 270.1 NS Inj 1,000 ML @ 125 mls/hr IV 1500 / 1500 500 / 500 .CONT .Q8H [facility] Rx#:[id number] Zovirax Inj 1,005 MG In NS Inj 170.1 / 170.1 340.2 / 340.2 170.1 / 170.1 150 ML @ 170.1 mls/hr IV.SIG Q8H [facility] Rx#:[id number] Vancomycin Inj 2,000 MG In NS 520 / 520 520 / 520 Inj 500 ML @ 250 mls/hr IV.SIG Q12H [facility] Rx#:[id number] Rocephin Inj 2,000 MG In NS Inj 100 / 100 100 / 100 100 / 100 100 ML @ 200 mls/hr IV.SIG Q12H [facility] Rx#:[id number] Oral 600 / 600 420 / 420 Output: Urine 1425 / 1425 500 / 500 Other: Date of Last Bowel Movement 08/25/18 Narrative: GENERAL: This is a well-nourished, well-developed patient, in no apparent distress. CARDIOVASCULAR: Regular rate and rhythm without murmurs, gallops, or rubs. RESPIRATORY: Clear to auscultation. Breath sounds equal bilaterally. No wheezes , rales, or rhonchi. GASTROINTESTINAL: Abdomen soft, non-tender, nondistended. Normal active bowel sounds MUSCULOSKELETAL: Extremities without clubbing, cyanosis, or edema. NEURO: Alert & Oriented x4 to person, place, time, situation. Moves all ext x4 Results Procedures completed during hospitalization: None Labs on day of discharge: Labs from last 24 hours 08/27/18 08/27/18 13:34 13:34 Creatinine 0.73 Estimated GFR Greater than 89 Vancomycin Trough 23.4 H - Impressions ITS Impressions Chest X-Ray 08/20/18 21:03 CONCLUSION: Suspected early or mild pneumonia of the left base. Face CT 08/20/18 21:03 CONCLUSION: 1. Mild facial cellulitis without perceptible abscess. 2. No acute bone destruction demonstrated. 3. Acute on chronic paranasal sinusitis. Head CT 08/20/18 21:03 CONCLUSION: No acute intracranial abnormality. . Abdomen/Pelvis CT 08/22/18 00:00 CONCLUSION: 1. Nonspecific hepatosplenomegaly, slightly worse. 2. No ascites. 3. Contracted gallbladder containing a small stone. No inflammatory changes. No duct stone or ductal dilatation. 4. Stable cysts and scattered nonobstructing stones of both kidneys. 5. Stable umbilical hernia containing fat only. Chest CT 08/22/18 20:42 CONCLUSION: 1. Minimal basilar atelectasis. 2. Otherwise negative chest CT. Head MRI 08/26/18 00:00 CONCLUSION: 1. No acute findings brain. 2. Maxillary and sphenoid sinus disease. Discharge Plan - Discharge Disposition Patient Disposition: Discharge Home - Discharge Condition Condition: Stable - Discharge Order Discharge Orders: Discharge Order (Routine); Ordered 08/27/18 Ordered By: Kurt Maldonado - Discharge Details Anticipated Discharge Date: 08/27/18 Discharge Comment: Follow up with PCP as outpatient - Physicians Team Primary Care Provider: Primary Care Parul Benson Attending Provider: Kurt Maldonado Other Providers: Medication Review,Insurance ; Diane Swenson MD ; Kylah Osborn MD ; Serge Green MD
[2018-08-27] MEDS ORDERED: Amoxicillin/Clavulanate 500/125 MG Tablet PO SCH (22:00)
[2018-08-28] MEDS ORDERED: Vancomycin Inj 1,500 MG in Sodium Chlor 0.9% Inj 500 ML IV.SIG SCH (02:00)
[2018-08-30] MEDS ORDERED: Pharmacy Ordered Lab Info OTHER ONE (01:45)
== END 2018-08-27 19:35 | disposition home or self-care (01) ==
LOC: NEPC 19:14 → NEDA 08-21 00:28 → N07 08-21 02:35
PROVIDERS: ADMIT Internal Medicine; ATTEND Internal Medicine

== ENCOUNTER 2018-09-25 17:47 | Inpatient (IN) ==
[2018-09-25] MEDS ORDERED: Vancomycin Inj 2,250 MG in Sodium Chlor 0.9% Inj 500 ML IV.SIG STA (21:26)
[2018-09-25] MEDS ORDERED: Acyclovir Inj 700 MG in Sodium Chlor 0.9% Inj 100 ML IV.SIG ONE (21:43)
--- NOTE | 2018-09-25 22:04 | XR ---
EXAM DATE: 09/25/2018 10:01 PM EST AGE/SEX: 48 years / Male INDICATIONS: Fever. CLINICAL DATA: This is the patient's initial encounter. Patient reports that signs and symptoms have been present for 1 day and indicates a pain score of Nonresponsive. MEDICAL/SURGICAL HISTORY: Non-responsive. Non-responsive. COMPARISON: [facility], CHEST 1V SINGLE AP, 08/20/2018. . FINDINGS: A single AP view of the chest demonstrates the lungs to be symmetrically aerated without evidence of mass, infiltrate or effusion. The cardiomediastinal contours are unremarkable. Osseous structures a re intact. CONCLUSION: No acute cardiopulmonary disease. There is no evidence of pneumonia. Electronically signed by: Philippe Charlton MD 09/25/2018 10:02 PM EST
[2018-09-25 22:14] LABS: Baso % (Auto) 0.6 % (0.0-2.0); Eos # (Auto) 0.1 th/mm3 (0.0-0.4); Eos % (Auto) 3.4 % (0.0-4.0); Hematocrit 39.4 % (39.0-51.0); Hemoglobin 14.1 gm/dL (13.0-17.0); Lymph # (Auto) 0.3 th/mm3 (1.0-4.8); Lymph % (Auto) 10.8 % (9.0-44.0); Mean Corpuscular HGB Conc 35.8 % (32.0-36.0); Mean Corpuscular Hemoglobin 32.5 pg (27.0-34.0); Mean Corpuscular Volume 90.6 fL (80.0-100.0); Mean Platelet Volume 10.1 fL (7.0-11.0); Mono # (Auto) 0.5 th/mm3 (0.0-0.9); Mono % (Auto) 19.1 % (0.0-8.0); Neut # (Auto) 1.9 th/mm3 (1.8-7.7); Neut % (Auto) 66.1 % (16.0-70.0); Platelet Count 84 th/mm3 (150-450); Red Blood Count 4.35 mil/mm3 (4.50-5.90); Red Cell Distribution Width 14.5 % (11.6-17.2); White Blood Count 2.8 th/mm3 (4.0-11.0)
--- NOTE | 2018-09-25 22:19 | CT ---
EXAM DATE: 09/25/2018 10:15 PM EST AGE/SEX: 48 years / Male INDICATIONS: Cephalgia. CLINICAL DATA: This is the patient's initial encounter. Patient reports that signs and symptoms have been present for 1 day and indicates a pain score of 10/10. MEDICAL/SURGICAL HISTORY: Hepatitis C. Chronic obstructive pulmonary disease. HIV. None. RADIATION DOSE: 38.23 CTDI (mGy) [place] [facility] [place]. . TECHNIQUE: CT of the head without contrast. Using automated exposure control and adjustment of the mA and/or kV according to patient size, radiation dose was kept as low as reasonably achievable to ob tain optimal diagnostic quality images. DICOM format image data is available electronically for revi ew and comparison. FINDINGS: Cerebrum: The ventricles are normal for age. No evidence of midline shift, mass lesion, hemorrhage or acute infarction. No extraaxial fluid collections are seen. Posterior Fossa: The cerebellum and brainstem are intact. The 4th ventricle is midline. The cerebe llopontine angle is unremarkable. Extracranial: The visualized portion of the orbits is intact. Skull: The calvaria is intact. No evidence of skull fracture. CONCLUSION: 1. Negative noncontrast head CT. . Electronically signed by: Philippe Charlton MD 09/25/2018 10:17 PM EST
[2018-09-25] MEDS ORDERED: Morphine Inj 4 MG/ML Vial IV.PUSH ONE (22:31)
[2018-09-25 22:43] LABS: Alkaline Phosphatase 44 U/L (45-117)
[2018-09-25 22:46] LABS: Ovalocytes 1+
--- NOTE | 2018-09-25 23:11 | ED ---
HPI General Chief complaint: Headache Stated complaint: fever Time Seen by Provider: 09/25/18 21:10 History of Present Illness HPI narrative: 48-year-old male with a history of HIV, advanced AIDS, hepatitis C, COPD, depression, bipolar disorder, anxiety presents to the emergency department for evaluation of headache, neck pain and fever for 4 days. Patient states that he also has fatigue and shortness of breath and a cough. States he has had nausea, vomiting and diarrhea the last 2 days. States his T-max has been 103.2 F at home. He states he is worried about having meningitis. He states he has had this in the past when he was in his 20s and feels as though these symptoms of neck pain are similar. He does not take any antiretroviral medications by choice and does not follow-up with an infectious disease specialist. He denies chest pain, abdominal pain, numbness or tingling, vision changes, ear pain, sore throat. No other complaints. Related Data Home Medications Medication Instructions Recorded Confirmed No Known Home Medications 09/26/18 09/26/18 Allergies Allergy/AdvReac Type Severity Reaction Status Date / Time haloperidol Allergy Severe Swelling Verified 09/25/18 17:57 Review of Systems ROS: all other systems reviewed are negative PMFSH Social History Social History Substance History: Past History Second Hand Smoke Exposure: Yes Smoking Status: Current every day smoker Tobacco Type: Cigarettes How Often Do You Have a Drink Containing Alcohol: Never Recent Travel in [facility] within the Last 8 Weeks: No Recent Out of Country Travel within the Last 8 Weeks: No Immunization History Tetanus Immunization: Unsure Exam Narrative Exam Narrative: GENERAL: Well-nourished and well-developed male patient in no acute distress. SKIN: Warm and dry. HEAD: Normocephalic and atraumatic. EYES: No injection, drainage, or hyphema noted. PERRLA. EOMI. ENT: Mild swelling and erythema of left nares along outer septum. No nasal drainage noted. Oropharynx is clear and the TMs are normal with good landmarks. NECK: Supple and the trachea is midline. Tenderness to palpation of cervical paraspinal muscles. CARDIOVASCULAR: Regular rate and rhythm. RESPIRATORY: Bilateral wheezes throughout lung banuelos. No accessory muscle use or crackles. GASTROINTESTINAL: Abdomen is soft, non-tender, and nondistended. Umbilical hernia noted, soft, reducible. MUSCULOSKELETAL: No obvious deformities, swelling, cyanosis, or ecchymosis is present throughout the upper and lower extremities. Patient has full range of motion without any signs of neurovascular compromise. Distal pulses are 2+ throughout. NEUROLOGICAL: Awake, alert, and oriented. Normal speech and gait. Cranial nerves are grossly intact. Procedures Lumbar Puncture Time Out Performed: Yes Patient Position: upright Skin Prep: Povidone-Iodine 1% Local anesthetic used: Lidocaine 1% Amount of anesthesia used (mL): 10 Spinal Needle Gauge: 22G Interspace Used: L4-L5 Fluid Initially Obtained: other (none) Complications: unable to obtain CSF Course Initial Documented Vital Signs Temperature 100.3 F H 09/25/18 17:51 Pulse Rate 111 H 09/25/18 17:51 Respiratory Rate 20 09/25/18 17:51 Blood Pressure 145/89 H 09/25/18 17:51 Pulse Oximetry 96 09/25/18 17:51 Last Documented Vital Signs Temperature 99.5 F 09/28/18 11:26 Pulse Rate 104 H 09/28/18 11:26 Respiratory Rate 20 09/28/18 11:26 Blood Pressure 128/63 09/28/18 11:26 Pulse Oximetry 93 L 09/28/18 11:26 Critical Care Time Critical Care Time: Yes Total Critical Care Time: 45 Attestation: Aggregate critical care time was 45 minutes. Time to perform other separately billable procedures was not included in the critical care time. My time did not include minutes spent treating any other patients simultaneously or on activities that did not directly contribute to the patient's treatment. The services I provided to this patient were to treat and/or prevent clinically significant deterioration I provided critical care services requiring my management, as noted below: Chart data review, documentation time, medication orders and management, vital sign assessments/reviewing monitor data, ordering and reviewing lab tests, ordering and interpreting/reviewing x-rays and diagnostic studies, care of the patient and discussion of the patient with the admitting physicians. Medical Decision Making NANCY Attestation NANCY supervised visit: Yes Attestation: I, Dr. Malik, have reviewed the advance practice practitioner' s documentation and am in agreement, met with the patient face to face, made the diagnosis, and the medical decision making was done by me. The patient was initially evaluated by silvana carey. Please see their complete history and physical. *My assessment and Findings: The patient presents with low grade fever and monte, patient is known to be severely immunocompromised with diagnosis of AIDS, back in August he had a CD4 count less than 20, patient refused to establish with HIV provider, refused any HIV ART. not on hospice or palliative care. now returns because of monte/fever During the course of the patient's emergency department visit, the patient's history, examination, and differential diagnosis were reviewed with the patient. The patient was placed on a monitoring manager with oximetry and frequent blood pressure monitoring. The patient had [peripheral] IV access obtained and blood work sent for analysis. The patient's laboratory studies were reviewed and remarkable for [leukopenia 2.8, no anemia, relative thrombocytopenia 84,000, elevated monocytosis, normal electrolytes, normal kidney function, mild elevation of AST of 121 ALT normal at 53, alk phos of 44, normal total bilirubin of 0.5. Normal lactic acid] . Radiology studies were reviewed and remarkable for [-] MDM Narrative Medical decision making narrative: 48-year-old male with HIV AIDS with CD4 count less than 20 not on HAART therapy presents to the emergency department for evaluation of fever, headache and neck pain for 4 days. Patient's temperature is 100.3F, he is tachycardic with a heart rate of 107 bpm. Oxygen saturation is slightly decreased at 93% on room air. IV access is obtained, labs of been drawn and sent. Patient is placed on cardiac telemetry and pulse oximetry monitoring. I did review the patient's recent hospitalization 1 month ago for headache and cellulitis of face. At that time he was refusing LP. I discussed with him the need for LP due to concern for meningitis with headache, neck pain and fever. He verbalizes understanding and states that he does want the LP and any other tests necessary at this time. Previously noted on palliative care consult the patient stated he was DNR and DNI - I discussed this with him again today. He states that yes he still wishes to be DNR and DNI. Patient administered IV Ceftazidime, Ampicillin, Vancomycin, Acyclovir and Amphotericin B to treat bacterial/viral/fungal causes of meningitis. Duonebs ordered as well as morphine for pain. Head CT is negative. Chest x-ray is negative. CBC shows white blood cell count is decreased to 2.8, thrombocytopenia with platelets 84. Lactic acid is 1.5. Patient signed out to Dr. Malik who will assume care of the patient. Patient will have lumbar puncture and be admitted to medicine service for IV antibiotics. Medical Screen Exam Complete: Yes Emergency Medical Condition: Yes Differential Diagnosis Differential Diagnosis: Sepsis versus influenza versus pneumonia versus meningitis versus sinusitis Medical Records Medical records reviewed: Yes I reviewed the patient's medical records. Lab Data Lab results reviewed: Yes I reviewed the patient's lab results. Result diagrams: 09/28/18 08:00 09/28/18 08:00 Lab Results 09/25/18 09/25/18 09/25/18 Range/Units 21:45 21:45 23:00 WBC 2.8 L (4.0-11.0) th/mm3 RBC 4.35 L (4.50-5.90) mil/mm3 Hgb 14.1 (13.0-17.0) gm/dL Hct 39.4 (39.0-51.0) % MCV 90.6 (80.0-100.0) fL MCH 32.5 (27.0-34.0) pg MCHC 35.8 (32.0-36.0) % RDW 14.5 (11.6-17.2) % Plt Count 84 L (150-450) th/mm3 MPV 10.1 (7.0-11.0) fL Prelim Diff (Auto) Slide review pending Neut % (Auto) 66.1 (16.0-70.0) % Lymph % (Auto) 10.8 (9.0-44.0) % [place] % (Auto) 19.1 H (0.0-8.0) % Eos % (Auto) 3.4 (0.0-4.0) % Baso % (Auto) 0.6 (0.0-2.0) % Neut # (Auto) 1.9 (1.8-7.7) th/mm3 Lymph # (Auto) 0.3 L (1.0-4.8) th/mm3 [place] # (Auto) 0.5 (0.0-0.9) th/mm3 Eos # (Auto) 0.1 (0.0-0.4) th/mm3 Baso # (Auto) 0.0 (0.0-0.2) th/mm3 WBC Differential . Diff Scan Auto diff confirmed Seg Neuts % (Manual) (16-70) % Band Neuts % (Manual) (0-6) % Lymphocytes % (Manual) (9-44) % Monocytes % (Manual) (0-8) % Eosinophils % (Manual) (0-4) % Basophils % (Manual) (0-2) % Abs Neuts (Manual) (1.8-7.7) th/mm3 Differential Comment . Platelet Estimate Low L (Normal) Platelet Morphology Enlarged H (Normal) RBC Morphology (Normal) Ovalocytes 1+ H (None) Sodium 140 (136-145) meq/L Potassium 4.1 (3.5-5.1) meq/L Chloride 108 H (98-107) meq/L Carbon Dioxide 24.4 (21.0-32.0) meq/L Anion Gap 8 (5-15) meq/L BUN 15 (7-18) mg/dL Creatinine 0.88 (0.60-1.30) mg/dL Estimated GFR Greater than 89 (>89) mL/min POC Glucose (68-110) mg/dl Random Glucose 91 (74-106) mg/dL Lactic Acid 1.5 (0.4-2.0) mmol/L Calcium 8.6 (8.5-10.1) mg/dL Prot Corrected Calcium (8.5-10.1) mg/dL Magnesium 1.9 (1.5-2.5) mg/dL Total Bilirubin 0.5 (0.2-1.0) mg/dL AST 121 H (15-37) U/L ALT 53 (12-78) U/L Alkaline Phosphatase 44 L (45-117) U/L Total Creatine Kinase (39-308) U/L Total Protein 9.0 H (6.4-8.2) g/dL Albumin 2.8 L (3.4-5.0) g/dL Urine Color (Yellw/Straw) Urine Clarity (Clear) Urine pH (5.0-8.5) Ur Specific Exchange (1.002-1.035) Urine Protein (Neg-Trace) mg/dL Urine Glucose (UA) (Negative) mg/dL Urine Ketones (Negative) mg/dL Urine Occult Blood (Negative) Urine Nitrate (Negative) Urine Bilirubin (Negative) Urine Urobilinogen (Less than 2) mg/dL Ur Leukocyte Esterase (Negative) Urine RBC (0-3) /hpf Urine WBC (0-5) /hpf Ur Squamous Epith Cells (0-5) /hpf Hyaline Casts (0-3) /lpf Urine Mucus (Occasional) /lpf Micro UA Comment Ur Microscopic Review Urine Culture Comments Vancomycin Trough (5.0-10.0) mcg/mL Cryptococcus Ag Screen (Negative) 09/25/18 09/26/18 09/26/18 Range/Units 23:00 01:10 04:20 WBC (4.0-11.0) th/mm3 RBC (4.50-5.90) mil/mm3 Hgb (13.0-17.0) gm/dL Hct (39.0-51.0) % MCV (80.0-100.0) fL MCH (27.0-34.0) pg MCHC (32.0-36.0) % RDW (11.6-17.2) % Plt Count (150-450) th/mm3 MPV (7.0-11.0) fL Prelim Diff (Auto) Neut % (Auto) (16.0-70.0) % Lymph % (Auto) (9.0-44.0) % Berrien % (Auto) (0.0-8.0) % Eos % (Auto) (0.0-4.0) % Baso % (Auto) (0.0-2.0) % Neut # (Auto) (1.8-7.7) th/mm3 Lymph # (Auto) (1.0-4.8) th/mm3 [place]rien # (Auto) (0.0-0.9) th/mm3 Eos # (Auto) (0.0-0.4) th/mm3 Baso # (Auto) (0.0-0.2) th/mm3 WBC Differential Diff Scan Seg Neuts % (Manual) (16-70) % Band Neuts % (Manual) (0-6) % Lymphocytes % (Manual) (9-44) % Monocytes % (Manual) (0-8) % Eosinophils % (Manual) (0-4) % Basophils % (Manual) (0-2) % Abs Neuts (Manual) (1.8-7.7) th/mm3 Differential Comment Platelet Estimate (Normal) Platelet Morphology (Normal) RBC Morphology (Normal) Ovalocytes (None) Sodium (136-145) meq/L Potassium (3.5-5.1) meq/L Chloride (98-107) meq/L Carbon Dioxide (21.0-32.0) meq/L Anion Gap (5-15) meq/L BUN (7-18) mg/dL Creatinine (0.60-1.30) mg/dL Estimated GFR (>89) mL/min POC Glucose (68-110) mg/dl Random Glucose (74-106) mg/dL Lactic Acid (0.4-2.0) mmol/L Calcium (8.5-10.1) mg/dL Prot Corrected Calcium (8.5-10.1) mg/dL Magnesium (1.5-2.5) mg/dL Total Bilirubin (0.2-1.0) mg/dL AST (15-37) U/L ALT (12-78) U/L Alkaline Phosphatase (45-117) U/L Total Creatine Kinase 91 (39-308) U/L Total Protein (6.4-8.2) g/dL Albumin (3.4-5.0) g/dL Urine Color Valerie (Yellw/Straw) Urine Clarity Hazy H (Clear) Urine pH 6.0 (5.0-8.5) Ur Specific Exchange 1.025 (1.002-1.035) Urine Protein 500 or greater (Neg-Trace) mg/dL Urine Glucose (UA) Negative (Negative) mg/dL Urine Ketones Negative (Negative) mg/dL Urine Occult Blood Moderate H (Negative) Urine Nitrate Negative (Negative) Urine Bilirubin Negative (Negative) Urine Urobilinogen 4 or greater (Less than 2) mg/dL Ur Leukocyte Esterase Negative (Negative) Urine RBC 48 H (0-3) /hpf Urine WBC 2 (0-5) /hpf Ur Squamous Epith Cells 1 (0-5) /hpf Hyaline Casts 1 (0-3) /lpf Urine Mucus Moderate H (Occasional) /lpf Micro UA Comment Culture not ind Ur Microscopic Review Not Reportable Urine Culture Comments Culture not ind Vancomycin Trough (5.0-10.0) mcg/mL Cryptococcus Ag Screen Negative (Negative) 09/26/18 09/26/18 09/26/18 Range/Units 07:55 10:58 11:34 WBC (4.0-11.0) th/mm3 RBC (4.50-5.90) mil/mm3 Hgb (13.0-17.0) gm/dL Hct (39.0-51.0) % MCV (80.0-100.0) fL MCH (27.0-34.0) pg MCHC (32.0-36.0) % RDW (11.6-17.2) % Plt Count (150-450) th/mm3 MPV (7.0-11.0) fL Prelim Diff (Auto) Neut % (Auto) (16.0-70.0) % Lymph % (Auto) (9.0-44.0) % [place] % (Auto) (0.0-8.0) % Eos % (Auto) (0.0-4.0) % Baso % (Auto) (0.0-2.0) % Neut # (Auto) (1.8-7.7) th/mm3 Lymph # (Auto) (1.0-4.8) th/mm3 [place] # (Auto) (0.0-0.9) th/mm3 Eos # (Auto) (0.0-0.4) th/mm3 Baso # (Auto) (0.0-0.2) th/mm3 WBC Differential Diff Scan Seg Neuts % (Manual) (16-70) % Band Neuts % (Manual) (0-6) % Lymphocytes % (Manual) (9-44) % Monocytes % (Manual) (0-8) % Eosinophils % (Manual) (0-4) % Basophils % (Manual) (0-2) % Abs Neuts (Manual) (1.8-7.7) th/mm3 Differential Comment Platelet Estimate (Normal) Platelet Morphology (Normal) RBC Morphology (Normal) Ovalocytes (None) Sodium (136-145) meq/L Potassium (3.5-5.1) meq/L Chloride (98-107) meq/L Carbon Dioxide (21.0-32.0) meq/L Anion Gap (5-15) meq/L BUN (7-18) mg/dL Creatinine (0.60-1.30) mg/dL Estimated GFR (>89) mL/min POC Glucose 119 H 97 (68-110) mg/dl Random Glucose (74-106) mg/dL Lactic Acid (0.4-2.0) mmol/L Calcium (8.5-10.1) mg/dL Prot Corrected Calcium (8.5-10.1) mg/dL Magnesium (1.5-2.5) mg/dL Total Bilirubin (0.2-1.0) mg/dL AST (15-37) U/L ALT (12-78) U/L Alkaline Phosphatase (45-117) U/L Total Creatine Kinase (39-308) U/L Total Protein (6.4-8.2) g/dL Albumin (3.4-5.0) g/dL Urine Color (Yellw/Straw) Urine Clarity (Clear) Urine pH (5.0-8.5) Ur Specific Exchange (1.002-1.035) Urine Protein (Neg-Trace) mg/dL Urine Glucose (UA) (Negative) mg/dL Urine Ketones (Negative) mg/dL Urine Occult Blood (Negative) Urine Nitrate (Negative) Urine Bilirubin (Negative) Urine Urobilinogen (Less than 2) mg/dL Ur Leukocyte Esterase (Negative) Urine RBC (0-3) /hpf Urine WBC (0-5) /hpf Ur Squamous Epith Cells (0-5) /hpf Hyaline Casts (0-3) /lpf Urine Mucus (Occasional) /lpf Micro UA Comment Ur Microscopic Review Urine Culture Comments Vancomycin Trough 12.0 H (5.0-10.0) mcg/mL Cryptococcus Ag Screen (Negative) 09/26/18 09/26/18 09/27/18 Range/Units 17:47 20:19 06:04 WBC (4.0-11.0) th/mm3 RBC (4.50-5.90) mil/mm3 Hgb (13.0-17.0) gm/dL Hct (39.0-51.0) % MCV (80.0-100.0) fL MCH (27.0-34.0) pg MCHC (32.0-36.0) % RDW (11.6-17.2) % Plt Count (150-450) th/mm3 MPV (7.0-11.0) fL Prelim Diff (Auto) Neut % (Auto) (16.0-70.0) % Lymph % (Auto) (9.0-44.0) % [place] % (Auto) (0.0-8.0) % Eos % (Auto) (0.0-4.0) % Baso % (Auto) (0.0-2.0) % Neut # (Auto) (1.8-7.7) th/mm3 Lymph # (Auto) (1.0-4.8) th/mm3 [place] # (Auto) (0.0-0.9) th/mm3 Eos # (Auto) (0.0-0.4) th/mm3 Baso # (Auto) (0.0-0.2) th/mm3 WBC Differential Diff Scan Seg Neuts % (Manual) (16-70) % Band Neuts % (Manual) (0-6) % Lymphocytes % (Manual) (9-44) % Monocytes % (Manual) (0-8) % Eosinophils % (Manual) (0-4) % Basophils % (Manual) (0-2) % Abs Neuts (Manual) (1.8-7.7) th/mm3 Differential Comment Platelet Estimate (Normal) Platelet Morphology (Normal) RBC Morphology (Normal) Ovalocytes (None) Sodium (136-145) meq/L Potassium (3.5-5.1) meq/L Chloride (98-107) meq/L Carbon Dioxide (21.0-32.0) meq/L Anion Gap (5-15) meq/L BUN (7-18) mg/dL Creatinine (0.60-1.30) mg/dL Estimated GFR (>89) mL/min POC Glucose 133 H 168 H (68-110) mg/dl Random Glucose (74-106) mg/dL Lactic Acid (0.4-2.0) mmol/L Calcium (8.5-10.1) mg/dL Prot Corrected Calcium (8.5-10.1) mg/dL Magnesium (1.5-2.5) mg/dL Total Bilirubin (0.2-1.0) mg/dL AST (15-37) U/L ALT (12-78) U/L Alkaline Phosphatase (45-117) U/L Total Creatine Kinase (39-308) U/L Total Protein (6.4-8.2) g/dL Albumin (3.4-5.0) g/dL Urine Color (Yellw/Straw) Urine Clarity (Clear) Urine pH (5.0-8.5) Ur Specific Exchange (1.002-1.035) Urine Protein (Neg-Trace) mg/dL Urine Glucose (UA) (Negative) mg/dL Urine Ketones (Negative) mg/dL Urine Occult Blood (Negative) Urine Nitrate (Negative) Urine Bilirubin (Negative) Urine Urobilinogen (Less than 2) mg/dL Ur Leukocyte Esterase (Negative) Urine RBC (0-3) /hpf Urine WBC (0-5) /hpf Ur Squamous Epith Cells (0-5) /hpf Hyaline Casts (0-3) /lpf Urine Mucus (Occasional) /lpf Micro UA Comment Ur Microscopic Review Urine Culture Comments Vancomycin Trough (5.0-10.0) mcg/mL Cryptococcus Ag Screen Negative (Negative) 09/27/18 09/27/18 09/27/18 Range/Units 06:04 06:04 07:58 WBC 2.5 L (4.0-11.0) th/mm3 RBC 3.15 L (4.50-5.90) mil/mm3 Hgb 10.4 L D (13.0-17.0) gm/dL Hct 28.9 L (39.0-51.0) % MCV 91.7 (80.0-100.0) fL MCH 33.1 (27.0-34.0) pg MCHC 36.1 H (32.0-36.0) % RDW 14.7 (11.6-17.2) % Plt Count 53 L D (150-450) th/mm3 MPV 9.7 (7.0-11.0) fL Prelim Diff (Auto) Slide review pending Neut % (Auto) 62.4 (16.0-70.0) % Lymph % (Auto) 14.6 (9.0-44.0) % [place] % (Auto) 11.7 H (0.0-8.0) % Eos % (Auto) 10.7 H (0.0-4.0) % Baso % (Auto) 0.6 (0.0-2.0) % Neut # (Auto) 1.6 L (1.8-7.7) th/mm3 Lymph # (Auto) 0.4 L (1.0-4.8) th/mm3 [place] # (Auto) 0.3 (0.0-0.9) th/mm3 Eos # (Auto) 0.3 (0.0-0.4) th/mm3 Baso # (Auto) 0.0 (0.0-0.2) th/mm3 WBC Differential Manual diff final Diff Scan Seg Neuts % (Manual) 75 H (16-70) % Band Neuts % (Manual) 12 H (0-6) % Lymphocytes % (Manual) 6 L (9-44) % Monocytes % (Manual) 5 (0-8) % Eosinophils % (Manual) 1 (0-4) % Basophils % (Manual) 1 (0-2) % Abs Neuts (Manual) 2.2 (1.8-7.7) th/mm3 Differential Comment . Platelet Estimate Low L (Normal) Platelet Morphology Normal (Normal) RBC Morphology (Normal) Ovalocytes (None) Sodium 145 (136-145) meq/L Potassium 3.3 L D (3.5-5.1) meq/L Chloride 111 H (98-107) meq/L Carbon Dioxide 23.0 (21.0-32.0) meq/L Anion Gap 11 (5-15) meq/L BUN 12 (7-18) mg/dL Creatinine 0.93 (0.60-1.30) mg/dL Estimated GFR 86 L (>89) mL/min POC Glucose 103 (68-110) mg/dl Random Glucose 82 (74-106) mg/dL Lactic Acid (0.4-2.0) mmol/L Calcium 6.6 L* D (8.5-10.1) mg/dL Prot Corrected Calcium 7.1 L* (8.5-10.1) mg/dL Magnesium (1.5-2.5) mg/dL Total Bilirubin 0.3 (0.2-1.0) mg/dL AST 56 H (15-37) U/L ALT 32 (12-78) U/L Alkaline Phosphatase 33 L (45-117) U/L Total Creatine Kinase (39-308) U/L Total Protein 6.0 L D (6.4-8.2) g/dL Albumin 2.2 L D (3.4-5.0) g/dL Urine Color (Yellw/Straw) Urine Clarity (Clear) Urine pH (5.0-8.5) Ur Specific Exchange (1.002-1.035) Urine Protein (Neg-Trace) mg/dL Urine Glucose (UA) (Negative) mg/dL Urine Ketones (Negative) mg/dL Urine Occult Blood (Negative) Urine Nitrate (Negative) Urine Bilirubin (Negative) Urine Urobilinogen (Less than 2) mg/dL Ur Leukocyte Esterase (Negative) Urine RBC (0-3) /hpf Urine WBC (0-5) /hpf Ur Squamous Epith Cells (0-5) /hpf Hyaline Casts (0-3) /lpf Urine Mucus (Occasional) /lpf Micro UA Comment Ur Microscopic Review Urine Culture Comments Vancomycin Trough (5.0-10.0) mcg/mL Cryptococcus Ag Screen (Negative) 09/27/18 09/27/18 09/28/18 Range/Units 17:36 19:51 08:00 WBC 2.0 L (4.0-11.0) th/mm3 RBC 3.14 L (4.50-5.90) mil/mm3 Hgb 10.2 L (13.0-17.0) gm/dL Hct 29.3 L (39.0-51.0) % MCV 93.3 (80.0-100.0) fL MCH 32.6 (27.0-34.0) pg MCHC 34.9 (32.0-36.0) % RDW 15.0 (11.6-17.2) % Plt Count 55 L (150-450) th/mm3 MPV 9.6 (7.0-11.0) fL Prelim Diff (Auto) Slide review pending Neut % (Auto) 48.1 (16.0-70.0) % Lymph % (Auto) 20.1 (9.0-44.0) % [place] % (Auto) 11.5 H (0.0-8.0) % Eos % (Auto) 20.0 H (0.0-4.0) % Baso % (Auto) 0.3 (0.0-2.0) % Neut # (Auto) 0.9 L (1.8-7.7) th/mm3 Lymph # (Auto) 0.4 L (1.0-4.8) th/mm3 [place] # (Auto) 0.2 (0.0-0.9) th/mm3 Eos # (Auto) 0.4 (0.0-0.4) th/mm3 Baso # (Auto) 0.0 (0.0-0.2) th/mm3 WBC Differential Manual diff final Diff Scan Seg Neuts % (Manual) 57 (16-70) % Band Neuts % (Manual) 1 (0-6) % Lymphocytes % (Manual) 19 (9-44) % Monocytes % (Manual) 7 (0-8) % Eosinophils % (Manual) 16 H (0-4) % Basophils % (Manual) (0-2) % Abs Neuts (Manual) 1.2 L (1.8-7.7) th/mm3 Differential Comment . Platelet Estimate Low L (Normal) Platelet Morphology Normal (Normal) RBC Morphology Normal (Normal) Ovalocytes (None) Sodium (136-145) meq/L Potassium (3.5-5.1) meq/L Chloride (98-107) meq/L Carbon Dioxide (21.0-32.0) meq/L Anion Gap (5-15) meq/L BUN (7-18) mg/dL Creatinine (0.60-1.30) mg/dL Estimated GFR (>89) mL/min POC Glucose 123 H 154 H (68-110) mg/dl Random Glucose (74-106) mg/dL Lactic Acid (0.4-2.0) mmol/L Calcium (8.5-10.1) mg/dL Prot Corrected Calcium (8.5-10.1) mg/dL Magnesium (1.5-2.5) mg/dL Total Bilirubin (0.2-1.0) mg/dL AST (15-37) U/L ALT (12-78) U/L Alkaline Phosphatase (45-117) U/L Total Creatine Kinase (39-308) U/L Total Protein (6.4-8.2) g/dL Albumin (3.4-5.0) g/dL Urine Color (Yellw/Straw) Urine Clarity (Clear) Urine pH (5.0-8.5) Ur Specific Exchange (1.002-1.035) Urine Protein (Neg-Trace) mg/dL Urine Glucose (UA) (Negative) mg/dL Urine Ketones (Negative) mg/dL Urine Occult Blood (Negative) Urine Nitrate (Negative) Urine Bilirubin (Negative) Urine Urobilinogen (Less than 2) mg/dL Ur Leukocyte Esterase (Negative) Urine RBC (0-3) /hpf Urine WBC (0-5) /hpf Ur Squamous Epith Cells (0-5) /hpf Hyaline Casts (0-3) /lpf Urine Mucus (Occasional) /lpf Micro UA Comment Ur Microscopic Review Urine Culture Comments Vancomycin Trough (5.0-10.0) mcg/mL Cryptococcus Ag Screen (Negative) 09/28/18 09/28/18 09/28/18 Range/Units 08:00 08:45 11:10 WBC (4.0-11.0) th/mm3 RBC (4.50-5.90) mil/mm3 Hgb (13.0-17.0) gm/dL Hct (39.0-51.0) % MCV (80.0-100.0) fL MCH (27.0-34.0) pg MCHC (32.0-36.0) % RDW (11.6-17.2) % Plt Count (150-450) th/mm3 MPV (7.0-11.0) fL Prelim Diff (Auto) Neut % (Auto) (16.0-70.0) % Lymph % (Auto) (9.0-44.0) % [place] % (Auto) (0.0-8.0) % Eos % (Auto) (0.0-4.0) % Baso % (Auto) (0.0-2.0) % Neut # (Auto) (1.8-7.7) th/mm3 Lymph # (Auto) (1.0-4.8) th/mm3 [place] # (Auto) (0.0-0.9) th/mm3 Eos # (Auto) (0.0-0.4) th/mm3 Baso # (Auto) (0.0-0.2) th/mm3 WBC Differential Diff Scan Seg Neuts % (Manual) (16-70) % Band Neuts % (Manual) (0-6) % Lymphocytes % (Manual) (9-44) % Monocytes % (Manual) (0-8) % Eosinophils % (Manual) (0-4) % Basophils % (Manual) (0-2) % Abs Neuts (Manual) (1.8-7.7) th/mm3 Differential Comment Platelet Estimate (Normal) Platelet Morphology (Normal) RBC Morphology (Normal) Ovalocytes (None) Sodium 146 H (136-145) meq/L Potassium 3.3 L (3.5-5.1) meq/L Chloride 114 H (98-107) meq/L Carbon Dioxide 26.2 (21.0-32.0) meq/L Anion Gap 6 (5-15) meq/L BUN 10 (7-18) mg/dL Creatinine 0.79 (0.60-1.30) mg/dL Estimated GFR Greater than 89 (>89) mL/min POC Glucose 89 (68-110) mg/dl Random Glucose 80 (74-106) mg/dL Lactic Acid (0.4-2.0) mmol/L Calcium 7.0 L* (8.5-10.1) mg/dL Prot Corrected Calcium 7.4 L* (8.5-10.1) mg/dL Magnesium (1.5-2.5) mg/dL Total Bilirubin 0.2 (0.2-1.0) mg/dL AST 56 H (15-37) U/L ALT 32 (12-78) U/L Alkaline Phosphatase 34 L (45-117) U/L Total Creatine Kinase (39-308) U/L Total Protein 6.3 L (6.4-8.2) g/dL Albumin 2.2 L (3.4-5.0) g/dL Urine Color (Yellw/Straw) Urine Clarity (Clear) Urine pH (5.0-8.5) Ur Specific Exchange (1.002-1.035) Urine Protein (Neg-Trace) mg/dL Urine Glucose (UA) (Negative) mg/dL Urine Ketones (Negative) mg/dL Urine Occult Blood (Negative) Urine Nitrate (Negative) Urine Bilirubin (Negative) Urine Urobilinogen (Less than 2) mg/dL Ur Leukocyte Esterase (Negative) Urine RBC (0-3) /hpf Urine WBC (0-5) /hpf Ur Squamous Epith Cells (0-5) /hpf Hyaline Casts (0-3) /lpf Urine Mucus (Occasional) /lpf Micro UA Comment Ur Microscopic Review Urine Culture Comments Vancomycin Trough 15.5 H (5.0-10.0) mcg/mL Cryptococcus Ag Screen (Negative) Imaging Data Radiologist's impression: Chest X-Ray 09/25/18 21:26 CONCLUSION: No acute cardiopulmonary disease. There is no evidence of pneumonia. Head CT 09/25/18 21:26 CONCLUSION: 1. Negative noncontrast head CT. . Abdomen/Pelvis CT 09/26/18 02:06 CONCLUSION: 1. Nonobstructing left renal stones. Renal cysts. 2. Splenomegaly 3. Fat-containing umbilical hernia. Discharge Plan Discharge Disposition Patient Disposition: 30 Still Patient Discharge Details Diagnosis: Sepsis, Fever, HIV (human immunodeficiency virus infection), Headache Physicians Team ED Provider: Albert Malik ED Midlevel Provider: Silvana Carey Primary Care Provider: UNKNOWN, Attending Provider: Prem Carey Other Providers: Pop Toribio ; [facility],Insurance Discharge Interventions Interventions: ED Discharge Assessment Last Done: 09/26/18 13:15 Vital Signs Last Done: 09/26/18 05:00 Status ED Status: Left Department Discharge Information Discharge Date/Time: 09/26/18 13:17
[2018-09-26 00:40] LABS: Alanine Aminotransferase 53 U/L (12-78); Albumin 2.8 g/dL (3.4-5.0); Anion Gap 8 meq/L (5-15); Aspartate Aminotransferase 121 U/L (15-37); Blood Urea Nitrogen 15 mg/dL (7-18); Calcium 8.6 mg/dL (8.5-10.1); Carbon Dioxide 24.4 meq/L (21.0-32.0); Chloride 108 meq/L (98-107); Glomerular Filtration Rate Greater Than 89 mL/min (>89); Glucose,Random 91 mg/dL (74-106); Magnesium 1.9 mg/dL (1.5-2.5); Sodium 140 meq/L (136-145)
[2018-09-26 00:46] LABS: Potassium 4.1 meq/L (3.5-5.1)
[2018-09-26] MEDS ORDERED: Vancomycin Consult Pharmacy OTHER PRN (01:04)
[2018-09-26] MEDS ORDERED: Bisacodyl 10 MG Supp RECTAL PRN (01:06)
[2018-09-26 01:21] LABS: Bilirubin,Urine Negative (Negative); Clarity,Urine Hazy (Clear); Color,Urine Amber (Yellw/Straw); Glucose,Urine (UA) Negative (Negative); Hyaline Casts,Urine 1 /lpf (0-3); Leukocyte Esterase,Urine Negative (Negative); Mucus,Urine Moderate /lpf (Occasional); Nitrite,Urine Negative (Negative); Specific Gravity,Urine 1.025 (1.002-1.035); Squamous Epithelial Cell,Urine 1 /hpf (0-5); Urobilinogen,Urine 4 or Greater mg/dL (Less than 2)
[2018-09-26] MEDS: Sod Chloride 0.9% Inj 1,000 ML IV.CONT SCH ×2 (02:17→11:22)
[2018-09-26] MEDS: Acetaminophen 325 MG Tablet PO PRN (03:47)
[2018-09-26] MEDS ORDERED: Sod Chloride 0.9% Inj 2,000 ML IV.SIG ONE (04:00)
[2018-09-26] MEDS ORDERED: Dextrose 50% in Water 50 ML Vial IV.PUSH PRN (04:15)
--- NOTE | 2018-09-26 04:27 | P.HPIM ---
History of Present Illness Primary Care Physician: UNKNOWN History of Present Illness: 48-year-old male with a history of HIV, AIDS, most recent CD4 count of 20, noncompliant with medications, hepatitis C, COPD, bipolar, presents with a 4- day history of severe whole head headache, fevers up to 103.2 at home, fatigue, shortness of breath with nonproductive cough, nausea, vomiting, diarrhea. He is concerned he has meningitis. He reports history of meningitis in the past. He denies chest pain, vision changes, abdominal pain. Inpatient Certification: I certify that the inpatient services were ordered in accordance with Medicare regulations governing the order. This includes certification that hospital inpatient services are reasonable and necessary and in the case of services not specified as inpatient-only under 42 CFR 419.22(n), that they are appropriately provided as inpatient services in accordance to with the 2-midnight benchmark under 43 CFR 412.3(e) Estimated Total Length of Stay (Days): 3 Plans for Post Hospital Care: Home Review of Systems All other systems reviewed negative except as stated in [facility] - History History 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 - Medical History Medical History: Medical History (Last Reviewed 09/26/18 @ 04:14 by Shabbir Talbert MD) AIDS Anxiety Bipolar 1 disorder COPD (chronic obstructive pulmonary disease) Depression HIV disease Hepatitis C History of MRSA infection Neuropathy PTSD (post-traumatic stress disorder) Pneumocystosis pneumonia Suicidal ideations - Surgical History Surgical History: Surgical History (Last Reviewed 09/26/18 @ 04:14 by Shabbir Talbert MD) No history of previous surgery - Family History Family History: Family History (Last Reviewed 09/26/18 @ 04:14 by Shabbir Talbert MD) Other Diabetes mellitus - Social History I have reviewed the patient's Social History: Yes - Tobacco History Second Hand Smoke Exposure: Yes Tobacco Use In Past 30 Days: Yes Smoking Status: Current every day smoker Tobacco Type: Cigarettes - Alcohol History How Often Do You Have a Drink Containing Alcohol: Never - Substance Use History Substance History: Past History - Travel History Recent Travel in the [place] Within the Last 8 Weeks: No Recent Travel Out of the Country Within the Last 8 Weeks: No - Immunization History Tetanus Immunization: Unsure Medications and Allergies Active Medications: Active Medications Acetaminophen (Tylenol) 650 mg PO Q6H PRN PRN Reason: TEMP > 100.7 Last Admin: 09/26/18 03:47 Dose: 650 mg Al Hydroxide/Mg Hydroxide (Milk Of Magnesia Liq) 30 ml PO Q12H PRN PRN Reason: Mild Constipation Bisacodyl (Dulcolax Supp) 10 mg RECTAL DAILY PRN PRN Reason: SEVERE CONSITIPATION Ampicillin Sodium 2,000 mg/ (Sodium Chloride) 100 mls @ 400 mls/hr IV.SIG Q4H MINOR Cefepime HCl 2,000 mg/ Sodium (Chloride) 100 mls @ 200 mls/hr IV.SIG Q8H MINOR Last Infusion: 09/26/18 03:22 Dose: Infused Sodium Chloride (Ns Inj) 1,000 mls @ 100 mls/hr IV.CONT .Q10H MINOR Last Admin: 09/26/18 02:17 Dose: 100 mls/hr Lactulose (Lactulose Liq) 30 ml PO DAILY PRN PRN Reason: SEVERE CONSITIPATION Ondansetron HCl (Zofran Inj) 4 mg IV.PUSH Q6H PRN PRN Reason: NAUSEA OR VOMITING Pharmacy Profile Note (Vancomycin Consult Pharmacy) 1 each OTHER UNSCH PRN PRN Reason: Pharmacy to dose Sennosides (Senokot) 17.2 mg PO Q12H PRN PRN Reason: Moderate Constipation Allergies Allergy/AdvReac Type Severity Reaction Status Date / Time haloperidol Allergy Severe Swelling Verified 09/25/18 17:57 Home Medications Medication Instructions Recorded Confirmed Type No Known Home Medications 09/26/18 09/26/18 History Exam Vital signs: Vital Signs 09/25/18 17:51 09/25/18 21:45 09/26/18 00:00 Temperature 100.3 F H 100.0 F H 100.7 F H Pulse Rate 111 H 107 H 109 H Respiratory Rate 20 18 18 Blood Pressure 145/89 H 121/94 H 129/69 Pulse Oximetry 96 93 L 93 L 09/26/18 02:00 09/26/18 02:57 09/26/18 02:59 Temperature 102.7 F H 103.1 F H Pulse Rate 125 H Respiratory Rate 18 Blood Pressure 117/58 L Pulse Oximetry 94 L Intake & Output 09/25/18 09/25/18 09/26/18 06:59 18:59 06:59 Intake Total 936.5 / 936.5 Balance 936.5 / 936.5 Weight 102.058 kg Intake: IV 936.5 / 936.5 Zovirax Inj 700 MG In NS Inj 114 / 114 100 ML @ 114 mls/hr IV.SIG ONCE ONE Rx#:[id number] Ampicillin Inj 2,000 MG In NS 100 / 100 Inj 100 ML @ 400 mls/hr IV.SIG ONCE ONE Rx#:[id number] Maxipime Inj 2,000 MG In NS Inj 100 / 100 100 ML @ 200 mls/hr IV.SIG Q8H MINOR Rx#:[id number] Vancomycin Inj 2,250 MG In NS 522.5 / 522.5 Inj 500 ML @ 250 mls/hr IV.SIG ONCE STA Rx#:[id number] Tazicef Inj 2,000 MG In NS Inj 100 / 100 100 ML @ 200 mls/hr IV.SIG ONCE ONE Rx#:[id number] Narrative: GENERAL: Patient lying in bed. Appears uncomfortable. Alert. Appears to be shivering. SKIN: Warm and dry. Patient with faint maculopapular rash over entire body with small subcentimeter lesions. There is a lesion on the left septum of his nose with a greenish crust, tender to palpation. Patient has a small centimeter wide abrasion on top of periumbilical hernia. Hernia itself is reducible. Does not appear to have any surrounding erythema or purulence. HEAD: Atraumatic. Normocephalic. EYES: Pupils equal and round. No scleral icterus. No injection or drainage. ENT: No nasal bleeding or discharge. Mucous membranes pink and moist. NECK: Trachea midline. No JVD. CARDIOVASCULAR: Regular rate and rhythm. RESPIRATORY: No accessory muscle use. Clear to auscultation. Breath sounds equal bilaterally. GASTROINTESTINAL: Abdomen soft, non-tender, nondistended. Hepatic and splenic margins not palpable. MUSCULOSKELETAL: Extremities without clubbing, cyanosis, or edema. No obvious deformities. NEUROLOGICAL: Awake and alert. No obvious cranial nerve deficits. Motor grossly within normal limits. Five out of 5 muscle strength in the arms and legs. Normal speech. PSYCHIATRIC: Appropriate mood and affect; insight and judgment normal. Results - Labs CBC & Chem 7: 09/25/18 21:45 09/25/18 23:00 Labs: Short CBC 09/25/18 Range/Units 21:45 WBC 2.8 L (4.0-11.0) th/mm3 Hgb 14.1 (13.0-17.0) gm/dL Hct 39.4 (39.0-51.0) % Plt Count 84 L (150-450) th/mm3 BMP 09/25/18 23:00 Sodium 140 Potassium 4.1 Chloride 108 H Carbon Dioxide 24.4 BUN 15 Creatinine 0.88 Calcium 8.6 Liver Function 09/25/18 Range/Units 23:00 Total Bilirubin 0.5 (0.2-1.0) mg/dL AST 121 H (15-37) U/L ALT 53 (12-78) U/L Alkaline Phosphatase 44 L (45-117) U/L Albumin 2.8 L (3.4-5.0) g/dL Urine 09/26/18 Range/Units 01:10 Urine Color Valerie (Yellw/Straw) Urine Clarity Hazy H (Clear) Urine pH 6.0 (5.0-8.5) Ur Specific Stow 1.025 (1.002-1.035) Urine Protein 500 or greater (Neg-Trace) mg/dL Urine Glucose (UA) Negative (Negative) mg/dL - Imaging Impressions Chest X-Ray 09/25/18 21:26 CONCLUSION: No acute cardiopulmonary disease. There is no evidence of pneumonia. Head CT 09/25/18 21:26 CONCLUSION: 1. Negative noncontrast head CT. . Caprini VTE Risk Assessment Caprini VTE Risk Assessment: No/Low Risk (score <= 1) Caprini Risk Assessment Model: Point Value = 1 Point Value = 2 Point Value = 3 Point Value = 5 Age 41-60 Minor surgery BMI > 25 kg/m2 Swollen legs Varicose veins or History of unexplained or recurrent spontaneous Oral contraceptives or hormone replacement Sepsis (< 1 month) Serious lung disease, including pneumonia (< 1 month) Abnormal pulmonary function Acute myocardial infarction Congestive heart failure (< 1 month) History of inflammatory bowel disease Medical patient at bed rest Age 61-74 Arthroscopic surgery Major open surgery (> 45 min) Laparoscopic surgery (> 45 min) Malignancy Confined to bed (> 72 hours) Immobilizing plaster cast Central venous access Age >= 75 History of VTE Family history of VTE Factor V Leiden Prothrombin [id number] Lupus anticoagulant Anticardiolipin antibodies Elevated serum homocysteine Heparin-induced thrombocytopenia Other congenital or acquired thrombophilia Stroke (< 1 month) Elective arthroplasty Hip, pelvis, or leg fracture Acute spinal cord injury (< 1 month) Prophylaxis Regimen: Total Risk Factor Score Risk Level Prophylaxis Regimen 0-1 Low Early ambulation 2 Moderate Order ONE of the following: *Sequential Compression Device (SCD) *Heparin 5000 units SQ BID 3-4 Higher Order ONE of the following medications: *Heparin 5000 units SQ TID *Enoxaparin/Lovenox 40 mg SQ daily (WT < 150 kg, CrCl > 30 mL/min) *Enoxaparin/Lovenox 30 mg SQ daily (WT < 150 kg, CrCl > 10-29 mL/min) *Enoxaparin/Lovenox 30 mg SQ BID (WT < 150 kg, CrCl > 30 mL/min) AND/OR *Sequential Compression Device (SCD) 5 or more Highest Order ONE of the following medications: *Heparin 5000 units SQ TID (Preferred with Epidurals) *Enoxaparin/Lovenox 40 mg SQ daily (WT < 150 kg, CrCl > 30 mL/min) *Enoxaparin/Lovenox 30 mg SQ daily (WT < 150 kg, CrCl > 10-29 mL/min) *Enoxaparin/Lovenox 30 mg SQ BID (WT < 150 kg, CrCl > 30 mL/min) AND *Sequential Compression Device (SCD) Assessment and Plan - Plan //Acute sepsis in immunocompromise patient //Suspected meningitis in immunocompromised patient. Previous history of meningitis reported. //HIV. On compliant with medications. Most recent CD4 count of 20. -Leukopenia of 2.8, tachycardia in the 120s, fever of 103.1. -Unfortunately unable to perform LP in ER. -CT head with no acute findings. -Abdomen pelvis CT is pending. -We will place on broad-spectrum antibiotics with cefepime, ampicillin, vancomycin. Will give single dose of amphotericin B due to AIDS status, peripheral rash with the appearance of possibly disseminated cryptococcus.. ID consulted. Follow-up blood cultures. //Transaminitis //History of hepatitis C Likely chronic. Monitor. //History of diabetes mellitus. Insulin sliding scale. Monitor sugars. //Microscopic hematuria. Abdomen pelvis CT is pending. //Chronic conditions of anxiety, bipolar disorder, depression. Await home medication reconciliation. Discussed Condition With: Patient, nurse, ED physician.
--- NOTE | 2018-09-26 04:58 | CT ---
EXAM DATE: 09/26/2018 4:20 AM EST AGE/SEX: 48 years / Male INDICATIONS: Abdominal pain, hematuria. CLINICAL DATA: This is the patient's initial encounter. Patient reports that signs and symptoms have been present for 1 day and indicates a pain score of 5/10. MEDICAL/SURGICAL HISTORY: Hepatitis C. HIV. Chronic obstructive pulmonary disease. None. RADIATION DOSE: 10.77 CTDI (mGy) COMPARISON: [facility] [place] ABDOMEN & PELVIS W CONTRAST, 08/22/2018. . TECHNIQUE: Multiple contiguous axial images were obtained through the abdomen. Images were obtained using multiple row detector helical technique. Using automated exposure control and adjustment of the mA and/or kV according to patient size, radiation dose was kept as low as reasonably achievable to o btain optimal diagnostic quality images. DICOM format image data is available electronically for rev iew and comparison. FINDINGS: Lower Lungs: The visualized lower lungs are clear. Liver: The liver has a homogeneous density without space-occupying lesion. There is no dilation of th e biliary tree. Tiny gallstones Spleen: Moderate splenomegaly Pancreas: Unremarkable without mass or calcification. Kidneys: Small nonobstructing stones in the lateral midpole and lower pole collecting system of the left kidney. Bilateral renal cysts no evidence of ureteral stone or hydronephrosis. Adrenal Glands: Unremarkable. Aorta: The aorta and proximal iliac vessels are grossly unremarkable without aneurysmal dilation. Bowel/Mesentery: The bowel loops are grossly unremarkable. The cecum and sigmoid colon have a normal configuration. Abdominal Wall: Large fat-containing umbilical hernia Retroperitoneum: Small deep pelvic lymph nodes present. No adenopathy by CT size criteria Bladder: Contours are smooth. Reproductive Organs: Benign-appearing calcified mass in the rectovesical space just left of midline. Inguinal: The inguinal region is unremarkable without evidence of adenopathy. Bony Structures: Unremarkable. CONCLUSION: 1. Nonobstructing left renal stones. Renal cysts. 2. Splenomegaly 3. Fat-containing umbilical hernia. Electronically signed by: Zheng Bernstein MD 09/26/2018 4:56 AM EST
[2018-09-26] MEDS ORDERED: AMPHOTERICIN B LIPOSOMAL IV.SIG ONE ×2 (05:00)
[2018-09-26] MEDS ORDERED: DEXTROSE 5% IV.SIG ONE ×2 (05:00)
[2018-09-26] MEDS ORDERED: WATER IV.SIG ONE ×2 (05:00)
[2018-09-26] MEDS ORDERED: Naloxone Inj 0.4 MG/ML Vial IV.PUSH PRN (05:16)
[2018-09-26] MEDS ORDERED: AMPHOTERICIN B IV.SIG ONE ×2 (06:30)
[2018-09-26] MEDS ORDERED: [UNRECOGNIZED DRUG - OTHER] IV.SIG ONE ×2 (06:30)
[2018-09-26] MEDS: Insulin NovoLOG Aspart Correctional Sugar Inj SQ SCH ×5 (07:55→21:32)
[2018-09-26] MEDS: Vancomycin Inj 1,750 MG in Sodium Chlor 0.9% Inj 500 ML IV.SIG SCH ×2 (11:22→23:32)
--- NOTE | 2018-09-26 16:08 | MB ---
cc: Pop Toribio MD DATE: 09/26/2018 REQUESTING PHYSICIAN: Shabbir Talbert. REASON: Suspected meningitis. HISTORY OF PRESENT ILLNESS: This is a 48-year-old white male with HIV disease and low CD4 count. The patient came to the emergency department for evaluation of headache. He states that the headache began 5 days ago and persisted and he had some neck stiffness and therefore he felt likely that he had meningitis. He reports that he had meningitis in his 20s and that he felt as if his symptoms were similar. He had a low-grade fever as well and some diarrhea. He reports that the headache is in the left temporal area of the head. He also states that he has felt that he may have been bitten by an insect prior to the start of the headache. He reports that the insect bite is located at the left temporal area where he points to the headache as well. The patient appears to be a poor historian. He states that he had no nausea, vomiting, fever, chills, or shortness of breath. The previous medical record notes report that he had nausea and vomiting for 2 days before presenting to the emergency department. He also notes that his temperature max was 103.2 degrees at home. His temperature in the emergency department was 100.3 and then it was to 102.7 early this morning, 103 also early this morning. He denies other symptoms. Currently, he has some redness of the skin with a maculopapular rash visible. He denies itching. He tells me that he had no skin rash before admission. CT scan of the abdomen and pelvis was performed. There was no kidney stones noted. Splenomegaly was noted. A large fat-containing umbilical hernia was noted. Blood culture was obtained and the result is pending. Throat culture for strep is negative. Influenza test is negative. White blood cell count is 2.8. The patient had attempted lumbar puncture, which was unsuccessful. He tells me that he will not allow another lumbar puncture to be performed. The patient had admission for headaches in August and also in April 2018 and workup was negative. PAST MEDICAL HISTORY: Bipolar disorder, anxiety disorder, hepatitis C, depression, neuropathy, Pneumocystis pneumonia, posttraumatic stress disorder. ALLERGIES: HALDOL. MEDICATIONS: 1. Cefepime. 2. Vancomycin. 3. Ampicillin. 4. Oxycodone. SOCIAL HISTORY: The patient smokes a pack of cigarettes a day. Denies alcohol use. Positive marijuana use. He is on disability. FAMILY HISTORY: Noncontributory. REVIEW OF SYSTEMS: All systems have been reviewed and pertinent features mentioned in history of present illness. PHYSICAL EXAMINATION: GENERAL: This is a moderately obese male who is in no acute distress. VITAL SIGNS: Temperature 98.2, BP 103/57, respirations 16, heart rate 82. HEENT: Head atraumatic. Extraocular movements grossly intact. Pupils reactive to light. No icterus. No conjunctival erythema. Oropharynx: Moist mucosa. No thrush. No visible lesions. NECK: Supple. No adenopathy. No swelling. LUNGS: Clear breath sounds bilaterally. HEART: Regular S1 and S2, without audible murmurs, rubs, or gallops. ABDOMEN: Obese, soft, positive bowel sounds, nontender. RECTAL: Not performed. EXTREMITIES: No clubbing, cyanosis, or edema. SKIN: Diffuse maculopapular rash, which is confluent on the back and involves the face, neck, abdomen, trunk, and extremities. NEUROLOGIC: No gross focal finding. PSYCHIATRIC: The patient is calm and cooperative. LABORATORY DATA: WBC 2.8, platelets 84, hemoglobin 14.1, 66% neutrophils, 10% lymphocytes, 19% monocytes. Creatinine 0.88. Estimated GFR 89, AST 121, ALT 53, alkaline phosphatase 44. Urinalysis unremarkable. CD4 cell count less than 20. Cryptococcal antigen screen pending. Previous cryptococcal antigen screen on 08/22/2018 was negative. RPR on 08/22/[address] scan of the head was negative. Chest x-ray showed no evidence of cardiopulmonary disease. IMPRESSION: 1. Headache and fever in patient with human immunodeficiency virus/acquired immune deficiency syndrome and reported neck stiffness. 2. Diffuse rash, probably secondary to medication. The patient states that the rash was not present when he came to the emergency department. The patient is concerned about possible meningitis. However, to determine whether he has meningitis, a lumbar puncture is necessary. He adamantly refuses to have a lumbar puncture attempted again. He was made aware that we cannot determine whether he has meningitis without the information from a lumbar puncture. He expresses that he understands that, but would not allow a lumbar puncture to be performed. RECOMMENDATIONS: 1. Give empiric treatment for a headache with Diflucan, ceftriaxone, and continue vancomycin for now. 2. Discontinue cefepime and discontinue ampicillin. 3. Monitor the drug rash. 4. Monitor blood cultures. 5. Obtain serology for HSV. 6. Follow clinical course and follow the temperature. Thank you for this consultation. I will monitor the patient's progress along with you and will make further recommendations on followup. The patient has decided against treatment for HIV. He states that he does not want to be on any medications to treat the virus. Thank you for this consultation. I will follow the patient's progress along with you. Pop Toribio MD FFD/ts , 03:05 PM , 03:24 PM
[2018-09-27] MEDS: Sod Chloride 0.9% Inj 1,000 ML IV.CONT SCH ×2 (01:12→14:29)
[2018-09-27] MEDS: Acetaminophen 325 MG Tablet PO PRN (05:24)
[2018-09-27 07:40] LABS: Baso % (Auto) 0.6 % (0.0-2.0); Eos # (Auto) 0.3 th/mm3 (0.0-0.4); Eos % (Auto) 10.7 % (0.0-4.0); Hematocrit 28.9 % (39.0-51.0); Hemoglobin 10.4 gm/dL (13.0-17.0); Lymph # (Auto) 0.4 th/mm3 (1.0-4.8); Lymph % (Auto) 14.6 % (9.0-44.0); Mean Corpuscular Hemoglobin 33.1 pg (27.0-34.0); Mean Corpuscular Volume 91.7 fL (80.0-100.0); Mean Platelet Volume 9.7 fL (7.0-11.0); Mono # (Auto) 0.3 th/mm3 (0.0-0.9); Mono % (Auto) 11.7 % (0.0-8.0); Neut # (Auto) 1.6 th/mm3 (1.8-7.7); Neut % (Auto) 62.4 % (16.0-70.0); Platelet Count 53 th/mm3 (150-450); Red Blood Count 3.15 mil/mm3 (4.50-5.90); Red Cell Distribution Width 14.7 % (11.6-17.2); White Blood Count 2.5 th/mm3 (4.0-11.0)
[2018-09-27 07:44] LABS: Mean Corpuscular HGB Conc 36.1 % (32.0-36.0)
[2018-09-27 08:22] LABS: Albumin 2.2 g/dL (3.4-5.0); Calcium 6.6 mg/dL (8.5-10.1); Potassium 3.3 meq/L (3.5-5.1)
[2018-09-27 08:24] LABS: Eosinophils 1 % (0-4); Lymphocytes 6 % (9-44); Monocytes 5 % (0-8)
[2018-09-27 08:25] LABS: Platelet Morphology Normal (Normal)
[2018-09-27] MEDS: Insulin NovoLOG Aspart Correctional Sugar Inj SQ SCH ×4 (10:35→20:06)
[2018-09-27] MEDS: Vancomycin Inj 1,750 MG in Sodium Chlor 0.9% Inj 500 ML IV.SIG SCH ×2 (10:54→22:14)
[2018-09-27] MEDS ORDERED: Melatonin 5 MG Tablet PO PRN (10:54)
--- NOTE | 2018-09-27 10:56 | P.PNIM ---
Subjective Interval history: Pain remains. Patient reports current pain treatments are enough to control his pain. He complains of diarrhea today. Physical Exam Vital signs: Vital Signs 09/26/18 11:28 09/26/18 16:00 09/26/18 16:19 Temperature 98.3 F Pulse Rate 82 75 Respiratory Rate 16 20 18 Blood Pressure 103/57 L 117/58 L Pulse Oximetry 98 94 L 09/26/18 20:00 09/27/18 00:00 09/27/18 04:00 Temperature 102.7 F H 98.2 F 99 F Pulse Rate 111 H 101 H 91 H Respiratory Rate 18 18 18 Blood Pressure 126/63 98/55 L 91/50 L Pulse Oximetry 95 93 L 94 L 09/27/18 08:00 Temperature 98.6 F Pulse Rate 86 Respiratory Rate 18 Blood Pressure 88/50 L Pulse Oximetry 94 L Intake & Output 09/26/18 09/27/18 09/27/18 18:59 06:59 18:59 Intake Total 2167.5 / 2167.5 1817.5 / 1817.5 Output Total 1600 / 1600 1800 / 1800 Balance 567.5 / 567.5 17.5 / 17.5 Weight 102.6 kg Intake: IV 2167.5 / 2167.5 1817.5 / 1817.5 NS Inj 1,000 ML @ 100 mls/hr IV 1000 / 1000 1000 / 1000 .CONT .Q10H [facility] Rx#:[id number] Amphotericin B Conv. Inj 100 MG 250 / 250 In D5W Inj 250 ML @ 125 mls/hr IV.SIG ONCE ONE Rx#:[id number] Ampicillin Inj 2,000 MG In NS 200 / 200 Inj 100 ML @ 400 mls/hr IV.SIG Q4H [facility] Rx#:[id number] Maxipime Inj 2,000 MG In NS Inj 100 / 100 100 ML @ 200 mls/hr IV.SIG Q8H [facility] Rx#:[id number] Diflucan 400 mg Premix Bag 200 200 / 200 ML @ 100 mls/hr IV.SIG Q24H [facility] Rx#:[id number] Vancomycin Inj 1,750 MG In NS 517.5 / 517.5 517.5 / 517.5 Inj 500 ML @ 250 mls/hr IV.SIG Q12H [facility] Rx#:[id number] Rocephin Inj 2,000 MG In NS Inj 100 / 100 100 / 100 100 ML @ 200 mls/hr IV.SIG Q12H [facility] Rx#:[id number] Output: Urine 1600 / 1600 1800 / 1800 Other: Date of Last Bowel Movement 09/25/18 09/26/18 Narrative: GENERAL: NAD, A&Ox3 HEAD: Normocephalic. NECK: Supple, trachea midline. No lymphadenopathy. EYES: No scleral icterus. No injection or drainage. CARDIOVASCULAR: Regular rate and rhythm without murmurs, gallops, or rubs. RESPIRATORY: Breath sounds equal bilaterally. No accessory muscle use. GASTROINTESTINAL: Abdomen soft, non-tender, nondistended. MUSCULOSKELETAL: No cyanosis, or edema. SKIN: Warm and dry. NEURO: No focal neurological deficits. Results - Labs CBC & Chem 7: 09/27/18 06:04 09/27/18 06:04 Laboratory Results - last 24 hr 09/26/18 09/26/18 09/26/18 10:58 11:34 17:47 WBC RBC Hgb Hct MCV MCH MCHC RDW Plt Count MPV Prelim Diff (Auto) Neut % (Auto) Lymph % (Auto) [place] % (Auto) Eos % (Auto) Baso % (Auto) Neut # (Auto) Lymph # (Auto) [place] # (Auto) Eos # (Auto) Baso # (Auto) WBC Differential Seg Neuts % (Manual) Band Neuts % (Manual) Lymphocytes % (Manual) Monocytes % (Manual) Eosinophils % (Manual) Basophils % (Manual) Abs Neuts (Manual) Differential Comment Platelet Estimate Platelet Morphology Sodium Potassium Chloride Carbon Dioxide Anion Gap BUN Creatinine Estimated GFR POC Glucose 97 133 H Random Glucose Calcium Prot Corrected Calcium Total Bilirubin AST ALT Alkaline Phosphatase Total Protein Albumin Vancomycin Trough 12.0 H 09/26/18 09/27/18 09/27/18 20:19 06:04 06:04 WBC 2.5 L RBC 3.15 L Hgb 10.4 L D Hct 28.9 L MCV 91.7 MCH 33.1 MCHC 36.1 H RDW 14.7 Plt Count 53 L D MPV 9.7 Prelim Diff (Auto) Slide review pending Neut % (Auto) 62.4 Lymph % (Auto) 14.6 [place] % (Auto) 11.7 H Eos % (Auto) 10.7 H Baso % (Auto) 0.6 Neut # (Auto) 1.6 L Lymph # (Auto) 0.[address] # (Auto) 0.3 Eos # (Auto) 0.3 Baso # (Auto) 0.0 WBC Differential Manual diff final Seg Neuts % (Manual) 75 H Band Neuts % (Manual) 12 H Lymphocytes % (Manual) 6 L Monocytes % (Manual) 5 Eosinophils % (Manual) 1 Basophils % (Manual) 1 Abs Neuts (Manual) 2.2 Differential Comment . Platelet Estimate Low L Platelet Morphology Normal Sodium 145 Potassium 3.3 L D Chloride 111 H Carbon Dioxide 23.0 Anion Gap 11 BUN 12 Creatinine 0.93 Estimated GFR 86 L POC Glucose 168 H Random Glucose 82 Calcium 6.6 L* D Prot Corrected Calcium 7.1 L* Total Bilirubin 0.3 AST 56 H ALT 32 Alkaline Phosphatase 33 L Total Protein 6.0 L D Albumin 2.2 L D Vancomycin Trough 09/27/18 07:58 WBC RBC Hgb Hct MCV MCH MCHC RDW Plt Count MPV Prelim Diff (Auto) Neut % (Auto) Lymph % (Auto) [place] % (Auto) Eos % (Auto) Baso % (Auto) Neut # (Auto) Lymph # (Auto) [place] # (Auto) Eos # (Auto) Baso # (Auto) WBC Differential Seg Neuts % (Manual) Band Neuts % (Manual) Lymphocytes % (Manual) Monocytes % (Manual) Eosinophils % (Manual) Basophils % (Manual) Abs Neuts (Manual) Differential Comment Platelet Estimate Platelet Morphology Sodium Potassium Chloride Carbon Dioxide Anion Gap BUN Creatinine Estimated GFR POC Glucose 103 Random Glucose Calcium Prot Corrected Calcium Total Bilirubin AST ALT Alkaline Phosphatase Total Protein Albumin Vancomycin Trough Microbiology 09/25/18 23:30 Throat Group A Streptococcus Screen/Cult - Preliminary No Beta Streptococci isolated at 24 hours 09/25/18 21:40 Blood - Peripheral Aerobic Blood Culture - Preliminary No growth in 1 day 09/25/18 21:40 Blood - Peripheral Anaerobic Blood Culture - Preliminary No growth in 1 day 09/25/18 21:45 Blood - Peripheral Aerobic Blood Culture - Preliminary No growth in 1 day 09/25/18 21:45 Blood - Peripheral Anaerobic Blood Culture - Preliminary No growth in 1 day Assessment and Plan - Assessment (1) Fever Code(s): R50.9 - Fever, unspecified Status: Acute (2) HIV (human immunodeficiency virus infection) Code(s): B20 - Human immunodeficiency virus [HIV] disease Status: Acute - Plan 48-year-old male admitted secondary to sepsis, fever and headache in setting of HIV Acute sepsis Fever of Uncertain Origin Improving Continue to monitor vital signs Continue to treat for infection Suspected meningitis Immunocompromise status HIV Continue coverage with cefepime, ampicillin, vancomycin, antifungals ID following Patient refuses lumbar puncture Diarrhea May be related to antibiotics Screen for C. Diff This may also represent a viral etiology Start probiotic Transaminitis Improved Follow LFTs Diabetes mellitus type 2 Follow blood sugars Insulin sliding scale Diabetic diet Microscopic hematuria No abnormal findings on CT to explain this Anxiety Bipolar disorder Depression No change to baseline treatments DVT prophylaxis SCDs (1) Fever Qualifiers: Fever type: unspecified Qualified Code(s): R50.9 - Fever, unspecified
[2018-09-27] MEDS: Lactobacillus Acidophilus/L. Spores Tablet PO SCH ×2 (14:27→18:18)
[2018-09-27 15:10] LABS: Cryptococcus Ag Screen Negative (Negative)
[2018-09-27] MEDS: Morphine Inj 4 MG/ML Vial IV.PUSH PRN ×2 (15:42→19:49)
--- NOTE | 2018-09-27 15:47 | P.PNID ---
Subjective Remarks: Patient notes that his headache is the same. He has no other complaints. He continues to refuse lumbar puncture reattempt. Asking for pain medication. No fever or chills. White blood cell count and platelets are low. Blood cultures have no growth. HSV antibody and cryptococcus antigen pending. Diffuse rash of the skin appears unchanged. Ampicillin was discontinued. This is a 48-year-old white male with HIV disease and low CD4 count. The patient came to the emergency department for evaluation of headache. He states that the headache began 5 days ago and persisted and he had some neck stiffness and therefore he felt likely that he had meningitis. He reports that he had meningitis in his 20s and that he felt as if his symptoms were similar. He had a low-grade fever as well and some diarrhea. He reports that the headache is in the left temporal area of the head. He also states that he has felt that he may have been bitten by an insect prior to the start of the headache. He reports that the insect bite is located at the left temporal area where he points to the headache as well. The patient appears to be a poor historian. He states that he had no nausea, vomiting, fever, chills, or shortness of breath. The previous medical record notes report that he had nausea and vomiting for 2 days before presenting to the emergency department. He also notes that his temperature max was 103.2 degrees at home. His temperature in the emergency department was 100.3 and then it was to 102.7 The patient had attempted lumbar puncture, which was unsuccessful. He tells me that he will not allow another lumbar puncture to be performed. The patient had admission for headaches in August and also in April 2018 and workup was negative. Allergies/Adverse Reactions: Allergies haloperidol Allergy (Severe, Verified 09/25/18 17:57) Swelling TONGUE SWELLING - Per pt. Objective Vital Signs 09/26/18 16:00 09/26/18 16:19 09/26/18 20:00 Temperature 98.3 F 102.7 F H Pulse Rate 75 111 H Respiratory Rate 20 18 18 Blood Pressure 117/58 L 126/63 Pulse Oximetry 94 L 95 09/27/18 00:00 09/27/18 04:00 09/27/18 08:00 Temperature 98.2 F 99 F 98.6 F Pulse Rate 101 H 91 H 86 Respiratory Rate 18 18 18 Blood Pressure 98/55 L 91/50 L 88/50 L Pulse Oximetry 93 L 94 L 94 L 09/27/18 12:00 Temperature 97.2 F L Pulse Rate 82 Respiratory Rate 18 Blood Pressure 92/55 L Pulse Oximetry 91 L Intake & Output 09/26/18 09/27/18 09/27/18 18:59 06:59 18:59 Intake Total 2167.5 / 2167.5 1817.5 / 1817.5 1000 / 1000 Output Total 1600 / 1600 1800 / 1800 Balance 567.5 / 567.5 17.5 / 17.5 1000 / 1000 Weight 102.6 kg Intake: IV 2167.5 / 2167.5 1817.5 / 1817.5 1000 / 1000 NS Inj 1,000 ML @ 100 mls/hr IV 1000 / 1000 1000 / 1000 1000 / 1000 .CONT .Q10H [facility] Rx#:[id number] Amphotericin B Conv. Inj 100 MG 250 / 250 In D5W Inj 250 ML @ 125 mls/hr IV.SIG ONCE ONE Rx#:[id number] Ampicillin Inj 2,000 MG In NS 200 / 200 Inj 100 ML @ 400 mls/hr IV.SIG Q4H [facility] Rx#:[id number] Maxipime Inj 2,000 MG In NS Inj 100 / 100 100 ML @ 200 mls/hr IV.SIG Q8H [facility] Rx#:[id number] Diflucan 400 mg Premix Bag 200 200 / 200 ML @ 100 mls/hr IV.SIG Q24H [facility] Rx#:[id number] Vancomycin Inj 1,750 MG In NS 517.5 / 517.5 517.5 / 517.5 Inj 500 ML @ 250 mls/hr IV.SIG Q12H [facility] Rx#:[id number] Rocephin Inj 2,000 MG In NS Inj 100 / 100 100 / 100 100 ML @ 200 mls/hr IV.SIG Q12H [facility] Rx#:[id number] Output: Urine 1600 / 1600 1800 / 1800 Other: Date of Last Bowel Movement 09/25/18 09/26/18 09/25/18 23:30 Throat Group A Streptococcus Screen/Cult - Final No Beta Streptococci isolated. 09/25/18 21:40 Blood - Peripheral Aerobic Blood Culture - Preliminary No growth in 2 days 09/25/18 21:40 Blood - Peripheral Anaerobic Blood Culture - Preliminary No growth in 2 days 09/25/18 21:45 Blood - Peripheral Aerobic Blood Culture - Preliminary No growth in 2 days 09/25/18 21:45 Blood - Peripheral Anaerobic Blood Culture - Preliminary No growth in 2 days 09/25/18 23:30 Nasal Wash Influenza Types A,B Antigen - Final Negative for FLU A and B antigen Infection due to influenza A or B cannot be ruled out since the antigen present in the sample may be below the detection limit of the test. 09/25/18 23:30 Throat Group A Streptococcus Screen ([facility]) - Final Lab - Hematology Results 09/25/18 09/27/18 21:45 06:04 WBC 2.8 L 2.5 L RBC 4.35 L 3.15 L Hgb 14.1 10.4 L D Hct 39.4 28.9 L MCV 90.6 91.7 MCH 32.5 33.1 MCHC 35.8 36.1 H RDW 14.5 14.7 Plt Count 84 L 53 L D MPV 10.1 9.7 Prelim Diff (Auto) Slide review pending Slide review pending Neut % (Auto) 66.1 62.4 Lymph % (Auto) 10.8 14.6 [place] % (Auto) 19.1 H 11.7 H Eos % (Auto) 3.4 10.7 H Baso % (Auto) 0.6 0.6 Neut # (Auto) 1.9 1.6 L Lymph # (Auto) 0.3 L 0.4 L [place] # (Auto) 0.5 0.3 Eos # (Auto) 0.1 0.3 Baso # (Auto) 0.0 0.0 WBC Differential . Manual diff final Diff Scan Auto diff confirmed Seg Neuts % (Manual) 75 H Band Neuts % (Manual) 12 H Lymphocytes % (Manual) 6 L Monocytes % (Manual) 5 Eosinophils % (Manual) 1 Basophils % (Manual) 1 Abs Neuts (Manual) 2.2 Differential Comment . . Platelet Estimate Low L Low L Platelet Morphology Enlarged H Normal Ovalocytes 1+ H Lab - Chemistry Results 09/25/18 09/25/18 09/25/18 21:45 23:00 23:00 Sodium 140 Potassium 4.1 Chloride 108 H Carbon Dioxide 24.4 Anion Gap 8 BUN 15 Creatinine 0.88 Estimated GFR Greater than 89 POC Glucose Random Glucose 91 Lactic Acid 1.5 Calcium 8.6 Prot Corrected Calcium Magnesium 1.9 Total Bilirubin 0.5 AST 121 H ALT 53 Alkaline Phosphatase 44 L Total Creatine Kinase 91 Total Protein 9.0 H Albumin 2.8 L 09/26/18 09/26/18 09/26/18 07:55 11:34 17:47 Sodium Potassium Chloride Carbon Dioxide Anion Gap BUN Creatinine Estimated GFR POC Glucose 119 H 97 133 H Random Glucose Lactic Acid Calcium Prot Corrected Calcium Magnesium Total Bilirubin AST ALT Alkaline Phosphatase Total Creatine Kinase Total Protein Albumin 09/26/18 09/27/18 09/27/18 20:19 06:04 07:58 Sodium 145 Potassium 3.3 L D Chloride 111 H Carbon Dioxide 23.0 Anion Gap 11 BUN 12 Creatinine 0.93 Estimated GFR 86 L POC Glucose 168 H 103 Random Glucose 82 Lactic Acid Calcium 6.6 L* D Prot Corrected Calcium 7.1 L* Magnesium Total Bilirubin 0.3 AST 56 H ALT 32 Alkaline Phosphatase 33 L Total Creatine Kinase Total Protein 6.0 L D Albumin 2.2 L D Imaging: ITS Impressions Chest X-Ray 09/25/18 21:26 CONCLUSION: No acute cardiopulmonary disease. There is no evidence of pneumonia. Head CT 09/25/18 21:26 CONCLUSION: 1. Negative noncontrast head CT. . Abdomen/Pelvis CT 09/26/18 02:06 CONCLUSION: 1. Nonobstructing left renal stones. Renal cysts. 2. Splenomegaly 3. Fat-containing umbilical hernia. Physical Exam: PHYSICAL EXAMINATION: GENERAL: No acute distress. Planes of headache. HEENT: Head atraumatic. Extraocular movements grossly intact. Pupils reactive to light. No icterus. No conjunctival erythema. Oropharynx: Moist mucosa. No thrush. No visible lesions. NECK: Supple. No adenopathy. No swelling. LUNGS: Clear breath sounds. HEART: Regular S1 and S2, without audible murmurs, rubs, or gallops. ABDOMEN: Obese, soft, positive bowel sounds, nontender. EXTREMITIES: No clubbing, cyanosis, or edema. SKIN: Diffuse maculopapular rash, which is confluent on the back and involves the face, neck, abdomen, trunk, and extremities. Unchanged. NEUROLOGIC: No gross focal finding. PSYCHIATRIC: Calm and cooperative. Assessment and Plan - Plan IMPRESSION: 1. Headache and fever in patient with human immunodeficiency virus/acquired immune deficiency syndrome and reported neck stiffness. 2. Diffuse rash, probably secondary to medication. The patient states that the rash was not present when he came to the emergency department. The patient is concerned about possible meningitis. However, to determine whether he has meningitis, a lumbar puncture is necessary. He adamantly refuses to have a lumbar puncture attempted again. He was made aware that we cannot determine whether he has meningitis without the information from a lumbar puncture. He expresses that he understands that, but would not allow a lumbar puncture to be performed. RECOMMENDATIONS: 1. Continue empiric Diflucan give empiric treatment for a headache with Diflucan, 2. Stop ceftriaxone. 3. Continue vancomycin. 4. Monitor the rash. 5. Monitor blood cultures. 6. Follow clinical course and follow the temperature. The patient has decided against treatment for HIV. He states that he does not want to be on any medications to treat the virus.
[2018-09-27] MEDS: oxyCODONE/Acetaminophen 10/325 Tablet PO PRN (22:15)
[2018-09-28] MEDS: Morphine Inj 4 MG/ML Vial IV.PUSH PRN ×6 (00:15→21:48)
[2018-09-28] MEDS: Sod Chloride 0.9% Inj 1,000 ML IV.CONT SCH ×6 (00:16→22:18)
[2018-09-28] MEDS: oxyCODONE/Acetaminophen 10/325 Tablet PO PRN ×6 (02:25→23:39)
[2018-09-28 08:26] LABS: Baso % (Auto) 0.3 % (0.0-2.0); Eos # (Auto) 0.4 th/mm3 (0.0-0.4); Hematocrit 29.3 % (39.0-51.0); Hemoglobin 10.2 gm/dL (13.0-17.0); Lymph # (Auto) 0.4 th/mm3 (1.0-4.8); Lymph % (Auto) 20.1 % (9.0-44.0); Mean Corpuscular HGB Conc 34.9 % (32.0-36.0); Mean Corpuscular Hemoglobin 32.6 pg (27.0-34.0); Mean Corpuscular Volume 93.3 fL (80.0-100.0); Mean Platelet Volume 9.6 fL (7.0-11.0); Mono # (Auto) 0.2 th/mm3 (0.0-0.9); Mono % (Auto) 11.5 % (0.0-8.0); Neut # (Auto) 0.9 th/mm3 (1.8-7.7); Neut % (Auto) 48.1 % (16.0-70.0); Platelet Count 55 th/mm3 (150-450); Red Blood Count 3.14 mil/mm3 (4.50-5.90)
[2018-09-28] MEDS: Insulin NovoLOG Aspart Correctional Sugar Inj SQ SCH ×2 (08:45→11:09)
[2018-09-28] MEDS: Lactobacillus Acidophilus/L. Spores Tablet PO SCH ×3 (08:45→17:34)
[2018-09-28 08:58] LABS: Eosinophils 16 % (0-4); Lymphocytes 19 % (9-44); Monocytes 7 % (0-8); Platelet Morphology Normal (Normal); RBC Morphology Normal (Normal)
[2018-09-28 09:13] LABS: Cryptococcus Ag Screen Negative (Negative)
[2018-09-28 09:14] LABS: Alanine Aminotransferase 32 U/L (12-78); Albumin 2.2 g/dL (3.4-5.0); Alkaline Phosphatase 34 U/L (45-117); Anion Gap 6 meq/L (5-15); Aspartate Aminotransferase 56 U/L (15-37); Blood Urea Nitrogen 10 mg/dL (7-18); Carbon Dioxide 26.2 meq/L (21.0-32.0); Chloride 114 meq/L (98-107); Glomerular Filtration Rate Greater Than 89 mL/min (>89); Glucose,Random 80 mg/dL (74-106); Potassium 3.3 meq/L (3.5-5.1); Sodium 146 meq/L (136-145); Total Protein 6.3 g/dL (6.4-8.2)
[2018-09-28] MEDS ORDERED: ALPRAZolam 0.5 MG Tablet PO ONE (10:41)
[2018-09-28] MEDS ORDERED: Pharmacy Ordered Lab Info OTHER ONE (10:45)
--- NOTE | 2018-09-28 10:47 | P.PNIM ---
Subjective Interval history: Patient is still having chills, however his fever pattern has shown improvement through time. Headache is still present. He complains of poor sleeping. Lab work this morning shows low calcium and low potassium. Physical Exam Vital signs: Vital Signs 09/27/18 12:00 09/27/18 15:43 09/27/18 15:51 Temperature 97.2 F L Pulse Rate 82 Respiratory Rate 18 16 16 Blood Pressure 92/55 L Pulse Oximetry 91 L 09/27/18 16:00 09/27/18 20:00 09/28/18 00:00 Temperature 98.0 F 97.9 F 97.8 F Pulse Rate 84 77 74 Respiratory Rate 18 18 18 Blood Pressure 101/55 L 111/55 L 108/55 L Pulse Oximetry 94 L 94 L 91 L 09/28/18 04:00 09/28/18 07:00 09/28/18 07:26 Temperature 97.8 F 97.9 F Pulse Rate 108 H 72 Respiratory Rate 18 12 20 Blood Pressure 109/68 103/59 L Pulse Oximetry 92 L 93 L Intake & Output 09/27/18 09/28/18 09/28/18 18:59 06:59 18:59 Intake Total 2317.5 / 2317.5 1517.5 / 1517.5 Output Total 800 / 800 Balance 1517.5 / 1517.5 1517.5 / 1517.5 Weight 101.8 kg 101.8 kg Intake: IV 1817.5 / 1817.5 1517.5 / 1517.5 NS Inj 1,000 ML @ 100 mls/hr IV 1000 / 1000 1000 / 1000 .CONT .Q10H [facility] Rx#:[id number] Diflucan 400 mg Premix Bag 200 200 / 200 ML @ 100 mls/hr IV.SIG Q24H [facility] Rx#:[id number] Vancomycin Inj 1,750 MG In NS 517.5 / 517.5 517.5 / 517.5 Inj 500 ML @ 250 mls/hr IV.SIG Q12H [facility] Rx#:[id number] Rocephin Inj 2,000 MG In NS Inj 100 / 100 100 ML @ 200 mls/hr IV.SIG Q12H [facility] Rx#:[id number] Oral 500 / 500 Output: Urine 800 / 800 Other: # Voids 3 Date of Last Bowel Movement 09/25/18 09/26/18 Weight On Admission 102.6 kg Narrative: GENERAL: NAD, A&Ox3 HEAD: Normocephalic. NECK: Supple, trachea midline. No lymphadenopathy. EYES: No scleral icterus. No injection or drainage. CARDIOVASCULAR: Regular rate and rhythm without murmurs, gallops, or rubs. RESPIRATORY: Breath sounds equal bilaterally. No accessory muscle use. GASTROINTESTINAL: Abdomen soft, non-tender, nondistended. MUSCULOSKELETAL: No cyanosis, or edema. SKIN: Warm and dry. NEURO: No focal neurological deficits. Results - Labs CBC & Chem 7: 09/28/18 08:00 09/28/18 08:00 Laboratory Results - last 24 hr 09/26/18 09/27/18 09/27/18 04:20 06:04 17:36 WBC RBC Hgb Hct MCV MCH MCHC RDW Plt Count MPV Prelim Diff (Auto) Neut % (Auto) Lymph % (Auto) [place] % (Auto) Eos % (Auto) Baso % (Auto) Neut # (Auto) Lymph # (Auto) [place] # (Auto) Eos # (Auto) Baso # (Auto) WBC Differential Seg Neuts % (Manual) Band Neuts % (Manual) Lymphocytes % (Manual) Monocytes % (Manual) Eosinophils % (Manual) Abs Neuts (Manual) Differential Comment Platelet Estimate Platelet Morphology RBC Morphology Sodium Potassium Chloride Carbon Dioxide Anion Gap BUN Creatinine Estimated GFR POC Glucose 123 H Random Glucose Calcium Prot Corrected Calcium Total Bilirubin AST ALT Alkaline Phosphatase Total Protein Albumin Cryptococcus Ag Screen Negative Negative 09/27/18 09/28/18 09/28/18 19:51 08:00 08:00 WBC 2.0 L RBC 3.14 L Hgb 10.2 L Hct 29.3 L MCV 93.3 MCH 32.6 MCHC 34.9 RDW 15.0 Plt Count 55 L MPV 9.6 Prelim Diff (Auto) Slide review pending Neut % (Auto) 48.1 Lymph % (Auto) 20.1 [place] % (Auto) 11.5 H Eos % (Auto) 20.0 H Baso % (Auto) 0.3 Neut # (Auto) 0.9 L Lymph # (Auto) 0.4 L [place] # (Auto) 0.2 Eos # (Auto) 0.4 Baso # (Auto) 0.0 WBC Differential Manual diff final Seg Neuts % (Manual) 57 Band Neuts % (Manual) 1 Lymphocytes % (Manual) 19 Monocytes % (Manual) 7 Eosinophils % (Manual) 16 H Abs Neuts (Manual) 1.2 L Differential Comment . Platelet Estimate Low L Platelet Morphology Normal RBC Morphology Normal Sodium 146 H Potassium 3.3 L Chloride 114 H Carbon Dioxide 26.2 Anion Gap 6 BUN 10 Creatinine 0.79 Estimated GFR Greater than 89 POC Glucose 154 H Random Glucose 80 Calcium 7.0 L* Prot Corrected Calcium 7.4 L* Total Bilirubin 0.2 AST 56 H ALT 32 Alkaline Phosphatase 34 L Total Protein 6.3 L Albumin 2.2 L Cryptococcus Ag Screen 09/28/18 08:45 WBC RBC Hgb Hct MCV MCH MCHC RDW Plt Count MPV Prelim Diff (Auto) Neut % (Auto) Lymph % (Auto) [place] % (Auto) Eos % (Auto) Baso % (Auto) Neut # (Auto) Lymph # (Auto) [place] # (Auto) Eos # (Auto) Baso # (Auto) WBC Differential Seg Neuts % (Manual) Band Neuts % (Manual) Lymphocytes % (Manual) Monocytes % (Manual) Eosinophils % (Manual) Abs Neuts (Manual) Differential Comment Platelet Estimate Platelet Morphology RBC Morphology Sodium Potassium Chloride Carbon Dioxide Anion Gap BUN Creatinine Estimated GFR POC Glucose 89 Random Glucose Calcium Prot Corrected Calcium Total Bilirubin AST ALT Alkaline Phosphatase Total Protein Albumin Cryptococcus Ag Screen Microbiology 09/25/18 23:30 Throat Group A Streptococcus Screen/Cult - Final No Beta Streptococci isolated. 09/25/18 21:40 Blood - Peripheral Aerobic Blood Culture - Preliminary No growth in 2 days 09/25/18 21:40 Blood - Peripheral Anaerobic Blood Culture - Preliminary No growth in 2 days 09/25/18 21:45 Blood - Peripheral Aerobic Blood Culture - Preliminary No growth in 2 days 09/25/18 21:45 Blood - Peripheral Anaerobic Blood Culture - Preliminary No growth in 2 days Assessment and Plan - Assessment (1) Fever Code(s): R50.9 - Fever, unspecified Status: Acute (2) HIV (human immunodeficiency virus infection) Code(s): B20 - Human immunodeficiency virus [HIV] disease Status: Acute - Plan 48-year-old male admitted secondary to sepsis, fever and headache in setting of HIV Diarrhea is still present. Hypocalcemia and hypokalemia present. Hypokalemia Hypocalcemia Monitor and replace as needed Acute sepsis Fever of Uncertain Origin Improving Continue to monitor vital signs Continue to treat for infection Suspected meningitis Immunocompromise status HIV Continue Diflucan, Rocephin, and vancomycin. ID following Patient refuses lumbar puncture Diarrhea May be related to antibiotics Screen for C. Diff pending This may also represent a viral etiology Start probiotic Transaminitis Improved Follow LFTs Diabetes mellitus type 2 Follow blood sugars Insulin sliding scale Diabetic diet Microscopic hematuria No abnormal findings on CT to explain this Anxiety Bipolar disorder Depression No change to baseline treatments DVT prophylaxis SCDs (1) Fever Qualifiers: Fever type: unspecified Qualified Code(s): R50.9 - Fever, unspecified
[2018-09-28] MEDS: Vancomycin Inj 1,750 MG in Sodium Chlor 0.9% Inj 500 ML IV.SIG SCH ×2 (11:05→21:59)
[2018-09-28] MEDS ORDERED: QUEtiapine 25 MG Tablet PO ONE (23:22)
[2018-09-29 07:35] LABS: Baso % (Auto) 0.7 % (0.0-2.0); Eos # (Auto) 0.2 th/mm3 (0.0-0.4); Eos % (Auto) 10.6 % (0.0-4.0); Hematocrit 33.1 % (39.0-51.0); Hemoglobin 11.6 gm/dL (13.0-17.0); Lymph # (Auto) 0.4 th/mm3 (1.0-4.8); Lymph % (Auto) 20.7 % (9.0-44.0); Mean Corpuscular HGB Conc 35.1 % (32.0-36.0); Mean Corpuscular Hemoglobin 32.3 pg (27.0-34.0); Mean Corpuscular Volume 92.2 fL (80.0-100.0); Mono # (Auto) 0.3 th/mm3 (0.0-0.9); Mono % (Auto) 12.5 % (0.0-8.0); Neut # (Auto) 1.2 th/mm3 (1.8-7.7); Neut % (Auto) 55.5 % (16.0-70.0); Platelet Count 74 th/mm3 (150-450); Red Blood Count 3.58 mil/mm3 (4.50-5.90); Red Cell Distribution Width 14.6 % (11.6-17.2); White Blood Count 2.2 th/mm3 (4.0-11.0)
[2018-09-29] MEDS: Morphine Inj 4 MG/ML Vial IV.PUSH PRN ×2 (07:49→23:06)
[2018-09-29] MEDS: Acetaminophen 325 MG Tablet PO PRN (07:49)
[2018-09-29] MEDS: Lactobacillus Acidophilus/L. Spores Tablet PO SCH ×3 (08:00→17:04)
[2018-09-29 08:02] LABS: Albumin 2.6 g/dL (3.4-5.0); Anion Gap 9 meq/L (5-15); Aspartate Aminotransferase 61 U/L (15-37); Blood Urea Nitrogen 5 mg/dL (7-18); Calcium 8.1 mg/dL (8.5-10.1); Carbon Dioxide 24.5 meq/L (21.0-32.0); Chloride 112 meq/L (98-107); Glomerular Filtration Rate Greater Than 89 mL/min (>89); Glucose,Random 85 mg/dL (74-106); Potassium 3.4 meq/L (3.5-5.1); Sodium 145 meq/L (136-145)
[2018-09-29] MEDS: Sod Chloride 0.9% Inj 1,000 ML IV.CONT SCH (08:16)
[2018-09-29 08:22] LABS: Alanine Aminotransferase 34 U/L (12-78); Alkaline Phosphatase 47 U/L (45-117)
[2018-09-29 08:38] LABS: Ovalocytes 1+; Platelet Morphology Normal (Normal); Tear Drop Cells 1+
[2018-09-29] MEDS: Vancomycin Inj 1,750 MG in Sodium Chlor 0.9% Inj 500 ML IV.SIG SCH ×2 (10:19→23:06)
--- NOTE | 2018-09-29 15:52 | P.CONPSY ---
Provisional Diagnosis Admission Date: September 26, 2018 01:02 History of Present Illness Service: psychiatry Consult date: 09/29/18 Reason for Consult: AMS Primary Care Provider: UNKNOWN Chief Complaint: AMS History of Present Illness: This is a request for a psychiatric consult. Documentation was reviewed, case was discussed with nursing and patient was evaluated. Patient is a 48-year-old female with a history of mood disorder and possible intellectual disability. Psychiatric services consulted after patient was seen talking to himself and responding to hallucinations yesterday. Patient has possible meningitis, sepsis as a complication of AIDS. He has been refusing all retroviral treatment for HIV and is refusing a lumbar puncture. Patient has an extensive history of mood disorder with multiple inpatient admissions and suicide attempts. Though, patient has been off his medications for the past 10 years. Patient says he does not like other medications feel and he refuses to take them. He denies depressed mood. He denies active suicidal or homicidal ideation intent or plan. Though; patient says he feels apathetic and does not care if he lives or dies which is why he refuses treatment for AIDS. He also refuses any medications for bipolar disorder or possible depression. He is alert and oriented x4 and is aware of his surroundings and circumstances. Today , nursing has not noticed any responding to internal stimuli. And today patient denies any auditory or visual hallucinations. No specific delusions were elicited. Past psych: 3 suicide attempts via overdose last one 5 years ago. Says he has been diagnosed with bipolar and has been on "a lot of different meds." Past medical: AIDS Past Famhx: Unsure Past Social: Not , no kids, on disability for unknown reason. History of special education. [facility] - History History 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 - Medical History Medical History: Medical History (Last Reviewed 09/29/18 @ 15:50 by Stefano Covarrubias DO) AIDS Anxiety Bipolar 1 disorder COPD (chronic obstructive pulmonary disease) Depression HIV disease Hepatitis C History of MRSA infection Neuropathy PTSD (post-traumatic stress disorder) Pneumocystosis pneumonia Suicidal ideations - Surgical History Surgical History: Surgical History (Last Reviewed 09/29/18 @ 15:50 by Stefano Covarrubias DO) No history of previous surgery - Family History Family History: Family History (Last Reviewed 09/26/18 @ 04:14 by Shabbir Talbert MD) Other Diabetes mellitus - Tobacco History Second Hand Smoke Exposure: Yes Tobacco Use In Past 30 Days: Yes Smoking Status: Current every day smoker Tobacco Type: Cigarettes - Alcohol History How Often Do You Have a Drink Containing Alcohol: Never - Substance Use History Substance History: Past History - Travel History Recent Travel in the [place] Within the Last 8 Weeks: No Recent Travel Out of the Country Within the Last 8 Weeks: No - Immunization History Tetanus Immunization: Unsure Hx Influenza Vaccine This Season: Yes Medications and Allergies Active Medications: Active Medications Acetaminophen (Tylenol) 650 mg PO Q6H PRN PRN Reason: TEMP > 100.7 Last Admin: 09/29/18 07:49 Dose: 650 mg Al Hydroxide/Mg Hydroxide (Milk Of Magnesia Liq) 30 ml PO Q12H PRN PRN Reason: Mild Constipation Bisacodyl (Dulcolax Supp) 10 mg RECTAL DAILY PRN PRN Reason: SEVERE CONSITIPATION Calcium Carbonate (Tums Chew) 500 mg CHEW BID [facility] Stop: 09/30/18 21:00 Last Admin: 09/29/18 08:00 Dose: 500 mg Dextrose (D50w Vial) 50 ml IV.PUSH UNSCH PRN PRN Reason: PER HYPOGLYCEMIA PROTOCOL Glucagon (Glucagon Inj) 1 mg OTHER PRN PRN PRN Reason: for Hypoglycemia Protocol Sodium Chloride (Ns Inj) 1,000 mls @ 100 mls/hr IV.CONT .Q10H [facility] Last Admin: 09/29/18 08:16 Dose: Not Given Vancomycin HCl 1,750 mg/ (Sodium Chloride) 517.5 mls @ 250 mls/hr IV.SIG Q12H [facility] Last Infusion: 09/29/18 12:03 Dose: Infused Fluconazole (Diflucan 400 Mg Premix Bag) 200 mls @ 100 mls/hr IV.SIG Q24H [facility] Last Infusion: 09/28/18 17:07 Dose: Infused Lactobacillus Acidophilus (Lactinex) 1 tab PO TID [facility] Last Admin: 09/29/18 12:03 Dose: 1 tab Lactulose (Lactulose Liq) 30 ml PO DAILY PRN PRN Reason: SEVERE CONSITIPATION Melatonin (Melatonin) 5 mg PO HS PRN PRN Reason: INSOMNIA Last Admin: 09/27/18 22:15 Dose: 5 mg Morphine Sulfate (Morphine Inj) 2 mg IV.PUSH Q4H PRN PRN Reason: BREAKTHROUGH PAIN Last Admin: 09/29/18 07:49 Dose: 2 mg Naloxone HCl (Narcan Inj) 0.4 mg IV.PUSH UNSCH PRN PRN Reason: SEE LABEL COMMENTS Ondansetron HCl (Zofran Inj) 4 mg IV.PUSH Q6H PRN PRN Reason: NAUSEA OR VOMITING Oxycodone/Acetaminophen (Percocet 10/325 Mg) 1 tab PO Q4H PRN PRN Reason: Pain 7 to 10 Last Admin: 09/28/18 23:39 Dose: 1 tab Oxycodone/Acetaminophen (Percocet 5/325 Mg) 1 tab PO Q4H PRN PRN Reason: Pain 3 to 6 Last Admin: 09/27/18 18:18 Dose: 1 tab Pharmacy Profile Note (Vancomycin Consult Pharmacy) 1 each OTHER UNSCH PRN PRN Reason: Pharmacy to dose Sennosides (Senokot) 17.2 mg PO Q12H PRN PRN Reason: Moderate Constipation Temazepam (Restoril) 7.5 mg PO HS PRN PRN Reason: INSOMNIA Last Admin: 09/28/18 19:49 Dose: 7.5 mg Allergies Allergy/AdvReac Type Severity Reaction Status Date / Time haloperidol Allergy Severe Swelling Verified 09/25/18 17:57 Home Medications Medication Instructions Recorded Confirmed Type No Known Home Medications 09/26/18 09/26/18 History Exam Vital signs: Vital Signs 09/28/18 20:00 09/29/18 00:00 09/29/18 03:15 Temperature 98.7 F 97.9 F Pulse Rate 82 94 H Respiratory Rate 16 20 16 Blood Pressure 123/76 136/95 H Pulse Oximetry 95 94 L 09/29/18 04:00 09/29/18 07:00 09/29/18 07:52 Temperature 97.8 F 101.8 F H Pulse Rate 98 H 104 H Respiratory Rate 22 12 20 Blood Pressure 156/86 H 149/88 H Pulse Oximetry 94 L 96 09/29/18 09:22 09/29/18 11:43 09/29/18 12:05 Temperature 99.3 F Pulse Rate 93 H Respiratory Rate 12 20 12 Blood Pressure 138/73 Pulse Oximetry 98 09/29/18 13:26 09/29/18 15:35 Temperature Pulse Rate Respiratory Rate 12 12 Blood Pressure Pulse Oximetry Intake & Output 09/28/18 09/29/18 09/29/18 18:59 06:59 18:59 Intake Total 3177.5 / 3177.5 1117.5 / 1117.5 917.5 / 917.5 Output Total 300 / 300 200 / 200 Balance 2877.5 / 2877.5 1117.5 / 1117.5 717.5 / 717.5 Weight 104.1 kg Intake: IV 1717.5 / 1717.5 1117.5 / 1117.5 917.5 / 917.5 NS Inj 1,000 ML @ 100 mls/hr IV 1000 / 1000 600 / 600 400 / 400 .CONT .Q10H [facility] Rx#:[id number] Diflucan 400 mg Premix Bag 200 200 / 200 ML @ 100 mls/hr IV.SIG Q24H [facility] Rx#:[id number] Vancomycin Inj 1,750 MG In NS 517.5 / 517.5 517.5 / 517.5 517.5 / 517.5 Inj 500 ML @ 250 mls/hr IV.SIG Q12H [facility] Rx#:[id number] Oral 1460 / 1460 Output: Urine 300 / 300 200 / 200 Other: # Voids 3 # Incontinent Voids 3 Date of Last Bowel Movement 09/28/18 09/28/18 Mental Status Examination Appearance: Disheveled Consciousness: Alert Orientation: x4 Motor Activity: Normal gait Speech: Unremarkable Language: Adequate Fund of Knowledge: Adequate (Borderline intellectual disability) Attention and Concentration: Easily distracted Memory: Unremarkable Mood: Appropriate Affect: Appropriate Thought Process & Associations: Circumstantial Thought Content: Appropriate Hallucination Type: Auditory (Had auditory hallucinations yesterday) Delusion Type: None Suicidal Ideation: No Suicidal Plan: No Suicidal Intention: No Homicidal Ideation: No Homicidal Plan: No Homicidal Intention: No Insight: Poor Judgment: Poor Assessment and Plan - Assessment (1) Unspecified mood [affective] disorder Code(s): F39 - Unspecified mood [affective] disorder Status: Acute - Plan Plan: Estimated LOS: [] days Patient does not meet Leon act criteria at this time given his suicidal thoughts have been chronic for the last 10 years. Patient is oriented x4 and appears to have capacity to make his own decisions. However, I recommend calling his sister for collateral information and exploring of patient has made any suicidal statements to her Justification for Continued Inpatient Stay: Patient would decompensate in a less restrictive setting
[2018-09-29] MEDS ORDERED: ALPRAZolam 0.5 MG Tablet PO PRN (16:00)
--- NOTE | 2018-09-29 16:08 | P.PNIM ---
Subjective Interval history: Effusion is present overnight. Etiology for confusion could be related to temazepam given last night for insomnia. No complaints from patient today. Physical Exam Vital signs: Vital Signs 09/28/18 20:00 09/29/18 00:00 09/29/18 03:15 Temperature 98.7 F 97.9 F Pulse Rate 82 94 H Respiratory Rate 16 20 16 Blood Pressure 123/76 136/95 H Pulse Oximetry 95 94 L 09/29/18 04:00 09/29/18 07:00 09/29/18 07:52 Temperature 97.8 F 101.8 F H Pulse Rate 98 H 104 H Respiratory Rate 22 12 20 Blood Pressure 156/86 H 149/88 H Pulse Oximetry 94 L 96 09/29/18 09:22 09/29/18 11:43 09/29/18 12:05 Temperature 99.3 F Pulse Rate 93 H Respiratory Rate 12 20 12 Blood Pressure 138/73 Pulse Oximetry 98 09/29/18 13:26 09/29/18 15:35 Temperature Pulse Rate Respiratory Rate 12 12 Blood Pressure Pulse Oximetry Intake & Output 09/28/18 09/29/18 09/29/18 18:59 06:59 18:59 Intake Total 3177.5 / 3177.5 1117.5 / 1117.5 917.5 / 917.5 Output Total 300 / 300 200 / 200 Balance 2877.5 / 2877.5 1117.5 / 1117.5 717.5 / 717.5 Weight 104.1 kg Intake: IV 1717.5 / 1717.5 1117.5 / 1117.5 917.5 / 917.5 NS Inj 1,000 ML @ 100 mls/hr IV 1000 / 1000 600 / 600 400 / 400 .CONT .Q10H [facility] Rx#:[id number] Diflucan 400 mg Premix Bag 200 200 / 200 ML @ 100 mls/hr IV.SIG Q24H [facility] Rx#:[id number] Vancomycin Inj 1,750 MG In NS 517.5 / 517.5 517.5 / 517.5 517.5 / 517.5 Inj 500 ML @ 250 mls/hr IV.SIG Q12H [facility] Rx#:[id number] Oral 1460 / 1460 Output: Urine 300 / 300 200 / 200 Other: # Voids 3 # Incontinent Voids 3 Date of Last Bowel Movement 09/28/18 09/28/18 Narrative: GENERAL: NAD, A&Ox3 HEAD: Normocephalic. NECK: Supple, trachea midline. No lymphadenopathy. EYES: No scleral icterus. No injection or drainage. CARDIOVASCULAR: Regular rate and rhythm without murmurs, gallops, or rubs. RESPIRATORY: Breath sounds equal bilaterally. No accessory muscle use. GASTROINTESTINAL: Abdomen soft, non-tender, nondistended. MUSCULOSKELETAL: No cyanosis, or edema. SKIN: Warm and dry. NEURO: No focal neurological deficits. Results - Labs CBC & Chem 7: 09/29/18 07:03 09/29/18 07:03 Laboratory Results - last 24 hr 09/29/18 09/29/18 07:03 07:03 WBC 2.2 L RBC 3.58 L Hgb 11.6 L Hct 33.1 L MCV 92.2 MCH 32.3 MCHC 35.1 RDW 14.6 Plt Count 74 L D MPV 9.0 Prelim Diff (Auto) Slide review pending Neut % (Auto) 55.5 Lymph % (Auto) 20.7 [place] % (Auto) 12.5 H Eos % (Auto) 10.6 H Baso % (Auto) 0.7 Neut # (Auto) 1.2 L Lymph # (Auto) 0.4 L [place] # (Auto) 0.3 Eos # (Auto) 0.2 Baso # (Auto) 0.0 WBC Differential . Diff Scan Auto diff confirmed Differential Comment . Platelet Estimate Low L Platelet Morphology Normal Tear Drop Cells 1+ H Ovalocytes 1+ H Sodium 145 Potassium 3.4 L Chloride 112 H Carbon Dioxide 24.5 Anion Gap 9 BUN 5 L Creatinine 0.78 Estimated GFR Greater than 89 Random Glucose 85 Calcium 8.1 L D Total Bilirubin 0.5 AST 61 H ALT 34 Alkaline Phosphatase 47 Total Protein 7.0 D Albumin 2.6 L Microbiology 09/25/18 21:40 Blood - Peripheral Aerobic Blood Culture - Preliminary No growth in 4 days 09/25/18 21:40 Blood - Peripheral Anaerobic Blood Culture - Preliminary No growth in 4 days 09/25/18 21:45 Blood - Peripheral Aerobic Blood Culture - Preliminary No growth in 4 days 09/25/18 21:45 Blood - Peripheral Anaerobic Blood Culture - Preliminary No growth in 4 days Assessment and Plan - Assessment (1) Fever Code(s): R50.9 - Fever, unspecified Status: Acute (2) HIV (human immunodeficiency virus infection) Code(s): B20 - Human immunodeficiency virus [HIV] disease Status: Acute - Plan 48-year-old male admitted secondary to sepsis, fever and headache in setting of HIV Diarrhea is still present. Stool studies pending. Insomnia treatment downgraded to Xanax 0.5 mg nightly instead of temazepam as temazepam could have caused confusion this morning. Hypokalemia Hypocalcemia Monitor and replace as needed Acute sepsis Fever of Uncertain Origin Improving Continue to monitor vital signs Continue to treat for infection Suspected meningitis Immunocompromise status HIV Continue Diflucan, Rocephin, and vancomycin. ID following Patient refuses lumbar puncture Diarrhea May be related to antibiotics Screen for C. Diff pending This may also represent a viral etiology Start probiotic Transaminitis Improved Follow LFTs Diabetes mellitus type 2 Follow blood sugars Insulin sliding scale Diabetic diet Microscopic hematuria No abnormal findings on CT to explain this Anxiety Bipolar disorder Depression No change to baseline treatments DVT prophylaxis SCDs (1) Fever Qualifiers: Fever type: unspecified Qualified Code(s): R50.9 - Fever, unspecified
[2018-09-29] MEDS: oxyCODONE/Acetaminophen 10/325 Tablet PO PRN ×2 (16:23→21:11)
[2018-09-29 23:51] LABS: HSV 1 IgM by IFA NEGATIVE; HSV 2 IgM by IFA NEGATIVE
[2018-09-30 05:39] LABS: Eos # (Auto) 0.2 th/mm3 (0.0-0.4); Eos % (Auto) 10.8 % (0.0-4.0); Hematocrit 28.3 % (39.0-51.0); Hemoglobin 10.2 gm/dL (13.0-17.0); Lymph # (Auto) 0.3 th/mm3 (1.0-4.8); Lymph % (Auto) 22.5 % (9.0-44.0); Mean Corpuscular HGB Conc 35.9 % (32.0-36.0); Mean Corpuscular Hemoglobin 32.9 pg (27.0-34.0); Mean Corpuscular Volume 91.5 fL (80.0-100.0); Mean Platelet Volume 9.1 fL (7.0-11.0); Mono # (Auto) 0.3 th/mm3 (0.0-0.9); Neut # (Auto) 0.6 th/mm3 (1.8-7.7); Neut % (Auto) 42.7 % (16.0-70.0); Platelet Count 66 th/mm3 (150-450); Red Cell Distribution Width 14.5 % (11.6-17.2); White Blood Count 1.4 th/mm3 (4.0-11.0)
[2018-09-30 06:03] LABS: Albumin 2.4 g/dL (3.4-5.0); Anion Gap 7 meq/L (5-15); Aspartate Aminotransferase 63 U/L (15-37); Blood Urea Nitrogen 8 mg/dL (7-18); Carbon Dioxide 28.7 meq/L (21.0-32.0); Chloride 111 meq/L (98-107); Glomerular Filtration Rate Greater Than 89 mL/min (>89); Glucose,Random 86 mg/dL (74-106); Potassium 3.1 meq/L (3.5-5.1); Sodium 147 meq/L (136-145)
[2018-09-30 06:04] LABS: Alanine Aminotransferase 32 U/L (12-78)
[2018-09-30 06:06] LABS: Alkaline Phosphatase 44 U/L (45-117); Total Protein 6.7 g/dL (6.4-8.2)
[2018-09-30] MEDS: Lactobacillus Acidophilus/L. Spores Tablet PO SCH ×3 (08:54→17:02)
[2018-09-30] MEDS: oxyCODONE/Acetaminophen 10/325 Tablet PO PRN ×3 (08:54→21:53)
[2018-09-30 09:04] LABS: Eosinophils 4 % (0-4); Lymphocytes 15 % (9-44); Monocytes 23 % (0-8); Tear Drop Cells 1+
[2018-09-30 09:05] LABS: Ovalocytes 1+; Platelet Morphology Normal (Normal)
[2018-09-30] MEDS: Vancomycin Inj 1,750 MG in Sodium Chlor 0.9% Inj 500 ML IV.SIG SCH (10:32)
[2018-09-30] MEDS: Morphine Inj 4 MG/ML Vial IV.PUSH PRN ×3 (12:23→23:14)
--- NOTE | 2018-09-30 17:39 | P.PNID ---
Subjective Remarks: Patient notes that his headache is the same. "I just do not feel good" He is complaining of nausea currently. Grade fever this morning. Denies chills. He continues to refuse lumbar puncture reattempt. HSV antibody and cryptococcus antigen are negative. Diffuse rash of the skin appears unchanged. Ampicillin was discontinued. This is a 48-year-old white male with HIV disease and low CD4 count. The patient came to the emergency department for evaluation of headache. He states that the headache began 5 days ago and persisted and he had some neck stiffness and therefore he felt likely that he had meningitis. He reports that he had meningitis in his 20s and that he felt as if his symptoms were similar. He had a low-grade fever as well and some diarrhea. He reports that the headache is in the left temporal area of the head. He also states that he has felt that he may have been bitten by an insect prior to the start of the headache. He reports that the insect bite is located at the left temporal area where he points to the headache as well. The patient appears to be a poor historian. He states that he had no nausea, vomiting, fever, chills, or shortness of breath. The previous medical record notes report that he had nausea and vomiting for 2 days before presenting to the emergency department. He also notes that his temperature max was 103.2 degrees at home. His temperature in the emergency department was 100.3 and then it was to 102.7 The patient had attempted lumbar puncture, which was unsuccessful. He tells me that he will not allow another lumbar puncture to be performed. The patient had admission for headaches in August and also in April 2018 and workup was negative. Allergies/Adverse Reactions: Allergies haloperidol Allergy (Severe, Verified 09/25/18 17:57) Swelling TONGUE SWELLING - Per pt. Objective Vital Signs 09/29/18 20:00 09/30/18 00:00 09/30/18 04:00 Temperature 97.2 F L 98.5 F 99.5 F Pulse Rate 89 75 83 Respiratory Rate 20 21 17 Blood Pressure 98/55 L 124/82 143/81 H Pulse Oximetry 94 L 96 96 09/30/18 07:00 09/30/18 08:00 09/30/18 09:24 Temperature 100.9 F H Pulse Rate 88 Respiratory Rate 12 16 12 Blood Pressure 148/72 H Pulse Oximetry 99 09/30/18 11:24 09/30/18 12:00 09/30/18 14:07 Temperature 98.9 F Pulse Rate 78 Respiratory Rate 12 16 12 Blood Pressure 146/81 H Pulse Oximetry 95 09/30/18 15:38 09/30/18 16:00 Temperature 98.7 F Pulse Rate 71 Respiratory Rate 12 18 Blood Pressure 155/97 H Pulse Oximetry 96 Intake & Output 09/29/18 09/30/18 09/30/18 18:59 06:59 18:59 Intake Total 1717.5 / 1717.5 517.5 / 517.5 997.5 / 997.5 Output Total 1600 / 1600 650 / 650 Balance 117.5 / 117.5 517.5 / 517.5 347.5 / 347.5 Weight 104.1 kg Intake: IV 1117.5 / 1117.5 517.5 / 517.5 517.5 / 517.5 NS Inj 1,000 ML @ 100 mls/hr IV 400 / 400 .CONT .Q10H [facility] Rx#:[id number] Diflucan 400 mg Premix Bag 200 200 / 200 ML @ 100 mls/hr IV.SIG Q24H [facility] Rx#:[id number] Vancomycin Inj 1,750 MG In NS 517.5 / 517.5 517.5 / 517.5 517.5 / 517.5 Inj 500 ML @ 250 mls/hr IV.SIG Q12H [facility] Rx#:[id number] Oral 600 / 600 480 / 480 Output: Urine 1600 / 1600 650 / 650 Other: # Voids 3 1 Date of Last Bowel Movement 09/28/18 09/29/18 09/25/18 21:40 Blood - Peripheral Aerobic Blood Culture - Final No growth in 5 days 09/25/18 21:40 Blood - Peripheral Anaerobic Blood Culture - Final No growth in 5 days 09/25/18 21:45 Blood - Peripheral Aerobic Blood Culture - Final No growth in 5 days 09/25/18 21:45 Blood - Peripheral Anaerobic Blood Culture - Final No growth in 5 days 09/25/18 23:30 Throat Group A Streptococcus Screen/Cult - Final No Beta Streptococci isolated. Lab - Hematology Results 09/29/18 09/30/18 07:03 04:39 WBC 2.2 L 1.4 L RBC 3.58 L 3.10 L Hgb 11.6 L 10.2 L Hct 33.1 L 28.3 L MCV 92.2 91.5 MCH 32.3 32.9 MCHC 35.1 35.9 RDW 14.6 14.5 Plt Count 74 L D 66 L MPV 9.0 9.1 Prelim Diff (Auto) Slide review pending Slide review pending Neut % (Auto) 55.5 42.7 Lymph % (Auto) 20.7 22.5 [place] % (Auto) 12.5 H 23.0 H Eos % (Auto) 10.6 H 10.8 H Baso % (Auto) 0.7 1.0 Neut # (Auto) 1.2 L 0.6 L Lymph # (Auto) 0.4 L 0.3 L [place] # (Auto) 0.3 0.3 Eos # (Auto) 0.2 0.2 Baso # (Auto) 0.0 0.0 WBC Differential . Manual diff final Diff Scan Auto diff confirmed Seg Neuts % (Manual) 53 Band Neuts % (Manual) 3 Lymphocytes % (Manual) 15 Monocytes % (Manual) 23 H Eosinophils % (Manual) 4 Basophils % (Manual) 2 Abs Neuts (Manual) 0.8 L Differential Comment . . Platelet Estimate Low L Low L Platelet Morphology Normal Normal Tear Drop Cells 1+ H 1+ H Ovalocytes 1+ H 1+ H Lab - Chemistry Results 09/29/18 09/30/18 07:03 04:39 Sodium 145 147 H Potassium 3.4 L 3.1 L Chloride 112 H 111 H Carbon Dioxide 24.5 28.7 Anion Gap 9 7 BUN 5 L 8 Creatinine 0.78 0.84 Estimated GFR Greater than 89 Greater than 89 Random Glucose 85 86 Calcium 8.1 L D 8.0 L Total Bilirubin 0.5 0.4 AST 61 H 63 H ALT 34 32 Alkaline Phosphatase 47 44 L Total Protein 7.0 D 6.7 Albumin 2.6 L 2.4 L Imaging: ITS Impressions Chest X-Ray 09/25/18 21:26 CONCLUSION: No acute cardiopulmonary disease. There is no evidence of pneumonia. Head CT 09/25/18 21:26 CONCLUSION: 1. Negative noncontrast head CT. . Abdomen/Pelvis CT 09/26/18 02:06 CONCLUSION: 1. Nonobstructing left renal stones. Renal cysts. 2. Splenomegaly 3. Fat-containing umbilical hernia. Physical Exam: PHYSICAL EXAMINATION: GENERAL: No acute distress. HEENT: Head atraumatic. Extraocular movements grossly intact. Pupils reactive to light. No icterus. No conjunctival erythema. Oropharynx: Moist mucosa. No thrush. No visible lesions. NECK: Supple. No adenopathy. No swelling. LUNGS: Clear breath sounds. HEART: Regular S1 and S2, without audible murmurs, rubs, or gallops. ABDOMEN: Obese, soft, positive bowel sounds, nontender. EXTREMITIES: No clubbing, cyanosis, or edema. SKIN: Diffuse maculopapular rash is decreased. Skin appears flushed throughout. NEUROLOGIC: No gross focal finding. PSYCHIATRIC: Calm and cooperative. Assessment and Plan - Plan IMPRESSION: 1. Headache and fever in patient with human immunodeficiency virus/acquired immune deficiency syndrome and reported neck stiffness. 2. Diffuse rash, probably secondary to medication. The patient states that the rash was not present when he came to the emergency department. The rash is improving. The patient is concerned about possible meningitis. However, to determine whether he has meningitis, a lumbar puncture is necessary. He adamantly refuses to have a lumbar puncture attempted again. He was made aware that we cannot determine whether he has meningitis without the information from a lumbar puncture. He expresses that he understands that, but would not allow a lumbar puncture to be performed. I asked the patient again whether or not he would allow a lumbar puncture to be performed and he continues to refuse. 3. Neutropenia. RECOMMENDATIONS: 1. Continue empiric Diflucan 2. Stop vancomycin. 3. MRI of the brain, further evaluate headache. 3. Monitor the rash. 4. Monitor white blood cell count. May need to give him Neupogen if it continues to decrease. 5. Follow clinical course and follow the temperature. The patient has decided against treatment for HIV. He states that he does not want to be on any medications to treat the virus.
[2018-09-30] MEDS ORDERED: Gadobutrol PF 10 MMOL/10 ML Vial (for RAD) IV.SIG ONE (21:26)
--- NOTE | 2018-09-30 21:46 | MR ---
EXAM DATE: 09/30/2018 9:35 PM EST AGE/SEX: 48 years / Male INDICATIONS: Cephalgia. CLINICAL DATA: This is the patient's initial encounter. Patient reports that signs and symptoms have been present for 1 week and indicates a pain score of 7/10. MEDICAL/SURGICAL HISTORY: Hepatitis C. HIV. Chronic obstructive pulmonary disease. None. [place] [facility] [place]. . TECHNIQUE: Multiplanar, multisequence examination of the brain was performed without and with 10 ml G adavist (gadobutrol) contrast as a single exam dose. FINDINGS: Cerebrum: There is a 5 mm area of signal abnormality in the subcortical left premotor parietal mid c onvexity region characterized by T1 and T2 prolongation, no contrast enhancement and restricted diffu josh. No evidence of blood products on the susceptibility weighted images. No surrounding edema. The remainder of the brain is stable in appearance compared to prior with mild T2 prolongation in the occ ipital white matter.. Posterior Fossa: The cerebellum and brainstem are intact. The 4th ventricle is midline. The cerebel lopontine angle is unremarkable. The cerebellar tonsils are normal in position. Diffusion Imaging: No focal areas of restricted diffusion are seen. No evidence of acute infarction . Extracranial: Left anterior maxillary polyp stable from prior.. There is a rounded area of T2 prolon gation in the anterior left nares measuring 1.2 x 1.8 cm without enhancement. It is uncertain whether this arises from the scan of the nares or within the anterior nasal cavity. This may represent a skyler yp. Post Contrast: No abnormal areas of parenchymal or dural enhancement. No evidence of blood-brain ba rrier breakdown. CONCLUSION: 1. Interval development of a solitary signal abnormality in the subcortical white matter of the left mid convexity parietal region without enhancement and without restricted diffusion. 2. Interval development of a 1.7 cm nonenhancing lesion in the anterior left nares which could repre sent a cutaneous lesion or anterior nasal polyp. 3. Stable left maxillary and sphenoid sinus disease. Electronically signed by: Burt Lucio MD 09/30/2018 9:45 PM EST
[2018-10-01] MEDS: oxyCODONE/Acetaminophen 10/325 Tablet PO PRN ×4 (02:05→20:43)
[2018-10-01] MEDS: Morphine Inj 4 MG/ML Vial IV.PUSH PRN ×4 (03:27→23:54)
[2018-10-01 07:19] LABS: Eos # (Auto) 0.2 th/mm3 (0.0-0.4); Hematocrit 28.6 % (39.0-51.0); Hemoglobin 10.3 gm/dL (13.0-17.0); Lymph # (Auto) 0.5 th/mm3 (1.0-4.8); Lymph % (Auto) 36.2 % (9.0-44.0); Mean Corpuscular HGB Conc 35.9 % (32.0-36.0); Mean Corpuscular Hemoglobin 32.6 pg (27.0-34.0); Mean Corpuscular Volume 90.8 fL (80.0-100.0); Mean Platelet Volume 8.9 fL (7.0-11.0); Mono # (Auto) 0.3 th/mm3 (0.0-0.9); Mono % (Auto) 20.7 % (0.0-8.0); Neut # (Auto) 0.4 th/mm3 (1.8-7.7); Neut % (Auto) 30.1 % (16.0-70.0); Platelet Count 71 th/mm3 (150-450); Red Blood Count 3.15 mil/mm3 (4.50-5.90); Red Cell Distribution Width 14.7 % (11.6-17.2); White Blood Count 1.3 th/mm3 (4.0-11.0)
[2018-10-01 07:33] LABS: Anion Gap 8 meq/L (5-15); Blood Urea Nitrogen 8 mg/dL (7-18); Carbon Dioxide 27.4 meq/L (21.0-32.0); Chloride 108 meq/L (98-107); Glomerular Filtration Rate Greater Than 89 mL/min (>89); Glucose,Random 80 mg/dL (74-106); Potassium 3.3 meq/L (3.5-5.1); Sodium 143 meq/L (136-145)
[2018-10-01] MEDS: Lactobacillus Acidophilus/L. Spores Tablet PO SCH ×3 (08:00→17:24)
[2018-10-01 08:18] LABS: Eosinophils 5 % (0-4); Lymphocytes 37 % (9-44); Monocytes 16 % (0-8)
[2018-10-01 08:20] LABS: Ovalocytes 1+
[2018-10-01 08:50] LABS: Platelet Morphology Normal (Normal)
[2018-10-01] MEDS ORDERED: Sodium Chloride 0.9% 2 ML Flush PRN IV.FLUSH (12:36)
--- NOTE | 2018-10-01 13:51 | P.PNIM ---
Subjective Interval history: Reports still having loose stools although less frequent. Still having headaches and neck pain and photosensitivity. Tolerating diet and no active vomiting. No coughing no shortness of breath Physical Exam Vital signs: Last Vital Signs Temp 97.9 F 10/01/18 12:00 Pulse 80 10/01/18 12:00 Resp 16 10/01/18 12:00 BP 134/99 H 10/01/18 12:00 Pulse Ox 94 L 10/01/18 12:00 Intake & Output 09/29/18 09/30/18 10/01/18 10/02/18 06:59 06:59 06:59 06:59 Intake Total 4295.0 / 4295.0 2235.0 / 2235.0 1197.5 / 1197.5 Output Total 300 / 300 1600 / 1600 1000 / 1000 Balance 3995.0 / 3995.0 635.0 / 635.0 197.5 / 197.5 Weight 104.1 kg 104.1 kg 102.5 kg Narrative: GENERAL: NAD, A&Ox3 HEAD: Normocephalic. NECK: Supple, trachea midline. No lymphadenopathy. Full range of motion. EYES: No scleral icterus. No injection or drainage. CARDIOVASCULAR: Regular rate and rhythm without murmurs, gallops, or rubs. RESPIRATORY: Breath sounds equal bilaterally. No accessory muscle use. GASTROINTESTINAL: Abdomen soft, non-tender, nondistended. Normoactive bowel sounds MUSCULOSKELETAL: No cyanosis, or edema. SKIN: Warm and dry. NEURO: No focal neurological deficits. Results Labs CBC & Chem 7: 10/01/18 06:35 10/01/18 06:35 Labs: Microbiology 09/25/18 21:40 Blood - Peripheral Aerobic Blood Culture - Final No growth in 5 days 09/25/18 21:40 Blood - Peripheral Anaerobic Blood Culture - Final No growth in 5 days 09/25/18 21:45 Blood - Peripheral Aerobic Blood Culture - Final No growth in 5 days 09/25/18 21:45 Blood - Peripheral Anaerobic Blood Culture - Final No growth in 5 days Imaging Imaging: Impressions Head MRI 09/30/18 00:00 CONCLUSION: 1. Interval development of a solitary signal abnormality in the subcortical white matter of the left mid convexity parietal region without enhancement and without restricted diffusion. 2. Interval development of a 1.7 cm nonenhancing lesion in the anterior left nares which could represent a cutaneous lesion or anterior nasal polyp. 3. Stable left maxillary and sphenoid sinus disease. Assessment and Plan (1) Unspecified mood [affective] disorder: Code(s): F39 - Unspecified mood [affective] disorder Status: Acute Plan 48-year-old male admitted secondary to sepsis, fever and headache in setting of HIV Acute sepsis Fever of Uncertain Origin Improving Continue to monitor vital signs Continue to treat for infection, currently on empiric Diflucan Suspected meningitis with associated headache Immunocompromise status HIV Continue Diflucan, ID has discontinued Rocephin, and vancomycin. ID following Patient refuses lumbar puncture MRI ordered by ID revealed a new development of solitary signal in the subcortical white matter of the left mid convexity parietal region, consult Neurology for further recommendations. Discussed with radiology, Dr. Winters who feels the differential diagnosis in this age group would be a new infectious process versus subacute lacunar infarct. Diarrhea May be related to antibiotics Screen for C. Diff pending Start probiotic Lactinex Transaminitis Improved Follow LFTs Diabetes mellitus type 2 Follow blood sugars Insulin sliding scale Diabetic diet Neutropenia-persistent worsening, Neupogen to be given obtain hematology consultation likely related to his HIV and infection Anxiety Bipolar disorder Depression Xanax as needed DVT prophylaxis SCDs, Discharge Planning: home when medically stable Progress Note: Quality VTE Deep Vein Thrombosis/Pulmonary Embolism Present on Admission: No
[2018-10-01] MEDS ORDERED: Filgrastim Inj 300 MCG/ML Vial SQ ONE (14:00)
--- NOTE | 2018-10-01 14:50 | P.PNID ---
Subjective Remarks: Patient notes that his headache is the same. States that the SEXTON get up to a 10/10 at night. Less intense during the day. Denies visual changes. Temp lower. Denies chills. Poor appetite. He continues to refuse lumbar puncture reattempt. MRI notes. Solitary signal abnormality in the subcortical white matter of the left mid convexity parietal region without enhancement and without restricted diffusion. Interval development of a 1.7 cm nonenhancing lesion in the anterior left nares. HSV antibody and cryptococcus antigen are negative. Still has Diffuse rash of the skin. Ampicillin was discontinued. This is a 48-year-old white male with HIV disease and low CD4 count. The patient came to the emergency department for evaluation of headache. He states that the headache began 5 days ago and persisted and he had some neck stiffness and therefore he felt likely that he had meningitis. He reports that he had meningitis in his 20s and that he felt as if his symptoms were similar. He had a low-grade fever as well and some diarrhea. He reports that the headache is in the left temporal area of the head. He also states that he has felt that he may have been bitten by an insect prior to the start of the headache. He reports that the insect bite is located at the left temporal area where he points to the headache as well. The patient appears to be a poor historian. He also notes that his temperature max was 103.2 degrees at home. His temperature in the emergency department was 100.3 and then it was to 102.7 The patient had attempted lumbar puncture, which was unsuccessful. He tells me that he will not allow another lumbar puncture to be performed. The patient had admission for headaches in August and also in April 2018 and workup was negative. Allergies/Adverse Reactions: Allergies haloperidol Allergy (Severe, Verified 09/25/18 17:57) Swelling TONGUE SWELLING - Per pt. Objective Vital Signs 09/30/18 15:38 09/30/18 16:00 09/30/18 20:00 Temperature 98.7 F 98.6 F Pulse Rate 71 70 Respiratory Rate 12 18 18 Blood Pressure 155/97 H 130/68 Pulse Oximetry 96 94 L 10/01/18 00:00 10/01/18 04:00 10/01/18 07:58 Temperature 98.8 F 97.8 F Pulse Rate 78 Respiratory Rate 18 18 18 Blood Pressure 154/67 H 152/67 H Pulse Oximetry 95 94 L 10/01/18 08:00 10/01/18 12:00 Temperature 98.1 F 97.9 F Pulse Rate 70 80 Respiratory Rate 16 16 Blood Pressure 136/89 134/99 H Pulse Oximetry 95 94 L Intake & Output 09/30/18 10/01/18 10/01/18 18:59 06:59 18:59 Intake Total 1197.5 / 1197.5 Output Total 650 / 650 350 / 350 Balance 547.5 / 547.5 -350 / -350 Weight 102.5 kg Intake: IV 717.5 / 717.5 Diflucan 400 mg Premix Bag 200 200 / 200 ML @ 100 mls/hr IV.SIG Q24H [facility] Rx#:[id number] Vancomycin Inj 1,750 MG In NS 517.5 / 517.5 Inj 500 ML @ 250 mls/hr IV.SIG Q12H [facility] Rx#:[id number] Oral 480 / 480 Output: Urine 650 / 650 350 / 350 Other: # Voids 1 2 Date of Last Bowel Movement 09/29/18 09/29/18 09/29/18 09/25/18 21:40 Blood - Peripheral Aerobic Blood Culture - Final No growth in 5 days 09/25/18 21:40 Blood - Peripheral Anaerobic Blood Culture - Final No growth in 5 days 09/25/18 21:45 Blood - Peripheral Aerobic Blood Culture - Final No growth in 5 days 09/25/18 21:45 Blood - Peripheral Anaerobic Blood Culture - Final No growth in 5 days Lab - Hematology Results 09/30/18 10/01/18 04:39 06:35 WBC 1.4 L 1.3 L RBC 3.10 L 3.15 L Hgb 10.2 L 10.3 L Hct 28.3 L 28.6 L MCV 91.5 90.8 MCH 32.9 32.6 MCHC 35.9 35.9 RDW 14.5 14.7 Plt Count 66 L 71 L MPV 9.1 8.9 Prelim Diff (Auto) Slide review pending Slide review pending Neut % (Auto) 42.7 30.1 Lymph % (Auto) 22.5 36.2 [place] % (Auto) 23.0 H 20.7 H Eos % (Auto) 10.8 H 12.0 H Baso % (Auto) 1.0 1.0 Neut # (Auto) 0.6 L 0.4 L* Lymph # (Auto) 0.3 L 0.5 L [place] # (Auto) 0.3 0.3 Eos # (Auto) 0.2 0.2 Baso # (Auto) 0.0 0.0 WBC Differential Manual diff final Manual diff final Seg Neuts % (Manual) 53 40 Band Neuts % (Manual) 3 Lymphocytes % (Manual) 15 37 Monocytes % (Manual) 23 H 16 H Eosinophils % (Manual) 4 5 H Basophils % (Manual) 2 2 Abs Neuts (Manual) 0.8 L 0.5 L* Differential Comment . . Platelet Estimate Low L Low L Platelet Morphology Normal Normal Tear Drop Cells 1+ H Ovalocytes 1+ H 1+ H Lab - Chemistry Results 09/30/18 10/01/18 04:39 06:35 Sodium 147 H 143 Potassium 3.1 L 3.3 L Chloride 111 H 108 H Carbon Dioxide 28.7 27.4 Anion Gap 7 8 BUN 8 8 Creatinine 0.84 0.75 Estimated GFR Greater than 89 Greater than 89 Random Glucose 86 80 Calcium 8.0 L 8.0 L Total Bilirubin 0.4 AST 63 H ALT 32 Alkaline Phosphatase 44 L Total Protein 6.7 Albumin 2.4 L Imaging: ITS Impressions Chest X-Ray 09/25/18 21:26 CONCLUSION: No acute cardiopulmonary disease. There is no evidence of pneumonia. Head CT 09/25/18 21:26 CONCLUSION: 1. Negative noncontrast head CT. . Abdomen/Pelvis CT 09/26/18 02:06 CONCLUSION: 1. Nonobstructing left renal stones. Renal cysts. 2. Splenomegaly 3. Fat-containing umbilical hernia. Head MRI 09/30/18 00:00 CONCLUSION: 1. Interval development of a solitary signal abnormality in the subcortical white matter of the left mid convexity parietal region without enhancement and without restricted diffusion. 2. Interval development of a 1.7 cm nonenhancing lesion in the anterior left nares which could represent a cutaneous lesion or anterior nasal polyp. 3. Stable left maxillary and sphenoid sinus disease. Physical Exam: PHYSICAL EXAMINATION: GENERAL: No acute distress. HEENT: Head atraumatic. Extraocular movements grossly intact. Pupils reactive to light. No icterus. No conjunctival erythema. NOSE: mild swelling at the L nare without erythema or induration. Oropharynx: Moist mucosa. No thrush. No visible lesions. NECK: Supple. No adenopathy. No swelling. LUNGS: Clear breath sounds. HEART: Regular S1 and S2, without audible murmurs, rubs, or gallops. ABDOMEN: Obese, soft, positive bowel sounds, nontender. EXTREMITIES: No clubbing, cyanosis, or edema. SKIN: Diffuse maculopapular rash is decreased. Skin is less flushed. NEUROLOGIC: No gross focal finding. PSYCHIATRIC: Calm and cooperative. Assessment and Plan - Plan IMPRESSION: 1. Headache and fever in patient with human immunodeficiency virus/acquired immune deficiency syndrome and reported neck stiffness. 2. Diffuse rash, probably secondary to medication. The patient states that the rash was not present when he came to the emergency department. The rash is improving. The patient is concerned about possible meningitis. However, to determine whether he has meningitis, a lumbar puncture is necessary. He adamantly refuses to have a lumbar puncture attempted again. He was made aware that we cannot determine whether he has meningitis without the information from a lumbar puncture. He expresses that he understands that, but would not allow a lumbar puncture to be performed. I asked the patient again whether or not he would allow a lumbar puncture to be performed and he continues to refuse. 3. Neutropenia. 4. Discussed MRI findings with radiology. reports that the enhancement at the left parietal brain could be a blood vessel. RECOMMENDATIONS: 1. Continue empiric Diflucan 2. obtain toxoplasma titer. 3. Monitor the rash. 4. Monitor white blood cell count. May need to give him Neupogen if it continues to decrease. 5. Follow clinical course and follow the temperature. 6. Obtain Sed rate, DOMENIC. RF, histoplasma titer. The patient has decided against treatment for HIV. He states that he does not want to be on any medications to treat the virus.
[2018-10-01 17:29] LABS: % Iron Saturation 34.7 % (20-50); Folate 11.9 ng/mL (3.1-17.5)
--- NOTE | 2018-10-01 18:09 | MB ---
cc: Norm Garcia MD DATE: 10/01/2018 ATTENDING PHYSICIAN: Dorothea Escobar MD REASON FOR CONSULTATION: Hematology was consulted to render an opinion regarding a patient with pancytopenia. HISTORY OF PRESENT ILLNESS: The patient is a 48-year-old male with history of HIV/AIDS and noncompliance with treatment, admitted to the hospital with complaint of headache, fever, shortness of breath, nonproductive cough and diarrhea. He has been started on antibiotics per infectious disease. The patient did not follow up with infectious disease and has not been on antiretroviral therapy. During this hospital stay, he was noted to have worsening neutropenia. He also has pancytopenia. Today, his white blood cell count trended down to 1.3 with a neutrophil count of 0.4. He was febrile until yesterday. He feels a little better. He denies any chest pain at this time. He still has shortness of breath and has a nonproductive cough. He denies any nausea or vomiting. He has occasional loose stool. He denies any dysuria or hematuria. He denies any bleeding or bruising. PAST MEDICAL HISTORY: 1. HIV/AIDS. Reportedly, last CD4 count was 20. He was diagnosed 27 years ago. 2. Hepatitis C. 3. Chronic obstructive pulmonary disease. 4. Bipolar disorder. 5. Meningitis. 6. Anxiety. 7. MRSA infection. 8. Posttraumatic stress disorder. 9. Neuropathy. 10. PCP pneumonia. 11. Diabetes mellitus. PAST SURGICAL HISTORY: None. FAMILY HISTORY: No hematologic disorders. SOCIAL HISTORY: Smokes a pack a day for more than 35 years. Denies alcohol use. He smokes marijuana. ALLERGIES: HALDOL. CURRENT MEDICATIONS: 1. Diflucan. 2. Lactinex. REVIEW OF SYSTEMS: CONSTITUTIONAL: As above. EYES: Negative. ENT: Negative. CARDIOVASCULAR: No chest pressure or palpitations. RESPIRATORY: As above. GASTROINTESTINAL: As above. GENITOURINARY: Negative. MUSCULOSKELETAL: Negative. HEMATOLOGIC: As above. ENDOCRINE: Negative. DERMATOLOGIC: Negative. PSYCHIATRIC: Negative. NEUROLOGIC: Negative. PHYSICAL EXAMINATION: VITAL SIGNS: Temperature 97.9, blood pressure 134/99, O2 saturation 94% on room air. GENERAL: He is alert and oriented x 3, in no acute distress. HEENT: Atraumatic, normocephalic. Pupils are equal, round and reactive to light. Extraocular muscles are intact. No scleral icterus. Oropharynx with dry mucosa. No thrush. No mucositis. NECK: No thyromegaly. No palpable masses. LYMPHATIC: No palpable cervical, clavicular, axillary or inguinal lymph nodes. HEART: Regular S1, S2. No murmur. LUNGS: Clear to auscultation. No wheeze or rhonchi. ABDOMEN: Soft. It is distended. Spleen edge is palpable. He has an umbilical hernia, nontender. EXTREMITIES: No cyanosis or clubbing. No significant edema. No calf tenderness. SKIN: No rash or petechiae. NEUROLOGIC: Nonfocal. LABORATORY DATA: I have reviewed his lab work during this hospital stay. ASSESSMENT: 1. Pancytopenia due to underlying human immunodeficiency virus/acquired immunodeficiency syndrome. His white blood cell count has trended lower, likely due to the infection. His hemoglobin is relatively stable during this hospital stay. His platelet count is also stable. Due to the fact that he has possible meningitis, we will start him on Neupogen. Continue to monitor CBC for now. I am also going to check his iron and vitamin studies to see if he has any other deficiency that could cause cytopenia. 2. Human immunodeficiency virus/acquired immunodeficiency syndrome. Reportedly, CD4 count was 20. He has been noncompliant with treatment. 3. Hepatitis C. 4. Chronic obstructive pulmonary disease. 5. Diabetes mellitus. PLAN: 1. Start Neupogen. 2. Check iron and vitamin studies. 3. Monitor CBC. 4. Continue antibiotics per infectious disease. Thank you, Dr. Escobar, for asking me to see this patient. MD MATEO Lazaro/fabian , 04:21 PM , 04:33 PM AIDAN
[2018-10-01] MEDS: Sodium Chloride 0.9% 2 ML Flush BID IV.FLUSH SCH (20:49)
[2018-10-02] MEDS: oxyCODONE/Acetaminophen 10/325 Tablet PO PRN ×3 (02:12→20:10)
[2018-10-02] MEDS: Morphine Inj 4 MG/ML Vial IV.PUSH PRN ×2 (03:32→08:05)
[2018-10-02] MEDS: Lactobacillus Acidophilus/L. Spores Tablet PO SCH ×3 (08:05→18:53)
[2018-10-02] MEDS: Sodium Chloride 0.9% 2 ML Flush BID IV.FLUSH SCH ×2 (09:09→20:10)
[2018-10-02 10:42] LABS: Baso # (Auto) 0.1 th/mm3 (0.0-0.2); Eos # (Auto) 0.2 th/mm3 (0.0-0.4); Eos % (Auto) 2.6 % (0.0-4.0); Hematocrit 31.9 % (39.0-51.0); Hemoglobin 11.2 gm/dL (13.0-17.0); Lymph # (Auto) 0.7 th/mm3 (1.0-4.8); Lymph % (Auto) 8.9 % (9.0-44.0); Mean Corpuscular HGB Conc 35.2 % (32.0-36.0); Mean Corpuscular Hemoglobin 33.2 pg (27.0-34.0); Mean Corpuscular Volume 94.5 fL (80.0-100.0); Mean Platelet Volume 9.2 fL (7.0-11.0); Mono # (Auto) 0.5 th/mm3 (0.0-0.9); Mono % (Auto) 5.7 % (0.0-8.0); Neut # (Auto) 6.7 th/mm3 (1.8-7.7); Neut % (Auto) 81.8 % (16.0-70.0); Platelet Count 79 th/mm3 (150-450); Red Blood Count 3.37 mil/mm3 (4.50-5.90); Red Cell Distribution Width 14.8 % (11.6-17.2); White Blood Count 8.2 th/mm3 (4.0-11.0)
[2018-10-02 11:14] LABS: Anion Gap 8 meq/L (5-15); Blood Urea Nitrogen 10 mg/dL (7-18); Calcium 8.7 mg/dL (8.5-10.1); Carbon Dioxide 29.1 meq/L (21.0-32.0); Chloride 105 meq/L (98-107); Glomerular Filtration Rate Greater Than 89 mL/min (>89); Glucose,Random 79 mg/dL (74-106); Potassium 3.4 meq/L (3.5-5.1); Sodium 142 meq/L (136-145)
[2018-10-02 11:24] LABS: Lymphocytes 6 % (9-44); Metamyelocytes 1 % (0-1); Monocytes 5 % (0-8); Toxic Granulation 1+
[2018-10-02 11:25] LABS: Ovalocytes 1+; Platelet Morphology Normal (Normal); Tear Drop Cells 1+
[2018-10-02] MEDS ORDERED: Acetaminophen 325 MG Tablet PO PRN (12:39)
--- NOTE | 2018-10-02 12:44 | P.PNIM ---
Subjective Interval history: States that he still has a headache. Not better and not worse. No neck pain at this time. No nausea vomiting tolerating diet. Diarrhea is improving. Physical Exam Vital signs: Last Vital Signs Temp 98.1 F 10/02/18 12:00 Pulse 70 10/02/18 12:00 Resp 16 10/02/18 12:00 BP 112/68 10/02/18 12:00 Pulse Ox 91 L 10/02/18 12:00 Intake & Output 09/30/18 10/01/18 10/02/18 10/03/18 06:59 06:59 06:59 06:59 Intake Total 2235.0 / 2235.0 1197.5 / 1197.5 700 / 700 Output Total 1600 / 1600 1000 / 1000 Balance 635.0 / 635.0 197.5 / 197.5 700 / 700 Weight 104.1 kg 102.5 kg 100.6 kg Narrative: GENERAL: NAD, A&Ox3 HEAD: Normocephalic. NECK: Supple, trachea midline. No lymphadenopathy. Full range of motion. EYES: No scleral icterus. No injection or drainage. CARDIOVASCULAR: Regular rate and rhythm without murmurs, gallops, or rubs. RESPIRATORY: Breath sounds equal bilaterally. No accessory muscle use. GASTROINTESTINAL: Abdomen soft, non-tender, nondistended. Normoactive bowel sounds MUSCULOSKELETAL: No cyanosis, or edema. SKIN: Warm and dry. NEURO: No focal neurological deficits. Results Labs CBC & Chem 7: 10/02/18 08:43 10/02/18 08:43 Assessment and Plan (1) Unspecified mood [affective] disorder: Code(s): F39 - Unspecified mood [affective] disorder Status: Acute Plan 48-year-old male admitted secondary to sepsis, fever and headache in setting of HIV Acute sepsis Fever of Uncertain Origin Improving Continue to monitor vital signs Continue to treat for infection, currently on empiric Diflucan Appreciate IDs recommendations. Suspected meningitis with associated headache Immunocompromise status HIV -patient refusing antiretrovirals Continue Diflucan, ID has discontinued Rocephin, and vancomycin. ID following Patient refuses lumbar puncture MRI ordered by ID revealed a new development of solitary signal in the subcortical white matter of the left mid convexity parietal region, consulted Neurology for further recommendations. Discussed with radiology, Dr. Winters who feels the differential diagnosis in this age group would be a new infectious process versus subacute lacunar infarct. Toxoplasma IG AB currently pending, cryptococcus ag screen negative DOMENIC and RF negative Diarrhea May be related to antibiotics Screen for C. Diff pending Start probiotic Lactinex Transaminitis Improved Follow LFTs Diabetes mellitus type 2 Fasting blood sugars has been well controlled. Insulin sliding scale Diabetic diet Neutropenia-improved after given Neupogen. Appreciate hematology oncology evaluation. Likely due to his HIV status and acute infection. Will continue monitor. Anxiety Bipolar disorder Depression Xanax as needed DVT prophylaxis SCDs, Discharge Planning: home when medically stable Progress Note: Quality VTE Deep Vein Thrombosis/Pulmonary Embolism Present on Admission: No
--- NOTE | 2018-10-02 12:47 | P.PNID ---
Subjective Remarks: Patient notes that his headache better. he told me that he stopped taking the pain medicines. No visual changes. Temp lower. Denies chills. Notes he is walking in and out of the room. He continues to refuse lumbar puncture. MRI notes. Solitary signal abnormality in the subcortical white matter of the left mid convexity parietal region without enhancement and without restricted diffusion. Interval development of a 1.7 cm nonenhancing lesion in the anterior left nares. DOMENIC negative. RF negative. HSV antibody and cryptococcus antigen are negative. Rash improved. Ampicillin was discontinued. This is a 48-year-old white male with HIV disease and low CD4 count. The patient came to the emergency department for evaluation of headache. He states that the headache began 5 days ago and persisted and he had some neck stiffness and therefore he felt likely that he had meningitis. He reports that he had meningitis in his 20s and that he felt as if his symptoms were similar. He had a low-grade fever as well and some diarrhea. He reports that the headache is in the left temporal area of the head. He also states that he has felt that he may have been bitten by an insect prior to the start of the headache. He reports that the insect bite is located at the left temporal area where he points to the headache as well. The patient appears to be a poor historian. He also notes that his temperature max was 103.2 degrees at home. His temperature in the emergency department was 100.3 and then it was to 102.7 The patient had attempted lumbar puncture in te ED , which was unsuccessful. He refused repeat attempt at LP. The patient had admission for headaches in August and also in April 2018 and workup was negative. Allergies/Adverse Reactions: Allergies haloperidol Allergy (Severe, Verified 09/25/18 17:57) Swelling TONGUE SWELLING - Per pt. Objective Vital Signs 10/01/18 16:00 10/01/18 20:00 10/02/18 00:00 Temperature 97.9 F 99.9 F H 99.3 F Pulse Rate 78 75 75 Respiratory Rate 16 20 19 Blood Pressure 126/84 155/74 H 135/78 Pulse Oximetry 98 94 L 97 10/02/18 04:00 10/02/18 08:00 10/02/18 09:09 Temperature 98.8 F Pulse Rate 84 75 Respiratory Rate 17 16 16 Blood Pressure 123/80 124/75 Pulse Oximetry 91 L 91 L 10/02/18 12:00 Temperature 98.1 F Pulse Rate 70 Respiratory Rate 16 Blood Pressure 112/68 Pulse Oximetry 91 L Intake & Output 10/01/18 10/02/18 10/02/18 18:59 06:59 18:59 Intake Total 500 / 500 200 / 200 Balance 500 / 500 200 / 200 Weight 100.6 kg Intake: IV 200 / 200 Diflucan 400 mg Premix Bag 200 200 / 200 ML @ 100 mls/hr IV.SIG Q24H [facility] Rx#:[id number] Oral 500 / 500 Other: # Voids 4 # Urine Diapers 4 Date of Last Bowel Movement 09/29/18 10/01/18 09/25/18 21:40 Blood - Peripheral Aerobic Blood Culture - Final No growth in 5 days 09/25/18 21:40 Blood - Peripheral Anaerobic Blood Culture - Final No growth in 5 days 09/25/18 21:45 Blood - Peripheral Aerobic Blood Culture - Final No growth in 5 days 09/25/18 21:45 Blood - Peripheral Anaerobic Blood Culture - Final No growth in 5 days Lab - Hematology Results 10/01/18 10/01/18 10/02/18 06:35 15:28 08:43 WBC 1.3 L 8.2 RBC 3.15 L 3.37 L Hgb 10.3 L 11.2 L Hct 28.6 L 31.9 L MCV 90.8 94.5 D MCH 32.6 33.2 MCHC 35.9 35.2 RDW 14.7 14.8 Plt Count 71 L 79 L MPV 8.9 9.2 Prelim Diff (Auto) Slide review pending Slide review pending Neut % (Auto) 30.1 81.8 H Lymph % (Auto) 36.2 8.9 L [place] % (Auto) 20.7 H 5.7 Eos % (Auto) 12.0 H 2.6 Baso % (Auto) 1.0 1.0 Neut # (Auto) 0.4 L* 6.7 Lymph # (Auto) 0.5 L 0.7 L [place] # (Auto) 0.3 0.5 Eos # (Auto) 0.2 0.2 Baso # (Auto) 0.0 0.1 WBC Differential Manual diff final Manual diff final Seg Neuts % (Manual) 40 71 H Band Neuts % (Manual) 17 H Lymphocytes % (Manual) 37 6 L Monocytes % (Manual) 16 H 5 Eosinophils % (Manual) 5 H Basophils % (Manual) 2 Metamyelocytes % (Man) 1 Abs Neuts (Manual) 0.5 L* 7.3 Differential Comment . . Toxic Granulation 1+ H Platelet Estimate Low L Low L Platelet Morphology Normal Normal Tear Drop Cells 1+ H Ovalocytes 1+ H 1+ H ESR 39 H Lab - Chemistry Results 10/01/18 10/01/18 10/02/18 06:35 06:35 08:43 Sodium 143 142 Potassium 3.3 L 3.4 L Chloride 108 H 105 Carbon Dioxide 27.4 29.1 Anion Gap 8 8 BUN 8 10 Creatinine 0.75 0.82 Estimated GFR Greater than 89 Greater than 89 Random Glucose 80 79 Calcium 8.0 L 8.7 Iron 114 TIBC 329 % Saturation 34.7 Ferritin 531 H Vitamin B12 312 Folate 11.9 Imaging: ITS Impressions Chest X-Ray 09/25/18 21:26 CONCLUSION: No acute cardiopulmonary disease. There is no evidence of pneumonia. Head CT 09/25/18 21:26 CONCLUSION: 1. Negative noncontrast head CT. . Abdomen/Pelvis CT 09/26/18 02:06 CONCLUSION: 1. Nonobstructing left renal stones. Renal cysts. 2. Splenomegaly 3. Fat-containing umbilical hernia. Head MRI 09/30/18 00:00 CONCLUSION: 1. Interval development of a solitary signal abnormality in the subcortical white matter of the left mid convexity parietal region without enhancement and without restricted diffusion. 2. Interval development of a 1.7 cm nonenhancing lesion in the anterior left nares which could represent a cutaneous lesion or anterior nasal polyp. 3. Stable left maxillary and sphenoid sinus disease. Physical Exam: PHYSICAL EXAMINATION: GENERAL: No acute distress. HEENT: Head atraumatic. Extraocular movements grossly intact. Pupils reactive to light. No icterus. No conjunctival erythema. NOSE: mild swelling at the L nare without erythema or induration. Oropharynx: Moist mucosa. No thrush. No visible lesions. NECK: Supple. No adenopathy. No swelling. LUNGS: Clear breath sounds. HEART: Regular S1 and S2, without audible murmurs, rubs, or gallops. ABDOMEN: Obese, soft, positive bowel sounds, nontender. EXTREMITIES: No clubbing, cyanosis, or edema. SKIN: Skin rash is much improved. NEUROLOGIC: No gross focal finding. PSYCHIATRIC: Calm and cooperative. Assessment and Plan - Plan IMPRESSION: 1. Headache and fever in patient with human immunodeficiency virus/acquired immune deficiency syndrome and reported neck stiffness. Etiology ?. He appears better. I don't know if the response is due to Diflucan. Cannot determine if this is fungal meningitis because we did no get CSF for analysis. 2. Diffuse rash, probably secondary to medication. Rash improved Ampicillin was stopped. The patient was concerned about possible meningitis. However, to determine whether he has meningitis, a lumbar puncture is necessary. He adamantly refuses to have a lumbar puncture attempted again. He was made aware that we cannot determine whether he has meningitis without the information from a lumbar puncture. He expresses that he understands that, but would not allow a lumbar puncture to be performed. 3. Neutropenia. HIV immunosuppression. Started on Neupogen. RECOMMENDATIONS: 1. Continue empiric Diflucan change to PO to complete 10 days. 2. Monitor toxoplasma titer. He can be discharge once the blood counts improve. The patient has decided against treatment for HIV. He states that he does not want to be on any medications to treat the virus. He tells me that he takes Bactrim and Azithromycin which he has supply at home.
--- NOTE | 2018-10-02 14:29 | MB ---
cc: Sergio Quiros MD, PhD DATE: 10/02/2018 NEUROLOGY CONSULTATION REASON FOR CONSULTATION: Headache. HISTORY OF PRESENT ILLNESS: Mr. Morgan is a 48-year-old man; HIV positive, who relates headaches for the past week. He describes these as coming and going on the left side of his head, often starting the neck; they are throbbing and pounding in nature, lasting several minutes at a time. He has several of these during the day. He is also running fevers up to 103 degrees at home. He presented to the hospital. Attempted lumbar puncture was made, but was not successful. He has refused any additional attempts at lumbar puncture. He still is getting intermittent headaches. He denies any focal neurologic symptoms. PAST MEDICAL HISTORY: He has a history of HIV/AIDS, hepatitis C, COPD, bipolar disorder. CURRENT MEDICATIONS: 1. Xanax. 2. Tylenol. 3. Dulcolax. 4. Neupogen. 5. Diflucan. 6. Lactinex 7. Lactulose. 8. Melatonin. 9. Morphine p.r.n. 10. Zofran p.r.n. 11. Percocet p.r.n. pain. 12. Senokot. NEUROLOGIC EXAMINATION: VITAL SIGNS: Blood pressure is 112/68, pulse is 70, respirations 16, temperature 98.1 degrees. NEUROLOGIC: High cortical function is normal. Cranial nerves are intact. On motor exam, he has got normal strength in all groups. He is tender over the left occipital groove, which triggers the headache. IMAGIN. MRI of the brain obtained on 09/30/2018 shows an area of increased signal in the left parietal white matter, which appears to be new. There is no contrast enhancement; however. 2. Head CT is normal. LABORATORY DATA: White count 2000, hemoglobin 10.2, hematocrit 29.3%, platelet count 55,000. Sodium is 145, potassium 3.4, chloride 112, CO2 24.5, BUN is 5, creatinine 0.78, GFR is 89, calcium 8.1, AST 61, ALT 34. ASSESSMENT AND IMPRESSION: Headaches. Appear to be migrainous in nature given the unilateral nature with a throbbing quality as well as associated photophobia and nausea. He does have some tenderness of the occipital area; the headaches may be cervicogenic in nature. Given his HIV status, I did recommend to the patient that he agree to a repeat lumbar puncture to rule out infectious etiology, but he refuses lumbar puncture. I would recommend an MRI of the cervical spine to rule out cervical spondylosis contributing to the headaches. We will start the patient on Topamax prophylactically and also Imitrex p.r.n. to see if this controls the headaches. Regarding the brain MRI finding in the left centrum semiovale, I would recommend a followup MRI of the brain with and without contrast in 1-2 months. Sergio Quiros MD, PhD OSMANY/patt , 01:54 PM , 02:08 PM
--- NOTE | 2018-10-02 17:31 | P.PNONC ---
Subjective Interval history: Patient sleeping on approach, awakens easily to voice. Patient reports one episode of diarrhea today. He reports headaches come and go. Objective Vital Signs/Intake & Output: Vital Signs 10/01/18 20:00 10/02/18 00:00 10/02/18 04:00 Temperature 99.9 F H 99.3 F 98.8 F Pulse Rate 75 75 84 Respiratory Rate 20 19 17 Blood Pressure 155/74 H 135/78 123/80 Pulse Oximetry 94 L 97 91 L 10/02/18 08:00 10/02/18 09:09 10/02/18 12:00 Temperature 98.1 F Pulse Rate 75 70 Respiratory Rate 16 16 16 Blood Pressure 124/75 112/68 Pulse Oximetry 91 L 91 L 10/02/18 16:00 Temperature 98.4 F Pulse Rate 80 Respiratory Rate 16 Blood Pressure 180/95 H Pulse Oximetry 94 L Intake & Output 10/01/18 10/02/18 10/02/18 18:59 06:59 18:59 Intake Total 500 / 500 200 / 200 Balance 500 / 500 200 / 200 Weight 100.6 kg Intake: IV 200 / 200 Diflucan 400 mg Premix Bag 200 200 / 200 ML @ 100 mls/hr IV.SIG Q24H [facility] Rx#:[id number] Oral 500 / 500 Other: # Voids 4 # Urine Diapers 4 Date of Last Bowel Movement 09/29/18 10/01/18 Result Diagrams: 10/02/18 08:43 10/02/18 08:43 Laboratory Results: Laboratory Results - last 24 hr 10/01/18 10/01/18 10/02/18 06:35 15:28 08:43 WBC 8.2 RBC 3.37 L Hgb 11.2 L Hct 31.9 L MCV 94.5 D MCH 33.2 MCHC 35.2 RDW 14.8 Plt Count 79 L MPV 9.2 Prelim Diff (Auto) Slide review pending Neut % (Auto) 81.8 H Lymph % (Auto) 8.9 L [place] % (Auto) 5.7 Eos % (Auto) 2.6 Baso % (Auto) 1.0 Neut # (Auto) 6.7 Lymph # (Auto) 0.7 L [place] # (Auto) 0.5 Eos # (Auto) 0.2 Baso # (Auto) 0.1 WBC Differential Manual diff final Seg Neuts % (Manual) 71 H Band Neuts % (Manual) 17 H Lymphocytes % (Manual) 6 L Monocytes % (Manual) 5 Metamyelocytes % (Man) 1 Abs Neuts (Manual) 7.3 Differential Comment . Toxic Granulation 1+ H Platelet Estimate Low L Platelet Morphology Normal Tear Drop Cells 1+ H Ovalocytes 1+ H Sodium Potassium Chloride Carbon Dioxide Anion Gap BUN Creatinine Estimated GFR Random Glucose Calcium TIBC 329 % Saturation 34.7 Ferritin 531 H Vitamin B12 312 Folate 11.9 DOMENIC Screen Neg 10/02/18 08:43 WBC RBC Hgb Hct MCV MCH MCHC RDW Plt Count MPV Prelim Diff (Auto) Neut % (Auto) Lymph % (Auto) [place] % (Auto) Eos % (Auto) Baso % (Auto) Neut # (Auto) Lymph # (Auto) [place] # (Auto) Eos # (Auto) Baso # (Auto) WBC Differential Seg Neuts % (Manual) Band Neuts % (Manual) Lymphocytes % (Manual) Monocytes % (Manual) Metamyelocytes % (Man) Abs Neuts (Manual) Differential Comment Toxic Granulation Platelet Estimate Platelet Morphology Tear Drop Cells Ovalocytes Sodium 142 Potassium 3.4 L Chloride 105 Carbon Dioxide 29.1 Anion Gap 8 BUN 10 Creatinine 0.82 Estimated GFR Greater than 89 Random Glucose 79 Calcium 8.7 TIBC % Saturation Ferritin Vitamin B12 Folate DOMENIC Screen Culture Results: Microbiology 09/25/18 21:40 Aerobic Blood Culture - Final Blood - Peripheral No growth in 5 days Anaerobic Blood Culture - Final No growth in 5 days 09/25/18 21:45 Aerobic Blood Culture - Final Blood - Peripheral No growth in 5 days Anaerobic Blood Culture - Final No growth in 5 days Medications: Active Medications Generic Name Dose Route Start Last Admin Trade Name Freq PRN Reason Stop Dose Admin Fluconazole 400 mg 10/02/18 16:00 10/02/18 15:46 Diflucan PO 400 mg DAILY [facility] Administration Lactobacillus Acidophilus 1 tab 09/27/18 13:00 10/02/18 15:46 Lactinex PO 1 tab TID MINOR Administration Melatonin 5 mg 09/27/18 10:54 09/27/18 22:15 Melatonin PO 5 mg HS PRN Administration INSOMNIA Morphine Sulfate 2 mg 09/27/18 10:46 10/02/18 08:05 Morphine Inj IV.PUSH 2 mg Q4H PRN Administration BREAKTHROUGH PAIN Ondansetron HCl 4 mg 09/26/18 01:06 09/30/18 17:06 Zofran Inj IV.PUSH 4 mg Q6H PRN Administration NAUSEA OR VOMITING Oxycodone/Acetaminophen 1 tab 09/27/18 10:46 10/02/18 06:24 Percocet 10/325 Mg PO 1 tab Q4H PRN Administration Pain 7 to 10 Oxycodone/Acetaminophen 1 tab 09/27/18 10:46 09/27/18 18:18 Percocet 5/325 Mg PO 1 tab Q4H PRN Administration Pain 3 to 6 Sodium Chloride 2 ml 10/01/18 21:00 10/02/18 09:09 Ns Flush IV.FLUSH 2 ml BID MINOR Administration Objective Remarks: GENERAL: Chronically ill-appearing, disheveled male patient, in no acute distress. SKIN: Warm and dry. HEAD: Normocephalic. EYES: No scleral icterus. No injection or drainage. NECK: Supple, trachea midline. CARDIOVASCULAR: Regular rate and rhythm without murmurs. RESPIRATORY: Clear posteriorly. Nonlabored. GASTROINTESTINAL: Abdomen large, soft, non-tender, nondistended. EXTREMITIES: No cyanosis, or edema. MUSCULOSKELETAL: Adequate muscle tone. NEUROLOGICAL: No obvious focal deficit. Awakens easily to voice, alert, and oriented x3. PSYCHIATRIC: Appropriate mood and affect; insight and judgment normal. Assessment/Plan - Plan 48-year-old male patient with a history of HIV/AIDS and noncompliance with treatment. Admitted to the hospital with complaints of headache, fever, shortness of breath, nonproductive cough and diarrhea. Hematology was consulted to render an opinion regarding patient with pancytopenia. Recommendations: 1. Pancytopenia, status post Neupogen injection. ANC increased to 7300. Neupogen discontinued. Hemoglobin 11.2, platelets 79,000. 2. Iron and vitamin studies within normal limits. 3. Monitor CBC. 4. Antibiotics per infectious disease. - Attending Statement The exam, history, and the medical decision-making described in the above note were completed with the assistance of the mid-level provider. I reviewed and agree with the findings presented. I attest that I had a [id number] encounter with the patient on the same day, and personally performed and documented my assessment and findings in the medical record.Late entry. Patient has intermittent headache but feeling better when I saw him. WBC trended up and will stop neupogen. Continue to monitor CBC.
[2018-10-02] MEDS: Topiramate 25 MG Tablet PO SCH (20:10)
[2018-10-03 00:48] LABS: Toxoplasma Ab, IgM Negative (Negative)
[2018-10-03] MEDS: oxyCODONE/Acetaminophen 10/325 Tablet PO PRN ×3 (06:39→21:44)
--- NOTE | 2018-10-03 07:41 | P.PNONC ---
Subjective Interval history: Patient still has intermittent headache. He is feeling better overall. He remains afebrile. He has no chest pain or shortness of breath. He denies any bleeding. Objective Vital Signs/Intake & Output: Vital Signs 10/02/18 08:00 10/02/18 09:09 10/02/18 12:00 Temperature 98.1 F Pulse Rate 75 70 Respiratory Rate 16 16 16 Blood Pressure 124/75 112/68 Pulse Oximetry 91 L 91 L 10/02/18 16:00 10/02/18 20:00 10/03/18 00:00 Temperature 98.4 F 97.6 F 97.5 F L Pulse Rate 80 80 87 Respiratory Rate 16 20 17 Blood Pressure 180/95 H 150/79 H 136/84 Pulse Oximetry 94 L 95 92 L 10/03/18 02:11 10/03/18 04:00 Temperature 97.2 F L Pulse Rate 73 Respiratory Rate 18 21 Blood Pressure 141/83 H Pulse Oximetry 98 Intake & Output 10/02/18 10/03/18 10/03/18 18:59 06:59 18:59 Intake Total 1220 / 1220 Balance 1220 / 1220 Weight 100.6 kg Intake: Oral 1220 / 1220 Other: # Voids 4 5 Date of Last Bowel Movement 10/02/18 # Bowel Movements 2 Result Diagrams: 10/02/18 08:43 10/02/18 08:43 Laboratory Results: Laboratory Results - last 24 hr 10/01/18 10/01/18 10/02/18 15:28 15:28 08:43 WBC 8.2 RBC 3.37 L Hgb 11.2 L Hct 31.9 L MCV 94.5 D MCH 33.2 MCHC 35.2 RDW 14.8 Plt Count 79 L MPV 9.2 Prelim Diff (Auto) Slide review pending Neut % (Auto) 81.8 H Lymph % (Auto) 8.9 L [place] % (Auto) 5.7 Eos % (Auto) 2.6 Baso % (Auto) 1.0 Neut # (Auto) 6.7 Lymph # (Auto) 0.7 L [place] # (Auto) 0.5 Eos # (Auto) 0.2 Baso # (Auto) 0.1 WBC Differential Manual diff final Seg Neuts % (Manual) 71 H Band Neuts % (Manual) 17 H Lymphocytes % (Manual) 6 L Monocytes % (Manual) 5 Metamyelocytes % (Man) 1 Abs Neuts (Manual) 7.3 Differential Comment . Toxic Granulation 1+ H Platelet Estimate Low L Platelet Morphology Normal Tear Drop Cells 1+ H Ovalocytes 1+ H Sodium Potassium Chloride Carbon Dioxide Anion Gap BUN Creatinine Estimated GFR Random Glucose Calcium DOMENIC Screen Neg Toxoplasma IgM Ab Negative 10/02/18 08:43 WBC RBC Hgb Hct MCV MCH MCHC RDW Plt Count MPV Prelim Diff (Auto) Neut % (Auto) Lymph % (Auto) [place] % (Auto) Eos % (Auto) Baso % (Auto) Neut # (Auto) Lymph # (Auto) [place] # (Auto) Eos # (Auto) Baso # (Auto) WBC Differential Seg Neuts % (Manual) Band Neuts % (Manual) Lymphocytes % (Manual) Monocytes % (Manual) Metamyelocytes % (Man) Abs Neuts (Manual) Differential Comment Toxic Granulation Platelet Estimate Platelet Morphology Tear Drop Cells Ovalocytes Sodium 142 Potassium 3.4 L Chloride 105 Carbon Dioxide 29.1 Anion Gap 8 BUN 10 Creatinine 0.82 Estimated GFR Greater than 89 Random Glucose 79 Calcium 8.7 DOMENIC Screen Toxoplasma IgM Ab Culture Results: Microbiology 09/25/18 21:40 Aerobic Blood Culture - Final Blood - Peripheral No growth in 5 days Anaerobic Blood Culture - Final No growth in 5 days 09/25/18 21:45 Aerobic Blood Culture - Final Blood - Peripheral No growth in 5 days Anaerobic Blood Culture - Final No growth in 5 days Medications: Active Medications Generic Name Dose Route Start Last Admin Trade Name Freq PRN Reason Stop Dose Admin Fluconazole 400 mg 10/02/18 16:00 10/02/18 15:46 Diflucan PO 400 mg DAILY [facility] Administration Lactobacillus Acidophilus 1 tab 09/27/18 13:00 10/02/18 18:53 Lactinex PO Not Given TID MIONR Melatonin 5 mg 09/27/18 10:54 09/27/18 22:15 Melatonin PO 5 mg HS PRN Administration INSOMNIA Morphine Sulfate 2 mg 09/27/18 10:46 10/02/18 08:05 Morphine Inj IV.PUSH 2 mg Q4H PRN Administration BREAKTHROUGH PAIN Ondansetron HCl 4 mg 09/26/18 01:06 09/30/18 17:06 Zofran Inj IV.PUSH 4 mg Q6H PRN Administration NAUSEA OR VOMITING Oxycodone/Acetaminophen 1 tab 09/27/18 10:46 10/03/18 06:39 Percocet 10/325 Mg PO 1 tab Q4H PRN Administration Pain 7 to 10 Oxycodone/Acetaminophen 1 tab 09/27/18 10:46 09/27/18 18:18 Percocet 5/325 Mg PO 1 tab Q4H PRN Administration Pain 3 to 6 Sodium Chloride 2 ml 10/01/18 21:00 10/02/18 20:10 Ns Flush IV.FLUSH 2 ml BID [facility] Administration Topiramate 50 mg 10/02/18 21:00 10/02/18 20:10 Topamax PO 50 mg BID [facility] Administration Objective Remarks: GENERAL: Well-nourished, well-developed patient. SKIN: Warm and dry. HEAD: Normocephalic. EYES: No scleral icterus. No injection or drainage. NECK: Supple, trachea midline. No JVD or lymphadenopathy. LYMPHATIC: No adenopathy. CARDIOVASCULAR: Regular rate and rhythm without murmurs. RESPIRATORY: Breath sounds equal bilaterally. No accessory muscle use. GASTROINTESTINAL: Abdomen soft, non-tender, nondistended. EXTREMITIES: No cyanosis, or edema. MUSCULOSKELETAL: Adequate muscle tone. NEUROLOGICAL: No obvious focal deficit. Awake, alert, and oriented x3. PSYCHIATRIC: Appropriate mood and affect; insight and judgment normal. Assessment/Plan - Plan 48-year-old male patient with a history of HIV/AIDS and noncompliance with treatment. Admitted to the hospital with complaints of headache, fever, shortness of breath, nonproductive cough and diarrhea. Hematology was consulted to render an opinion regarding patient with pancytopenia. Recommendations: 1. Pancytopenia, status post Neupogen injection. He had received 2 injection of Neupogen. ANC increased to 7300. Neupogen discontinued. Hemoglobin 11.2, platelets 79,000. Repeat CBC is pending. Continue to monitor for now. 2. Iron and vitamin studies within normal limits. 3. Monitor CBC. 4. Antibiotics per infectious disease.
[2018-10-03] MEDS: Sodium Chloride 0.9% 2 ML Flush BID IV.FLUSH SCH ×2 (08:23→21:44)
[2018-10-03] MEDS: Lactobacillus Acidophilus/L. Spores Tablet PO SCH ×3 (08:23→17:18)
[2018-10-03] MEDS: Topiramate 25 MG Tablet PO SCH ×2 (08:23→21:44)
--- NOTE | 2018-10-03 09:59 | MR ---
EXAM DATE: 10/03/2018 9:29 AM EST AGE/SEX: 48 years / Male INDICATIONS: . Cervical spondylosis. CLINICAL DATA: This is the patient's subsequent encounter. Patient reports that signs and symptoms h ave been present for 4 - 6 days and indicates a pain score of 3/10. MEDICAL/SURGICAL HISTORY: HIV. Hepatitis C. Chronic obstructive pulmonary disease. None. COMPARISON: No prior exams available for comparison. TECHNIQUE: Multiplanar, multisequence MRI examination of the cervical spine was performed without co ntrast. FINDINGS: Vertebrae: Normal vertebral body height. Homogeneous marrow signal. Alignment: Normal. Cord: Normal configuration and signal. Post Fossa: The cerebellar tonsils are normal in position. C2-C3: The thecal sac has a normal configuration. There is no evidence of disc herniation or spinal canal stenosis. The neural foramina are patent bilaterally. C3-C4: Minimal diffuse disc osteophyte complex is noted. No spinal stenosis or focal disc herniation is noted. Mild right neuroforaminal narrowing is noted. Facet joint hypertrophy is noted and is slig htly more prominent on the right than the left. C4-C5: Minimal diffuse disc osteophyte complex is noted. No spinal stenosis or focal disc herniation is noted. Mild bilateral foraminal narrowing is noted. Mild facet joint hypertrophy is noted bilater ally. C5-C6: Minimal diffuse disc osteophyte complex is noted. No spinal stenosis or focal disc herniation is noted. Mild left neuroforaminal narrowing is noted. Mild facet joint hypertrophy is noted which i s slightly worse on the left than the right. C6-C7: The thecal sac has a normal configuration. There is no evidence of disc herniation or spinal canal stenosis. The neural foramina are patent bilaterally. C7-T1: No epidural impressions seen. CONCLUSION: 1. Minimal diffuse disc osteophyte complexes at C3-4, C4-C5 and C5-6. 2. Mild right neuroforaminal narrowing at C3-4, mild left neuroforaminal narrowing at C5-6 and mild bilateral foraminal narrowing at C4-C5. Electronically signed by: Thong Winters MD 10/03/2018 9:58 AM EST
--- NOTE | 2018-10-03 11:28 | P.PNIM ---
Subjective Interval history: Patient still complains of headache. Reports no further diarrhea. No abdominal pain. Tolerating well. Would like to get some sleep. Physical Exam Vital signs: Last Vital Signs Temp 98.6 F 10/03/18 08:00 Pulse 88 10/03/18 08:00 Resp 20 10/03/18 08:00 BP 121/72 10/03/18 08:00 Pulse Ox 98 10/03/18 08:00 Intake & Output 10/01/18 10/02/18 10/03/18 10/04/18 06:59 06:59 06:59 06:59 Intake Total 1197.5 / 1197.5 700 / 700 1220 / 1220 Output Total 1000 / 1000 Balance 197.5 / 197.5 700 / 700 1220 / 1220 Weight 102.5 kg 100.6 kg 100.6 kg Narrative: GENERAL: NAD, A&Ox3 HEAD: Normocephalic. NECK: Supple, trachea midline. No lymphadenopathy. Full range of motion. EYES: No scleral icterus. No injection or drainage. CARDIOVASCULAR: Regular rate and rhythm without murmurs, gallops, or rubs. RESPIRATORY: Breath sounds equal bilaterally. No accessory muscle use. GASTROINTESTINAL: Abdomen soft, non-tender, nondistended. Normoactive bowel sounds MUSCULOSKELETAL: No cyanosis, or edema. SKIN: Warm and dry. NEURO: Sleepy, received Ativan prior to MRI this morning, awakes easily to voice , did sit up and moved all 4 extremities. No focal neurological deficits. Results Labs CBC & Chem 7: 10/02/18 08:43 10/02/18 08:43 Imaging Imaging: Impressions Cervical Spine MRI 10/03/18 00:00 CONCLUSION: 1. Minimal diffuse disc osteophyte complexes at C3-4, C4-C5 and C5-6. 2. Mild right neuroforaminal narrowing at C3-4, mild left neuroforaminal narrowing at C5-6 and mild bilateral foraminal narrowing at C4-C5. Assessment and Plan Plan 48-year-old male admitted secondary to sepsis, fever and headache in setting of HIV Acute sepsis Fever of Uncertain Origin Improving Continue to monitor vital signs Continue to treat for infection, currently on empiric Diflucan Appreciate IDs recommendations. Suspected meningitis with associated headache Immunocompromise status HIV -patient refusing antiretrovirals Continue Diflucan, ID has discontinued Rocephin, and vancomycin. ID following Patient refuses lumbar puncture MRI ordered by ID revealed a new development of solitary signal in the subcortical white matter of the left mid convexity parietal region, consulted Neurology for further recommendations. Discussed with radiology, Dr. Winters who feels the differential diagnosis in this age group would be a new infectious process versus subacute lacunar infarct. Neurology recommends repeating MRI of the brain in 1-2 months of follow-up with this solitary signal Toxoplasma IG AB currently pending, cryptococcus ag screen negative DOMENIC and RF negative For his continued cephalgia, neurology is recommending MRI of the C-spine for further evaluation. Diarrhearesolving May be related to antibiotics Screen for C. Diff pending Start probiotic Lactinex Transaminitis Improved Follow LFTs Diabetes mellitus type 2 Fasting blood sugars has been well controlled. Insulin sliding scale Diabetic diet Neutropenia-improved after given Neupogen x2 . Appreciate hematology oncology evaluation. Likely due to his HIV status and acute infection. Will continue to monitor. Anxiety Bipolar disorder Depression Xanax as needed DVT prophylaxis SCDs, Discharge Planning: home when medically stable Progress Note: Quality VTE Deep Vein Thrombosis/Pulmonary Embolism Present on Admission: No
--- NOTE | 2018-10-03 11:34 | P.PNIM ---
Subjective Interval history: Patient reports he is sleepy. He continues to have headache. No abdominal pain. Reports diarrhea resolving. Physical Exam Vital signs: Last Vital Signs Temp 98.6 F 10/03/18 08:00 Pulse 88 10/03/18 08:00 Resp 20 10/03/18 08:00 BP 121/72 10/03/18 08:00 Pulse Ox 98 10/03/18 08:00 Intake & Output 10/01/18 10/02/18 10/03/18 10/04/18 06:59 06:59 06:59 06:59 Intake Total 1197.5 / 1197.5 700 / 700 1220 / 1220 Output Total 1000 / 1000 Balance 197.5 / 197.5 700 / 700 1220 / 1220 Weight 102.5 kg 100.6 kg 100.6 kg Narrative: GENERAL: This is a well-nourished, well-developed patient, in no apparent distress. CARDIOVASCULAR: Regular rate and rhythm RESPIRATORY: Clear to auscultation. Breath sounds equal bilaterally. No wheezes , rales, or rhonchi. GASTROINTESTINAL: Abdomen soft, non-tender, nondistended. Normal active bowel sounds MUSCULOSKELETAL: Extremities without clubbing, cyanosis, or edema. NEURO: Sleepy but awakes to voice stimuli and then sits up and moves bilateral upper extremity lower extremities Results Labs CBC & Chem 7: 10/02/18 08:43 10/02/18 08:43 Imaging Imaging: Impressions Cervical Spine MRI 10/03/18 00:00 CONCLUSION: 1. Minimal diffuse disc osteophyte complexes at C3-4, C4-C5 and C5-6. 2. Mild right neuroforaminal narrowing at C3-4, mild left neuroforaminal narrowing at C5-6 and mild bilateral foraminal narrowing at C4-C5. Assessment and Plan Plan 48-year-old male admitted secondary to sepsis, fever and headache in setting of HIV Acute sepsis Fever of Uncertain Origin Improving Continue to monitor vital signs Continue to treat for infection, currently on empiric Diflucan Appreciate IDs recommendations. Suspected meningitis with associated headache Immunocompromise status HIV -patient refusing antiretrovirals Continue Diflucan, ID has discontinued Rocephin, and vancomycin. ID following Patient refuses lumbar puncture MRI ordered by ID revealed a new development of solitary signal in the subcortical white matter of the left mid convexity parietal region, consulted Neurology for further recommendations. Discussed with radiology, Dr. Winters who feels the differential diagnosis in this age group would be a new infectious process versus subacute lacunar infarct. Neurology, Dr. Qiuros is recommending repeat MRI of the brain in 1-2 months to follow-up with a solitary signal abnormality Toxoplasma IG AB currently pending, cryptococcus ag screen negative DOMENIC and RF negative For his persistent cephalgia, neurology is recommending MRI of the C-spine for further evaluation Diarrheaimproving May be related to antibiotics Screen for C. Diff pending Start probiotic Lactinex Transaminitis Improved Follow LFTs Diabetes mellitus type 2 Fasting blood sugars has been well controlled. Insulin sliding scale Diabetic diet Neutropenia-improved after given Neupogen x2. Appreciate hematology oncology evaluation. Likely due to his HIV status and acute infection. Will continue monitor. Anxiety Bipolar disorder Depression Xanax as needed DVT prophylaxis SCDs, Discharge Planning: home when medically stable Progress Note: Quality VTE Deep Vein Thrombosis/Pulmonary Embolism Present on Admission: No
[2018-10-03] MEDS ORDERED: Morphine Inj 4 MG/ML Vial IV.PUSH PRN (11:37)
--- NOTE | 2018-10-03 15:05 | P.PNID ---
Subjective Remarks: Patient notes that his headache is mild. Afebrile. Denies chills. MRI notes. Solitary signal abnormality in the subcortical white matter of the left mid convexity parietal region without enhancement and without restricted diffusion. Interval development of a 1.7 cm nonenhancing lesion in the anterior left nares. DOMENIC negative. RF negative. HSV antibody and cryptococcus antigen are negative. Toxo IGM negative. Rash improved. Ampicillin was discontinued. This is a 48-year-old white male with HIV disease and low CD4 count. The patient came to the emergency department for evaluation of headache. He states that the headache began 5 days ago and persisted and he had some neck stiffness and therefore he felt likely that he had meningitis. He reports that he had meningitis in his 20s and that he felt as if his symptoms were similar. He had a low-grade fever as well and some diarrhea. He reports that the headache is in the left temporal area of the head. He also states that he has felt that he may have been bitten by an insect prior to the start of the headache. He reports that the insect bite is located at the left temporal area where he points to the headache as well. The patient appears to be a poor historian. He also notes that his temperature max was 103.2 degrees at home. His temperature in the emergency department was 100.3 and then it was to 102.7 The patient had attempted lumbar puncture in te ED , which was unsuccessful. He refused repeat attempt at LP. The patient had admission for headaches in August and also in April 2018 and workup was negative. Allergies/Adverse Reactions: Allergies haloperidol Allergy (Severe, Verified 09/25/18 17:57) Swelling TONGUE SWELLING - Per pt. Objective Vital Signs 10/02/18 16:00 10/02/18 20:00 10/03/18 00:00 Temperature 98.4 F 97.6 F 97.5 F L Pulse Rate 80 80 87 Respiratory Rate 16 20 17 Blood Pressure 180/95 H 150/79 H 136/84 Pulse Oximetry 94 L 95 92 L 10/03/18 02:11 10/03/18 04:00 10/03/18 07:55 Temperature 97.2 F L Pulse Rate 73 Respiratory Rate 18 21 16 Blood Pressure 141/83 H Pulse Oximetry 98 10/03/18 08:00 10/03/18 12:00 Temperature 98.6 F 98.0 F Pulse Rate 88 83 Respiratory Rate 20 20 Blood Pressure 121/72 128/82 Pulse Oximetry 98 94 L Intake & Output 10/02/18 10/03/18 10/03/18 18:59 06:59 18:59 Intake Total 1220 / 1220 Balance 1220 / 1220 Weight 100.6 kg Intake: Oral 1220 / 1220 Other: # Voids 4 5 Date of Last Bowel Movement 10/02/18 # Bowel Movements 2 09/25/18 21:40 Blood - Peripheral Aerobic Blood Culture - Final No growth in 5 days 09/25/18 21:40 Blood - Peripheral Anaerobic Blood Culture - Final No growth in 5 days 09/25/18 21:45 Blood - Peripheral Aerobic Blood Culture - Final No growth in 5 days 09/25/18 21:45 Blood - Peripheral Anaerobic Blood Culture - Final No growth in 5 days Lab - Hematology Results 10/01/18 10/02/18 15:28 08:43 WBC 8.2 RBC 3.37 L Hgb 11.2 L Hct 31.9 L MCV 94.5 D MCH 33.2 MCHC 35.2 RDW 14.8 Plt Count 79 L MPV 9.2 Prelim Diff (Auto) Slide review pending Neut % (Auto) 81.8 H Lymph % (Auto) 8.9 L [place] % (Auto) 5.7 Eos % (Auto) 2.6 Baso % (Auto) 1.0 Neut # (Auto) 6.7 Lymph # (Auto) 0.7 L [place] # (Auto) 0.5 Eos # (Auto) 0.2 Baso # (Auto) 0.1 WBC Differential Manual diff final Seg Neuts % (Manual) 71 H Band Neuts % (Manual) 17 H Lymphocytes % (Manual) 6 L Monocytes % (Manual) 5 Metamyelocytes % (Man) 1 Abs Neuts (Manual) 7.3 Differential Comment . Toxic Granulation 1+ H Platelet Estimate Low L Platelet Morphology Normal Tear Drop Cells 1+ H Ovalocytes 1+ H ESR 39 H Lab - Chemistry Results 10/01/18 10/02/18 06:35 08:43 Sodium 142 Potassium 3.4 L Chloride 105 Carbon Dioxide 29.1 Anion Gap 8 BUN 10 Creatinine 0.82 Estimated GFR Greater than 89 Random Glucose 79 Calcium 8.7 Iron 114 TIBC 329 % Saturation 34.7 Ferritin 531 H Vitamin B12 312 Folate 11.9 Imaging: ITS Impressions Chest X-Ray 09/25/18 21:26 CONCLUSION: No acute cardiopulmonary disease. There is no evidence of pneumonia. Head CT 09/25/18 21:26 CONCLUSION: 1. Negative noncontrast head CT. . Abdomen/Pelvis CT 09/26/18 02:06 CONCLUSION: 1. Nonobstructing left renal stones. Renal cysts. 2. Splenomegaly 3. Fat-containing umbilical hernia. Head MRI 09/30/18 00:00 CONCLUSION: 1. Interval development of a solitary signal abnormality in the subcortical white matter of the left mid convexity parietal region without enhancement and without restricted diffusion. 2. Interval development of a 1.7 cm nonenhancing lesion in the anterior left nares which could represent a cutaneous lesion or anterior nasal polyp. 3. Stable left maxillary and sphenoid sinus disease. Cervical Spine MRI 10/03/18 00:00 CONCLUSION: 1. Minimal diffuse disc osteophyte complexes at C3-4, C4-C5 and C5-6. 2. Mild right neuroforaminal narrowing at C3-4, mild left neuroforaminal narrowing at C5-6 and mild bilateral foraminal narrowing at C4-C5. Physical Exam: PHYSICAL EXAMINATION: GENERAL: No acute distress. HEENT: Head atraumatic. Extraocular movements grossly intact. Pupils reactive to light. No icterus. No conjunctival erythema. NOSE: decreased swelling at the L nare without erythema or induration. Oropharynx: Moist mucosa. No thrush. No visible lesions. NECK: Supple. No adenopathy. No swelling. LUNGS: Clear breath sounds. HEART: Regular S1 and S2, without audible murmurs, rubs, or gallops. ABDOMEN: Obese, soft, positive bowel sounds, nontender. EXTREMITIES: No clubbing, cyanosis, or edema. SKIN: Skin rash resolved. NEUROLOGIC: No gross focal finding. PSYCHIATRIC: Calm and cooperative. Assessment and Plan - Plan IMPRESSION: 1. Headache and fever in patient with human immunodeficiency virus/acquired immune deficiency syndrome and reported neck stiffness. Etiology ?. He appears better. I don't know if the response is due to Diflucan. Cannot determine if this is fungal meningitis because we did no get CSF for analysis. 2. Diffuse rash, probably secondary to medication. Rash improved Ampicillin was stopped. The patient was concerned about possible meningitis. However, to determine whether he has meningitis, a lumbar puncture is necessary. He adamantly refuses to have a lumbar puncture attempted again. He was made aware that we cannot determine whether he has meningitis without the information from a lumbar puncture. He expresses that he understands that, but would not allow a lumbar puncture to be performed. 3. Neutropenia. HIV immunosuppression. Started on Neupogen. RECOMMENDATIONS: 1. Continue empiric Diflucan change to PO to complete 10 days. 2. Monitor toxoplasma titer. He can be discharge once the blood counts improve. The patient has decided against treatment for HIV. He states that he does not want to be on any medications to treat the virus. He tells me that he takes Bactrim and Azithromycin which he has supply at home.
--- NOTE | 2018-10-03 21:19 | P.PNNEU ---
Subjective Subjective Comments: no change in headaches Active Medications: Active Medications Acetaminophen (Tylenol) 650 mg PO Q6H PRN PRN Reason: temp>100.4 pain 1 to 2 Al Hydroxide/Mg Hydroxide (Milk Of Magnesia Liq) 30 ml PO Q12H PRN PRN Reason: Mild Constipation Alprazolam (Xanax) 0.5 mg PO HS PRN PRN Reason: INSOMNIA Bisacodyl (Dulcolax Supp) 10 mg RECTAL DAILY PRN PRN Reason: SEVERE CONSITIPATION Dextrose (D50w Vial) 50 ml IV.PUSH UNSCH PRN PRN Reason: PER HYPOGLYCEMIA PROTOCOL Fluconazole (Diflucan) 400 mg PO DAILY [facility] Last Admin: 10/03/18 08:23 Dose: 400 mg Glucagon (Glucagon Inj) 1 mg OTHER PRN PRN PRN Reason: for Hypoglycemia Protocol Lactobacillus Acidophilus (Lactinex) 1 tab PO TID [facility] Last Admin: 10/03/18 17:18 Dose: 1 tab Lactulose (Lactulose Liq) 30 ml PO DAILY PRN PRN Reason: SEVERE CONSITIPATION Melatonin (Melatonin) 5 mg PO HS PRN PRN Reason: INSOMNIA Last Admin: 09/27/18 22:15 Dose: 5 mg Morphine Sulfate (Morphine Inj) 2 mg IV.PUSH Q8H PRN PRN Reason: BREAKTHROUGH PAIN Ondansetron HCl (Zofran Inj) 4 mg IV.PUSH Q6H PRN PRN Reason: NAUSEA OR VOMITING Last Admin: 09/30/18 17:06 Dose: 4 mg Oxycodone/Acetaminophen (Percocet 10/325 Mg) 1 tab PO Q4H PRN PRN Reason: Pain 7 to 10 Last Admin: 10/03/18 17:54 Dose: 1 tab Oxycodone/Acetaminophen (Percocet 5/325 Mg) 1 tab PO Q4H PRN PRN Reason: Pain 3 to 6 Last Admin: 09/27/18 18:18 Dose: 1 tab Sennosides (Senokot) 17.2 mg PO Q12H PRN PRN Reason: Moderate Constipation Sodium Chloride (Ns Flush) 2 ml IV.FLUSH BID [facility] Last Admin: 10/03/18 08:23 Dose: 2 ml Sodium Chloride (Ns Flush) 2 ml IV.FLUSH PRN PRN PRN Reason: FLUSH AFTER USING IV ACCESS Topiramate (Topamax) 50 mg PO BID [facility] Last Admin: 10/03/18 08:23 Dose: 50 mg Allergies/Adverse Reactions: Allergies Allergy/AdvReac Type Severity Reaction Status Date / Time haloperidol Allergy Severe Swelling Verified 09/25/18 17:57 Physical Exam Vital signs: Vital Signs 10/03/18 00:00 10/03/18 02:11 10/03/18 04:00 Temperature 97.5 F L 97.2 F L Pulse Rate 87 73 Respiratory Rate 17 18 21 Blood Pressure 136/84 141/83 H Pulse Oximetry 92 L 98 10/03/18 07:55 10/03/18 08:00 10/03/18 12:00 Temperature 98.6 F 98.0 F Pulse Rate 88 83 Respiratory Rate 16 20 20 Blood Pressure 121/72 128/82 Pulse Oximetry 98 94 L 10/03/18 16:00 10/03/18 18:30 10/03/18 20:00 Temperature 99.1 F 97.9 F Pulse Rate 89 75 Respiratory Rate 20 16 18 Blood Pressure 128/88 126/68 Pulse Oximetry 99 93 L Intake & Output 10/03/18 10/03/18 10/04/18 06:59 18:59 06:59 Weight 100.6 kg Other: # Voids 5 - Routine Neurological Exam Present: alert, oriented X3, CN II-XII intact, moving all extremities, normal tone Objective Radiology Results: MRI cervical spine--spondylosis at several levels with no cord compression Laboratory Results - last 24 hr 10/01/18 15:28 Toxoplasma IgM Ab Negative Review/Management - Review/Management Plan: headaches may be cervicogenic from cervical spondylosis and would continue topamax. If no improvement consider occipital nerve block Given HIV status I recommended LP but he refuses Repeat MRI brain next 1-2 month to follow up
[2018-10-04] MEDS: oxyCODONE/Acetaminophen 10/325 Tablet PO PRN ×4 (05:32→21:28)
--- NOTE | 2018-10-04 08:06 | P.PNONC ---
Subjective Interval history: Patient still has headache. Denies chest pain or shortness of breath. He remains afebrile. He denies any nausea vomiting. He has no abdominal pain. Objective Vital Signs/Intake & Output: Vital Signs 10/03/18 12:00 10/03/18 16:00 10/03/18 18:30 Temperature 98.0 F 99.1 F Pulse Rate 83 89 Respiratory Rate 20 20 16 Blood Pressure 128/82 128/88 Pulse Oximetry 94 L 99 10/03/18 20:00 10/04/18 00:00 10/04/18 03:46 Temperature 97.9 F 98 F Pulse Rate 75 Respiratory Rate 18 20 16 Blood Pressure 126/68 125/66 Pulse Oximetry 93 L 94 L 10/04/18 04:00 Temperature 97.3 F L Pulse Rate 70 Respiratory Rate 20 Blood Pressure 113/64 Pulse Oximetry 93 L Intake & Output 10/03/18 10/04/18 10/04/18 18:59 06:59 18:59 Weight 94.9 kg Other: # Voids 3 Result Diagrams: 10/02/18 08:43 10/02/18 08:43 Laboratory Results: Laboratory Results - last 24 hr 10/01/18 15:28 Toxoplasma IgG Ab 135.00 H Imaging Studies: Impressions Cervical Spine MRI 10/03/18 00:00 CONCLUSION: 1. Minimal diffuse disc osteophyte complexes at C3-4, C4-C5 and C5-6. 2. Mild right neuroforaminal narrowing at C3-4, mild left neuroforaminal narrowing at C5-6 and mild bilateral foraminal narrowing at C4-C5. Medications: Active Medications Generic Name Dose Route Start Last Admin Trade Name Freq PRN Reason Stop Dose Admin Fluconazole 400 mg 10/02/18 16:00 10/03/18 08:23 Diflucan PO 400 mg DAILY [facility] Administration Lactobacillus Acidophilus 1 tab 09/27/18 13:00 10/03/18 17:18 Lactinex PO 1 tab TID [facility] Administration Melatonin 5 mg 09/27/18 10:54 09/27/18 22:15 Melatonin PO 5 mg HS PRN Administration INSOMNIA Ondansetron HCl 4 mg 09/26/18 01:06 09/30/18 17:06 Zofran Inj IV.PUSH 4 mg Q6H PRN Administration NAUSEA OR VOMITING Oxycodone/Acetaminophen 1 tab 09/27/18 10:46 10/04/18 05:32 Percocet 10/325 Mg PO 1 tab Q4H PRN Administration Pain 7 to 10 Oxycodone/Acetaminophen 1 tab 09/27/18 10:46 09/27/18 18:18 Percocet 5/325 Mg PO 1 tab Q4H PRN Administration Pain 3 to 6 Sodium Chloride 2 ml 10/01/18 21:00 10/03/18 21:44 Ns Flush IV.FLUSH 2 ml BID [facility] Administration Topiramate 50 mg 10/02/18 21:00 10/03/18 21:44 Topamax PO 50 mg BID [facility] Administration Objective Remarks: GENERAL: Well-nourished, well-developed patient. SKIN: Warm and dry. HEAD: Normocephalic. EYES: No scleral icterus. No injection or drainage. NECK: Supple, trachea midline. No JVD or lymphadenopathy. LYMPHATIC: No adenopathy. CARDIOVASCULAR: Regular rate and rhythm without murmurs. RESPIRATORY: Breath sounds equal bilaterally. No accessory muscle use. GASTROINTESTINAL: Abdomen soft, non-tender, nondistended. EXTREMITIES: No cyanosis, or edema. MUSCULOSKELETAL: Adequate muscle tone. NEUROLOGICAL: No obvious focal deficit. Awake, alert, and oriented x3. PSYCHIATRIC: Appropriate mood and affect; insight and judgment normal. Assessment/Plan - Plan 48-year-old male patient with a history of HIV/AIDS and noncompliance with treatment. Admitted to the hospital with complaints of headache, fever, shortness of breath, nonproductive cough and diarrhea. Hematology was consulted to render an opinion regarding patient with pancytopenia. Recommendations: 1. Pancytopenia, status post Neupogen injection. He had received 2 injection of Neupogen. ANC increased to 7300. Neupogen discontinued. Hemoglobin 11.2, platelets 79,000. Repeat CBC is pending today. Continue to monitor for now. Iron and vitamin studies within normal limits. 2. Monitor CBC. 3. Continue antibiotics per infectious disease.
[2018-10-04] MEDS: Lactobacillus Acidophilus/L. Spores Tablet PO SCH ×3 (08:24→17:16)
[2018-10-04] MEDS: Topiramate 25 MG Tablet PO SCH ×2 (08:24→21:29)
[2018-10-04] MEDS: Sodium Chloride 0.9% 2 ML Flush BID IV.FLUSH SCH ×2 (08:25→21:29)
--- NOTE | 2018-10-04 10:52 | P.PNIM ---
Subjective Interval history: Patient reports still with headache but getting better. No fevers or chills. No further diarrhea. Still declining LP. Physical Exam Vital signs: Last Vital Signs Temp 97.9 F 10/04/18 08:00 Pulse 69 10/04/18 08:00 Resp 16 10/04/18 09:28 BP 131/69 10/04/18 08:00 Pulse Ox 98 10/04/18 08:00 Intake & Output 10/02/18 10/03/18 10/04/18 10/05/18 06:59 06:59 06:59 06:59 Intake Total 700 / 700 1220 / 1220 Balance 700 / 700 1220 / 1220 Weight 100.6 kg 100.6 kg 94.9 kg Narrative: GENERAL: This is a well-nourished, well-developed patient, in no apparent distress. CARDIOVASCULAR: Regular rate and rhythm RESPIRATORY: Clear to auscultation. Breath sounds equal bilaterally. No wheezes , rales, or rhonchi. GASTROINTESTINAL: Abdomen soft, non-tender, nondistended. Normal active bowel sounds MUSCULOSKELETAL: Extremities without clubbing, cyanosis, or edema. NEURO: Alert and oriented x4 and moves bilateral upper extremity lower extremities. Results Labs CBC & Chem 7: 10/02/18 08:43 10/02/18 08:43 Assessment and Plan Plan 48-year-old male admitted secondary to sepsis, fever and headache in setting of HIV Acute sepsis Fever of Uncertain Origin Improving Continue to monitor vital signs Continue to treat for infection, currently on empiric Diflucan to complete for a total of 10 days upon discharge. Appreciate IDs recommendations. Suspected meningitis with associated headache Immunocompromise status HIV -patient refusing antiretrovirals Continue Diflucan, ID has discontinued Rocephin, and vancomycin. ID following Patient refuses lumbar puncture MRI ordered by ID revealed a new development of solitary signal in the subcortical white matter of the left mid convexity parietal region, consulted Neurology for further recommendations. Discussed with radiology, Dr. Winters who feels the differential diagnosis in this age group would be a new infectious process versus subacute lacunar infarct. Neurology, Dr. Quiros is recommending repeat MRI of the brain in 1-2 months to follow-up with a solitary signal abnormality He has also recommended placing patient on Topamax. MRI of the C-spine showed cervical spondylosis and may have some component of cervicogenic Toxoplasma IG Ab is 135 and IgM ab is negative, cryptococcus ag screen negative DOMENIC and RF negative Discussed with patient will wean off his IV pain medication today for discharge planning in the morning. Diarrheaimproving and resolving May be related to antibiotics Screen for C. Diff pending Continue probiotic Lactinex Transaminitis Improved Follow LFTs Diabetes mellitus type 2 Fasting blood sugars has been well controlled. Insulin sliding scale Diabetic diet Neutropenia-improved after given Neupogen x2. Appreciate hematology oncology evaluation. Likely due to his HIV status and acute infection. Will continue monitor. Anxiety Bipolar disorder Depression Xanax as needed DVT prophylaxis SCDs, Discharge Planning: home when medically stable Progress Note: Quality VTE Deep Vein Thrombosis/Pulmonary Embolism Present on Admission: No
[2018-10-04 12:22] LABS: Baso % (Auto) 0.6 % (0.0-2.0); Eos # (Auto) 0.3 th/mm3 (0.0-0.4); Eos % (Auto) 3.4 % (0.0-4.0); Hematocrit 36.5 % (39.0-51.0); Hemoglobin 12.7 gm/dL (13.0-17.0); Lymph # (Auto) 1.1 th/mm3 (1.0-4.8); Lymph % (Auto) 13.9 % (9.0-44.0); Mean Corpuscular HGB Conc 34.8 % (32.0-36.0); Mean Corpuscular Hemoglobin 32.9 pg (27.0-34.0); Mean Corpuscular Volume 94.5 fL (80.0-100.0); Mono # (Auto) 0.6 th/mm3 (0.0-0.9); Mono % (Auto) 7.4 % (0.0-8.0); Neut # (Auto) 5.8 th/mm3 (1.8-7.7); Neut % (Auto) 74.7 % (16.0-70.0); Platelet Count 82 th/mm3 (150-450); Red Blood Count 3.87 mil/mm3 (4.50-5.90); Red Cell Distribution Width 15.3 % (11.6-17.2); White Blood Count 7.8 th/mm3 (4.0-11.0)
[2018-10-04 12:39] LABS: Calcium 8.6 mg/dL (8.5-10.1); Carbon Dioxide 27.5 meq/L (21.0-32.0)
[2018-10-04 12:43] LABS: Potassium 3.7 meq/L (3.5-5.1)
[2018-10-04 13:38] LABS: Eosinophils 1 % (0-4); Lymphocytes 10 % (9-44); Monocytes 6 % (0-8); Platelet Estimate Normal (Normal); Platelet Morphology Normal (Normal); RBC Morphology Normal (Normal)
[2018-10-04] MEDS: Morphine Sulfate Inj 2 MG/ML Vial IV.PUSH PRN (16:24)
[2018-10-05] MEDS: oxyCODONE/Acetaminophen 10/325 Tablet PO PRN ×2 (01:29→09:51)
[2018-10-05] MEDS: Morphine Sulfate Inj 2 MG/ML Vial IV.PUSH PRN (05:10)
[2018-10-05 05:31] VITALS: RESP 18
[2018-10-05 08:05] VITALS: BP 108/64; PULSE 85; TEMP 98.2; O2SAT 95
[2018-10-05] MEDS: Lactobacillus Acidophilus/L. Spores Tablet PO SCH ×2 (09:21→11:59)
[2018-10-05] MEDS: Topiramate 25 MG Tablet PO SCH (09:21)
[2018-10-05] MEDS: Sodium Chloride 0.9% 2 ML Flush BID IV.FLUSH SCH (09:22)
--- NOTE | 2018-10-05 10:23 | P.DS ---
DS: Providers Date of admission: 09/26/18 01:02 Primary care physician: UNKNOWN Consults: 09/26/18 01:09 Consult to Infectious Diseases Routine Consulting Provider: Pop Toribio Reason for Consultation: aids, suspected meningitis Notified:: Service Spoke with:: MEL Date Notified:: 09/26/18 Time Notified:: 01:13 Ordering Provider: CHRISTIAN 09/26/18 01:56 HUB Only Consult Order Routine Consulting Provider: Cono[facility],Insurance 09/28/18 23:21 Consult to Psychiatry Routine Consulting Provider: Zheng Aguilar Reason for Consultation: hx bipolar, currently manic Notified:: Office Spoke with:: Henrique Date Notified:: 09/28/18 Time Notified:: 23:41 Ordering Provider: DANNY 09/30/18 15:51 HUB Only Consult Order Routine Consulting Provider: [email or web address] 10/01/18 13:42 Consult to Hematology Routine Consulting Provider: Norm Garcia Reason for Consultation: neutropenia, hx of HIV and infection Notified:: Office Spoke with:: OFE Date Notified:: 10/01/18 Time Notified:: 13:52 Ordering Provider: VALERIA 10/02/18 08:11 Consult to Neurology Routine Consulting Provider: Sergio Quiros Reason for Consultation: headache with new MRI solitary signal; hx of HIV Notified:: Office Spoke with:: KENNEDY Date Notified:: 10/02/18 Time Notified:: 08:26 Ordering Provider: VALERIA Brief History from admission: 48-year-old male with a history of HIV, AIDS, most recent CD4 count of 20, noncompliant with medications, hepatitis C, COPD, bipolar, presents with a 4- day history of severe whole head headache, fevers up to 103.2 at home, fatigue, shortness of breath with nonproductive cough, nausea, vomiting, diarrhea. He is concerned he has meningitis. He reports history of meningitis in the past. He denies chest pain, vision changes, abdominal pain. DS: Diagnosis Discharge Diagnosis (1) Cervical spondylosis: Status: Acute (2) Abnormal MRI of head: Status: Acute (3) HIV (human immunodeficiency virus infection): Status: Acute (4) Fever of unknown origin (FUO): Status: Acute DS: Summary 48-year-old white male with a history of HIV was made secondary to sepsis, fever and headache in setting of HIV. Due to the fact that patient refused lumbar puncture we were unable to do further workup to evaluate for meningitis. Patient was placed on initial IV vancomycin and Rocephin and later switched to empirical Diflucan. Infectious disease physician was consulted Dr. Toribio who recommended to continue 10 more days of p.o. Diflucan. He is to continue also with empiric Bactrim and azithromycin. He has declined and refusing antiretrovirals. MRI of the brain was ordered by infectious disease secondary to persistent headache which revealed a new development of solitary signal in the subcortical white matter of the left mid convexity parietal region. Neurology, Dr. Quiros was consulted who recommended a repeat MRI of the brain in 1-2 months to follow- up with the solitary signal abnormality. Toxoplasma titers would done with IgA antibody of 135 and Ig M antibiotics is negative. Cryptococcus antigen screen was negative. DOMENIC and RF was negative. Dr. Quiros also recommend an MRI of the C-spine which shows cervical spondylosis and prescription of Topamax was recommended. During during the hospitalization patient also had diarrhea which may be related to the antibiotics given and C. difficile was negative. Probiotics Lactinex was given during this hospitalization. In addition, patient developed neutropenia and Neupogen was given and a hematology consultation was requested. This was likely attributed to his HIV and his sepsis status. He has recovered well after Neupogen was given. At this time, patient has gained maximum benefit from hospitalization and is ready to be transition to home. Time Spent with Patient Total time spent providing and/or coordinating discharge services: Less than 30 minutes Quality: VTE Deep Vein Thrombosis/Pulmonary Embolism Present on Admission: No Exam Narrative Exam Narrative: GENERAL: This is a well-nourished, well-developed patient, in no apparent distress. CARDIOVASCULAR: Regular rate and rhythm without murmurs, gallops, or rubs. RESPIRATORY: Clear to auscultation. Breath sounds equal bilaterally. No wheezes , rales, or rhonchi. GASTROINTESTINAL: Abdomen soft, non-tender, nondistended. Normal active bowel sounds MUSCULOSKELETAL: Extremities without clubbing, cyanosis, or edema. NEURO: Alert & Oriented x4 to person, place, time, situation. Moves all ext x4 Results Labs on day of discharge: Labs from last 24 hours 10/04/18 10/04/18 11:55 11:55 WBC 7.8 RBC 3.87 L Hgb 12.7 L Hct 36.5 L MCV 94.5 MCH 32.9 MCHC 34.8 RDW 15.3 Plt Count 82 L MPV 10.0 Prelim Diff (Auto) Slide review pending Neut % (Auto) 74.7 H Lymph % (Auto) 13.9 [place] % (Auto) 7.4 Eos % (Auto) 3.4 Baso % (Auto) 0.6 Neut # (Auto) 5.8 Lymph # (Auto) 1.1 [place] # (Auto) 0.6 Eos # (Auto) 0.3 Baso # (Auto) 0.0 WBC Differential Manual diff final Seg Neuts % (Manual) 58 Band Neuts % (Manual) 25 H Lymphocytes % (Manual) 10 Monocytes % (Manual) 6 Eosinophils % (Manual) 1 Abs Neuts (Manual) 6.5 Differential Comment . Platelet Estimate Normal Platelet Morphology Normal RBC Morphology Normal Sodium 145 Potassium 3.7 Chloride 111 H Carbon Dioxide 27.5 Anion Gap 7 BUN 19 H Creatinine 0.96 Estimated GFR 83 L Random Glucose 94 Calcium 8.6 Impressions ITS Impressions Chest X-Ray 09/25/18 21:26 CONCLUSION: No acute cardiopulmonary disease. There is no evidence of pneumonia. Head CT 09/25/18 21:26 CONCLUSION: 1. Negative noncontrast head CT. . Abdomen/Pelvis CT 09/26/18 02:06 CONCLUSION: 1. Nonobstructing left renal stones. Renal cysts. 2. Splenomegaly 3. Fat-containing umbilical hernia. Head MRI 09/30/18 00:00 CONCLUSION: 1. Interval development of a solitary signal abnormality in the subcortical white matter of the left mid convexity parietal region without enhancement and without restricted diffusion. 2. Interval development of a 1.7 cm nonenhancing lesion in the anterior left nares which could represent a cutaneous lesion or anterior nasal polyp. 3. Stable left maxillary and sphenoid sinus disease. Cervical Spine MRI 10/03/18 00:00 CONCLUSION: 1. Minimal diffuse disc osteophyte complexes at C3-4, C4-C5 and C5-6. 2. Mild right neuroforaminal narrowing at C3-4, mild left neuroforaminal narrowing at C5-6 and mild bilateral foraminal narrowing at C4-C5. Discharge Plan Discharge Disposition Patient Disposition: Discharge Home Discharge Condition Condition: Good Discharge Order Discharge Orders: Discharge Order (Routine); Ordered 10/05/18 Ordered By: Dorothea Escobar Physicians Team Primary Care Provider: UNKNOWN, Attending Provider: Dorothea Escobar Other Providers: Pop Toribio ; [facility],Insurance ; Norm Garcia ; Sergio Quiros Rxs /Orders / Referrals /Forms Prescriptions: New fluconazole 200 mg Tablet 400 mg PO DAILY Qty: 7 RF: 0 topiramate [Topamax] 25 mg Tablet 50 mg PO BID Qty: 60 RF: 0 sulfamethoxazole-trimethoprim [Bactrim DS] 800-160 mg tablet 1 tab PO 3XW Qty: 30 RF: 0 azithromycin [Zithromax] 600 mg tablet 1,200 mg PO QWEEK Qty: 8 RF: 0 oxycodone-acetaminophen 10-325 mg Tablet 1 tab PO Q4H PRN (Reason: Acute Pain) Qty: 18 RF: 0 gabapentin 300 mg capsule 600 mg PO TID Qty: 60 RF: 0 Referrals: UNKNOWN, [Primary Care Provider] - See Instructions Discharge Instructions Patient Printed Instructions: Sulfamethoxazole/Trimethoprim (By mouth), Oxycodone/Acetaminophen (By mouth), Fluconazole (By mouth), Topiramate (By mouth ) Status ED Status: Left Department
== END 2018-10-05 12:13 | disposition home or self-care (01) | DRG 974 ==
LOC: NEPC 17:47 → NEDA 09-26 01:02 → NEDH 09-26 05:01 → N05 09-26 13:28
PROVIDERS: ADMIT Family Medicine; ATTEND Family Medicine
DX: Z86.14 Personal history of Methicillin resistant Staphylococcus aureus infection; J44.9 Chronic obstructive pulmonary disease, unspecified; R50.9 Fever, unspecified; B20 Human immunodeficiency virus [HIV] disease; G03.9 Meningitis, unspecified; W57.XXXA Bitten or stung by nonvenomous insect and other nonvenomous arthropods, initial encounter; F17.210 Nicotine dependence, cigarettes, uncomplicated; E83.51 Hypocalcemia; G47.00 Insomnia, unspecified; A41.9 Sepsis, unspecified organism; F31.9 Bipolar disorder, unspecified; L27.0 Generalized skin eruption due to drugs and medicaments taken internally; R44.3 Hallucinations, unspecified; F43.10 Post-traumatic stress disorder, unspecified; Z91.19 Patient's noncompliance with other medical treatment and regimen; Z86.61 Personal history of infections of the central nervous system; B19.20 Unspecified viral hepatitis C without hepatic coma; Z91.14 Patient's other noncompliance with medication regimen; E87.6 Hypokalemia; R00.0 Tachycardia, unspecified; E11.42 Type 2 diabetes mellitus with diabetic polyneuropathy; Z66 Do not resuscitate; F39 Unspecified mood [affective] disorder; M47.812 Spondylosis without myelopathy or radiculopathy, cervical region
CPT/HCPCS: 70450; 70553; 71010; 71045; 72141; 74176; 80048; 80053; 80202; 81001; 82550; 82607; 82728; 82746; 82948; 82962; 83540; 83550; 83605; 83735; 85025; 85651; 85652; 86038; 86403; 86430; 86431; 86695; 86696; 86777; 86778; 87040; 87081; 87275; 87276; 87327; 87804; 87880; 87899; 90765; 90766; 90767; 90775; 94640; 94664; 94665; 96365; 96366; 96367; 96375; 99291; A9585; J0133; J0285; J0290; J0692; J0696; J0713; J1440; J1441; J1442; J1450; J2060; J2270; J2405; J3370; J7030; J7040; J7060

== ENCOUNTER 2018-10-07 07:39 | Inpatient (IN) ==
[2018-10-07] MEDS ORDERED: Acetaminophen 325 MG Tablet PO ONE (07:49)
[2018-10-07] MEDS ORDERED: ACYCLOVIR IV.SIG ONE (07:49)
[2018-10-07] MEDS ORDERED: SODIUM CHLOR 0.9% IV.SIG ONE (07:49)
--- NOTE | 2018-10-07 07:56 | ED ---
HPI General Chief Complaint: Altered Mental Status Stated Complaint: Medical Time Seen by Provider: 10/07/18 07:49 Source: EMS and old records reviewed Limitations: altered mental status History of Present Illness HPI Narrative: The patient is a 48-year-old male with HIV, hep C noncompliant with medications that was brought in by even after he had a seizure and fever. Patient was at home and his mom called after he had a 2-minute seizure. EMS reports that he was confused on arrival not answering many questions. The patient was discharged on the 2 days ago where he was admitted for headache and fever in setting of HIV. He had an evaluation by infectious diseases and titers negative for toxoplasma and cryptococcus was discharged with instructions to take antibiotics as well as Diflucan empirically which the patient has not done. Paramedics also reported that he took a large amount of Percocets reportedly yesterday however patient does not seem to have pinpoint pupils or respiratory depression. He appears acutely ill not answering questions. Reviewed previous admission and appears that at that time the patient had refused a lumbar puncture as well as antiretrovirals and had an MRI that showed a new development of solitary signal in the subcortical white matter of the left mid convexity parietal region. Information was obtained from previous admission. Patient on arrival appears confused tachycardic with a temperature of 101.0 rectal temp MD complaint: Reports seizure Onset (ago): minute(s) (30) Duration of episode: 2 -: minutes(s) Witnessed: yes - by other (sister) Trauma: No Seizure History: Reports none Place: home Possible Precipitating Event: Reports other (non compliant with medications. Drug abuse) Treatments prior to arrival: Reports none Related Data Previous Rx's Medication Instructions Recorded azithromycin [Zithromax] 1,200 mg PO QWEEK #8 tab 10/05/18 fluconazole 400 mg PO DAILY #7 tab 10/05/18 gabapentin 600 mg PO TID #60 cap 10/05/18 oxycodone-acetaminophen 1 tab PO Q4H PRN #18 tab 10/05/18 sulfamethoxazole-trimethoprim 1 tab PO 3XW #30 tab 10/05/18 [Bactrim DS] topiramate [Topamax] 50 mg PO BID #60 tab 10/05/18 Allergies Allergy/AdvReac Type Severity Reaction Status Date / Time haloperidol Allergy Severe Swelling Verified 09/25/18 17:57 Review of Systems ROS Unobtainable ROS Unobtainable: unobtainable due to mental condition and unobtainable due to mental status PMFSH History History Provided By: 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 Medical History Medical History AIDS (Acute) Anxiety (Acute) Bipolar 1 disorder (Acute) COPD (chronic obstructive pulmonary disease) (Acute) Depression (Acute) HIV disease (Acute) Hepatitis C (Acute) History of MRSA infection (Acute) Neuropathy (Acute) PTSD (post-traumatic stress disorder) (Acute) Pneumocystosis pneumonia (Acute) Suicidal ideations (Acute) Surgical History Surgical History No history of previous surgery (Acute) Family History Family History Other Diabetes mellitus Social History Social History Substance History: Past History Second Hand Smoke Exposure: Yes Smoking Status: Unknown if ever smoked Tobacco Type: Cigarettes How Often Do You Have a Drink Containing Alcohol: Unable to Obtain Hx Recent Travel: No Recent Travel in [facility] within the Last 8 Weeks: No Recent Out of Country Travel within the Last 8 Weeks: No Exam Narrative Exam Narrative: GENERAL: Awake obtunded unkempt appearing acutely ill not answering questions SKIN: Focused skin assessment warm clammy HEAD: Atraumatic. Normocephalic. EYES: Pupils 3 mm equal and round. No scleral icterus. No injection or drainage. ENT: No nasal bleeding or discharge. Mucous membranes pink and moist. NECK: Trachea midline. No JVD. CARDIOVASCULAR: Tachycardia with regular rhythm. No murmur appreciated. RESPIRATORY: Tachypnea with no accessory muscle use. Clear to auscultation. Breath sounds equal bilaterally. GASTROINTESTINAL: Abdomen soft, non-tender, nondistended. Hepatic and splenic margins not palpable. MUSCULOSKELETAL: No obvious deformities. No clubbing. No cyanosis. No edema. NEUROLOGICAL: Awake moves all extremities does not follow commands tracks around the room pupils responsive to light. Distracts to painful stimuli. Opens eyes and follows around the room. Does not follow commands. Does not answer questions. PSYCHIATRIC: Unable to assess Course Reevaluation(s) Reevaluation #1: Patient meets sepsis criteria fluid resuscitation was initiated per sepsis protocol was started on broad-spectrum antibiotics for presumptive meningitis. Time: 09:00 Reevaluation #2: The patient appears to be doing better at this time she is alert and oriented. He is interactive he is responding to questions. Stated he took a bunch of pills yesterday all day. He does not state why. When asked if he is in pain he states all over. Pupils are also pinpoint but the patient is able to protect his airway and breathing without any problems at this time. Time: 09:55 Initial Documented Vital Signs Temperature 101.0 F H 10/07/18 07:49 Pulse Rate 154 H 10/07/18 07:49 Respiratory Rate 46 H 10/07/18 07:49 Blood Pressure 182/80 H 10/07/18 07:49 Pulse Oximetry 98 10/07/18 07:49 Last Documented Vital Signs Temperature 103.1 F H 10/07/18 10:15 Pulse Rate 124 H 10/07/18 15:52 Respiratory Rate 40 H 10/07/18 15:52 Blood Pressure 95/55 L 10/07/18 11:00 Pulse Oximetry 100 10/07/18 15:53 Critical Care Time Critical Care Time: Yes Total Critical Care Time: 30 Attestation: Aggregate critical care time was 30 minutes. Time to perform other separately billable procedures was not included in the critical care time. My time did not include minutes spent treating any other patients simultaneously or on activities that did not directly contribute to the patient's treatment. The services I provided to this patient were to treat and/or prevent clinically significant deterioration that could result in: I provided critical care services requiring my management, as noted below: Chart data review, documentation time, medication orders and management, vital sign assessments/reviewing monitor data, ordering and reviewing lab tests, ordering and interpreting/reviewing x-rays and diagnostic studies, care of the patient and discussion of the patient with the admitting physicians. Medical Decision Making MDM Narrative Medical decision making narrative: He refused LP when he was able to make some decisions and he is not a very safe patient to do the procedure without. Patient febrile with seizure immunocompromise and recent titers suggestive of IgG positive toxo plasmapheresis noncompliant with profound lactic acidosis meeting Sirs criteria on arrival. Due to possible bacterial meningitis we give the patient broad-spectrum antibiotics as well as antivirals. Fluconazole was added by critical care attending. Sedation since he does not follow commands and moves around. Lactate was elevated. Was given fluids and antibiotics. Tachycardic with minimal improvement. His map is above 65. Tachypnea was noted. ABGs 7.4 03/14//17/-6.5. Pt is refusing LP, intubation and Central line at tis time. He does appear to be confused at this time but we will respect his wishes since there is documentation from previous visits that the patient refused interventions on previous. Addition the patient had several cultures from 09 25 that were negative. He was given Diflucan at that time which was not started in the emergency department by us but initiated by the ICU attending. Patient hemodynamically stable at time of admission. Patient also had a troponin of 0.12 he did not have any complaint of chest pain could be possibly secondary to his severe sepsis. EKG was negative for signs of acute ischemia. Initial lactate 4.1 improved to 2.9 and 2.3 subsequently after fluid resuscitation. Broad-spectrum antibiotics were started. Antibiotics was started on antifungals were started and he was admitted for further evaluation and management. Patient would likely have a lumbar puncture by IR. ICU attending discussed plan of care with sister. Medical Screen Exam Complete: Yes Emergency Medical Condition: Yes Medical Records Medical records reviewed: Yes I reviewed the patient's medical records. Lab Data Lab results reviewed: Yes I reviewed the patient's lab results. Result diagrams: 10/07/18 13:35 10/07/18 13:35 Lab Results 10/07/18 10/07/18 10/07/18 Range/Units 08:00 08:05 08:05 WBC 12.5 H (4.0-11.0) th/mm3 RBC 3.83 L (4.50-5.90) mil/mm3 Hgb 12.3 L (13.0-17.0) gm/dL Hct 36.4 L (39.0-51.0) % MCV 95.0 (80.0-100.0) fL MCH 32.1 (27.0-34.0) pg MCHC 33.8 (32.0-36.0) % RDW 15.3 (11.6-17.2) % Plt Count 71 L (150-450) th/mm3 MPV 10.0 (7.0-11.0) fL Prelim Diff (Auto) Slide review pending Neut % (Auto) 76.1 H (16.0-70.0) % Lymph % (Auto) 9.0 (9.0-44.0) % Reeves % (Auto) 14.5 H (0.0-8.0) % Eos % (Auto) 0.0 (0.0-4.0) % Baso % (Auto) 0.4 (0.0-2.0) % Neut # (Auto) 9.5 H (1.8-7.7) th/mm3 Lymph # (Auto) 1.1 (1.0-4.8) th/mm3 Reeves # (Auto) 1.8 H (0.0-0.9) th/mm3 Eos # (Auto) 0.0 (0.0-0.4) th/mm3 Baso # (Auto) 0.1 (0.0-0.2) th/mm3 WBC Differential Manual diff final Seg Neuts % (Manual) 43 (16-70) % Band Neuts % (Manual) 38 H (0-6) % Lymphocytes % (Manual) 5 L (9-44) % Monocytes % (Manual) 14 H (0-8) % Metamyelocytes % (Man) (0-1) % Myelocytes % (Man) (0-0) % Abs Neuts (Manual) 10.1 H (1.8-7.7) th/mm3 Differential Comment . Toxic Granulation 2+ H (None) Platelet Estimate Low L (Normal) Platelet Morphology Normal (Normal) RBC Morphology Normal (Normal) PT 12.3 H (9.8-11.6) sec INR 1.2 Ratio APTT 34.3 H (23.4-31.7) sec Puncture Site Patient Temperature O2 Saturation (90-100) % ABG pH (7.380-7.420) ABG pCO2 (38-42) mmHg ABG pO2 (61-120) mmHg ABG HCO3 (22-26) mmol/L ABG O2 Content (12.0-20.0) Vol % ABG Base Excess (-2-2) mmol/L ABG Methemoglobin (0-2) % Hemoglobin (12.0-16.0) G/DL Carboxyhemoglobin (0-4) % O2 Delivery Device Vent Setting Inspired O2 % Critical Value Sodium (136-145) meq/L Potassium (3.5-5.1) meq/L Chloride (98-107) meq/L Carbon Dioxide (21.0-32.0) meq/L Anion Gap (5-15) meq/L BUN (7-18) mg/dL Creatinine (0.60-1.30) mg/dL Estimated GFR (>89) mL/min Random Glucose (74-106) mg/dL Lactic Acid 4.1 H* (0.4-2.0) mmol/L Calcium (8.5-10.1) mg/dL Prot Corrected Calcium (8.5-10.1) mg/dL Magnesium (1.5-2.5) mg/dL Total Bilirubin (0.2-1.0) mg/dL AST (15-37) U/L ALT (12-78) U/L Alkaline Phosphatase (45-117) U/L Troponin I (0.02-0.05) ng/mL Total Protein (6.4-8.2) g/dL Albumin (3.4-5.0) g/dL Urine Color (Yellw/Straw) Urine Clarity (Clear) Urine pH (5.0-8.5) Ur Specific [place] (1.002-1.035) Urine Protein (Neg-Trace) mg/dL Urine Glucose (UA) (Negative) mg/dL Urine Ketones (Negative) mg/dL Urine Occult Blood (Negative) Urine Nitrate (Negative) Urine Bilirubin (Negative) Urine Urobilinogen (Less than 2) mg/dL Ur Leukocyte Esterase (Negative) Urine RBC (0-3) /hpf Amorphous Sediment (None) /hpf Granular Casts (None) /lpf Urine Mucus (Occasional) /lpf Micro UA Comment Ur Microscopic Review Urine Culture Comments Salicylates (2.8-20.0) mg/dL Urine Opiates Screen (Neg) Acetaminophen (10.0-30.0) mcg/mL Ur Barbiturates Screen (Neg) Ur Amphetamines Screen (Neg) U Benzodiazepines Scrn (Neg) Urine Cocaine Screen (Neg) U Cannabinoids Screen (Neg) Serum Alcohol (0-5) mg/dL 10/07/18 10/07/18 10/07/18 Range/Units 08:05 08:05 08:05 WBC (4.0-11.0) th/mm3 RBC (4.50-5.90) mil/mm3 Hgb (13.0-17.0) gm/dL Hct (39.0-51.0) % MCV (80.0-100.0) fL MCH (27.0-34.0) pg MCHC (32.0-36.0) % RDW (11.6-17.2) % Plt Count (150-450) th/mm3 MPV (7.0-11.0) fL Prelim Diff (Auto) Neut % (Auto) (16.0-70.0) % Lymph % (Auto) (9.0-44.0) % Reeves % (Auto) (0.0-8.0) % Eos % (Auto) (0.0-4.0) % Baso % (Auto) (0.0-2.0) % Neut # (Auto) (1.8-7.7) th/mm3 Lymph # (Auto) (1.0-4.8) th/mm3 Reeves # (Auto) (0.0-0.9) th/mm3 Eos # (Auto) (0.0-0.4) th/mm3 Baso # (Auto) (0.0-0.2) th/mm3 WBC Differential Seg Neuts % (Manual) (16-70) % Band Neuts % (Manual) (0-6) % Lymphocytes % (Manual) (9-44) % Monocytes % (Manual) (0-8) % Metamyelocytes % (Man) (0-1) % Myelocytes % (Man) (0-0) % Abs Neuts (Manual) (1.8-7.7) th/mm3 Differential Comment Toxic Granulation (None) Platelet Estimate (Normal) Platelet Morphology (Normal) RBC Morphology (Normal) PT (9.8-11.6) sec INR Ratio APTT (23.4-31.7) sec Puncture Site Patient Temperature O2 Saturation (90-100) % ABG pH (7.380-7.420) ABG pCO2 (38-42) mmHg ABG pO2 (61-120) mmHg ABG HCO3 (22-26) mmol/L ABG O2 Content (12.0-20.0) Vol % ABG Base Excess (-2-2) mmol/L ABG Methemoglobin (0-2) % Hemoglobin (12.0-16.0) G/DL Carboxyhemoglobin (0-4) % O2 Delivery Device Vent Setting Inspired O2 % Critical Value Sodium 148 H (136-145) meq/L Potassium 3.8 (3.5-5.1) meq/L Chloride 117 H (98-107) meq/L Carbon Dioxide 19.7 L (21.0-32.0) meq/L Anion Gap 11 (5-15) meq/L BUN 34 H (7-18) mg/dL Creatinine 1.62 H (0.60-1.30) mg/dL Estimated GFR 46 L (>89) mL/min Random Glucose 112 H (74-106) mg/dL Lactic Acid (0.4-2.0) mmol/L Calcium 8.3 L (8.5-10.1) mg/dL Prot Corrected Calcium (8.5-10.1) mg/dL Magnesium 1.8 (1.5-2.5) mg/dL Total Bilirubin 0.9 (0.2-1.0) mg/dL AST 133 H (15-37) U/L ALT 36 (12-78) U/L Alkaline Phosphatase 57 (45-117) U/L Troponin I 0.12 H (0.02-0.05) ng/mL Total Protein 8.1 (6.4-8.2) g/dL Albumin 2.8 L (3.4-5.0) g/dL Urine Color (Yellw/Straw) Urine Clarity (Clear) Urine pH (5.0-8.5) Ur Specific [place] (1.002-1.035) Urine Protein (Neg-Trace) mg/dL Urine Glucose (UA) (Negative) mg/dL Urine Ketones (Negative) mg/dL Urine Occult Blood (Negative) Urine Nitrate (Negative) Urine Bilirubin (Negative) Urine Urobilinogen (Less than 2) mg/dL Ur Leukocyte Esterase (Negative) Urine RBC (0-3) /hpf Amorphous Sediment (None) /hpf Granular Casts (None) /lpf Urine Mucus (Occasional) /lpf Micro UA Comment Ur Microscopic Review Urine Culture Comments Salicylates 2.1 L (2.8-20.0) mg/dL Urine Opiates Screen (Neg) Acetaminophen Less than 2.0 L (10.0-30.0) mcg/mL Ur Barbiturates Screen (Neg) Ur Amphetamines Screen (Neg) U Benzodiazepines Scrn (Neg) Urine Cocaine Screen (Neg) U Cannabinoids Screen (Neg) Serum Alcohol Less than 3 (0-5) mg/dL 10/07/18 10/07/18 10/07/18 Range/Units 08:15 08:15 11:15 WBC (4.0-11.0) th/mm3 RBC (4.50-5.90) mil/mm3 Hgb (13.0-17.0) gm/dL Hct (39.0-51.0) % MCV (80.0-100.0) fL MCH (27.0-34.0) pg MCHC (32.0-36.0) % RDW (11.6-17.2) % Plt Count (150-450) th/mm3 MPV (7.0-11.0) fL Prelim Diff (Auto) Neut % (Auto) (16.0-70.0) % Lymph % (Auto) (9.0-44.0) % Reeves % (Auto) (0.0-8.0) % Eos % (Auto) (0.0-4.0) % Baso % (Auto) (0.0-2.0) % Neut # (Auto) (1.8-7.7) th/mm3 Lymph # (Auto) (1.0-4.8) th/mm3 Reeves # (Auto) (0.0-0.9) th/mm3 Eos # (Auto) (0.0-0.4) th/mm3 Baso # (Auto) (0.0-0.2) th/mm3 WBC Differential Seg Neuts % (Manual) (16-70) % Band Neuts % (Manual) (0-6) % Lymphocytes % (Manual) (9-44) % Monocytes % (Manual) (0-8) % Metamyelocytes % (Man) (0-1) % Myelocytes % (Man) (0-0) % Abs Neuts (Manual) (1.8-7.7) th/mm3 Differential Comment Toxic Granulation (None) Platelet Estimate (Normal) Platelet Morphology (Normal) RBC Morphology (Normal) PT (9.8-11.6) sec INR Ratio APTT (23.4-31.7) sec Puncture Site Patient Temperature O2 Saturation (90-100) % ABG pH (7.380-7.420) ABG pCO2 (38-42) mmHg ABG pO2 (61-120) mmHg ABG HCO3 (22-26) mmol/L ABG O2 Content (12.0-20.0) Vol % ABG Base Excess (-2-2) mmol/L ABG Methemoglobin (0-2) % Hemoglobin (12.0-16.0) G/DL Carboxyhemoglobin (0-4) % O2 Delivery Device Vent Setting Inspired O2 % Critical Value Sodium (136-145) meq/L Potassium (3.5-5.1) meq/L Chloride (98-107) meq/L Carbon Dioxide (21.0-32.0) meq/L Anion Gap (5-15) meq/L BUN (7-18) mg/dL Creatinine (0.60-1.30) mg/dL Estimated GFR (>89) mL/min Random Glucose (74-106) mg/dL Lactic Acid 2.9 H (0.4-2.0) mmol/L Calcium (8.5-10.1) mg/dL Prot Corrected Calcium (8.5-10.1) mg/dL Magnesium (1.5-2.5) mg/dL Total Bilirubin (0.2-1.0) mg/dL AST (15-37) U/L ALT (12-78) U/L Alkaline Phosphatase (45-117) U/L Troponin I (0.02-0.05) ng/mL Total Protein (6.4-8.2) g/dL Albumin (3.4-5.0) g/dL Urine Color [place] (Yellw/Straw) Urine Clarity Cloudy H (Clear) Urine pH 5.0 (5.0-8.5) Ur Specific [place] 1.026 (1.002-1.035) Urine Protein 500 or greater (Neg-Trace) mg/dL Urine Glucose (UA) Negative (Negative) mg/dL Urine Ketones Negative (Negative) mg/dL Urine Occult Blood Large H (Negative) Urine Nitrate Negative (Negative) Urine Bilirubin Negative (Negative) Urine Urobilinogen 2.0 H (Less than 2) mg/dL Ur Leukocyte Esterase Negative (Negative) Urine RBC 44 H (0-3) /hpf Amorphous Sediment Moderate H (None) /hpf Granular Casts 10 (None) /lpf Urine Mucus Few H (Occasional) /lpf Micro UA Comment Cath-culture not ind Ur Microscopic Review Not Reportable Urine Culture Comments Cath-cult not ind Salicylates (2.8-20.0) mg/dL Urine Opiates Screen Neg (Neg) Acetaminophen (10.0-30.0) mcg/mL Ur Barbiturates Screen Neg (Neg) Ur Amphetamines Screen Neg (Neg) U Benzodiazepines Scrn Neg (Neg) Urine Cocaine Screen Pos H (Neg) U Cannabinoids Screen Pos H (Neg) Serum Alcohol (0-5) mg/dL 10/07/18 10/07/18 10/07/18 Range/Units 12:34 13:35 13:35 WBC 11.1 H (4.0-11.0) th/mm3 RBC 3.12 L (4.50-5.90) mil/mm3 Hgb 9.9 L D (13.0-17.0) gm/dL Hct 30.4 L (39.0-51.0) % MCV 97.5 (80.0-100.0) fL MCH 31.8 (27.0-34.0) pg MCHC 32.6 (32.0-36.0) % RDW 15.5 (11.6-17.2) % Plt Count 56 L (150-450) th/mm3 MPV 10.3 (7.0-11.0) fL Prelim Diff (Auto) Manual diff required Neut % (Auto) (16.0-70.0) % Lymph % (Auto) (9.0-44.0) % Reeves % (Auto) (0.0-8.0) % Eos % (Auto) (0.0-4.0) % Baso % (Auto) (0.0-2.0) % Neut # (Auto) (1.8-7.7) th/mm3 Lymph # (Auto) (1.0-4.8) th/mm3 Reeves # (Auto) (0.0-0.9) th/mm3 Eos # (Auto) (0.0-0.4) th/mm3 Baso # (Auto) (0.0-0.2) th/mm3 WBC Differential Manual diff final Seg Neuts % (Manual) 60 (16-70) % Band Neuts % (Manual) 12 H (0-6) % Lymphocytes % (Manual) 5 L (9-44) % Monocytes % (Manual) 7 (0-8) % Metamyelocytes % (Man) 15 H (0-1) % Myelocytes % (Man) 1 H (0-0) % Abs Neuts (Manual) 9.8 H (1.8-7.7) th/mm3 Differential Comment . Toxic Granulation 1+ H (None) Platelet Estimate Low L (Normal) Platelet Morphology Normal (Normal) RBC Morphology (Normal) PT (9.8-11.6) sec INR Ratio APTT (23.4-31.7) sec Puncture Site Right brachial Patient Temperature 98.6 O2 Saturation 96 (90-100) % ABG pH 7.44 H (7.380-7.420) ABG pCO2 26 L (38-42) mmHg ABG pO2 90 (61-120) mmHg ABG HCO3 17 L (22-26) mmol/L ABG O2 Content 14.1 (12.0-20.0) Vol % ABG Base Excess -6.5 L (-2-2) mmol/L ABG Methemoglobin 0.7 (0-2) % Hemoglobin 10.4 L (12.0-16.0) G/DL Carboxyhemoglobin 1.1 (0-4) % O2 Delivery Device Bipap Vent Setting [id number] Inspired O2 40 % Critical Value No Sodium (136-145) meq/L Potassium (3.5-5.1) meq/L Chloride (98-107) meq/L Carbon Dioxide (21.0-32.0) meq/L Anion Gap (5-15) meq/L BUN (7-18) mg/dL Creatinine (0.60-1.30) mg/dL Estimated GFR (>89) mL/min Random Glucose (74-106) mg/dL Lactic Acid 2.3 H (0.4-2.0) mmol/L Calcium (8.5-10.1) mg/dL Prot Corrected Calcium (8.5-10.1) mg/dL Magnesium (1.5-2.5) mg/dL Total Bilirubin (0.2-1.0) mg/dL AST (15-37) U/L ALT (12-78) U/L Alkaline Phosphatase (45-117) U/L Troponin I (0.02-0.05) ng/mL Total Protein (6.4-8.2) g/dL Albumin (3.4-5.0) g/dL Urine Color (Yellw/Straw) Urine Clarity (Clear) Urine pH (5.0-8.5) Ur Specific [place] (1.002-1.035) Urine Protein (Neg-Trace) mg/dL Urine Glucose (UA) (Negative) mg/dL Urine Ketones (Negative) mg/dL Urine Occult Blood (Negative) Urine Nitrate (Negative) Urine Bilirubin (Negative) Urine Urobilinogen (Less than 2) mg/dL Ur Leukocyte Esterase (Negative) Urine RBC (0-3) /hpf Amorphous Sediment (None) /hpf Granular Casts (None) /lpf Urine Mucus (Occasional) /lpf Micro UA Comment Ur Microscopic Review Urine Culture Comments Salicylates (2.8-20.0) mg/dL Urine Opiates Screen (Neg) Acetaminophen (10.0-30.0) mcg/mL Ur Barbiturates Screen (Neg) Ur Amphetamines Screen (Neg) U Benzodiazepines Scrn (Neg) Urine Cocaine Screen (Neg) U Cannabinoids Screen (Neg) Serum Alcohol (0-5) mg/dL 10/07/18 Range/Units 13:35 WBC (4.0-11.0) th/mm3 RBC (4.50-5.90) mil/mm3 Hgb (13.0-17.0) gm/dL Hct (39.0-51.0) % MCV (80.0-100.0) fL MCH (27.0-34.0) pg MCHC (32.0-36.0) % RDW (11.6-17.2) % Plt Count (150-450) th/mm3 MPV (7.0-11.0) fL Prelim Diff (Auto) Neut % (Auto) (16.0-70.0) % Lymph % (Auto) (9.0-44.0) % [place]eves % (Auto) (0.0-8.0) % Eos % (Auto) (0.0-4.0) % Baso % (Auto) (0.0-2.0) % Neut # (Auto) (1.8-7.7) th/mm3 Lymph # (Auto) (1.0-4.8) th/mm3 Reeves # (Auto) (0.0-0.9) th/mm3 Eos # (Auto) (0.0-0.4) th/mm3 Baso # (Auto) (0.0-0.2) th/mm3 WBC Differential Seg Neuts % (Manual) (16-70) % Band Neuts % (Manual) (0-6) % Lymphocytes % (Manual) (9-44) % Monocytes % (Manual) (0-8) % Metamyelocytes % (Man) (0-1) % Myelocytes % (Man) (0-0) % Abs Neuts (Manual) (1.8-7.7) th/mm3 Differential Comment Toxic Granulation (None) Platelet Estimate (Normal) Platelet Morphology (Normal) RBC Morphology (Normal) PT (9.8-11.6) sec INR Ratio APTT (23.4-31.7) sec Puncture Site Patient Temperature O2 Saturation (90-100) % ABG pH (7.380-7.420) ABG pCO2 (38-42) mmHg ABG pO2 (61-120) mmHg ABG HCO3 (22-26) mmol/L ABG O2 Content (12.0-20.0) Vol % ABG Base Excess (-2-2) mmol/L ABG Methemoglobin (0-2) % Hemoglobin (12.0-16.0) G/DL Carboxyhemoglobin (0-4) % O2 Delivery Device Vent Setting Inspired O2 % Critical Value Sodium 151 H (136-145) meq/L Potassium 3.4 L (3.5-5.1) meq/L Chloride 122 H (98-107) meq/L Carbon Dioxide 19.0 L (21.0-32.0) meq/L Anion Gap 10 (5-15) meq/L BUN 29 H (7-18) mg/dL Creatinine 1.33 H (0.60-1.30) mg/dL Estimated GFR 57 L (>89) mL/min Random Glucose 108 H (74-106) mg/dL Lactic Acid (0.4-2.0) mmol/L Calcium 7.1 L* D (8.5-10.1) mg/dL Prot Corrected Calcium 7.5 L (8.5-10.1) mg/dL Magnesium 1.5 (1.5-2.5) mg/dL Total Bilirubin 0.8 (0.2-1.0) mg/dL AST 117 H (15-37) U/L ALT 30 (12-78) U/L Alkaline Phosphatase 43 L (45-117) U/L Troponin I (0.02-0.05) ng/mL Total Protein 6.4 D (6.4-8.2) g/dL Albumin 2.1 L D (3.4-5.0) g/dL Urine Color (Yellw/Straw) Urine Clarity (Clear) Urine pH (5.0-8.5) Ur Specific [place] (1.002-1.035) Urine Protein (Neg-Trace) mg/dL Urine Glucose (UA) (Negative) mg/dL Urine Ketones (Negative) mg/dL Urine Occult Blood (Negative) Urine Nitrate (Negative) Urine Bilirubin (Negative) Urine Urobilinogen (Less than 2) mg/dL Ur Leukocyte Esterase (Negative) Urine RBC (0-3) /hpf Amorphous Sediment (None) /hpf Granular Casts (None) /lpf Urine Mucus (Occasional) /lpf Micro UA Comment Ur Microscopic Review Urine Culture Comments Salicylates (2.8-20.0) mg/dL Urine Opiates Screen (Neg) Acetaminophen (10.0-30.0) mcg/mL Ur Barbiturates Screen (Neg) Ur Amphetamines Screen (Neg) U Benzodiazepines Scrn (Neg) Urine Cocaine Screen (Neg) U Cannabinoids Screen (Neg) Serum Alcohol (0-5) mg/dL Imaging Data Radiologist's impression: Chest X-Ray 10/07/18 07:49 CONCLUSION: Scattered bilateral pulmonary infiltrates. Head CT 10/07/18 07:55 CONCLUSION: 1. Negative CT Head non contrast. 2. Stable compared to recent study on 09/25/2018 . ECG Data EKG Prior to Arrival: No Attestation: I personally reviewed and interpreted this ECG as follows: Interpretation: Sinus tachycardia 151 beats per per second. Incomplete right bundle branch block. Leftward axis. Nonspecific ST-T wave abnormalities. Short MD interval and QTC within normal limits. No signs of acute ischemia on EKG Discharge Plan Discharge Disposition Patient Disposition: 30 Still Patient Discharge Condition Condition: Critical Discharge Details Diagnosis: Toxic metabolic encephalopathy, HIV (human immunodeficiency virus infection), Elevated troponin, Thrombocytopenia, Cocaine abuse, Hypokalemia, MIGUEL ANGEL (acute kidney injury) Physicians Team ED Provider: Brock Roca Primary Care Provider: UNKNOWN, Attending Provider: Wendy Perez Other Providers: Pop Toribio ; Evita Short ; Kylah Osborn Discharge Interventions Interventions: ED Discharge Assessment Last Done: 10/07/18 13:31 Vital Signs Last Done: 10/07/18 09:30 Status ED Status: Left Department Discharge Information Discharge Date/Time: 10/07/18 13:34
[2018-10-07] MEDS ORDERED: Sod Chloride 0.9% Inj 700 ML IV.SIG SCH (08:00)
[2018-10-07] MEDS ORDERED: Sod Chloride 0.9% Inj 1,000 ML IV.SIG SCH ×2 (08:00)
[2018-10-07 08:29] LABS: Baso # (Auto) 0.1 th/mm3 (0.0-0.2); Baso % (Auto) 0.4 % (0.0-2.0); Hematocrit 36.4 % (39.0-51.0); Hemoglobin 12.3 gm/dL (13.0-17.0); Lymph # (Auto) 1.1 th/mm3 (1.0-4.8); Mean Corpuscular HGB Conc 33.8 % (32.0-36.0); Mean Corpuscular Hemoglobin 32.1 pg (27.0-34.0); Mono # (Auto) 1.8 th/mm3 (0.0-0.9); Mono % (Auto) 14.5 % (0.0-8.0); Neut # (Auto) 9.5 th/mm3 (1.8-7.7); Neut % (Auto) 76.1 % (16.0-70.0); Platelet Count 71 th/mm3 (150-450); Red Blood Count 3.83 mil/mm3 (4.50-5.90); Red Cell Distribution Width 15.3 % (11.6-17.2); White Blood Count 12.5 th/mm3 (4.0-11.0)
[2018-10-07 08:42] LABS: Activated Partial Thrombo Time 34.3 sec (23.4-31.7); INR 1.2 Ratio; Prothrombin Time 12.3 sec (9.8-11.6)
[2018-10-07 08:44] LABS: Amorphous Sediment,Urine Moderate /hpf; Bilirubin,Urine Negative (Negative); Clarity,Urine Cloudy (Clear); Color,Urine Amber (Yellw/Straw); Glucose,Urine (UA) Negative (Negative); Leukocyte Esterase,Urine Negative (Negative); Mucus,Urine Few /lpf (Occasional); Nitrite,Urine Negative (Negative); Specific Gravity,Urine 1.026 (1.002-1.035)
[2018-10-07 08:53] LABS: Alanine Aminotransferase 36 U/L (12-78); Albumin 2.8 g/dL (3.4-5.0); Alkaline Phosphatase 57 U/L (45-117); Anion Gap 11 meq/L (5-15); Aspartate Aminotransferase 133 U/L (15-37); Blood Urea Nitrogen 34 mg/dL (7-18); Calcium 8.3 mg/dL (8.5-10.1); Carbon Dioxide 19.7 meq/L (21.0-32.0); Chloride 117 meq/L (98-107); Glomerular Filtration Rate 46 mL/min (>89); Glucose,Random 112 mg/dL (74-106); Magnesium 1.8 mg/dL (1.5-2.5); Potassium 3.8 meq/L (3.5-5.1); Sodium 148 meq/L (136-145); Total Protein 8.1 g/dL (6.4-8.2); Troponin I 0.12 ng/mL (0.02-0.05)
[2018-10-07 09:07] LABS: Amphetamine Screen,Urine Neg (Neg); Barbiturate Screen,Urine Neg (Neg); Cannabinoid Screen,Urine Pos (Neg); Cocaine Screen,Urine Pos (Neg)
[2018-10-07 09:12] LABS: Opiate Screen,Urine Neg (Neg)
--- NOTE | 2018-10-07 09:21 | XR ---
EXAM DATE: 10/07/2018 9:18 AM EST AGE/SEX: 48 years / Male INDICATIONS: Fever, short of breath CLINICAL DATA: This is the patient's initial encounter. Patient reports that signs and symptoms have been present for 1 day and indicates a pain score of Nonresponsive. MEDICAL/SURGICAL HISTORY: Chronic obstructive pulmonary disease. HIV. Hepatitis C. umbilical hernia, AMS Non-responsive. COMPARISON: [facility], CHEST 1V SINGLE AP, 09/25/2018. . FINDINGS: 2 portable frontal views of the chest are blurred by breathing motion artifact. Patchy areas of paren chymal consolidation are seen scattered throughout both lungs but most abundant within the right lowe r lobe. No effusions. Heart is normal in size. Bony structures are unremarkable. CONCLUSION: Scattered bilateral pulmonary infiltrates. Electronically signed by: Burt Queen MD 10/07/2018 9:20 AM EST
[2018-10-07] MEDS ORDERED: Vancomycin Inj 1,000 MG in Sodium Chlor 0.9% Inj 250 ML IV.SIG ONE (09:46)
[2018-10-07] MEDS ORDERED: Acetaminophen 650 MG Supp RECTAL ONE (09:47)
[2018-10-07 09:55] LABS: Lymphocytes 5 % (9-44); Monocytes 14 % (0-8); Platelet Morphology Normal (Normal); RBC Morphology Normal (Normal); Toxic Granulation 2+
[2018-10-07] MEDS ORDERED: Magnesium Sulfate Inj 4 GM in Sodium Chlor 0.9% Inj 92 ML IV.SIG PRN (10:33)
[2018-10-07] MEDS ORDERED: Potassium Phosphate Inj 30 MMOL in Sodium Chlor 0.9% Inj 250 ML IV.SIG PRN (10:33)
[2018-10-07] MEDS ORDERED: Potassium Chloride 25 MEQ Effervescent Tablet PO PRN (10:33)
[2018-10-07] MEDS ORDERED: Magnesium Oxide 400 MG Tablet PO PRN (10:33)
[2018-10-07] MEDS ORDERED: Potassium Chlor 40 mEq Premix 40 MEQ/100 ML PIGGYBACK IV.SIG PRN ×2 (10:33)
[2018-10-07] MEDS ORDERED: Potassium Chlor 20 mEq Premix 20 MEQ/100 ML PIGGYBACK IV.SIG PRN (10:33)
[2018-10-07] MEDS ORDERED: Potassium Phosphate 500 MG Soluble Tablet PO PRN ×2 (10:33)
[2018-10-07] MEDS ORDERED: Sodium Phosphate Inj 30 MMOL in Sodium Chlor 0.9% Inj 250 ML IV.SIG PRN (10:33)
[2018-10-07] MEDS ORDERED: Bisacodyl 10 MG Supp RECTAL PRN (10:33)
[2018-10-07] MEDS ORDERED: Magnesium Sulfate Inj 2 GM in Sodium Chlor 0.9% Inj 96 ML IV.SIG PRN (10:33)
--- NOTE | 2018-10-07 10:50 | P.HPCC ---
History of Present Illness Service: [facility] [place] Primary Care Physician: UNKNOWN Chief Complaint: Seizure, fever History of Present Illness: 48yM with history of HIV and CD4+ count <20 presenting with seizure and fever. The patient was admitted from 09/26-10/05/18 for fever and headache, had an initial attempt at LP performed in the ED but was unsuccessful and subsequently declined any further attempts. He had blood cultures which were negative at 5 days and positive toxoplasma IgG, treated empirically with IV fluconazole and discharged home with PO fluconazole and prophylactic azithromycin and bactrim. The patient is chronic non-compliant with his HIV medications and was reportedly not taking his discharge meds. Today, he was at home and had a 2 minute seizure witnessed by his sister Beata. He was brought to the ED via EMS and had a temp of 101F and heart rate of 150. He was given a dose of vanco, ceftazidime, and acyclovir along with 3L NS bolus. He had a head CT which was unchanged from his previous visit. On my evaluation, the patient is encephalopathic and oriented to name only. He is unable to provide any further meaningful details to HPI. I spoke with the patient's sister Beata, who says that the patient is frequent non-compliant with his medications, reportedly took "a whole bottle of percocet" two days ago (just after discharge), and "hasn't been in his right mind since then. He can't finish a sentence and has been urinating himself". - Diagnosis (1) Acute encephalopathy (2) Seizure (3) HIV (human immunodeficiency virus infection) (4) Sepsis Inpatient Certification: I certify that the inpatient services were ordered in accordance with Medicare regulations governing the order. This includes certification that hospital inpatient services are reasonable and necessary and in the case of services not specified as inpatient-only under 42 CFR 419.22(n), that they are appropriately provided as inpatient services in accordance to with the 2-midnight benchmark under 43 CFR 412.3(e) Estimated Total Length of Stay (Days): 7 Plans for Post Hospital Care: Not yet determined Review of Systems unobtainable due to mental status PMFSH - History History Provided By: Family Member, Medical Record, Aluminum Can Collector / EMT - Medical History Medical History: Medical History (Last Reviewed 10/07/18 @ 11:27 by Wendy Perez DO) AIDS Anxiety Bipolar 1 disorder COPD (chronic obstructive pulmonary disease) Depression HIV disease Hepatitis C History of MRSA infection Neuropathy PTSD (post-traumatic stress disorder) Pneumocystosis pneumonia Suicidal ideations - Surgical History Surgical History: Surgical History (Last Reviewed 10/07/18 @ 11:27 by Wendy Perez DO) No history of previous surgery - Family History Family History: Family History (Last Reviewed 10/07/18 @ 11:27 by Wendy Perez DO) Other Diabetes mellitus - Tobacco History Second Hand Smoke Exposure: Yes Smoking Status: Unknown if ever smoked Tobacco Type: Cigarettes - Alcohol History How Often Do You Have a Drink Containing Alcohol: Unable to Obtain - Substance Use History Substance History: Unable to Obtain - Travel History Recent Travel in the [place] Within the Last 8 Weeks: No Recent Travel Out of the Country Within the Last 8 Weeks: No - Immunization History Tetanus Immunization: Unable to Assess Medications and Allergies Active Medications: Active Medications Acetaminophen (Tylenol) 650 mg PO Q6H PRN PRN Reason: PAIN 1-10 AND/OR FEVER >101F Al Hydroxide/Mg Hydroxide (Milk Of Corby Lielva) 30 ml PO Q12H PRN PRN Reason: Mild Constipation Albuterol (Albuterol Neb (Prn)) 2.5 mg NEB Q2HR NEB PRN PRN Reason: SHORTNESS OF BREATH/WHEEZING Albuterol (Duoneb Neb (Michelle)) 1 ampul NEB Q4HR NEB MICHELLE Azithromycin (Zithromax) 1,200 mg PO QWEEK MICHELLE Bisacodyl (Dulcolax Supp) 10 mg RECTAL DAILY PRN PRN Reason: SEVERE CONSITIPATION Famotidine (Pepcid Pf Inj) 20 mg IV.PUSH Q12HR MICHELLE Famotidine (Pepcid) 20 mg PO BID MICHELLE Heparin Sodium (Porcine) (Heparin Inj) 5,000 units SQ Q8H MICHELLE Sodium Chloride (Ns Inj) 1,000 mls @ 0 mls/hr IV.SIG .Q0M MICHELLE Last Infusion: 10/07/18 09:48 Dose: Infused Sodium Chloride (Ns Inj) 1,000 mls @ 0 mls/hr IV.SIG .Q0M MICHELLE Last Infusion: 10/07/18 09:48 Dose: Infused Sodium Chloride (Ns Inj) 700 mls @ 0 mls/hr IV.SIG .Q0M MICHELLE Last Infusion: 10/07/18 09:48 Dose: Infused Lactated Ringer's (Lr 1000 Ml Inj) 1,000 mls @ 125 mls/hr IV.CONT .Q8H MICHELLE Magnesium Sulfate 4 gm/ Sodium (Chloride) 100 mls @ 50 mls/hr IV.SIG UNSCH PRN PRN Reason: For Magnesium 0.9 - 1.1 mg/dL Potassium Chloride (Kcl 40 Meq Premix Inj) 40 meq in 100 mls @ 25 mls/hr IV.SIG Q2H PRN PRN Reason: For Potassium 2.8 - 3.2 mEq/L Potassium Chloride (Kcl 20 Meq Premix Inj) 20 meq in 100 mls @ 50 mls/hr IV.SIG Q2H PRN PRN Reason: For Potassium 3.3 - 3.5 mEq/L Potassium Chloride (Kcl 40 Meq Premix Inj) 40 meq in 100 mls @ 25 mls/hr IV.SIG UNSCH PRN PRN Reason: For Potassium 3.3 - 3.5 mEq/L Potassium Chloride (Kcl 20 Meq Premix Inj) 20 meq in 100 mls @ 50 mls/hr IV.SIG Q2H PRN PRN Reason: For Potassium 2.8 - 3.2 mEq/L Potassium Phosphate 30 mmol/ (Sodium Chloride) 260 mls @ 42 mls/hr IV.SIG UNSCH PRN PRN Reason: SEE LABEL COMMENTS Sodium Phosphate 30 mmol/ (Sodium Chloride) 260 mls @ 42 mls/hr IV.SIG UNSCH PRN PRN Reason: For Phosphorus < 2.5 mg/dL Magnesium Sulfate 2 gm/ Sodium (Chloride) 100 mls @ 50 mls/hr IV.SIG UNSCH PRN PRN Reason: For Magnesium 1.2 - 1.6 mg/dL Fluconazole (Diflucan 400 Mg Premix Bag) 200 mls @ 100 mls/hr IV.SIG Q24H MICHELLE Lactulose (Lactulose Liq) 30 ml PO DAILY PRN PRN Reason: SEVERE CONSITIPATION Lorazepam (Ativan Inj) 1 mg IV.PUSH ONCE ONE Stop: 10/07/18 10:46 Magnesium Oxide (Mag-Ox) 800 mg PO UNSCH PRN PRN Reason: For Magnesium 1.2 - 1.6 mg/dL Ondansetron HCl (Zofran Inj) 4 mg IV.PUSH Q6H PRN PRN Reason: NAUSEA OR VOMITING Potassium Bicarb/Potassium Chloride (K-Lyte Cl Eff) 50 meq PO UNSCH PRN PRN Reason: For Potassium 3.3 - 3.5 mEq/L Potassium Phosphate (K-Phos Original) 2,000 mg PO Q4H PRN PRN Reason: Phosphorus Less Than 2.5 mg/dL Potassium Phosphate (K-Phos Original) 2,000 mg PO UNSCH PRN PRN Reason: SEE LABEL COMMENTS Senna/Docusate Sodium (Misa-Colace) 1 tab PO BID [facility] Sennosides (Senokot) 17.2 mg PO Q12H PRN PRN Reason: Moderate Constipation Sodium Chloride (Ns Flush) 2 ml IV.FLUSH BID MICHELLE Sodium Chloride (Ns Flush) 2 ml IV.FLUSH PRN PRN PRN Reason: FLUSH AFTER USING IV ACCESS Topiramate (Topamax) 50 mg PO BID MICHELLE Trimethoprim/Sulfamethoxazole (Bactrim Ds) tab PO 3XW MICHELLE Allergies Allergy/AdvReac Type Severity Reaction Status Date / Time haloperidol Allergy Severe Swelling Verified 09/25/18 17:57 Results - Labs CBC & Chem 7: 10/07/18 08:05 10/07/18 08:05 Labs: Short CBC 10/07/18 Range/Units 08:05 WBC 12.5 H (4.0-11.0) th/mm3 Hgb 12.3 L (13.0-17.0) gm/dL Hct 36.4 L (39.0-51.0) % Plt Count 71 L (150-450) th/mm3 BMP 10/07/18 08:05 Sodium 148 H Potassium 3.8 Chloride 117 H Carbon Dioxide 19.7 L BUN 34 H Creatinine 1.62 H Calcium 8.3 L Cardiac Enzymes 10/07/18 Range/Units 08:05 Troponin I 0.12 H (0.02-0.05) ng/mL Liver Function 10/07/18 Range/Units 08:05 Total Bilirubin 0.9 (0.2-1.0) mg/dL AST 133 H (15-37) U/L ALT 36 (12-78) U/L Alkaline Phosphatase 57 (45-117) U/L Albumin 2.8 L (3.4-5.0) g/dL Urine 10/07/18 Range/Units 08:15 Urine Color Valerie (Yellw/Straw) Urine Clarity Cloudy H (Clear) Urine pH 5.0 (5.0-8.5) Ur Specific [facility] 1.026 (1.002-1.035) Urine Protein 500 or greater (Neg-Trace) mg/dL Urine Glucose (UA) Negative (Negative) mg/dL - Imaging Impressions Chest X-Ray 10/07/18 07:49 CONCLUSION: Scattered bilateral pulmonary infiltrates. Exam Vital signs: Vital Signs 10/07/18 07:49 10/07/18 07:58 10/07/18 09:00 Temperature 101.0 F H 101.0 F H Pulse Rate 154 H 150 H 138 H Respiratory Rate 46 H 51 H 49 H Blood Pressure 182/80 H 182/80 H 138/63 Pulse Oximetry 98 98 96 10/07/18 09:30 Temperature Pulse Rate 142 H Respiratory Rate 54 H Blood Pressure 140/62 Pulse Oximetry 96 Intake & Output 10/06/18 10/07/18 10/07/18 18:59 06:59 18:59 Intake Total 3184 / 3184 Balance 3184 / 3184 Weight 81.647 kg Intake: IV 3184 / 3184 Zovirax Inj 1,700 MG In NS Inj 284 / 284 250 ML @ 284 mls/hr IV.SIG ONCE ONE Rx#:[id number] Ampicillin Inj 2,000 MG In NS 100 / 100 Inj 100 ML @ 400 mls/hr IV.SIG ONCE ONE Rx#:[id number] NS Inj 700 ML @ Wide Open IV. 2700 / 2700 SIG .Q0M MICHELLE Rx#:[id number] Tazicef Inj 2,000 MG In NS Inj 100 / 100 100 ML @ 200 mls/hr IV.SIG ONCE ONE Rx#:[id number] Narrative: GEN: Ill-appearing, tachypneic, distressed HEENT: NCAT, pupils 2 mm and reactive bilaterally NECK: No JVD, trachea midline CARDIO: Tachy to 130s, regular, no murmur PULM: Tachypneic to 40s, increased work of breathing, no wheezing or rhonchi, O2 sats 95% on NRB Placed on bipap following my exam ABD/GI: Soft, non-tender, easily reducible umbilical hernia EXT/MSK: No peripheral edema SKIN: Flushed, multiple healing sores/ wounds to lower extremities, no cellulitic changes NEURO: GCS 13 ([id number]), confused, oriented to person only, answers "yes" to most questions regardless of if it's a yes/ no question PSYCH: Mildly agitated Karla VTE Risk Assessment Karla VTE Risk Assessment: No/Low Risk (score <= 1) Mustapharini Risk Assessment Model: Point Value = 1 Point Value = 2 Point Value = 3 Point Value = 5 Age 41-60 Minor surgery BMI > 25 kg/m2 Swollen legs Varicose veins or History of unexplained or recurrent spontaneous Oral contraceptives or hormone replacement Sepsis (< 1 month) Serious lung disease, including pneumonia (< 1 month) Abnormal pulmonary function Acute myocardial infarction Congestive heart failure (< 1 month) History of inflammatory bowel disease Medical patient at bed rest Age 61-74 Arthroscopic surgery Major open surgery (> 45 min) Laparoscopic surgery (> 45 min) Malignancy Confined to bed (> 72 hours) Immobilizing plaster cast Central venous access Age >= 75 History of VTE Family history of VTE Factor V Leiden Prothrombin 10016M Lupus anticoagulant Anticardiolipin antibodies Elevated serum homocysteine Heparin-induced thrombocytopenia Other congenital or acquired thrombophilia Stroke (< 1 month) Elective arthroplasty Hip, pelvis, or leg fracture Acute spinal cord injury (< 1 month) Prophylaxis Regimen: Total Risk Factor Score Risk Level Prophylaxis Regimen 0-1 Low Early ambulation 2 Moderate Order ONE of the following: *Sequential Compression Device (SCD) *Heparin 5000 units SQ BID 3-4 Higher Order ONE of the following medications: *Heparin 5000 units SQ TID *Enoxaparin/Lovenox 40 mg SQ daily (WT < 150 kg, CrCl > 30 mL/min) *Enoxaparin/Lovenox 30 mg SQ daily (WT < 150 kg, CrCl > 10-29 mL/min) *Enoxaparin/Lovenox 30 mg SQ BID (WT < 150 kg, CrCl > 30 mL/min) AND/OR *Sequential Compression Device (SCD) 5 or more Highest Order ONE of the following medications: *Heparin 5000 units SQ TID (Preferred with Epidurals) *Enoxaparin/Lovenox 40 mg SQ daily (WT < 150 kg, CrCl > 30 mL/min) *Enoxaparin/Lovenox 30 mg SQ daily (WT < 150 kg, CrCl > 10-29 mL/min) *Enoxaparin/Lovenox 30 mg SQ BID (WT < 150 kg, CrCl > 30 mL/min) AND *Sequential Compression Device (SCD) Assessment and Plan - Problem List (1) Acute encephalopathy Code(s): G93.40 - Encephalopathy, unspecified Status: Acute (2) Seizure Code(s): R56.9 - Unspecified convulsions Status: Acute (3) HIV (human immunodeficiency virus infection) Code(s): B20 - Human immunodeficiency virus [HIV] disease Status: Acute (4) Sepsis Code(s): A41.9 - Sepsis, unspecified organism Status: Acute - Assessment and Plan Plan: 48yM with history of HIV, recently admitted for presumed fungal meningitis, reported medication non-compliance and substance abuse, presenting with seizure , fever/ sepsis, and encephalopathy NEURO: -Seizure precautions -CTH unchanged from previous -Neuro consult, EEG (patient had been seen by Dr. Quiros previously) -LP-- will consult IR as bedside attempt was unsuccessful on last admission. His sister gave verbal consent to me over the phone for this procedure. -Continue home dose of topamax -Monitor for signs of withdrawal -Frequent neuro checks -Antifungals as below CARDIO: -Tachycardic, borderline BP, received 4+L NS from EMS and in ED. Will start levo if MAPs are persistently <65 mmHg -Lactic acid trending down (4.1--> 2.9) PULM: -Currently on bipap with significant tachypnea, maintaining O2 sats, ABG 7.44/26 /90/17/-6.5 -Very likely will need intubation F/E/N: -LR @ 125 cc/hr -Monitor Is and Os -Electrolyte replacement protocol -NPO for now RENAL: -MIGUEL ANGEL, creat 1.62 up from baseline of 0.8 -Maintain Dale catheter to track accurate Is and Os ID: -Case discussed with Dr. Toribio and previous culture reports reviewed -Patient had negative blood cultures at 5 days drawn on 09/25. He had a positive toxoplasma IgG but negative IgM. He improved on his last admission while receiving Diflucan and had presumed fungal meningitis. He was discharged home on PO Diflucan but was non-compliant at home. -The patient was given a dose of acyclovir, ceftazidime, and vancomycin in the ED. Dr. Toribio and I agree on holding off on continuing broad-spectrum antibiotics for now, continue IV diflucan, and continue home prophylactic azithromycin and bactrim. PROPHY: -SCDs, SQH -PPI Overall: This patient is critically ill and at very high risk for deterioration , including respiratory failure requiring intubation, septic shock, and continued seizures. He requires ICU level of care. Counseling/ Coordination of Care: This patient is critically ill with impairment of one or more vital organ systems with a high probability of imminent or life-threatening deterioration. High-complexity medical decision making was required to support vital organ function and/ or prevent deterioration in the patient's condition. Total critical care time spent is 68 minutes giving full attention to this patient. This includes examining the patient, gathering history from someone other than the patient (i.e. chart review), discussing the patient's care with other providers, managing the patient's blood pressure and bipap settings, ordering and interpreting radiologic studies, ordering and interpreting laboratory values, re-evaluation at frequent intervals, and documentation. Amount of time is separate from teaching, counseling the patient and/or family, and exclusive of procedures. Code Status: Full code I had a long discussion with the patient's sister, who says that despite refusing LP/ medications/ non-compliance with treatment at home, she believes that the patient would want to be a full code and has not made statements otherwise in the past. She also provided verbal consent for lumbar puncture. (4) Sepsis Qualifiers: Sepsis type: sepsis due to unspecified organism Qualified Code(s): A41.9 - Sepsis, unspecified organism
--- NOTE | 2018-10-07 10:51 | CT ---
EXAM DATE: 10/07/2018 10:46 AM EST AGE/SEX: 48 years / Male INDICATIONS: Witnessed seizure, altered mental status. CLINICAL DATA: This is the patient's initial encounter. Patient reports that signs and symptoms have been present for 1 day and indicates a pain score of 2/10. MEDICAL/SURGICAL HISTORY: HIV. Hepatitis C. Neuropathy. None. RADIATION DOSE: 36.55 CTDI (mGy) COMPARISON: [facility] – [place], CT HEAD W/O CONTRAST, 09/25/2018. . TECHNIQUE: CT of the head without contrast. Using automated exposure control and adjustment of the mA and/or kV according to patient size, radiation dose was kept as low as reasonably achievable to ob tain optimal diagnostic quality images. DICOM format image data is available electronically for revi ew and comparison. FINDINGS: Cerebrum: The ventricles are normal for age. No evidence of midline shift, mass lesion, hemorrhage or acute infarction. No extraaxial fluid collections are seen. Posterior Fossa: The cerebellum and brainstem are intact. The 4th ventricle is midline. The cerebe llopontine angle is unremarkable. Extracranial: The visualized portion of the orbits is intact. Skull: The calvaria is intact. No evidence of skull fracture. CONCLUSION: 1. Negative CT Head non contrast. 2. Stable compared to recent study on 09/25/2018 . Electronically signed by: Harjeet Cazares MD 10/07/2018 10:50 AM EST
[2018-10-07] MEDS ORDERED: Sodium Chlor 0.9% Inj 500 ML IV.SIG ONE (11:19)
[2018-10-07] MEDS: Heparin - SQ 10,000 UNITS/ML Vial SQ SCH ×2 (11:19→20:22)
[2018-10-07 12:44] LABS: ABG Base Excess -6.5 mmol/L (-2-2); ABG PCO2 26 mmHg (38-42); ABG PO2 90 mmHg (61-120)
--- NOTE | 2018-10-07 13:01 | P.CONPAL ---
Consult Service: Palliative Care Requesting Physician: Wendy Perez Reason for Consult: a. To assist with evaluation and management of symptoms including: pain, confusion, dyspnea b. To assist medical decision maker(s) with: better understanding of current medical conditions; weighing benefits/burdens of medical treatment options; making medical treatment decisions. Primary Care Provider: UNKNOWN History of Present Illness History of Present Illness: Mr. Morgan is a 48yo male who presented to [facility] via EMS with complaints of seizures and fever. His sister, which whom he lives with reports that she was awoken by her daughter stating that the patient was seizing uncontrollably. She also states that approximately 2 days ago he took his entire bottle of Percocet though she was unable to tell how many pills were in the bottle. She states since then his mental status has been declining, he has been unable to finish sentences and has been noted to be urinating on himself. His past medical history is significant for AIDS, COPD, Hepatitis C, Bipolar disorder, PTSD with remote suicide attempts, and neuropathy. Of note the patient was just discharged from [facility] on 10/05/18. The patient has a history of admission related to AIDS/HIV and related sequelae. His last CD4 count was noted to be 29 on 04/2018. The patient also has a history of non compliance with his antiretroviral therapy as well as other medications. Upon arrival to the emergency room by the patient was confused, tachycardic, and with a core temperature of 101.0. He had waxing and waning mentation and required increasing oxygen support. He was placed on BiPAP 12/5 40% FiO2. Due to his rapid decline the patient was admitted to the MICU for further evaluation and treatment. Neurology and infectious disease consults are pending. Referral was also placed to interventional radiology for LP puncture as there is concern for meningitis and the patient has previously declined further workup. Initial emergency room evaluation revealed: * Temp 101.0, pulse 154, respiratory rate 46, BP 182/80, pulse ox 98% * WBC 12.5, Hgb 12.3, HCT 36.4, platelets 71, neutrophils 76.1% * PT 12.3, INR 1.2, APTT 34.3 * NA 148, K+ 3.8, CL 117, CO2 19.7, BUN 34, creatinine 1.62, estimated GFR 46, glucose 112 * CA 8.3, MG 1.8, lactic acid 4.1 * Total bili 0.9, AST 133, ALT 36, alk phos 57, troponin 0.12, total protein 8.1 , albumin 2.8 * Urine drug screen positive for cocaine and cannabinoids * Serum alcohol less than 3, salicylates 2.1, acetaminophen less than 2.0 * EKG: Sinus tachycardia. Incomplete right bundle branch block * CXR: Scattered bilateral pulmonary infiltrates Palliative care was consulted to assist with symptom management and goals of medical care. Patient was examined in the emergency room prior to transfer. He is lethargic but arousable to voice. He is oriented to self and to place. He understands he is in the hospital but unable to name the facility. Verbalizes that he has 1 sister Beata but is unable to provide any further past medical history. Verbalizes that he has pain but when asked where he states, "just states everywhere", unable to further quantify or qualify. He is on BiPAP with FiO2 of 40% and appears to be working extremely hard to breathe with a respiratory rate in the 30s. Remains sinus tach on telemetry with rate in the 120s. He appears slightly agitated continues to pick and pull various lines and tubes. Function/Cognitive Trajectory: Prior to this admission the patient was independent of ambulation and all ADLs. Per his sister the patient has struggled with drugs and alcohol abuse all his life. He has been in and out of rehab. He recently moved in with his sister approximately 5 months ago and she is noted that he has been severely depressed. She denies that he has verbalized any suicidal ideations but states that he does not want to continue with his antiretrovirals. She feels that he understands that not taking his antiretrovirals will contribute to his overall decline and that he only states these things because he is severely depressed. She has been unable to get him into outpatient therapy or to convince him to be compliant with his medication regimens. He mostly lies around the house. Review of Systems Constitutional: Reports fatigue, Reports weakness, Reports other (generalized pain) Respiratory: Reports shortness of breath PMFSH - History History Provided By: Family Member, Medical Record, Fuel Pilot Engineer / EMT - Medical History Medical History: Medical History (Last Reviewed 10/07/18 @ 17:30 by Brock Roca DO) AIDS Anxiety Bipolar 1 disorder COPD (chronic obstructive pulmonary disease) Depression HIV disease Hepatitis C History of MRSA infection Neuropathy PTSD (post-traumatic stress disorder) Pneumocystosis pneumonia Suicidal ideations - Surgical History Surgical History: Surgical History (Last Reviewed 10/07/18 @ 17:30 by Brock Roca DO) No history of previous surgery - Family History Family History: Family History (Last Reviewed 10/07/18 @ 17:30 by Brock Roca DO) Other Diabetes mellitus - Social History I have reviewed the patient's Social History: Yes - Tobacco History Second Hand Smoke Exposure: Yes Tobacco Use In Past 30 Days: Yes Smoking Status: Current every day smoker (per sister, patient has struggled with ETOH abuse) Tobacco Type: Cigarettes - Alcohol History How Often Do You Have a Drink Containing Alcohol: Unable to Obtain - Substance Use History Substance History: Past History - Travel History History of Recent Travel: No Recent Travel in the [place] Within the Last 8 Weeks: No Recent Travel Out of the Country Within the Last 8 Weeks: No - Immunization History Tetanus Immunization: Unable to Assess Hx Influenza Vaccine This Season: No Medications and Allergies Active Medications: Active Medications Acetaminophen (Tylenol) 650 mg PO Q6H PRN PRN Reason: PAIN 1-10 AND/OR FEVER >101F Al Hydroxide/Mg Hydroxide (Milk Of Magnangie Liq) 30 ml PO Q12H PRN PRN Reason: Mild Constipation Albuterol (Albuterol Neb (Prn)) 2.5 mg NEB Q2HR NEB PRN PRN Reason: SHORTNESS OF BREATH/WHEEZING Albuterol (Duoneb Neb (Michelle)) 1 ampul NEB Q4HR NEB MICHELLE Last Admin: 10/07/18 11:25 Dose: 1 ampul Azithromycin (Zithromax) 1,200 mg PO WEEKLY MICHELLE Bisacodyl (Dulcolax Supp) 10 mg RECTAL DAILY PRN PRN Reason: SEVERE CONSITIPATION Famotidine (Pepcid Pf Inj) 20 mg IV.PUSH Q12HR MICHELLE Famotidine (Pepcid) 20 mg PO BID MICHELLE Heparin Sodium (Porcine) (Heparin Inj) 5,000 units SQ Q8H MICHELLE Last Admin: 10/07/18 11:19 Dose: 5,000 units Sodium Chloride (Ns Inj) 1,000 mls @ 0 mls/hr IV.SIG .Q0M MICHELLE Last Infusion: 10/07/18 09:48 Dose: Infused Sodium Chloride (Ns Inj) 1,000 mls @ 0 mls/hr IV.SIG .Q0M MICHELLE Last Infusion: 10/07/18 09:48 Dose: Infused Sodium Chloride (Ns Inj) 700 mls @ 0 mls/hr IV.SIG .Q0M MICHELLE Last Infusion: 10/07/18 09:48 Dose: Infused Lactated Ringer's (Lr 1000 Ml Inj) 1,000 mls @ 125 mls/hr IV.CONT .Q8H MICHELLE Last Infusion: 10/07/18 12:30 Dose: 125 mls/hr Magnesium Sulfate 4 gm/ Sodium (Chloride) 100 mls @ 50 mls/hr IV.SIG UNSCH PRN PRN Reason: For Magnesium 0.9 - 1.1 mg/dL Potassium Chloride (Kcl 40 Meq Premix Inj) 40 meq in 100 mls @ 25 mls/hr IV.SIG Q2H PRN PRN Reason: For Potassium 2.8 - 3.2 mEq/L Potassium Chloride (Kcl 20 Meq Premix Inj) 20 meq in 100 mls @ 50 mls/hr IV.SIG Q2H PRN PRN Reason: For Potassium 3.3 - 3.5 mEq/L Potassium Chloride (Kcl 40 Meq Premix Inj) 40 meq in 100 mls @ 25 mls/hr IV.SIG UNSCH PRN PRN Reason: For Potassium 3.3 - 3.5 mEq/L Potassium Chloride (Kcl 20 Meq Premix Inj) 20 meq in 100 mls @ 50 mls/hr IV.SIG Q2H PRN PRN Reason: For Potassium 2.8 - 3.2 mEq/L Potassium Phosphate 30 mmol/ (Sodium Chloride) 260 mls @ 42 mls/hr IV.SIG UNSCH PRN PRN Reason: SEE LABEL COMMENTS Sodium Phosphate 30 mmol/ (Sodium Chloride) 260 mls @ 42 mls/hr IV.SIG UNSCH PRN PRN Reason: For Phosphorus < 2.5 mg/dL Magnesium Sulfate 2 gm/ Sodium (Chloride) 100 mls @ 50 mls/hr IV.SIG UNSCH PRN PRN Reason: For Magnesium 1.2 - 1.6 mg/dL Fluconazole (Diflucan 400 Mg Premix Bag) 200 mls @ 100 mls/hr IV.SIG Q24H MICHELLE Last Admin: 10/07/18 11:34 Dose: 100 mls/hr Lactulose (Lactulose Liq) 30 ml PO DAILY PRN PRN Reason: SEVERE CONSITIPATION Magnesium Oxide (Mag-Ox) 800 mg PO UNSCH PRN PRN Reason: For Magnesium 1.2 - 1.6 mg/dL Ondansetron HCl (Zofran Inj) 4 mg IV.PUSH Q6H PRN PRN Reason: NAUSEA OR VOMITING Potassium Bicarb/Potassium Chloride (K-Lyte Cl Eff) 50 meq PO UNSCH PRN PRN Reason: For Potassium 3.3 - 3.5 mEq/L Potassium Phosphate (K-Phos Original) 2,000 mg PO Q4H PRN PRN Reason: Phosphorus Less Than 2.5 mg/dL Potassium Phosphate (K-Phos Original) 2,000 mg PO UNSCH PRN PRN Reason: SEE LABEL COMMENTS Senna/Docusate Sodium (Misa-Colace) 1 tab PO BID PENDING SALE TO [facility] Sennosides (Senokot) 17.2 mg PO Q12H PRN PRN Reason: Moderate Constipation Sodium Chloride (Ns Flush) 2 ml IV.FLUSH BID PENDING SALE TO [facility] Sodium Chloride (Ns Flush) 2 ml IV.FLUSH PRN PRN PRN Reason: FLUSH AFTER USING IV ACCESS Topiramate (Topamax) 50 mg PO BID PENDING SALE TO [facility] Trimethoprim/Sulfamethoxazole (Bactrim Ds) 1 tab PO MoWeFr PENDING SALE TO [facility] Last Admin: 10/07/18 11:34 Dose: Not Given Allergies Allergy/AdvReac Type Severity Reaction Status Date / Time haloperidol Allergy Severe Swelling Verified 09/25/18 17:57 Advance Directives Living Will: No Healthcare Surrogate: No Health Care Surrogate Name and Number: Beata Morgan, sister/HCP [phone] Power of Contract Implementation Analyst: No Documented care wishes: Patient does not have a documented living will or DURABLE POWER OF MICROBIOLOGY LABORATORY MANAGER. Today's verbally stated goals: The patient is currently incapacitated and unable to participate in his own healthcare decision making. Family/friends goals: Was able to have a partial discussion with the patient's sister, Beata Morgan via telephone. She states that she believes the patient does not want to . She states she would want everything done for him. His sister recounts that he has been severely depressed for the past 5 months and has been unable to receive any kind of outpatient therapy. She states he has been noncompliant with all medication regimens, including antiretrovirals. She is also very concerned about him having an lumbar puncture. She verbalized that she would want this done as soon as possible so that the results can be analyzed. We discussed his declining respiratory status, we also discussed should he need cardiopulmonary resuscitation it most likely would result in a very poor outcome for him. Given this information she request the patient remain a FULL CODE. We also discussed with the patient required intubation he most likely would face a prolonged weaning, probably requiring tracheostomy placement. We were unable to finish discussing the most foreseeable related sequelae of aggressive treatment as the patient's sister had to take another phone call. She was able to verbalize that she would like to continue with any type of aggressive treatment available. I did provide a call back number for palliative care should she have further questions. Ethical and Legal Issues: The patient is currently unable to participate in his own healthcare decision making. In the absence of any written advanced directives, per [place] statutes the patient's sister Beata Morgan [phone] would serve as the patient's healthcare proxy. Physical Exam Vital Signs: Vital Signs - 24 hr 10/07/18 07:49 10/07/18 07:58 10/07/18 09:00 Temperature 101.0 F H 101.0 F H Pulse Rate 154 H 150 H 138 H Respiratory Rate 46 H 51 H 49 H Blood Pressure 182/80 H 182/80 H 138/63 Pulse Oximetry 98 98 96 10/07/18 09:30 10/07/18 10:15 10/07/18 10:55 Temperature 103.1 F H Pulse Rate 142 H 120 H Respiratory Rate 54 H 52 H Blood Pressure 140/62 120/60 Pulse Oximetry 96 95 95 10/07/18 11:00 10/07/18 11:25 Temperature Pulse Rate 135 H 125 H Respiratory Rate 48 H 52 H Blood Pressure 95/55 L Pulse Oximetry 95 I&O: Intake & Output 10/05/18 10/06/18 10/07/18 10/08/18 06:59 06:59 06:59 06:59 Intake Total 3934 / 3934 Output Total 450 / 450 Balance 3484 / 3484 Weight 81.647 kg Physical Exam: CONSTITUTIONAL/GENERAL: Confused, appears work hard to breathe TUBES/LINES/DRAINS: PIV, Dale, soft restraints, BiPAP SKIN: No jaundice, rashes, or lesions. Ecchymoses on upper extremities. Scabbing wound noted to left teran. Skin temperature warm. Not diaphoretic. HEAD: Atraumatic. Normocephalic. EYES: Pupils equal and round and reactive. Extraocular motions intact. No scleral icterus. No injection or drainage. Fundi not examined. ENT: Hearing grossly normal. Nose without bleeding or purulent drainage. Unable to clearly visualize oral mucosa due to BiPAP placement NECK: Trachea midline. Supple, nontender. No palpable thyroid enlargement or nodularity. CARDIOVASCULAR: Tachycardic without murmurs, gallops, or rubs. No JVD. Peripheral pulses symmetric. RESPIRATORY/CHEST: Symmetric, labored respirations. Coarse rhonchi heard throughout with expiratory wheezing right upper lobe GASTROINTESTINAL: Abdomen soft, non-tender, nondistended. No hepato-splenomegaly , or palpable masses. No guarding. Bowel sounds present. Periumbilical hernia noted GENITOURINARY: Without palpable bladder distension. Dale catheter in place. MUSCULOSKELETAL: Extremities without clubbing, cyanosis, or edema. No joint tenderness or effusion noted. No calf tenderness. No mottling or clubbing. LYMPHATICS: No palpable cervical or supraclavicular adenopathy. NEUROLOGICAL: Lethargic but easily arousable. Can follow some simple commands, when asked to wiggle his toes he wiggles his fingers. Confused, oriented to self and place only. Moves all extremities. PSYCHIATRIC: No obvious anxiety/depression. no apparent hallucinations or other psychotic thought process. Diagnostic Tests Laboratory: Laboratory Results - last 72 hr 10/07/18 10/07/18 10/07/18 08:00 08:05 08:05 WBC 12.5 H RBC 3.83 L Hgb 12.3 L Hct 36.4 L MCV 95.0 MCH 32.1 MCHC 33.8 RDW 15.3 Plt Count 71 L MPV 10.0 Prelim Diff (Auto) Slide review pending Neut % (Auto) 76.1 H Lymph % (Auto) 9.0 [place] % (Auto) 14.5 H Eos % (Auto) 0.0 Baso % (Auto) 0.4 Neut # (Auto) 9.5 H Lymph # (Auto) 1.1 [place] # (Auto) 1.8 H Eos # (Auto) 0.0 Baso # (Auto) 0.1 WBC Differential Manual diff final Seg Neuts % (Manual) 43 Band Neuts % (Manual) 38 H Lymphocytes % (Manual) 5 L Monocytes % (Manual) 14 H Abs Neuts (Manual) 10.1 H Differential Comment . Toxic Granulation 2+ H Platelet Estimate Low L Platelet Morphology Normal RBC Morphology Normal PT 12.3 H INR 1.2 APTT 34.3 H Puncture Site Patient Temperature O2 Saturation ABG pH ABG pCO2 ABG pO2 ABG HCO3 ABG O2 Content ABG Base Excess ABG Methemoglobin Hemoglobin Carboxyhemoglobin O2 Delivery Device Vent Setting Inspired O2 Critical Value Sodium Potassium Chloride Carbon Dioxide Anion Gap BUN Creatinine Estimated GFR Random Glucose Lactic Acid 4.1 H* Calcium Magnesium Total Bilirubin AST ALT Alkaline Phosphatase Troponin I Total Protein Albumin Urine Color Urine Clarity Urine pH Ur Specific [place] Urine Protein Urine Glucose (UA) Urine Ketones Urine Occult Blood Urine Nitrate Urine Bilirubin Urine Urobilinogen Ur Leukocyte Esterase Urine RBC Amorphous Sediment Granular Casts Urine Mucus Micro UA Comment Ur Microscopic Review Urine Culture Comments Salicylates Urine Opiates Screen Acetaminophen Ur Barbiturates Screen Ur Amphetamines Screen U Benzodiazepines Scrn Urine Cocaine Screen U Cannabinoids Screen Serum Alcohol 10/07/18 10/07/18 10/07/18 08:05 08:05 08:05 WBC RBC Hgb Hct MCV MCH MCHC RDW Plt Count MPV Prelim Diff (Auto) Neut % (Auto) Lymph % (Auto) [place] % (Auto) Eos % (Auto) Baso % (Auto) Neut # (Auto) Lymph # (Auto) [place] # (Auto) Eos # (Auto) Baso # (Auto) WBC Differential Seg Neuts % (Manual) Band Neuts % (Manual) Lymphocytes % (Manual) Monocytes % (Manual) Abs Neuts (Manual) Differential Comment Toxic Granulation Platelet Estimate Platelet Morphology RBC Morphology PT INR APTT Puncture Site Patient Temperature O2 Saturation ABG pH ABG pCO2 ABG pO2 ABG HCO3 ABG O2 Content ABG Base Excess ABG Methemoglobin Hemoglobin Carboxyhemoglobin O2 Delivery Device Vent Setting Inspired O2 Critical Value Sodium 148 H Potassium 3.8 Chloride 117 H Carbon Dioxide 19.7 L Anion Gap 11 BUN 34 H Creatinine 1.62 H Estimated GFR 46 L Random Glucose 112 H Lactic Acid Calcium 8.3 L Magnesium 1.8 Total Bilirubin 0.9 AST 133 H ALT 36 Alkaline Phosphatase 57 Troponin I 0.12 H Total Protein 8.1 Albumin 2.8 L Urine Color Urine Clarity Urine pH Ur Specific [place] Urine Protein Urine Glucose (UA) Urine Ketones Urine Occult Blood Urine Nitrate Urine Bilirubin Urine Urobilinogen Ur Leukocyte Esterase Urine RBC Amorphous Sediment Granular Casts Urine Mucus Micro UA Comment Ur Microscopic Review Urine Culture Comments Salicylates 2.1 L Urine Opiates Screen Acetaminophen Less than 2.0 L Ur Barbiturates Screen Ur Amphetamines Screen U Benzodiazepines Scrn Urine Cocaine Screen U Cannabinoids Screen Serum Alcohol Less than 3 10/07/18 10/07/18 10/07/18 08:15 08:15 11:15 WBC RBC Hgb Hct MCV MCH MCHC RDW Plt Count MPV Prelim Diff (Auto) Neut % (Auto) Lymph % (Auto) [place] % (Auto) Eos % (Auto) Baso % (Auto) Neut # (Auto) Lymph # (Auto) [place] # (Auto) Eos # (Auto) Baso # (Auto) WBC Differential Seg Neuts % (Manual) Band Neuts % (Manual) Lymphocytes % (Manual) Monocytes % (Manual) Abs Neuts (Manual) Differential Comment Toxic Granulation Platelet Estimate Platelet Morphology RBC Morphology PT INR APTT Puncture Site Patient Temperature O2 Saturation ABG pH ABG pCO2 ABG pO2 ABG HCO3 ABG O2 Content ABG Base Excess ABG Methemoglobin Hemoglobin Carboxyhemoglobin O2 Delivery Device Vent Setting Inspired O2 Critical Value Sodium Potassium Chloride Carbon Dioxide Anion Gap BUN Creatinine Estimated GFR Random Glucose Lactic Acid 2.9 H Calcium Magnesium Total Bilirubin AST ALT Alkaline Phosphatase Troponin I Total Protein Albumin Urine Color Valerie Urine Clarity Cloudy H Urine pH 5.0 Ur Specific [place] 1.026 Urine Protein 500 or greater Urine Glucose (UA) Negative Urine Ketones Negative Urine Occult Blood Large H Urine Nitrate Negative Urine Bilirubin Negative Urine Urobilinogen 2.0 H Ur Leukocyte Esterase Negative Urine RBC 44 H Amorphous Sediment Moderate H Granular Casts 10 Urine Mucus Few H Micro UA Comment Cath-culture not ind Ur Microscopic Review Not Reportable Urine Culture Comments Cath-cult not ind Salicylates Urine Opiates Screen Neg Acetaminophen Ur Barbiturates Screen Neg Ur Amphetamines Screen Neg U Benzodiazepines Scrn Neg Urine Cocaine Screen Pos H U Cannabinoids Screen Pos H Serum Alcohol 10/07/18 12:34 WBC RBC Hgb Hct MCV MCH MCHC RDW Plt Count MPV Prelim Diff (Auto) Neut % (Auto) Lymph % (Auto) [place] % (Auto) Eos % (Auto) Baso % (Auto) Neut # (Auto) Lymph # (Auto) [place] # (Auto) Eos # (Auto) Baso # (Auto) WBC Differential Seg Neuts % (Manual) Band Neuts % (Manual) Lymphocytes % (Manual) Monocytes % (Manual) Abs Neuts (Manual) Differential Comment Toxic Granulation Platelet Estimate Platelet Morphology RBC Morphology PT INR APTT Puncture Site Right brachial Patient Temperature 98.6 O2 Saturation 96 ABG pH 7.44 H ABG pCO2 26 L ABG pO2 90 ABG HCO3 17 L ABG O2 Content 14.1 ABG Base Excess -6.5 L ABG Methemoglobin 0.7 Hemoglobin 10.4 L Carboxyhemoglobin 1.1 O2 Delivery Device Bipap Vent Setting [id number] Inspired O2 40 Critical Value No Sodium Potassium Chloride Carbon Dioxide Anion Gap BUN Creatinine Estimated GFR Random Glucose Lactic Acid Calcium Magnesium Total Bilirubin AST ALT Alkaline Phosphatase Troponin I Total Protein Albumin Urine Color Urine Clarity Urine pH Ur Specific [place] Urine Protein Urine Glucose (UA) Urine Ketones Urine Occult Blood Urine Nitrate Urine Bilirubin Urine Urobilinogen Ur Leukocyte Esterase Urine RBC Amorphous Sediment Granular Casts Urine Mucus Micro UA Comment Ur Microscopic Review Urine Culture Comments Salicylates Urine Opiates Screen Acetaminophen Ur Barbiturates Screen Ur Amphetamines Screen U Benzodiazepines Scrn Urine Cocaine Screen U Cannabinoids Screen Serum Alcohol Result Diagrams: 10/08/18 05:00 10/08/18 05:00 Microbiology: Microbiology 10/07/18 08:15 Influenza Types A,B Antigen - Final Nasal Wash Negative for FLU A and B antigen Infection due to influenza A or B cannot be ruled out since the antigen present in the sample may be below the detection limit of the test. Imaging: Impressions Chest X-Ray 10/07/18 07:49 CONCLUSION: Scattered bilateral pulmonary infiltrates. Head CT 10/07/18 07:55 CONCLUSION: 1. Negative CT Head non contrast. 2. Stable compared to recent study on 09/25/2018 . Patient/Family Conference Present at Family Conference: Patient sisterBeata Family Conference Location: Telephone Issues Discussed: * Palliative care role, purpose, approach * Additional medical, psychosocial, and spiritual history * Patients general health, functional status, and cognitive changes in the months leading up to the current hospitalization * Patient/family understanding of the current medical problems * Patient/family understanding of prognosis * Patients goals of care as best understood from conversations and/or values * Current medical treatment options and benefits/burdens of those options: to a limited extent as his sister had to end the call * Questions answered to the best of my ability * Palliative care contact information provided Assessment and Plan - Disease Oriented Problem List (1) Acute encephalopathy (2) Seizure (3) HIV (human immunodeficiency virus infection) - Symptom Scale (1) Dyspnea 0-10 Scale: Unable to quantify (2) Confusion 0-10 Scale: Unable to quantify (3) Pain 0-10 Scale: Unable to quantify Pertinent Non-Medical Issues: Psychosocial: The patient has never been and has no children. His sister is only relative. He is currently unable to work and is living with his sister for the past 5 months Spiritual: Unknown Legal: Patient is currently unable to participate in his own medical decision making. The absence of written advanced directives, per [place] statutes his sister, Beata Morgan [phone] would be healthcare proxy Ethical issues impacting care: No known ethical issues impacting care at this time. Important Contacts: Beata Morgan, sister/HCP [phone] Prognosis: The patient has had an abrupt decline in cognitive ability. Functionally he was able to participate in his own ADLs and independent of ambulation prior to this admission. His sister states that he usually just stayed on the house sitting or laying. He has dealt with issues with drug and alcohol abuse for many years. He has multiple admissions concerning for sequelae related to his HIV/AIDS. He also has a concerning history for noncompliance with medical therapy. Given his complex medical history and associated comorbidities, he remains at high risk for further functional and cognitive decline. He remains at increased risk for continued infection, respiratory decline, and Code Status: No Code DNR Plan: * LEGAL DECISION MAKER -patient is currently unable to participate in his own healthcare decision making. In the absence of documented advanced directives, per [place] statutes decision making would fall to his Sister Beata Morgan [phone] by proxy * GOALS - Was able to have a partial discussion with the patient's sister, Beata Morgan via telephone. She states that she believes the patient does not want to . She states she would want everything done for him, including giving him his antiretroviral medications even though he has refused them in the past. His sister recounts that he has been severely depressed for the past 5 months and has been unable to receive any kind of outpatient therapy. She states he has been noncompliant with all medication regimens, including antiretrovirals. She is also very concerned about him having an lumbar puncture. She verbalized that she would want this done as soon as possible so that the results can be analyzed. We discussed his declining respiratory status , we also discussed should he need cardiopulmonary resuscitation it most likely would result in a very poor outcome for him. Given this information she request the patient remain a FULL CODE. We also discussed with the patient required intubation he most likely would face a prolonged weaning, probably requiring tracheostomy placement. We were unable to finish discussing the most foreseeable related sequelae of aggressive treatment as the patient's sister had to take another phone call. She was able to verbalize that she would like to continue with any type of aggressive treatment available. I did provide a call back number for palliative care should she have further questions. * CODE STATUS - FULL CODE * SYMPTOMS Pain - multifactorial including bedbound status, blood draws, invasive lines, tubes, procedures, etc. patient's home medication reflects oxycodone 10/325 mg p.o. every 4 hours as needed. In light of his reported abuse of this fluid use any pain medication judiciously. The patient most likely would benefit from some form of opioid pain control, could try Tramadol to start and titrate from there. Given pt's increased renal function, would shy away from IV morphine use. Confusion - most likely multifactorial including worsening respiratory status, and presumed infection. Defer to critical care to get over the acute phase. Once patient is more stable I would suggest roseanne romo to specifically opine on the patient's capacity to participate in healthcare decision making. It is unclear at this time if the patient was actually attempting suicide. It is also unclear if he is able to fully understand the implications of him refusing care and/or continuing with his medication regimens. Dyspnea - currently on Bipap with 40% FiO2, continues to be tachypneic. Continue with nebulizer treatments and good pulmonary toilet, though I'm not sure how much the patient will be able to participate. Should the patient require intubation, his sister would want to proceed with this. Defer to critical care. Palliative care will continue to follow during hospital course as condition evolves, to assist patient/decision maker with understanding of medical conditions, weighing benefits/burdens of treatment options, for clarification of goals of treatment. Additionally will assist with any symptoms of palliative concern. Case discussed with Dr. Perez and RN (Alaina) at bedside. Appreciation Thank you for the opportunity to participate in the care of Freddy Morgan. Attestation Attestation: To help prompt me to consider important information that might be impacting today's encounter and assessment, information from prior notes written by myself or my colleagues may have been "brought forward" into today's note. My signature on this note, however, is an attestation that I personally performed the exam, history, and/or decision-making noted today, and, unless otherwise indicated, the interactions with patient, family, and staff as well as the review of records all occurred today. I also attest that the listed assessment and stated plan reflect my best clinical judgment today based on the combination of historical information, prior notes, and today's exam/ interactions. When time spent is documented, it refers only to time spent today by the signer, or if indicated, combined time spent today by collaborating physician/nurse practitioner.
[2018-10-07 14:03] LABS: Hematocrit 30.4 % (39.0-51.0); Hemoglobin 9.9 gm/dL (13.0-17.0); Mean Corpuscular HGB Conc 32.6 % (32.0-36.0); Mean Corpuscular Hemoglobin 31.8 pg (27.0-34.0); Mean Corpuscular Volume 97.5 fL (80.0-100.0); Mean Platelet Volume 10.3 fL (7.0-11.0); Platelet Count 56 th/mm3 (150-450); Red Blood Count 3.12 mil/mm3 (4.50-5.90); Red Cell Distribution Width 15.5 % (11.6-17.2); White Blood Count 11.1 th/mm3 (4.0-11.0)
[2018-10-07 14:28] LABS: Albumin 2.1 g/dL (3.4-5.0); Calcium 7.1 mg/dL (8.5-10.1); Magnesium 1.5 mg/dL (1.5-2.5); Potassium 3.4 meq/L (3.5-5.1)
[2018-10-07 14:30] LABS: Total Protein 6.4 g/dL (6.4-8.2)
--- NOTE | 2018-10-07 16:26 | MB ---
cc: Evita Short MD DATE: 10/07/2018 REASON FOR CONSULTATION: Possible seizure, possible meningitis. This is a 48-year-old male with a history of HIV CD4 count less than 20. Comes in presenting with a seizure and fever, per ED. The patient is on CPAP, cannot tell me why he is here. Apparently, was admitted from 09/26/2018-10/05/2018 for fever, headache. Initial attempt at LP in the ED was unsuccessful and declined any further attempts. Blood cultures were negative at 5 days and positive toxoplasma IgG. He was treated with IV fluconazole, discharged home on p.o. fluconazole and prophylactic azithromycin and Bactrim. Apparently, he is a chronic noncompliant patient with HIV medications. Apparently, the day of admission he was at home and had a 2 minute seizure witnessed by his sister. Brought in with a temperature of 101, heart rate 150, given a dose of vancomycin, ceftazidime, acyclovir with a fluid bolus. CT of the head was done, no change. The patient remained somewhat confused. He is on CPAP and wrist restraints follow some simple commands. Otherwise, unable to get him to talk. PAST MEDICAL HISTORY: As stated. FAMILY/SOCIAL HISTORY: Unknown. PHYSICAL EXAMINATION: VITAL SIGNS: Temperature is 103.1 earlier, heart rate 125, respiratory rate 16, now it was 52, blood pressure 96/55. NEUROLOGIC: He is awake. He is somewhat alert, follows simple commands. Pupils are reactive. I cannot see his facial asymmetry. Cannot assess his speech. 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 He lifts both legs up. I do not see any leg lag. Reflexes are 1-2+. Toes withdraws. Cerebellar cannot be assessed nor gait. LABORATORY DATA: Reviewed. His white count is 11.1, hemoglobin 9.9, platelets 56,000. Coag panel: PT 12.3, PTT 34.3, INR 1.2. Chemistry: Sodium 151, potassium 3.4, CO2 19, BUN 29, creatinine 1.33, GFR 57, glucose 108, lactic acid 2.3, calcium correct at 7.5, AST 117, ALT 30, albumin 2.1, urine cloudy, large blood, moderate sediment. Culture is not indicated. Tox screen positive for cannabinoids and cocaine. IMAGING STUDIES: He had a CT of the head, negative. Stable from 09/25/2018. Chest x-ray shows bilateral pulmonary infiltrates scattered. IMPRESSION: Possible seizure. Recommend getting an EEG, meningitis. Defer to infectious disease. If he will allow an LP, it will give us a better idea, but at this point he has fever, sepsis, encephalopathic and possible seizures. Maintain seizure precautions. If needed load him if he has another witnessed event. I will go ahead and load him with Cerebyx or lacosamide. Continue antibiotics per ID and further recommendations will be made as needed. We will go ahead and get an EEG done today. MD MAXIMO Ruiz/eddie/val , 03:50 PM , 03:59 PM
[2018-10-07 16:39] LABS: Lymphocytes 5 % (9-44); Metamyelocytes 15 % (0-1); Monocytes 7 % (0-8); Myelocytes 1 % (0-0)
[2018-10-07 16:41] LABS: Platelet Morphology Normal (Normal); Toxic Granulation 1+
--- NOTE | 2018-10-07 17:09 | ECG ---
Date Performed: 10/07/2018 Time Performed: 08:01:46 PTAGE: 48 years EKG: SINUS TACHYCARDIA WITH SHORT DC INTERVAL INCOMPLETE RIGHT BUNDLE BRANCH BLOCK RIGHT VENTRIC ULAR HYPERTROPHY NONSPECIFIC ST & T-WAVE ABNORMALITY ABNORMAL ECG PREVIOUS TRACING : 08/20/2018 21.27 Compared to previous tracing, rate faster DOCTOR: Timi Jose Interpretating Date/Time 10/07/2018 17:08:44
--- NOTE | 2018-10-07 19:43 | MG ---
cc: Harshal Varghese MD EE Status post 1 mg of Ativan. On BiPAP. Admitted for seizure. A 48-year-old man, anxiety, bipolar, heparin, albuterol. FINDINGS: Diffuse 6 Hz rhythms are noted, including overall synchronous and symmetric. There are no hemisphere asymmetries. At times, some bilateral 13 Hz rhythms are noted, although a little bit more prominent on the right frontal head region than the left. On the transverse, they look to be more bilateral. No epileptiform or seizure activity is seen. Photic stimulation is performed without significant posterior driving. IMPRESSION: Some theta slowing seen consistent with a mild diffuse encephalopathy, but no focal abnormality was noted. No seizure activity was seen. Harshal Varghese MD DJM/ll , 06:42 PM , 06:46 PM
[2018-10-07] MEDS: Leucovorin 5 MG Tablet PO SCH (20:23)
--- NOTE | 2018-10-07 21:28 | MB ---
cc: Pop Toribio MD, Holly DO DATE: 10/07/2018 REQUESTING PHYSICIAN: Wendy Perez DO REASON FOR CONSULTATION: Sepsis, HIV, concern for meningitis. HISTORY OF PRESENT ILLNESS: This is a 48-year-old white male who has AIDS. The patient was recently admitted to the hospital and treated for headaches. He received empiric antibiotic treatment. He refused a lumbar puncture and therefore, it was difficult to determine the cause of his headaches. MRI did not show any significant lesions. The patient presented to the emergency department with a seizure. His temperature was 101 and then it triny to 103. He was evaluated for altered mental status after a report of a seizure. The patient adamantly refused HIV testing. His IgM titer for toxoplasma was negative, but the IgG has turned up positive. However 1 tiny lesion on an MRI which had the appearance of a blood vessel and was not be determined to be a ring-enhancing lesion. Blood cryptococcal titer was negative. He was given Diflucan empirically and he stated that his headache was improving prior to discharge. Currently, he is on BiPAP and I am unable to get him to wake up enough to get any information from him at this time. Blood cultures were taken and the results are pending. A non contrast CT scan of the head is negative. Chest x-ray shows scattered bilateral pulmonary infiltrates in the lungs. The patient was discharged on Bactrim and azithromycin. He also reports taking Bactrim prophylaxis. The patient's toxicology screen is positive for cocaine and cannabinoids. PAST MEDICAL HISTORY: Depression, COPD, bipolar disorder, anxiety disorder, hepatitis C, neuropathy, HIV, posttraumatic stress disorder, history of MRSA. ALLERGIES: HALOPERIDOL. MEDICATIONS: 1. Fluconazole. 2. Prophylactic Bactrim. 3. Prophylactic azithromycin. 4. DuoNeb. SOCIAL HISTORY: Positive tobacco. Positive toxicology screen for cocaine, indicating cocaine use. FAMILY HISTORY: Noncontributory. REVIEW OF SYSTEMS: Unable to obtain. The patient is very obtunded currently. PHYSICAL EXAMINATION: GENERAL: This is a well-developed male who is currently very obtunded. He is on BiPAP. VITAL SIGNS: Temperature 103.1 earlier, BP 120/64, respirations 30, heart rate 125. HEENT: Head is atraumatic. Extraocular movements unable to fully assess currently. No icterus. Oropharynx unable to assess currently. NECK: Supple. No swelling or adenopathy. LUNGS: Clear breath sounds. HEART: Regular S1 and S2 without murmurs. ABDOMEN: Decreased bowel sounds. Soft. No tenderness appreciated. RECTAL: Not performed. EXTREMITIES: No clubbing, cyanosis or edema. SKIN: The face, head and neck is flushed and hyperemic. No diffuse skin rash. NEUROLOGIC: Unable to assess. PSYCHIATRIC: Unable to assess. LABORATORY DATA: WBC 11.1, platelets 56,000, hemoglobin 9.9, bands 12%, neutrophils 60%. Creatinine 1.33, BUN 20, estimated GFR 57, sodium 151, AST 117, ALT 50. IMPRESSION: 1. Seizure in patient with acquired immunodeficiency syndrome. 2. Altered mental status 3. Acute encephalopathy. 4. Possible sepsis. RECOMMENDATIONS: 1. Continue Diflucan. 2. Continue the prophylactic medicine for PCP with Bactrim and also for MAC with azithromycin. 3. Attempt to get consent for a lumbar puncture so we can further evaluate this patient. 4. Order an MRI with gadolinium enhanced to look for ring-enhancing lesions. 5. Initiate antibiotic treatment for toxoplasma since his toxo IgG was positive. Because of the seizure, I think it is prudent to start him on that medication, although it is difficult going forward if it is felt that he may not be responding to this treatment, which will be empiric without additional useful information and the duration of treatment for REFIN[employer]PER[employer]KING toxoplasmosis is 6 weeks if there is response. 6. The patient's code status will need to be addressed since he has very poor insight into his medical care. 7. Initiate pyrimethamine 75 mg p.o. daily plus sulfadiazine 1500 mg p.o. 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 Thank you for this consultation. MD VIOLETA Zavala/fabian , 06:31 PM , 06:50 PM AIDAN
[2018-10-07] MEDS: Famotidine 20 MG Tablet PO SCH (21:30)
[2018-10-07] MEDS: Topiramate 25 MG Tablet PO SCH (21:30)
[2018-10-07] MEDS: Senna/Docusate Sodium 8.6/50 MG Tablet PO SCH (21:30)
[2018-10-07] MEDS: Famotidine PF Inj 20 MG/2 ML Vial IV.PUSH SCH (21:30)
[2018-10-07] MEDS: SULFADIAZINE 500 MG PO SCH (21:30)
[2018-10-07] MEDS ORDERED: Etomidate Inj 40 MG/20 ML Vial IV.PUSH ONE (22:49)
[2018-10-07] MEDS ORDERED: Etomidate Inj 20 MG/10 ML Ampul IV.PUSH ONE (22:54)
[2018-10-07] MEDS ORDERED: Propofol Inj 500 MG/50 ML Vial ONE (23:09)
--- NOTE | 2018-10-07 23:14 | P.PCN ---
Date of procedure: 10/07/18 Procedure: PROCEDURE NOTE PROCEDURE: Endotracheal intubation INDICATION: Acute hypoxemic respiratory failure with hypoxia and high work of breathing despite BIPAP. DETAILS OF PROCEDURE: The patient was placed in optimal position and preoxygenated with 100% FiO2 via [id number]. Oximeter oxygen saturation of 100% was obtained prior to direct laryngoscopy. The patient was administered Etomidate 20 mg IV for sedation and rocuronium 50 mg IV. Laryngoscopy was performed with a 4 Glidescope blade and a grade I Cormack-Lehane view was obtained. On single attempt a size 8.0 endotracheal tube was visualized passing through the cords. Correct placement was confirmed with colorimetric CO2 detector. Breath sounds were equal bilaterally. No sounds auscultated over the stomach. The endotracheal tube was secured with a commercial tube pandey at a depth of 23 cm at the lips. The patient was connected to the ventilator. The patient tolerated the procedure well without any apparent complication. Oxygen saturations were maintained greater than 99% at all times. Stat chest x-ray was ordered.
--- NOTE | 2018-10-07 23:42 | XR ---
EXAM DATE: 10/07/2018 11:32 PM EST AGE/SEX: 48 years / Male INDICATIONS: Status post ET tube and NG tube placement. CLINICAL DATA: This is the patient's subsequent encounter. Patient reports that signs and symptoms h ave been present for 2 weeks and indicates a pain score of Nonresponsive. MEDICAL/SURGICAL HISTORY: . Chronic obstructive pulmonary disease. HIV. Hepatitis C. umbilical hernia, AMS None. COMPARISON: C, CHEST 1V SINGLE AP, 10/07/2018. . FINDINGS: 2 AP views of the chest. Endotracheal tube is in place with the tip 4 cm above the floridalma. Nasogastri c tube is in place with the tip below the [id number] of the radiograph. Persistent bilateral pulmo nary opacity with lower lung zone predominance. No significant interval change. Mild blunting of the left costophrenic sulcus indicating possible small effusion. No evidence of pneumothorax. Cardiomedia stinal silhouette within normal limits. CONCLUSION: 1. Endotracheal tube and nasogastric tube in place. 2. No other significant interval change with persistent bilateral pulmonary opacity. Electronically signed by: Jon Caputo MD 10/07/2018 11:40 PM EST
[2018-10-08 00:40] LABS: ABG Base Excess -5.5 mmol/L (-2-2); ABG PCO2 40 mmHg (38-42); ABG PO2 348 mmHG (61-120)
[2018-10-08] MEDS: fentaNYL 10 mcg/mL Premix Drip 2,500 MCG/250 ML BAG IV.SIG PRN ×2 (01:35→16:30)
[2018-10-08] MEDS: Oral Hygiene Kit OROPHARYNG SCH ×5 (01:35→23:48)
[2018-10-08] MEDS: Propofol 1000 mg/100 ml Inj 1,000 MG/100 ML BOTTLE IV.CONT PRN ×3 (01:40→16:30)
[2018-10-08] MEDS: SULFADIAZINE 500 MG PO SCH ×4 (02:28→21:40)
[2018-10-08] MEDS: Heparin - SQ 10,000 UNITS/ML Vial SQ SCH ×3 (02:28→17:51)
[2018-10-08 06:18] LABS: Baso % (Auto) 0.2 % (0.0-2.0); Hematocrit 27.1 % (39.0-51.0); Hemoglobin 9.6 gm/dL (13.0-17.0); Lymph # (Auto) 0.5 th/mm3 (1.0-4.8); Lymph % (Auto) 6.1 % (9.0-44.0); Mean Corpuscular HGB Conc 35.3 % (32.0-36.0); Mean Corpuscular Hemoglobin 33.1 pg (27.0-34.0); Mean Platelet Volume 10.6 fL (7.0-11.0); Mono # (Auto) 0.6 th/mm3 (0.0-0.9); Mono % (Auto) 7.5 % (0.0-8.0); Neut # (Auto) 7.1 th/mm3 (1.8-7.7); Neut % (Auto) 86.2 % (16.0-70.0); Platelet Count 47 th/mm3 (150-450); Red Blood Count 2.89 mil/mm3 (4.50-5.90); Red Cell Distribution Width 15.5 % (11.6-17.2); White Blood Count 8.2 th/mm3 (4.0-11.0)
--- NOTE | 2018-10-08 07:35 | P.PNCC ---
Subjective Subjective Remarks/Hospital Course: 48yM with history of HIV and CD4+ count <20 presenting with seizure and fever. The patient was admitted from 09/26-10/05/18 for fever and headache, had an initial attempt at LP performed in the ED but was unsuccessful and subsequently declined any further attempts. He had blood cultures which were negative at 5 days and positive toxoplasma IgG, treated empirically with IV fluconazole and discharged home with PO fluconazole and prophylactic azithromycin and bactrim. The patient is chronic non-compliant with his HIV medications and was reportedly not taking his discharge meds. Today, he was at home and had a 2 minute seizure witnessed by his sister Beata. He was brought to the ED via EMS and had a temp of 101F and heart rate of 150. He was given a dose of vanco, ceftazidime, and acyclovir along with 3L NS bolus. He had a head CT which was unchanged from his previous visit. On my evaluation, the patient is encephalopathic and oriented to name only. He is unable to provide any further meaningful details to HPI. I spoke with the patient's sister Beata, who says that the patient is frequent non-compliant with his medications, reportedly took "a whole bottle of percocet" two days ago (just after discharge), and "hasn't been in his right mind since then. He can't finish a sentence and has been urinating himself". 10/08: Patient intubated overnight for continued respiratory distress/ hypoxia. Currently sedated and intubated. Objective Vital Signs / I&O: Vital Signs 10/07/18 07:49 10/07/18 07:58 10/07/18 09:00 Temperature 101.0 F H 101.0 F H Pulse Rate 154 H 150 H 138 H Respiratory Rate 46 H 51 H 49 H Blood Pressure 182/80 H 182/80 H 138/63 Pulse Oximetry 98 98 96 10/07/18 09:30 10/07/18 10:15 10/07/18 10:55 Temperature 103.1 F H Pulse Rate 142 H 120 H Respiratory Rate 54 H 52 H Blood Pressure 140/62 120/60 Pulse Oximetry 96 95 95 10/07/18 11:00 10/07/18 11:25 10/07/18 13:31 Temperature Pulse Rate 135 H 125 H Respiratory Rate 48 H 52 H 16 Blood Pressure 95/55 L Pulse Oximetry 95 10/07/18 14:00 10/07/18 14:38 10/07/18 14:39 Temperature Pulse Rate 124 H 123 H 124 H Respiratory Rate 41 H 43 H 45 H Blood Pressure 95/54 L 101/62 104/64 Pulse Oximetry 100 100 100 10/07/18 14:40 10/07/18 14:41 10/07/18 14:42 Temperature Pulse Rate 124 H 124 H 124 H Respiratory Rate 42 H 48 H 37 H Blood Pressure 106/62 104/60 107/62 Pulse Oximetry 100 100 99 10/07/18 14:43 10/07/18 15:00 10/07/18 15:30 Temperature Pulse Rate 124 H 123 H 123 H Respiratory Rate 42 H 44 H 37 H Blood Pressure 98/57 L 103/66 111/64 Pulse Oximetry 100 81 L 100 10/07/18 15:52 10/07/18 15:53 10/07/18 16:00 Temperature Pulse Rate 124 H 125 H Respiratory Rate 40 H 44 H Blood Pressure 115/66 Pulse Oximetry 100 97 10/07/18 16:30 10/07/18 17:00 10/07/18 17:30 Temperature Pulse Rate 125 H 124 H 124 H Respiratory Rate 37 H 40 H 39 H Blood Pressure 115/68 116/67 109/67 Pulse Oximetry 100 97 100 10/07/18 18:00 10/07/18 18:30 10/07/18 19:00 Temperature Pulse Rate 125 H 123 H 123 H Respiratory Rate 33 H 28 H 45 H Blood Pressure 120/64 108/63 107/81 Pulse Oximetry 100 98 93 L 10/07/18 19:29 10/07/18 19:30 10/07/18 19:46 Temperature Pulse Rate 120 H 115 H Respiratory Rate 27 H 25 H Blood Pressure 106/73 Pulse Oximetry 98 100 96 10/07/18 20:00 10/07/18 20:30 10/07/18 21:00 Temperature 98 F Pulse Rate 120 H 120 H 119 H Respiratory Rate 32 H 36 H 38 H Blood Pressure 103/65 125/68 116/66 Pulse Oximetry 98 98 93 L 10/07/18 21:31 10/07/18 22:00 10/07/18 22:30 Temperature Pulse Rate 128 H 119 H 114 H Respiratory Rate 48 H 48 H 39 H Blood Pressure 106/63 109/64 97/56 L Pulse Oximetry 99 77 L 10/07/18 23:00 10/07/18 23:03 10/07/18 23:06 Temperature Pulse Rate 105 H 107 H 110 H Respiratory Rate 36 H 38 H 14 Blood Pressure 106/57 L 107/58 L 141/88 H Pulse Oximetry 100 100 100 10/07/18 23:09 10/07/18 23:12 10/07/18 23:15 Temperature Pulse Rate 108 H 102 H 107 H Respiratory Rate 19 23 24 Blood Pressure 137/87 129/75 145/88 H Pulse Oximetry 100 100 100 10/07/18 23:30 10/07/18 23:34 10/07/18 23:45 Temperature Pulse Rate 109 H 107 H 107 H Respiratory Rate 24 24 26 H Blood Pressure 155/86 H 151/83 H Pulse Oximetry 100 100 10/08/18 00:00 10/08/18 00:15 10/08/18 00:30 Temperature 99.2 F Pulse Rate 110 H 110 H 110 H Respiratory Rate 24 25 H 26 H Blood Pressure 163/86 H 140/66 124/72 Pulse Oximetry 100 100 100 10/08/18 00:45 10/08/18 01:00 10/08/18 01:15 Temperature Pulse Rate 111 H 111 H 115 H Respiratory Rate 29 H 26 H 27 H Blood Pressure 115/64 102/55 L 109/61 Pulse Oximetry 99 97 97 10/08/18 01:30 10/08/18 01:45 10/08/18 02:00 Temperature Pulse Rate 114 H 113 H 112 H Respiratory Rate 29 H 27 H 28 H Blood Pressure 99/58 L 97/57 L 91/55 L Pulse Oximetry 96 97 97 10/08/18 02:15 10/08/18 02:30 10/08/18 02:45 Temperature Pulse Rate 109 H 109 H 107 H Respiratory Rate 31 H 30 H 28 H Blood Pressure 101/57 L 92/53 L 90/54 L Pulse Oximetry 98 98 98 10/08/18 03:00 10/08/18 03:15 10/08/18 03:30 Temperature Pulse Rate 107 H 105 H 104 H Respiratory Rate 28 H 27 H 27 H Blood Pressure 89/51 L 92/54 L 86/52 L Pulse Oximetry 98 99 99 10/08/18 03:45 10/08/18 03:58 10/08/18 04:00 Temperature 98.4 F Pulse Rate 102 H 101 H 102 H Respiratory Rate 26 H 25 H 25 H Blood Pressure 90/56 L 88/56 L Pulse Oximetry 99 99 99 10/08/18 04:15 10/08/18 04:30 10/08/18 04:45 Temperature Pulse Rate 102 H 104 H 105 H Respiratory Rate 24 26 H 27 H Blood Pressure 89/56 L 89/52 L 102/63 Pulse Oximetry 98 98 97 10/08/18 05:00 10/08/18 05:15 10/08/18 05:30 Temperature Pulse Rate 104 H 102 H 103 H Respiratory Rate 25 H 25 H 25 H Blood Pressure 99/61 L 98/59 L 99/60 L Pulse Oximetry 99 98 98 10/08/18 05:45 10/08/18 06:00 10/08/18 07:23 Temperature Pulse Rate 106 H 103 H 103 H Respiratory Rate 25 H 23 18 Blood Pressure 102/64 102/60 Pulse Oximetry 99 98 98 Intake & Output 10/07/18 10/08/18 10/08/18 18:59 06:59 18:59 Intake Total 4284 / 4284 2100 / 2100 Output Total 450 / 450 650 / 650 Balance 3834 / 3834 1450 / 1450 Weight 98.5 kg Intake: IV 4284 / 4284 2100 / 2100 LR 1000 mL Inj 1,000 ML @ 125 250 / 250 2000 / 2000 mls/hr IV.CONT .Q8H [facility] Rx#: [id number] Zovirax Inj 1,700 MG In NS Inj 284 / 284 250 ML @ 284 mls/hr IV.SIG ONCE ONE Rx#:[id number] Ampicillin Inj 2,000 MG In NS 100 / 100 Inj 100 ML @ 400 mls/hr IV.SIG ONCE ONE Rx#:[id number] Diflucan 400 mg Premix Bag 200 100 / 100 100 / 100 ML @ 100 mls/hr IV.SIG Q24H [facility] Rx#:[id number] NS Inj 700 ML @ Wide Open IV. 2700 / 2700 SIG .Q0M [facility] Rx#:[id number] NS Inj 500 ML @ Wide Open IV. 500 / 500 SIG BOLUS ONE Rx#:[id number] Vancomycin Inj 1,000 MG In NS 250 / 250 Inj 250 ML @ 250 mls/hr IV.SIG ONCE ONE Rx#:[id number] Tazicef Inj 2,000 MG In NS Inj 100 / 100 100 ML @ 200 mls/hr IV.SIG ONCE ONE Rx#:[id number] Output: Urine Amount (Catheter) 450 / 450 650 / 650 Condom 150 / 150 Indwelling Urethral Catheter 450 / 450 500 / 500 Other: # Incontinent Voids 2 Date of Last Bowel Movement 10/08/18 # Bowel Movements 1 Weight On Admission 98.5 kg Result Diagrams: 10/08/18 05:00 10/08/18 05:00 Objective Remarks: GEN: Ill-appearing, intubated and sedated HEENT: NCAT, PERRL NECK: No JVD, trachea midline CARDIO: Tachy to 100s, regular PULM: Mechanical breath sounds bilaterally ABD/GI: Soft, non-tender, mildly distended, easily reducible umbilical hernia EXT/MSK: No peripheral edema SKIN: No rashes NEURO: GCS 9T ([id number]), RASS 0 to -1 PSYCH: No current agitation Assessment and Plan - Problem List (1) Acute encephalopathy Code(s): G93.40 - Encephalopathy, unspecified Status: Acute (2) Seizure Code(s): R56.9 - Unspecified convulsions Status: Acute (3) HIV (human immunodeficiency virus infection) Code(s): B20 - Human immunodeficiency virus [HIV] disease Status: Acute (4) Sepsis Code(s): A41.9 - Sepsis, unspecified organism Status: Acute - Assessment and Plan Plan: 48yM with history of HIV, recently admitted for presumed fungal meningitis, reported medication non-compliance and substance abuse, presenting with seizure , fever/ sepsis, and encephalopathy NEURO: -Seizure precautions -Neurology following, no seizure activity seen on EEG -LP-- will consult IR as bedside attempt was unsuccessful on last admission. His sister gave verbal consent to me over the phone for this procedure. -Continue home dose of topamax -MRI brain with contrast to better evaluate lesion seen on last admission (left convexity parietal region) -Antifungals as below CARDIO: -BP stable overnight, still borderline tachy -Echo performed on 05/02/18, showed EF 55-60%, mild TR, no vegetations PULM: -Spontaneous breathing trials as tolerated -ABG wnl, CXR shows ETT in good position -Vent bundle -Nebs F/E/N: -Change LR to 1/2 NS @ 84 mL/hr, sodium trending up -Monitor Is and Os -Electrolyte replacement protocol -Start trickle TFs after IR/ MRI RENAL: -MIGUEL ANGEL, creat 1.17 (trending down) -Maintain Dale catheter to track accurate Is and Os ID: -ID following (Dr. Toribio) * CSF studies ordered -Continue IV diflucan and home prophylactic azithromycin and bactrim. -Started on pyrimethamine and sulfadiazine by ID PROPHY: -SCDs, SQH -PPI Overall: This patient is critically ill and at very high risk for deterioration. He requires continued ICU level of care. Level 2 follow up To help prompt me to consider important information that might be impacting today's encounter and assessment, information from prior notes written by myself or my colleagues may have been "brought forward" into today's note. My signature on this note, however, is an attestation that I personally performed the exam, history, and/or decision-making noted today, and, unless otherwise indicated, the interactions with patient, family, and staff as well as the review of records all occurred today. I also attest that the listed assessment and stated plan reflect my best clinical judgment today based on the combination of historical information, prior notes, and today's exam/ interactions. Code Status: Full (4) Sepsis Qualifiers: Qualified Code(s): A41.9 - Sepsis, unspecified organism
[2018-10-08 07:50] LABS: Albumin 2.2 g/dL (3.4-5.0); Calcium 7.3 mg/dL (8.5-10.1); Carbon Dioxide 21.4 meq/L (21.0-32.0); Magnesium 1.9 mg/dL (1.5-2.5); Phosphorus 2.9 mg/dL (2.5-4.9); Potassium 3.6 meq/L (3.5-5.1); Total Protein 6.4 g/dL (6.4-8.2)
[2018-10-08] MEDS: Topiramate 25 MG Tablet PO SCH ×2 (08:17→21:41)
[2018-10-08] MEDS: Leucovorin 5 MG Tablet PO SCH (08:17)
[2018-10-08] MEDS: Famotidine PF Inj 20 MG/2 ML Vial IV.PUSH SCH ×2 (08:17→21:41)
[2018-10-08] MEDS: Famotidine 20 MG Tablet PO SCH ×2 (08:18→21:41)
[2018-10-08] MEDS: Senna/Docusate Sodium 8.6/50 MG Tablet PO SCH ×2 (08:18→21:41)
[2018-10-08] MEDS: Chlorhexidine 0.12% Oral Kit 15 ML UDC OROPHARYNG SCH ×2 (08:18→21:40)
[2018-10-08 08:25] LABS: Lymphocytes 5 % (9-44); Monocytes 3 % (0-8)
[2018-10-08 08:26] LABS: Platelet Morphology Normal (Normal); Toxic Granulation 2+
[2018-10-08] MEDS ORDERED: Sodium Chlor 0.9% Inj 250 ML IV.SIG SCH (12:00)
--- NOTE | 2018-10-08 12:17 | P.PNID ---
Subjective Remarks: Patient is currently intubated and on the ventilator. Sedated. RN reported that he opens his eyes. Temperature of 100.6. Culture has no growth. This is a 48-year-old white male who has AIDS. The patient was recently admitted to the hospital and treated for headaches. He received empiric antibiotic treatment. He refused a lumbar puncture and therefore, it was difficult to determine the cause of his headaches. MRI did not show any significant lesions. The patient presented to the emergency department with a seizure. His temperature was 101 and then it triny to 103. He was evaluated for altered mental status after a report of a seizure. The patient adamantly refused HIV testing. His IgM titer for toxoplasma was negative, but the IgG has turned up positive. However, no lesions were noted except for 1 on an MRI which had the appearance of a blood vessel and could not be determined to be a ring-enhancing lesion. Blood serology was negative for cryptococcus. He was given Diflucan empirically and he stated that his headache was improving prior to discharge. The patient's toxicology screen is positive for cocaine and cannabinoids. Past Medical History: PAST MEDICAL HISTORY: Depression, COPD, bipolar disorder, anxiety disorder, hepatitis C, neuropathy, HIV, posttraumatic stress disorder, history of MRSA. Allergies/Adverse Reactions: Allergies haloperidol Allergy (Severe, Verified 09/25/18 17:57) Swelling TONGUE SWELLING - Per pt. Objective Vital Signs 10/07/18 13:31 10/07/18 14:00 10/07/18 14:38 Temperature Pulse Rate 124 H 123 H Respiratory Rate 16 41 H 43 H Blood Pressure 95/54 L 101/62 Pulse Oximetry 100 100 10/07/18 14:39 10/07/18 14:40 10/07/18 14:41 Temperature Pulse Rate 124 H 124 H 124 H Respiratory Rate 45 H 42 H 48 H Blood Pressure 104/64 106/62 104/60 Pulse Oximetry 100 100 100 10/07/18 14:42 10/07/18 14:43 10/07/18 15:00 Temperature Pulse Rate 124 H 124 H 123 H Respiratory Rate 37 H 42 H 44 H Blood Pressure 107/62 98/57 L 103/66 Pulse Oximetry 99 100 81 L 10/07/18 15:30 10/07/18 15:52 10/07/18 15:53 Temperature Pulse Rate 123 H 124 H Respiratory Rate 37 H 40 H Blood Pressure 111/64 Pulse Oximetry 100 100 10/07/18 16:00 10/07/18 16:30 10/07/18 17:00 Temperature Pulse Rate 125 H 125 H 124 H Respiratory Rate 44 H 37 H 40 H Blood Pressure 115/66 115/68 116/67 Pulse Oximetry 97 100 97 10/07/18 17:30 10/07/18 18:00 10/07/18 18:30 Temperature Pulse Rate 124 H 125 H 123 H Respiratory Rate 39 H 33 H 28 H Blood Pressure 109/67 120/64 108/63 Pulse Oximetry 100 100 98 10/07/18 19:00 10/07/18 19:29 10/07/18 19:30 Temperature Pulse Rate 123 H 120 H Respiratory Rate 45 H 27 H Blood Pressure 107/81 106/73 Pulse Oximetry 93 L 98 100 10/07/18 19:46 10/07/18 20:00 10/07/18 20:30 Temperature 98 F Pulse Rate 115 H 120 H 120 H Respiratory Rate 25 H 32 H 36 H Blood Pressure 103/65 125/68 Pulse Oximetry 96 98 98 10/07/18 21:00 10/07/18 21:31 10/07/18 22:00 Temperature Pulse Rate 119 H 128 H 119 H Respiratory Rate 38 H 48 H 48 H Blood Pressure 116/66 106/63 109/64 Pulse Oximetry 93 L 99 10/07/18 22:30 10/07/18 23:00 10/07/18 23:03 Temperature Pulse Rate 114 H 105 H 107 H Respiratory Rate 39 H 36 H 38 H Blood Pressure 97/56 L 106/57 L 107/58 L Pulse Oximetry 77 L 100 100 10/07/18 23:06 10/07/18 23:09 10/07/18 23:12 Temperature Pulse Rate 110 H 108 H 102 H Respiratory Rate 14 19 23 Blood Pressure 141/88 H 137/87 129/75 Pulse Oximetry 100 100 100 10/07/18 23:15 10/07/18 23:30 10/07/18 23:34 Temperature Pulse Rate 107 H 109 H 107 H Respiratory Rate 24 24 24 Blood Pressure 145/88 H 155/86 H Pulse Oximetry 100 100 10/07/18 23:45 10/08/18 00:00 10/08/18 00:15 Temperature 99.2 F Pulse Rate 107 H 110 H 110 H Respiratory Rate 26 H 24 25 H Blood Pressure 151/83 H 163/86 H 140/66 Pulse Oximetry 100 100 100 10/08/18 00:30 10/08/18 00:45 10/08/18 01:00 Temperature Pulse Rate 110 H 111 H 111 H Respiratory Rate 26 H 29 H 26 H Blood Pressure 124/72 115/64 102/55 L Pulse Oximetry 100 99 97 10/08/18 01:15 10/08/18 01:30 10/08/18 01:45 Temperature Pulse Rate 115 H 114 H 113 H Respiratory Rate 27 H 29 H 27 H Blood Pressure 109/61 99/58 L 97/57 L Pulse Oximetry 97 96 97 10/08/18 02:00 10/08/18 02:15 10/08/18 02:30 Temperature Pulse Rate 112 H 109 H 109 H Respiratory Rate 28 H 31 H 30 H Blood Pressure 91/55 L 101/57 L 92/53 L Pulse Oximetry 97 98 98 10/08/18 02:45 10/08/18 03:00 10/08/18 03:15 Temperature Pulse Rate 107 H 107 H 105 H Respiratory Rate 28 H 28 H 27 H Blood Pressure 90/54 L 89/51 L 92/54 L Pulse Oximetry 98 98 99 10/08/18 03:30 10/08/18 03:45 10/08/18 03:58 Temperature Pulse Rate 104 H 102 H 101 H Respiratory Rate 27 H 26 H 25 H Blood Pressure 86/52 L 90/56 L Pulse Oximetry 99 99 99 10/08/18 04:00 10/08/18 04:15 10/08/18 04:30 Temperature 98.4 F Pulse Rate 102 H 102 H 104 H Respiratory Rate 25 H 24 26 H Blood Pressure 88/56 L 89/56 L 89/52 L Pulse Oximetry 99 98 98 10/08/18 04:45 10/08/18 05:00 10/08/18 05:15 Temperature Pulse Rate 105 H 104 H 102 H Respiratory Rate 27 H 25 H 25 H Blood Pressure 102/63 99/61 L 98/59 L Pulse Oximetry 97 99 98 10/08/18 05:30 10/08/18 05:45 10/08/18 06:00 Temperature Pulse Rate 103 H 106 H 103 H Respiratory Rate 25 H 25 H 23 Blood Pressure 99/60 L 102/64 102/60 Pulse Oximetry 98 99 98 10/08/18 07:23 10/08/18 08:00 10/08/18 10:22 Temperature 100.6 F H Pulse Rate 103 H 109 H Respiratory Rate 18 17 17 Blood Pressure 108/66 Pulse Oximetry 98 100 100 10/08/18 11:50 Temperature Pulse Rate 110 H Respiratory Rate 17 Blood Pressure Pulse Oximetry Intake & Output 10/07/18 10/08/18 10/08/18 18:59 06:59 18:59 Intake Total 4284 / 4284 2100 / 2100 100 / 100 Output Total 450 / 450 650 / 650 Balance 3834 / 3834 1450 / 1450 100 / 100 Weight 98.5 kg Intake: IV 4284 / 4284 2100 / 2100 100 / 100 LR 1000 mL Inj 1,000 ML @ 125 250 / 250 2000 / 2000 mls/hr IV.CONT .Q8H [facility] Rx#: [id number] Diprivan 1000 mg/100 ml Inj 1, 100 / 100 000 mg In 100 ml @ 5 MCG/KG/MIN 2.955 mls/hr IV.CONT TITRATE PRN Rx#:[id number] Zovirax Inj 1,700 MG In NS Inj 284 / 284 250 ML @ 284 mls/hr IV.SIG ONCE ONE Rx#:[id number] Ampicillin Inj 2,000 MG In NS 100 / 100 Inj 100 ML @ 400 mls/hr IV.SIG ONCE ONE Rx#:[id number] Diflucan 400 mg Premix Bag 200 100 / 100 100 / 100 ML @ 100 mls/hr IV.SIG Q24H [facility] Rx#:[id number] NS Inj 700 ML @ Wide Open IV. 2700 / 2700 SIG .Q0M [facility] Rx#:[id number] NS Inj 500 ML @ Wide Open IV. 500 / 500 SIG BOLUS ONE Rx#:[id number] Vancomycin Inj 1,000 MG In NS 250 / 250 Inj 250 ML @ 250 mls/hr IV.SIG ONCE ONE Rx#:[id number] Tazicef Inj 2,000 MG In NS Inj 100 / 100 100 ML @ 200 mls/hr IV.SIG ONCE ONE Rx#:[id number] Output: Urine Amount (Catheter) 450 / 450 650 / 650 Condom 150 / 150 Indwelling Urethral Catheter 450 / 450 500 / 500 Other: # Incontinent Voids 2 Date of Last Bowel Movement 10/08/18 10/08/18 # Bowel Movements 1 Weight On Admission 98.5 kg 10/07/18 08:00 Blood - Peripheral Aerobic Blood Culture - Preliminary No growth in 1 day 10/07/18 08:00 Blood - Peripheral Anaerobic Blood Culture - Preliminary No growth in 1 day 10/07/18 08:05 Blood - Peripheral Aerobic Blood Culture - Preliminary No growth in 1 day 10/07/18 08:05 Blood - Peripheral Anaerobic Blood Culture - Preliminary No growth in 1 day 10/07/18 08:15 Nasal Wash Influenza Types A,B Antigen - Final Negative for FLU A and B antigen Infection due to influenza A or B cannot be ruled out since the antigen present in the sample may be below the detection limit of the test. Lab - Hematology Results 10/07/18 10/07/18 10/08/18 08:05 13:35 05:00 WBC 12.5 H 11.1 H 8.2 RBC 3.83 L 3.12 L 2.89 L Hgb 12.3 L 9.9 L D 9.6 L Hct 36.4 L 30.4 L 27.1 L MCV 95.0 97.5 94.0 D MCH 32.1 31.8 33.1 MCHC 33.8 32.6 35.3 RDW 15.3 15.5 15.5 Plt Count 71 L 56 L 47 L MPV 10.0 10.3 10.6 Prelim Diff (Auto) Slide review pending Manual diff required Slide review pending Neut % (Auto) 76.1 H 86.2 H Lymph % (Auto) 9.0 6.1 L [place] % (Auto) 14.5 H 7.5 Eos % (Auto) 0.0 0.0 Baso % (Auto) 0.4 0.2 Neut # (Auto) 9.5 H 7.1 Lymph # (Auto) 1.1 0.5 L [place] # (Auto) 1.8 H 0.6 Eos # (Auto) 0.0 0.0 Baso # (Auto) 0.1 0.0 WBC Differential Manual diff final Manual diff final Manual diff final Seg Neuts % (Manual) 43 60 72 H Band Neuts % (Manual) 38 H 12 H 20 H Lymphocytes % (Manual) 5 L 5 L 5 L Monocytes % (Manual) 14 H 7 3 Metamyelocytes % (Man) 15 H Myelocytes % (Man) 1 H Abs Neuts (Manual) 10.1 H 9.8 H 7.5 Differential Comment . . . Toxic Granulation 2+ H 1+ H 2+ H Platelet Estimate Low L Low L Low L Platelet Morphology Normal Normal Normal RBC Morphology Normal Lab - Chemistry Results 10/07/18 10/07/18 10/07/18 08:00 08:05 11:15 Sodium 148 H Potassium 3.8 Chloride 117 H Carbon Dioxide 19.7 L Anion Gap 11 BUN 34 H Creatinine 1.62 H Estimated GFR 46 L Random Glucose 112 H Lactic Acid 4.1 H* 2.9 H Calcium 8.3 L Prot Corrected Calcium Phosphorus Magnesium 1.8 Total Bilirubin 0.9 AST 133 H ALT 36 Alkaline Phosphatase 57 Ammonia Troponin I 0.12 H Total Protein 8.1 Albumin 2.8 L 10/07/18 10/07/18 10/08/18 13:35 13:35 00:05 Sodium 151 H Potassium 3.4 L Chloride 122 H Carbon Dioxide 19.0 L Anion Gap 10 BUN 29 H Creatinine 1.33 H Estimated GFR 57 L Random Glucose 108 H Lactic Acid 2.3 H Calcium 7.1 L* D Prot Corrected Calcium 7.5 L Phosphorus Magnesium 1.5 Total Bilirubin 0.8 AST 117 H ALT 30 Alkaline Phosphatase 43 L Ammonia 20 Troponin I Total Protein 6.4 D Albumin 2.1 L D 10/08/18 05:00 Sodium 150 H Potassium 3.6 Chloride 120 H Carbon Dioxide 21.4 Anion Gap 9 BUN 32 H Creatinine 1.17 Estimated GFR 66 L Random Glucose 119 H Lactic Acid Calcium 7.3 L* Prot Corrected Calcium 7.7 L Phosphorus 2.9 Magnesium 1.9 Total Bilirubin 0.5 AST 111 H ALT 29 Alkaline Phosphatase 45 Ammonia Troponin I Total Protein 6.4 Albumin 2.2 L Imaging: ITS Impressions Head CT 10/07/18 07:55 CONCLUSION: 1. Negative CT Head non contrast. 2. Stable compared to recent study on 09/25/2018 . Chest X-Ray 10/07/18 23:11 CONCLUSION: 1. Endotracheal tube and nasogastric tube in place. 2. No other significant interval change with persistent bilateral pulmonary opacity. Physical Exam: PHYSICAL EXAMINATION: GENERAL: Patient intubated. HEENT: Head is atraumatic. Extraocular movements unable to fully assess currently. No icterus. Oropharynx unable to assess currently. NECK: Supple. No swelling or adenopathy. LUNGS: Clear breath sounds. HEART: Regular S1 and S2 without murmurs. ABDOMEN: Decreased bowel sounds. Soft. No tenderness appreciated. EXTREMITIES: No clubbing, cyanosis or edema. SKIN: The face, head and neck is flushed and hyperemic. No diffuse skin rash. NEUROLOGIC: Unable to assess. PSYCHIATRIC: Unable to assess. Assessment and Plan - Plan IMPRESSION: 1. Seizure in patient with acquired immunodeficiency syndrome. 2. Altered mental status. ? etiology. 3. Acute encephalopathy. 4. Possible sepsis. RECOMMENDATIONS: 1. Continue Diflucan. 2. Continue the prophylactic medicine for PCP with Bactrim and also for MAC with azithromycin. 3. Monitor lumbar puncture results after it is performed. 4. MRI with gadolinium enhanced to look for ring-enhancing lesions. 5. Continue antibiotic treatment for toxoplasma since his toxo IgG was positive. Continue pyrimethamine 75 mg p.o. daily plus sulfadiazine 1500 mg p.o. 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 Discussed with Dr. Ana RN and sister.
[2018-10-08] MEDS: Acetaminophen 325 MG Tablet PO PRN ×2 (12:18→18:32)
[2018-10-08] MEDS: Sodium Chloride 0.45 % Inj 1,000 ML IV.CONT SCH (13:38)
--- NOTE | 2018-10-08 13:44 | P.PNPAL ---
Reason for Visit Reason for visit: a. To assist with evaluation and management of symptoms including: pain, confusion, dyspnea b. To assist medical decision maker(s) with: better understanding of current medical conditions; weighing benefits/burdens of medical treatment options; making medical treatment decisions. Subjective Subjective/Interval History: Mr. Morgan is a 48yo male who presented to [place] ER via EMS with complaints of seizures and fever. His sister, which whom he lives with reports that she was awoken by her daughter stating that the patient was seizing uncontrollably. She also states that approximately 2 days ago he took his entire bottle of Percocet though she was unable to tell how many pills were in the bottle. She states since then his mental status has been declining, he has been unable to finish sentences and has been noted to be urinating on himself. His past medical history is significant for AIDS, COPD, Hepatitis C, Bipolar disorder, PTSD with remote suicide attempts, and neuropathy. Of note the patient was just discharged from [place] on 10/05/18. The patient has a history of admission related to AIDS/HIV and related sequelae. His last CD4 count was noted to be 29 on 04/2018. The patient also has a history of non compliance with his antiretroviral therapy as well as other medications. Upon arrival to the emergency room by the patient was confused, tachycardic, and with a core temperature of 101.0. He had waxing and waning mentation and required increasing oxygen support. He was placed on BiPAP 12/5 40% FiO2. Due to his rapid decline the patient was admitted to the MICU for further evaluation and treatment. Neurology and infectious disease consults are pending. Referral was also placed to interventional radiology for LP puncture as there is concern for meningitis and the patient has previously declined further workup. Initial emergency room evaluation revealed: * Temp 101.0, pulse 154, respiratory rate 46, BP 182/80, pulse ox 98% * WBC 12.5, Hgb 12.3, HCT 36.4, platelets 71, neutrophils 76.1% * PT 12.3, INR 1.2, APTT 34.3 * NA 148, K+ 3.8, CL 117, CO2 19.7, BUN 34, creatinine 1.62, estimated GFR 46, glucose 112 * CA 8.3, MG 1.8, lactic acid 4.1 * Total bili 0.9, AST 133, ALT 36, alk phos 57, troponin 0.12, total protein 8.1 , albumin 2.8 * Urine drug screen positive for cocaine and cannabinoids * Serum alcohol less than 3, salicylates 2.1, acetaminophen less than 2.0 * EKG: Sinus tachycardia. Incomplete right bundle branch block * CXR: Scattered bilateral pulmonary infiltrates 10/08/18 Palliative care continues to follow with patient for symptom management and continuing conversation for goals of medical care. Patient respiratory status continues to decline overnight requiring endotracheal intubation. Currently he is on CPAP 10/26 35% FiO2. Raise sedated with 20 mcg of propofol and 150 mcg of fentanyl. Despite sedation patient is able to open eyes though does not necessary follow commands. Moves all 4 extremities spontaneously. Lungs with scattered rhonchi. EEG done 10/07/18 showed some theta slowing consistent with mild diffuse encephalopathy but no focal abnormalities were noted. No seizure activity noted. She remains on prophylactic antiseizure medications.Infectious disease to continue prophylactic medicine for PCP and MAC. Lumbar puncture was completed today in IR, CSF fluid culture pending. Plans are to order repeat MRI with gadolinium to look for ring-enhancing lesions. Today's clinical data revealed: * WBC 8.2, Hgb 9.6, HCT 27.1, platelets 47 * NA 150, K+ 3.6, CL 120, CO2 21.4, BUN 32, creatinine 1.17, glucose 119, albumin 2.2 * CA 7.3, PCC 7.7, AST 111, ALT 29 Advance Directives Health Care Surrogate Name and Number: Beata Morgan, sister/HCP [phone] Documented care wishes:: Patient does not have a documented living will or DURABLE POWER OF CORRECTIONAL CASEWORK SPECIALIST. Significant change in goals:: No significant changes in goals of care. Patient sister wishes to for patient to remain a full code with aggressive treatment. When asked if she wishes us to continue antiretroviral medications in light of the patient's previous denial of such she responds yes Objective Vital Signs: Vital Signs 10/07/18 14:00 10/07/18 14:38 10/07/18 14:39 Temperature Pulse Rate 124 H 123 H 124 H Respiratory Rate 41 H 43 H 45 H Blood Pressure 95/54 L 101/62 104/64 Pulse Oximetry 100 100 100 10/07/18 14:40 10/07/18 14:41 10/07/18 14:42 Temperature Pulse Rate 124 H 124 H 124 H Respiratory Rate 42 H 48 H 37 H Blood Pressure 106/62 104/60 107/62 Pulse Oximetry 100 100 99 10/07/18 14:43 10/07/18 15:00 10/07/18 15:30 Temperature Pulse Rate 124 H 123 H 123 H Respiratory Rate 42 H 44 H 37 H Blood Pressure 98/57 L 103/66 111/64 Pulse Oximetry 100 81 L 100 10/07/18 15:52 10/07/18 15:53 10/07/18 16:00 Temperature Pulse Rate 124 H 125 H Respiratory Rate 40 H 44 H Blood Pressure 115/66 Pulse Oximetry 100 97 10/07/18 16:30 10/07/18 17:00 10/07/18 17:30 Temperature Pulse Rate 125 H 124 H 124 H Respiratory Rate 37 H 40 H 39 H Blood Pressure 115/68 116/67 109/67 Pulse Oximetry 100 97 100 10/07/18 18:00 10/07/18 18:30 10/07/18 19:00 Temperature Pulse Rate 125 H 123 H 123 H Respiratory Rate 33 H 28 H 45 H Blood Pressure 120/64 108/63 107/81 Pulse Oximetry 100 98 93 L 10/07/18 19:29 10/07/18 19:30 10/07/18 19:46 Temperature Pulse Rate 120 H 115 H Respiratory Rate 27 H 25 H Blood Pressure 106/73 Pulse Oximetry 98 100 96 10/07/18 20:00 10/07/18 20:30 10/07/18 21:00 Temperature 98 F Pulse Rate 120 H 120 H 119 H Respiratory Rate 32 H 36 H 38 H Blood Pressure 103/65 125/68 116/66 Pulse Oximetry 98 98 93 L 10/07/18 21:31 10/07/18 22:00 10/07/18 22:30 Temperature Pulse Rate 128 H 119 H 114 H Respiratory Rate 48 H 48 H 39 H Blood Pressure 106/63 109/64 97/56 L Pulse Oximetry 99 77 L 10/07/18 23:00 10/07/18 23:03 10/07/18 23:06 Temperature Pulse Rate 105 H 107 H 110 H Respiratory Rate 36 H 38 H 14 Blood Pressure 106/57 L 107/58 L 141/88 H Pulse Oximetry 100 100 100 10/07/18 23:09 10/07/18 23:12 10/07/18 23:15 Temperature Pulse Rate 108 H 102 H 107 H Respiratory Rate 19 23 24 Blood Pressure 137/87 129/75 145/88 H Pulse Oximetry 100 100 100 10/07/18 23:30 10/07/18 23:34 10/07/18 23:45 Temperature Pulse Rate 109 H 107 H 107 H Respiratory Rate 24 24 26 H Blood Pressure 155/86 H 151/83 H Pulse Oximetry 100 100 10/08/18 00:00 10/08/18 00:15 10/08/18 00:30 Temperature 99.2 F Pulse Rate 110 H 110 H 110 H Respiratory Rate 24 25 H 26 H Blood Pressure 163/86 H 140/66 124/72 Pulse Oximetry 100 100 100 10/08/18 00:45 10/08/18 01:00 10/08/18 01:15 Temperature Pulse Rate 111 H 111 H 115 H Respiratory Rate 29 H 26 H 27 H Blood Pressure 115/64 102/55 L 109/61 Pulse Oximetry 99 97 97 10/08/18 01:30 10/08/18 01:45 10/08/18 02:00 Temperature Pulse Rate 114 H 113 H 112 H Respiratory Rate 29 H 27 H 28 H Blood Pressure 99/58 L 97/57 L 91/55 L Pulse Oximetry 96 97 97 10/08/18 02:15 10/08/18 02:30 10/08/18 02:45 Temperature Pulse Rate 109 H 109 H 107 H Respiratory Rate 31 H 30 H 28 H Blood Pressure 101/57 L 92/53 L 90/54 L Pulse Oximetry 98 98 98 10/08/18 03:00 10/08/18 03:15 10/08/18 03:30 Temperature Pulse Rate 107 H 105 H 104 H Respiratory Rate 28 H 27 H 27 H Blood Pressure 89/51 L 92/54 L 86/52 L Pulse Oximetry 98 99 99 10/08/18 03:45 10/08/18 03:58 10/08/18 04:00 Temperature 98.4 F Pulse Rate 102 H 101 H 102 H Respiratory Rate 26 H 25 H 25 H Blood Pressure 90/56 L 88/56 L Pulse Oximetry 99 99 99 10/08/18 04:15 10/08/18 04:30 10/08/18 04:45 Temperature Pulse Rate 102 H 104 H 105 H Respiratory Rate 24 26 H 27 H Blood Pressure 89/56 L 89/52 L 102/63 Pulse Oximetry 98 98 97 10/08/18 05:00 10/08/18 05:15 10/08/18 05:30 Temperature Pulse Rate 104 H 102 H 103 H Respiratory Rate 25 H 25 H 25 H Blood Pressure 99/61 L 98/59 L 99/60 L Pulse Oximetry 99 98 98 10/08/18 05:45 10/08/18 06:00 10/08/18 07:23 Temperature Pulse Rate 106 H 103 H 103 H Respiratory Rate 25 H 23 18 Blood Pressure 102/64 102/60 Pulse Oximetry 99 98 98 10/08/18 08:00 10/08/18 10:22 10/08/18 11:50 Temperature 100.6 F H Pulse Rate 109 H 110 H Respiratory Rate 17 17 17 Blood Pressure 108/66 Pulse Oximetry 100 100 Intake & Output 10/07/18 10/08/18 10/08/18 18:59 06:59 18:59 Intake Total 4284 / 4284 2100 / 2100 100 / 100 Output Total 450 / 450 650 / 650 Balance 3834 / 3834 1450 / 1450 100 / 100 Weight 98.5 kg Intake: IV 4284 / 4284 2100 / 2100 100 / 100 LR 1000 mL Inj 1,000 ML @ 125 250 / 250 2000 / 2000 mls/hr IV.CONT .Q8H [facility] Rx#: [id number] Diprivan 1000 mg/100 ml Inj 1, 100 / 100 000 mg In 100 ml @ 5 MCG/KG/MIN 2.955 mls/hr IV.CONT TITRATE PRN Rx#:[id number] Zovirax Inj 1,700 MG In NS Inj 284 / 284 250 ML @ 284 mls/hr IV.SIG ONCE ONE Rx#:[id number] Ampicillin Inj 2,000 MG In NS 100 / 100 Inj 100 ML @ 400 mls/hr IV.SIG ONCE ONE Rx#:[id number] Diflucan 400 mg Premix Bag 200 100 / 100 100 / 100 ML @ 100 mls/hr IV.SIG Q24H [facility] Rx#:[id number] NS Inj 700 ML @ Wide Open IV. 2700 / 2700 SIG .Q0M [facility] Rx#:[id number] NS Inj 500 ML @ Wide Open IV. 500 / 500 SIG BOLUS ONE Rx#:[id number] Vancomycin Inj 1,000 MG In NS 250 / 250 Inj 250 ML @ 250 mls/hr IV.SIG ONCE ONE Rx#:[id number] Tazicef Inj 2,000 MG In NS Inj 100 / 100 100 ML @ 200 mls/hr IV.SIG ONCE ONE Rx#:[id number] Output: Urine Amount (Catheter) 450 / 450 650 / 650 Condom 150 / 150 Indwelling Urethral Catheter 450 / 450 500 / 500 Other: # Incontinent Voids 2 Date of Last Bowel Movement 10/08/18 10/08/18 # Bowel Movements 1 Weight On Admission 98.5 kg Physical Exam: CONSTITUTIONAL/GENERAL: Intubated and sedated TUBES/LINES/DRAINS: PIV, Dale, soft restraints, ETT SKIN: No jaundice, rashes, or lesions. Ecchymoses on upper extremities. Scabbing wound noted to left teran. Skin temperature warm. Not diaphoretic. EYES: Pupils equal and round and reactive. No scleral icterus. No injection or drainage. Fundi not examined. ENT: Unable to assess hearing due to clinical condition. Nose without bleeding or purulent drainage. Oral mucosa dry CARDIOVASCULAR: Tachycardic without murmurs, gallops, or rubs. Peripheral pulses symmetric. RESPIRATORY/CHEST: Symmetric, mechanically ventilated. Scattered rhonchi throughout. Diminished in the bases GASTROINTESTINAL: Abdomen soft, non-tender, nondistended. No hepato-splenomegaly , or palpable masses. No guarding. Bowel sounds present. Periumbilical hernia noted GENITOURINARY: Without palpable bladder distension. Dale catheter in place. MUSCULOSKELETAL: Extremities without clubbing, cyanosis, or edema. No joint tenderness or effusion noted. No calf tenderness. No mottling or clubbing. NEUROLOGICAL: Sedated. Opens eyes to voice. Does not follow commands but moves all 4 extremities spontaneously. Pupils equal round reactive. PSYCHIATRIC: Unable to assess due to clinical condition Diagnostic Tests Laboratory: Laboratory Results - last 72 hr 10/07/18 10/07/18 10/07/18 08:00 08:05 08:05 WBC 12.5 H RBC 3.83 L Hgb 12.3 L Hct 36.4 L MCV 95.0 MCH 32.1 MCHC 33.8 RDW 15.3 Plt Count 71 L MPV 10.0 Prelim Diff (Auto) Slide review pending Neut % (Auto) 76.1 H Lymph % (Auto) 9.0 Nance % (Auto) 14.5 H Eos % (Auto) 0.0 Baso % (Auto) 0.4 Neut # (Auto) 9.5 H Lymph # (Auto) 1.1 Nance # (Auto) 1.8 H Eos # (Auto) 0.0 Baso # (Auto) 0.1 WBC Differential Manual diff final Seg Neuts % (Manual) 43 Band Neuts % (Manual) 38 H Lymphocytes % (Manual) 5 L Monocytes % (Manual) 14 H Metamyelocytes % (Man) Myelocytes % (Man) Abs Neuts (Manual) 10.1 H Differential Comment . Toxic Granulation 2+ H Platelet Estimate Low L Platelet Morphology Normal RBC Morphology Normal PT 12.3 H INR 1.2 APTT 34.3 H Puncture Site Patient Temperature O2 Saturation ABG pH ABG pCO2 ABG pO2 ABG HCO3 ABG O2 Content ABG Base Excess ABG Methemoglobin Dmitri Test Hemoglobin Carboxyhemoglobin O2 Delivery Device Vent Setting Inspired O2 Critical Value Sodium Potassium Chloride Carbon Dioxide Anion Gap BUN Creatinine Estimated GFR Random Glucose Lactic Acid 4.1 H* Calcium Prot Corrected Calcium Phosphorus Magnesium Total Bilirubin AST ALT Alkaline Phosphatase Ammonia Troponin I Total Protein Albumin Urine Color Urine Clarity Urine pH Ur Specific Alpine Urine Protein Urine Glucose (UA) Urine Ketones Urine Occult Blood Urine Nitrate Urine Bilirubin Urine Urobilinogen Ur Leukocyte Esterase Urine RBC Amorphous Sediment Granular Casts Urine Mucus Micro UA Comment Ur Microscopic Review Urine Culture Comments Salicylates Urine Opiates Screen Acetaminophen Ur Barbiturates Screen Ur Amphetamines Screen U Benzodiazepines Scrn Urine Cocaine Screen U Cannabinoids Screen Serum Alcohol 10/07/18 10/07/18 10/07/18 08:05 08:05 08:05 WBC RBC Hgb Hct MCV MCH MCHC RDW Plt Count MPV Prelim Diff (Auto) Neut % (Auto) Lymph % (Auto) Nance % (Auto) Eos % (Auto) Baso % (Auto) Neut # (Auto) Lymph # (Auto) Nance # (Auto) Eos # (Auto) Baso # (Auto) WBC Differential Seg Neuts % (Manual) Band Neuts % (Manual) Lymphocytes % (Manual) Monocytes % (Manual) Metamyelocytes % (Man) Myelocytes % (Man) Abs Neuts (Manual) Differential Comment Toxic Granulation Platelet Estimate Platelet Morphology RBC Morphology PT INR APTT Puncture Site Patient Temperature O2 Saturation ABG pH ABG pCO2 ABG pO2 ABG HCO3 ABG O2 Content ABG Base Excess ABG Methemoglobin Dmitri Test Hemoglobin Carboxyhemoglobin O2 Delivery Device Vent Setting Inspired O2 Critical Value Sodium 148 H Potassium 3.8 Chloride 117 H Carbon Dioxide 19.7 L Anion Gap 11 BUN 34 H Creatinine 1.62 H Estimated GFR 46 L Random Glucose 112 H Lactic Acid Calcium 8.3 L Prot Corrected Calcium Phosphorus Magnesium 1.8 Total Bilirubin 0.9 AST 133 H ALT 36 Alkaline Phosphatase 57 Ammonia Troponin I 0.12 H Total Protein 8.1 Albumin 2.8 L Urine Color Urine Clarity Urine pH Ur Specific Alpine Urine Protein Urine Glucose (UA) Urine Ketones Urine Occult Blood Urine Nitrate Urine Bilirubin Urine Urobilinogen Ur Leukocyte Esterase Urine RBC Amorphous Sediment Granular Casts Urine Mucus Micro UA Comment Ur Microscopic Review Urine Culture Comments Salicylates 2.1 L Urine Opiates Screen Acetaminophen Less than 2.0 L Ur Barbiturates Screen Ur Amphetamines Screen U Benzodiazepines Scrn Urine Cocaine Screen U Cannabinoids Screen Serum Alcohol Less than 3 10/07/18 10/07/18 10/07/18 08:15 08:15 11:15 WBC RBC Hgb Hct MCV MCH MCHC RDW Plt Count MPV Prelim Diff (Auto) Neut % (Auto) Lymph % (Auto) Nance % (Auto) Eos % (Auto) Baso % (Auto) Neut # (Auto) Lymph # (Auto) Nance # (Auto) Eos # (Auto) Baso # (Auto) WBC Differential Seg Neuts % (Manual) Band Neuts % (Manual) Lymphocytes % (Manual) Monocytes % (Manual) Metamyelocytes % (Man) Myelocytes % (Man) Abs Neuts (Manual) Differential Comment Toxic Granulation Platelet Estimate Platelet Morphology RBC Morphology PT INR APTT Puncture Site Patient Temperature O2 Saturation ABG pH ABG pCO2 ABG pO2 ABG HCO3 ABG O2 Content ABG Base Excess ABG Methemoglobin Dmitri Test Hemoglobin Carboxyhemoglobin O2 Delivery Device Vent Setting Inspired O2 Critical Value Sodium Potassium Chloride Carbon Dioxide Anion Gap BUN Creatinine Estimated GFR Random Glucose Lactic Acid 2.9 H Calcium Prot Corrected Calcium Phosphorus Magnesium Total Bilirubin AST ALT Alkaline Phosphatase Ammonia Troponin I Total Protein Albumin Urine Color Valerie Urine Clarity Cloudy H Urine pH 5.0 Ur Specific Alpine 1.026 Urine Protein 500 or greater Urine Glucose (UA) Negative Urine Ketones Negative Urine Occult Blood Large H Urine Nitrate Negative Urine Bilirubin Negative Urine Urobilinogen 2.0 H Ur Leukocyte Esterase Negative Urine RBC 44 H Amorphous Sediment Moderate H Granular Casts 10 Urine Mucus Few H Micro UA Comment Cath-culture not ind Ur Microscopic Review Not Reportable Urine Culture Comments Cath-cult not ind Salicylates Urine Opiates Screen Neg Acetaminophen Ur Barbiturates Screen Neg Ur Amphetamines Screen Neg U Benzodiazepines Scrn Neg Urine Cocaine Screen Pos H U Cannabinoids Screen Pos H Serum Alcohol 10/07/18 10/07/18 10/07/18 12:34 13:35 13:35 WBC 11.1 H RBC 3.12 L Hgb 9.9 L D Hct 30.4 L MCV 97.5 MCH 31.8 MCHC 32.6 RDW 15.5 Plt Count 56 L MPV 10.3 Prelim Diff (Auto) Manual diff required Neut % (Auto) Lymph % (Auto) Nance % (Auto) Eos % (Auto) Baso % (Auto) Neut # (Auto) Lymph # (Auto) Nance # (Auto) Eos # (Auto) Baso # (Auto) WBC Differential Manual diff final Seg Neuts % (Manual) 60 Band Neuts % (Manual) 12 H Lymphocytes % (Manual) 5 L Monocytes % (Manual) 7 Metamyelocytes % (Man) 15 H Myelocytes % (Man) 1 H Abs Neuts (Manual) 9.8 H Differential Comment . Toxic Granulation 1+ H Platelet Estimate Low L Platelet Morphology Normal RBC Morphology PT INR APTT Puncture Site Right brachial Patient Temperature 98.6 O2 Saturation 96 ABG pH 7.44 H ABG pCO2 26 L ABG pO2 90 ABG HCO3 17 L ABG O2 Content 14.1 ABG Base Excess -6.5 L ABG Methemoglobin 0.7 Dmitri Test Hemoglobin 10.4 L Carboxyhemoglobin 1.1 O2 Delivery Device Bipap Vent Setting [id number] Inspired O2 40 Critical Value No Sodium Potassium Chloride Carbon Dioxide Anion Gap BUN Creatinine Estimated GFR Random Glucose Lactic Acid 2.3 H Calcium Prot Corrected Calcium Phosphorus Magnesium Total Bilirubin AST ALT Alkaline Phosphatase Ammonia Troponin I Total Protein Albumin Urine Color Urine Clarity Urine pH Ur Specific Alpine Urine Protein Urine Glucose (UA) Urine Ketones Urine Occult Blood Urine Nitrate Urine Bilirubin Urine Urobilinogen Ur Leukocyte Esterase Urine RBC Amorphous Sediment Granular Casts Urine Mucus Micro UA Comment Ur Microscopic Review Urine Culture Comments Salicylates Urine Opiates Screen Acetaminophen Ur Barbiturates Screen Ur Amphetamines Screen U Benzodiazepines Scrn Urine Cocaine Screen U Cannabinoids Screen Serum Alcohol 10/07/18 10/08/18 10/08/18 13:35 00:05 00:25 WBC RBC Hgb Hct MCV MCH MCHC RDW Plt Count MPV Prelim Diff (Auto) Neut % (Auto) Lymph % (Auto) Nance % (Auto) Eos % (Auto) Baso % (Auto) Neut # (Auto) Lymph # (Auto) Nance # (Auto) Eos # (Auto) Baso # (Auto) WBC Differential Seg Neuts % (Manual) Band Neuts % (Manual) Lymphocytes % (Manual) Monocytes % (Manual) Metamyelocytes % (Man) Myelocytes % (Man) Abs Neuts (Manual) Differential Comment Toxic Granulation Platelet Estimate Platelet Morphology RBC Morphology PT INR APTT Puncture Site Right radial Patient Temperature 98.6 O2 Saturation 98 ABG pH 7.31 L ABG pCO2 40 ABG pO2 348 H ABG HCO3 20 L ABG O2 Content 15.5 ABG Base Excess -5.5 L ABG Methemoglobin 1.6 Dmitri Test Present Hemoglobin 10.7 L Carboxyhemoglobin 0.3 O2 Delivery Device Ventilator Vent Setting [id number] Inspired O2 100 Critical Value No Sodium 151 H Potassium 3.4 L Chloride 122 H Carbon Dioxide 19.0 L Anion Gap 10 BUN 29 H Creatinine 1.33 H Estimated GFR 57 L Random Glucose 108 H Lactic Acid Calcium 7.1 L* D Prot Corrected Calcium 7.5 L Phosphorus Magnesium 1.5 Total Bilirubin 0.8 AST 117 H ALT 30 Alkaline Phosphatase 43 L Ammonia 20 Troponin I Total Protein 6.4 D Albumin 2.1 L D Urine Color Urine Clarity Urine pH Ur Specific Alpine Urine Protein Urine Glucose (UA) Urine Ketones Urine Occult Blood Urine Nitrate Urine Bilirubin Urine Urobilinogen Ur Leukocyte Esterase Urine RBC Amorphous Sediment Granular Casts Urine Mucus Micro UA Comment Ur Microscopic Review Urine Culture Comments Salicylates Urine Opiates Screen Acetaminophen Ur Barbiturates Screen Ur Amphetamines Screen U Benzodiazepines Scrn Urine Cocaine Screen U Cannabinoids Screen Serum Alcohol 10/08/18 10/08/18 05:00 05:00 WBC 8.2 RBC 2.89 L Hgb 9.6 L Hct 27.1 L MCV 94.0 D MCH 33.1 MCHC 35.3 RDW 15.5 Plt Count 47 L MPV 10.6 Prelim Diff (Auto) Slide review pending Neut % (Auto) 86.2 H Lymph % (Auto) 6.1 L Nance % (Auto) 7.5 Eos % (Auto) 0.0 Baso % (Auto) 0.2 Neut # (Auto) 7.1 Lymph # (Auto) 0.5 L Nance # (Auto) 0.6 Eos # (Auto) 0.0 Baso # (Auto) 0.0 WBC Differential Manual diff final Seg Neuts % (Manual) 72 H Band Neuts % (Manual) 20 H Lymphocytes % (Manual) 5 L Monocytes % (Manual) 3 Metamyelocytes % (Man) Myelocytes % (Man) Abs Neuts (Manual) 7.5 Differential Comment . Toxic Granulation 2+ H Platelet Estimate Low L Platelet Morphology Normal RBC Morphology PT INR APTT Puncture Site Patient Temperature O2 Saturation ABG pH ABG pCO2 ABG pO2 ABG HCO3 ABG O2 Content ABG Base Excess ABG Methemoglobin Dmitri Test Hemoglobin Carboxyhemoglobin O2 Delivery Device Vent Setting Inspired O2 Critical Value Sodium 150 H Potassium 3.6 Chloride 120 H Carbon Dioxide 21.4 Anion Gap 9 BUN 32 H Creatinine 1.17 Estimated GFR 66 L Random Glucose 119 H Lactic Acid Calcium 7.3 L* Prot Corrected Calcium 7.7 L Phosphorus 2.9 Magnesium 1.9 Total Bilirubin 0.5 AST 111 H ALT 29 Alkaline Phosphatase 45 Ammonia Troponin I Total Protein 6.4 Albumin 2.2 L Urine Color Urine Clarity Urine pH Ur Specific Alpine Urine Protein Urine Glucose (UA) Urine Ketones Urine Occult Blood Urine Nitrate Urine Bilirubin Urine Urobilinogen Ur Leukocyte Esterase Urine RBC Amorphous Sediment Granular Casts Urine Mucus Micro UA Comment Ur Microscopic Review Urine Culture Comments Salicylates Urine Opiates Screen Acetaminophen Ur Barbiturates Screen Ur Amphetamines Screen U Benzodiazepines Scrn Urine Cocaine Screen U Cannabinoids Screen Serum Alcohol Result Diagrams: 10/08/18 05:00 10/08/18 05:00 Microbiology: Microbiology 10/07/18 08:00 Aerobic Blood Culture - Preliminary Blood - Peripheral No growth in 1 day Anaerobic Blood Culture - Preliminary No growth in 1 day 10/07/18 08:05 Aerobic Blood Culture - Preliminary Blood - Peripheral No growth in 1 day Anaerobic Blood Culture - Preliminary No growth in 1 day 10/07/18 08:15 Influenza Types A,B Antigen - Final Nasal Wash Negative for FLU A and B antigen Infection due to influenza A or B cannot be ruled out since the antigen present in the sample may be below the detection limit of the test. Imaging: Impressions Chest X-Ray 10/07/18 23:11 CONCLUSION: 1. Endotracheal tube and nasogastric tube in place. 2. No other significant interval change with persistent bilateral pulmonary opacity. Procedures: 10/07/18 * Endotracheal intubation 10/08/18 * Lumbar puncture Assessment and Plan - Disease Oriented Problem List (1) Acute encephalopathy (2) Seizure (3) HIV (human immunodeficiency virus infection) - Symptom Scale (1) Dyspnea 0-10 Scale: Unable to quantify Comment: Currently managed by mechanical ventilation (2) Confusion 0-10 Scale: Unable to quantify (3) Pain 0-10 Scale: Unable to quantify Comment: Currently managed with IV fentanyl Pertinent Non-Medical Issues: Psychosocial: The patient has never been and has no children. His sister is only relative. He is currently unable to work and is living with his sister for the past 5 months Spiritual: Unknown Legal: Patient is currently unable to participate in his own medical decision making. The absence of written advanced directives, per [place] statutes his sister, Beata Morgan [phone] would be healthcare proxy Ethical issues impacting care: No known ethical issues impacting care at this time. Important Contacts: Beata Morgan, sister/HCP [phone] Prognosis: The patient has had an abrupt decline in cognitive ability. Functionally he was able to participate in his own ADLs and independent of ambulation prior to this admission. His sister states that he usually just stayed on the house sitting or laying. He has dealt with issues with drug and alcohol abuse for many years. He has multiple admissions concerning for sequelae related to his HIV/AIDS. He also has a concerning history for noncompliance with medical therapy. Given his complex medical history and associated comorbidities, he remains at high risk for further functional and cognitive decline. He remains at increased risk for continued infection, respiratory decline, and Code Status: No Code DNR Plan: * LEGAL DECISION MAKER -patient is currently unable to participate in his own healthcare decision making. In the absence of documented advanced directives, per [place] statutes decision making would fall to his Sister Beata Morgan [phone] by proxy * GOALS -no significant changes in goals of care. Continue with aggressive treatment. Should medical providers noticed a decline patient status, sister asked that she be contacted * CODE STATUS - FULL CODE * SYMPTOMS Pain - multifactorial including bedbound status, blood draws, invasive lines, tubes, procedures, etc. patient's home medication reflects oxycodone 10/325 mg p.o. every 4 hours as needed. In light of his reported abuse of this fluid use any pain medication judiciously. Currently managed with fentanyl GTT. Patient will most likely require some sort of opioid therapy once extubated. We will make further recommendations as case evolves. Confusion - most likely multifactorial including, illicit substance use, worsening respiratory status, and presumed infection. Defer to critical care to get over the acute phase. Once patient is more stable I would suggest roseanne romo to specifically opine on the patient's capacity to participate in healthcare decision making. It is unclear at this time if the patient was actually attempting suicide. It is also unclear if he is able to fully understand the implications of him refusing care and/or continuing with his medication regimens. Dyspnea - currently mechanically ventilated. Continue with nebulizer treatments and good pulmonary toilet, though I'm not sure how much the patient will be able to participate. Should the patient require intubation, his sister would want to proceed with this. Defer to critical care. Palliative care will continue to follow during hospital course as condition evolves, to assist patient/decision maker with understanding of medical conditions, weighing benefits/burdens of treatment options, for clarification of goals of treatment. Additionally will assist with any symptoms of palliative concern. Case discussed with RN Vadim) at bedside. Attestation Attestation: To help prompt me to consider important information that might be impacting today's encounter and assessment, information from prior notes written by myself or my colleagues may have been "brought forward" into today's note. My signature on this note, however, is an attestation that I personally performed the exam, history, and/or decision-making noted today, and, unless otherwise indicated, the interactions with patient, family, and staff as well as the review of records all occurred today. I also attest that the listed assessment and stated plan reflect my best clinical judgment today based on the combination of historical information, prior notes, and today's exam/ interactions. When time spent is documented, it refers only to time spent today by the signer, or if indicated, combined time spent today by collaborating physician/nurse practitioner.
--- NOTE | 2018-10-08 15:30 | P.RAD ---
Post Procedure Progress Note - Pre Procedure Diagnosis (1) Fever - Post Procedure Diagnosis (1) Fever - Procedure Information Procedure Date: 10/08/18 Supervising Radiologist: CRISTINA Simth Estimated blood loss (mL): 1 Anesthesia: Other (vented) - Plan of Activity Patient to Unit: [facility] See PACS Report for procedural detail/treatment.
[2018-10-08] MEDS ORDERED: Gadobutrol PF 10 MMOL/10 ML Vial (for RAD) IV.SIG ONE (16:04)
[2018-10-08 16:14] LABS: Total Protein,CSF 49.4 mg/dL (15.0-45.0)
--- NOTE | 2018-10-08 16:29 | MR ---
EXAM DATE: 10/08/2018 4:15 PM EST AGE/SEX: 48 years / Male INDICATIONS: Mass. CLINICAL DATA: This is the patient's initial encounter. Patient reports that signs and symptoms have been present for 2 days and indicates a pain score of Nonresponsive. MEDICAL/SURGICAL HISTORY: Hepatitis C. HIV. Chronic obstructive pulmonary disease. None. COMPARISON: [facility] – [place], MR HEAD W & W/O CONTRAST, 09/30/2018. . TECHNIQUE: Multiplanar, multisequence examination of the brain was performed without and with 10 ml G adavist (gadobutrol) contrast as a single exam dose. FINDINGS: Cerebrum: The small subcortical white matter hyperintensity described in the left frontoparietal reg ion along the convexity of the brain has significantly decreased in size. There is no evidence of abn ormal enhancement, mass effect or surrounding edema. Cerebral hemispheres are otherwise stable and normal in appearance. There are no characteristic findings of acute infarct, hemorrhage or mass. There is no evidence of ab normal enhancement. White Matter: No significant signal abnormalities are seen in the white matter. Posterior Fossa: The cerebellum and brainstem are intact. The 4th ventricle is midline. The cerebel lopontine angle is unremarkable. The cerebellar tonsils are normal in position. Diffusion Imaging: No focal areas of restricted diffusion are seen. No evidence of acute infarction . Extracranial: The visualized portions of the orbits and paranasal sinuses are unremarkable. Post Contrast: No abnormal areas of parenchymal or dural enhancement. No evidence of blood-brain ba rrier breakdown. CONCLUSION: 1. Subcortical T2 hyperintensity in the left frontoparietal region has markedly decreased in size. R apid resolution would be more indicative of an inflammatory or ischemic process. 2. No characteristic findings of acute infarct, hemorrhage or mass. Electronically signed by: Harjeet Cazares MD 10/08/2018 4:27 PM EST
--- NOTE | 2018-10-08 16:30 | IR ---
EXAM DATE: 10/08/2018 3:55 PM EST AGE/SEX: 48 years / Male INDICATIONS: Intubated patient presents with history of seizures, fevers and Alter Mental Status in need of a Lumbar Puncture with Opening Pressures for further diagnosis. CLINICAL DATA: This is the patient's initial encounter. Patient reports that signs and symptoms have been present for 1 day and indicates a pain score of Nonresponsive. MEDICAL/SURGICAL HISTORY: Chronic obstructive pulmonary disease. Hepatitis C. AIDS, Anxiety, B ipolar 1 Disorder, MRSA, HIV disease, Depression, Neuropathy, PTSD, Pneumocystosis pneumonia, Suicid al Intentions. None. COMPARISON: . FLUORO TIME (min): 0.3 IMAGE SERIES: 1 ACCESS SITE: L3-4 LUMBAR PUNCTURE TIME: 1520 hours OPENING PRESSURE: 23.75 cm of water CLOSING PRESSURE: not requested FLUID: Total volume of 16 cc of clear fluid was removed. Fluid was sent to lab for ordered studies. ; . . PROCEDURE: 1. Fluoroscopic guided lumbar puncture. The risks, benefits and alternatives to the procedure were explained and verbal and written consent w as obtained. The site was prepped in sterile fashion. Full sterile technique was used, including ca p, mask, sterile gloves and gown and a large sterile sheet. Hand hygiene and 2% chlorhexidine and/or betadine/alcohol prep was utilized per protocol for cutaneous antisepsis. The skin and subcutaneous tissues were infiltrated with local anesthetic solution. With fluoroscopic guidance the lumbar thecal sac was punctured at the level above. The fluid describ ed above was removed without difficulty. The patient tolerated the procedure well and there were no complications. CONCLUSION: 1. Uncomplicated fluoroscopically guided lumbar puncture. Electronically signed by: Alexi Metz MD 10/08/2018 4:29 PM EST
[2018-10-08 17:18] LABS: Lymphocytes, CSF 69 %; Monocytes,CSF 29 %; Neutrophils,CSF 0 %; RBC on Tube 4 4 /mm3
[2018-10-09] MEDS: Propofol 1000 mg/100 ml Inj 1,000 MG/100 ML BOTTLE IV.CONT PRN ×4 (00:43→17:45)
[2018-10-09] MEDS: Acetaminophen 325 MG Tablet PO PRN ×3 (00:44→18:24)
[2018-10-09] MEDS: SULFADIAZINE 500 MG PO SCH ×4 (02:30→20:00)
[2018-10-09] MEDS: Sodium Chloride 0.45 % Inj 1,000 ML IV.CONT SCH ×3 (04:24→18:25)
[2018-10-09] MEDS: Heparin - SQ 10,000 UNITS/ML Vial SQ SCH ×3 (04:25→18:23)
[2018-10-09] MEDS: Oral Hygiene Kit OROPHARYNG SCH ×3 (04:25→15:52)
[2018-10-09 06:47] LABS: Baso % (Auto) 0.3 % (0.0-2.0); Eos # (Auto) 0.1 th/mm3 (0.0-0.4); Eos % (Auto) 1.6 % (0.0-4.0); Hematocrit 26.8 % (39.0-51.0); Hemoglobin 9.1 gm/dL (13.0-17.0); Lymph # (Auto) 0.3 th/mm3 (1.0-4.8); Lymph % (Auto) 7.7 % (9.0-44.0); Mean Corpuscular Hemoglobin 32.7 pg (27.0-34.0); Mean Corpuscular Volume 95.9 fL (80.0-100.0); Mean Platelet Volume 10.6 fL (7.0-11.0); Mono # (Auto) 0.3 th/mm3 (0.0-0.9); Neut # (Auto) 3.6 th/mm3 (1.8-7.7); Neut % (Auto) 83.4 % (16.0-70.0); Platelet Count 54 th/mm3 (150-450); Red Blood Count 2.79 mil/mm3 (4.50-5.90); Red Cell Distribution Width 16.4 % (11.6-17.2); White Blood Count 4.3 th/mm3 (4.0-11.0)
[2018-10-09 07:17] LABS: Albumin 1.9 g/dL (3.4-5.0); Carbon Dioxide 21.3 meq/L (21.0-32.0); Magnesium 2.2 mg/dL (1.5-2.5); Phosphorus 2.1 mg/dL (2.5-4.9); Potassium 3.4 meq/L (3.5-5.1); Total Protein 6.1 g/dL (6.4-8.2)
[2018-10-09 08:06] LABS: Lymphocytes 3 % (9-44)
[2018-10-09 08:07] LABS: Platelet Morphology Normal (Normal)
[2018-10-09] MEDS: Chlorhexidine 0.12% Oral Kit 15 ML UDC OROPHARYNG SCH ×2 (09:28→20:00)
[2018-10-09] MEDS: Famotidine PF Inj 20 MG/2 ML Vial IV.PUSH SCH ×2 (09:29→21:00)
[2018-10-09] MEDS: Senna/Docusate Sodium 8.6/50 MG Tablet PO SCH ×2 (09:29→21:00)
[2018-10-09] MEDS: Famotidine 20 MG Tablet PO SCH ×2 (09:29→21:00)
[2018-10-09] MEDS: Topiramate 25 MG Tablet PO SCH ×2 (09:30→21:00)
[2018-10-09] MEDS: Leucovorin 5 MG Tablet PO SCH (09:30)
[2018-10-09] MEDS: Potassium Chlor 20 mEq Premix 20 MEQ/100 ML PIGGYBACK IV.SIG PRN ×2 (09:31→18:24)
[2018-10-09] MEDS: fentaNYL 10 mcg/mL Premix Drip 2,500 MCG/250 ML BAG IV.SIG PRN (09:31)
[2018-10-09] MEDS ORDERED: Vancomycin Consult Pharmacy 1 EACH OTHER SCH (11:15)
--- NOTE | 2018-10-09 11:20 | P.PNID ---
Subjective Remarks: Patient is currently intubated and on the ventilator. Sedated. Nonresponsive. Temperature spike up to 103. Straight catheterization For his 500 cc of urine this morning. No significant secretions via the endotracheal tube. CSF culture has no growth. This is a 48-year-old white male who has AIDS. The patient was recently admitted to the hospital and treated for headaches. He received empiric antibiotic treatment. He refused a lumbar puncture and therefore, it was difficult to determine the cause of his headaches. MRI did not show any significant lesions. The patient presented to the emergency department with seizure. His IgM titer for toxoplasma was negative, but the IgG was positive. The patient's toxicology screen is positive for cocaine and cannabinoids. Past Medical History: PAST MEDICAL HISTORY: Depression, COPD, bipolar disorder, anxiety disorder, hepatitis C, neuropathy, HIV, posttraumatic stress disorder, history of MRSA. Allergies/Adverse Reactions: Allergies haloperidol Allergy (Severe, Verified 09/25/18 17:57) Swelling TONGUE SWELLING - Per pt. Objective Vital Signs 10/08/18 11:50 10/08/18 12:00 10/08/18 13:45 Temperature 102.0 F H Pulse Rate 110 H 116 H 109 H Respiratory Rate 17 17 19 Blood Pressure 106/58 L Pulse Oximetry 97 96 10/08/18 14:00 10/08/18 14:15 10/08/18 14:30 Temperature Pulse Rate 109 H 109 H 110 H Respiratory Rate 18 18 20 Blood Pressure 99/56 L 99/56 L 112/60 Pulse Oximetry 96 96 98 10/08/18 14:31 10/08/18 14:45 10/08/18 15:00 Temperature 100 F H Pulse Rate 110 H 111 H 112 H Respiratory Rate 18 20 22 Blood Pressure 112/60 109/63 Pulse Oximetry 98 100 10/08/18 15:15 10/08/18 15:38 10/08/18 16:00 Temperature 101.5 F H Pulse Rate 111 H 105 H Respiratory Rate 21 22 Blood Pressure 110/65 Pulse Oximetry 100 100 100 10/08/18 16:02 10/08/18 16:15 10/08/18 16:17 Temperature Pulse Rate 112 H Respiratory Rate Blood Pressure 110/65 114/66 Pulse Oximetry 10/08/18 16:27 10/08/18 16:39 10/08/18 16:45 Temperature Pulse Rate 108 H 108 H Respiratory Rate 19 19 Blood Pressure 112/64 112/64 Pulse Oximetry 94 L 100 83 L 10/08/18 16:55 10/08/18 16:58 10/08/18 17:00 Temperature Pulse Rate 106 H Respiratory Rate 22 19 19 Blood Pressure 110/65 Pulse Oximetry 94 L 92 L 10/08/18 17:10 10/08/18 18:00 10/08/18 19:00 Temperature 101.5 F H Pulse Rate 106 H 103 H 101 H Respiratory Rate 17 16 14 Blood Pressure 110/65 106/59 L 99/57 L Pulse Oximetry 95 96 10/08/18 20:00 10/08/18 21:00 10/08/18 21:11 Temperature 100.1 F H Pulse Rate 100 H 99 H 98 H Respiratory Rate 15 16 14 Blood Pressure 96/52 L 94/55 L Pulse Oximetry 96 95 100 10/08/18 22:00 10/08/18 23:00 10/09/18 00:00 Temperature 101.8 F H Pulse Rate 109 H 104 H 102 H Respiratory Rate 25 H 16 16 Blood Pressure 119/60 106/56 L 103/55 L Pulse Oximetry 91 L 93 L 95 10/09/18 00:19 10/09/18 00:44 10/09/18 01:00 Temperature Pulse Rate 104 H 110 H Respiratory Rate 27 H 27 H 22 Blood Pressure 110/58 L Pulse Oximetry 95 93 L 10/09/18 02:00 10/09/18 03:00 10/09/18 03:32 Temperature Pulse Rate 113 H 112 H 109 H Respiratory Rate 18 20 24 Blood Pressure 106/59 L 101/53 L Pulse Oximetry 97 93 L 95 10/09/18 04:00 10/09/18 05:00 10/09/18 06:00 Temperature Pulse Rate 114 H 111 H 109 H Respiratory Rate 22 33 H 22 Blood Pressure 92/50 L 101/55 L 104/56 L Pulse Oximetry 94 L 95 94 L 10/09/18 07:00 10/09/18 07:24 10/09/18 08:00 Temperature Pulse Rate 109 H 116 H Respiratory Rate 20 24 22 Blood Pressure 107/56 L 116/59 L Pulse Oximetry 94 L 94 L 92 L 10/09/18 09:00 10/09/18 11:00 10/09/18 11:01 Temperature Pulse Rate 113 H 113 H Respiratory Rate 14 24 24 Blood Pressure 112/55 L Pulse Oximetry 94 L 95 Intake & Output 10/08/18 10/09/18 10/09/18 18:59 06:59 18:59 Intake Total 1531 / 1531 1200 / 1200 250 / 250 Output Total 900 / 900 425 / 425 Balance 631 / 631 775 / 775 250 / 250 Intake: IV 1050 / 1050 1200 / 1200 250 / 250 LR 1000 mL Inj 1,000 ML @ 125 300 / 300 mls/hr IV.CONT .Q8H MINOR Rx#: [id number] Diprivan 1000 mg/100 ml Inj 1, 200 / 200 200 / 200 000 mg In 100 ml @ 5 MCG/KG/MIN 2.955 mls/hr IV.CONT TITRATE PRN Rx#:[id number] 1/2 Normal Saline Inj 1,000 ML 1000 / 1000 @ 84 mls/hr IV.CONT .[id number] MINOR Rx#:[id number] Diflucan 400 mg Premix Bag 200 200 / 200 ML @ 100 mls/hr IV.SIG Q24H MINOR Rx#:[id number] NS Inj 250 ML @ 15 mls/hr IV. 100 / 100 SIG ONCE MINOR Rx#:[id number] fentaNYL 10 mcg/mL Premix Drip 250 / 250 250 / 250 2,500 mcg In 250 ml @ 50 MCG/HR 5 mls/hr IV.SIG TITRATE PRN Rx #:[id number] Other 250 / 250 Plt Pheresis B Leukoreduced 250 / 250 Unit [id number] Intake (Blood Product) Amt 231 / 231 Plt Pheresis B Leukoreduced 231 / 231 Unit [id number] Output: Urine 850 / 850 Urine Amount (Catheter) 425 / 425 Straight 425 / 425 Gastric Drainage 50 / 50 Orogastric Tube 50 / 50 Other: Date of Last Bowel Movement 10/08/18 10/08/18 10/08/18 # Bowel Movements 0 # Incontinent Bowel Movements 1 10/07/18 08:00 Blood - Peripheral Aerobic Blood Culture - Preliminary No growth in 2 days 10/07/18 08:00 Blood - Peripheral Anaerobic Blood Culture - Preliminary No growth in 2 days 10/07/18 08:05 Blood - Peripheral Aerobic Blood Culture - Preliminary No growth in 2 days 11/19/18 08:05 Blood - Peripheral Anaerobic Blood Culture - Preliminary No growth in 2 days 10/08/18 15:20 Lumbar Puncture Gram Stain - Final 10/08/18 15:20 Lumbar Puncture CSF Culture - Preliminary No growth in 24 hours 10/08/18 06:45 Sputum - Endotracheal Gram Stain - Final 10/08/18 06:45 Sputum - Endotracheal Sputum Culture - Pending 10/07/18 08:15 Nasal Wash Influenza Types A,B Antigen - Final Negative for FLU A and B antigen Infection due to influenza A or B cannot be ruled out since the antigen present in the sample may be below the detection limit of the test. Lab - Hematology Results 10/07/18 10/08/18 10/09/18 13:35 05:00 06:06 WBC 11.1 H 8.2 4.3 RBC 3.12 L 2.89 L 2.79 L Hgb 9.9 L D 9.6 L 9.1 L Hct 30.4 L 27.1 L 26.8 L MCV 97.5 94.0 D 95.9 MCH 31.8 33.1 32.7 MCHC 32.6 35.3 34.0 RDW 15.5 15.5 16.4 Plt Count 56 L 47 L 54 L MPV 10.3 10.6 10.6 Prelim Diff (Auto) Manual diff required Slide review pending Slide review pending Neut % (Auto) 86.2 H 83.4 H Lymph % (Auto) 6.1 L 7.7 L Dooly % (Auto) 7.5 7.0 Eos % (Auto) 0.0 1.6 Baso % (Auto) 0.2 0.3 Neut # (Auto) 7.1 3.6 Lymph # (Auto) 0.5 L 0.3 L Dooly # (Auto) 0.6 0.3 Eos # (Auto) 0.0 0.1 Baso # (Auto) 0.0 0.0 WBC Differential Manual diff final Manual diff final Manual diff final Seg Neuts % (Manual) 60 72 H 73 H Band Neuts % (Manual) 12 H 20 H 24 H Lymphocytes % (Manual) 5 L 5 L 3 L Monocytes % (Manual) 7 3 Metamyelocytes % (Man) 15 H Myelocytes % (Man) 1 H Abs Neuts (Manual) 9.8 H 7.5 4.2 Differential Comment . . . Toxic Granulation 1+ H 2+ H Platelet Estimate Low L Low L Low L Platelet Morphology Normal Normal Normal Lab - Chemistry Results 10/07/18 10/07/18 10/07/18 11:15 13:35 13:35 Sodium 151 H Potassium 3.4 L Chloride 122 H Carbon Dioxide 19.0 L Anion Gap 10 BUN 29 H Creatinine 1.33 H Estimated GFR 57 L Random Glucose 108 H Lactic Acid 2.9 H 2.3 H Calcium 7.1 L* D Prot Corrected Calcium 7.5 L Phosphorus Magnesium 1.5 Total Bilirubin 0.8 AST 117 H ALT 30 Alkaline Phosphatase 43 L Ammonia Total Protein 6.4 D Albumin 2.1 L D 10/08/18 10/08/18 10/09/18 00:05 05:00 06:06 Sodium 150 H 150 H Potassium 3.6 3.4 L Chloride 120 H 119 H Carbon Dioxide 21.4 21.3 Anion Gap 9 10 BUN 32 H 28 H Creatinine 1.17 1.17 Estimated GFR 66 L 66 L Random Glucose 119 H 84 Lactic Acid Calcium 7.3 L* 7.0 L* Prot Corrected Calcium 7.7 L 7.5 L Phosphorus 2.9 2.1 L Magnesium 1.9 2.2 Total Bilirubin 0.5 0.5 AST 111 H 90 H ALT 29 25 Alkaline Phosphatase 45 38 L Ammonia 20 Total Protein 6.4 6.1 L Albumin 2.2 L 1.9 L Imaging: ITS Impressions Head CT 10/07/18 07:55 CONCLUSION: 1. Negative CT Head non contrast. 2. Stable compared to recent study on 09/25/2018 . Chest X-Ray 10/07/18 23:11 CONCLUSION: 1. Endotracheal tube and nasogastric tube in place. 2. No other significant interval change with persistent bilateral pulmonary opacity. Head MRI 10/08/18 00:00 CONCLUSION: 1. Subcortical T2 hyperintensity in the left frontoparietal region has markedly decreased in size. Rapid resolution would be more indicative of an inflammatory or ischemic process. 2. No characteristic findings of acute infarct, hemorrhage or mass. Lumbar Puncture Fluoroscopy 10/08/18 00:00 CONCLUSION: 1. Uncomplicated fluoroscopically guided lumbar puncture. Physical Exam: PHYSICAL EXAMINATION: GENERAL: Patient intubated. HEENT: Head is atraumatic. Extraocular movements unable to fully assess currently. No icterus. NECK: Supple. No swelling or adenopathy. LUNGS: Bibasilar rhonchi. HEART: Regular S1 and S2 without murmurs. ABDOMEN: Decreased bowel sounds. Soft. EXTREMITIES: No clubbing, cyanosis or edema. SKIN: The face, head and neck is flushed and hyperemic. No diffuse skin rash. NEUROLOGIC: Unable to assess. PSYCHIATRIC: Unable to assess. Assessment and Plan - Plan IMPRESSION: 1. Seizure in patient with acquired immunodeficiency syndrome. 2. Altered mental status. ? etiology. 3. Acute encephalopathy. 4. Fever. 5. Possible sepsis. RECOMMENDATIONS: 1. Continue Diflucan. 2. Continue the prophylactic azithromycin for MAC. Discontinue Bactrim prophylaxis because he is receiving sulfadiazine. 3. Monitor CSF culture. 4. Add vancomycin. Pharmacy to monitor. 5. Blood cultures x 2. 6. Continue antibiotic treatment for toxoplasma since his toxo IgG was positive. Continue pyrimethamine 75 mg p.o. daily plus sulfadiazine 1500 mg p.o. 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 7. Monitor temperature.
[2018-10-09] MEDS: Vancomycin Inj 1,250 MG in Sodium Chlor 0.9% Inj 250 ML IV.SIG SCH (13:45)
--- NOTE | 2018-10-09 17:20 | P.PNCC ---
Subjective Subjective Remarks/Hospital Course: 48yM with history of HIV and CD4+ count <20 presenting with seizure and fever. The patient was admitted from 09/26-10/05/18 for fever and headache, had an initial attempt at LP performed in the ED but was unsuccessful and subsequently declined any further attempts. He had blood cultures which were negative at 5 days and positive toxoplasma IgG, treated empirically with IV fluconazole and discharged home with PO fluconazole and prophylactic azithromycin and bactrim. The patient is chronic non-compliant with his HIV medications and was reportedly not taking his discharge meds. Today, he was at home and had a 2 minute seizure witnessed by his sister Beata. He was brought to the ED via EMS and had a temp of 101F and heart rate of 150. He was given a dose of vanco, ceftazidime, and acyclovir along with 3L NS bolus. He had a head CT which was unchanged from his previous visit. On my evaluation, the patient is encephalopathic and oriented to name only. He is unable to provide any further meaningful details to HPI. I spoke with the patient's sister Beata, who says that the patient is frequent non-compliant with his medications, reportedly took "a whole bottle of percocet" two days ago (just after discharge), and "hasn't been in his right mind since then. He can't finish a sentence and has been urinating himself". 10/08: Patient intubated overnight for continued respiratory distress/ hypoxia. Currently sedated and intubated. 10/09: Patient growing MRSA in sputum culture, febrile to 103F, CSF shows no organisms on gram stain and cultures pending. Objective Vital Signs / I&O: Vital Signs 10/08/18 18:00 10/08/18 19:00 10/08/18 20:00 Temperature 100.1 F H Pulse Rate 103 H 101 H 100 H Respiratory Rate 16 14 15 Blood Pressure 106/59 L 99/57 L 96/52 L Pulse Oximetry 95 96 96 10/08/18 21:00 10/08/18 21:11 10/08/18 22:00 Temperature Pulse Rate 99 H 98 H 109 H Respiratory Rate 16 14 25 H Blood Pressure 94/55 L 119/60 Pulse Oximetry 95 100 91 L 10/08/18 23:00 10/09/18 00:00 10/09/18 00:19 Temperature 101.8 F H Pulse Rate 104 H 102 H 104 H Respiratory Rate 16 16 27 H Blood Pressure 106/56 L 103/55 L Pulse Oximetry 93 L 95 95 10/09/18 00:44 10/09/18 01:00 10/09/18 02:00 Temperature Pulse Rate 110 H 113 H Respiratory Rate 27 H 22 18 Blood Pressure 110/58 L 106/59 L Pulse Oximetry 93 L 97 10/09/18 03:00 10/09/18 03:32 10/09/18 04:00 Temperature Pulse Rate 112 H 109 H 114 H Respiratory Rate 20 24 22 Blood Pressure 101/53 L 92/50 L Pulse Oximetry 93 L 95 94 L 10/09/18 05:00 10/09/18 06:00 10/09/18 07:00 Temperature Pulse Rate 111 H 109 H 109 H Respiratory Rate 33 H 22 20 Blood Pressure 101/55 L 104/56 L 107/56 L Pulse Oximetry 95 94 L 94 L 10/09/18 07:24 10/09/18 08:00 10/09/18 09:00 Temperature Pulse Rate 116 H 113 H Respiratory Rate 24 22 14 Blood Pressure 116/59 L 112/55 L Pulse Oximetry 94 L 92 L 94 L 10/09/18 10:00 10/09/18 11:00 10/09/18 11:01 Temperature 103 F H Pulse Rate 112 H 113 H Respiratory Rate 21 24 24 Blood Pressure 111/61 97/54 L Pulse Oximetry 94 L 95 95 10/09/18 12:00 10/09/18 13:00 10/09/18 13:02 Temperature 102.2 F H Pulse Rate 117 H 112 H 111 H Respiratory Rate 24 24 25 H Blood Pressure 120/59 L 105/60 105/58 L Pulse Oximetry 93 L 95 95 10/09/18 14:00 10/09/18 15:00 10/09/18 15:43 Temperature 101.2 F H Pulse Rate 109 H 108 H Respiratory Rate 25 H 25 H 24 Blood Pressure 113/64 107/65 Pulse Oximetry 95 95 94 L 10/09/18 16:00 Temperature Pulse Rate 113 H Respiratory Rate 26 H Blood Pressure 113/63 Pulse Oximetry 95 Intake & Output 10/08/18 10/09/18 10/09/18 18:59 06:59 18:59 Intake Total 1531 / 1531 1200 / 1200 912.5 / 912.5 Output Total 900 / 900 425 / 425 Balance 631 / 631 775 / 775 912.5 / 912.5 Intake: IV 1050 / 1050 1200 / 1200 912.5 / 912.5 LR 1000 mL Inj 1,000 ML @ 125 300 / 300 mls/hr IV.CONT .Q8H [facility] Rx#: [id number] Diprivan 1000 mg/100 ml Inj 1, 200 / 200 200 / 200 100 / 100 000 mg In 100 ml @ 5 MCG/KG/MIN 2.955 mls/hr IV.CONT TITRATE PRN Rx#:[id number] 1/2 Normal Saline Inj 1,000 ML 1000 / 1000 @ 84 mls/hr IV.CONT .[id number] [facility] Rx#:[id number] Diflucan 400 mg Premix Bag 200 200 / 200 200 / 200 ML @ 100 mls/hr IV.SIG Q24H [facility] Rx#:[id number] KCl 20 mEq Premix Inj 20 meq In 100 / 100 100 ml @ 50 mls/hr IV.SIG Q2H [facility] Rx#:[id number] NS Inj 250 ML @ 15 mls/hr IV. 100 / 100 SIG ONCE [facility] Rx#:[id number] Vancomycin Inj 1,250 MG In NS 262.5 / 262.5 Inj 250 ML @ 250 mls/hr IV.SIG Q18H [facility] Rx#:[id number] fentaNYL 10 mcg/mL Premix Drip 250 / 250 250 / 250 2,500 mcg In 250 ml @ 50 MCG/HR 5 mls/hr IV.SIG TITRATE PRN Rx #:[id number] Other 250 / 250 Plt Pheresis B Leukoreduced 250 / 250 Unit [id number] Intake (Blood Product) Amt 231 / 231 Plt Pheresis B Leukoreduced 231 / 231 Unit [id number] Output: Urine 850 / 850 Urine Amount (Catheter) 425 / 425 Straight 425 / 425 Gastric Drainage 50 / 50 Orogastric Tube 50 / 50 Other: Date of Last Bowel Movement 10/08/18 10/08/18 10/08/18 # Bowel Movements 0 # Incontinent Bowel Movements 1 Result Diagrams: 10/09/18 06:06 10/09/18 06:06 Objective Remarks: GEN: Ill-appearing, intubated and sedated HEENT: NCAT, ETT and OGT present NECK: No JVD, trachea midline CARDIO: Tachy to 100s, regular PULM: Mechanical breath sounds bilaterally ABD/GI: Soft, non-tender, mildly distended, easily reducible umbilical hernia EXT/MSK: No peripheral edema SKIN: Flushed, mildly diaphoretic NEURO: GCS 9T (E3VTM5), RASS 0 to -1 PSYCH: No current agitation Assessment and Plan - Problem List (1) Acute encephalopathy Code(s): G93.40 - Encephalopathy, unspecified Status: Acute (2) Seizure Code(s): R56.9 - Unspecified convulsions Status: Acute (3) HIV (human immunodeficiency virus infection) Code(s): B20 - Human immunodeficiency virus [HIV] disease Status: Acute (4) Sepsis Code(s): A41.9 - Sepsis, unspecified organism Status: Acute - Assessment and Plan Plan: 48yM with history of HIV/AIDS, recently admitted for presumed fungal meningitis , reported medication non-compliance and substance abuse, presenting with seizure, fever/ sepsis, and encephalopathy NEURO: -Seizure precautions -Neurology following, no seizure activity seen on EEG -CSF analysis- no organisms seen, 6 WBCs/ 4 RBCs/ clear, opening pressure 23, no growth in 24 hrs -Continue home dose of topamax -MRI brain with contrast to better evaluate lesion seen on last admission (left convexity parietal region) -Antifungals as below CARDIO: -BP stable overnight, still borderline tachy -Echo performed on 05/02/18, showed EF 55-60%, mild TR, no vegetations PULM: -Spontaneous breathing trials, tolerated several hours today -Vent bundle -Nebs F/E/N: -1/2 NS @ 84 mL/hr, sodium stable at 150, add free water flushes and d/c IVF when tube feeds are at goal -Monitor Is and Os -Electrolyte replacement protocol RENAL: -MIGUEL ANGEL, creat 1.17 (stable) -Straight cath PRN ID: -ID following (Dr. Toribio) * CSF negative thus far * Sputum culture (+) for MRSA -Continue diflucan, pyrimethamine, sulfadiazine, leucovorin, vancomycin, prophylactic azithromycin PROPHY: -SCDs, SQH -PPI Overall: This patient is critically ill and at very high risk for deterioration. He requires continued ICU level of care. Level 2 follow up To help prompt me to consider important information that might be impacting today's encounter and assessment, information from prior notes written by myself or my colleagues may have been "brought forward" into today's note. My signature on this note, however, is an attestation that I personally performed the exam, history, and/or decision-making noted today, and, unless otherwise indicated, the interactions with patient, family, and staff as well as the review of records all occurred today. I also attest that the listed assessment and stated plan reflect my best clinical judgment today based on the combination of historical information, prior notes, and today's exam/ interactions. Code Status: Full (4) Sepsis Qualifiers: Sepsis type: sepsis due to unspecified organism Qualified Code(s): A41.9 - Sepsis, unspecified organism
[2018-10-09] MEDS: Beneprotein Powder Packet G-TUBE SCH (18:24)
[2018-10-10] MEDS: Oral Hygiene Kit OROPHARYNG SCH ×5 (00:46→23:51)
[2018-10-10] MEDS: Sodium Chloride 0.45 % Inj 1,000 ML IV.CONT SCH ×3 (00:46→23:51)
[2018-10-10] MEDS: SULFADIAZINE 500 MG PO SCH ×4 (01:55→19:58)
[2018-10-10] MEDS: Heparin - SQ 10,000 UNITS/ML Vial SQ SCH ×3 (01:55→23:50)
[2018-10-10] MEDS: fentaNYL 10 mcg/mL Premix Drip 2,500 MCG/250 ML BAG IV.SIG PRN ×2 (01:56→20:23)
[2018-10-10] MEDS: Propofol 1000 mg/100 ml Inj 1,000 MG/100 ML BOTTLE IV.CONT PRN ×2 (01:56→20:23)
[2018-10-10] MEDS: Acetaminophen 325 MG Tablet PO PRN ×2 (01:57→16:34)
[2018-10-10 05:54] LABS: Baso % (Auto) 0.7 % (0.0-2.0); Eos # (Auto) 0.1 th/mm3 (0.0-0.4); Eos % (Auto) 2.4 % (0.0-4.0); Hematocrit 26.8 % (39.0-51.0); Lymph # (Auto) 0.4 th/mm3 (1.0-4.8); Mean Corpuscular HGB Conc 33.5 % (32.0-36.0); Mean Corpuscular Hemoglobin 32.5 pg (27.0-34.0); Mean Platelet Volume 10.5 fL (7.0-11.0); Mono # (Auto) 0.3 th/mm3 (0.0-0.9); Mono % (Auto) 6.8 % (0.0-8.0); Neut # (Auto) 3.1 th/mm3 (1.8-7.7); Neut % (Auto) 79.1 % (16.0-70.0); Platelet Count 52 th/mm3 (150-450); Red Blood Count 2.76 mil/mm3 (4.50-5.90); Red Cell Distribution Width 16.1 % (11.6-17.2)
[2018-10-10 06:20] LABS: Albumin 1.7 g/dL (3.4-5.0); Calcium 7.1 mg/dL (8.5-10.1); Carbon Dioxide 21.1 meq/L (21.0-32.0); Magnesium 2.4 mg/dL (1.5-2.5); Phosphorus 2.1 mg/dL (2.5-4.9); Potassium 3.7 meq/L (3.5-5.1); Total Protein 6.3 g/dL (6.4-8.2)
[2018-10-10 08:29] LABS: Dohle Bodies Present; Eosinophils 2 % (0-4); Lymphocytes 4 % (9-44); Monocytes 6 % (0-8); Toxic Granulation 1+
[2018-10-10 08:30] LABS: Platelet Morphology Normal (Normal)
[2018-10-10] MEDS: Famotidine 20 MG Tablet PO SCH ×2 (09:12→19:59)
[2018-10-10] MEDS: Topiramate 25 MG Tablet PO SCH ×2 (09:12→19:59)
[2018-10-10] MEDS: Senna/Docusate Sodium 8.6/50 MG Tablet PO SCH ×2 (09:12→19:59)
[2018-10-10] MEDS: Leucovorin 5 MG Tablet PO SCH (09:12)
[2018-10-10] MEDS: Chlorhexidine 0.12% Oral Kit 15 ML UDC OROPHARYNG SCH ×2 (09:18→19:59)
[2018-10-10] MEDS: Beneprotein Powder Packet G-TUBE SCH ×3 (09:20→23:49)
[2018-10-10] MEDS: Famotidine PF Inj 20 MG/2 ML Vial IV.PUSH SCH ×2 (09:53→19:59)
--- NOTE | 2018-10-10 10:35 | P.PNCC ---
Subjective Subjective Remarks/Hospital Course: 48yM with history of HIV and CD4+ count <20 presenting with seizure and fever. The patient was admitted from 09/26-10/05/18 for fever and headache, had an initial attempt at LP performed in the ED but was unsuccessful and subsequently declined any further attempts. He had blood cultures which were negative at 5 days and positive toxoplasma IgG, treated empirically with IV fluconazole and discharged home with PO fluconazole and prophylactic azithromycin and bactrim. The patient is chronic non-compliant with his HIV medications and was reportedly not taking his discharge meds. Today, he was at home and had a 2 minute seizure witnessed by his sister Beata. He was brought to the ED via EMS and had a temp of 101F and heart rate of 150. He was given a dose of vanco, ceftazidime, and acyclovir along with 3L NS bolus. He had a head CT which was unchanged from his previous visit. On my evaluation, the patient is encephalopathic and oriented to name only. He is unable to provide any further meaningful details to HPI. I spoke with the patient's sister Beata, who says that the patient is frequent non-compliant with his medications, reportedly took "a whole bottle of percocet" two days ago (just after discharge), and "hasn't been in his right mind since then. He can't finish a sentence and has been urinating himself". 10/08: Patient intubated overnight for continued respiratory distress/ hypoxia. Currently sedated and intubated. 10/09: Patient growing MRSA in sputum culture, febrile to 103F, CSF shows no organisms on gram stain and cultures pending. 10/10: Remains intubated heavily sedated. Remains on suspected toxoplasmosis treatment with vitamin Timentin sulfadiazine and leucovorin. CSF cultures remains negative. Objective Vital Signs / I&O: Vital Signs 10/09/18 11:00 10/09/18 11:01 10/09/18 12:00 Temperature 102.2 F H Pulse Rate 113 H 117 H Respiratory Rate 24 24 24 Blood Pressure 97/54 L 120/59 L Pulse Oximetry 95 95 93 L 10/09/18 13:00 10/09/18 13:02 10/09/18 14:00 Temperature 101.2 F H Pulse Rate 112 H 111 H 109 H Respiratory Rate 24 25 H 25 H Blood Pressure 105/60 105/58 L 113/64 Pulse Oximetry 95 95 95 10/09/18 15:00 10/09/18 15:43 10/09/18 16:00 Temperature Pulse Rate 108 H 113 H Respiratory Rate 25 H 24 26 H Blood Pressure 107/65 113/63 Pulse Oximetry 95 94 L 95 10/09/18 19:13 10/09/18 20:00 10/09/18 23:00 Temperature 101.8 F H Pulse Rate 115 H 112 H 109 H Respiratory Rate 30 H 24 28 H Blood Pressure 107/59 L Pulse Oximetry 96 96 10/10/18 00:00 10/10/18 00:15 10/10/18 03:15 Temperature 100.7 F H Pulse Rate 110 H 107 H Respiratory Rate 26 H 28 H 28 H Blood Pressure 106/62 Pulse Oximetry 95 97 10/10/18 04:00 10/10/18 04:05 10/10/18 07:27 Temperature 101.0 F H Pulse Rate 107 H 104 H Respiratory Rate 25 H 26 H 24 Blood Pressure 115/58 L Pulse Oximetry 95 96 96 10/10/18 08:00 Temperature 99.7 F H Pulse Rate 108 H Respiratory Rate 25 H Blood Pressure 96/54 L Pulse Oximetry 95 Intake & Output 10/09/18 10/10/18 10/10/18 18:59 06:59 18:59 Intake Total 1319 / 1319 Output Total 575 / 575 775 / 775 Balance 1437.5 / 1437.5 544 / 544 Intake: IV 1200 / 1200 Diprivan 1000 mg/100 ml Inj 1, 200 / 200 100 / 100 000 mg In 100 ml @ 5 MCG/KG/MIN 2.955 mls/hr IV.CONT TITRATE PRN Rx#:[id number] 1/2 Normal Saline Inj 1,000 ML 1000 / 1000 1000 / 1000 @ 84 mls/hr IV.CONT .[id number] [facility] Rx#:[id number] Diflucan 400 mg Premix Bag 200 200 / 200 ML @ 100 mls/hr IV.SIG Q24H [facility] Rx#:[id number] KCl 20 mEq Premix Inj 20 meq In 100 / 100 100 / 100 100 ml @ 50 mls/hr IV.SIG Q2H [facility] Rx#:[id number] Vancomycin Inj 1,250 MG In NS 262.5 / 262.5 Inj 250 ML @ 250 mls/hr IV.SIG Q18H [facility] Rx#:[id number] fentaNYL 10 mcg/mL Premix Drip 250 / 250 2,500 mcg In 250 ml @ 50 MCG/HR 5 mls/hr IV.SIG TITRATE PRN Rx #:[id number] Tube Feeding 119 / 119 Output: Urine Amount (Catheter) 550 / 550 775 / 775 Straight 550 / 550 775 / 775 Gastric Drainage Orogastric Tube Other: # Incontinent Voids 2 Date of Last Bowel Movement 10/08/18 10/10/18 10/10/18 # Bowel Movements 0 1 Result Diagrams: 10/10/18 04:26 10/10/18 04:26 Objective Remarks: GEN: Ill-appearing, intubated and sedated HEENT: NCAT, ETT and OGT present NECK: No JVD, trachea midline CARDIO: Tachy to 100s, regular PULM: Mechanical breath sounds bilaterally. Few coarse rhonchi bilaterally ABD/GI: Soft, non-tender, mildly distended, easily reducible umbilical hernia EXT/MSK: No peripheral edema SKIN: Flushed, mildly diaphoretic NEURO: GCS 9T (E3VTM5), RASS 0 to -1. Heavily sedated for vent synchrony. Slightly moves extremities to pain Assessment and Plan - Assessment and Plan Plan: 48yM with history of HIV/AIDS, recently admitted for presumed fungal meningitis/ [employer] toxoplasmosis, reported medication non-compliance and substance abuse, presenting with seizure, fever/ sepsis, and encephalopathy NEURO: -Seizure precautions -Neurology following, no seizure activity seen on EEG -CSF analysis- no organisms seen, 6 WBCs/ 4 RBCs/ clear, opening pressure 23, no growth in 48 hrs -Continue home dose of topamax -MRI brain with contrast 10/08 Subcortical T2 hyperintensity in the left frontoparietal region has markedly decreased in size. Rapid resolution more indicative of an inflammatory or ischemic process. -Antifungals as below CARDIO: -BP stable overnight, still borderline tachy -Echo performed on 05/02/18, showed EF 55-60%, mild TR, no vegetations PULM: -Spontaneous breathing trials daily. Mental status will not permit extubation -Vent bundle -Nebs F/E/N: -1/2 NS @ 84 mL/hr, sodium stable at 150, add free water flushes and d/c IVF when tube feeds are at goal -Monitor Is and Os -Electrolyte replacement protocol RENAL: -MIGUEL ANGEL, creat stable -Straight cath PRN ID: -ID following (Dr. Toribio) * CSF negative thus far * Sputum culture (+) for MRSA -Continue diflucan, pyrimethamine, sulfadiazine, leucovorin, vancomycin, prophylactic azithromycin PROPHY: -SCDs, SQH -PPI Overall: This patient is critically ill and at very high risk for deterioration. He requires continued ICU level of care. Level 3 follow up To help prompt me to consider important information that might be impacting today's encounter and assessment, information from prior notes written by myself or my colleagues may have been "brought forward" into today's note. My signature on this note, however, is an attestation that I personally performed the exam, history, and/or decision-making noted today, and, unless otherwise indicated, the interactions with patient, family, and staff as well as the review of records all occurred today. I also attest that the listed assessment and stated plan reflect my best clinical judgment today based on the combination of historical information, prior notes, and today's exam/ interactions.
[2018-10-10] MEDS: Vancomycin Inj 1,250 MG in Sodium Chlor 0.9% Inj 250 ML IV.SIG SCH (11:07)
--- NOTE | 2018-10-10 12:01 | P.PNID ---
Subjective Remarks: Patient is currently intubated and on the ventilator. Sedated. Nonresponsive. Temperature remains elevated. No significant secretions via the endotracheal tube. CSF culture has no growth. This is a 48-year-old white male who has AIDS. The patient was recently admitted to the hospital and treated for headaches. He received empiric antibiotic treatment. He refused a lumbar puncture and therefore, it was difficult to determine the cause of his headaches. MRI did not show any significant lesions. The patient presented to the emergency department with seizure. His IgM titer for toxoplasma was negative, but the IgG was positive. The patient's toxicology screen is positive for cocaine and cannabinoids. Past Medical History: PAST MEDICAL HISTORY: Depression, COPD, bipolar disorder, anxiety disorder, hepatitis C, neuropathy, HIV, posttraumatic stress disorder, history of MRSA. Allergies/Adverse Reactions: Allergies haloperidol Allergy (Severe, Verified 09/25/18 17:57) Swelling TONGUE SWELLING - Per pt. Objective Vital Signs 10/09/18 12:00 10/09/18 13:00 10/09/18 13:02 Temperature 102.2 F H Pulse Rate 117 H 112 H 111 H Respiratory Rate 24 24 25 H Blood Pressure 120/59 L 105/60 105/58 L Pulse Oximetry 93 L 95 95 10/09/18 14:00 10/09/18 15:00 10/09/18 15:43 Temperature 101.2 F H Pulse Rate 109 H 108 H Respiratory Rate 25 H 25 H 24 Blood Pressure 113/64 107/65 Pulse Oximetry 95 95 94 L 10/09/18 16:00 10/09/18 19:13 10/09/18 20:00 Temperature 101.8 F H Pulse Rate 113 H 115 H 112 H Respiratory Rate 26 H 30 H 24 Blood Pressure 113/63 107/59 L Pulse Oximetry 95 96 96 10/09/18 23:00 10/10/18 00:00 10/10/18 00:15 Temperature 100.7 F H Pulse Rate 109 H 110 H Respiratory Rate 28 H 26 H 28 H Blood Pressure 106/62 Pulse Oximetry 95 97 10/10/18 03:15 10/10/18 04:00 10/10/18 04:05 Temperature 101.0 F H Pulse Rate 107 H 107 H Respiratory Rate 28 H 25 H 26 H Blood Pressure 115/58 L Pulse Oximetry 95 96 10/10/18 07:27 10/10/18 08:00 Temperature 99.7 F H Pulse Rate 104 H 108 H Respiratory Rate 24 25 H Blood Pressure 96/54 L Pulse Oximetry 96 95 Intake & Output 10/09/18 10/10/18 10/10/18 18:59 06:59 18:59 Intake Total 1319 / 1319 Output Total 575 / 575 775 / 775 Balance 1437.5 / 1437.5 544 / 544 Intake: IV 1200 / 1200 Diprivan 1000 mg/100 ml Inj 1, 200 / 200 100 / 100 000 mg In 100 ml @ 5 MCG/KG/MIN 2.955 mls/hr IV.CONT TITRATE PRN Rx#:[id number] 1/2 Normal Saline Inj 1,000 ML 1000 / 1000 1000 / 1000 @ 84 mls/hr IV.CONT .[id number] [facility] Rx#:[id number] Diflucan 400 mg Premix Bag 200 200 / 200 ML @ 100 mls/hr IV.SIG Q24H [facility] Rx#:[id number] KCl 20 mEq Premix Inj 20 meq In 100 / 100 100 / 100 100 ml @ 50 mls/hr IV.SIG Q2H [facility] Rx#:[id number] Vancomycin Inj 1,250 MG In NS 262.5 / 262.5 Inj 250 ML @ 250 mls/hr IV.SIG Q18H [facility] Rx#:[id number] fentaNYL 10 mcg/mL Premix Drip 250 / 250 2,500 mcg In 250 ml @ 50 MCG/HR 5 mls/hr IV.SIG TITRATE PRN Rx #:[id number] Tube Feeding 119 / 119 Output: Urine Amount (Catheter) 550 / 550 775 / 775 Straight 550 / 550 775 / 775 Gastric Drainage Orogastric Tube Other: # Incontinent Voids 2 Date of Last Bowel Movement 10/08/18 10/10/18 10/10/18 # Bowel Movements 0 1 10/08/18 06:45 Sputum - Endotracheal Gram Stain - Final 10/08/18 06:45 Sputum - Endotracheal Sputum Culture - Preliminary S. aureus MRSA 10/09/18 12:25 Blood - Peripheral Aerobic Blood Culture - Preliminary No growth in 1 day 10/09/18 12:25 Blood - Peripheral Anaerobic Blood Culture - Preliminary No growth in 1 day 10/09/18 12:20 Blood - Peripheral Aerobic Blood Culture - Preliminary No growth in 1 day 10/09/18 12:20 Blood - Peripheral Anaerobic Blood Culture - Preliminary No growth in 1 day 10/07/18 08:00 Blood - Peripheral Aerobic Blood Culture - Preliminary No growth in 3 days 10/07/18 08:00 Blood - Peripheral Anaerobic Blood Culture - Preliminary No growth in 3 days 10/07/18 08:05 Blood - Peripheral Aerobic Blood Culture - Preliminary No growth in 3 days 10/07/18 08:05 Blood - Peripheral Anaerobic Blood Culture - Preliminary No growth in 3 days 10/08/18 15:20 Lumbar Puncture Gram Stain - Final 10/08/18 15:20 Lumbar Puncture CSF Culture - Preliminary No growth in 48 hours 10/07/18 08:15 Nasal Wash Influenza Types A,B Antigen - Final Negative for FLU A and B antigen Infection due to influenza A or B cannot be ruled out since the antigen present in the sample may be below the detection limit of the test. Lab - Hematology Results 10/09/18 10/10/18 06:06 04:26 WBC 4.3 4.0 RBC 2.79 L 2.76 L Hgb 9.1 L 9.0 L Hct 26.8 L 26.8 L MCV 95.9 97.0 MCH 32.7 32.5 MCHC 34.0 33.5 RDW 16.4 16.1 Plt Count 54 L 52 L MPV 10.6 10.5 Prelim Diff (Auto) Slide review pending Slide review pending Neut % (Auto) 83.4 H 79.1 H Lymph % (Auto) 7.7 L 11.0 Phillips % (Auto) 7.0 6.8 Eos % (Auto) 1.6 2.4 Baso % (Auto) 0.3 0.7 Neut # (Auto) 3.6 3.1 Lymph # (Auto) 0.3 L 0.4 L Phillips # (Auto) 0.3 0.3 Eos # (Auto) 0.1 0.1 Baso # (Auto) 0.0 0.0 WBC Differential Manual diff final Manual diff final Seg Neuts % (Manual) 73 H 77 H Band Neuts % (Manual) 24 H 11 H Lymphocytes % (Manual) 3 L 4 L Monocytes % (Manual) 6 Eosinophils % (Manual) 2 Abs Neuts (Manual) 4.2 3.5 Differential Comment . . Toxic Granulation 1+ H Dohle Bodies Present H Platelet Estimate Low L Low L Platelet Morphology Normal Normal Lab - Chemistry Results 10/09/18 10/10/18 06:06 04:26 Sodium 150 H 150 H Potassium 3.4 L 3.7 Chloride 119 H 121 H Carbon Dioxide 21.3 21.1 Anion Gap 10 8 BUN 28 H 19 H Creatinine 1.17 1.10 Estimated GFR 66 L 71 L Random Glucose 84 75 Calcium 7.0 L* 7.1 L* Prot Corrected Calcium 7.5 L 7.5 L Phosphorus 2.1 L 2.1 L Magnesium 2.2 2.4 Total Bilirubin 0.5 0.7 AST 90 H 81 H ALT 25 24 Alkaline Phosphatase 38 L 51 Total Protein 6.1 L 6.3 L Albumin 1.9 L 1.7 L Imaging: ITS Impressions Head CT 10/07/18 07:55 CONCLUSION: 1. Negative CT Head non contrast. 2. Stable compared to recent study on 09/25/2018 . Chest X-Ray 10/07/18 23:11 CONCLUSION: 1. Endotracheal tube and nasogastric tube in place. 2. No other significant interval change with persistent bilateral pulmonary opacity. Head MRI 10/08/18 00:00 CONCLUSION: 1. Subcortical T2 hyperintensity in the left frontoparietal region has markedly decreased in size. Rapid resolution would be more indicative of an inflammatory or ischemic process. 2. No characteristic findings of acute infarct, hemorrhage or mass. Lumbar Puncture Fluoroscopy 10/08/18 00:00 CONCLUSION: 1. Uncomplicated fluoroscopically guided lumbar puncture. Physical Exam: PHYSICAL EXAMINATION: GENERAL: Patient intubated. HEENT: Head is atraumatic. Extraocular movements unable to fully assess currently. No icterus. NECK: Supple. No swelling or adenopathy. LUNGS: Bibasilar rhonchi. HEART: Regular S1 and S2 without murmurs. ABDOMEN: Decreased bowel sounds. Soft. EXTREMITIES: No clubbing, cyanosis or edema. SKIN: No diffuse skin rash. NEUROLOGIC: Unable to assess. PSYCHIATRIC: Unable to assess. Assessment and Plan - Plan IMPRESSION: 1. Seizure in patient with acquired immunodeficiency syndrome. 2. Altered mental status. ? etiology. 3. Acute encephalopathy. 4. Fever. 5. Possible sepsis. RECOMMENDATIONS: 1. Continue Diflucan. Monitor cryptococcal antigen in CSF. 2. Continue the prophylactic azithromycin for MAC. Discontinue Bactrim prophylaxis because he is receiving sulfadiazine. 3. Monitor CSF culture. 4. Add vancomycin. Pharmacy to monitor. 5. Follow blood cultures. 6. Continue antibiotic treatment for toxoplasma since his toxo IgG was positive. Continue pyrimethamine 75 mg p.o. daily plus sulfadiazine 1500 mg p.o. 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 Monitor CSF toxo titers. He does not have any lesions on MRI and therefore probably this is not toxoplasmosis. 7. Monitor temperature.
[2018-10-11] MEDS: Heparin - SQ 10,000 UNITS/ML Vial SQ SCH ×3 (02:24→18:35)
[2018-10-11] MEDS: Vancomycin Inj 1,250 MG in Sodium Chlor 0.9% Inj 250 ML IV.SIG SCH ×2 (02:29→20:13)
[2018-10-11] MEDS: SULFADIAZINE 500 MG PO SCH ×2 (02:29→08:47)
[2018-10-11] MEDS: Propofol 1000 mg/100 ml Inj 1,000 MG/100 ML BOTTLE IV.CONT PRN ×5 (02:51→22:35)
[2018-10-11] MEDS: Oral Hygiene Kit OROPHARYNG SCH ×3 (04:14→16:49)
[2018-10-11 06:33] LABS: Hematocrit 26.8 % (39.0-51.0); Hemoglobin 9.2 gm/dL (13.0-17.0); Mean Corpuscular HGB Conc 34.2 % (32.0-36.0); Mean Corpuscular Hemoglobin 32.8 pg (27.0-34.0); Mean Corpuscular Volume 95.9 fL (80.0-100.0); Platelet Count 47 th/mm3 (150-450); Red Blood Count 2.79 mil/mm3 (4.50-5.90); Red Cell Distribution Width 16.3 % (11.6-17.2); White Blood Count 3.3 th/mm3 (4.0-11.0)
[2018-10-11] MEDS: Acetaminophen 325 MG Tablet PO PRN (06:52)
[2018-10-11 07:14] LABS: Albumin 1.7 g/dL (3.4-5.0); Calcium 7.1 mg/dL (8.5-10.1); Carbon Dioxide 21.4 meq/L (21.0-32.0); Magnesium 2.2 mg/dL (1.5-2.5); Phosphorus 1.9 mg/dL (2.5-4.9); Potassium 3.7 meq/L (3.5-5.1); Total Protein 6.3 g/dL (6.4-8.2)
[2018-10-11] MEDS: Famotidine PF Inj 20 MG/2 ML Vial IV.PUSH SCH ×3 (08:43→20:14)
[2018-10-11] MEDS: Leucovorin 5 MG Tablet PO SCH (08:44)
[2018-10-11] MEDS: Famotidine 20 MG Tablet PO SCH ×2 (08:44→20:14)
[2018-10-11] MEDS: Topiramate 25 MG Tablet PO SCH ×2 (08:45→20:14)
[2018-10-11] MEDS: Senna/Docusate Sodium 8.6/50 MG Tablet PO SCH ×2 (08:45→20:14)
[2018-10-11 08:54] LABS: Eosinophils 1 % (0-4); Lymphocytes 3 % (9-44); Monocytes 5 % (0-8); Toxic Granulation 1+
[2018-10-11 08:55] LABS: Ovalocytes 1+; Tear Drop Cells 1+
[2018-10-11] MEDS: Chlorhexidine 0.12% Oral Kit 15 ML UDC OROPHARYNG SCH ×2 (10:24→20:14)
[2018-10-11] MEDS: Beneprotein Powder Packet G-TUBE SCH ×3 (10:24→17:10)
--- NOTE | 2018-10-11 11:02 | P.DIET ---
Nutritional Evaluation Type of nutrition evaluation: initial Nutrition consult regarding: Tube Feeding Screening comments: 10/11 TF diet review Subjective Subjective Comments: SCCM and ASPEN guidelines for critically ill patients Objective - Diagnosis severe sepsis, pneumonia, suspected meningitis - Objective Body Mass Index: 37.3 % IBW: 167 (IBW = 130lb) Body Weight Used for Calculations: IBW Energy Needs - Lower Range (kCal/kg): 22 Energy Needs - Upper Range (kCal/kg): 25 Lower Limit kCal/kg (kCals): 1,300 Upper Limit kCal/kg (kCals): 1,477 Lower Limit Protein Factor (Grams per Kg): 1.5 Upper Limit Protein Factor (Grams per Kg): 2.0 Lower Protein Needs (Protein): 89 Upper Protein Needs (Protein): 118 Dietitian Reviewed in Medical Record: Current diet, Curent medications, Intake & Output, Labs, Medical history, Tube feeding Diet Order: NPO, TF Objective Comments: PMH: AIDS, HIV, anxiety, bipolar, COPD, depression, hepatitis C, neuropathy, pneumocystosis pneumonia, PTSD, suicidal ideations Labs: Ca+ 7.1, Phos 1.9 Assessment Assessment: Pt currently intubated, sedated w/ fentanyl, propofol and on mech vent. Pt receiving Jevity 1.5 @ 35mL/hr continuous via NGT now per MD. YEH to recommend Vital High Protein @ 55mL/hr to provide 1320kcal, 116g of protein and 1104mL of free water. Additional kcal (1.1kcal/mL) is provided by propofol when running. Will continue to monitor TF tolerance. Dietitian following. Dietitian to Monitor: Lab values, Intake & Output, Tube feeding tolerance, Medical course
[2018-10-11] MEDS: Potassium Chlor 20 mEq Premix 20 MEQ/100 ML PIGGYBACK IV.SIG PRN ×2 (11:21→13:26)
--- NOTE | 2018-10-11 11:59 | P.PNID ---
Subjective Remarks: Patient is currently intubated and on the ventilator. On CPAP trial. No new events noted. Sedated. Nonresponsive. Fever. No significant secretions via the endotracheal tube. CSF culture has no growth. This is a 48-year-old white male who has AIDS. The patient was recently admitted to the hospital and treated for headaches. He received empiric antibiotic treatment. He refused a lumbar puncture and therefore, it was difficult to determine the cause of his headaches. MRI did not show any significant lesions. The patient presented to the emergency department with seizure. His IgM titer for toxoplasma was negative, but the IgG was positive. The patient's toxicology screen is positive for cocaine and cannabinoids. Past Medical History: PAST MEDICAL HISTORY: Depression, COPD, bipolar disorder, anxiety disorder, hepatitis C, neuropathy, HIV, posttraumatic stress disorder, history of MRSA. Allergies/Adverse Reactions: Allergies haloperidol Allergy (Severe, Verified 09/25/18 17:57) Swelling TONGUE SWELLING - Per pt. Objective Vital Signs 10/10/18 12:00 10/10/18 12:07 10/10/18 16:00 Temperature 99.4 F 102 F H Pulse Rate 104 H 109 H 121 H Respiratory Rate 22 25 H 24 Blood Pressure 108/58 L 146/72 H Pulse Oximetry 94 L 96 94 L 10/10/18 16:28 10/10/18 19:26 10/10/18 20:00 Temperature 99.8 F H Pulse Rate 122 H 110 H 111 H Respiratory Rate 30 H 27 H 26 H Blood Pressure 122/59 L Pulse Oximetry 93 L 94 L 90 L 10/10/18 22:15 10/10/18 23:22 10/11/18 00:00 Temperature 99.4 F Pulse Rate 103 H 105 H Respiratory Rate 26 H 25 H 27 H Blood Pressure 105/64 Pulse Oximetry 95 92 L 10/11/18 01:21 10/11/18 03:24 10/11/18 04:00 Temperature 101.4 F H Pulse Rate 103 H 110 H Respiratory Rate 25 H 27 H 24 Blood Pressure 114/57 L Pulse Oximetry 95 96 10/11/18 04:10 10/11/18 07:11 10/11/18 07:12 Temperature Pulse Rate 110 H Respiratory Rate 26 H 25 H 22 Blood Pressure Pulse Oximetry 96 94 L 10/11/18 08:00 10/11/18 11:33 Temperature 100.6 F H Pulse Rate 101 H 100 H Respiratory Rate 22 14 Blood Pressure 107/58 L Pulse Oximetry 96 96 Intake & Output 10/10/18 10/11/18 10/11/18 18:59 06:59 18:59 Intake Total 1520 / 1520 2390.0 / 2390.0 100 / 100 Output Total 1600 / 1600 475 / 475 Balance -80 / -80 1915.0 / 1915.0 100 / 100 Intake: IV 1100 / 1100 2175.0 / 2175.0 100 / 100 Diprivan 1000 mg/100 ml Inj 1, 100 / 100 200 / 200 100 / 100 000 mg In 100 ml @ 5 MCG/KG/MIN 2.955 mls/hr IV.CONT TITRATE PRN Rx#:[id number] 1/2 Normal Saline Inj 1,000 ML 1000 / 1000 1000 / 1000 @ 84 mls/hr IV.CONT .[id number] [facility] Rx#:[id number] Diflucan 400 mg Premix Bag 200 200 / 200 ML @ 100 mls/hr IV.SIG Q24H [facility] Rx#:[id number] Vancomycin Inj 1,250 MG In NS 525.0 / 525.0 Inj 250 ML @ 250 mls/hr IV.SIG Q18H [facility] Rx#:[id number] fentaNYL 10 mcg/mL Premix Drip 250 / 250 2,500 mcg In 250 ml @ 50 MCG/HR 5 mls/hr IV.SIG TITRATE PRN Rx #:[id number] Tube Feeding 420 / 420 215 / 215 Output: Urine Amount (Catheter) 1600 / 1600 475 / 475 Straight 1600 / 1600 475 / 475 Other: # Incontinent Voids 2 Date of Last Bowel Movement 10/10/18 10/11/18 10/11/18 # Bowel Movements 1 # Incontinent Bowel Movements 1 10/09/18 12:25 Blood - Peripheral Aerobic Blood Culture - Preliminary No growth in 2 days 10/09/18 12:25 Blood - Peripheral Anaerobic Blood Culture - Preliminary No growth in 2 days 10/09/18 12:20 Blood - Peripheral Aerobic Blood Culture - Preliminary No growth in 2 days 10/09/18 12:20 Blood - Peripheral Anaerobic Blood Culture - Preliminary No growth in 2 days 10/07/18 08:00 Blood - Peripheral Aerobic Blood Culture - Preliminary No growth in 4 days 10/07/18 08:00 Blood - Peripheral Anaerobic Blood Culture - Preliminary No growth in 4 days 10/07/18 08:05 Blood - Peripheral Aerobic Blood Culture - Preliminary No growth in 4 days 10/07/18 08:05 Blood - Peripheral Anaerobic Blood Culture - Preliminary No growth in 4 days 10/08/18 15:20 Lumbar Puncture Gram Stain - Final 10/08/18 15:20 Lumbar Puncture CSF Culture - Final No growth in 72 hours 10/08/18 06:45 Sputum - Endotracheal Gram Stain - Final 10/08/18 06:45 Sputum - Endotracheal Sputum Culture - Final S. aureus MRSA Lab - Hematology Results 10/10/18 10/11/18 04:26 04:54 WBC 4.0 3.3 L RBC 2.76 L 2.79 L Hgb 9.0 L 9.2 L Hct 26.8 L 26.8 L MCV 97.0 95.9 MCH 32.5 32.8 MCHC 33.5 34.2 RDW 16.1 16.3 Plt Count 52 L 47 L MPV 10.5 10.0 Prelim Diff (Auto) Slide review pending Manual diff required Neut % (Auto) 79.1 H Lymph % (Auto) 11.0 George % (Auto) 6.8 Eos % (Auto) 2.4 Baso % (Auto) 0.7 Neut # (Auto) 3.1 Lymph # (Auto) 0.4 L George # (Auto) 0.3 Eos # (Auto) 0.1 Baso # (Auto) 0.0 WBC Differential Manual diff final Manual diff final Seg Neuts % (Manual) 77 H 87 H Band Neuts % (Manual) 11 H 4 Lymphocytes % (Manual) 4 L 3 L Monocytes % (Manual) 6 5 Eosinophils % (Manual) 2 1 Abs Neuts (Manual) 3.5 3.0 Differential Comment . . Toxic Granulation 1+ H 1+ H Dohle Bodies Present H Platelet Estimate Low L Low L Platelet Morphology Normal Enlarged H Tear Drop Cells 1+ H Ovalocytes 1+ H Lab - Chemistry Results 10/10/18 10/11/18 04:26 04:54 Sodium 150 H 145 Potassium 3.7 3.7 Chloride 121 H 116 H Carbon Dioxide 21.1 21.4 Anion Gap 8 8 BUN 19 H 14 Creatinine 1.10 0.92 Estimated GFR 71 L 87 L Random Glucose 75 98 Calcium 7.1 L* 7.1 L* Prot Corrected Calcium 7.5 L 7.5 L Phosphorus 2.1 L 1.9 L Magnesium 2.4 2.2 Total Bilirubin 0.7 0.8 AST 81 H 133 H ALT 24 27 Alkaline Phosphatase 51 91 Total Protein 6.3 L 6.3 L Albumin 1.7 L 1.7 L Imaging: ITS Impressions Head CT 10/07/18 07:55 CONCLUSION: 1. Negative CT Head non contrast. 2. Stable compared to recent study on 09/25/2018 . Chest X-Ray 10/07/18 23:11 CONCLUSION: 1. Endotracheal tube and nasogastric tube in place. 2. No other significant interval change with persistent bilateral pulmonary opacity. Head MRI 10/08/18 00:00 CONCLUSION: 1. Subcortical T2 hyperintensity in the left frontoparietal region has markedly decreased in size. Rapid resolution would be more indicative of an inflammatory or ischemic process. 2. No characteristic findings of acute infarct, hemorrhage or mass. Lumbar Puncture Fluoroscopy 10/08/18 00:00 CONCLUSION: 1. Uncomplicated fluoroscopically guided lumbar puncture. Physical Exam: PHYSICAL EXAMINATION: GENERAL: Patient intubated. HEENT: Head is atraumatic. No icterus. NECK: Supple. No swelling or adenopathy. LUNGS: Bibasilar rhonchi. HEART: Regular S1 and S2 without murmurs. ABDOMEN: Decreased bowel sounds. Soft. EXTREMITIES: No clubbing, cyanosis or edema. SKIN: No diffuse skin rash. NEUROLOGIC: Unable to assess. PSYCHIATRIC: Unable to assess. Assessment and Plan - Plan IMPRESSION: 1. Seizure in patient with acquired immunodeficiency syndrome. 2. Altered mental status. ? etiology. 3. Acute encephalopathy. 4. Fever. ? drug fever vs infection. 5. Possible sepsis. RECOMMENDATIONS: 1. Continue Diflucan. Monitor cryptococcal antigen in CSF. 2. Continue the prophylactic azithromycin for MAC. 3. Monitor CSF culture. 4. Continue vancomycin. Pharmacy to monitor. 5. Follow blood cultures. 6. Hold pyrimethamine, sulfadiazine and leucovorin He does not have any lesions on MRI and therefore probably this is not toxoplasmosis. ? drug fever related to these meds. 7. Monitor temperature.
[2018-10-11] MEDS: FLUCONAZOLE 200 MG IV.SIG SCH (12:36)
[2018-10-11] MEDS: Sodium Chloride 0.45 % Inj 1,000 ML IV.CONT SCH (12:37)
--- NOTE | 2018-10-11 13:18 | XR ---
EXAM DATE: 10/11/2018 1:16 PM EST AGE/SEX: 48 years / Male INDICATIONS: Respiratory failure. CLINICAL DATA: This is the patient's subsequent encounter. Patient reports that signs and symptoms h ave been present for 4 - 6 days and indicates a pain score of Nonresponsive. MEDICAL/SURGICAL HISTORY: Non-responsive. Non-responsive. COMPARISON: [facility], CHEST 1V SINGLE AP, 10/07/2018. . FINDINGS: Endotracheal tube tip is stable several centimeters above the floridalma. Nasogastric tube descends to th e stomach. Bilateral perihilar and basilar infiltrates are grossly stable. Accounting for rotation, t he cardiac contours are probably stable. CONCLUSION: No significant change Electronically signed by: Zheng Bernstein MD 10/11/2018 1:17 PM EST
--- NOTE | 2018-10-11 13:32 | P.PNCC ---
Subjective Subjective Remarks/Hospital Course: 48yM with history of HIV and CD4+ count <20 presenting with seizure and fever. The patient was admitted from 09/26-10/05/18 for fever and headache, had an initial attempt at LP performed in the ED but was unsuccessful and subsequently declined any further attempts. He had blood cultures which were negative at 5 days and positive toxoplasma IgG, treated empirically with IV fluconazole and discharged home with PO fluconazole and prophylactic azithromycin and bactrim. The patient is chronic non-compliant with his HIV medications and was reportedly not taking his discharge meds. Today, he was at home and had a 2 minute seizure witnessed by his sister Beata. He was brought to the ED via EMS and had a temp of 101F and heart rate of 150. He was given a dose of vanco, ceftazidime, and acyclovir along with 3L NS bolus. He had a head CT which was unchanged from his previous visit. On my evaluation, the patient is encephalopathic and oriented to name only. He is unable to provide any further meaningful details to HPI. I spoke with the patient's sister Beata, who says that the patient is frequent non-compliant with his medications, reportedly took "a whole bottle of percocet" two days ago (just after discharge), and "hasn't been in his right mind since then. He can't finish a sentence and has been urinating himself". 10/08: Patient intubated overnight for continued respiratory distress/ hypoxia. Currently sedated and intubated. 10/09: Patient growing MRSA in sputum culture, febrile to 103F, CSF shows no organisms on gram stain and cultures pending. 10/10: Remains intubated heavily sedated. Remains on suspected toxoplasmosis treatment with vitamin Timentin sulfadiazine and leucovorin. CSF cultures remains negative. 10/11: Remains intubated and sedated. Failed CPAP trial yesterday due to severe tachypnea. Treatment for toxoplasmosis currently held by ID as it is known least high. CSF cultures remains negative. Start diuresis with IV Lasix , start Precedex to facilitate weaning Objective Vital Signs / I&O: Vital Signs 10/10/18 16:00 10/10/18 16:28 10/10/18 19:26 Temperature 102 F H Pulse Rate 121 H 122 H 110 H Respiratory Rate 24 30 H 27 H Blood Pressure 146/72 H Pulse Oximetry 94 L 93 L 94 L 10/10/18 20:00 10/10/18 22:15 10/10/18 23:22 Temperature 99.8 F H Pulse Rate 111 H 103 H Respiratory Rate 26 H 26 H 25 H Blood Pressure 122/59 L Pulse Oximetry 90 L 95 10/11/18 00:00 10/11/18 01:21 10/11/18 03:24 Temperature 99.4 F Pulse Rate 105 H 103 H Respiratory Rate 27 H 25 H 27 H Blood Pressure 105/64 Pulse Oximetry 92 L 95 10/11/18 04:00 10/11/18 04:10 10/11/18 07:11 Temperature 101.4 F H Pulse Rate 110 H 110 H Respiratory Rate 24 26 H 25 H Blood Pressure 114/57 L Pulse Oximetry 96 96 10/11/18 07:12 10/11/18 08:00 10/11/18 11:33 Temperature 100.6 F H Pulse Rate 101 H 100 H Respiratory Rate 22 22 14 Blood Pressure 107/58 L Pulse Oximetry 94 L 96 96 Intake & Output 10/10/18 10/11/18 10/11/18 18:59 06:59 18:59 Intake Total 1520 / 1520 2390.0 / 2390.0 1200 / 1200 Output Total 1600 / 1600 475 / 475 Balance -80 / -80 1915.0 / 1915.0 1200 / 1200 Intake: IV 1100 / 1100 2175.0 / 2175.0 1200 / 1200 Diprivan 1000 mg/100 ml Inj 1, 100 / 100 200 / 200 100 / 100 000 mg In 100 ml @ 5 MCG/KG/MIN 2.955 mls/hr IV.CONT TITRATE PRN Rx#:[id number] 1/2 Normal Saline Inj 1,000 ML 1000 / 1000 1000 / 1000 1000 / 1000 @ 84 mls/hr IV.CONT .[id number] [facility] Rx#:[id number] Diflucan 400 mg Premix Bag 200 200 / 200 ML @ 100 mls/hr IV.SIG Q24H [facility] Rx#:[id number] KCl 20 mEq Premix Inj 20 meq In 100 / 100 100 ml @ 50 mls/hr IV.SIG Q2H PRN Rx#:[id number] Vancomycin Inj 1,250 MG In NS 525.0 / 525.0 Inj 250 ML @ 250 mls/hr IV.SIG Q18H [facility] Rx#:[id number] fentaNYL 10 mcg/mL Premix Drip 250 / 250 2,500 mcg In 250 ml @ 50 MCG/HR 5 mls/hr IV.SIG TITRATE PRN Rx #:[id number] Tube Feeding 420 / 420 215 / 215 Output: Urine Amount (Catheter) 1600 / 1600 475 / 475 Straight 1600 / 1600 475 / 475 Other: # Incontinent Voids 2 Date of Last Bowel Movement 10/10/18 10/11/18 10/11/18 # Bowel Movements 1 # Incontinent Bowel Movements 1 Result Diagrams: 10/11/18 04:54 10/11/18 04:54 Objective Remarks: GEN: Ill-appearing, intubated and sedated HEENT: NCAT, ETT and OGT present NECK: No JVD, trachea midline CARDIO: S1-S2 normal no murmurs PULM: Mechanical breath sounds bilaterally. Few coarse rhonchi bilaterally ABD/GI: Soft, non-tender, mildly distended, easily reducible umbilical hernia EXT/MSK: No peripheral edema SKIN: Flushed, mildly diaphoretic NEURO: RASS 0 to -1. Heavily sedated for vent synchrony. 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 Rapid resolution more indicative of an inflammatory or ischemic process. Currently nourished lesion suggestive of toxoplasmosis. Treatment for toxo held for now -Antifungals as below CARDIO: -BP stable overnight -Echo performed on 05/02/18, showed EF 55-60%, mild TR, no vegetations PULM: -Spontaneous breathing trials daily, failing due to tachypnea respiratory distress. Mental status will not permit extubation -Vent bundle -Nebs F/E/N: -DC 1/2 NS @ 84 mL/hr, sodium 145, continue free water flushes -Monitor Is and Os -Electrolyte replacement protocol -Start IV Lasix 40 mg daily RENAL: -MIGUEL ANGEL, creat stable -Straight cath PRN -IV Lasix 40 mg daily ID: -ID following (Dr. Toribio) * CSF negative thus far * Sputum culture (+) for MRSA -Continue diflucan, vancomycin, prophylactic azithromycin -Holding pyrimethamine, sulfadiazine, leucovorin, per ID as MRI brain did not show any lesions suggestive of toxoplasmosis PROPHY: -SCDs, SQH -PPI Overall: This patient is critically ill and at very high risk for deterioration. He requires continued ICU level of care. Level 3 follow up To help prompt me to consider important information that might be impacting today's encounter and assessment, information from prior notes written by myself or my colleagues may have been "brought forward" into today's note. My signature on this note, however, is an attestation that I personally performed the exam, history, and/or decision-making noted today, and, unless otherwise indicated, the interactions with patient, family, and staff as well as the review of records all occurred today. I also attest that the listed assessment and stated plan reflect my best clinical judgment today based on the combination of historical information, prior notes, and today's exam/ interactions.
[2018-10-11] MEDS: Dexmedetomidine Inj 200 MCG in Sodium Chlor 0.9% Inj 48 ML IV.CONT PRN ×2 (15:53→20:30)
[2018-10-11] MEDS: fentaNYL 10 mcg/mL Premix Drip 2,500 MCG/250 ML BAG IV.SIG PRN (17:11)
[2018-10-11] MEDS ORDERED: Pharmacy Ordered Lab Info OTHER ONE (19:45)
[2018-10-11 20:31] LABS: Vancomycin,Trough 9.7 mcg/mL (5.0-10.0)
[2018-10-12] MEDS: Oral Hygiene Kit OROPHARYNG SCH ×4 (00:21→15:52)
[2018-10-12] MEDS: Acetaminophen 325 MG Tablet PO PRN ×2 (00:28→21:16)
[2018-10-12] MEDS: Propofol 1000 mg/100 ml Inj 1,000 MG/100 ML BOTTLE IV.CONT PRN ×5 (01:28→20:50)
[2018-10-12] MEDS: Dexmedetomidine Inj 200 MCG in Sodium Chlor 0.9% Inj 48 ML IV.CONT PRN ×7 (01:57→20:55)
[2018-10-12] MEDS: Heparin - SQ 10,000 UNITS/ML Vial SQ SCH ×3 (03:21→18:20)
[2018-10-12 05:24] LABS: Baso % (Auto) 0.7 % (0.0-2.0); Eos # (Auto) 0.1 th/mm3 (0.0-0.4); Eos % (Auto) 2.6 % (0.0-4.0); Hematocrit 24.7 % (39.0-51.0); Hemoglobin 8.6 gm/dL (13.0-17.0); Lymph # (Auto) 0.3 th/mm3 (1.0-4.8); Lymph % (Auto) 10.4 % (9.0-44.0); Mean Corpuscular HGB Conc 34.7 % (32.0-36.0); Mean Corpuscular Hemoglobin 32.8 pg (27.0-34.0); Mean Corpuscular Volume 94.5 fL (80.0-100.0); Mean Platelet Volume 10.4 fL (7.0-11.0); Mono # (Auto) 0.3 th/mm3 (0.0-0.9); Mono % (Auto) 9.5 % (0.0-8.0); Neut # (Auto) 2.3 th/mm3 (1.8-7.7); Neut % (Auto) 76.8 % (16.0-70.0); Platelet Count 43 th/mm3 (150-450); Red Blood Count 2.61 mil/mm3 (4.50-5.90)
[2018-10-12 05:38] LABS: Albumin 1.5 g/dL (3.4-5.0); Calcium 7.3 mg/dL (8.5-10.1); Carbon Dioxide 20.6 meq/L (21.0-32.0); Magnesium 2.3 mg/dL (1.5-2.5); Phosphorus 2.7 mg/dL (2.5-4.9); Total Protein 6.3 g/dL (6.4-8.2)
[2018-10-12] MEDS: Chlorhexidine 0.12% Oral Kit 15 ML UDC OROPHARYNG SCH ×2 (07:45→20:56)
[2018-10-12] MEDS: Vancomycin Inj 1,350 MG in Sodium Chlor 0.9% Inj 500 ML IV.SIG SCH ×2 (07:46→20:51)
[2018-10-12 08:32] LABS: Eosinophils 1 % (0-4); Lymphocytes 8 % (9-44); Monocytes 7 % (0-8)
[2018-10-12 08:33] LABS: Ovalocytes 1+; Platelet Morphology Normal (Normal); Tear Drop Cells 1+; Toxic Granulation 1+
[2018-10-12] MEDS: Beneprotein Powder Packet G-TUBE SCH ×3 (09:14→18:35)
[2018-10-12] MEDS: Topiramate 25 MG Tablet PO SCH ×2 (09:14→20:56)
[2018-10-12] MEDS: Senna/Docusate Sodium 8.6/50 MG Tablet PO SCH ×2 (09:14→20:56)
[2018-10-12] MEDS: Famotidine 20 MG Tablet PO SCH ×2 (09:14→20:56)
[2018-10-12] MEDS: Famotidine PF Inj 20 MG/2 ML Vial IV.PUSH SCH ×2 (09:14→20:55)
[2018-10-12] MEDS: FLUCONAZOLE 200 MG IV.SIG SCH (11:20)
--- NOTE | 2018-10-12 12:08 | P.PNCC ---
Subjective Subjective Remarks/Hospital Course: 48yM with history of HIV and CD4+ count <20 presenting with seizure and fever. The patient was admitted from 09/26-10/05/18 for fever and headache, had an initial attempt at LP performed in the ED but was unsuccessful and subsequently declined any further attempts. He had blood cultures which were negative at 5 days and positive toxoplasma IgG, treated empirically with IV fluconazole and discharged home with PO fluconazole and prophylactic azithromycin and bactrim. The patient is chronic non-compliant with his HIV medications and was reportedly not taking his discharge meds. Today, he was at home and had a 2 minute seizure witnessed by his sister Beata. He was brought to the ED via EMS and had a temp of 101F and heart rate of 150. He was given a dose of vanco, ceftazidime, and acyclovir along with 3L NS bolus. He had a head CT which was unchanged from his previous visit. On my evaluation, the patient is encephalopathic and oriented to name only. He is unable to provide any further meaningful details to HPI. I spoke with the patient's sister Beata, who says that the patient is frequent non-compliant with his medications, reportedly took "a whole bottle of percocet" two days ago (just after discharge), and "hasn't been in his right mind since then. He can't finish a sentence and has been urinating himself". 10/08: Patient intubated overnight for continued respiratory distress/ hypoxia. Currently sedated and intubated. 10/09: Patient growing MRSA in sputum culture, febrile to 103F, CSF shows no organisms on gram stain and cultures pending. 10/10: Remains intubated heavily sedated. Remains on suspected toxoplasmosis treatment with vitamin Timentin sulfadiazine and leucovorin. CSF cultures remains negative. 10/11: Remains intubated and sedated. Failed CPAP trial yesterday due to severe tachypnea. Treatment for toxoplasmosis currently held by ID as it is known least high. CSF cultures remains negative. Start diuresis with IV Lasix , start Precedex to facilitate weaning 10/12: Attempt is being made to transition from propofol to Precedex to facilitate vent weaning but patient not tolerating becomes very tachypneic and anxious. Restarted back on propofol. We will start scheduled Ativan to facilitate weaning propofol. Objective Vital Signs / I&O: Vital Signs 10/11/18 12:30 10/11/18 13:00 10/11/18 13:30 Temperature Pulse Rate 100 H 101 H 101 H Respiratory Rate 16 19 17 Blood Pressure 106/56 L 108/59 L 106/61 Pulse Oximetry 95 96 96 10/11/18 14:00 10/11/18 14:01 10/11/18 14:30 Temperature Pulse Rate 107 H 108 H 104 H Respiratory Rate 30 H 25 H 21 Blood Pressure 133/72 119/64 Pulse Oximetry 91 L 92 L 94 L 10/11/18 15:00 10/11/18 15:30 10/11/18 16:00 Temperature 100 F H Pulse Rate 104 H 104 H 104 H Respiratory Rate 21 21 24 Blood Pressure 112/59 L 114/58 L 117/69 Pulse Oximetry 94 L 94 L 94 L 10/11/18 16:10 10/11/18 16:30 10/11/18 17:00 Temperature Pulse Rate 105 H 106 H Respiratory Rate 29 H 27 H 27 H Blood Pressure 122/72 120/68 Pulse Oximetry 93 L 94 L 93 L 10/11/18 17:30 10/11/18 18:00 10/11/18 18:30 Temperature Pulse Rate 101 H 97 H 96 H Respiratory Rate 27 H 25 H 28 H Blood Pressure 113/56 L 98/56 L 110/52 L Pulse Oximetry 95 95 95 10/11/18 19:00 10/11/18 19:23 10/11/18 19:40 Temperature Pulse Rate 94 H 94 H Respiratory Rate 27 H 28 H 27 H Blood Pressure 112/54 L 103/52 L Pulse Oximetry 95 94 L 10/11/18 20:00 10/11/18 20:30 10/11/18 20:54 Temperature 100.5 F H Pulse Rate 94 H 94 H Respiratory Rate 28 H 28 H 28 H Blood Pressure 101/53 L 104/50 L Pulse Oximetry 94 L 95 97 10/11/18 21:00 10/11/18 21:30 10/11/18 22:00 Temperature Pulse Rate 93 H 94 H 96 H Respiratory Rate 30 H 29 H 30 H Blood Pressure 108/58 L 100/59 L 106/56 L Pulse Oximetry 96 94 L 93 L 10/11/18 22:30 10/11/18 23:00 10/11/18 23:30 Temperature Pulse Rate 95 H 95 H 96 H Respiratory Rate 29 H 30 H 32 H Blood Pressure 102/55 L 94/61 L 90/53 L Pulse Oximetry 94 L 93 L 92 L 10/11/18 23:47 10/11/18 23:54 10/12/18 00:00 Temperature 101.5 F H Pulse Rate 173 H 173 H Respiratory Rate 35 H 36 H 36 H Blood Pressure 93/68 L 101/75 Pulse Oximetry 93 L 93 L 93 L 10/12/18 00:05 10/12/18 00:10 10/12/18 00:19 Temperature Pulse Rate 170 H 174 H 174 H Respiratory Rate 36 H 36 H 36 H Blood Pressure 104/72 99/66 L 115/61 Pulse Oximetry 95 94 L 94 L 10/12/18 00:21 10/12/18 00:26 10/12/18 00:30 Temperature Pulse Rate 104 H 102 H 105 H Respiratory Rate 37 H 36 H 38 H Blood Pressure 97/52 L 95/55 L 98/59 L Pulse Oximetry 93 L 93 L 94 L 10/12/18 00:35 10/12/18 00:40 10/12/18 00:47 Temperature Pulse Rate 104 H 103 H 104 H Respiratory Rate 35 H 36 H 36 H Blood Pressure 89/59 L 88/63 L 92/55 L Pulse Oximetry 94 L 94 L 94 L 10/12/18 00:50 10/12/18 00:55 10/12/18 01:00 Temperature Pulse Rate 104 H 103 H 102 H Respiratory Rate 35 H 35 H 35 H Blood Pressure 90/55 L 92/55 L 96/50 L Pulse Oximetry 94 L 95 95 10/12/18 01:05 10/12/18 01:17 10/12/18 01:30 Temperature Pulse Rate 102 H 103 H 101 H Respiratory Rate 35 H 35 H 34 H Blood Pressure 86/50 L 100/56 L 98/55 L Pulse Oximetry 95 94 L 95 10/12/18 02:00 10/12/18 02:30 10/12/18 03:00 Temperature Pulse Rate 101 H 99 H 99 H Respiratory Rate 34 H 34 H 36 H Blood Pressure 95/50 L 92/52 L 107/59 L Pulse Oximetry 95 95 95 10/12/18 03:30 10/12/18 03:33 10/12/18 04:00 Temperature 100.9 F H Pulse Rate 95 H 95 H 95 H Respiratory Rate 33 H 33 H 32 H Blood Pressure 102/57 L 100/56 L Pulse Oximetry 98 98 97 10/12/18 04:30 10/12/18 05:00 10/12/18 05:30 Temperature Pulse Rate 94 H 92 H 92 H Respiratory Rate 33 H 31 H 32 H Blood Pressure 100/57 L 98/58 L 101/58 L Pulse Oximetry 98 98 98 10/12/18 06:00 10/12/18 06:30 10/12/18 07:00 Temperature Pulse Rate 91 H 91 H 94 H Respiratory Rate 33 H 32 H 31 H Blood Pressure 103/58 L 101/57 L 107/61 Pulse Oximetry 98 99 96 10/12/18 07:30 10/12/18 07:31 10/12/18 08:00 Temperature 99.9 F H Pulse Rate 98 H 94 H Respiratory Rate 37 H 31 H 29 H Blood Pressure 113/77 107/62 Pulse Oximetry 98 97 96 10/12/18 08:30 10/12/18 09:00 10/12/18 11:28 Temperature Pulse Rate 110 H 112 H Respiratory Rate 40 H 40 H 27 H Blood Pressure 137/77 145/87 H Pulse Oximetry 96 92 L 95 Intake & Output 10/11/18 10/12/18 10/12/18 18:59 06:59 18:59 Intake Total 2193 / 2193 1807.5 / 1807.5 813.5 / 813.5 Output Total 1600 / 1600 850 / 850 Balance 593 / 593 957.5 / 957.5 813.5 / 813.5 Intake: IV 1750 / 1750 1412.5 / 1412.5 813.5 / 813.5 Precedex Inj 200 MCG In NS Inj 100 / 100 100 / 100 48 ML @ 0.2 MCG/KG/HR 4.92 mls/ hr IV.CONT TITRATE PRN Rx#: [id number] Diprivan 1000 mg/100 ml Inj 1, 200 / 200 200 / 200 100 / 100 000 mg In 100 ml @ 5 MCG/KG/MIN 2.955 mls/hr IV.CONT TITRATE PRN Rx#:[id number] 1/2 Normal Saline Inj 1,000 ML 1000 / 1000 @ 84 mls/hr IV.CONT .[id number] [facility] Rx#:[id number] Diflucan 200 mg Premix Bag 200 200 / 200 ML @ 100 mls/hr IV.SIG Q24H [facility] Rx#:[id number] KCl 20 mEq Premix Inj 20 meq In 100 / 100 100 / 100 100 ml @ 50 mls/hr IV.SIG Q2H [facility] Rx#:[id number] Vancomycin Inj 1,250 MG In NS 262.5 / 262.5 Inj 250 ML @ 250 mls/hr IV.SIG Q18H [facility] Rx#:[id number] Vancomycin Inj 1,350 MG In NS 513.5 / 513.5 Inj 500 ML @ 250 mls/hr IV.SIG Q12H [facility] Rx#:[id number] fentaNYL 10 mcg/mL Premix Drip 250 / 250 2,500 mcg In 250 ml @ 50 MCG/HR 5 mls/hr IV.SIG TITRATE PRN Rx #:[id number] Tube Feeding 443 / 443 335 / 335 Tube Irrigant 60 / 60 Output: Urine Amount (Catheter) 1600 / 1600 850 / 850 Straight 1600 / 1600 850 / 850 Other: Date of Last Bowel Movement 10/11/18 10/11/18 10/11/18 Result Diagrams: 10/12/18 05:09 10/12/18 05:09 Objective Remarks: GEN: Ill-appearing, intubated and sedated HEENT: NCAT, ETT and OGT present NECK: No JVD, trachea midline CARDIO: S1-S2 normal no murmurs PULM: Mechanical breath sounds bilaterally. Few coarse rhonchi bilaterally. On lightening sedation becomes very tachypneic ABD/GI: Soft, non-tender, mildly distended, easily reducible umbilical hernia EXT/MSK: No peripheral edema SKIN: Flushed, mildly diaphoretic NEURO: RASS -2. Heavily sedated for vent synchrony. Slightly moves extremities to pain. Intermittently follows on left lower extremity Assessment and Plan - Assessment and Plan Plan: 48yM with history of HIV/AIDS, recently admitted for presumed fungal meningitis/ [employer] toxoplasmosis, reported medication non-compliance and substance abuse, presenting with seizure, fever/ sepsis, and encephalopathy NEURO: -Seizure precautions -Neurology following, no seizure activity seen on EEG -CSF analysis- no organisms seen, 6 WBCs/ 4 RBCs/ clear, opening pressure 23, no growth -Continue home dose of Topamax -MRI brain with contrast 10/08 Subcortical T2 hyperintensity in the left frontoparietal region has markedly decreased in size. Rapid resolution more indicative of an inflammatory or ischemic process. Currently no lesion suggestive of toxoplasmosis. Treatment for toxo held for now -Antifungals as below CARDIO: -BP stable -Echo performed on 05/02/18, showed EF 55-60%, mild TR, no vegetations PULM: -Spontaneous breathing trials daily, failing due to tachypnea respiratory distress. Mental status will not permit extubation -Vent bundle -Nebs -Vent day 6 F/E/N: -DC 1/2 NS @ 84 mL/hr, sodium 145, continue free water flushes -Monitor Is and Os -Electrolyte replacement protocol -IV Lasix 40 mg daily due to positive fluid balance RENAL: -MIGUEL ANGEL, creat stable -Straight cath PRN -IV Lasix 40 mg daily ID: -ID following (Dr. Toribio) * CSF negative thus far * Sputum culture (+) for MRSA -Continue diflucan, vancomycin, prophylactic azithromycin -Holding pyrimethamine, sulfadiazine, leucovorin, per ID as MRI brain did not show any lesions suggestive of toxoplasmosis PROPHY: -SCDs, SQH -PPI Overall: This patient is critically ill and at very high risk for deterioration. He requires continued ICU level of care. Level 3 follow up To help prompt me to consider important information that might be impacting today's encounter and assessment, information from prior notes written by myself or my colleagues may have been "brought forward" into today's note. My signature on this note, however, is an attestation that I personally performed the exam, history, and/or decision-making noted today, and, unless otherwise indicated, the interactions with patient, family, and staff as well as the review of records all occurred today. I also attest that the listed assessment and stated plan reflect my best clinical judgment today based on the combination of historical information, prior notes, and today's exam/ interactions.
[2018-10-12] MEDS: fentaNYL 10 mcg/mL Premix Drip 2,500 MCG/250 ML BAG IV.SIG PRN (12:32)
--- NOTE | 2018-10-12 13:49 | ECG ---
Date Performed: 10/12/2018 Time Performed: 00:11:12 PTAGE: 48 years EKG: Probable supraventricular tachycardia Left axis deviation Abnormal ECG Since PREVIOUS TRACING , no significant change noted PREVIOUS TRACIN10/07/2018 08.01 DOCTOR: Kieran Swenson Interpretating Date/Time 10/12/2018 13:46:27
--- NOTE | 2018-10-12 15:52 | P.PNID ---
Subjective Remarks: Patient is currently intubated and on the ventilator. Not able to wean off the ventilator. Sedated. Nonresponsive. Has low-grade fever. No significant secretions via the endotracheal tube. CSF culture has no growth. CSF studies pending. This is a 48-year-old white male who has AIDS. The patient was recently admitted to the hospital and treated for headaches. He received empiric antibiotic treatment. He refused a lumbar puncture and therefore, it was difficult to determine the cause of his headaches. MRI did not show any significant lesions. The patient presented to the emergency department with seizure. His IgM titer for toxoplasma was negative, but the IgG was positive. The patient's toxicology screen is positive for cocaine and cannabinoids. Past Medical History: PAST MEDICAL HISTORY: Depression, COPD, bipolar disorder, anxiety disorder, hepatitis C, neuropathy, HIV, posttraumatic stress disorder, history of MRSA. Allergies/Adverse Reactions: Allergies haloperidol Allergy (Severe, Verified 09/25/18 17:57) Swelling TONGUE SWELLING - Per pt. Objective Vital Signs 10/11/18 16:00 10/11/18 16:10 10/11/18 16:30 Temperature 100 F H Pulse Rate 104 H 105 H Respiratory Rate 24 29 H 27 H Blood Pressure 117/69 122/72 Pulse Oximetry 94 L 93 L 94 L 10/11/18 17:00 10/11/18 17:30 10/11/18 18:00 Temperature Pulse Rate 106 H 101 H 97 H Respiratory Rate 27 H 27 H 25 H Blood Pressure 120/68 113/56 L 98/56 L Pulse Oximetry 93 L 95 95 10/11/18 18:30 10/11/18 19:00 10/11/18 19:23 Temperature Pulse Rate 96 H 94 H Respiratory Rate 28 H 27 H 28 H Blood Pressure 110/52 L 112/54 L Pulse Oximetry 95 95 10/11/18 19:40 10/11/18 20:00 10/11/18 20:30 Temperature 100.5 F H Pulse Rate 94 H 94 H 94 H Respiratory Rate 27 H 28 H 28 H Blood Pressure 103/52 L 101/53 L 104/50 L Pulse Oximetry 94 L 94 L 95 10/11/18 20:54 10/11/18 21:00 10/11/18 21:30 Temperature Pulse Rate 93 H 94 H Respiratory Rate 28 H 30 H 29 H Blood Pressure 108/58 L 100/59 L Pulse Oximetry 97 96 94 L 10/11/18 22:00 10/11/18 22:30 10/11/18 23:00 Temperature Pulse Rate 96 H 95 H 95 H Respiratory Rate 30 H 29 H 30 H Blood Pressure 106/56 L 102/55 L 94/61 L Pulse Oximetry 93 L 94 L 93 L 10/11/18 23:30 10/11/18 23:47 10/11/18 23:54 Temperature Pulse Rate 96 H 173 H Respiratory Rate 32 H 35 H 36 H Blood Pressure 90/53 L 93/68 L Pulse Oximetry 92 L 93 L 93 L 10/12/18 00:00 10/12/18 00:05 10/12/18 00:10 Temperature 101.5 F H Pulse Rate 173 H 170 H 174 H Respiratory Rate 36 H 36 H 36 H Blood Pressure 101/75 104/72 99/66 L Pulse Oximetry 93 L 95 94 L 10/12/18 00:19 10/12/18 00:21 10/12/18 00:26 Temperature Pulse Rate 174 H 104 H 102 H Respiratory Rate 36 H 37 H 36 H Blood Pressure 115/61 97/52 L 95/55 L Pulse Oximetry 94 L 93 L 93 L 10/12/18 00:30 10/12/18 00:35 10/12/18 00:40 Temperature Pulse Rate 105 H 104 H 103 H Respiratory Rate 38 H 35 H 36 H Blood Pressure 98/59 L 89/59 L 88/63 L Pulse Oximetry 94 L 94 L 94 L 10/12/18 00:47 10/12/18 00:50 10/12/18 00:55 Temperature Pulse Rate 104 H 104 H 103 H Respiratory Rate 36 H 35 H 35 H Blood Pressure 92/55 L 90/55 L 92/55 L Pulse Oximetry 94 L 94 L 95 10/12/18 01:00 10/12/18 01:05 10/12/18 01:17 Temperature Pulse Rate 102 H 102 H 103 H Respiratory Rate 35 H 35 H 35 H Blood Pressure 96/50 L 86/50 L 100/56 L Pulse Oximetry 95 95 94 L 10/12/18 01:30 10/12/18 02:00 10/12/18 02:30 Temperature Pulse Rate 101 H 101 H 99 H Respiratory Rate 34 H 34 H 34 H Blood Pressure 98/55 L 95/50 L 92/52 L Pulse Oximetry 95 95 95 10/12/18 03:00 10/12/18 03:30 10/12/18 03:33 Temperature Pulse Rate 99 H 95 H 95 H Respiratory Rate 36 H 33 H 33 H Blood Pressure 107/59 L 102/57 L Pulse Oximetry 95 98 98 10/12/18 04:00 10/12/18 04:30 10/12/18 05:00 Temperature 100.9 F H Pulse Rate 95 H 94 H 92 H Respiratory Rate 32 H 33 H 31 H Blood Pressure 100/56 L 100/57 L 98/58 L Pulse Oximetry 97 98 98 10/12/18 05:30 10/12/18 06:00 10/12/18 06:30 Temperature Pulse Rate 92 H 91 H 91 H Respiratory Rate 32 H 33 H 32 H Blood Pressure 101/58 L 103/58 L 101/57 L Pulse Oximetry 98 98 99 10/12/18 07:00 10/12/18 07:30 10/12/18 07:31 Temperature Pulse Rate 94 H 98 H Respiratory Rate 31 H 37 H 31 H Blood Pressure 107/61 113/77 Pulse Oximetry 96 98 97 10/12/18 08:00 10/12/18 08:30 10/12/18 09:00 Temperature 99.9 F H Pulse Rate 94 H 110 H 112 H Respiratory Rate 29 H 40 H 40 H Blood Pressure 107/62 137/77 145/87 H Pulse Oximetry 96 96 92 L 10/12/18 09:30 10/12/18 10:00 10/12/18 10:30 Temperature Pulse Rate 108 H 93 H 87 Respiratory Rate 35 H 32 H 29 H Blood Pressure 129/74 109/55 L 97/53 L Pulse Oximetry 94 L 94 L 96 10/12/18 11:00 10/12/18 11:28 10/12/18 11:30 Temperature Pulse Rate 86 85 Respiratory Rate 27 H 27 H 28 H Blood Pressure 100/59 L 102/60 Pulse Oximetry 96 95 95 10/12/18 12:00 10/12/18 12:30 Temperature 99.6 F Pulse Rate 85 85 Respiratory Rate 14 9 L Blood Pressure 100/62 102/62 Pulse Oximetry 94 L 94 L Intake & Output 10/11/18 10/12/18 10/12/18 18:59 06:59 18:59 Intake Total 2193 / 2193 1807.5 / 1807.5 1463.5 / 1463.5 Output Total 1600 / 1600 850 / 850 Balance 593 / 593 957.5 / 957.5 1463.5 / 1463.5 Intake: IV 1750 / 1750 1412.5 / 1412.5 1463.5 / 1463.5 Precedex Inj 200 MCG In NS Inj 100 / 100 200 / 200 48 ML @ 0.2 MCG/KG/HR 4.92 mls/ hr IV.CONT TITRATE PRN Rx#: [id number] Diprivan 1000 mg/100 ml Inj 1, 200 / 200 200 / 200 200 / 200 000 mg In 100 ml @ 5 MCG/KG/MIN 2.955 mls/hr IV.CONT TITRATE PRN Rx#:[id number] 1/2 Normal Saline Inj 1,000 ML 1000 / 1000 @ 84 mls/hr IV.CONT .[id number] [facility] Rx#:[id number] Diflucan 200 mg Premix Bag 200 200 / 200 200 / 200 ML @ 100 mls/hr IV.SIG Q24H [facility] Rx#:[id number] KCl 20 mEq Premix Inj 20 meq In 100 / 100 100 / 100 100 ml @ 50 mls/hr IV.SIG Q2H [facility] Rx#:[id number] Vancomycin Inj 1,250 MG In NS 262.5 / 262.5 Inj 250 ML @ 250 mls/hr IV.SIG Q18H [facility] Rx#:[id number] Vancomycin Inj 1,350 MG In NS 513.5 / 513.5 Inj 500 ML @ 250 mls/hr IV.SIG Q12H [facility] Rx#:[id number] fentaNYL 10 mcg/mL Premix Drip 250 / 250 250 / 250 2,500 mcg In 250 ml @ 50 MCG/HR 5 mls/hr IV.SIG TITRATE PRN Rx #:[id number] Tube Feeding 443 / 443 335 / 335 Tube Irrigant 60 / 60 Output: Urine Amount (Catheter) 1600 / 1600 850 / 850 Straight 1600 / 1600 850 / 850 Other: Date of Last Bowel Movement 10/11/18 10/11/18 10/11/18 10/09/18 12:25 Blood - Peripheral Aerobic Blood Culture - Preliminary No growth in 3 days 10/09/18 12:25 Blood - Peripheral Anaerobic Blood Culture - Preliminary No growth in 3 days 10/09/18 12:20 Blood - Peripheral Aerobic Blood Culture - Preliminary No growth in 3 days 10/09/18 12:20 Blood - Peripheral Anaerobic Blood Culture - Preliminary No growth in 3 days 10/07/18 08:00 Blood - Peripheral Aerobic Blood Culture - Final No growth in 5 days 10/07/18 08:00 Blood - Peripheral Anaerobic Blood Culture - Final No growth in 5 days 10/07/18 08:05 Blood - Peripheral Aerobic Blood Culture - Final No growth in 5 days 10/07/18 08:05 Blood - Peripheral Anaerobic Blood Culture - Final No growth in 5 days 10/08/18 15:20 Lumbar Puncture Gram Stain - Final 10/08/18 15:20 Lumbar Puncture CSF Culture - Final No growth in 72 hours 10/08/18 06:45 Sputum - Endotracheal Gram Stain - Final 10/08/18 06:45 Sputum - Endotracheal Sputum Culture - Final S. aureus MRSA Lab - Hematology Results 10/11/18 10/12/18 04:54 05:09 WBC 3.3 L 3.0 L RBC 2.79 L 2.61 L Hgb 9.2 L 8.6 L Hct 26.8 L 24.7 L MCV 95.9 94.5 MCH 32.8 32.8 MCHC 34.2 34.7 RDW 16.3 16.0 Plt Count 47 L 43 L MPV 10.0 10.4 Prelim Diff (Auto) Manual diff required Slide review pending Neut % (Auto) 76.8 H Lymph % (Auto) 10.4 [place] % (Auto) 9.5 H Eos % (Auto) 2.6 Baso % (Auto) 0.7 Neut # (Auto) 2.3 Lymph # (Auto) 0.3 L [place] # (Auto) 0.3 Eos # (Auto) 0.1 Baso # (Auto) 0.0 WBC Differential Manual diff final Manual diff final Seg Neuts % (Manual) 87 H 68 Band Neuts % (Manual) 4 15 H Lymphocytes % (Manual) 3 L 8 L Monocytes % (Manual) 5 7 Eosinophils % (Manual) 1 1 Basophils % (Manual) 1 Abs Neuts (Manual) 3.0 2.5 Differential Comment . . Toxic Granulation 1+ H 1+ H Platelet Estimate Low L Low L Platelet Morphology Enlarged H Normal Tear Drop Cells 1+ H 1+ H Ovalocytes 1+ H 1+ H Lab - Chemistry Results 10/11/18 10/11/18 10/12/18 04:54 19:45 05:09 Sodium 145 145 Potassium 3.7 4.0 4.0 Chloride 116 H 117 H Carbon Dioxide 21.4 20.6 L Anion Gap 8 7 BUN 14 15 Creatinine 0.92 1.13 Estimated GFR 87 L 69 L Random Glucose 98 103 Calcium 7.1 L* 7.3 L* Prot Corrected Calcium 7.5 L 7.7 L Phosphorus 1.9 L 2.7 Magnesium 2.2 2.3 Total Bilirubin 0.8 1.1 H AST 133 H 141 H ALT 27 26 Alkaline Phosphatase 91 143 H Total Protein 6.3 L 6.3 L Albumin 1.7 L 1.5 L Imaging: ITS Impressions Head CT 10/07/18 07:55 CONCLUSION: 1. Negative CT Head non contrast. 2. Stable compared to recent study on 09/25/2018 . Head MRI 10/08/18 00:00 CONCLUSION: 1. Subcortical T2 hyperintensity in the left frontoparietal region has markedly decreased in size. Rapid resolution would be more indicative of an inflammatory or ischemic process. 2. No characteristic findings of acute infarct, hemorrhage or mass. Lumbar Puncture Fluoroscopy 10/08/18 00:00 CONCLUSION: 1. Uncomplicated fluoroscopically guided lumbar puncture. Chest X-Ray 10/11/18 12:36 CONCLUSION: No significant change Physical Exam: PHYSICAL EXAMINATION: GENERAL: Patient intubated. No distress. HEENT: Head is atraumatic. No icterus. NECK: Supple. No swelling or adenopathy. LUNGS: Bibasilar rhonchi same. HEART: Regular S1 and S2 without murmurs. ABDOMEN: Decreased bowel sounds. Soft. EXTREMITIES: No clubbing, cyanosis or edema. SKIN: No diffuse skin rash. NEUROLOGIC: Unable to assess. PSYCHIATRIC: Unable to assess. Assessment and Plan - Plan IMPRESSION: 1. Seizure in patient with acquired immunodeficiency syndrome. 2. Altered mental status. ? etiology. 3. Acute encephalopathy. 4. Fever. ? drug fever vs infection. 5. Possible sepsis. RECOMMENDATIONS: 1. Continue Diflucan. Monitor cryptococcal antigen in CSF. 2. Continue the prophylactic azithromycin for MAC. 3. Monitor CSF culture and studies. 4. Continue vancomycin. Pharmacy to monitor. 5. Follow blood cultures. 6. Hold pyrimethamine, sulfadiazine and leucovorin He does not have any lesions on MRI and therefore probably this is not toxoplasmosis. ? drug fever related to these meds. 7. Monitor temperature.
[2018-10-12 23:09] LABS: Bilirubin,Urine Negative (Negative); Clarity,Urine Cloudy (Clear); Color,Urine Amber (Yellw/Straw); Glucose,Urine (UA) Negative (Negative); Leukocyte Esterase,Urine Negative (Negative); Mucus,Urine Few /lpf (Occasional); Nitrite,Urine Negative (Negative); Specific Gravity,Urine 1.019 (1.002-1.035); Urobilinogen,Urine 4 or Greater mg/dL (Less than 2)
[2018-10-13] MEDS: Dexmedetomidine Inj 200 MCG in Sodium Chlor 0.9% Inj 48 ML IV.CONT PRN ×3 (00:56→03:46)
[2018-10-13] MEDS: Propofol 1000 mg/100 ml Inj 1,000 MG/100 ML BOTTLE IV.CONT PRN ×7 (00:59→23:20)
[2018-10-13] MEDS: Oral Hygiene Kit OROPHARYNG SCH ×4 (01:54→15:55)
[2018-10-13] MEDS: Heparin - SQ 10,000 UNITS/ML Vial SQ SCH ×2 (03:46→09:57)
--- NOTE | 2018-10-13 04:34 | XR ---
EXAM DATE: 10/13/2018 4:22 AM EST AGE/SEX: 48 years / Male INDICATIONS: Shortness of breath, possible pulmonary disease. CLINICAL DATA: This is the patient's subsequent encounter. Patient reports that signs and symptoms h ave been present for 1 week and indicates a pain score of 0/10. MEDICAL/SURGICAL HISTORY: HIV. Hepatitis C. Chronic obstructive pulmonary disease. None. COMPARISON: [facility], CHEST 1V SINGLE AP, 10/11/2018. . FINDINGS: Endotracheal tube in good position. NG enters stomach. Bilateral mostly basilar and perihilar airspac e similar to October 11. Probable small effusions. CONCLUSION: Bilateral mostly basilar and perihilar airspace disease similar to October 11. Support apparatus unc hanged. Electronically signed by: Isael Tian MD 10/13/2018 4:32 AM EST
[2018-10-13 05:48] LABS: Baso % (Auto) 0.6 % (0.0-2.0); Eos # (Auto) 0.1 th/mm3 (0.0-0.4); Eos % (Auto) 2.2 % (0.0-4.0); Hematocrit 26.6 % (39.0-51.0); Hemoglobin 9.2 gm/dL (13.0-17.0); Lymph # (Auto) 0.5 th/mm3 (1.0-4.8); Lymph % (Auto) 15.4 % (9.0-44.0); Mean Corpuscular HGB Conc 34.6 % (32.0-36.0); Mean Corpuscular Hemoglobin 33.1 pg (27.0-34.0); Mean Corpuscular Volume 95.7 fL (80.0-100.0); Mean Platelet Volume 11.8 fL (7.0-11.0); Mono # (Auto) 0.4 th/mm3 (0.0-0.9); Mono % (Auto) 12.4 % (0.0-8.0); Neut # (Auto) 2.1 th/mm3 (1.8-7.7); Neut % (Auto) 69.4 % (16.0-70.0); Platelet Count 52 th/mm3 (150-450); Red Blood Count 2.78 mil/mm3 (4.50-5.90); Red Cell Distribution Width 15.7 % (11.6-17.2)
[2018-10-13 06:13] LABS: Alanine Aminotransferase 29 U/L (12-78); Albumin 1.5 g/dL (3.4-5.0); Anion Gap 6 meq/L (5-15); Aspartate Aminotransferase 143 U/L (15-37); Blood Urea Nitrogen 23 mg/dL (7-18); Calcium 7.5 mg/dL (8.5-10.1); Carbon Dioxide 23.8 meq/L (21.0-32.0); Chloride 116 meq/L (98-107); Glomerular Filtration Rate 60 mL/min (>89); Glucose,Random 107 mg/dL (74-106); Magnesium 2.3 mg/dL (1.5-2.5); Potassium 3.9 meq/L (3.5-5.1); Sodium 146 meq/L (136-145)
[2018-10-13 06:16] LABS: Alkaline Phosphatase 172 U/L (45-117); Phosphorus 3.1 mg/dL (2.5-4.9); Total Protein 6.4 g/dL (6.4-8.2)
[2018-10-13] MEDS: Dexmedetomidine Inj 1,000 MCG in Sodium Chlor 0.9% Inj 240 ML IV.CONT PRN ×2 (06:32→21:49)
[2018-10-13] MEDS ORDERED: Pharmacy Ordered Lab Info OTHER ONE (07:45)
[2018-10-13] MEDS: Chlorhexidine 0.12% Oral Kit 15 ML UDC OROPHARYNG SCH ×2 (09:10→20:30)
[2018-10-13] MEDS: Famotidine PF Inj 20 MG/2 ML Vial IV.PUSH SCH ×2 (09:19→21:50)
[2018-10-13] MEDS: Beneprotein Powder Packet G-TUBE SCH ×3 (09:19→17:02)
[2018-10-13] MEDS: Topiramate 25 MG Tablet PO SCH ×2 (09:19→21:50)
[2018-10-13] MEDS: Vancomycin Inj 1,350 MG in Sodium Chlor 0.9% Inj 500 ML IV.SIG SCH (09:19)
[2018-10-13] MEDS: Famotidine 20 MG Tablet PO SCH ×2 (09:20→21:50)
[2018-10-13] MEDS: Senna/Docusate Sodium 8.6/50 MG Tablet PO SCH ×2 (09:20→21:50)
[2018-10-13 10:48] LABS: Lymphocytes 11 % (9-44); Monocytes 4 % (0-8)
[2018-10-13 10:49] LABS: Tear Drop Cells 1+; Toxic Granulation 1+
--- NOTE | 2018-10-13 10:49 | P.PNCC ---
Subjective Subjective Remarks/Hospital Course: 48yM with history of HIV and CD4+ count <20 presenting with seizure and fever. The patient was admitted from 09/26-10/05/18 for fever and headache, had an initial attempt at LP performed in the ED but was unsuccessful and subsequently declined any further attempts. He had blood cultures which were negative at 5 days and positive toxoplasma IgG, treated empirically with IV fluconazole and discharged home with PO fluconazole and prophylactic azithromycin and bactrim. The patient is chronic non-compliant with his HIV medications and was reportedly not taking his discharge meds. Today, he was at home and had a 2 minute seizure witnessed by his sister Beata. He was brought to the ED via EMS and had a temp of 101F and heart rate of 150. He was given a dose of vanco, ceftazidime, and acyclovir along with 3L NS bolus. He had a head CT which was unchanged from his previous visit. On my evaluation, the patient is encephalopathic and oriented to name only. He is unable to provide any further meaningful details to HPI. I spoke with the patient's sister Beata, who says that the patient is frequent non-compliant with his medications, reportedly took "a whole bottle of percocet" two days ago (just after discharge), and "hasn't been in his right mind since then. He can't finish a sentence and has been urinating himself". 10/08: Patient intubated overnight for continued respiratory distress/ hypoxia. Currently sedated and intubated. 10/09: Patient growing MRSA in sputum culture, febrile to 103F, CSF shows no organisms on gram stain and cultures pending. 10/10: Remains intubated heavily sedated. Remains on suspected toxoplasmosis treatment with vitamin Timentin sulfadiazine and leucovorin. CSF cultures remains negative. 10/11: Remains intubated and sedated. Failed CPAP trial yesterday due to severe tachypnea. Treatment for toxoplasmosis currently held by ID as it is known least high. CSF cultures remains negative. Start diuresis with IV Lasix , start Precedex to facilitate weaning 10/12: Attempt is being made to transition from propofol to Precedex to facilitate vent weaning but patient not tolerating becomes very tachypneic and anxious. Restarted back on propofol. We will start scheduled Ativan to facilitate weaning propofol. 10/13: Remains very critical spiking high fevers at 102. Significant difficulties and ventilator and sedation weaning due to severe agitation and severe ventilator asynchrony once sedation is lowered. Family wants continued aggressive care. Early tracheostomy may help reduce sedation and ventilator wean. Will discuss with sister who is the POA. Due to continued fever I will check CT chest abdomen and pelvis to rule out abscess loculated effusions etc. pancultured yesterday pending Objective Vital Signs / I&O: Vital Signs 10/12/18 11:00 10/12/18 11:28 10/12/18 11:30 Temperature Pulse Rate 86 85 Respiratory Rate 27 H 27 H 28 H Blood Pressure 100/59 L 102/60 Pulse Oximetry 96 95 95 10/12/18 12:00 10/12/18 12:30 10/12/18 13:00 Temperature 99.6 F Pulse Rate 85 85 84 Respiratory Rate 14 9 L 13 Blood Pressure 100/62 102/62 102/56 L Pulse Oximetry 94 L 94 L 95 10/12/18 13:30 10/12/18 14:00 10/12/18 14:30 Temperature Pulse Rate 85 85 84 Respiratory Rate 18 20 25 H Blood Pressure 103/58 L 104/59 L 95/55 L Pulse Oximetry 94 L 95 84 L 10/12/18 15:00 10/12/18 15:30 10/12/18 16:00 Temperature Pulse Rate 85 85 86 Respiratory Rate 26 H 26 H 27 H Blood Pressure 93/56 L 97/60 L 96/51 L Pulse Oximetry 94 L 93 L 96 10/12/18 16:30 10/12/18 19:00 10/12/18 19:30 Temperature 100.6 F H Pulse Rate 85 84 85 Respiratory Rate 25 H 31 H 33 H Blood Pressure 94/50 L 95/53 L 96/53 L Pulse Oximetry 99 96 95 10/12/18 20:00 10/12/18 20:09 10/12/18 20:30 Temperature 102.6 F H Pulse Rate 85 86 Respiratory Rate 41 H 30 H 32 H Blood Pressure 98/57 L 98/56 L Pulse Oximetry 95 96 96 10/12/18 21:00 10/12/18 21:30 10/12/18 22:00 Temperature Pulse Rate 86 87 85 Respiratory Rate 32 H 32 H 31 H Blood Pressure 94/52 L 93/51 L 93/52 L Pulse Oximetry 95 94 L 94 L 10/12/18 22:30 10/12/18 23:00 10/12/18 23:30 Temperature Pulse Rate 84 84 83 Respiratory Rate 31 H 31 H 32 H Blood Pressure 93/55 L 96/51 L 96/54 L Pulse Oximetry 94 L 94 L 93 L 10/13/18 00:00 10/13/18 00:08 10/13/18 00:30 Temperature 101 F H Pulse Rate 83 86 Respiratory Rate 34 H 32 H 34 H Blood Pressure 97/53 L 96/55 L Pulse Oximetry 94 L 93 L 93 L 10/13/18 01:00 10/13/18 01:30 10/13/18 02:00 Temperature Pulse Rate 87 86 83 Respiratory Rate 35 H 35 H 34 H Blood Pressure 100/54 L 95/51 L 91/50 L Pulse Oximetry 93 L 92 L 93 L 10/13/18 02:30 10/13/18 03:00 10/13/18 03:30 Temperature Pulse Rate 83 82 82 Respiratory Rate 32 H 30 H 29 H Blood Pressure 94/53 L 94/55 L 99/58 L Pulse Oximetry 93 L 94 L 94 L 10/13/18 04:00 10/13/18 04:17 10/13/18 04:30 Temperature 100.1 F H Pulse Rate 83 84 Respiratory Rate 33 H 36 H 33 H Blood Pressure 98/57 L 100/59 L Pulse Oximetry 94 L 95 92 L 10/13/18 05:00 10/13/18 05:30 10/13/18 06:00 Temperature Pulse Rate 82 81 81 Respiratory Rate 32 H 30 H 29 H Blood Pressure 99/55 L 98/54 L 101/56 L Pulse Oximetry 93 L 93 L 94 L 10/13/18 06:30 10/13/18 07:00 10/13/18 07:30 Temperature Pulse Rate 81 80 80 Respiratory Rate 28 H 28 H 30 H Blood Pressure 100/56 L 101/58 L 100/55 L Pulse Oximetry 95 95 94 L 10/13/18 08:00 Temperature 99.8 F H Pulse Rate 80 Respiratory Rate 30 H Blood Pressure 103/55 L Pulse Oximetry 93 L Intake & Output 10/12/18 10/13/18 10/13/18 18:59 06:59 18:59 Intake Total 2091.5 / 2091.5 1641.5 / 1641.5 100 / 100 Output Total 800 / 800 600 / 600 Balance 1291.5 / 1291.5 1041.5 / 1041.5 100 / 100 Weight 107.5 kg Intake: IV 1513.5 / 1513.5 1113.5 / 1113.5 100 / 100 Precedex Inj 200 MCG In NS Inj 250 / 250 200 / 200 48 ML @ 0.2 MCG/KG/HR 4.92 mls/ hr IV.CONT TITRATE PRN Rx#: [id number] Diprivan 1000 mg/100 ml Inj 1, 200 / 200 400 / 400 100 / 100 000 mg In 100 ml @ 5 MCG/KG/MIN 2.955 mls/hr IV.CONT TITRATE PRN Rx#:[id number] Diflucan 200 mg Premix Bag 200 200 / 200 ML @ 100 mls/hr IV.SIG Q24H [facility] Rx#:[id number] KCl 20 mEq Premix Inj 20 meq In 100 / 100 100 ml @ 50 mls/hr IV.SIG Q2H PRN Rx#:[id number] Vancomycin Inj 1,350 MG In NS 513.5 / 513.5 513.5 / 513.5 Inj 500 ML @ 250 mls/hr IV.SIG Q12H [facility] Rx#:[id number] fentaNYL 10 mcg/mL Premix Drip 250 / 250 2,500 mcg In 250 ml @ 50 MCG/HR 5 mls/hr IV.SIG TITRATE PRN Rx #:[id number] Tube Feeding 458 / 458 328 / 328 Water Bolus Amount 120 / 120 200 / 200 Output: Urine 800 / 800 600 / 600 Other: # Incontinent Voids 1 Date of Last Bowel Movement 10/11/18 10/11/18 10/11/18 # Bowel Movements 0 Result Diagrams: 10/13/18 04:55 10/13/18 04:55 Objective Remarks: GEN: Ill-appearing, intubated and sedated HEENT: NCAT, ETT and OGT present NECK: No JVD, trachea midline CARDIO: S1-S2 normal no murmurs PULM: Breath sounds equal bilaterally. Few coarse rhonchi bilaterally. On lightening sedation becomes very tachypneic, asynchronous with the vent ABD/GI: Soft, non-tender, mildly distended, easily reducible umbilical hernia EXT/MSK: No peripheral edema. SKIN: Flushed, mildly diaphoretic. NEURO: RASS -2. Heavily sedated for vent synchrony. Slightly moves extremities to pain. Intermittently follows on left lower extremity Assessment and Plan - Assessment and Plan Plan: 48yM with history of HIV/AIDS, recently admitted for presumed fungal meningitis/ [employer] toxoplasmosis, reported medication non-compliance and substance abuse, presenting with seizure, fever/ sepsis, and encephalopathy NEURO: -Seizure precautions. Neurology following, no seizure activity seen on EEG -CSF analysis- no organisms seen, 6 WBCs/ 4 RBCs/ clear, opening pressure 23, no growth -Continue home dose of Topamax -MRI brain with contrast 10/08 Subcortical T2 hyperintensity in the left frontoparietal region has markedly decreased in size. Rapid resolution more indicative of an inflammatory or ischemic process. Currently no lesion suggestive of toxoplasmosis. Treatment for toxo held for now -Antifungals as below CARDIO: -BP stable -Echo performed on 05/02/18, showed EF 55-60%, mild TR, no vegetations -Continue IV Lasix PULM: -Spontaneous breathing trials daily, failing due to tachypnea respiratory distress. Mental status will not permit extubation -Unable to vent wean or sedation wean due to severe ventilator synchrony and agitation -Early tracheostomy may be appropriate as the family requested aggressive care -We will discuss with sister who is the POA and plan for tracheostomy 10/14/2018 -Vent bundle, Nebs, Vent day 7 F/E/N: -Continue free water flushes -Monitor Is and Os -Electrolyte replacement protocol -IV Lasix 40 mg daily due to positive fluid balance RENAL: -MIGUEL ANGEL, creat stable -Straight cath PRN ID: -ID following (Dr. Toribio) * CSF negative thus far * MRSA pneumonia -Continue Diflucan, vancomycin, prophylactic azithromycin -Holding pyrimethamine, sulfadiazine, leucovorin, per ID as MRI brain did not show any lesions suggestive of toxoplasmosis -CT chest abdomen and pelvis due to persistent fever rule out abscess PROPHY: -SCDs, SQH. Hold subcu heparin for possible tracheostomy in a.m. -PPI Overall: This patient is critically ill and at very high risk for deterioration. He requires continued ICU level of care. Level 3 follow up To help prompt me to consider important information that might be impacting today's encounter and assessment, information from prior notes written by myself or my colleagues may have been "brought forward" into today's note. My signature on this note, however, is an attestation that I personally performed the exam, history, and/or decision-making noted today, and, unless otherwise indicated, the interactions with patient, family, and staff as well as the review of records all occurred today. I also attest that the listed assessment and stated plan reflect my best clinical judgment today based on the combination of historical information, prior notes, and today's exam/ interactions.
[2018-10-13] MEDS ORDERED: Diatrizoate Meglum/Diatrizoate Sod Liq 9 ML UDC PO ONE (11:00)
[2018-10-13] MEDS: FLUCONAZOLE 200 MG IV.SIG SCH (11:31)
[2018-10-13] MEDS: fentaNYL 10 mcg/mL Premix Drip 2,500 MCG/250 ML BAG IV.SIG PRN (11:38)
--- NOTE | 2018-10-13 14:49 | P.PNID ---
Subjective Remarks: Patient is currently intubated and on the ventilator. Not able to wean off the ventilator. Sedated. Nonresponsive. continued low grade fever. Sandoval secretions via the endotracheal tube. Sputum culture has mrsa. CSF culture has no growth. Csf toxo, HSV, cryptococcal antigen is negative. This is a 48-year-old white male who has AIDS. The patient was recently admitted to the hospital and treated for headaches. He received empiric antibiotic treatment. He refused a lumbar puncture and therefore, it was difficult to determine the cause of his headaches. MRI did not show any significant lesions. The patient presented to the emergency department with seizure. His IgM titer for toxoplasma was negative, but the IgG was positive. The patient's toxicology screen is positive for cocaine and cannabinoids. Past Medical History: PAST MEDICAL HISTORY: Depression, COPD, bipolar disorder, anxiety disorder, hepatitis C, neuropathy, HIV, posttraumatic stress disorder, history of MRSA. Allergies/Adverse Reactions: Allergies haloperidol Allergy (Severe, Verified 09/25/18 17:57) Swelling TONGUE SWELLING - Per pt. Objective Vital Signs 10/12/18 15:00 10/12/18 15:30 10/12/18 16:00 Temperature Pulse Rate 85 85 86 Respiratory Rate 26 H 26 H 27 H Blood Pressure 93/56 L 97/60 L 96/51 L Pulse Oximetry 94 L 93 L 96 10/12/18 16:30 10/12/18 19:00 10/12/18 19:30 Temperature 100.6 F H Pulse Rate 85 84 85 Respiratory Rate 25 H 31 H 33 H Blood Pressure 94/50 L 95/53 L 96/53 L Pulse Oximetry 99 96 95 10/12/18 20:00 10/12/18 20:09 10/12/18 20:30 Temperature 102.6 F H Pulse Rate 85 86 Respiratory Rate 41 H 30 H 32 H Blood Pressure 98/57 L 98/56 L Pulse Oximetry 95 96 96 10/12/18 21:00 10/12/18 21:30 10/12/18 22:00 Temperature Pulse Rate 86 87 85 Respiratory Rate 32 H 32 H 31 H Blood Pressure 94/52 L 93/51 L 93/52 L Pulse Oximetry 95 94 L 94 L 10/12/18 22:30 10/12/18 23:00 10/12/18 23:30 Temperature Pulse Rate 84 84 83 Respiratory Rate 31 H 31 H 32 H Blood Pressure 93/55 L 96/51 L 96/54 L Pulse Oximetry 94 L 94 L 93 L 10/13/18 00:00 10/13/18 00:08 10/13/18 00:30 Temperature 101 F H Pulse Rate 83 86 Respiratory Rate 34 H 32 H 34 H Blood Pressure 97/53 L 96/55 L Pulse Oximetry 94 L 93 L 93 L 10/13/18 01:00 10/13/18 01:30 10/13/18 02:00 Temperature Pulse Rate 87 86 83 Respiratory Rate 35 H 35 H 34 H Blood Pressure 100/54 L 95/51 L 91/50 L Pulse Oximetry 93 L 92 L 93 L 10/13/18 02:30 10/13/18 03:00 10/13/18 03:30 Temperature Pulse Rate 83 82 82 Respiratory Rate 32 H 30 H 29 H Blood Pressure 94/53 L 94/55 L 99/58 L Pulse Oximetry 93 L 94 L 94 L 10/13/18 04:00 10/13/18 04:17 10/13/18 04:30 Temperature 100.1 F H Pulse Rate 83 84 Respiratory Rate 33 H 36 H 33 H Blood Pressure 98/57 L 100/59 L Pulse Oximetry 94 L 95 92 L 10/13/18 05:00 10/13/18 05:30 10/13/18 06:00 Temperature Pulse Rate 82 81 81 Respiratory Rate 32 H 30 H 29 H Blood Pressure 99/55 L 98/54 L 101/56 L Pulse Oximetry 93 L 93 L 94 L 10/13/18 06:30 10/13/18 07:00 10/13/18 07:30 Temperature Pulse Rate 81 80 80 Respiratory Rate 28 H 28 H 30 H Blood Pressure 100/56 L 101/58 L 100/55 L Pulse Oximetry 95 95 94 L 10/13/18 08:00 10/13/18 11:42 10/13/18 12:00 Temperature 99.8 F H 99.7 F H Pulse Rate 80 87 Respiratory Rate 30 H 28 H 16 Blood Pressure 103/55 L 112/74 Pulse Oximetry 93 L 95 94 L Intake & Output 10/12/18 10/13/18 10/13/18 18:59 06:59 18:59 Intake Total 2091.5 / 2091.5 1891.5 / 1891.5 913.5 / 913.5 Output Total 800 / 800 600 / 600 Balance 1291.5 / 1291.5 1291.5 / 1291.5 913.5 / 913.5 Weight 107.5 kg Intake: IV 1513.5 / 1513.5 1363.5 / 1363.5 913.5 / 913.5 Precedex Inj 200 MCG In NS Inj 250 / 250 200 / 200 48 ML @ 0.2 MCG/KG/HR 4.92 mls/ hr IV.CONT TITRATE PRN Rx#: [id number] Diprivan 1000 mg/100 ml Inj 1, 200 / 200 400 / 400 200 / 200 000 mg In 100 ml @ 5 MCG/KG/MIN 2.955 mls/hr IV.CONT TITRATE PRN Rx#:[id number] Diflucan 200 mg Premix Bag 200 200 / 200 200 / 200 ML @ 100 mls/hr IV.SIG Q24H [facility] Rx#:[id number] KCl 20 mEq Premix Inj 20 meq In 100 / 100 100 ml @ 50 mls/hr IV.SIG Q2H PRN Rx#:[id number] Vancomycin Inj 1,350 MG In NS 513.5 / 513.5 513.5 / 513.5 513.5 / 513.5 Inj 500 ML @ 250 mls/hr IV.SIG Q12H [facility] Rx#:[id number] fentaNYL 10 mcg/mL Premix Drip 250 / 250 250 / 250 2,500 mcg In 250 ml @ 50 MCG/HR 5 mls/hr IV.SIG TITRATE PRN Rx #:[id number] Tube Feeding 458 / 458 328 / 328 Water Bolus Amount 120 / 120 200 / 200 Output: Urine 800 / 800 600 / 600 Other: # Incontinent Voids 1 Date of Last Bowel Movement 10/11/18 10/11/18 10/11/18 # Bowel Movements 0 10/13/18 04:28 Sputum - Endotracheal Gram Stain - Final 10/13/18 04:28 Sputum - Endotracheal Sputum Culture - Pending 10/12/18 22:55 Blood - Peripheral Aerobic Blood Culture - Preliminary No growth in 1 day 10/12/18 22:55 Blood - Peripheral Anaerobic Blood Culture - Preliminary No growth in 1 day 10/12/18 22:50 Blood - Peripheral Aerobic Blood Culture - Preliminary No growth in 1 day 10/12/18 22:50 Blood - Peripheral Anaerobic Blood Culture - Preliminary No growth in 1 day 10/09/18 12:25 Blood - Peripheral Aerobic Blood Culture - Preliminary No growth in 4 days 10/09/18 12:25 Blood - Peripheral Anaerobic Blood Culture - Preliminary No growth in 4 days 10/09/18 12:20 Blood - Peripheral Aerobic Blood Culture - Preliminary No growth in 4 days 10/09/18 12:20 Blood - Peripheral Anaerobic Blood Culture - Preliminary No growth in 4 days 10/12/18 21:50 Catheterized Urine Urine Culture - Pending 10/07/18 08:00 Blood - Peripheral Aerobic Blood Culture - Final No growth in 5 days 10/07/18 08:00 Blood - Peripheral Anaerobic Blood Culture - Final No growth in 5 days 10/07/18 08:05 Blood - Peripheral Aerobic Blood Culture - Final No growth in 5 days 10/07/18 08:05 Blood - Peripheral Anaerobic Blood Culture - Final No growth in 5 days 10/08/18 15:20 Lumbar Puncture Gram Stain - Final 10/08/18 15:20 Lumbar Puncture CSF Culture - Final No growth in 72 hours 10/08/18 06:45 Sputum - Endotracheal Gram Stain - Final 10/08/18 06:45 Sputum - Endotracheal Sputum Culture - Final S. aureus MRSA Lab - Hematology Results 10/12/18 10/13/18 05:09 04:55 WBC 3.0 L 3.0 L RBC 2.61 L 2.78 L Hgb 8.6 L 9.2 L Hct 24.7 L 26.6 L MCV 94.5 95.7 MCH 32.8 33.1 MCHC 34.7 34.6 RDW 16.0 15.7 Plt Count 43 L 52 L MPV 10.4 11.8 H Prelim Diff (Auto) Slide review pending Slide review pending Neut % (Auto) 76.8 H 69.4 Lymph % (Auto) 10.4 15.4 Parker % (Auto) 9.5 H 12.4 H Eos % (Auto) 2.6 2.2 Baso % (Auto) 0.7 0.6 Neut # (Auto) 2.3 2.1 Lymph # (Auto) 0.3 L 0.5 L Parker # (Auto) 0.3 0.4 Eos # (Auto) 0.1 0.1 Baso # (Auto) 0.0 0.0 WBC Differential Manual diff final Manual diff final Seg Neuts % (Manual) 68 62 Band Neuts % (Manual) 15 H 22 H Lymphocytes % (Manual) 8 L 11 Monocytes % (Manual) 7 4 Eosinophils % (Manual) 1 Basophils % (Manual) 1 1 Abs Neuts (Manual) 2.5 2.5 Differential Comment . . Toxic Granulation 1+ H 1+ H Platelet Estimate Low L Low L Platelet Morphology Normal Enlarged H Tear Drop Cells 1+ H 1+ H Ovalocytes 1+ H Lab - Chemistry Results 10/11/18 10/12/18 10/13/18 19:45 05:09 04:55 Sodium 145 146 H Potassium 4.0 4.0 3.9 Chloride 117 H 116 H Carbon Dioxide 20.6 L 23.8 Anion Gap 7 6 BUN 15 23 H Creatinine 1.13 1.27 Estimated GFR 69 L 60 L Random Glucose 103 107 H Calcium 7.3 L* 7.5 L Prot Corrected Calcium 7.7 L Phosphorus 2.7 3.1 Magnesium 2.3 2.3 Total Bilirubin 1.1 H 1.2 H AST 141 H 143 H ALT 26 29 Alkaline Phosphatase 143 H 172 H Total Protein 6.3 L 6.4 Albumin 1.5 L 1.5 L Imaging: ITS Impressions Head CT 10/07/18 07:55 CONCLUSION: 1. Negative CT Head non contrast. 2. Stable compared to recent study on 09/25/2018 . Head MRI 10/08/18 00:00 CONCLUSION: 1. Subcortical T2 hyperintensity in the left frontoparietal region has markedly decreased in size. Rapid resolution would be more indicative of an inflammatory or ischemic process. 2. No characteristic findings of acute infarct, hemorrhage or mass. Lumbar Puncture Fluoroscopy 10/08/18 00:00 CONCLUSION: 1. Uncomplicated fluoroscopically guided lumbar puncture. Chest X-Ray 10/13/18 06:00 CONCLUSION: Bilateral mostly basilar and perihilar airspace disease similar to October 11. Support apparatus unchanged. Physical Exam: PHYSICAL EXAMINATION: GENERAL: Patient intubated. No distress. HEENT: Head is atraumatic. No icterus. NECK: Supple. No swelling or adenopathy. LUNGS: Bibasilar rhonchi. HEART: Regular S1 and S2 without murmurs. ABDOMEN: Decreased bowel sounds. Soft. No mass palpable. EXTREMITIES: No clubbing, cyanosis or edema. SKIN: No diffuse skin rash. NEUROLOGIC: Unable to assess. PSYCHIATRIC: Unable to assess. Assessment and Plan - Plan IMPRESSION: 1. Seizure in patient with acquired immunodeficiency syndrome. 2. Altered mental status. ? etiology. 3. Acute encephalopathy. 4. Fever. ? drug fever vs infection. 5. Possible sepsis. 6. MRSA pneumonia. RECOMMENDATIONS: 1. Continue Diflucan. Change to PO. 2. Continue the prophylactic azithromycin for MAC. 3. Monitor CSF culture and studies. 4. Continue vancomycin. Pharmacy to monitor. 5. Follow blood cultures. 6. Stop pyrimethamine, sulfadiazine and leucovorin. 7. Monitor temperature. DW family at bedside.
[2018-10-13] MEDS: Acetaminophen 325 MG Tablet PO PRN ×2 (17:02→23:20)
--- NOTE | 2018-10-13 20:51 | CT ---
EXAM DATE: 10/13/2018 8:45 PM EST AGE/SEX: 48 years / Male INDICATIONS: Altered mental status. CLINICAL DATA: This is the patient's subsequent encounter. Patient reports that signs and symptoms h ave been present for 1 week and indicates a pain score of Nonresponsive. MEDICAL/SURGICAL HISTORY: HIV. Chronic obstructive pulmonary disease. Hepatitis C. MRSA, pneumoc ystosis None. RADIATION DOSE: 66.34 CTDI (mGy) COMPARISON: [facility] [place], MR HEAD W & W/O CONTRAST, 10/08/2018. . TECHNIQUE: CT of the head without contrast. Using automated exposure control and adjustment of the mA and/or kV according to patient size, radiation dose was kept as low as reasonably achievable to ob tain optimal diagnostic quality images. DICOM format image data is available electronically for revi ew and comparison. FINDINGS: Cerebrum: The ventricles are normal for age. No evidence of midline shift, mass lesion, hemorrhage or acute infarction. No extraaxial fluid collections are seen. Posterior Fossa: The cerebellum and brainstem are intact. The 4th ventricle is midline. The cerebe llopontine angle is unremarkable. Extracranial: The visualized portion of the orbits is intact. There is sphenoid sinusitis. Patient i s intubated. Skull: The calvaria is intact. No evidence of skull fracture. CONCLUSION: No acute intracranial abnormality is demonstrated. . Electronically signed by: Zheng Kimball MD 10/13/2018 8:50 PM EST
--- NOTE | 2018-10-13 20:55 | CT ---
EXAM DATE: 10/13/2018 8:47 PM EST AGE/SEX: 48 years / Male INDICATIONS: Respiratory failure; infiltrates. Rule out abscess. CLINICAL DATA: This is the patient's subsequent encounter. Patient reports that signs and symptoms h ave been present for 1 week and indicates a pain score of Nonresponsive. MEDICAL/SURGICAL HISTORY: HIV. Chronic obstructive pulmonary disease. Hepatitis C. pneumocystiti s, MRSA None. RADIATION DOSE: 11.55 CTDI (mGy) ; Combined studies COMPARISON: [facility] [place], CT CHEST W CONTRAST, 08/22/2018. [facility] [place], CHEST 1V SINGLE AP, 10/13/2018. . TECHNIQUE: Multiple contiguous axial images were obtained through the chest without contrast. Image s were obtained in suspended respiration using multiple row detector helical technique. Using automa christopher exposure control and adjustment of the mA and/or kV according to patient size, radiation dose was kept as low as reasonably achievable to obtain optimal diagnostic quality images. DICOM format imag e data is available electronically for review and comparison. FINDINGS: Patchy areas of dense consolidation with air bronchograms seen of both lungs. These are fairly diffus e but are upper lobe predominant on the left and a middle and lower lobe predominant on the right. Th ere is a tiny right pleural effusion. Dependent consolidation of both lower lobes is seen. No pneumot horax. Scattered subcentimeter mediastinal lymph nodes are again noted. Heart is enlarged, mostly the right atrium. Very small pericardial effusion, not significantly changed. CONCLUSION: Bilateral patchy dense airspace consolidation, mid and lower lung predominant on the righ t, mid and upper lung predominant on the left. These are nonspecific but new and presumably infectiou s or inflammatory. Electronically signed by: Zheng Kimball MD 10/13/2018 8:54 PM EST
--- NOTE | 2018-10-13 21:30 | CT ---
EXAM DATE: 10/13/2018 8:51 PM EST AGE/SEX: 48 years / Male INDICATIONS: Sepsis; rule out abscess. CLINICAL DATA: This is the patient's subsequent encounter. Patient reports that signs and symptoms h ave been present for 1 week and indicates a pain score of Nonresponsive. MEDICAL/SURGICAL HISTORY: HIV. Chronic obstructive pulmonary disease. Hepatitis C. pneumocys titis, MRSA None. RADIATION DOSE: 11.55 CTDI (mGy) ; Combined studies COMPARISON: [facility] [place], CT ABDOMEN & PELVIS W CONTRAST, 02/26/2018. [facility] [place], CT ABDOMEN & PELVIS W/O CONTRA ST, 09/26/2018. . TECHNIQUE: Multiple contiguous axial images were obtained through the abdomen. Images were obtained using multiple row detector helical technique. Using automated exposure control and adjustment of the mA and/or kV according to patient size, radiation dose was kept as low as reasonably achievable to o btain optimal diagnostic quality images. DICOM format image data is available electronically for rev iew and comparison. FINDINGS: Noncontrast appearance of the liver within normal limits. Spleen is enlarged, 16.9 cm craniocaudal, s imilar to prior studies. No focal splenic lesion demonstrated. Small stones are suspected in the gallbladder. No associated inflammatory changes. No duct stone or d uctal dilatation demonstrated. Pancreas and adrenal glands are within normal limits. Bilateral renal cysts are present. There is a 4 mm nonobstructing upper pole and 3 mm nonobstructing stone of the left lower pole. A roughly 7 cm area of heterogeneous and vaguely marginated masslike ar ea seen laterally of the mid zone to lower pole of the right kidney. This is in region of previously seen cysts and appears different in the interim. No obstruction or inflammatory changes seen of the gastrointestinal tract. No free fluid or free air. No lymphadenopathy. Fat-containing umbilical hernia again noted. CONCLUSION: 1. Bilateral renal cysts. A new, broad area of apparent induration laterally of the mid zone to lowe r pole of the right kidney. This is nonspecific. Differential would include an infected and/or ruptur ed cyst. Otherwise, I don't see a significant change or any evidence of infection within the abdomen or pelvis. 2. Splenomegaly again noted. 3. Small nonobstructing stones of the left kidney are unchanged. 4. Umbilical hernia containing fat only and. Electronically signed by: Zheng Kimball MD 10/13/2018 9:29 PM EST
[2018-10-14] MEDS: Oral Hygiene Kit OROPHARYNG SCH ×4 (00:16→17:35)
[2018-10-14] MEDS: Propofol 1000 mg/100 ml Inj 1,000 MG/100 ML BOTTLE IV.CONT PRN ×4 (02:46→19:38)
[2018-10-14] MEDS: Vancomycin Inj 1,350 MG in Sodium Chlor 0.9% Inj 500 ML IV.SIG SCH ×2 (04:02→22:53)
[2018-10-14 05:56] LABS: Baso % (Auto) 0.5 % (0.0-2.0); Eos # (Auto) 0.1 th/mm3 (0.0-0.4); Eos % (Auto) 2.2 % (0.0-4.0); Hematocrit 22.1 % (39.0-51.0); Hemoglobin 7.5 gm/dL (13.0-17.0); Lymph # (Auto) 0.7 th/mm3 (1.0-4.8); Lymph % (Auto) 18.5 % (9.0-44.0); Mean Corpuscular HGB Conc 33.7 % (32.0-36.0); Mean Corpuscular Hemoglobin 33.1 pg (27.0-34.0); Mean Corpuscular Volume 98.3 fL (80.0-100.0); Mean Platelet Volume 11.5 fL (7.0-11.0); Mono # (Auto) 0.4 th/mm3 (0.0-0.9); Neut # (Auto) 2.6 th/mm3 (1.8-7.7); Neut % (Auto) 68.8 % (16.0-70.0); Platelet Count 61 th/mm3 (150-450); Red Blood Count 2.25 mil/mm3 (4.50-5.90); Red Cell Distribution Width 16.3 % (11.6-17.2); White Blood Count 3.8 th/mm3 (4.0-11.0)
[2018-10-14 06:20] LABS: Alanine Aminotransferase 32 U/L (12-78); Albumin 1.5 g/dL (3.4-5.0); Anion Gap 10 meq/L (5-15); Aspartate Aminotransferase 151 U/L (15-37); Blood Urea Nitrogen 26 mg/dL (7-18); Calcium 7.9 mg/dL (8.5-10.1); Carbon Dioxide 21.6 meq/L (21.0-32.0); Chloride 114 meq/L (98-107); Glomerular Filtration Rate 66 mL/min (>89); Glucose,Random 97 mg/dL (74-106); Magnesium 2.2 mg/dL (1.5-2.5); Potassium 3.6 meq/L (3.5-5.1); Sodium 146 meq/L (136-145)
[2018-10-14 06:23] LABS: Alkaline Phosphatase 212 U/L (45-117); Phosphorus 3.4 mg/dL (2.5-4.9); Total Protein 6.7 g/dL (6.4-8.2)
[2018-10-14 07:14] LABS: Activated Partial Thrombo Time 32.8 sec (23.4-31.7); Prothrombin Time 10.1 sec (9.8-11.6)
[2018-10-14] MEDS ORDERED: Sodium Chlor 0.9% Inj 250 ML IV.SIG SCH (08:00)
[2018-10-14] MEDS: Senna/Docusate Sodium 8.6/50 MG Tablet PO SCH ×2 (08:12→21:58)
[2018-10-14] MEDS: Topiramate 25 MG Tablet PO SCH ×2 (08:12→21:57)
[2018-10-14] MEDS: Famotidine PF Inj 20 MG/2 ML Vial IV.PUSH SCH ×2 (08:14→21:57)
[2018-10-14] MEDS: Famotidine 20 MG Tablet PO SCH ×2 (08:16→21:58)
[2018-10-14] MEDS: Beneprotein Powder Packet G-TUBE SCH ×3 (08:17→17:36)
[2018-10-14] MEDS: Chlorhexidine 0.12% Oral Kit 15 ML UDC OROPHARYNG SCH ×2 (08:17→21:57)
--- NOTE | 2018-10-14 08:19 | P.PNCC ---
Subjective Subjective Remarks/Hospital Course: 48yM with history of HIV and CD4+ count <20 presenting with seizure and fever. The patient was admitted from 09/26-10/05/18 for fever and headache, had an initial attempt at LP performed in the ED but was unsuccessful and subsequently declined any further attempts. He had blood cultures which were negative at 5 days and positive toxoplasma IgG, treated empirically with IV fluconazole and discharged home with PO fluconazole and prophylactic azithromycin and bactrim. The patient is chronic non-compliant with his HIV medications and was reportedly not taking his discharge meds. Today, he was at home and had a 2 minute seizure witnessed by his sister Beata. He was brought to the ED via EMS and had a temp of 101F and heart rate of 150. He was given a dose of vanco, ceftazidime, and acyclovir along with 3L NS bolus. He had a head CT which was unchanged from his previous visit. On my evaluation, the patient is encephalopathic and oriented to name only. He is unable to provide any further meaningful details to HPI. I spoke with the patient's sister Beata, who says that the patient is frequent non-compliant with his medications, reportedly took "a whole bottle of percocet" two days ago (just after discharge), and "hasn't been in his right mind since then. He can't finish a sentence and has been urinating himself". 10/08: Patient intubated overnight for continued respiratory distress/ hypoxia. Currently sedated and intubated. 10/09: Patient growing MRSA in sputum culture, febrile to 103F, CSF shows no organisms on gram stain and cultures pending. 10/10: Remains intubated heavily sedated. Remains on suspected toxoplasmosis treatment with vitamin Timentin sulfadiazine and leucovorin. CSF cultures remains negative. 10/11: Remains intubated and sedated. Failed CPAP trial yesterday due to severe tachypnea. Treatment for toxoplasmosis currently held by ID as it is known least high. CSF cultures remains negative. Start diuresis with IV Lasix , start Precedex to facilitate weaning 10/12: Attempt is being made to transition from propofol to Precedex to facilitate vent weaning but patient not tolerating becomes very tachypneic and anxious. Restarted back on propofol. We will start scheduled Ativan to facilitate weaning propofol. 10/13: Remains very critical spiking high fevers at 102. Significant difficulties and ventilator and sedation weaning due to severe agitation and severe ventilator asynchrony once sedation is lowered. Family wants continued aggressive care. Early tracheostomy may help reduce sedation and ventilator wean. Will discuss with sister who is the POA. Due to continued fever I will check CT chest abdomen and pelvis to rule out abscess loculated effusions etc. pancultured yesterday pending 10/14: Remains critically ill and septic T-max again more than 102. CT of the chest shows increasing bilateral consolidation. PJP sent pending at this time. Will discuss with ID about empiric treatment until the cultures are back. CT abdomen also shows questionable infected cyst on the right kidney. Will check renal ultrasound. Plan for tracheostomy and bronchoscopy today will collect additional specimen for PJP and other opportunistic infection Objective Vital Signs / I&O: Vital Signs 10/13/18 11:42 10/13/18 12:00 10/13/18 12:01 Temperature 99.7 F H Pulse Rate 87 83 Respiratory Rate 28 H 16 30 H Blood Pressure 112/74 112/74 Pulse Oximetry 95 94 L 97 10/13/18 12:30 10/13/18 13:00 10/13/18 13:30 Temperature Pulse Rate 82 82 80 Respiratory Rate 30 H 29 H 27 H Blood Pressure 110/58 L 111/57 L 112/58 L Pulse Oximetry 91 L 94 L 94 L 10/13/18 14:00 10/13/18 14:30 10/13/18 15:00 Temperature Pulse Rate 83 82 84 Respiratory Rate 26 H 27 H 28 H Blood Pressure 112/56 L 109/59 L 112/58 L Pulse Oximetry 94 L 93 L 93 L 10/13/18 15:27 10/13/18 15:30 10/13/18 16:00 Temperature 101.1 F H Pulse Rate 84 85 Respiratory Rate 27 H 27 H 31 H Blood Pressure 108/55 L 108/60 Pulse Oximetry 95 92 L 94 L 10/13/18 16:30 10/13/18 17:00 10/13/18 17:30 Temperature Pulse Rate 84 85 85 Respiratory Rate 26 H 27 H 27 H Blood Pressure 110/60 108/57 L 110/61 Pulse Oximetry 94 L 94 L 94 L 10/13/18 18:00 10/13/18 18:30 10/13/18 19:00 Temperature Pulse Rate 85 85 85 Respiratory Rate 28 H 26 H 26 H Blood Pressure 108/55 L 109/57 L 111/58 L Pulse Oximetry 93 L 94 L 94 L 10/13/18 19:30 10/13/18 20:00 10/13/18 20:20 Temperature 102.0 F H Pulse Rate 85 85 Respiratory Rate 26 H 26 H Blood Pressure 110/55 L 109/60 Pulse Oximetry 94 L 94 L 98 10/13/18 20:45 10/13/18 21:00 10/13/18 21:05 Temperature Pulse Rate 92 H 89 87 Respiratory Rate 34 H 31 H 28 H Blood Pressure 142/60 H 117/52 L 110/58 L Pulse Oximetry 96 89 L 99 10/13/18 21:30 10/13/18 22:00 10/13/18 22:06 Temperature Pulse Rate 86 86 Respiratory Rate 27 H 28 H 31 H Blood Pressure 111/58 L 111/57 L Pulse Oximetry 98 99 96 10/13/18 22:30 10/13/18 23:00 10/13/18 23:30 Temperature Pulse Rate 87 87 88 Respiratory Rate 28 H 28 H 26 H Blood Pressure 114/59 L 113/55 L 113/57 L Pulse Oximetry 92 L 96 99 10/14/18 00:00 10/14/18 00:30 10/14/18 00:40 Temperature 102.6 F H 102.8 F H Pulse Rate 87 86 Respiratory Rate 25 H 25 H Blood Pressure 110/59 L 109/59 L Pulse Oximetry 100 100 10/14/18 00:41 10/14/18 01:00 10/14/18 01:30 Temperature Pulse Rate 86 85 Respiratory Rate 24 25 H 26 H Blood Pressure 107/57 L 107/55 L Pulse Oximetry 100 99 97 10/14/18 02:00 10/14/18 02:03 10/14/18 03:00 Temperature Pulse Rate 85 85 78 Respiratory Rate 10 L 32 H 27 H Blood Pressure 96/53 L Pulse Oximetry 97 96 97 10/14/18 03:13 10/14/18 03:30 10/14/18 04:00 Temperature 98.6 F Pulse Rate 77 75 72 Respiratory Rate 25 H 25 H 23 Blood Pressure 103/58 L 106/60 106/62 Pulse Oximetry 99 100 100 10/14/18 04:02 10/14/18 04:30 10/14/18 05:00 Temperature Pulse Rate 70 72 Respiratory Rate 22 26 H 26 H Blood Pressure 103/57 L 104/58 L Pulse Oximetry 100 97 95 Intake & Output 10/13/18 10/14/18 10/14/18 18:59 06:59 18:59 Intake Total 1361.5 / 1361.5 700 / 700 513.5 / 513.5 Output Total 1750 / 1750 350 / 350 Balance -388.5 / -388.5 350 / 350 513.5 / 513.5 Weight 105.6 kg Intake: IV 1013.5 / 1013.5 700 / 700 513.5 / 513.5 Precedex Inj 1,000 MCG In NS 250 / 250 Inj 240 ML @ 0.2 MCG/KG/HR 4.92 mls/hr IV.CONT TITRATE PRN Rx# :[id number] Diprivan 1000 mg/100 ml Inj 1, 300 / 300 400 / 400 000 mg In 100 ml @ 5 MCG/KG/MIN 2.955 mls/hr IV.CONT TITRATE PRN Rx#:[id number] Diflucan 200 mg Premix Bag 200 200 / 200 ML @ 100 mls/hr IV.SIG Q24H [facility] Rx#:[id number] Vancomycin Inj 1,350 MG In NS 513.5 / 513.5 513.5 / 513.5 Inj 500 ML @ 250 mls/hr IV.SIG Q18H [facility] Rx#:[id number] Tube Feeding 298 / 298 0 / 0 Tube Irrigant 0 / 0 Water Bolus Amount 50 / 50 0 / 0 Output: Urine 0 / 0 Urine Amount (Catheter) 1750 / 1750 350 / 350 Condom 1750 / 1750 350 / 350 Straight 0 / 0 Other: Date of Last Bowel Movement 10/11/18 10/11/18 # Bowel Movements 0 0 # Incontinent Bowel Movements 1 Result Diagrams: 10/14/18 04:48 10/14/18 04:48 Objective Remarks: GEN: Ill-appearing, intubated and sedated HEENT: NCAT, ETT and OGT present NECK: No JVD, trachea midline CARDIO: S1-S2 normal no murmurs PULM: Breath sounds equal bilaterally. Few coarse rhonchi bilaterally. On lightening sedation becomes very tachypneic, asynchronous with the vent ABD/GI: Soft, non-tender, mildly distended, easily reducible umbilical hernia EXT/MSK: No peripheral edema. SKIN: Flushed, mildly diaphoretic. NEURO: RASS -3. Heavily sedated for vent synchrony. Slightly moves extremities to pain. 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 Neurology following, no seizure activity seen on EEG -Continue home dose of Topamax -CSF analysis- no organisms seen, 6 WBCs/ 4 RBCs/ clear, opening pressure 23, no growth -MRI brain with contrast 10/08 Subcortical T2 hyperintensity in the left frontoparietal region has markedly decreased in size. Rapid resolution more indicative of an inflammatory or ischemic process. Currently no lesion suggestive of toxoplasmosis. Treatment for toxo held for now -Antifungals as below CARDIO: -Hemodynamically stable -Echo performed on 05/02/18, showed EF 55-60%, mild TR, no vegetations -Continue IV Lasix PULM: -Continues to fail SBT due to severe agitation on sedation lowering, becomes asynchronous and hypoxic. Mental status will not permit extubation -Unable to vent wean or sedation wean due to severe ventilator synchrony and agitation -Plan for tracheostomy today, consent obtained -Vent bundle, Nebs, Vent day 8 -CT chest showing worsening multilobar bilateral infiltrates despite MRSA treatment -P ROSSY specimen sent yesterday, repeat BAL for PJP and other opportunistic infection F/E/N: -Continue free water flushes -Monitor Is and Os -Electrolyte replacement protocol -IV Lasix 40 mg daily due to positive fluid balance RENAL: -MIGUEL ANGEL, creat stable -Straight cath PRN -Renal ultrasound ordered for questionable infected cyst right kidney ID: -ID following (Dr. Toribio) * CSF negative thus far * MRSA pneumonia -Continue Diflucan, vancomycin, prophylactic azithromycin, add P ROSSY prophylaxis -BAL today and sent for opportunistic infections -Off pyrimethamine, sulfadiazine, leucovorin, per ID as MRI brain did not show any lesions suggestive of toxoplasmosis -CT chest abdomen and pelvis due to persistent fever rule out abscess- increasing bilateral pulmonary infiltrates, questionable infected cyst right kidney. -Discussed with ID PROPHY: -SCDs, SQH. Hold subcu heparin for tracheostomy today. -PPI Overall: This patient is critically ill and at very high risk for deterioration. He requires continued ICU level of care. Level 3 follow up
[2018-10-14 08:44] LABS: Platelet Morphology Normal (Normal)
[2018-10-14] MEDS ORDERED: Midazolam Inj 5 MG/ML 1 ML Vial IV.PUSH ONE (09:51)
[2018-10-14] MEDS ORDERED: fentaNYL Citrate Inj 250 MCG/5 ML Ampul IV.PUSH ONE (09:52)
[2018-10-14] MEDS ORDERED: Midazolam Inj 5 MG/ML 1 ML Vial ONE (10:06)
[2018-10-14] MEDS ORDERED: fentaNYL Citrate Inj 100 MCG/2 ML Ampul ONE ×2 (10:09)
--- NOTE | 2018-10-14 10:11 | US ---
EXAM DATE: 10/14/2018 9:47 AM EST AGE/SEX: 48 years / Male INDICATIONS: Evaluate right renal cyst; possible infection. CLINICAL DATA: This is the patient's initial encounter. Patient reports that signs and symptoms have been present for 1 day and indicates a pain score of Nonresponsive. MEDICAL/SURGICAL HISTORY: . AIDS. Anxiety. Bipolar disorder. COPD. Depression. Hep C. MRSA. HIV . Neuropathy. Pneumocystosis pneumonia. PTSD. None. COMPARISON: [facility] [place]EL[place]/O CONTRAST, 09/26/2018. . MEASUREMENTS: Right Kidney:__14.5 x 6.4 x 6.6 cm Left Kidney:__14.0 x 6.0 x 6.8 cm FINDINGS: Right Kidney: The examination demonstrates 2 small simple cysts within the renal cortex. These measur e 2.6 x 2.2 x 1.9 cm and 1.8 x 1.8 x 2.6 cm. There is a small septation seen in the more inferior cys t. There is no hydronephrosis. The cortex appears of adequate thickness. Left Kidney: The examination demonstrates a 3.3 x 2.0 x 2.4 cm cyst within the midpole. There is no h ydronephrosis. The cortex appears of adequate thickness. Bladder: Within normal limits given the degree of distension. Other: None. CONCLUSION: 1. Small cyst within the kidneys bilaterally. There is a septation within the inferior renal cyst on the right. 2. No findings to indicate renal obstruction identified. Electronically signed by: Prem Reynolds MD 10/14/2018 10:10 AM EST
[2018-10-14] MEDS: fentaNYL 10 mcg/mL Premix Drip 2,500 MCG/250 ML BAG IV.SIG PRN (10:51)
--- NOTE | 2018-10-14 11:32 | P.PNID ---
Subjective Remarks: Patient is currently intubated and on the ventilator. On 100% FiO2. Sedated. Nonresponsive. Has temperature elevation. Tracheostomy and bronchoscopy planned. PCP test ordered yesterday. CSF culture has no growth. Csf toxo, HSV, cryptococcal antigen is negative. This is a 48-year-old white male who has AIDS. The patient was recently admitted to the hospital and treated for headaches. He received empiric antibiotic treatment. He refused a lumbar puncture and therefore, it was difficult to determine the cause of his headaches. MRI did not show any significant lesions. The patient presented to the emergency department with seizure. His IgM titer for toxoplasma was negative, but the IgG was positive. The patient's toxicology screen is positive for cocaine and cannabinoids. Past Medical History: PAST MEDICAL HISTORY: Depression, COPD, bipolar disorder, anxiety disorder, hepatitis C, neuropathy, HIV, posttraumatic stress disorder, history of MRSA. Allergies/Adverse Reactions: Allergies haloperidol Allergy (Severe, Verified 09/25/18 17:57) Swelling TONGUE SWELLING - Per pt. Objective Vital Signs 10/13/18 11:42 10/13/18 12:00 10/13/18 12:01 Temperature 99.7 F H Pulse Rate 87 83 Respiratory Rate 28 H 16 30 H Blood Pressure 112/74 112/74 Pulse Oximetry 95 94 L 97 10/13/18 12:30 10/13/18 13:00 10/13/18 13:30 Temperature Pulse Rate 82 82 80 Respiratory Rate 30 H 29 H 27 H Blood Pressure 110/58 L 111/57 L 112/58 L Pulse Oximetry 91 L 94 L 94 L 10/13/18 14:00 10/13/18 14:30 10/13/18 15:00 Temperature Pulse Rate 83 82 84 Respiratory Rate 26 H 27 H 28 H Blood Pressure 112/56 L 109/59 L 112/58 L Pulse Oximetry 94 L 93 L 93 L 10/13/18 15:27 10/13/18 15:30 10/13/18 16:00 Temperature 101.1 F H Pulse Rate 84 85 Respiratory Rate 27 H 27 H 31 H Blood Pressure 108/55 L 108/60 Pulse Oximetry 95 92 L 94 L 10/13/18 16:30 10/13/18 17:00 10/13/18 17:30 Temperature Pulse Rate 84 85 85 Respiratory Rate 26 H 27 H 27 H Blood Pressure 110/60 108/57 L 110/61 Pulse Oximetry 94 L 94 L 94 L 10/13/18 18:00 10/13/18 18:30 10/13/18 19:00 Temperature Pulse Rate 85 85 85 Respiratory Rate 28 H 26 H 26 H Blood Pressure 108/55 L 109/57 L 111/58 L Pulse Oximetry 93 L 94 L 94 L 10/13/18 19:30 10/13/18 20:00 10/13/18 20:20 Temperature 102.0 F H Pulse Rate 85 85 Respiratory Rate 26 H 26 H Blood Pressure 110/55 L 109/60 Pulse Oximetry 94 L 94 L 98 10/13/18 20:45 10/13/18 21:00 10/13/18 21:05 Temperature Pulse Rate 92 H 89 87 Respiratory Rate 34 H 31 H 28 H Blood Pressure 142/60 H 117/52 L 110/58 L Pulse Oximetry 96 89 L 99 10/13/18 21:30 10/13/18 22:00 10/13/18 22:06 Temperature Pulse Rate 86 86 Respiratory Rate 27 H 28 H 31 H Blood Pressure 111/58 L 111/57 L Pulse Oximetry 98 99 96 10/13/18 22:30 10/13/18 23:00 10/13/18 23:30 Temperature Pulse Rate 87 87 88 Respiratory Rate 28 H 28 H 26 H Blood Pressure 114/59 L 113/55 L 113/57 L Pulse Oximetry 92 L 96 99 10/14/18 00:00 10/14/18 00:30 10/14/18 00:40 Temperature 102.6 F H 102.8 F H Pulse Rate 87 86 Respiratory Rate 25 H 25 H Blood Pressure 110/59 L 109/59 L Pulse Oximetry 100 100 10/14/18 00:41 10/14/18 01:00 10/14/18 01:30 Temperature Pulse Rate 86 85 Respiratory Rate 24 25 H 26 H Blood Pressure 107/57 L 107/55 L Pulse Oximetry 100 99 97 10/14/18 02:00 10/14/18 02:03 10/14/18 03:00 Temperature Pulse Rate 85 85 78 Respiratory Rate 10 L 32 H 27 H Blood Pressure 96/53 L Pulse Oximetry 97 96 97 10/14/18 03:13 10/14/18 03:30 10/14/18 04:00 Temperature 98.6 F Pulse Rate 77 75 72 Respiratory Rate 25 H 25 H 23 Blood Pressure 103/58 L 106/60 106/62 Pulse Oximetry 99 100 100 10/14/18 04:02 10/14/18 04:30 10/14/18 05:00 Temperature Pulse Rate 70 72 Respiratory Rate 22 26 H 26 H Blood Pressure 103/57 L 104/58 L Pulse Oximetry 100 97 95 10/14/18 08:00 10/14/18 08:28 10/14/18 08:47 Temperature 99.4 F 99.4 F Pulse Rate 72 71 Respiratory Rate 18 25 H 25 H Blood Pressure 100/55 L 105/65 Pulse Oximetry 97 98 97 10/14/18 09:57 10/14/18 10:23 Temperature 100 F H Pulse Rate 75 Respiratory Rate 26 H 25 H Blood Pressure 112/66 Pulse Oximetry 95 96 Intake & Output 10/13/18 10/14/18 10/14/18 18:59 06:59 18:59 Intake Total 1361.5 / 1361.5 700 / 700 763.5 / 763.5 Output Total 1750 / 1750 350 / 350 Balance -388.5 / -388.5 350 / 350 763.5 / 763.5 Weight 105.6 kg Intake: IV 1013.5 / 1013.5 700 / 700 763.5 / 763.5 Precedex Inj 1,000 MCG In NS 250 / 250 Inj 240 ML @ 0.2 MCG/KG/HR 4.92 mls/hr IV.CONT TITRATE PRN Rx# :[id number] Diprivan 1000 mg/100 ml Inj 1, 300 / 300 400 / 400 000 mg In 100 ml @ 5 MCG/KG/MIN 2.955 mls/hr IV.CONT TITRATE PRN Rx#:[id number] Diflucan 200 mg Premix Bag 200 200 / 200 ML @ 100 mls/hr IV.SIG Q24H MINOR Rx#:[id number] Vancomycin Inj 1,350 MG In NS 513.5 / 513.5 513.5 / 513.5 Inj 500 ML @ 250 mls/hr IV.SIG Q18H MINOR Rx#:[id number] fentaNYL 10 mcg/mL Premix Drip 250 / 250 2,500 mcg In 250 ml @ 50 MCG/HR 5 mls/hr IV.SIG TITRATE PRN Rx #:[id number] Tube Feeding 298 / 298 0 / 0 Tube Irrigant 0 / 0 Water Bolus Amount 50 / 50 0 / 0 Intake (Blood Product) Amt 0 / 0 Prepooled Plts Leukoreduced 5d 0 / 0 Unit [id number] Prepooled Plts Leukoreduced 5d 0 / 0 Unit [id number] Output: Urine 0 / 0 Urine Amount (Catheter) 1750 / 1750 350 / 350 Condom 1750 / 1750 350 / 350 Straight 0 / 0 Other: Date of Last Bowel Movement 10/11/18 10/11/18 10/11/18 # Bowel Movements 0 0 # Incontinent Bowel Movements 1 10/12/18 22:55 Blood - Peripheral Aerobic Blood Culture - Preliminary No growth in 2 days 10/12/18 22:55 Blood - Peripheral Anaerobic Blood Culture - Preliminary No growth in 2 days 10/12/18 22:50 Blood - Peripheral Aerobic Blood Culture - Preliminary No growth in 2 days 10/12/18 22:50 Blood - Peripheral Anaerobic Blood Culture - Preliminary No growth in 2 days 10/09/18 12:25 Blood - Peripheral Aerobic Blood Culture - Final No growth in 5 days 10/09/18 12:25 Blood - Peripheral Anaerobic Blood Culture - Final No growth in 5 days 10/09/18 12:20 Blood - Peripheral Aerobic Blood Culture - Final No growth in 5 days 10/09/18 12:20 Blood - Peripheral Anaerobic Blood Culture - Final No growth in 5 days 10/12/18 21:50 Catheterized Urine Urine Culture - Preliminary No growth in 24 hours 10/13/18 16:00 Sputum - Endotracheal Gram Stain - Pending 10/13/18 16:00 Sputum - Endotracheal Sputum Culture - Pending 10/13/18 04:28 Sputum - Endotracheal Gram Stain - Final 10/13/18 04:28 Sputum - Endotracheal Sputum Culture - Pending 10/07/18 08:00 Blood - Peripheral Aerobic Blood Culture - Final No growth in 5 days 10/07/18 08:00 Blood - Peripheral Anaerobic Blood Culture - Final No growth in 5 days 10/07/18 08:05 Blood - Peripheral Aerobic Blood Culture - Final No growth in 5 days 10/07/18 08:05 Blood - Peripheral Anaerobic Blood Culture - Final No growth in 5 days 10/08/18 15:20 Lumbar Puncture Gram Stain - Final 10/08/18 15:20 Lumbar Puncture CSF Culture - Final No growth in 72 hours Lab - Hematology Results 10/13/18 10/14/18 04:55 04:48 WBC 3.0 L 3.8 L RBC 2.78 L 2.25 L Hgb 9.2 L 7.5 L Hct 26.6 L 22.1 L MCV 95.7 98.3 MCH 33.1 33.1 MCHC 34.6 33.7 RDW 15.7 16.3 Plt Count 52 L 61 L MPV 11.8 H 11.5 H Prelim Diff (Auto) Slide review pending Slide review pending Neut % (Auto) 69.4 68.8 Lymph % (Auto) 15.4 18.5 [place] % (Auto) 12.4 H 10.0 H Eos % (Auto) 2.2 2.2 Baso % (Auto) 0.6 0.5 Neut # (Auto) 2.1 2.6 Lymph # (Auto) 0.5 L 0.7 L [place] # (Auto) 0.4 0.4 Eos # (Auto) 0.1 0.1 Baso # (Auto) 0.0 0.0 WBC Differential Manual diff final . Diff Scan Auto diff confirmed Seg Neuts % (Manual) 62 Band Neuts % (Manual) 22 H Lymphocytes % (Manual) 11 Monocytes % (Manual) 4 Basophils % (Manual) 1 Abs Neuts (Manual) 2.5 Differential Comment . . Toxic Granulation 1+ H Platelet Estimate Low L Low L Platelet Morphology Enlarged H Normal Tear Drop Cells 1+ H Lab - Chemistry Results 10/13/18 10/14/18 04:55 04:48 Sodium 146 H 146 H Potassium 3.9 3.6 Chloride 116 H 114 H Carbon Dioxide 23.8 21.6 Anion Gap 6 10 BUN 23 H 26 H Creatinine 1.27 1.18 Estimated GFR 60 L 66 L Random Glucose 107 H 97 Calcium 7.5 L 7.9 L Phosphorus 3.1 3.4 Magnesium 2.3 2.2 Total Bilirubin 1.2 H 1.1 H AST 143 H 151 H ALT 29 32 Alkaline Phosphatase 172 H 212 H Total Protein 6.4 6.7 Albumin 1.5 L 1.5 L Imaging: ITS Impressions Head MRI 10/08/18 00:00 CONCLUSION: 1. Subcortical T2 hyperintensity in the left frontoparietal region has markedly decreased in size. Rapid resolution would be more indicative of an inflammatory or ischemic process. 2. No characteristic findings of acute infarct, hemorrhage or mass. Lumbar Puncture Fluoroscopy 10/08/18 00:00 CONCLUSION: 1. Uncomplicated fluoroscopically guided lumbar puncture. Abdomen/Pelvis CT 10/13/18 00:00 CONCLUSION: 1. Bilateral renal cysts. A new, broad area of apparent induration laterally of the mid zone to lower pole of the right kidney. This is nonspecific. Differential would include an infected and/or ruptured cyst. Otherwise, I don't see a significant change or any evidence of infection within the abdomen or pelvis. 2. Splenomegaly again noted. 3. Small nonobstructing stones of the left kidney are unchanged. 4. Umbilical hernia containing fat only and. Chest CT 10/13/18 00:00 CONCLUSION: Bilateral patchy dense airspace consolidation, mid and lower lung predominant on the right, mid and upper lung predominant on the left. These are nonspecific but new and presumably infectious or inflammatory. Head CT 10/13/18 00:00 CONCLUSION: No acute intracranial abnormality is demonstrated. . Chest X-Ray 10/13/18 06:00 CONCLUSION: Bilateral mostly basilar and perihilar airspace disease similar to October 11. Support apparatus unchanged. Abdomen/Bladder Ultrasound 10/14/18 00:00 CONCLUSION: 1. Small cyst within the kidneys bilaterally. There is a septation within the inferior renal cyst on the right. 2. No findings to indicate renal obstruction identified. Physical Exam: PHYSICAL EXAMINATION: GENERAL: Patient intubated. Nonresponsive. HEENT: Head is atraumatic. No icterus. NECK: Supple. No swelling or adenopathy. LUNGS: Bibasilar rhonchi. HEART: Regular S1 and S2 without murmurs. ABDOMEN: Decreased bowel sounds. Soft. No mass palpable. EXTREMITIES: No clubbing, cyanosis or edema. SKIN: No rash. NEUROLOGIC: Unable to assess. PSYCHIATRIC: Unable to assess. Assessment and Plan - Plan IMPRESSION: 1. Seizure in patient with acquired immunodeficiency syndrome. 2. Altered mental status. ? etiology. 3. Acute encephalopathy. 4. Fever. ? drug fever vs infection. 5. Possible sepsis. 6. MRSA pneumonia. 7. Acute respiratory failure. Difficult to extubate. RECOMMENDATIONS: 1. Continue Diflucan. 2. Continue the prophylactic azithromycin for MAC. 3. Follow serum PCP. Send bronchoscopy sample for PCP. 4. Continue vancomycin. Pharmacy to monitor. 5. Add Bactrim for PCP pneumonia treatment. 6. Monitor the temperature.
--- NOTE | 2018-10-14 11:37 | P.PNPAL ---
Reason for Visit Reason for visit: a. To assist with evaluation and management of symptoms including: pain, confusion, dyspnea b. To assist medical decision maker(s) with: better understanding of current medical conditions; weighing benefits/burdens of medical treatment options; making medical treatment decisions. Subjective Subjective/Interval History: Mr. Morgan is a 48yo male who presented to [facility] via EMS with complaints of seizures and fever. His sister, which whom he lives with reports that she was awoken by her daughter stating that the patient was seizing uncontrollably. She also states that approximately 2 days ago he took his entire bottle of Percocet though she was unable to tell how many pills were in the bottle. She states since then his mental status has been declining, he has been unable to finish sentences and has been noted to be urinating on himself. His past medical history is significant for AIDS, COPD, Hepatitis C, Bipolar disorder, PTSD with remote suicide attempts, and neuropathy. Of note the patient was just discharged from [facility] on 10/05/18. The patient has a history of admission related to AIDS/HIV and related sequelae. His last CD4 count was noted to be 29 on 04/2018. The patient also has a history of non compliance with his antiretroviral therapy as well as other medications. Upon arrival to the emergency room by the patient was confused, tachycardic, and with a core temperature of 101.0. He had waxing and waning mentation and required increasing oxygen support. He was placed on BiPAP 12/5 40% FiO2. Due to his rapid decline the patient was admitted to the MICU for further evaluation and treatment. Neurology and infectious disease consults are pending. Referral was also placed to interventional radiology for LP puncture as there is concern for meningitis and the patient has previously declined further workup. 10/14/18 Palliative care continues to follow with patient for symptom management and continuing conversation for goals of medical care. Patient is status post bedside trach today. He A procedure well. He continues on 100% FiO2. Previous attempts for sedation weaning were not tolerated particularly with Precedex. Patient continues to spike fevers on and off as high as 102. He is currently 100.[address] abdominal/pelvis done 10/13/18 showed a questionable area could possibly represent an infected renal cyst. Patient was positive for MRSA in the sputum done 10/08/18. Patient seen and examined in room today. Sedated with 30 mcg of propofol and 100 mcg of fentanyl. Scattered rhonchi heard throughout all lung banuelos. Prognosis remains guarded. Today's clinical data revealed: * Wbc 3.8, Hgb 7.5, Hct 22.1, plt 61 * Na 146, K+ 3.6, Cl 114, CO2 21.6, BUN 26, creatinine 1.18, glucose 97 * total bili 1.1, AST 151, ALT 32, alkaline phosphatase 212, albumin 1.5 Family/Friend Interactions: Was able to update patient's sister Beata Morgan patient's clinical course thus far. Discussed that while he tolerated the tracheostomy well, he will continue have a prolonged vent weaning process. We also discussed given his poor clinical baseline, and susceptibility to multiple infections his overall prognosis remains guarded. We also discussed he is currently not receiving his antiretroviral therapy as he is clinically too ill to do so. She stated she was unaware that he had not been receiving it during this hospitalization. We discussed that he had been off of this medication for some time, at least since August and how he already had a decreased CD4 count at that time. This fact alone predisposes him to increased risk of infection and related sequelae. She verbalized understanding all stated that she appreciates continued update. She verbalized that she wants to continue aggressive treatment but that she is having difficulty understanding when enough is enough. We did discuss the patient's wishes as best we can discern from his previous discussions and/or believes. She still feels that he ultimately has not ready to he just was severely depressed. At this point we will continue with aggressive treatment as much as the patient can tolerate. 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 Significant change in goals:: No significant changes in goals of care. Objective Vital Signs: Vital Signs 10/13/18 11:42 10/13/18 12:00 10/13/18 12:01 Temperature 99.7 F H Pulse Rate 87 83 Respiratory Rate 28 H 16 30 H Blood Pressure 112/74 112/74 Pulse Oximetry 95 94 L 97 10/13/18 12:30 10/13/18 13:00 10/13/18 13:30 Temperature Pulse Rate 82 82 80 Respiratory Rate 30 H 29 H 27 H Blood Pressure 110/58 L 111/57 L 112/58 L Pulse Oximetry 91 L 94 L 94 L 10/13/18 14:00 10/13/18 14:30 10/13/18 15:00 Temperature Pulse Rate 83 82 84 Respiratory Rate 26 H 27 H 28 H Blood Pressure 112/56 L 109/59 L 112/58 L Pulse Oximetry 94 L 93 L 93 L 10/13/18 15:27 10/13/18 15:30 10/13/18 16:00 Temperature 101.1 F H Pulse Rate 84 85 Respiratory Rate 27 H 27 H 31 H Blood Pressure 108/55 L 108/60 Pulse Oximetry 95 92 L 94 L 10/13/18 16:30 10/13/18 17:00 10/13/18 17:30 Temperature Pulse Rate 84 85 85 Respiratory Rate 26 H 27 H 27 H Blood Pressure 110/60 108/57 L 110/61 Pulse Oximetry 94 L 94 L 94 L 10/13/18 18:00 10/13/18 18:30 10/13/18 19:00 Temperature Pulse Rate 85 85 85 Respiratory Rate 28 H 26 H 26 H Blood Pressure 108/55 L 109/57 L 111/58 L Pulse Oximetry 93 L 94 L 94 L 10/13/18 19:30 10/13/18 20:00 10/13/18 20:20 Temperature 102.0 F H Pulse Rate 85 85 Respiratory Rate 26 H 26 H Blood Pressure 110/55 L 109/60 Pulse Oximetry 94 L 94 L 98 10/13/18 20:45 10/13/18 21:00 10/13/18 21:05 Temperature Pulse Rate 92 H 89 87 Respiratory Rate 34 H 31 H 28 H Blood Pressure 142/60 H 117/52 L 110/58 L Pulse Oximetry 96 89 L 99 10/13/18 21:30 10/13/18 22:00 10/13/18 22:06 Temperature Pulse Rate 86 86 Respiratory Rate 27 H 28 H 31 H Blood Pressure 111/58 L 111/57 L Pulse Oximetry 98 99 96 10/13/18 22:30 10/13/18 23:00 10/13/18 23:30 Temperature Pulse Rate 87 87 88 Respiratory Rate 28 H 28 H 26 H Blood Pressure 114/59 L 113/55 L 113/57 L Pulse Oximetry 92 L 96 99 10/14/18 00:00 10/14/18 00:30 10/14/18 00:40 Temperature 102.6 F H 102.8 F H Pulse Rate 87 86 Respiratory Rate 25 H 25 H Blood Pressure 110/59 L 109/59 L Pulse Oximetry 100 100 10/14/18 00:41 10/14/18 01:00 10/14/18 01:30 Temperature Pulse Rate 86 85 Respiratory Rate 24 25 H 26 H Blood Pressure 107/57 L 107/55 L Pulse Oximetry 100 99 97 10/14/18 02:00 10/14/18 02:03 10/14/18 03:00 Temperature Pulse Rate 85 85 78 Respiratory Rate 10 L 32 H 27 H Blood Pressure 96/53 L Pulse Oximetry 97 96 97 10/14/18 03:13 10/14/18 03:30 10/14/18 04:00 Temperature 98.6 F Pulse Rate 77 75 72 Respiratory Rate 25 H 25 H 23 Blood Pressure 103/58 L 106/60 106/62 Pulse Oximetry 99 100 100 10/14/18 04:02 10/14/18 04:30 10/14/18 05:00 Temperature Pulse Rate 70 72 Respiratory Rate 22 26 H 26 H Blood Pressure 103/57 L 104/58 L Pulse Oximetry 100 97 95 10/14/18 08:00 10/14/18 08:28 10/14/18 08:47 Temperature 99.4 F 99.4 F Pulse Rate 72 71 Respiratory Rate 18 25 H 25 H Blood Pressure 100/55 L 105/65 Pulse Oximetry 97 98 97 10/14/18 09:57 10/14/18 10:23 Temperature 100 F H Pulse Rate 75 Respiratory Rate 26 H 25 H Blood Pressure 112/66 Pulse Oximetry 95 96 Intake & Output 10/13/18 10/14/18 10/14/18 18:59 06:59 18:59 Intake Total 1361.5 / 1361.5 700 / 700 763.5 / 763.5 Output Total 1750 / 1750 350 / 350 Balance -388.5 / -388.5 350 / 350 763.5 / 763.5 Weight 105.6 kg Intake: IV 1013.5 / 1013.5 700 / 700 763.5 / 763.5 Precedex Inj 1,000 MCG In NS 250 / 250 Inj 240 ML @ 0.2 MCG/KG/HR 4.92 mls/hr IV.CONT TITRATE PRN Rx# :[id number] Diprivan 1000 mg/100 ml Inj 1, 300 / 300 400 / 400 000 mg In 100 ml @ 5 MCG/KG/MIN 2.955 mls/hr IV.CONT TITRATE PRN Rx#:[id number] Diflucan 200 mg Premix Bag 200 200 / 200 ML @ 100 mls/hr IV.SIG Q24H MINOR Rx#:[id number] Vancomycin Inj 1,350 MG In NS 513.5 / 513.5 513.5 / 513.5 Inj 500 ML @ 250 mls/hr IV.SIG Q18H MINOR Rx#:[id number] fentaNYL 10 mcg/mL Premix Drip 250 / 250 2,500 mcg In 250 ml @ 50 MCG/HR 5 mls/hr IV.SIG TITRATE PRN Rx #:[id number] Tube Feeding 298 / 298 0 / 0 Tube Irrigant 0 / 0 Water Bolus Amount 50 / 50 0 / 0 Intake (Blood Product) Amt 0 / 0 Prepooled Plts Leukoreduced 5d 0 / 0 Unit [id number] Prepooled Plts Leukoreduced 5d 0 / 0 Unit [id number] Output: Urine 0 / 0 Urine Amount (Catheter) 1750 / 1750 350 / 350 Condom 1750 / 1750 350 / 350 Straight 0 / 0 Other: Date of Last Bowel Movement 10/11/18 10/11/18 10/11/18 # Bowel Movements 0 0 # Incontinent Bowel Movements 1 Physical Exam: CONSTITUTIONAL/GENERAL: Intubated and sedated, status post bedside tracheostomy TUBES/LINES/DRAINS: PIV, condom cath, soft restraints, midline trach SKIN: No jaundice, rashes, or lesions. Ecchymoses on upper extremities. Scabbing wound noted to left teran. Skin temperature warm. Not diaphoretic. EYES: Pupils equal and round and reactive. No scleral icterus. No injection or drainage. Fundi not examined. ENT: Unable to assess hearing due to clinical condition. Nose without bleeding or purulent drainage. Oral mucosa dry, with some peeling of the lips CARDIOVASCULAR: Sinus rhythm on telemetry. without murmurs, gallops, or rubs. Peripheral pulses symmetric. RESPIRATORY/CHEST: Symmetric, mechanically ventilated. Scattered rhonchi throughout. Diminished in the bases GASTROINTESTINAL: Abdomen soft, non-tender, slightly distended. No hepato- splenomegaly, or palpable masses. No guarding. Bowel sounds present. Periumbilical hernia noted GENITOURINARY: Without palpable bladder distension. Condom catheter in place. MUSCULOSKELETAL: Extremities without clubbing, cyanosis, or edema. NEUROLOGICAL: Sedated. Does not open eyes appear, does not follow commands questionable withdrawal to extremities. Pupils pinpoint and equal round reactive. PSYCHIATRIC: Unable to assess due to clinical condition Diagnostic Tests Laboratory: Laboratory Results - last 72 hr 10/08/18 10/08/18 10/11/18 15:20 15:20 19:45 WBC RBC Hgb Hct MCV MCH MCHC RDW Plt Count MPV Prelim Diff (Auto) Neut % (Auto) Lymph % (Auto) Harvey % (Auto) Eos % (Auto) Baso % (Auto) Neut # (Auto) Lymph # (Auto) Harvey # (Auto) Eos # (Auto) Baso # (Auto) WBC Differential Diff Scan Seg Neuts % (Manual) Band Neuts % (Manual) Lymphocytes % (Manual) Monocytes % (Manual) Eosinophils % (Manual) Basophils % (Manual) Abs Neuts (Manual) Differential Comment Toxic Granulation Platelet Estimate Platelet Morphology Tear Drop Cells Ovalocytes PT INR APTT Sodium Potassium 4.0 Chloride Carbon Dioxide Anion Gap BUN Creatinine Estimated GFR Random Glucose Calcium Prot Corrected Calcium Phosphorus Magnesium Total Bilirubin AST ALT Alkaline Phosphatase Total Protein Albumin Urine Color Urine Clarity Urine pH Ur Specific [place] Urine Protein Urine Glucose (UA) Urine Ketones Urine Occult Blood Urine Nitrate Urine Bilirubin Urine Urobilinogen Ur Leukocyte Esterase Urine RBC Urine WBC Urine Mucus Micro UA Comment Ur Microscopic Review Urine Culture Comments CSF Cryptococcus Ag Not detected CSF Herpes I DNA (PCR) Negative CSF Herpes II DNA (PCR) Negative CSF Toxoplasma IgG Ab <0.90 CSF Toxoplasma IgM Ab <0.80 Vancomycin Trough 9.7 Blood Type Antibody Screen MTS Gel Crossmatch Bld Prod Order Comment 10/12/18 10/12/18 10/12/18 05:09 05:09 21:50 WBC 3.0 L RBC 2.61 L Hgb 8.6 L Hct 24.7 L MCV 94.5 MCH 32.8 MCHC 34.7 RDW 16.0 Plt Count 43 L MPV 10.4 Prelim Diff (Auto) Slide review pending Neut % (Auto) 76.8 H Lymph % (Auto) 10.4 Harvey % (Auto) 9.5 H Eos % (Auto) 2.6 Baso % (Auto) 0.7 Neut # (Auto) 2.3 Lymph # (Auto) 0.3 L Harvey # (Auto) 0.3 Eos # (Auto) 0.1 Baso # (Auto) 0.0 WBC Differential Manual diff final Diff Scan Seg Neuts % (Manual) 68 Band Neuts % (Manual) 15 H Lymphocytes % (Manual) 8 L Monocytes % (Manual) 7 Eosinophils % (Manual) 1 Basophils % (Manual) 1 Abs Neuts (Manual) 2.5 Differential Comment . Toxic Granulation 1+ H Platelet Estimate Low L Platelet Morphology Normal Tear Drop Cells 1+ H Ovalocytes 1+ H PT INR APTT Sodium 145 Potassium 4.0 Chloride 117 H Carbon Dioxide 20.6 L Anion Gap 7 BUN 15 Creatinine 1.13 Estimated GFR 69 L Random Glucose 103 Calcium 7.3 L* Prot Corrected Calcium 7.7 L Phosphorus 2.7 Magnesium 2.3 Total Bilirubin 1.1 H AST 141 H ALT 26 Alkaline Phosphatase 143 H Total Protein 6.3 L Albumin 1.5 L Urine Color Valerie Urine Clarity Cloudy H Urine pH 5.0 Ur Specific [place] 1.019 Urine Protein 100 H Urine Glucose (UA) Negative Urine Ketones Negative Urine Occult Blood Moderate H Urine Nitrate Negative Urine Bilirubin Negative Urine Urobilinogen 4 or greater Ur Leukocyte Esterase Negative Urine RBC 131 H Urine WBC 8 H Urine Mucus Few H Micro UA Comment Cath-culture not ind Ur Microscopic Review Not Reportable Urine Culture Comments Cath-cult not ind CSF Cryptococcus Ag CSF Herpes I DNA (PCR) CSF Herpes II DNA (PCR) CSF Toxoplasma IgG Ab CSF Toxoplasma IgM Ab Vancomycin Trough Blood Type Antibody Screen MTS Gel Crossmatch Bld Prod Order Comment 10/13/18 10/13/18 10/13/18 04:55 04:55 04:55 WBC 3.0 L RBC 2.78 L Hgb 9.2 L Hct 26.6 L MCV 95.7 MCH 33.1 MCHC 34.6 RDW 15.7 Plt Count 52 L MPV 11.8 H Prelim Diff (Auto) Slide review pending Neut % (Auto) 69.4 Lymph % (Auto) 15.4 Harvey % (Auto) 12.4 H Eos % (Auto) 2.2 Baso % (Auto) 0.6 Neut # (Auto) 2.1 Lymph # (Auto) 0.5 L Harvey # (Auto) 0.4 Eos # (Auto) 0.1 Baso # (Auto) 0.0 WBC Differential Manual diff final Diff Scan Seg Neuts % (Manual) 62 Band Neuts % (Manual) 22 H Lymphocytes % (Manual) 11 Monocytes % (Manual) 4 Eosinophils % (Manual) Basophils % (Manual) 1 Abs Neuts (Manual) 2.5 Differential Comment . Toxic Granulation 1+ H Platelet Estimate Low L Platelet Morphology Enlarged H Tear Drop Cells 1+ H Ovalocytes PT INR APTT Sodium 146 H Potassium 3.9 Chloride 116 H Carbon Dioxide 23.8 Anion Gap 6 BUN 23 H Creatinine 1.27 Estimated GFR 60 L Random Glucose 107 H Calcium 7.5 L Prot Corrected Calcium Phosphorus 3.1 Magnesium 2.3 Total Bilirubin 1.2 H AST 143 H ALT 29 Alkaline Phosphatase 172 H Total Protein 6.4 Albumin 1.5 L Urine Color Urine Clarity Urine pH Ur Specific [place] Urine Protein Urine Glucose (UA) Urine Ketones Urine Occult Blood Urine Nitrate Urine Bilirubin Urine Urobilinogen Ur Leukocyte Esterase Urine RBC Urine WBC Urine Mucus Micro UA Comment Ur Microscopic Review Urine Culture Comments CSF Cryptococcus Ag CSF Herpes I DNA (PCR) CSF Herpes II DNA (PCR) CSF Toxoplasma IgG Ab CSF Toxoplasma IgM Ab Vancomycin Trough 27.6 H Blood Type Antibody Screen MTS Gel Crossmatch Bld Prod Order Comment 10/14/18 10/14/18 10/14/18 01:00 04:48 04:48 WBC 3.8 L RBC 2.25 L Hgb 7.5 L Hct 22.1 L MCV 98.3 MCH 33.1 MCHC 33.7 RDW 16.3 Plt Count 61 L MPV 11.5 H Prelim Diff (Auto) Slide review pending Neut % (Auto) 68.8 Lymph % (Auto) 18.5 Harvey % (Auto) 10.0 H Eos % (Auto) 2.2 Baso % (Auto) 0.5 Neut # (Auto) 2.6 Lymph # (Auto) 0.7 L Harvey # (Auto) 0.4 Eos # (Auto) 0.1 Baso # (Auto) 0.0 WBC Differential . Diff Scan Auto diff confirmed Seg Neuts % (Manual) Band Neuts % (Manual) Lymphocytes % (Manual) Monocytes % (Manual) Eosinophils % (Manual) Basophils % (Manual) Abs Neuts (Manual) Differential Comment . Toxic Granulation Platelet Estimate Low L Platelet Morphology Normal Tear Drop Cells Ovalocytes PT INR APTT Sodium 146 H Potassium 3.6 Chloride 114 H Carbon Dioxide 21.6 Anion Gap 10 BUN 26 H Creatinine 1.18 Estimated GFR 66 L Random Glucose 97 Calcium 7.9 L Prot Corrected Calcium Phosphorus 3.4 Magnesium 2.2 Total Bilirubin 1.1 H AST 151 H ALT 32 Alkaline Phosphatase 212 H Total Protein 6.7 Albumin 1.5 L Urine Color Urine Clarity Urine pH Ur Specific [place] Urine Protein Urine Glucose (UA) Urine Ketones Urine Occult Blood Urine Nitrate Urine Bilirubin Urine Urobilinogen Ur Leukocyte Esterase Urine RBC Urine WBC Urine Mucus Micro UA Comment Ur Microscopic Review Urine Culture Comments CSF Cryptococcus Ag CSF Herpes I DNA (PCR) CSF Herpes II DNA (PCR) CSF Toxoplasma IgG Ab CSF Toxoplasma IgM Ab Vancomycin Trough Blood Type Antibody Screen MTS Gel Crossmatch Bld Prod Order Comment 10/14/18 10/14/18 06:50 08:39 WBC RBC Hgb Hct MCV MCH MCHC RDW Plt Count MPV Prelim Diff (Auto) Neut % (Auto) Lymph % (Auto) Harvey % (Auto) Eos % (Auto) Baso % (Auto) Neut # (Auto) Lymph # (Auto) Harvey # (Auto) Eos # (Auto) Baso # (Auto) WBC Differential Diff Scan Seg Neuts % (Manual) Band Neuts % (Manual) Lymphocytes % (Manual) Monocytes % (Manual) Eosinophils % (Manual) Basophils % (Manual) Abs Neuts (Manual) Differential Comment Toxic Granulation Platelet Estimate Platelet Morphology Tear Drop Cells Ovalocytes PT 10.1 INR 1.0 APTT 32.8 H Sodium Potassium Chloride Carbon Dioxide Anion Gap BUN Creatinine Estimated GFR Random Glucose Calcium Prot Corrected Calcium Phosphorus Magnesium Total Bilirubin AST ALT Alkaline Phosphatase Total Protein Albumin Urine Color Urine Clarity Urine pH Ur Specific [place] Urine Protein Urine Glucose (UA) Urine Ketones Urine Occult Blood Urine Nitrate Urine Bilirubin Urine Urobilinogen Ur Leukocyte Esterase Urine RBC Urine WBC Urine Mucus Micro UA Comment Ur Microscopic Review Urine Culture Comments CSF Cryptococcus Ag CSF Herpes I DNA (PCR) CSF Herpes II DNA (PCR) CSF Toxoplasma IgG Ab CSF Toxoplasma IgM Ab Vancomycin Trough Blood Type A Positive Antibody Screen Negative MTS Gel Crossmatch See Detail Bld Prod Order Comment Result Diagrams: 10/14/18 04:48 10/14/18 04:48 Microbiology: Microbiology 10/12/18 22:55 Aerobic Blood Culture - Preliminary Blood - Peripheral No growth in 2 days Anaerobic Blood Culture - Preliminary No growth in 2 days 10/12/18 22:50 Aerobic Blood Culture - Preliminary Blood - Peripheral No growth in 2 days Anaerobic Blood Culture - Preliminary No growth in 2 days 10/09/18 12:25 Aerobic Blood Culture - Final Blood - Peripheral No growth in 5 days Anaerobic Blood Culture - Final No growth in 5 days 10/09/18 12:20 Aerobic Blood Culture - Final Blood - Peripheral No growth in 5 days Anaerobic Blood Culture - Final No growth in 5 days 10/12/18 21:50 Urine Culture - Preliminary Catheterized Urine No growth in 24 hours 10/13/18 04:28 Gram Stain - Final Sputum - Endotracheal 10/07/18 08:00 Aerobic Blood Culture - Final Blood - Peripheral No growth in 5 days Anaerobic Blood Culture - Final No growth in 5 days 10/07/18 08:05 Aerobic Blood Culture - Final Blood - Peripheral No growth in 5 days Anaerobic Blood Culture - Final No growth in 5 days 10/08/18 15:20 Gram Stain - Final Lumbar Puncture CSF Culture - Final No growth in 72 hours Imaging: Impressions Abdomen/Pelvis CT 10/13/18 00:00 CONCLUSION: 1. Bilateral renal cysts. A new, broad area of apparent induration laterally of the mid zone to lower pole of the right kidney. This is nonspecific. Differential would include an infected and/or ruptured cyst. Otherwise, I don't see a significant change or any evidence of infection within the abdomen or pelvis. 2. Splenomegaly again noted. 3. Small nonobstructing stones of the left kidney are unchanged. 4. Umbilical hernia containing fat only and. Chest CT 10/13/18 00:00 CONCLUSION: Bilateral patchy dense airspace consolidation, mid and lower lung predominant on the right, mid and upper lung predominant on the left. These are nonspecific but new and presumably infectious or inflammatory. Head CT 10/13/18 00:00 CONCLUSION: No acute intracranial abnormality is demonstrated. . Chest X-Ray 10/13/18 06:00 CONCLUSION: Bilateral mostly basilar and perihilar airspace disease similar to October 11. Support apparatus unchanged. Abdomen/Bladder Ultrasound 10/14/18 00:00 CONCLUSION: 1. Small cyst within the kidneys bilaterally. There is a septation within the inferior renal cyst on the right. 2. No findings to indicate renal obstruction identified. Chest X-Ray 10/14/18 00:00 CONCLUSION: Tracheostomy in satisfactory position without evidence of pneumothorax. Procedures: 10/07/18 * Endotracheal intubation 10/08/18 * Lumbar puncture 10/14/18 * Bedside tracheostomy Assessment and Plan - Disease Oriented Problem List (1) Acute encephalopathy (2) Seizure (3) HIV (human immunodeficiency virus infection) - Symptom Scale (1) Dyspnea 0-10 Scale: Unable to quantify Comment: Currently managed by mechanical ventilation (2) Confusion 0-10 Scale: Unable to quantify (3) Pain 0-10 Scale: Unable to quantify Comment: Currently managed with IV fentanyl Pertinent Non-Medical Issues: Psychosocial: The patient has never been and has no children. His sister is only relative. He is currently unable to work and is living with his sister for the past 5 months Spiritual: Unknown Legal: Patient is currently unable to participate in his own medical decision making. The absence of written advanced directives, per [place] statutes his sister, Beata Morgan [phone] would be healthcare proxy Ethical issues impacting care: No known ethical issues impacting care at this time. Important Contacts: Beata Morgan, sister/HCP [phone] Prognosis: The patient has had an abrupt decline in cognitive ability. Functionally he was able to participate in his own ADLs and independent of ambulation prior to this admission. His sister states that he usually just stayed on the house sitting or laying. He has dealt with issues with drug and alcohol abuse for many years. He has multiple admissions concerning for sequelae related to his HIV/AIDS. He also has a concerning history for noncompliance with medical therapy. Given his complex medical history and associated comorbidities, he remains at high risk for further functional and cognitive decline. He remains at increased risk for continued infection, respiratory decline, and Code Status: Full Code Plan: * LEGAL DECISION MAKER -patient is currently unable to participate in his own healthcare decision making. In the absence of documented advanced directives, per [place] statutes decision making would fall to his Sister Beata Morgan [phone] by proxy * GOALS -no significant changes in goals of care. Was able to update patient's sister Beata Morgan patient's clinical course thus far. Discussed that while he tolerated the tracheostomy well, he will continue have a prolonged vent weaning process. We also discussed given his poor clinical baseline, and susceptibility to multiple infections his overall prognosis remains guarded. We also discussed he is currently not receiving his antiretroviral therapy as he is clinically too ill to do so. She stated she was unaware that he had not been receiving it during this hospitalization. We discussed that he had been off of this medication for some time, at least since August and how he already had a decreased CD4 count at that time. This fact alone predisposes him to increased risk of infection and related sequelae. She verbalized understanding all stated that she appreciates continued update. She verbalized that she wants to continue aggressive treatment but that she is having difficulty understanding when enough is enough. We did discuss the patient's wishes as best we can discern from his previous discussions and/or believes. She still feels that he ultimately has not ready to he just was severely depressed. At this point we will continue with aggressive treatment as much as the patient can tolerate. * CODE STATUS - FULL CODE * SYMPTOMS Pain - multifactorial including bedbound status, blood draws, invasive lines, tubes, procedures, etc. patient's home medication reflects oxycodone 10/325 mg p.o. every 4 hours as needed. In light of his reported abuse of this fluid use any pain medication judiciously. Currently managed with fentanyl GTT. Patient will most likely require some sort of opioid therapy once extubated. We will make further recommendations as case evolves. Confusion - most likely multifactorial including, illicit substance use, worsening respiratory status, and presumed infection. Defer to critical care to get over the acute phase. Once patient is more stable I would suggest roseanne romo to specifically opine on the patient's capacity to participate in healthcare decision making. It is unclear at this time if the patient was actually attempting suicide. It is also unclear if he is able to fully understand the implications of him refusing care and/or continuing with his medication regimens. No further accommodations at this time Dyspnea - currently mechanically ventilated. Continue with nebulizer treatments and good pulmonary toilet, though I'm not sure how much the patient will be able to participate. Should the patient require intubation, his sister would want to proceed with this. Defer to critical care. No further recognitions at this time Palliative care will continue to follow during hospital course as condition evolves, to assist patient/decision maker with understanding of medical conditions, weighing benefits/burdens of treatment options, for clarification of goals of treatment. Additionally will assist with any symptoms of palliative concern. Case discussed with Dr. Calzada and RN (Yvan) at bedside. Attestation Attestation: To help prompt me to consider important information that might be impacting today's encounter and assessment, information from prior notes written by myself or my colleagues may have been "brought forward" into today's note. My signature on this note, however, is an attestation that I personally performed the exam, history, and/or decision-making noted today, and, unless otherwise indicated, the interactions with patient, family, and staff as well as the review of records all occurred today. I also attest that the listed assessment and stated plan reflect my best clinical judgment today based on the combination of historical information, prior notes, and today's exam/ interactions. When time spent is documented, it refers only to time spent today by the signer, or if indicated, combined time spent today by collaborating physician/nurse practitioner.
--- NOTE | 2018-10-14 12:35 | P.PCN ---
Date of procedure: 10/14/18 Pre-op diagnosis: Respiratory failure inability to wean Post-op diagnosis: same Procedure: PROCEDURE Percutaneous tracheostomy SURGEONS: Dr. Calzada INDICATIONS Respiratory failure. Encephalopathy severe pneumonia inability to wean without tracheostomy PROCEDURE Patient's neck was prepped with the chlorhexidine contained within the Blue Rhino kit. Alfonso Lawler MD performed bronchoscopy. Trachea was palpated approximately two fingerbreadth above the sternal notch, anesthetized here with lidocaine with epinephrine solution supplied with the kit. A 1 cm vertical skin incision was made. The Angiocath was then inserted through the subcutaneous tissue into the trachea, and needle removed. Guide wire was inserted, and the Angiocath is removed. The dilator was then used and followed by Blue Rhino dilator up to the black liseth to dilate the tracheostomy. A size 8 cuffed tracheostomy tube was then placed without difficulty. Dr. Lawler performed a bronchoscopy again and confirmed placement. Tracheostomy tube was sutured in place. No significant bleeding and no immediate procedural complications. Postprocedure chest x-ray ordered. Due to thrombocytopenia 2 units of platelets were transfused prior to tracheostomy procedure. There was no significant bleeding Anesthesia: CHANDA, local Surgeon: Linette Calzada Estimated blood loss (mL): 2 Condition: critical Disposition: ICU
[2018-10-14] MEDS: FLUCONAZOLE 200 MG IV.SIG SCH (13:58)
--- NOTE | 2018-10-14 14:10 | XR ---
EXAM DATE: 10/14/2018 2:07 PM EST AGE/SEX: 48 years / Male INDICATIONS: S/p tracheostomy. CLINICAL DATA: This is the patient's initial encounter. Patient reports that signs and symptoms have been present for 1 week and indicates a pain score of Nonresponsive. MEDICAL/SURGICAL HISTORY: . HIV, COPD, hEP C, pneumocystitis, MRSA None. COMPARISON: [facility], CHEST 1V SINGLE AP, 10/13/2018. . FINDINGS: The tracheostomy is in satisfactory position. There is no pneumothorax identified. There are continued extensive pleural-parenchymal changes and cardiomegaly. CONCLUSION: Tracheostomy in satisfactory position without evidence of pneumothorax. Electronically signed by: Prem Reynolds MD 10/14/2018 2:08 PM EST
[2018-10-14] MEDS: WATER IV.SIG SCH ×4 (14:16→18:07)
[2018-10-14] MEDS: TRIMETHOPRIM IV.SIG SCH ×4 (14:16→18:07)
[2018-10-14] MEDS: SULFAMETHOX IV.SIG SCH ×4 (14:16→18:07)
[2018-10-14] MEDS: DEXTROSE 5% IV.SIG SCH ×4 (14:16→18:07)
[2018-10-14] MEDS ORDERED: Pharmacy Ordered Lab Info OTHER ONE (21:45)
[2018-10-14 23:28] LABS: ABG Base Excess -2.1 mmol/L (-2-2); ABG PCO2 32 mmHg (38-42); ABG PO2 62 mmHG (61-120)
--- NOTE | 2018-10-15 00:23 | XR ---
EXAM DATE: 10/14/2018 11:47 PM EST AGE/SEX: 48 years / Male INDICATIONS: Respiratory disease. CLINICAL DATA: This is the patient's subsequent encounter. Patient reports that signs and symptoms h ave been present for 1 week and indicates a pain score of 0/10. MEDICAL/SURGICAL HISTORY: . HIV, COPD, hEP C, pneumocystitis, MRSA None. COMPARISON: [facility], CHEST 1V SINGLE AP, 10/14/2018. . FINDINGS: Tracheostomy tube in good position. NG enters stomach. Perihilar and basilar airspace consolidation s imilar to earlier exam. No pneumothorax. CONCLUSION: Placement of nasogastric tube. Bilateral lung consolidation relatively stable compared with earlier e xam. No pneumothorax. Electronically signed by: Isael Tian MD 10/15/2018 12:21 AM EST
[2018-10-15] MEDS: Propofol 1000 mg/100 ml Inj 1,000 MG/100 ML BOTTLE IV.CONT PRN ×7 (00:37→20:28)
[2018-10-15] MEDS: Dexmedetomidine Inj 1,000 MCG in Sodium Chlor 0.9% Inj 240 ML IV.CONT PRN ×5 (01:37→22:00)
[2018-10-15] MEDS: DEXTROSE 5% IV.SIG SCH ×8 (01:57→17:30)
[2018-10-15] MEDS: WATER IV.SIG SCH ×8 (01:57→17:30)
[2018-10-15] MEDS: TRIMETHOPRIM IV.SIG SCH ×8 (01:57→17:30)
[2018-10-15] MEDS: SULFAMETHOX IV.SIG SCH ×8 (01:57→17:30)
[2018-10-15] MEDS: Oral Hygiene Kit OROPHARYNG SCH ×4 (02:13→15:10)
[2018-10-15 05:10] LABS: Baso % (Auto) 0.5 % (0.0-2.0); Eos # (Auto) 0.1 th/mm3 (0.0-0.4); Eos % (Auto) 3.8 % (0.0-4.0); Hematocrit 24.3 % (39.0-51.0); Hemoglobin 8.2 gm/dL (13.0-17.0); Lymph # (Auto) 0.3 th/mm3 (1.0-4.8); Lymph % (Auto) 10.9 % (9.0-44.0); Mean Corpuscular HGB Conc 33.8 % (32.0-36.0); Mean Corpuscular Hemoglobin 32.8 pg (27.0-34.0); Mean Corpuscular Volume 96.9 fL (80.0-100.0); Mean Platelet Volume 10.3 fL (7.0-11.0); Mono # (Auto) 0.2 th/mm3 (0.0-0.9); Mono % (Auto) 8.1 % (0.0-8.0); Neut % (Auto) 76.7 % (16.0-70.0); Platelet Count 74 th/mm3 (150-450); Red Blood Count 2.51 mil/mm3 (4.50-5.90); Red Cell Distribution Width 15.9 % (11.6-17.2); White Blood Count 2.6 th/mm3 (4.0-11.0)
[2018-10-15] MEDS: fentaNYL 10 mcg/mL Premix Drip 2,500 MCG/250 ML BAG IV.SIG PRN ×2 (05:10→20:28)
--- NOTE | 2018-10-15 05:28 | XR ---
EXAM DATE: 10/15/2018 4:51 AM EST AGE/SEX: 48 years / Male INDICATIONS: Short of breath. CLINICAL DATA: This is the patient's subsequent encounter. Patient reports that signs and symptoms h ave been present for 1 week and indicates a pain score of 0/10. MEDICAL/SURGICAL HISTORY: . HIV, COPD, hEP C, pneumocystitis, MRSA. Non-responsive. COMPARISON: [facility], CHEST 1V SINGLE AP, 10/14/2018. . FINDINGS: Tracheostomy in good position. NG enters stomach. Bilateral airspace consolidation similar to prior e xam. No new infiltrate. No pneumothorax. CONCLUSION: Stable bilateral airspace disease. Tracheostomy and NG tube unchanged. Electronically signed by: Isael Tian MD 10/15/2018 5:27 AM EST
[2018-10-15 05:39] LABS: Albumin 1.5 g/dL (3.4-5.0); Anion Gap 9 meq/L (5-15); Aspartate Aminotransferase 120 U/L (15-37); Blood Urea Nitrogen 22 mg/dL (7-18); Calcium 7.6 mg/dL (8.5-10.1); Carbon Dioxide 22.4 meq/L (21.0-32.0); Chloride 112 meq/L (98-107); Glomerular Filtration Rate 85 mL/min (>89); Glucose,Random 96 mg/dL (74-106); Magnesium 1.9 mg/dL (1.5-2.5); Potassium 3.6 meq/L (3.5-5.1); Sodium 143 meq/L (136-145)
[2018-10-15 05:40] LABS: Alanine Aminotransferase 31 U/L (12-78); Phosphorus 3.4 mg/dL (2.5-4.9)
[2018-10-15 05:42] LABS: Alkaline Phosphatase 229 U/L (45-117); Total Protein 6.7 g/dL (6.4-8.2)
[2018-10-15] MEDS: Chlorhexidine 0.12% Oral Kit 15 ML UDC OROPHARYNG SCH ×2 (07:46→20:30)
[2018-10-15] MEDS: Famotidine PF Inj 20 MG/2 ML Vial IV.PUSH SCH ×2 (08:01→20:30)
[2018-10-15] MEDS: Beneprotein Powder Packet G-TUBE SCH ×3 (08:01→17:30)
[2018-10-15] MEDS: Topiramate 25 MG Tablet PO SCH ×2 (08:01→20:30)
[2018-10-15] MEDS: Senna/Docusate Sodium 8.6/50 MG Tablet PO SCH ×2 (08:02→20:30)
[2018-10-15] MEDS: Famotidine 20 MG Tablet PO SCH ×2 (08:02→20:31)
[2018-10-15 08:08] LABS: Tear Drop Cells 2+
[2018-10-15] MEDS: FLUCONAZOLE 200 MG IV.SIG SCH (12:10)
[2018-10-15] MEDS: Vancomycin Inj 1,350 MG in Sodium Chlor 0.9% Inj 500 ML IV.SIG SCH (15:10)
--- NOTE | 2018-10-15 15:41 | P.PNID ---
Subjective Remarks: Patient is currently intubated and on the ventilator. Sedated. Nonresponsive. Temperature still elevated. Copious oral secretions noted. Sputum smear negative for PCP. CSF culture has no growth. Csf toxo, HSV, cryptococcal antigen is negative. This is a 48-year-old white male who has AIDS. The patient was recently admitted to the hospital and treated for headaches. He received empiric antibiotic treatment. He refused a lumbar puncture and therefore, it was difficult to determine the cause of his headaches. MRI did not show any significant lesions. The patient presented to the emergency department with seizure. His IgM titer for toxoplasma was negative, but the IgG was positive. The patient's toxicology screen is positive for cocaine and cannabinoids. Past Medical History: PAST MEDICAL HISTORY: Depression, COPD, bipolar disorder, anxiety disorder, hepatitis C, neuropathy, HIV, posttraumatic stress disorder, history of MRSA. Allergies/Adverse Reactions: Allergies haloperidol Allergy (Severe, Verified 09/25/18 17:57) Swelling TONGUE SWELLING - Per pt. Objective Vital Signs 10/14/18 16:00 10/14/18 16:14 10/14/18 17:45 Temperature 98.6 F Pulse Rate 68 71 Respiratory Rate 20 25 H 23 Blood Pressure 105/58 L 105/61 Pulse Oximetry 100 100 100 10/14/18 17:50 10/14/18 17:52 10/14/18 17:55 Temperature Pulse Rate 71 72 Respiratory Rate 23 27 H Blood Pressure 104/58 L 104/63 Pulse Oximetry 100 97 94 L 10/14/18 18:00 10/14/18 18:05 10/14/18 18:10 Temperature Pulse Rate 73 73 72 Respiratory Rate 26 H 24 24 Blood Pressure 105/63 107/63 109/65 Pulse Oximetry 93 L 94 L 95 10/14/18 18:15 10/14/18 18:20 10/14/18 18:25 Temperature Pulse Rate 72 80 76 Respiratory Rate 29 H 35 H 25 H Blood Pressure 110/66 119/63 107/59 L Pulse Oximetry 94 L 85 L 95 10/14/18 18:30 10/14/18 18:35 10/14/18 18:40 Temperature Pulse Rate 72 72 72 Respiratory Rate 28 H 27 H 26 H Blood Pressure 105/61 101/59 L 102/59 L Pulse Oximetry 94 L 93 L 93 L 10/14/18 18:45 10/14/18 18:50 10/14/18 18:55 Temperature Pulse Rate 72 72 72 Respiratory Rate 25 H 25 H 24 Blood Pressure 106/62 104/61 106/61 Pulse Oximetry 94 L 94 L 94 L 10/14/18 19:00 10/14/18 19:05 10/14/18 19:10 Temperature Pulse Rate 73 73 73 Respiratory Rate 25 H 24 25 H Blood Pressure 103/57 L 101/58 L 105/60 Pulse Oximetry 94 L 94 L 93 L 10/14/18 19:15 10/14/18 19:20 10/14/18 19:25 Temperature Pulse Rate 73 73 72 Respiratory Rate 25 H 21 22 Blood Pressure 103/58 L 103/60 103/60 Pulse Oximetry 93 L 100 100 10/14/18 19:30 10/14/18 19:44 10/14/18 19:45 Temperature Pulse Rate 73 74 Respiratory Rate 27 H 27 H 26 H Blood Pressure 103/55 L 103/57 L Pulse Oximetry 91 L 90 L 92 L 10/14/18 20:00 10/14/18 20:15 10/14/18 20:30 Temperature Pulse Rate 74 74 74 Respiratory Rate 26 H 27 H 26 H Blood Pressure 102/58 L 92/55 L 100/58 L Pulse Oximetry 92 L 93 L 94 L 10/14/18 20:45 10/14/18 21:00 10/14/18 21:15 Temperature Pulse Rate 79 78 79 Respiratory Rate 34 H 31 H 31 H Blood Pressure 103/58 L 107/61 106/64 Pulse Oximetry 94 L 96 97 10/14/18 21:30 10/14/18 21:45 10/14/18 22:00 Temperature Pulse Rate 85 85 82 Respiratory Rate 35 H 33 H 28 H Blood Pressure 107/66 102/65 108/59 L Pulse Oximetry 96 95 95 10/14/18 22:26 10/14/18 22:31 10/14/18 22:52 Temperature Pulse Rate 90 90 87 Respiratory Rate 34 H 32 H 32 H Blood Pressure 138/90 139/65 95/64 L Pulse Oximetry 95 96 90 L 10/14/18 23:00 10/14/18 23:01 10/14/18 23:16 Temperature Pulse Rate 86 91 H 88 Respiratory Rate 34 H 33 H 30 H Blood Pressure 98/76 L 109/82 Pulse Oximetry 90 L 92 L 96 10/14/18 23:30 10/14/18 23:46 10/15/18 00:00 Temperature Pulse Rate 90 89 87 Respiratory Rate 29 H 29 H 25 H Blood Pressure 105/69 105/68 106/67 Pulse Oximetry 96 96 94 L 10/15/18 00:15 10/15/18 00:30 10/15/18 00:45 Temperature Pulse Rate 85 84 82 Respiratory Rate 28 H 27 H 27 H Blood Pressure 104/61 106/59 L 109/62 Pulse Oximetry 97 97 98 10/15/18 01:00 10/15/18 01:15 10/15/18 01:30 Temperature Pulse Rate 81 80 80 Respiratory Rate 25 H 25 H 24 Blood Pressure 106/59 L 111/62 112/63 Pulse Oximetry 97 97 96 10/15/18 01:45 10/15/18 02:00 10/15/18 02:15 Temperature Pulse Rate 79 79 79 Respiratory Rate 25 H 24 24 Blood Pressure 112/57 L 108/59 L 105/56 L Pulse Oximetry 94 L 96 96 10/15/18 02:30 10/15/18 02:45 10/15/18 03:00 Temperature Pulse Rate 79 79 78 Respiratory Rate 24 25 H 25 H Blood Pressure 107/57 L 102/56 L 95/55 L Pulse Oximetry 95 94 L 95 10/15/18 03:15 10/15/18 03:30 10/15/18 03:45 Temperature Pulse Rate 78 78 78 Respiratory Rate 24 24 24 Blood Pressure 95/55 L 100/59 L 100/55 L Pulse Oximetry 94 L 94 L 94 L 10/15/18 04:00 10/15/18 04:15 10/15/18 04:40 Temperature Pulse Rate 79 79 Respiratory Rate 25 H 26 H 23 Blood Pressure 101/55 L 100/54 L Pulse Oximetry 92 L 93 L 94 L 10/15/18 04:46 10/15/18 08:00 10/15/18 08:11 Temperature 99.0 F Pulse Rate 79 81 81 Respiratory Rate 24 26 H 35 H Blood Pressure 102/57 L Pulse Oximetry 93 L 93 L 10/15/18 10:23 10/15/18 12:00 10/15/18 12:27 Temperature 100.0 F H Pulse Rate 85 Respiratory Rate 24 28 H 18 Blood Pressure 103/58 L Pulse Oximetry 93 L 95 100 Intake & Output 10/14/18 10/15/18 10/15/18 18:59 06:59 18:59 Intake Total 1452.5 / 1452.5 3289.5 / 3289.5 1483 / 1483 Output Total 1400 / 1400 850 / 850 Balance 52.5 / 52.5 2439.5 / 2439.5 1483 / 1483 Weight 109.5 kg Intake: IV 1396.5 / 1396.5 3229.5 / 3229.5 1483 / 1483 Precedex Inj 1,000 MCG In NS 250 / 250 750 / 750 Inj 240 ML @ 0.2 MCG/KG/HR 4.92 mls/hr IV.CONT TITRATE PRN Rx# :[id number] Diprivan 1000 mg/100 ml Inj 1, 100 / 100 400 / 400 200 / 200 000 mg In 100 ml @ 5 MCG/KG/MIN 2.955 mls/hr IV.CONT TITRATE PRN Rx#:[id number] Maxipime Inj 2,000 MG In NS Inj 300 / 300 100 ML @ 200 mls/hr IV.SIG Q8H MINOR Rx#:[id number] Diflucan 200 mg Premix Bag 200 200 / 200 ML @ 100 mls/hr IV.SIG Q24H MINOR Rx#:[id number] NS Inj 250 ML @ 15 mls/hr IV. 250 / 250 SIG ONCE MINOR Rx#:[id number] Bactrim Inj 528 MG In D5W Inj 533 / 533 1066 / 1066 533 / 533 500 ML @ 355.333 mls/hr IV.SIG Q6H MINOR Rx#:[id number] Vancomycin Inj 1,350 MG In NS 513.5 / 513.5 513.5 / 513.5 Inj 500 ML @ 250 mls/hr IV.SIG Q18H MINOR Rx#:[id number] fentaNYL 10 mcg/mL Premix Drip 250 / 250 250 / 250 2,500 mcg In 250 ml @ 50 MCG/HR 5 mls/hr IV.SIG TITRATE PRN Rx #:[id number] Tube Feeding 56 / 56 Water Bolus Amount 60 / 60 Intake (Blood Product) Amt 0 / 0 Prepooled Plts Leukoreduced 5d 0 / 0 Unit [id number] Prepooled Plts Leukoreduced 5d 0 / 0 Unit [id number] Output: Urine Amount (Catheter) 1400 / 1400 850 / 850 Condom 1400 / 1400 850 / 850 Other: Date of Last Bowel Movement 10/11/18 10/11/18 10/11/18 10/13/18 16:00 Sputum - Endotracheal Gram Stain - Final 10/13/18 16:00 Sputum - Endotracheal Sputum Culture - Final S. aureus MRSA Escherichia coli 10/13/18 04:28 Sputum - Endotracheal Gram Stain - Final 10/13/18 04:28 Sputum - Endotracheal Sputum Culture - Final S. aureus MRSA Escherichia coli 10/12/18 22:55 Blood - Peripheral Aerobic Blood Culture - Preliminary No growth in 3 days 10/12/18 22:55 Blood - Peripheral Anaerobic Blood Culture - Preliminary No growth in 3 days 10/12/18 22:50 Blood - Peripheral Aerobic Blood Culture - Preliminary No growth in 3 days 10/12/18 22:50 Blood - Peripheral Anaerobic Blood Culture - Preliminary No growth in 3 days 10/12/18 21:50 Catheterized Urine Urine Culture - Final No growth in 48 hours 10/09/18 12:25 Blood - Peripheral Aerobic Blood Culture - Final No growth in 5 days 10/09/18 12:25 Blood - Peripheral Anaerobic Blood Culture - Final No growth in 5 days 10/09/18 12:20 Blood - Peripheral Aerobic Blood Culture - Final No growth in 5 days 10/09/18 12:20 Blood - Peripheral Anaerobic Blood Culture - Final No growth in 5 days 10/07/18 08:00 Blood - Peripheral Aerobic Blood Culture - Final No growth in 5 days 10/07/18 08:00 Blood - Peripheral Anaerobic Blood Culture - Final No growth in 5 days 10/07/18 08:05 Blood - Peripheral Aerobic Blood Culture - Final No growth in 5 days 10/07/18 08:05 Blood - Peripheral Anaerobic Blood Culture - Final No growth in 5 days Lab - Hematology Results 10/14/18 10/15/18 04:48 04:58 WBC 3.8 L 2.6 L RBC 2.25 L 2.51 L Hgb 7.5 L 8.2 L Hct 22.1 L 24.3 L MCV 98.3 96.9 MCH 33.1 32.8 MCHC 33.7 33.8 RDW 16.3 15.9 Plt Count 61 L 74 L MPV 11.5 H 10.3 Prelim Diff (Auto) Slide review pending Slide review pending Neut % (Auto) 68.8 76.7 H Lymph % (Auto) 18.5 10.9 Anson % (Auto) 10.0 H 8.1 H Eos % (Auto) 2.2 3.8 Baso % (Auto) 0.5 0.5 Neut # (Auto) 2.6 2.0 Lymph # (Auto) 0.7 L 0.3 L Anson # (Auto) 0.4 0.2 Eos # (Auto) 0.1 0.1 Baso # (Auto) 0.0 0.0 WBC Differential . . Diff Scan Auto diff confirmed Auto diff confirmed Differential Comment . . Platelet Estimate Low L Low L Platelet Morphology Normal Enlarged H Tear Drop Cells 2+ H Lab - Chemistry Results 10/14/18 10/15/18 04:48 04:58 Sodium 146 H 143 Potassium 3.6 3.6 Chloride 114 H 112 H Carbon Dioxide 21.6 22.4 Anion Gap 10 9 BUN 26 H 22 H Creatinine 1.18 0.94 Estimated GFR 66 L 85 L Random Glucose 97 96 Calcium 7.9 L 7.6 L Phosphorus 3.4 3.4 Magnesium 2.2 1.9 Total Bilirubin 1.1 H 0.7 AST 151 H 120 H ALT 32 31 Alkaline Phosphatase 212 H 229 H Total Protein 6.7 6.7 Albumin 1.5 L 1.5 L Imaging: ITS Impressions Head MRI 10/08/18 00:00 CONCLUSION: 1. Subcortical T2 hyperintensity in the left frontoparietal region has markedly decreased in size. Rapid resolution would be more indicative of an inflammatory or ischemic process. 2. No characteristic findings of acute infarct, hemorrhage or mass. Lumbar Puncture Fluoroscopy 10/08/18 00:00 CONCLUSION: 1. Uncomplicated fluoroscopically guided lumbar puncture. Abdomen/Pelvis CT 10/13/18 00:00 CONCLUSION: 1. Bilateral renal cysts. A new, broad area of apparent induration laterally of the mid zone to lower pole of the right kidney. This is nonspecific. Differential would include an infected and/or ruptured cyst. Otherwise, I don't see a significant change or any evidence of infection within the abdomen or pelvis. 2. Splenomegaly again noted. 3. Small nonobstructing stones of the left kidney are unchanged. 4. Umbilical hernia containing fat only and. Chest CT 10/13/18 00:00 CONCLUSION: Bilateral patchy dense airspace consolidation, mid and lower lung predominant on the right, mid and upper lung predominant on the left. These are nonspecific but new and presumably infectious or inflammatory. Head CT 10/13/18 00:00 CONCLUSION: No acute intracranial abnormality is demonstrated. . Abdomen/Bladder Ultrasound 10/14/18 00:00 CONCLUSION: 1. Small cyst within the kidneys bilaterally. There is a septation within the inferior renal cyst on the right. 2. No findings to indicate renal obstruction identified. Chest X-Ray 10/15/18 06:00 CONCLUSION: Stable bilateral airspace disease. Tracheostomy and NG tube unchanged. Physical Exam: PHYSICAL EXAMINATION: GENERAL: Patient intubated. Nonresponsive. HEENT: Head is atraumatic. No icterus. NECK: Supple. No swelling or adenopathy. LUNGS: Bibasilar rhonchi. HEART: Regular S1 and S2 without murmurs. ABDOMEN: Decreased bowel sounds. Soft. No mass palpable. EXTREMITIES: No clubbing, cyanosis or edema. SKIN: No rash. NEUROLOGIC: Unable to assess. PSYCHIATRIC: Unable to assess. Assessment and Plan - Plan IMPRESSION: 1. Seizure in patient with acquired immunodeficiency syndrome. 2. Altered mental status. ? etiology. 3. Acute encephalopathy. 4. Fever. ? drug fever vs infection. 5. Possible sepsis. 6. MRSA pneumonia. 7. Acute respiratory failure. RECOMMENDATIONS: 1. Continue Diflucan. 2. Continue the prophylactic azithromycin for MAC. 3. Continue vancomycin. Pharmacy to monitor. 4. Continue Bactrim for PCP pneumonia treatment. Sputum culture also has E. coli which is sensitive to Bactrim. 5. Monitor the temperature.
--- NOTE | 2018-10-15 20:44 | P.PNCC ---
Subjective Subjective Remarks/Hospital Course: 48yM with history of HIV and CD4+ count <20 presenting with seizure and fever. The patient was admitted from 09/26-10/05/18 for fever and headache, had an initial attempt at LP performed in the ED but was unsuccessful and subsequently declined any further attempts. He had blood cultures which were negative at 5 days and positive toxoplasma IgG, treated empirically with IV fluconazole and discharged home with PO fluconazole and prophylactic azithromycin and bactrim. The patient is chronic non-compliant with his HIV medications and was reportedly not taking his discharge meds. Today, he was at home and had a 2 minute seizure witnessed by his sister Beata. He was brought to the ED via EMS and had a temp of 101F and heart rate of 150. He was given a dose of vanco, ceftazidime, and acyclovir along with 3L NS bolus. He had a head CT which was unchanged from his previous visit. On my evaluation, the patient is encephalopathic and oriented to name only. He is unable to provide any further meaningful details to HPI. I spoke with the patient's sister Beata, who says that the patient is frequent non-compliant with his medications, reportedly took "a whole bottle of percocet" two days ago (just after discharge), and "hasn't been in his right mind since then. He can't finish a sentence and has been urinating himself". 10/08: Patient intubated overnight for continued respiratory distress/ hypoxia. Currently sedated and intubated. 10/09: Patient growing MRSA in sputum culture, febrile to 103F, CSF shows no organisms on gram stain and cultures pending. 10/10: Remains intubated heavily sedated. Remains on suspected toxoplasmosis treatment with vitamin Timentin sulfadiazine and leucovorin. CSF cultures remains negative. 10/11: Remains intubated and sedated. Failed CPAP trial yesterday due to severe tachypnea. Treatment for toxoplasmosis currently held by ID as it is known least high. CSF cultures remains negative. Start diuresis with IV Lasix , start Precedex to facilitate weaning 10/12: Attempt is being made to transition from propofol to Precedex to facilitate vent weaning but patient not tolerating becomes very tachypneic and anxious. Restarted back on propofol. We will start scheduled Ativan to facilitate weaning propofol. 10/13: Remains very critical spiking high fevers at 102. Significant difficulties and ventilator and sedation weaning due to severe agitation and severe ventilator asynchrony once sedation is lowered. Family wants continued aggressive care. Early tracheostomy may help reduce sedation and ventilator wean. Will discuss with sister who is the POA. Due to continued fever I will check CT chest abdomen and pelvis to rule out abscess loculated effusions etc. pancultured yesterday pending 10/14: Remains critically ill and septic T-max again more than 102. CT of the chest shows increasing bilateral consolidation. PJP sent pending at this time. Will discuss with ID about empiric treatment until the cultures are back. CT abdomen also shows questionable infected cyst on the right kidney. Will check renal ultrasound. Plan for tracheostomy and bronchoscopy today will collect additional specimen for PJP and other opportunistic infection 10/15: continues to be septic and spiking fevers. trached yesterday. agitation persists. minimal improvements overall. starting to get volume overloaded as well. Objective Vital Signs / I&O: Vital Signs 10/14/18 20:45 10/14/18 21:00 10/14/18 21:15 Temperature Pulse Rate 79 78 79 Respiratory Rate 34 H 31 H 31 H Blood Pressure 103/58 L 107/61 106/64 Pulse Oximetry 94 L 96 97 10/14/18 21:30 10/14/18 21:45 10/14/18 22:00 Temperature Pulse Rate 85 85 82 Respiratory Rate 35 H 33 H 28 H Blood Pressure 107/66 102/65 108/59 L Pulse Oximetry 96 95 95 10/14/18 22:26 10/14/18 22:31 10/14/18 22:52 Temperature Pulse Rate 90 90 87 Respiratory Rate 34 H 32 H 32 H Blood Pressure 138/90 139/65 95/64 L Pulse Oximetry 95 96 90 L 10/14/18 23:00 10/14/18 23:01 10/14/18 23:16 Temperature Pulse Rate 86 91 H 88 Respiratory Rate 34 H 33 H 30 H Blood Pressure 98/76 L 109/82 Pulse Oximetry 90 L 92 L 96 10/14/18 23:30 10/14/18 23:46 10/15/18 00:00 Temperature Pulse Rate 90 89 87 Respiratory Rate 29 H 29 H 25 H Blood Pressure 105/69 105/68 106/67 Pulse Oximetry 96 96 94 L 10/15/18 00:15 10/15/18 00:30 10/15/18 00:45 Temperature Pulse Rate 85 84 82 Respiratory Rate 28 H 27 H 27 H Blood Pressure 104/61 106/59 L 109/62 Pulse Oximetry 97 97 98 10/15/18 01:00 10/15/18 01:15 10/15/18 01:30 Temperature Pulse Rate 81 80 80 Respiratory Rate 25 H 25 H 24 Blood Pressure 106/59 L 111/62 112/63 Pulse Oximetry 97 97 96 10/15/18 01:45 10/15/18 02:00 10/15/18 02:15 Temperature Pulse Rate 79 79 79 Respiratory Rate 25 H 24 24 Blood Pressure 112/57 L 108/59 L 105/56 L Pulse Oximetry 94 L 96 96 10/15/18 02:30 10/15/18 02:45 10/15/18 03:00 Temperature Pulse Rate 79 79 78 Respiratory Rate 24 25 H 25 H Blood Pressure 107/57 L 102/56 L 95/55 L Pulse Oximetry 95 94 L 95 10/15/18 03:15 10/15/18 03:30 10/15/18 03:45 Temperature Pulse Rate 78 78 78 Respiratory Rate 24 24 24 Blood Pressure 95/55 L 100/59 L 100/55 L Pulse Oximetry 94 L 94 L 94 L 10/15/18 04:00 10/15/18 04:15 10/15/18 04:40 Temperature Pulse Rate 79 79 Respiratory Rate 25 H 26 H 23 Blood Pressure 101/55 L 100/54 L Pulse Oximetry 92 L 93 L 94 L 10/15/18 04:46 10/15/18 08:00 10/15/18 08:11 Temperature 37.2 C Pulse Rate 79 81 81 Respiratory Rate 24 26 H 35 H Blood Pressure 102/57 L Pulse Oximetry 93 L 93 L 10/15/18 10:23 10/15/18 12:00 10/15/18 12:27 Temperature 37.8 C H Pulse Rate 85 Respiratory Rate 24 28 H 18 Blood Pressure 103/58 L Pulse Oximetry 93 L 95 100 10/15/18 15:42 10/15/18 15:46 10/15/18 16:00 Temperature 36.6 C Pulse Rate 90 76 Respiratory Rate 18 18 23 Blood Pressure 88/54 L Pulse Oximetry 94 L 95 Intake & Output 10/15/18 10/15/18 10/16/18 06:59 18:59 06:59 Intake Total 3289.5 / 3289.5 2706 / 2706 100 / 100 Output Total 850 / 850 1600 / 1600 Balance 2439.5 / 2439.5 1106 / 1106 100 / 100 Weight 109.5 kg Intake: IV 3229.5 / 3229.5 2466 / 2466 100 / 100 Precedex Inj 1,000 MCG In NS 250 / 250 750 / 750 Inj 240 ML @ 0.2 MCG/KG/HR 4.92 mls/hr IV.CONT TITRATE PRN Rx# :[id number] Diprivan 1000 mg/100 ml Inj 1, 400 / 400 300 / 300 100 / 100 000 mg In 100 ml @ 5 MCG/KG/MIN 2.955 mls/hr IV.CONT TITRATE PRN Rx#:[id number] Maxipime Inj 2,000 MG In NS Inj 300 / 300 100 / 100 100 ML @ 200 mls/hr IV.SIG Q8H MINOR Rx#:[id number] Diflucan 200 mg Premix Bag 200 200 / 200 ML @ 100 mls/hr IV.SIG Q24H MINOR Rx#:[id number] NS Inj 250 ML @ 15 mls/hr IV. 250 / 250 SIG ONCE MINOR Rx#:[id number] Bactrim Inj 528 MG In D5W Inj 1066 / 1066 1066 / 1066 500 ML @ 355.333 mls/hr IV.SIG Q6H MINOR Rx#:[id number] Vancomycin Inj 1,350 MG In NS 513.5 / 513.5 Inj 500 ML @ 250 mls/hr IV.SIG Q18H MINOR Rx#:[id number] fentaNYL 10 mcg/mL Premix Drip 250 / 250 250 / 250 2,500 mcg In 250 ml @ 50 MCG/HR 5 mls/hr IV.SIG TITRATE PRN Rx #:[id number] Oral 240 / 240 Water Bolus Amount 60 / 60 Output: Urine Amount (Catheter) 850 / 850 1600 / 1600 Condom 850 / 850 1600 / 1600 Other: Date of Last Bowel Movement 10/11/18 10/11/18 Result Diagrams: 10/15/18 04:58 10/15/18 04:58 Objective Remarks: GEN: Ill-appearing, intubated and sedated HEENT: NCAT, trach and OGT present NECK: No JVD, trachea midline CARDIO: tachycardic rate, regular rhythm. sinus. PULM: Breath sounds equal bilaterally. Few coarse rhonchi bilaterally. On lightening sedation becomes very tachypneic, asynchronous with the vent ABD/GI: Soft, non-tender, mildly distended, easily reducible umbilical hernia EXT/MSK: No peripheral edema. SKIN: Flushed, mildly diaphoretic. NEURO: RASS -3. Heavily sedated for vent synchrony. Slightly moves extremities to pain. 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 remains critically ill. agitated delirium significant barrier to forward progress. NEURO: agitated delirium- severe Fungal meningitis NEWSPERSON toxoplasmosis Acute metabolic encephalopathy Substance abuse -Seizure precautions. Neurology following, no seizure activity seen on EEG -Continue home dose of Topamax -CSF analysis- no organisms seen, 6 WBCs/ 4 RBCs/ clear, opening pressure 23, no growth -MRI brain with contrast 10/08 Subcortical T2 hyperintensity in the left frontoparietal region has markedly decreased in size. Rapid resolution more indicative of an inflammatory or ischemic process. Currently no lesion suggestive of toxoplasmosis. Treatment for toxo held for now -Antifungals as below - start seroquel 100mg po q8h - start propranolol 20mg po q8h - prn geodon 10mg IM q12h - (reported allergy to haldol causing swelling so will avoid for now). - morphine 10mg po PRN pain or discomfort. -wean propofol, fentanyl, precedex as tolerated. - goal RASS -2. CARDIO: -Hemodynamically stable -Echo performed on 05/02/18, showed EF 55-60%, mild TR, no vegetations -increase iv lasix to 40mg iv q8h. - goal negative fluid balance. PULM: -Continues to fail SBT due to severe agitation on sedation lowering, becomes asynchronous and hypoxic. Mental status will not permit extubation -Unable to vent wean or sedation wean due to severe ventilator synchrony and agitation -s/p trach 10/14 -Vent bundle, Nebs, Vent day 8 -CT chest showing worsening multilobar bilateral infiltrates despite MRSA treatment -P ROSSY specimen sent yesterday, repeat BAL for PJP and other opportunistic infection F/E/N: -Continue free water flushes -Monitor Is and Os -Electrolyte replacement protocol -IV Lasix 40 mg q8h RENAL: -MIGUEL ANGEL, creat stable -Straight cath PRN -Renal ultrasound ordered for questionable infected cyst right kidney ID: -ID following (Dr. Toribio) * CSF negative thus far * MRSA pneumonia -Continue Diflucan, vancomycin, prophylactic azithromycin, add P ROSSY prophylaxis -BAL today and sent for opportunistic infections -Off pyrimethamine, sulfadiazine, leucovorin, per ID as MRI brain did not show any lesions suggestive of toxoplasmosis -CT chest abdomen and pelvis due to persistent fever rule out abscess- increasing bilateral pulmonary infiltrates, questionable infected cyst right kidney. PROPHY: -SCDs, SQH. -PPI Overall: This patient is critically ill and at very high risk for deterioration. He requires continued ICU level of care.
[2018-10-15] MEDS: QUEtiapine 100 MG Tablet PO SCH (22:01)
[2018-10-15] MEDS: Morphine Sulfate Oral Liq 10 MG/0.5 ML Syringe PO SCH (22:02)
[2018-10-16] MEDS: SULFAMETHOX IV.SIG SCH ×8 (00:43→17:34)
[2018-10-16] MEDS: DEXTROSE 5% IV.SIG SCH ×8 (00:43→17:34)
[2018-10-16] MEDS: TRIMETHOPRIM IV.SIG SCH ×8 (00:43→17:34)
[2018-10-16] MEDS: WATER IV.SIG SCH ×8 (00:43→17:34)
[2018-10-16] MEDS: Oral Hygiene Kit OROPHARYNG SCH ×4 (00:48→15:53)
[2018-10-16] MEDS: Morphine Sulfate Oral Liq 10 MG/0.5 ML Syringe PO SCH ×6 (02:29→21:32)
--- NOTE | 2018-10-16 03:35 | XR ---
EXAM DATE: 10/16/2018 3:24 AM EST AGE/SEX: 48 years / Male INDICATIONS: Painful respirations. CLINICAL DATA: This is the patient's subsequent encounter. Patient reports that signs and symptoms h ave been present for 2 weeks and indicates a pain score of Nonresponsive. MEDICAL/SURGICAL HISTORY: . HIV, COPD, HEP C, pneumocystitis, MRSA. Neuropathy. Non-responsive . COMPARISON: [facility], CHEST 1V SINGLE AP, 10/15/2018. . FINDINGS: Tracheostomy in good position. NG enters stomach. Bilateral mostly basilar and perihilar airspace con solidation. No pneumothorax. No significant effusion. CONCLUSION: Bilateral airspace consolidation similar to prior examination. Tracheostomy and nasogastric tube unch anged. Electronically signed by: Isael Tian MD 10/16/2018 3:34 AM EST
[2018-10-16 04:44] LABS: Calcium 8.1 mg/dL (8.5-10.1); Carbon Dioxide 19.7 meq/L (21.0-32.0); Magnesium 1.8 mg/dL (1.5-2.5)
[2018-10-16 04:50] LABS: Hematocrit 29.2 % (39.0-51.0); Hemoglobin 9.6 gm/dL (13.0-17.0); Mean Corpuscular Hemoglobin 32.8 pg (27.0-34.0); Mean Corpuscular Volume 99.3 fL (80.0-100.0); Mean Platelet Volume 10.7 fL (7.0-11.0); Platelet Count 69 th/mm3 (150-450); Red Blood Count 2.94 mil/mm3 (4.50-5.90); Red Cell Distribution Width 16.1 % (11.6-17.2); White Blood Count 7.1 th/mm3 (4.0-11.0)
[2018-10-16] MEDS: QUEtiapine 100 MG Tablet PO SCH ×3 (05:54→21:33)
[2018-10-16] MEDS: Dexmedetomidine Inj 1,000 MCG in Sodium Chlor 0.9% Inj 240 ML IV.CONT PRN ×3 (05:57→21:46)
[2018-10-16] MEDS: fentaNYL 10 mcg/mL Premix Drip 2,500 MCG/250 ML BAG IV.SIG PRN ×2 (07:53→18:22)
[2018-10-16] MEDS: Beneprotein Powder Packet G-TUBE SCH ×3 (08:15→17:34)
[2018-10-16] MEDS: Chlorhexidine 0.12% Oral Kit 15 ML UDC OROPHARYNG SCH ×2 (08:15→21:34)
[2018-10-16] MEDS: Topiramate 25 MG Tablet PO SCH ×2 (08:16→21:33)
[2018-10-16] MEDS: Famotidine 20 MG Tablet PO SCH ×2 (08:16→21:33)
[2018-10-16] MEDS: Senna/Docusate Sodium 8.6/50 MG Tablet PO SCH ×2 (08:16→21:33)
[2018-10-16] MEDS: Vancomycin Inj 1,350 MG in Sodium Chlor 0.9% Inj 500 ML IV.SIG SCH (10:06)
--- NOTE | 2018-10-16 11:59 | P.PNID ---
Subjective Remarks: Patient is currently intubated and on the ventilator. Sedated. Nonresponsive. Discussed with RN. Reportedly oxygen sats dropping this a.m I. Temperature still elevated. Copious oral secretions noted. CSF culture has no growth. Csf toxo, HSV, cryptococcal antigen is negative. This is a 48-year-old white male who has AIDS. The patient was recently admitted to the hospital and treated for headaches. He received empiric antibiotic treatment. He refused a lumbar puncture and therefore, it was difficult to determine the cause of his headaches. MRI did not show any significant lesions. The patient presented to the emergency department with seizure. His IgM titer for toxoplasma was negative, but the IgG was positive. The patient's toxicology screen is positive for cocaine and cannabinoids. Past Medical History: PAST MEDICAL HISTORY: Depression, COPD, bipolar disorder, anxiety disorder, hepatitis C, neuropathy, HIV, posttraumatic stress disorder, history of MRSA. Allergies/Adverse Reactions: Allergies haloperidol Allergy (Severe, Verified 09/25/18 17:57) Swelling TONGUE SWELLING - Per pt. Objective Vital Signs 10/15/18 12:00 10/15/18 12:27 10/15/18 15:42 Temperature 100.0 F H Pulse Rate 85 90 Respiratory Rate 28 H 18 18 Blood Pressure 103/58 L Pulse Oximetry 95 100 10/15/18 15:46 10/15/18 16:00 10/15/18 19:00 Temperature 98 F Pulse Rate 76 76 Respiratory Rate 18 23 25 H Blood Pressure 88/54 L 86/54 L Pulse Oximetry 94 L 95 94 L 10/15/18 19:15 10/15/18 19:30 10/15/18 19:45 Temperature Pulse Rate 76 77 79 Respiratory Rate 26 H 28 H 27 H Blood Pressure 88/51 L 90/53 L 90/54 L Pulse Oximetry 94 L 93 L 94 L 10/15/18 20:00 10/15/18 20:15 10/15/18 20:30 Temperature 101.1 F H Pulse Rate 79 80 80 Respiratory Rate 29 H 33 H 31 H Blood Pressure 95/52 L 91/54 L 94/55 L Pulse Oximetry 92 L 91 L 91 L 10/15/18 20:45 10/15/18 21:00 10/15/18 21:15 Temperature Pulse Rate 81 81 88 Respiratory Rate 30 H 30 H 36 H Blood Pressure 92/51 L 90/50 L 87/51 L Pulse Oximetry 91 L 90 L 93 L 10/15/18 21:25 10/15/18 21:30 10/15/18 21:45 Temperature Pulse Rate 96 H 99 H 102 H Respiratory Rate 36 H 41 H 41 H Blood Pressure 128/73 124/73 Pulse Oximetry 96 94 L 93 L 10/15/18 22:00 10/15/18 22:15 10/15/18 22:30 Temperature Pulse Rate 103 H 104 H 104 H Respiratory Rate 41 H 41 H 43 H Blood Pressure 131/73 133/67 138/71 Pulse Oximetry 94 L 94 L 97 10/15/18 22:45 10/15/18 23:00 10/15/18 23:15 Temperature Pulse Rate 95 H 95 H 92 H Respiratory Rate 43 H 44 H 41 H Blood Pressure 123/70 118/69 123/70 Pulse Oximetry 92 L 93 L 94 L 10/15/18 23:30 10/15/18 23:45 10/16/18 00:00 Temperature 98.5 F Pulse Rate 92 H 93 H 93 H Respiratory Rate 42 H 42 H 42 H Blood Pressure 121/73 125/74 129/75 Pulse Oximetry 95 96 97 10/16/18 00:15 10/16/18 00:30 10/16/18 00:46 Temperature Pulse Rate 95 H 93 H 91 H Respiratory Rate 39 H 37 H 34 H Blood Pressure 135/78 136/79 113/79 Pulse Oximetry 97 96 98 10/16/18 01:00 10/16/18 01:15 10/16/18 01:30 Temperature Pulse Rate 91 H 87 88 Respiratory Rate 34 H 35 H 33 H Blood Pressure 120/82 126/79 122/78 Pulse Oximetry 97 96 98 10/16/18 01:45 10/16/18 02:00 10/16/18 02:15 Temperature Pulse Rate 85 81 81 Respiratory Rate 34 H 28 H 27 H Blood Pressure 120/76 119/64 117/64 Pulse Oximetry 98 98 97 10/16/18 02:30 10/16/18 02:45 10/16/18 03:00 Temperature Pulse Rate 78 79 81 Respiratory Rate 23 26 H 30 H Blood Pressure 105/60 106/61 109/64 Pulse Oximetry 96 97 97 10/16/18 03:15 10/16/18 03:30 10/16/18 03:45 Temperature Pulse Rate 79 80 82 Respiratory Rate 25 H 24 28 H Blood Pressure 101/55 L 103/59 L 97/59 L Pulse Oximetry 95 95 95 10/16/18 04:00 10/16/18 04:15 10/16/18 04:30 Temperature 98 F Pulse Rate 83 83 Respiratory Rate 26 H 28 H 26 H Blood Pressure 99/64 L 101/69 Pulse Oximetry 97 97 98 10/16/18 04:32 10/16/18 04:43 10/16/18 04:45 Temperature Pulse Rate 86 82 80 Respiratory Rate 26 H 28 H 31 H Blood Pressure 108/65 106/59 L Pulse Oximetry 100 98 10/16/18 05:00 10/16/18 05:15 10/16/18 05:30 Temperature Pulse Rate 83 80 80 Respiratory Rate 35 H 26 H 25 H Blood Pressure 113/69 102/56 L 102/57 L Pulse Oximetry 94 L 95 95 10/16/18 05:45 10/16/18 06:00 10/16/18 06:15 Temperature Pulse Rate 77 76 77 Respiratory Rate 22 24 25 H Blood Pressure 97/52 L 96/52 L 98/58 L Pulse Oximetry 95 96 95 10/16/18 06:30 10/16/18 06:45 10/16/18 07:00 Temperature Pulse Rate 76 78 78 Respiratory Rate 24 23 23 Blood Pressure 101/60 105/60 104/57 L Pulse Oximetry 94 L 93 L 93 L 10/16/18 07:15 10/16/18 07:31 10/16/18 07:45 Temperature Pulse Rate 81 81 80 Respiratory Rate 32 H 30 H 31 H Blood Pressure 111/64 108/63 112/67 Pulse Oximetry 95 95 96 10/16/18 08:00 10/16/18 08:15 10/16/18 08:31 Temperature 98.1 F Pulse Rate 79 77 77 Respiratory Rate 28 H 23 27 H Blood Pressure 107/67 100/58 L 105/66 Pulse Oximetry 96 95 100 10/16/18 08:36 10/16/18 08:46 10/16/18 09:00 Temperature Pulse Rate 76 75 74 Respiratory Rate 24 23 21 Blood Pressure 105/56 L 95/51 L Pulse Oximetry 95 95 94 L 10/16/18 11:27 10/16/18 11:44 Temperature Pulse Rate Respiratory Rate 24 Blood Pressure Pulse Oximetry 93 L 97 Intake & Output 10/15/18 10/16/18 10/16/18 18:59 06:59 18:59 Intake Total 3219.5 / 3219.5 2005 1083 / 1083 Output Total 1600 / 1600 1050 / 1050 Balance 1619.5 / 1619.5 956 / 956 1083 / 1083 Weight 109.8 kg Intake: IV 2979.5 / 2979.5 1886 / 1886 1083 / 1083 Precedex Inj 1,000 MCG In NS 750 / 750 500 / 500 Inj 240 ML @ 0.2 MCG/KG/HR 4.92 mls/hr IV.CONT TITRATE PRN Rx# :[id number] Diprivan 1000 mg/100 ml Inj 1, 300 / 300 120 / 120 000 mg In 100 ml @ 5 MCG/KG/MIN 2.955 mls/hr IV.CONT TITRATE PRN Rx#:[id number] Maxipime Inj 2,000 MG In NS Inj 100 / 100 200 / 200 100 / 100 100 ML @ 200 mls/hr IV.SIG Q8H MINOR Rx#:[id number] Diflucan 200 mg Premix Bag 200 200 / 200 ML @ 100 mls/hr IV.SIG Q24H MINOR Rx#:[id number] Bactrim Inj 528 MG In D5W Inj 1066 / 1066 1066 / 1066 533 / 533 500 ML @ 355.333 mls/hr IV.SIG Q6H MINOR Rx#:[id number] Vancomycin Inj 1,350 MG In NS 513.5 / 513.5 Inj 500 ML @ 250 mls/hr IV.SIG Q18H MINOR Rx#:[id number] fentaNYL 10 mcg/mL Premix Drip 250 / 250 250 / 250 2,500 mcg In 250 ml @ 50 MCG/HR 5 mls/hr IV.SIG TITRATE PRN Rx #:[id number] Oral 240 / 240 Water Bolus Amount 120 / 120 Output: Urine Amount (Catheter) 1600 / 1600 1050 / 1050 Condom 1600 / 1600 1050 / 1050 Other: Date of Last Bowel Movement 10/11/18 10/11/18 10/14/18 # Bowel Movements 0 10/12/18 22:55 Blood - Peripheral Aerobic Blood Culture - Preliminary No growth in 4 days 10/12/18 22:55 Blood - Peripheral Anaerobic Blood Culture - Preliminary No growth in 4 days 10/12/18 22:50 Blood - Peripheral Aerobic Blood Culture - Preliminary No growth in 4 days 10/12/18 22:50 Blood - Peripheral Anaerobic Blood Culture - Preliminary No growth in 4 days 10/13/18 16:00 Sputum - Endotracheal Gram Stain - Final 10/13/18 16:00 Sputum - Endotracheal Sputum Culture - Final S. aureus MRSA Escherichia coli 10/13/18 04:28 Sputum - Endotracheal Gram Stain - Final 10/13/18 04:28 Sputum - Endotracheal Sputum Culture - Final S. aureus MRSA Escherichia coli 10/12/18 21:50 Catheterized Urine Urine Culture - Final No growth in 48 hours 10/09/18 12:25 Blood - Peripheral Aerobic Blood Culture - Final No growth in 5 days 10/09/18 12:25 Blood - Peripheral Anaerobic Blood Culture - Final No growth in 5 days 10/09/18 12:20 Blood - Peripheral Aerobic Blood Culture - Final No growth in 5 days 10/09/18 12:20 Blood - Peripheral Anaerobic Blood Culture - Final No growth in 5 days Lab - Hematology Results 10/15/18 10/16/18 04:58 04:15 WBC 2.6 L 7.1 D RBC 2.51 L 2.94 L Hgb 8.2 L 9.6 L Hct 24.3 L 29.2 L MCV 96.9 99.3 MCH 32.8 32.8 MCHC 33.8 33.0 RDW 15.9 16.1 Plt Count 74 L 69 L MPV 10.3 10.7 Prelim Diff (Auto) Slide review pending Neut % (Auto) 76.7 H Lymph % (Auto) 10.9 [place] % (Auto) 8.1 H Eos % (Auto) 3.8 Baso % (Auto) 0.5 Neut # (Auto) 2.0 Lymph # (Auto) 0.3 L [place] # (Auto) 0.2 Eos # (Auto) 0.1 Baso # (Auto) 0.0 WBC Differential . Diff Scan Auto diff confirmed Differential Comment . Platelet Estimate Low L Platelet Morphology Enlarged H Tear Drop Cells 2+ H Lab - Chemistry Results 10/15/18 10/16/18 04:58 04:15 Sodium 143 139 Potassium 3.6 4.0 Chloride 112 H 110 H Carbon Dioxide 22.4 19.7 L Anion Gap 9 9 BUN 22 H 21 H Creatinine 0.94 1.05 Estimated GFR 85 L 75 L Random Glucose 96 100 Calcium 7.6 L 8.1 L Phosphorus 3.4 5.0 H D Magnesium 1.9 1.8 Total Bilirubin 0.7 AST 120 H ALT 31 Alkaline Phosphatase 229 H Total Protein 6.7 Albumin 1.5 L Imaging: ITS Impressions Head MRI 10/08/18 00:00 CONCLUSION: 1. Subcortical T2 hyperintensity in the left frontoparietal region has markedly decreased in size. Rapid resolution would be more indicative of an inflammatory or ischemic process. 2. No characteristic findings of acute infarct, hemorrhage or mass. Lumbar Puncture Fluoroscopy 10/08/18 00:00 CONCLUSION: 1. Uncomplicated fluoroscopically guided lumbar puncture. Abdomen/Pelvis CT 10/13/18 00:00 CONCLUSION: 1. Bilateral renal cysts. A new, broad area of apparent induration laterally of the mid zone to lower pole of the right kidney. This is nonspecific. Differential would include an infected and/or ruptured cyst. Otherwise, I don't see a significant change or any evidence of infection within the abdomen or pelvis. 2. Splenomegaly again noted. 3. Small nonobstructing stones of the left kidney are unchanged. 4. Umbilical hernia containing fat only and. Chest CT 10/13/18 00:00 CONCLUSION: Bilateral patchy dense airspace consolidation, mid and lower lung predominant on the right, mid and upper lung predominant on the left. These are nonspecific but new and presumably infectious or inflammatory. Head CT 10/13/18 00:00 CONCLUSION: No acute intracranial abnormality is demonstrated. . Abdomen/Bladder Ultrasound 10/14/18 00:00 CONCLUSION: 1. Small cyst within the kidneys bilaterally. There is a septation within the inferior renal cyst on the right. 2. No findings to indicate renal obstruction identified. Chest X-Ray 10/16/18 05:00 CONCLUSION: Bilateral airspace consolidation similar to prior examination. Tracheostomy and nasogastric tube unchanged. Physical Exam: PHYSICAL EXAMINATION: GENERAL: Patient intubated. Nonresponsive. HEENT: Head is atraumatic. No icterus. NECK: Supple. No swelling or adenopathy. LUNGS: Bilateral rhonchi. HEART: Regular S1 and S2 without murmurs. ABDOMEN: Decreased bowel sounds. Soft. No mass palpable. EXTREMITIES: No clubbing, cyanosis or edema. SKIN: No rash. NEUROLOGIC: Unable to assess. PSYCHIATRIC: Unable to assess. Assessment and Plan - Plan IMPRESSION: 1. Seizure in patient with acquired immunodeficiency syndrome. 2. Altered mental status. ? etiology. 3. Acute encephalopathy. 4. Fever. ? drug fever vs infection. 5. Possible sepsis. 6. MRSA pneumonia. 7. Acute respiratory failure. RECOMMENDATIONS: 1. Continue Diflucan. 2. Continue the prophylactic azithromycin for MAC. 3. Continue vancomycin. Pharmacy to monitor. 4. Continue Bactrim for PCP pneumonia treatment. Sputum culture also has E. coli which is sensitive to Bactrim. 5. Monitor the temperature.
[2018-10-16] MEDS: FLUCONAZOLE 200 MG IV.SIG SCH (12:12)
--- NOTE | 2018-10-16 21:48 | P.PNCC ---
Subjective Subjective Remarks/Hospital Course: 48yM with history of HIV and CD4+ count <20 presenting with seizure and fever. The patient was admitted from 09/26-10/05/18 for fever and headache, had an initial attempt at LP performed in the ED but was unsuccessful and subsequently declined any further attempts. He had blood cultures which were negative at 5 days and positive toxoplasma IgG, treated empirically with IV fluconazole and discharged home with PO fluconazole and prophylactic azithromycin and bactrim. The patient is chronic non-compliant with his HIV medications and was reportedly not taking his discharge meds. Today, he was at home and had a 2 minute seizure witnessed by his sister Beata. He was brought to the ED via EMS and had a temp of 101F and heart rate of 150. He was given a dose of vanco, ceftazidime, and acyclovir along with 3L NS bolus. He had a head CT which was unchanged from his previous visit. On my evaluation, the patient is encephalopathic and oriented to name only. He is unable to provide any further meaningful details to HPI. I spoke with the patient's sister Beata, who says that the patient is frequent non-compliant with his medications, reportedly took "a whole bottle of percocet" two days ago (just after discharge), and "hasn't been in his right mind since then. He can't finish a sentence and has been urinating himself". 10/08: Patient intubated overnight for continued respiratory distress/ hypoxia. Currently sedated and intubated. 10/09: Patient growing MRSA in sputum culture, febrile to 103F, CSF shows no organisms on gram stain and cultures pending. 10/10: Remains intubated heavily sedated. Remains on suspected toxoplasmosis treatment with vitamin Timentin sulfadiazine and leucovorin. CSF cultures remains negative. 10/11: Remains intubated and sedated. Failed CPAP trial yesterday due to severe tachypnea. Treatment for toxoplasmosis currently held by ID as it is known least high. CSF cultures remains negative. Start diuresis with IV Lasix , start Precedex to facilitate weaning 10/12: Attempt is being made to transition from propofol to Precedex to facilitate vent weaning but patient not tolerating becomes very tachypneic and anxious. Restarted back on propofol. We will start scheduled Ativan to facilitate weaning propofol. 10/13: Remains very critical spiking high fevers at 102. Significant difficulties and ventilator and sedation weaning due to severe agitation and severe ventilator asynchrony once sedation is lowered. Family wants continued aggressive care. Early tracheostomy may help reduce sedation and ventilator wean. Will discuss with sister who is the POA. Due to continued fever I will check CT chest abdomen and pelvis to rule out abscess loculated effusions etc. pancultured yesterday pending 10/14: Remains critically ill and septic T-max again more than 102. CT of the chest shows increasing bilateral consolidation. PJP sent pending at this time. Will discuss with ID about empiric treatment until the cultures are back. CT abdomen also shows questionable infected cyst on the right kidney. Will check renal ultrasound. Plan for tracheostomy and bronchoscopy today will collect additional specimen for PJP and other opportunistic infection 10/15: continues to be septic and spiking fevers. trached yesterday. agitation persists. minimal improvements overall. starting to get volume overloaded as well. 10/16: severe agitation persists. no improvements. also high fio2 requirements. very volume overloaded, but not diuresing appropriately: will add concentrated albumin and increase lasix again. no improvements between yesterday and today. Objective Vital Signs / I&O: Vital Signs 10/15/18 22:00 10/15/18 22:15 10/15/18 22:30 Temperature Pulse Rate 103 H 104 H 104 H Respiratory Rate 41 H 41 H 43 H Blood Pressure 131/73 133/67 138/71 Pulse Oximetry 94 L 94 L 97 10/15/18 22:45 10/15/18 23:00 10/15/18 23:15 Temperature Pulse Rate 95 H 95 H 92 H Respiratory Rate 43 H 44 H 41 H Blood Pressure 123/70 118/69 123/70 Pulse Oximetry 92 L 93 L 94 L 10/15/18 23:30 10/15/18 23:45 10/16/18 00:00 Temperature 36.9 C Pulse Rate 92 H 93 H 93 H Respiratory Rate 42 H 42 H 42 H Blood Pressure 121/73 125/74 129/75 Pulse Oximetry 95 96 97 10/16/18 00:15 10/16/18 00:30 10/16/18 00:46 Temperature Pulse Rate 95 H 93 H 91 H Respiratory Rate 39 H 37 H 34 H Blood Pressure 135/78 136/79 113/79 Pulse Oximetry 97 96 98 10/16/18 01:00 10/16/18 01:15 10/16/18 01:30 Temperature Pulse Rate 91 H 87 88 Respiratory Rate 34 H 35 H 33 H Blood Pressure 120/82 126/79 122/78 Pulse Oximetry 97 96 98 10/16/18 01:45 10/16/18 02:00 10/16/18 02:15 Temperature Pulse Rate 85 81 81 Respiratory Rate 34 H 28 H 27 H Blood Pressure 120/76 119/64 117/64 Pulse Oximetry 98 98 97 10/16/18 02:30 10/16/18 02:45 10/16/18 03:00 Temperature Pulse Rate 78 79 81 Respiratory Rate 23 26 H 30 H Blood Pressure 105/60 106/61 109/64 Pulse Oximetry 96 97 97 10/16/18 03:15 10/16/18 03:30 10/16/18 03:45 Temperature Pulse Rate 79 80 82 Respiratory Rate 25 H 24 28 H Blood Pressure 101/55 L 103/59 L 97/59 L Pulse Oximetry 95 95 95 10/16/18 04:00 10/16/18 04:15 10/16/18 04:30 Temperature 36.6 C Pulse Rate 83 83 Respiratory Rate 26 H 28 H 26 H Blood Pressure 99/64 L 101/69 Pulse Oximetry 97 97 98 10/16/18 04:32 10/16/18 04:43 10/16/18 04:45 Temperature Pulse Rate 86 82 80 Respiratory Rate 26 H 28 H 31 H Blood Pressure 108/65 106/59 L Pulse Oximetry 100 98 10/16/18 05:00 10/16/18 05:15 10/16/18 05:30 Temperature Pulse Rate 83 80 80 Respiratory Rate 35 H 26 H 25 H Blood Pressure 113/69 102/56 L 102/57 L Pulse Oximetry 94 L 95 95 10/16/18 05:45 10/16/18 06:00 10/16/18 06:15 Temperature Pulse Rate 77 76 77 Respiratory Rate 22 24 25 H Blood Pressure 97/52 L 96/52 L 98/58 L Pulse Oximetry 95 96 95 10/16/18 06:30 10/16/18 06:45 10/16/18 07:00 Temperature Pulse Rate 76 78 78 Respiratory Rate 24 23 23 Blood Pressure 101/60 105/60 104/57 L Pulse Oximetry 94 L 93 L 93 L 10/16/18 07:15 10/16/18 07:31 10/16/18 07:45 Temperature Pulse Rate 81 81 80 Respiratory Rate 32 H 30 H 31 H Blood Pressure 111/64 108/63 112/67 Pulse Oximetry 95 95 96 10/16/18 08:00 10/16/18 08:15 10/16/18 08:31 Temperature 36.7 C Pulse Rate 79 77 77 Respiratory Rate 28 H 23 27 H Blood Pressure 107/67 100/58 L 105/66 Pulse Oximetry 96 95 100 10/16/18 08:36 10/16/18 08:46 10/16/18 09:00 Temperature Pulse Rate 76 75 74 Respiratory Rate 24 23 21 Blood Pressure 105/56 L 95/51 L Pulse Oximetry 95 95 94 L 10/16/18 09:15 10/16/18 09:30 10/16/18 09:48 Temperature Pulse Rate 74 74 77 Respiratory Rate 22 21 19 Blood Pressure 95/51 L 91/53 L 96/55 L Pulse Oximetry 95 93 L 95 10/16/18 10:00 10/16/18 10:01 10/16/18 10:15 Temperature Pulse Rate 76 76 77 Respiratory Rate 24 25 H 25 H Blood Pressure 90/46 L 90/55 L Pulse Oximetry 93 L 93 L 91 L 10/16/18 10:30 10/16/18 10:45 10/16/18 11:00 Temperature Pulse Rate 77 78 77 Respiratory Rate 25 H 24 25 H Blood Pressure 90/53 L 97/54 L 93/50 L Pulse Oximetry 92 L 92 L 91 L 10/16/18 11:15 10/16/18 11:27 10/16/18 11:30 Temperature Pulse Rate 76 77 Respiratory Rate 24 24 18 Blood Pressure 94/51 L 94/52 L Pulse Oximetry 97 93 L 94 L 10/16/18 11:44 10/16/18 11:45 10/16/18 12:00 Temperature 36.6 C Pulse Rate 76 75 Respiratory Rate 21 20 Blood Pressure 96/54 L 99/57 L Pulse Oximetry 97 97 100 10/16/18 12:15 10/16/18 12:30 10/16/18 13:00 Temperature Pulse Rate 76 76 76 Respiratory Rate 19 19 19 Blood Pressure 98/54 L 93/54 L 94/50 L Pulse Oximetry 100 100 99 10/16/18 13:30 10/16/18 14:00 10/16/18 14:11 Temperature Pulse Rate 77 78 Respiratory Rate 22 20 21 Blood Pressure 88/53 L 89/52 L Pulse Oximetry 97 96 95 10/16/18 14:14 10/16/18 14:25 10/16/18 14:30 Temperature Pulse Rate 79 82 82 Respiratory Rate 23 29 H 29 H Blood Pressure 90/51 L 88/52 L 93/53 L Pulse Oximetry 94 L 94 L 91 L 10/16/18 15:00 10/16/18 15:30 10/16/18 15:38 Temperature Pulse Rate 84 82 83 Respiratory Rate 29 H 27 H 26 H Blood Pressure 99/57 L 94/50 L Pulse Oximetry 94 L 97 100 10/16/18 16:00 10/16/18 16:30 10/16/18 18:40 Temperature 37.1 C Pulse Rate 79 78 Respiratory Rate 20 20 21 Blood Pressure 91/55 L 93/53 L Pulse Oximetry 98 94 L 10/16/18 19:38 Temperature Pulse Rate 85 Respiratory Rate 24 Blood Pressure Pulse Oximetry 98 Intake & Output 10/16/18 10/16/18 10/17/18 06:59 18:59 06:59 Intake Total 2005 3133.5 / 3133.5 533 / 533 Output Total 1050 / 1050 1325 / 1325 Balance 956 / 956 1808.5 / 1808.5 533 / 533 Weight 109.8 kg Intake: IV 1886 / 1886 2829.5 / 2829.5 533 / 533 Precedex Inj 1,000 MCG In NS 500 / 500 250 / 250 Inj 240 ML @ 0.2 MCG/KG/HR 4.92 mls/hr IV.CONT TITRATE PRN Rx# :[id number] Diprivan 1000 mg/100 ml Inj 1, 120 / 120 000 mg In 100 ml @ 5 MCG/KG/MIN 2.955 mls/hr IV.CONT TITRATE PRN Rx#:[id number] Maxipime Inj 2,000 MG In NS Inj 200 / 200 100 / 100 100 ML @ 200 mls/hr IV.SIG Q8H [facility] Rx#:[id number] Diflucan 200 mg Premix Bag 200 400 / 400 ML @ 100 mls/hr IV.SIG Q24H [facility] Rx#:[id number] Bactrim Inj 528 MG In D5W Inj 1066 / 1066 1066 / 1066 533 / 533 500 ML @ 355.333 mls/hr IV.SIG Q6H [facility] Rx#:[id number] Vancomycin Inj 1,350 MG In NS 513.5 / 513.5 Inj 500 ML @ 250 mls/hr IV.SIG Q18H [facility] Rx#:[id number] fentaNYL 10 mcg/mL Premix Drip 500 / 500 2,500 mcg In 250 ml @ 50 MCG/HR 5 mls/hr IV.SIG TITRATE PRN Rx #:[id number] Tube Feeding 104 / 104 Water Bolus Amount 120 / 120 200 / 200 Output: Urine Amount (Catheter) 1050 / 1050 1325 / 1325 Condom 1050 / 1050 1325 / 1325 Other: # Incontinent Voids 3 Date of Last Bowel Movement 10/11/18 10/14/18 # Bowel Movements 0 Result Diagrams: 10/16/18 04:15 10/16/18 04:15 Objective Remarks: GEN: Ill-appearing, intubated and sedated HEENT: NCAT, trach and OGT present NECK: No JVD, trachea midline CARDIO: tachycardic rate, regular rhythm. sinus. PULM: Breath sounds equal bilaterally. Few coarse rhonchi bilaterally. On lightening sedation becomes very tachypneic, asynchronous with the vent ABD/GI: Soft, non-tender, mildly distended, easily reducible umbilical hernia EXT/MSK: No peripheral edema. SKIN: Flushed, mildly diaphoretic. NEURO: RASS -3. Heavily sedated for vent synchrony. Slightly moves extremities to pain. 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 remains critically ill. agitated delirium significant barrier to forward progress. 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 Neurology following, no seizure activity seen on EEG -Continue home dose of Topamax -CSF analysis- no organisms seen, 6 WBCs/ 4 RBCs/ clear, opening pressure 23, no growth -MRI brain with contrast 10/08 Subcortical T2 hyperintensity in the left frontoparietal region has markedly decreased in size. Rapid resolution more indicative of an inflammatory or ischemic process. Currently no lesion suggestive of toxoplasmosis. Treatment for toxo held for now -Antifungals as below - seroquel 100mg po q8h - propranolol 20mg po q8h - prn geodon 10mg IM q12h - (reported allergy to haldol causing swelling so will avoid for now). - morphine 10mg po PRN pain or discomfort. -wean fentanyl, precedex as tolerated. - goal RASS -2. CARDIO: -Hemodynamically stable -Echo performed on 05/02/18, showed EF 55-60%, mild TR, no vegetations -increase iv lasix to 40mg iv q6h. - goal negative fluid balance. add concentrated albumin 25% iv q8h PULM: -Continues to fail SBT due to severe agitation on sedation lowering, becomes asynchronous and hypoxic. Mental status will not permit extubation -Unable to vent wean or sedation wean due to severe ventilator synchrony and agitation -s/p trach 10/14 -Vent bundle, Nebs, Vent day 8 -CT chest showing worsening multilobar bilateral infiltrates despite MRSA treatment F/E/N/GI: -Continue free water flushes -Monitor Is and Os -Electrolyte replacement protocol -IV Lasix 40 mg q6h - restart tube feeds. - consult GI for PEG placement. RENAL: -MIGUEL ANGEL, creat stable -Straight cath PRN ID: -ID following (Dr. Toribio) * CSF negative thus far * MRSA pneumonia -Continue Diflucan, vancomycin, prophylactic azithromycin, add P ROSSY prophylaxis -BAL today and sent for opportunistic infections -Off pyrimethamine, sulfadiazine, leucovorin, per ID as MRI brain did not show any lesions suggestive of toxoplasmosis -CT chest abdomen and pelvis due to persistent fever rule out abscess- increasing bilateral pulmonary infiltrates, questionable infected cyst right kidney. PROPHY: -SCDs, SQH. -PPI Overall: This patient is critically ill and at very high risk for deterioration. He requires continued ICU level of care.
[2018-10-16] MEDS: Albumin Human 25% Inj 100 ML IV.SIG SCH (22:04)
[2018-10-17] MEDS ORDERED: Sodium Chlor 0.9% Inj 500 ML IV.CONT ONE
[2018-10-17] MEDS ORDERED: Albumin Human 5% Inj 500 ML IV.SIG ONE
[2018-10-17] MEDS: TRIMETHOPRIM IV.SIG SCH ×6 (00:31→12:37)
[2018-10-17] MEDS: SULFAMETHOX IV.SIG SCH ×6 (00:31→12:37)
[2018-10-17] MEDS: WATER IV.SIG SCH ×6 (00:31→12:37)
[2018-10-17] MEDS: DEXTROSE 5% IV.SIG SCH ×6 (00:31→12:37)
[2018-10-17] MEDS: Oral Hygiene Kit OROPHARYNG SCH ×5 (00:32→23:52)
[2018-10-17] MEDS ORDERED: Sod Chloride 0.9% Inj 1,000 ML IV.SIG ONE (01:15)
[2018-10-17] MEDS: Phenylephrine Inj 40 MG in Dextrose 5% in Water Inj 496 ML IV.CONT PRN ×10 (01:35→16:10)
[2018-10-17] MEDS: Morphine Sulfate Oral Liq 10 MG/0.5 ML Syringe PO SCH ×6 (01:45→22:33)
--- NOTE | 2018-10-17 04:34 | P.PCN ---
Date of procedure: 10/17/18 Pre-op diagnosis: Septic shock Post-op diagnosis: same Procedure: US guided central line Central line checklist completed, timeout completed. I wore a surgical cap, mask with protective eyewear, full gown and sterile gloves throughout the procedure. Right shoulder region was prepped using chlorhexidine scrub and draped in sterile fashion. Anesthesia was achieved over the vein using 1% lidocaine. The introducer needle was inserted into the right subclavian vein. Venous blood was withdrawn. The syringe was removed and a guidewire was advanced into the introducer needle. A small incision was made at the skin surface with a scalpel and the introducer needle was exchanged for a dilator over the guidewire. After appropriate dilation was obtained, the dilator was exchanged over the wire for a triple lumen, 7F, antibiotic coated central venous catheter. The wire was removed and the catheter was secured in place at 18 cm with a StatLoc. A sterile central line dressing was placed over the catheter at the insertion site. The patient tolerated the procedure without any hemodynamic compromise. At time of procedure completion, all ports aspirated and flushed properly. Post-procedure chest x-ray is pending at this time. Anesthesia: local Surgeon: Linette Calzada Estimated blood loss (mL): 2 Pathology: none sent Condition: critical Disposition: ICU
--- NOTE | 2018-10-17 05:16 | XR ---
EXAM DATE: 10/17/2018 4:56 AM EST AGE/SEX: 48 years / Male INDICATIONS: Central line placement CLINICAL DATA: This is the patient's initial encounter. Patient reports that signs and symptoms have been present for 1 day and indicates a pain score of Nonresponsive. MEDICAL/SURGICAL HISTORY: . HIV. COPD. HEP C. Pneumocystitis. MRSA. Neuropathy. None. COMPARISON: [facility], CHEST 1V SINGLE AP, 10/16/2018. . FINDINGS: . Tracheostomy in good position. NG enters stomach. Right central line in superior vena cava. Bilater al airspace disease similar to October 16. No pneumothorax. CONCLUSION: Persistent diffuse bilateral airspace disease. Right central line has been placed in superior vena ca va without pneumothorax. Electronically signed by: Isael Tian MD 10/17/2018 5:14 AM EST
[2018-10-17] MEDS: Albumin Human 25% Inj 100 ML IV.SIG SCH ×2 (05:51→14:05)
[2018-10-17] MEDS: Vancomycin Inj 1,350 MG in Sodium Chlor 0.9% Inj 500 ML IV.SIG SCH (05:52)
[2018-10-17] MEDS: QUEtiapine 100 MG Tablet PO SCH ×3 (05:54→22:39)
[2018-10-17] MEDS: Vasopressin Inj 40 UNIT in Dextrose 5% in Water Inj 98 ML IV.CONT PRN ×6 (07:00→18:42)
[2018-10-17 07:23] LABS: Hematocrit 22.3 % (39.0-51.0); Hemoglobin 7.1 gm/dL (13.0-17.0); Mean Corpuscular HGB Conc 31.9 % (32.0-36.0); Mean Corpuscular Hemoglobin 32.3 pg (27.0-34.0); Mean Corpuscular Volume 101.1 fL (80.0-100.0); Mean Platelet Volume 12.4 fL (7.0-11.0); Platelet Count 52 th/mm3 (150-450); Red Blood Count 2.21 mil/mm3 (4.50-5.90); White Blood Count 9.7 th/mm3 (4.0-11.0)
[2018-10-17 07:56] LABS: Calcium 7.6 mg/dL (8.5-10.1); Magnesium 2.2 mg/dL (1.5-2.5); Phosphorus 7.2 mg/dL (2.5-4.9); Potassium 4.9 meq/L (3.5-5.1)
[2018-10-17] MEDS: Beneprotein Powder Packet G-TUBE SCH ×3 (08:24→18:12)
[2018-10-17] MEDS: Chlorhexidine 0.12% Oral Kit 15 ML UDC OROPHARYNG SCH ×2 (08:24→21:03)
[2018-10-17] MEDS: Senna/Docusate Sodium 8.6/50 MG Tablet PO SCH ×2 (08:25→21:04)
[2018-10-17] MEDS: Topiramate 25 MG Tablet PO SCH ×2 (08:25→21:04)
[2018-10-17] MEDS: Famotidine 20 MG Tablet PO SCH ×2 (08:25→21:03)
--- NOTE | 2018-10-17 11:20 | P.PNPAL ---
Reason for Visit Reason for visit: a. To assist with evaluation and management of symptoms including: pain, anxiety, dyspnea b. To assist medical decision maker(s) with: better understanding of current medical conditions; weighing benefits/burdens of medical treatment options; making medical treatment decisions. Subjective Subjective/Interval History: Mr. Morgan is a 48yo male who presented to [facility] via EMS with complaints of seizures and fever. His sister, which whom he lives with reports that she was awoken by her daughter stating that the patient was seizing uncontrollably. She also states that approximately 2 days ago he took his entire bottle of Percocet though she was unable to tell how many pills were in the bottle. She states since then his mental status has been declining, he has been unable to finish sentences and has been noted to be urinating on himself. His past medical history is significant for AIDS, COPD, Hepatitis C, Bipolar disorder, PTSD with remote suicide attempts, and neuropathy. Of note the patient was just discharged from [facility] on 10/05/18. The patient has a history of admission related to AIDS/HIV and related sequelae. His last CD4 count was noted to be 29 on 04/2018. The patient also has a history of non compliance with his antiretroviral therapy as well as other medications. Upon arrival to the emergency room by the patient was confused, tachycardic, and with a core temperature of 101.0. He had waxing and waning mentation and required increasing oxygen support. He was placed on BiPAP 12/5 40% FiO2. Due to his rapid decline the patient was admitted to the MICU for further evaluation and treatment. Neurology and infectious disease consults are pending. Referral was also placed to interventional radiology for LP puncture as there is concern for meningitis and the patient has previously declined further workup. 10/17/18 Palliative care continues to follow with patient for symptom management and continuing conversation for goals of medical care. Evidence of worsening sepsis. Patient declined rapidly yesterday requiring 100% FiO2 and pressor support with neosynephrine and vasopressin. Family was contacted and decided to make patient DNR with no escalation of care. Today the patient is mottled from head to toe. He is breathing erratically over the vent. Lungs with coarse rhonchi throughout and expiratory wheezes. Minimal air movement heard throughout the bases. Currently on fentanyl gtt @ 250mcgs, neosynephrine @ 240mcgs and vasopressin at 6 units. Patient remains hemodynamically unstable. Today's clinical data revealed: * WBC 9.7, Hgb 7.1, Hct 22.3, plt 52 * Na 136, K+ 4.9, Cl 108, Co2 15, BUN 28, creatinine 1.76, glucose 115, PO4 7.2 , Ca 7.6 * CXR: Persistent diffuse bilateral airspace disease. Right central line has been placed in superior vena cava without pneumothorax. * Sputum culture from 10/13 + for MRSA and E. coli Family/Friend Interactions: Was able to provide clinical update to sister, Beata Morgan via phone (C). She had just recently left the hospital as she had been bedside most of the night. We discussed the patient's rapid clinical decline in detail including his continued respiratory failure, acute kidney failure, and hemodynamic instability. Anticipatory guidance was provided concerning what she could expect if the patient continued to decline. We also discussed what to expect if the patient improved though she understands he is not expected to do so. She overall is fairly realistic concerning his prognosis though she does not want to consider compassionate extubation at this time. She has verbalized that no matter what the outcome, she does want her brother to remain comfortable. His sister did make not of concern for patients disposition after he expires. She would benefit from information on indigent burial services. 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 Significant change in goals:: Patient was made a DNR with no escalation of care overnight. Objective Vital Signs: Vital Signs 10/16/18 10:45 10/16/18 11:00 10/16/18 11:15 Temperature Pulse Rate 78 77 76 Respiratory Rate 24 25 H 24 Blood Pressure 97/54 L 93/50 L 94/51 L Pulse Oximetry 92 L 91 L 97 10/16/18 11:27 10/16/18 11:30 10/16/18 11:44 Temperature Pulse Rate 77 Respiratory Rate 24 18 Blood Pressure 94/52 L Pulse Oximetry 93 L 94 L 97 10/16/18 11:45 10/16/18 12:00 10/16/18 12:15 Temperature 98 F Pulse Rate 76 75 76 Respiratory Rate 21 20 19 Blood Pressure 96/54 L 99/57 L 98/54 L Pulse Oximetry 97 100 100 10/16/18 12:30 10/16/18 13:00 10/16/18 13:30 Temperature Pulse Rate 76 76 77 Respiratory Rate 19 19 22 Blood Pressure 93/54 L 94/50 L 88/53 L Pulse Oximetry 100 99 97 10/16/18 14:00 10/16/18 14:11 10/16/18 14:14 Temperature Pulse Rate 78 79 Respiratory Rate 20 21 23 Blood Pressure 89/52 L 90/51 L Pulse Oximetry 96 95 94 L 10/16/18 14:25 10/16/18 14:30 10/16/18 15:00 Temperature Pulse Rate 82 82 84 Respiratory Rate 29 H 29 H 29 H Blood Pressure 88/52 L 93/53 L 99/57 L Pulse Oximetry 94 L 91 L 94 L 10/16/18 15:30 10/16/18 15:38 10/16/18 16:00 Temperature 98.8 F Pulse Rate 82 83 79 Respiratory Rate 27 H 26 H 20 Blood Pressure 94/50 L 91/55 L Pulse Oximetry 97 100 98 10/16/18 16:30 10/16/18 18:40 10/16/18 19:38 Temperature Pulse Rate 78 85 Respiratory Rate 20 21 24 Blood Pressure 93/53 L Pulse Oximetry 94 L 98 10/16/18 20:00 10/17/18 01:06 10/17/18 01:30 Temperature Pulse Rate 85 152 H Respiratory Rate 27 H 28 H Blood Pressure Pulse Oximetry 97 95 10/17/18 01:45 10/17/18 02:00 10/17/18 02:15 Temperature Pulse Rate 152 H 150 H 153 H Respiratory Rate 27 H 27 H 26 H Blood Pressure 75/51 L 78/45 L 75/44 L Pulse Oximetry 97 96 95 10/17/18 02:39 10/17/18 02:45 10/17/18 03:00 Temperature Pulse Rate 153 H 153 H 153 H Respiratory Rate 25 H 25 H 25 H Blood Pressure 74/47 L 70/47 L 68/45 L Pulse Oximetry 93 L 93 L 95 10/17/18 03:15 10/17/18 03:29 10/17/18 03:30 Temperature Pulse Rate 153 H 153 H Respiratory Rate 25 H 24 23 Blood Pressure 67/46 L 72/52 L Pulse Oximetry 95 97 97 10/17/18 03:45 10/17/18 04:00 10/17/18 04:15 Temperature 99.1 F Pulse Rate 152 H 149 H 145 H Respiratory Rate 24 23 34 H Blood Pressure 70/49 L 73/50 L 80/52 L Pulse Oximetry 97 98 99 10/17/18 04:30 10/17/18 04:45 10/17/18 05:00 Temperature Pulse Rate 146 H 145 H 146 H Respiratory Rate 23 11 L 22 Blood Pressure 78/57 L 77/60 L 80/58 L Pulse Oximetry 93 L 95 91 L 10/17/18 05:15 10/17/18 05:30 10/17/18 05:45 Temperature Pulse Rate 148 H 149 H 149 H Respiratory Rate 21 22 22 Blood Pressure 78/57 L 79/60 L 85/60 L Pulse Oximetry 91 L 92 L 92 L 10/17/18 06:00 10/17/18 06:15 10/17/18 06:35 Temperature Pulse Rate 149 H 148 H 96 H Respiratory Rate 24 21 21 Blood Pressure 84/58 L 85/59 L 88/52 L Pulse Oximetry 91 L 92 L 92 L 10/17/18 06:45 10/17/18 07:00 10/17/18 07:01 Temperature Pulse Rate 95 H 96 H 95 H Respiratory Rate 21 21 23 Blood Pressure 85/55 L 90/54 L Pulse Oximetry 91 L 93 L 92 L 10/17/18 07:15 10/17/18 07:30 10/17/18 07:45 Temperature Pulse Rate 96 H 96 H 96 H Respiratory Rate 23 23 24 Blood Pressure 92/56 L 95/58 L 94/56 L Pulse Oximetry 92 L 92 L 93 L 10/17/18 08:00 10/17/18 08:03 10/17/18 08:04 Temperature 98.3 F Pulse Rate 85 94 H Respiratory Rate 23 24 24 Blood Pressure 172/104 H Pulse Oximetry 94 L 94 L 95 10/17/18 08:07 10/17/18 08:08 10/17/18 08:15 Temperature Pulse Rate 95 H 95 H 95 H Respiratory Rate 22 21 21 Blood Pressure 89/56 L 95/61 L Pulse Oximetry 92 L 91 L 10/17/18 08:35 10/17/18 08:45 Temperature Pulse Rate 96 H 97 H Respiratory Rate 21 21 Blood Pressure 108/56 L 98/56 L Pulse Oximetry 91 L 91 L Intake & Output 10/16/18 10/17/18 10/17/18 18:59 06:59 18:59 Intake Total 3133.5 / 3133.5 4316 / 4316 1746.5 / 1746.5 Output Total 1325 / 1325 0 / 0 Balance 1808.5 / 1808.5 4316 / 4316 1746.5 / 1746.5 Weight 123.3 kg Intake: IV 2829.5 / 2829.5 4116 / 4116 1746.5 / 1746.5 Precedex Inj 1,000 MCG In NS 250 / 250 250 / 250 Inj 240 ML @ 0.2 MCG/KG/HR 4.92 mls/hr IV.CONT TITRATE PRN Rx# :[id number] Neosynephrine Inj 40 MG In D5W 500 / 500 500 / 500 Inj 496 ML @ 40 MCG/MIN 30 mls/ hr IV.CONT TITRATE PRN Rx#: [id number] NS Inj 500 ML @ 500 mls/hr IV. 500 / 500 CONT .Q1H ONE Rx#:[id number] Ofirmev Inj 1,000 mg In 100 ml 100 / 100 @ 400 mls/hr IV.SIG ONCE ONE Rx #:[id number] Flexbumin 25% Inj 100 ML @ 12.5 100 / 100 100 / 100 mls/hr IV.SIG Q8H [facility] Rx#: [id number] Alburx 5% Inj 500 ML @ 250 mls/ 500 / 500 hr IV.SIG ONCE ONE Rx#:[id number] Maxipime Inj 2,000 MG In NS Inj 100 / 100 100 / 100 100 / 100 100 ML @ 200 mls/hr IV.SIG Q8H [facility] Rx#:[id number] Diflucan 200 mg Premix Bag 200 400 / 400 ML @ 100 mls/hr IV.SIG Q24H [facility] Rx#:[id number] NS Inj 1,000 ML @ 999 mls/hr IV 1000 / 1000 .SIG .Q1H1M [facility] Rx#:[id number] Bactrim Inj 528 MG In D5W Inj 1066 / 1066 1066 / 1066 533 / 533 500 ML @ 355.333 mls/hr IV.SIG Q6H [facility] Rx#:[id number] Vancomycin Inj 1,350 MG In NS 513.5 / 513.5 513.5 / 513.5 Inj 500 ML @ 250 mls/hr IV.SIG Q18H [facility] Rx#:[id number] fentaNYL 10 mcg/mL Premix Drip 500 / 500 2,500 mcg In 250 ml @ 50 MCG/HR 5 mls/hr IV.SIG TITRATE PRN Rx #:[id number] Tube Feeding 104 / 104 100 / 100 Tube Irrigant 100 / 100 Water Bolus Amount 200 / 200 0 / 0 Output: Urine 0 / 0 Urine Amount (Catheter) 1325 / 1325 0 / 0 Condom 1325 / 1325 Straight 0 / 0 Other: # Incontinent Voids 3 4 Date of Last Bowel Movement 10/14/18 10/14/18 10/14/18 # Bowel Movements 0 # Incontinent Bowel Movements 1 Physical Exam: CONSTITUTIONAL/GENERAL: Intubated and sedated, nonresponsive and appears critically ill TUBES/LINES/DRAINS: PIV, RSC, condom cath, soft restraints, midline trach SKIN: Patient is mottled and from head to toe. His face is essentially purple. EYES: Pupils equal 3mm with questionable reaction. No scleral icterus. No injection or drainage. Fundi not examined. ENT: Unable to assess hearing due to clinical condition. Nose without bleeding or purulent drainage. Oral mucosa dry, with some peeling of the lips CARDIOVASCULAR: Sinus rhythm on telemetry. Peripheral pulses not palpable. +2 edema throughout. Currently supported with Chad @ 240mcg and vasopressin @ 6u RESPIRATORY/CHEST: Mechanically ventilated. Patient will take occasional erratic breaths over the vent which appear extremely labored. Coarse rhonchi throughout with expiratory wheezes, more pronounced on the left. Diminished in the bases GASTROINTESTINAL: Abdomen distended and tympanic. Bowel sounds rare. Periumbilical hernia noted GENITOURINARY: Without palpable bladder distension. Condom catheter in place. MUSCULOSKELETAL: Extremities without clubbing, cyanosis, or edema. NEUROLOGICAL: Sedated. Does not open eyes appear, flaccid x4, no cough/gag. PSYCHIATRIC: Unable to assess due to clinical condition Diagnostic Tests Laboratory: Laboratory Results - last 72 hr 10/14/18 10/14/18 10/14/18 08:39 22:51 23:18 WBC RBC Hgb Hct MCV MCH MCHC RDW Plt Count MPV Prelim Diff (Auto) Neut % (Auto) Lymph % (Auto) Jay % (Auto) Eos % (Auto) Baso % (Auto) Neut # (Auto) Lymph # (Auto) Jay # (Auto) Eos # (Auto) Baso # (Auto) WBC Differential Diff Scan Differential Comment Platelet Estimate Platelet Morphology Tear Drop Cells Puncture Site Right brachial Patient Temperature 98.6 O2 Saturation 89 L* ABG pH 7.44 H ABG pCO2 32 L ABG pO2 62 ABG HCO3 21 L ABG O2 Content 10.1 L ABG Base Excess -2.1 L ABG Methemoglobin 1.9 Hemoglobin 8.0 L Carboxyhemoglobin 0.8 O2 Delivery Device Ventilator Vent Setting Prvc/ac 18/600/ Inspired O2 50 Critical Value Yes Sodium Potassium Chloride Carbon Dioxide Anion Gap BUN Creatinine Estimated GFR Random Glucose Calcium Phosphorus Magnesium Total Bilirubin AST ALT Alkaline Phosphatase Total Protein Albumin Vancomycin Trough 17.2 H MTS Gel Crossmatch See Detail 10/15/18 10/15/18 10/16/18 04:58 04:58 04:15 WBC 2.6 L 7.1 D RBC 2.51 L 2.94 L Hgb 8.2 L 9.6 L Hct 24.3 L 29.2 L MCV 96.9 99.3 MCH 32.8 32.8 MCHC 33.8 33.0 RDW 15.9 16.1 Plt Count 74 L 69 L MPV 10.3 10.7 Prelim Diff (Auto) Slide review pending Neut % (Auto) 76.7 H Lymph % (Auto) 10.9 Jay % (Auto) 8.1 H Eos % (Auto) 3.8 Baso % (Auto) 0.5 Neut # (Auto) 2.0 Lymph # (Auto) 0.3 L Jay # (Auto) 0.2 Eos # (Auto) 0.1 Baso # (Auto) 0.0 WBC Differential . Diff Scan Auto diff confirmed Differential Comment . Platelet Estimate Low L Platelet Morphology Enlarged H Tear Drop Cells 2+ H Puncture Site Patient Temperature O2 Saturation ABG pH ABG pCO2 ABG pO2 ABG HCO3 ABG O2 Content ABG Base Excess ABG Methemoglobin Hemoglobin Carboxyhemoglobin O2 Delivery Device Vent Setting Inspired O2 Critical Value Sodium 143 Potassium 3.6 Chloride 112 H Carbon Dioxide 22.4 Anion Gap 9 BUN 22 H Creatinine 0.94 Estimated GFR 85 L Random Glucose 96 Calcium 7.6 L Phosphorus 3.4 Magnesium 1.9 Total Bilirubin 0.7 AST 120 H ALT 31 Alkaline Phosphatase 229 H Total Protein 6.7 Albumin 1.5 L Vancomycin Trough MTS Gel Crossmatch 10/16/18 10/17/18 10/17/18 04:15 06:17 06:17 WBC 9.7 RBC 2.21 L Hgb 7.1 L D Hct 22.3 L MCV 101.1 H MCH 32.3 MCHC 31.9 L RDW 17.0 Plt Count 52 L MPV 12.4 H Prelim Diff (Auto) Neut % (Auto) Lymph % (Auto) Jay % (Auto) Eos % (Auto) Baso % (Auto) Neut # (Auto) Lymph # (Auto) Jay # (Auto) Eos # (Auto) Baso # (Auto) WBC Differential Diff Scan Differential Comment Platelet Estimate Platelet Morphology Tear Drop Cells Puncture Site Patient Temperature O2 Saturation ABG pH ABG pCO2 ABG pO2 ABG HCO3 ABG O2 Content ABG Base Excess ABG Methemoglobin Hemoglobin Carboxyhemoglobin O2 Delivery Device Vent Setting Inspired O2 Critical Value Sodium 139 136 Potassium 4.0 4.9 D Chloride 110 H 108 H Carbon Dioxide 19.7 L 15.0 L Anion Gap 9 13 BUN 21 H 28 H Creatinine 1.05 1.76 H Estimated GFR 75 L 41 L Random Glucose 100 115 H Calcium 8.1 L 7.6 L Phosphorus 5.0 H D 7.2 H D Magnesium 1.8 2.2 Total Bilirubin AST ALT Alkaline Phosphatase Total Protein Albumin Vancomycin Trough MTS Gel Crossmatch Result Diagrams: 10/17/18 06:17 10/17/18 06:17 Microbiology: Microbiology 10/12/18 22:55 Aerobic Blood Culture - Preliminary Blood - Peripheral No growth in 4 days Anaerobic Blood Culture - Preliminary No growth in 4 days 10/12/18 22:50 Aerobic Blood Culture - Preliminary Blood - Peripheral No growth in 4 days Anaerobic Blood Culture - Preliminary No growth in 4 days 10/13/18 16:00 Gram Stain - Final Sputum - Endotracheal Sputum Culture - Final S. aureus MRSA Escherichia coli 10/13/18 04:28 Gram Stain - Final Sputum - Endotracheal Sputum Culture - Final S. aureus MRSA Escherichia coli 10/12/18 21:50 Urine Culture - Final Catheterized Urine No growth in 48 hours 10/09/18 12:25 Aerobic Blood Culture - Final Blood - Peripheral No growth in 5 days Anaerobic Blood Culture - Final No growth in 5 days 10/09/18 12:20 Aerobic Blood Culture - Final Blood - Peripheral No growth in 5 days Anaerobic Blood Culture - Final No growth in 5 days Imaging: Impressions Chest X-Ray 10/16/18 05:00 CONCLUSION: Bilateral airspace consolidation similar to prior examination. Tracheostomy and nasogastric tube unchanged. Chest X-Ray 10/17/18 04:31 CONCLUSION: Persistent diffuse bilateral airspace disease. Right central line has been placed in superior vena cava without pneumothorax. Procedures: 10/07/18 * Endotracheal intubation 10/08/18 * Lumbar puncture 10/14/18 * Bedside tracheostomy 10/16/18 * [facility] Assessment and Plan - Disease Oriented Problem List (1) Acute encephalopathy (2) Seizure (3) HIV (human immunodeficiency virus infection) - Symptom Scale (1) Dyspnea 0-10 Scale: Unable to quantify Comment: Currently managed by mechanical ventilation (2) Confusion 0-10 Scale: Unable to quantify (3) Pain 0-10 Scale: Unable to quantify Comment: Currently managed with IV fentanyl Pertinent Non-Medical Issues: Psychosocial: The patient has never been and has no children. His sister is only relative. He is currently unable to work and is living with his sister for the past 5 months Spiritual: Unknown Legal: Patient is currently unable to participate in his own medical decision making. The absence of written advanced directives, per [place] statutes his sister, Beata Morgan [phone] would be healthcare proxy Ethical issues impacting care: No known ethical issues impacting care at this time. Important Contacts: Beata Morgan, sister/HCP [phone] Prognosis: The patient has had an abrupt decline in cognitive ability. Functionally he was able to participate in his own ADLs and independent of ambulation prior to this admission. His sister states that he usually just stayed on the house sitting or laying. He has dealt with issues with drug and alcohol abuse for many years. He has multiple admissions concerning for sequelae related to his HIV/AIDS. He also has a concerning history for noncompliance with medical therapy. Given his complex medical history and associated comorbidities, he remains at high risk for further functional and cognitive decline. He remains at increased risk for continued infection, respiratory decline, and . This patient is not expected to survive this hospitalization. Code Status: No Code DNR Plan: * LEGAL DECISION MAKER -patient is currently unable to participate in his own healthcare decision making. In the absence of documented advanced directives, per [place] statutes decision making would fall to his Sister Beata Morgan [phone] by proxy * GOALS -Was able to provide clinical update to sister, Beata Morgan via phone. She had just recently left the hospital as she had been bedside most of the night. We discussed the patient's rapid clinical decline in detail including his continued respiratory failure, acute kidney failure, and hemodynamic instability. Anticipatory guidance was provided concerning what she could expect if the patient continued to decline. We also discussed what to expect if the patient improved though she understands he is not expected to do so. She overall is fairly realistic concerning his prognosis though she does not want to consider compassionate extubation at this time. She has verbalized that no matter what the outcome, she does want her brother to remain comfortable. * CODE STATUS - FULL CODE * SYMPTOMS Pain - multifactorial including bedbound status, blood draws, invasive lines, tubes, procedures, etc. Patient currently managed with IV Fentanyl infusion at 250mcg. At this time the patient is hemodynamically unstable and not expected to survive the hospitalization. If the family decides for compassionate extubation then will make appropriate recommendations at that time. Anxiety - suspected as patient is trached and approaching end of life. Currently managed with Precedex 1mcg/kg/min. Again, if family decides for compassionate extubation, will make further recommendations at that time. Dyspnea - currently mechanically ventilated. Was increased to 100% FiO2. Not currently diuresing appropriately. Defer to critical care. Palliative care will continue to follow during hospital course as condition evolves, to assist patient/decision maker with understanding of medical conditions, weighing benefits/burdens of treatment options, for clarification of goals of treatment. Additionally will assist with any symptoms of palliative concern. Case discussed with Dr. Summers and RN Blade) at bedside. Attestation Attestation: To help prompt me to consider important information that might be impacting today's encounter and assessment, information from prior notes written by myself or my colleagues may have been "brought forward" into today's note. My signature on this note, however, is an attestation that I personally performed the exam, history, and/or decision-making noted today, and, unless otherwise indicated, the interactions with patient, family, and staff as well as the review of records all occurred today. I also attest that the listed assessment and stated plan reflect my best clinical judgment today based on the combination of historical information, prior notes, and today's exam/ interactions. When time spent is documented, it refers only to time spent today by the signer, or if indicated, combined time spent today by collaborating physician/nurse practitioner.
--- NOTE | 2018-10-17 12:25 | P.DIET ---
Nutritional Evaluation Type of nutrition evaluation: follow-up Nutrition consult regarding: Tube Feeding Screening comments: 10/11 TF diet review Subjective Subjective Comments: Assessment here uses SCCM and ASPEN guidelines for critically ill patients Objective - Diagnosis severe sepsis, pneumonia, suspected meningitis - Objective % IBW: 167 (IBW = 130lb) Body Weight Used for Calculations: IBW Energy Needs - Lower Range (kCal/kg): 22 Energy Needs - Upper Range (kCal/kg): 25 Lower Limit kCal/kg (kCals): 1,300 Upper Limit kCal/kg (kCals): 1,477 Lower Limit Protein Factor (Grams per Kg): 1.5 Upper Limit Protein Factor (Grams per Kg): 2.0 Lower Protein Needs (Protein): 89 Upper Protein Needs (Protein): 118 Dietitian Reviewed in Medical Record: Current diet, Curent medications, Intake & Output, Labs, Medical history, Tube feeding Diet Order: NPO, TF Objective Comments: PMH: AIDS, HIV, anxiety, bipolar, COPD, depression, hepatitis C, neuropathy, pneumocystosis pneumonia, PTSD, suicidal ideations Labs: BUN 28, Cr 1.76, GFR 41, Phos 7.2 Assessment Assessment: Pt remains intubated, sedated w/ fentanyl and on mech vent. Pts TF on hold and has only been receiving 10-20mL/hr at a time. Pts overall medical status is declining w/ worsening sepsis, per palliative care note, pt is a no code DNR now. If TF resumes, plan to feed w/ Jevity 1.5 @ 35mL/hr continuous via NGT. Will continue to monitor TF tolerance. Labs reviewed, dietitian following. Recommendations: 1. Pts overall medical status is declining w/ worsening sepsis, per palliative care note, pt is a no code DNR now 2. If TF resumes, plan to feed w/ Jevity 1.5 @ 35mL/hr continuous via NGT 3. Will continue to monitor TF tolerance 4. Dietitian following Dietitian to Monitor: Lab values, Renal labs, Intake & Output, Tube feeding tolerance, Weight change, Medical course
[2018-10-17] MEDS: FLUCONAZOLE 200 MG IV.SIG SCH (12:37)
--- NOTE | 2018-10-17 13:02 | P.CONGI ---
History of Present Illness Consult date: 10/17/18 Consult reason: PEG tube placement Chief complaint: Severe Sepsis, Pneumonia, Suspected Meningitis History of Present Illness: This patient is a 48-year-old male patient with past medical history significant for acute encephalopathy, seizure disorder, HIV with low CD4 count. Patient also has medical history significant for anxiety, bipolar, COPD, depression, hepatitis C, neuropathy, pneumonia and suicidal ideations. There are no recorded history of previous surgeries. Patient currently intubated and mechanically ventilated. Patient has had a rapid clinical decline during admission including respiratory failure, acute kidney failure and hemodynamic instability. Also worsening sepsis. Patient currently on 100% FiO2 and pressure support with Chad- Synephrine and vasopressin. Palliative care following patient. As per Alaina -bedside RN, patient is now DNR status with no further advanced care at this time. Our service was consulted to evaluate patient for PEG tube placement <Le Lin - Last Filed: 10/17/18 12:49> Review of Systems All other systems reviewed negative except as stated in HPI, unobtainable due to mental status, other <Le Lin - Last Filed: 10/17/18 12:49> PMFSH - History History Provided By: Family Member, Medical Record, Radar Repairer / EMT - Medical History Medical History: Medical History (Last Reviewed 10/16/18 @ 09:35 by Constance Martinez) AIDS Anxiety Bipolar 1 disorder COPD (chronic obstructive pulmonary disease) Depression HIV disease Hepatitis C History of MRSA infection Onset Date: ~10/08/18 Neuropathy PTSD (post-traumatic stress disorder) Pneumocystosis pneumonia Suicidal ideations - Surgical History Surgical History: Surgical History (Last Reviewed 10/07/18 @ 17:30 by Brock Roca DO) No history of previous surgery - Family History Family History: Family History (Last Reviewed 10/07/18 @ 17:30 by Brock Roca DO) Other Diabetes mellitus - Tobacco History Second Hand Smoke Exposure: Yes Tobacco Use In Past 30 Days: Yes Smoking Status: Current every day smoker (per sister, patient has struggled with ETOH abuse) Tobacco Type: Cigarettes - Alcohol History How Often Do You Have a Drink Containing Alcohol: Unable to Obtain - Substance Use History Substance History: Past History - Travel History History of Recent Travel: No Recent Travel in the [place] Within the Last 8 Weeks: No Recent Travel Out of the Country Within the Last 8 Weeks: No - Immunization History Tetanus Immunization: Unable to Assess Hx Influenza Vaccine This Season: Yes <Le Lin - Last Filed: 10/17/18 12:49> - Medical History Medical History: Medical History (Last Reviewed 10/16/18 @ 09:35 by Constance Martinez) AIDS Anxiety Bipolar 1 disorder COPD (chronic obstructive pulmonary disease) Depression HIV disease Hepatitis C History of MRSA infection Onset Date: ~10/08/18 Neuropathy PTSD (post-traumatic stress disorder) Pneumocystosis pneumonia Suicidal ideations - Surgical History Surgical History: Surgical History (Last Reviewed 10/07/18 @ 17:30 by Brock Roca DO) No history of previous surgery - Family History Family History: Family History (Last Reviewed 10/07/18 @ 17:30 by Brock Roca DO) Other Diabetes mellitus <Delfin Boyd - Last Filed: 10/17/18 16:57> Medications and Allergies Active Medications: Active Medications Acetaminophen (Tylenol) 650 mg PO Q6H PRN PRN Reason: PAIN 1-10 AND/OR FEVER >101F Last Admin: 10/13/18 23:20 Dose: 650 mg Al Hydroxide/Mg Hydroxide (Milk Of Magnangie Liq) 30 ml PO Q12H PRN PRN Reason: Mild Constipation Albuterol (Albuterol Neb (Prn)) 2.5 mg NEB Q2HR NEB PRN PRN Reason: SHORTNESS OF BREATH/WHEEZING Last Admin: 10/14/18 23:00 Dose: 2.5 mg Albuterol (Duoneb Neb (Michelle)) 1 ampul NEB Q6HR NEB [facility] Last Admin: 10/17/18 08:08 Dose: 1 ampul Azithromycin (Zithromax) 1,200 mg PO WEEKLY [facility] Bisacodyl (Dulcolax Supp) 10 mg RECTAL DAILY PRN PRN Reason: SEVERE CONSITIPATION Chlorhexidine Gluconate (Peridex 0.12% Oral Kit) 15 ml OROPHARYNG BID@0800, 2000 [facility] Last Admin: 10/17/18 08:24 Dose: 15 ml Famotidine (Pepcid) 20 mg PO BID [facility] Last Admin: 10/17/18 08:25 Dose: 20 mg Furosemide (Lasix Inj) 40 mg IV.PUSH Q6HR [facility] Last Admin: 10/17/18 12:37 Dose: 40 mg Heparin Sodium (Porcine) (Heparin Inj) 5,000 units SQ Q8H [facility] Last Admin: 10/13/18 09:57 Dose: 5,000 units Magnesium Sulfate 4 gm/ Sodium (Chloride) 100 mls @ 50 mls/hr IV.SIG UNSCH PRN PRN Reason: For Magnesium 0.9 - 1.1 mg/dL Potassium Chloride (Kcl 40 Meq Premix Inj) 40 meq in 100 mls @ 25 mls/hr IV.SIG Q2H PRN PRN Reason: For Potassium 2.8 - 3.2 mEq/L Potassium Chloride (Kcl 20 Meq Premix Inj) 20 meq in 100 mls @ 50 mls/hr IV.SIG Q2H PRN PRN Reason: For Potassium 3.3 - 3.5 mEq/L Last Infusion: 10/12/18 07:00 Dose: Infused Potassium Chloride (Kcl 40 Meq Premix Inj) 40 meq in 100 mls @ 25 mls/hr IV.SIG UNSCH PRN PRN Reason: For Potassium 3.3 - 3.5 mEq/L Potassium Chloride (Kcl 20 Meq Premix Inj) 20 meq in 100 mls @ 50 mls/hr IV.SIG Q2H PRN PRN Reason: For Potassium 2.8 - 3.2 mEq/L Potassium Phosphate 30 mmol/ (Sodium Chloride) 260 mls @ 42 mls/hr IV.SIG UNSCH PRN PRN Reason: SEE LABEL COMMENTS Sodium Phosphate 30 mmol/ (Sodium Chloride) 260 mls @ 42 mls/hr IV.SIG UNSCH PRN PRN Reason: For Phosphorus < 2.5 mg/dL Magnesium Sulfate 2 gm/ Sodium (Chloride) 100 mls @ 50 mls/hr IV.SIG UNSCH PRN PRN Reason: For Magnesium 1.2 - 1.6 mg/dL Fentanyl (Fentanyl 10 Mcg/Ml Premix Drip) 2,500 mcg in 250 mls @ 5 mls/hr IV.SIG TITRATE PRN; Protocol PRN Reason: Per Protocol Last Admin: 10/16/18 18:22 Dose: 250 mcg/hr, 25 mls/hr Pharmacy Profile Note (Vancomycin Consult Pharmacy) 0 mls @ 0 mls/hr OTHER UNSCH [facility] Fluconazole (Diflucan 200 Mg Premix Bag) 200 mls @ 100 mls/hr IV.SIG Q24H [facility] Last Admin: 10/17/18 12:37 Dose: 100 mls/hr Dexmedetomidine HCl 1,000 mcg/ (Sodium Chloride) 250 mls @ 4.92 mls/hr IV.CONT TITRATE PRN; Protocol PRN Reason: Per Protocol Last Admin: 10/16/18 21:46 Dose: 1.5 mcg/kg/hr, 36.93 mls/hr Vancomycin HCl 1,350 mg/ (Sodium Chloride) 513.5 mls @ 250 mls/hr IV.SIG Q18H [facility] Last Infusion: 10/17/18 09:25 Dose: Infused Trimethoprim/Sulfamethoxazole (528 mg/ Dextrose) 533 mls @ 355.333 mls/hr IV.SIG Q6H [facility] Last Admin: 10/17/18 12:37 Dose: 355.33 mls/hr Cefepime HCl 2,000 mg/ Sodium (Chloride) 100 mls @ 200 mls/hr IV.SIG Q8H [facility] Last Infusion: 10/17/18 11:41 Dose: Infused Albumin Human (Flexbumin 25% Inj) 100 mls @ 12.5 mls/hr IV.SIG Q8H MIC[facility] Stop: 10/17/18 21:59 Last Infusion: 10/17/18 07:52 Dose: Infused Phenylephrine HCl 40 mg/ (Dextrose) 500 mls @ 30 mls/hr IV.CONT TITRATE PRN; Protocol PRN Reason: Per Protocol Last Titration: 10/17/18 11:00 Dose: 200 mcg/min, 150 mls/hr Vasopressin 40 unit/ Dextrose 100 mls @ 1.5 mls/hr IV.CONT TITRATE PRN; Protocol PRN Reason: Per Protocol Lactulose (Lactulose Liq) 30 ml PO DAILY PRN PRN Reason: SEVERE CONSITIPATION Magnesium Oxide (Mag-Ox) 800 mg PO UNSCH PRN PRN Reason: For Magnesium 1.2 - 1.6 mg/dL Miscellaneous Information ([facility] Ordered Lab Info) 0 each OTHER ONCE ONE Stop: 10/17/18 21:46 Miscellaneous Medication () 1 each OROPHARYNG 0000,0400,1200,1600 [facility] Last Admin: 10/17/18 12:38 Dose: 1 each Morphine Sulfate (Roxanol Liq) 10 mg PO Q4H [facility] Last Admin: 10/17/18 10:27 Dose: Not Given Ondansetron HCl (Zofran Inj) 4 mg IV.PUSH Q6H PRN PRN Reason: NAUSEA OR VOMITING Potassium Bicarb/Potassium Chloride (K-Lyte Cl Eff) 50 meq PO UNSCH PRN PRN Reason: For Potassium 3.3 - 3.5 mEq/L Potassium Phosphate (K-Phos Original) 2,000 mg PO Q4H PRN PRN Reason: Phosphorus Less Than 2.5 mg/dL Potassium Phosphate (K-Phos Original) 2,000 mg PO UNSCH PRN PRN Reason: SEE LABEL COMMENTS Last Admin: 10/09/18 09:31 Dose: 2,000 mg Propranolol HCl (Inderal) 20 mg PO Q8HR [facility] Last Admin: 10/17/18 05:53 Dose: Not Given Quetiapine Fumarate (Seroquel) 100 mg PO Q8HR [facility] Last Admin: 10/17/18 05:54 Dose: 100 mg Senna/Docusate Sodium (Misa-Colace) 1 tab PO BID [facility] Last Admin: 10/17/18 08:25 Dose: 1 tab Sennosides (Senokot) 17.2 mg PO Q12H PRN PRN Reason: Moderate Constipation Sodium Chloride (Ns Flush) 2 ml IV.FLUSH BID [facility] Last Admin: 10/17/18 08:24 Dose: 2 ml Sodium Chloride (Ns Flush) 2 ml IV.FLUSH PRN PRN PRN Reason: FLUSH AFTER USING IV ACCESS Last Admin: 10/17/18 08:24 Dose: 2 ml Terbutaline Sulfate (Brethine Inj) 1 mg SQ UNSCH PRN PRN Reason: For Extravasation Topiramate (Topamax) 50 mg PO BID [facility] Last Admin: 10/17/18 08:25 Dose: 50 mg Whey (Beneprotein Powder) 2 packet G-TUBE TID [facility] Last Admin: 10/17/18 12:38 Dose: Not Given Ziprasidone (Geodon Inj) 10 mg IM Q12H PRN PRN Reason: AGITATION Last Admin: 10/15/18 22:16 Dose: 10 mg <Lin,Le - Last Filed: 10/17/18 12:49> Active Medications: Active Medications Acetaminophen (Tylenol) 650 mg PO Q6H PRN PRN Reason: PAIN 1-10 AND/OR FEVER >101F Last Admin: 10/13/18 23:20 Dose: 650 mg Al Hydroxide/Mg Hydroxide (Milk Of Magnangie Liq) 30 ml PO Q12H PRN PRN Reason: Mild Constipation Albuterol (Albuterol Neb (Prn)) 2.5 mg NEB Q2HR NEB PRN PRN Reason: SHORTNESS OF BREATH/WHEEZING Last Admin: 10/14/18 23:00 Dose: 2.5 mg Albuterol (Duoneb Neb (Michelle)) 1 ampul NEB Q6HR NEB [facility] Last Admin: 10/17/18 15:18 Dose: 1 ampul Azithromycin (Zithromax) 1,200 mg PO WEEKLY [facility] Bisacodyl (Dulcolax Supp) 10 mg RECTAL DAILY PRN PRN Reason: SEVERE CONSITIPATION Chlorhexidine Gluconate (Peridex 0.12% Oral Kit) 15 ml OROPHARYNG BID@0800, 2000 [facility] Last Admin: 10/17/18 08:24 Dose: 15 ml Famotidine (Pepcid) 10 mg PO BID [facility] Furosemide (Lasix Inj) 40 mg IV.PUSH Q6HR [facility] Last Admin: 10/17/18 12:37 Dose: 40 mg Heparin Sodium (Porcine) (Heparin Inj) 5,000 units SQ Q8H [facility] Last Admin: 10/13/18 09:57 Dose: 5,000 units Magnesium Sulfate 4 gm/ Sodium (Chloride) 100 mls @ 50 mls/hr IV.SIG UNSCH PRN PRN Reason: For Magnesium 0.9 - 1.1 mg/dL Potassium Chloride (Kcl 40 Meq Premix Inj) 40 meq in 100 mls @ 25 mls/hr IV.SIG Q2H PRN PRN Reason: For Potassium 2.8 - 3.2 mEq/L Potassium Chloride (Kcl 20 Meq Premix Inj) 20 meq in 100 mls @ 50 mls/hr IV.SIG Q2H PRN PRN Reason: For Potassium 3.3 - 3.5 mEq/L Last Infusion: 10/12/18 07:00 Dose: Infused Potassium Chloride (Kcl 40 Meq Premix Inj) 40 meq in 100 mls @ 25 mls/hr IV.SIG UNSCH PRN PRN Reason: For Potassium 3.3 - 3.5 mEq/L Potassium Chloride (Kcl 20 Meq Premix Inj) 20 meq in 100 mls @ 50 mls/hr IV.SIG Q2H PRN PRN Reason: For Potassium 2.8 - 3.2 mEq/L Potassium Phosphate 30 mmol/ (Sodium Chloride) 260 mls @ 42 mls/hr IV.SIG UNSCH PRN PRN Reason: SEE LABEL COMMENTS Sodium Phosphate 30 mmol/ (Sodium Chloride) 260 mls @ 42 mls/hr IV.SIG UNSCH PRN PRN Reason: For Phosphorus < 2.5 mg/dL Magnesium Sulfate 2 gm/ Sodium (Chloride) 100 mls @ 50 mls/hr IV.SIG UNSCH PRN PRN Reason: For Magnesium 1.2 - 1.6 mg/dL Fentanyl (Fentanyl 10 Mcg/Ml Premix Drip) 2,500 mcg in 250 mls @ 5 mls/hr IV.SIG TITRATE PRN; Protocol PRN Reason: Per Protocol Last Admin: 10/17/18 14:29 Dose: 250 mcg/hr, 25 mls/hr Pharmacy Profile Note (Vancomycin Consult Pharmacy) 0 mls @ 0 mls/hr OTHER UNSCH [facility] Fluconazole (Diflucan 200 Mg Premix Bag) 200 mls @ 100 mls/hr IV.SIG Q24H [facility] Last Infusion: 10/17/18 14:47 Dose: Infused Dexmedetomidine HCl 1,000 mcg/ (Sodium Chloride) 250 mls @ 4.92 mls/hr IV.CONT TITRATE PRN; Protocol PRN Reason: Per Protocol Last Admin: 10/17/18 14:30 Dose: 1 mcg/kg/hr, 24.62 mls/hr Vancomycin HCl 1,350 mg/ (Sodium Chloride) 513.5 mls @ 250 mls/hr IV.SIG Q18H [facility] Last Infusion: 10/17/18 09:25 Dose: Infused Cefepime HCl 2,000 mg/ Sodium (Chloride) 100 mls @ 200 mls/hr IV.SIG Q8H [facility] Last Infusion: 10/17/18 11:41 Dose: Infused Albumin Human (Flexbumin 25% Inj) 100 mls @ 12.5 mls/hr IV.SIG Q8H [facility] Stop: 10/17/18 21:59 Last Infusion: 10/17/18 14:47 Dose: Infused Phenylephrine HCl 40 mg/ (Dextrose) 500 mls @ 30 mls/hr IV.CONT TITRATE PRN; Protocol PRN Reason: Per Protocol Last Admin: 10/17/18 16:10 Dose: 80 mcg/min, 60 mls/hr Vasopressin 40 unit/ Dextrose 100 mls @ 1.5 mls/hr IV.CONT TITRATE PRN; Protocol PRN Reason: Per Protocol Lactulose (Lactulose Liq) 30 ml PO DAILY PRN PRN Reason: SEVERE CONSITIPATION Magnesium Oxide (Mag-Ox) 800 mg PO UNSCH PRN PRN Reason: For Magnesium 1.2 - 1.6 mg/dL Miscellaneous Information ([facility] Ordered [place] Info) 0 each OTHER ONCE ONE Stop: 10/17/18 21:46 Miscellaneous Medication () 1 each OROPHARYNG 0000,0400,1200,1600 [facility] Last Admin: 10/17/18 15:35 Dose: 1 each Morphine Sulfate (Roxanol Liq) 10 mg PO Q4H [facility] Last Admin: 10/17/18 14:06 Dose: Not Given Ondansetron HCl (Zofran Inj) 4 mg IV.PUSH Q6H PRN PRN Reason: NAUSEA OR VOMITING Potassium Bicarb/Potassium Chloride (K-Lyte Cl Eff) 50 meq PO UNSCH PRN PRN Reason: For Potassium 3.3 - 3.5 mEq/L Potassium Phosphate (K-Phos Original) 2,000 mg PO Q4H PRN PRN Reason: Phosphorus Less Than 2.5 mg/dL Potassium Phosphate (K-Phos Original) 2,000 mg PO UNSCH PRN PRN Reason: SEE LABEL COMMENTS Last Admin: 10/09/18 09:31 Dose: 2,000 mg Propranolol HCl (Inderal) 20 mg PO Q8HR [facility] Last Admin: 10/17/18 14:06 Dose: Not Given Quetiapine Fumarate (Seroquel) 100 mg PO Q8HR [facility] Last Admin: 10/17/18 14:06 Dose: 100 mg Senna/Docusate Sodium (Misa-Colace) 1 tab PO BID [facility] Last Admin: 10/17/18 08:25 Dose: 1 tab Sennosides (Senokot) 17.2 mg PO Q12H PRN PRN Reason: Moderate Constipation Sodium Chloride (Ns Flush) 2 ml IV.FLUSH BID [facility] Last Admin: 10/17/18 08:24 Dose: 2 ml Sodium Chloride (Ns Flush) 2 ml IV.FLUSH PRN PRN PRN Reason: FLUSH AFTER USING IV ACCESS Last Admin: 10/17/18 08:24 Dose: 2 ml Terbutaline Sulfate (Brethine Inj) 1 mg SQ UNSCH PRN PRN Reason: For Extravasation Topiramate (Topamax) 50 mg PO BID [facility] Last Admin: 10/17/18 08:25 Dose: 50 mg Whey (Beneprotein Powder) 2 packet G-TUBE TID [facility] Last Admin: 10/17/18 12:38 Dose: Not Given Ziprasidone (Geodon Inj) 10 mg IM Q12H PRN PRN Reason: AGITATION Last Admin: 10/15/18 22:16 Dose: 10 mg <Deb,Mohammad A - Last Filed: 10/17/18 16:57> Allergies Allergy/AdvReac Type Severity Reaction Status Date / Time haloperidol Allergy Severe Swelling Verified 09/25/18 17:57 Exam Vital signs: Vital Signs 10/16/18 13:00 10/16/18 13:30 10/16/18 14:00 Temperature Pulse Rate 76 77 78 Respiratory Rate 19 22 20 Blood Pressure 94/50 L 88/53 L 89/52 L Pulse Oximetry 99 97 96 10/16/18 14:11 10/16/18 14:14 10/16/18 14:25 Temperature Pulse Rate 79 82 Respiratory Rate 21 23 29 H Blood Pressure 90/51 L 88/52 L Pulse Oximetry 95 94 L 94 L 10/16/18 14:30 10/16/18 15:00 10/16/18 15:30 Temperature Pulse Rate 82 84 82 Respiratory Rate 29 H 29 H 27 H Blood Pressure 93/53 L 99/57 L 94/50 L Pulse Oximetry 91 L 94 L 97 10/16/18 15:38 10/16/18 16:00 10/16/18 16:30 Temperature 98.8 F Pulse Rate 83 79 78 Respiratory Rate 26 H 20 20 Blood Pressure 91/55 L 93/53 L Pulse Oximetry 100 98 94 L 10/16/18 18:40 10/16/18 19:38 10/16/18 20:00 Temperature Pulse Rate 85 85 Respiratory Rate 21 24 Blood Pressure Pulse Oximetry 98 10/17/18 01:06 10/17/18 01:30 10/17/18 01:45 Temperature Pulse Rate 152 H 152 H Respiratory Rate 27 H 28 H 27 H Blood Pressure 75/51 L Pulse Oximetry 97 95 97 10/17/18 02:00 10/17/18 02:15 10/17/18 02:39 Temperature Pulse Rate 150 H 153 H 153 H Respiratory Rate 27 H 26 H 25 H Blood Pressure 78/45 L 75/44 L 74/47 L Pulse Oximetry 96 95 93 L 10/17/18 02:45 10/17/18 03:00 10/17/18 03:15 Temperature Pulse Rate 153 H 153 H 153 H Respiratory Rate 25 H 25 H 25 H Blood Pressure 70/47 L 68/45 L 67/46 L Pulse Oximetry 93 L 95 95 10/17/18 03:29 10/17/18 03:30 10/17/18 03:45 Temperature Pulse Rate 153 H 152 H Respiratory Rate 24 23 24 Blood Pressure 72/52 L 70/49 L Pulse Oximetry 97 97 97 10/17/18 04:00 10/17/18 04:15 10/17/18 04:30 Temperature 99.1 F Pulse Rate 149 H 145 H 146 H Respiratory Rate 23 34 H 23 Blood Pressure 73/50 L 80/52 L 78/57 L Pulse Oximetry 98 99 93 L 10/17/18 04:45 10/17/18 05:00 10/17/18 05:15 Temperature Pulse Rate 145 H 146 H 148 H Respiratory Rate 11 L 22 21 Blood Pressure 77/60 L 80/58 L 78/57 L Pulse Oximetry 95 91 L 91 L 10/17/18 05:30 10/17/18 05:45 10/17/18 06:00 Temperature Pulse Rate 149 H 149 H 149 H Respiratory Rate 22 22 24 Blood Pressure 79/60 L 85/60 L 84/58 L Pulse Oximetry 92 L 92 L 91 L 10/17/18 06:15 10/17/18 06:35 10/17/18 06:45 Temperature Pulse Rate 148 H 96 H 95 H Respiratory Rate 21 21 21 Blood Pressure 85/59 L 88/52 L 85/55 L Pulse Oximetry 92 L 92 L 91 L 10/17/18 07:00 10/17/18 07:01 10/17/18 07:15 Temperature Pulse Rate 96 H 95 H 96 H Respiratory Rate 21 23 23 Blood Pressure 90/54 L 92/56 L Pulse Oximetry 93 L 92 L 92 L 10/17/18 07:30 10/17/18 07:45 10/17/18 08:00 Temperature 98.3 F Pulse Rate 96 H 96 H 85 Respiratory Rate 23 24 23 Blood Pressure 95/58 L 94/56 L Pulse Oximetry 92 L 93 L 94 L 10/17/18 08:03 10/17/18 08:04 10/17/18 08:07 Temperature Pulse Rate 94 H 95 H Respiratory Rate 24 24 22 Blood Pressure 172/104 H 89/56 L Pulse Oximetry 94 L 95 92 L 10/17/18 08:08 10/17/18 08:15 10/17/18 08:35 Temperature Pulse Rate 95 H 95 H 96 H Respiratory Rate 21 21 21 Blood Pressure 95/61 L 108/56 L Pulse Oximetry 91 L 91 L 10/17/18 08:45 Temperature Pulse Rate 97 H Respiratory Rate 21 Blood Pressure 98/56 L Pulse Oximetry 91 L Intake & Output 10/16/18 10/17/18 10/17/18 18:59 06:59 18:59 Intake Total 3133.5 / 3133.5 4316 / 4316 2346.5 / 2346.5 Output Total 1325 / 1325 0 / 0 Balance 1808.5 / 1808.5 4316 / 4316 2346.5 / 2346.5 Weight 123.3 kg Intake: IV 2829.5 / 2829.5 4116 / 4116 2346.5 / 2346.5 Precedex Inj 1,000 MCG In NS 250 / 250 250 / 250 Inj 240 ML @ 0.2 MCG/KG/HR 4.92 mls/hr IV.CONT TITRATE PRN Rx# :[id number] Neosynephrine Inj 40 MG In D5W 500 / 500 1000 / 1000 Inj 496 ML @ 40 MCG/MIN 30 mls/ hr IV.CONT TITRATE PRN Rx#: [id number] NS Inj 500 ML @ 500 mls/hr IV. 500 / 500 CONT .Q1H ONE Rx#:[id number] Ofirmev Inj 1,000 mg In 100 ml 100 / 100 @ 400 mls/hr IV.SIG ONCE ONE Rx #:[id number] Flexbumin 25% Inj 100 ML @ 12.5 100 / 100 100 / 100 mls/hr IV.SIG Q8H [facility] Rx#: [id number] Alburx 5% Inj 500 ML @ 250 mls/ 500 / 500 hr IV.SIG ONCE ONE Rx#:[id number] Maxipime Inj 2,000 MG In NS Inj 100 / 100 100 / 100 200 / 200 100 ML @ 200 mls/hr IV.SIG Q8H [facility] Rx#:[id number] Diflucan 200 mg Premix Bag 200 400 / 400 ML @ 100 mls/hr IV.SIG Q24H [facility] Rx#:[id number] NS Inj 1,000 ML @ 999 mls/hr IV 1000 / 1000 .SIG .Q1H1M ONE Rx#:[id number] Bactrim Inj 528 MG In D5W Inj 1066 / 1066 1066 / 1066 533 / 533 500 ML @ 355.333 mls/hr IV.SIG Q6H [facility] Rx#:[id number] Vancomycin Inj 1,350 MG In NS 513.5 / 513.5 513.5 / 513.5 Inj 500 ML @ 250 mls/hr IV.SIG Q18H [facility] Rx#:[id number] fentaNYL 10 mcg/mL Premix Drip 500 / 500 2,500 mcg In 250 ml @ 50 MCG/HR 5 mls/hr IV.SIG TITRATE PRN Rx #:[id number] Tube Feeding 104 / 104 100 / 100 Tube Irrigant 100 / 100 Water Bolus Amount 200 / 200 0 / 0 Output: Urine 0 / 0 Urine Amount (Catheter) 1325 / 1325 0 / 0 Condom 1325 / 1325 Straight 0 / 0 Other: # Incontinent Voids 3 4 Date of Last Bowel Movement 10/14/18 10/14/18 10/14/18 # Bowel Movements 0 # Incontinent Bowel Movements 1 - Constitutional moderate distress, chronically ill appearing - Routine HEENT Exam Head: Present: normocephalic - Routine Respiratory Exam Present: patient mechanically ventilated - Routine Cardiovascular Exam Present: RRR - Routine Abdominal Exam Present: normoactive bowel sounds. Absent: firm - Routine Extremities Exam Present: cyanosis - Routine Skin Exam Present: dry, mottling <Lin,Le - Last Filed: 10/17/18 12:49> Vital signs: Vital Signs 10/16/18 18:40 10/16/18 19:38 10/16/18 20:00 Temperature Pulse Rate 85 85 Respiratory Rate 21 24 Blood Pressure Pulse Oximetry 98 10/17/18 01:06 10/17/18 01:30 10/17/18 01:45 Temperature Pulse Rate 152 H 152 H Respiratory Rate 27 H 28 H 27 H Blood Pressure 75/51 L Pulse Oximetry 97 95 97 10/17/18 02:00 10/17/18 02:15 10/17/18 02:39 Temperature Pulse Rate 150 H 153 H 153 H Respiratory Rate 27 H 26 H 25 H Blood Pressure 78/45 L 75/44 L 74/47 L Pulse Oximetry 96 95 93 L 10/17/18 02:45 10/17/18 03:00 10/17/18 03:15 Temperature Pulse Rate 153 H 153 H 153 H Respiratory Rate 25 H 25 H 25 H Blood Pressure 70/47 L 68/45 L 67/46 L Pulse Oximetry 93 L 95 95 10/17/18 03:29 10/17/18 03:30 10/17/18 03:45 Temperature Pulse Rate 153 H 152 H Respiratory Rate 24 23 24 Blood Pressure 72/52 L 70/49 L Pulse Oximetry 97 97 97 10/17/18 04:00 10/17/18 04:15 10/17/18 04:30 Temperature 99.1 F Pulse Rate 149 H 145 H 146 H Respiratory Rate 23 34 H 23 Blood Pressure 73/50 L 80/52 L 78/57 L Pulse Oximetry 98 99 93 L 10/17/18 04:45 10/17/18 05:00 10/17/18 05:15 Temperature Pulse Rate 145 H 146 H 148 H Respiratory Rate 11 L 22 21 Blood Pressure 77/60 L 80/58 L 78/57 L Pulse Oximetry 95 91 L 91 L 10/17/18 05:30 10/17/18 05:45 10/17/18 06:00 Temperature Pulse Rate 149 H 149 H 149 H Respiratory Rate 22 22 24 Blood Pressure 79/60 L 85/60 L 84/58 L Pulse Oximetry 92 L 92 L 91 L 10/17/18 06:15 10/17/18 06:35 10/17/18 06:45 Temperature Pulse Rate 148 H 96 H 95 H Respiratory Rate 21 21 21 Blood Pressure 85/59 L 88/52 L 85/55 L Pulse Oximetry 92 L 92 L 91 L 10/17/18 07:00 10/17/18 07:01 10/17/18 07:15 Temperature Pulse Rate 96 H 95 H 96 H Respiratory Rate 21 23 23 Blood Pressure 90/54 L 92/56 L Pulse Oximetry 93 L 92 L 92 L 10/17/18 07:30 10/17/18 07:45 10/17/18 08:00 Temperature 98.3 F Pulse Rate 96 H 96 H 85 Respiratory Rate 23 24 23 Blood Pressure 95/58 L 94/56 L Pulse Oximetry 92 L 93 L 94 L 10/17/18 08:03 10/17/18 08:04 10/17/18 08:07 Temperature Pulse Rate 94 H 95 H Respiratory Rate 24 24 22 Blood Pressure 172/104 H 89/56 L Pulse Oximetry 94 L 95 92 L 10/17/18 08:08 10/17/18 08:15 10/17/18 08:35 Temperature Pulse Rate 95 H 95 H 96 H Respiratory Rate 21 21 21 Blood Pressure 95/61 L 108/56 L Pulse Oximetry 91 L 91 L 10/17/18 08:45 10/17/18 09:00 10/17/18 09:01 Temperature Pulse Rate 97 H 99 H 99 H Respiratory Rate 21 19 22 Blood Pressure 98/56 L 103/59 L Pulse Oximetry 91 L 91 L 91 L 10/17/18 09:15 10/17/18 09:30 10/17/18 09:45 Temperature Pulse Rate 100 H 102 H 104 H Respiratory Rate 20 21 25 H Blood Pressure 104/63 105/60 105/59 L Pulse Oximetry 91 L 92 L 91 L 10/17/18 10:00 10/17/18 10:15 10/17/18 10:30 Temperature Pulse Rate 104 H 104 H 103 H Respiratory Rate 28 H 37 H 36 H Blood Pressure 104/59 L 102/54 L 100/58 L Pulse Oximetry 92 L 92 L 92 L 10/17/18 10:45 10/17/18 11:00 10/17/18 11:15 Temperature Pulse Rate 102 H 101 H 101 H Respiratory Rate 35 H 36 H 35 H Blood Pressure 99/59 L 99/58 L 100/59 L Pulse Oximetry 93 L 92 L 90 L 10/17/18 11:30 10/17/18 11:45 10/17/18 12:00 Temperature 98.4 F Pulse Rate 101 H 100 H 100 H Respiratory Rate 36 H 36 H 36 H Blood Pressure 100/62 97/61 L 97/60 L Pulse Oximetry 90 L 93 L 93 L 10/17/18 12:15 10/17/18 12:30 10/17/18 12:45 Temperature Pulse Rate 100 H 100 H 98 H Respiratory Rate 33 H 33 H Blood Pressure 98/64 L 100/63 94/60 L Pulse Oximetry 93 L 94 L 93 L 10/17/18 12:59 10/17/18 13:00 10/17/18 13:15 Temperature Pulse Rate 97 H 96 H Respiratory Rate 20 Blood Pressure 95/58 L 94/60 L Pulse Oximetry 93 L 93 L 94 L 10/17/18 13:30 10/17/18 13:45 10/17/18 14:00 Temperature Pulse Rate 96 H 96 H 96 H Respiratory Rate Blood Pressure 93/64 L 94/62 L 94/61 L Pulse Oximetry 94 L 94 L 94 L 10/17/18 14:15 10/17/18 14:30 10/17/18 14:46 Temperature Pulse Rate 96 H 97 H 97 H Respiratory Rate Blood Pressure 94/58 L 97/61 L 97/57 L Pulse Oximetry 94 L 93 L 94 L 10/17/18 15:00 10/17/18 15:15 10/17/18 15:18 Temperature Pulse Rate 97 H 96 H Respiratory Rate 19 Blood Pressure 96/56 L 94/57 L Pulse Oximetry 93 L 94 L 96 10/17/18 15:19 10/17/18 15:30 10/17/18 15:35 Temperature Pulse Rate 96 H 96 H Respiratory Rate 19 19 Blood Pressure 93/57 L Pulse Oximetry 94 L 10/17/18 15:45 10/17/18 16:00 10/17/18 16:15 Temperature 97.6 F Pulse Rate 95 H 94 H 93 H Respiratory Rate Blood Pressure 94/57 L 96/54 L 92/56 L Pulse Oximetry 94 L 96 97 Intake & Output 10/16/18 10/17/18 10/17/18 18:59 06:59 18:59 Intake Total 3133.5 / 3133.5 4316 / 4316 3679.5 / 3679.5 Output Total 1325 / 1325 0 / 0 Balance 1808.5 / 1808.5 4316 / 4316 3679.5 / 3679.5 Weight 123.3 kg Intake: IV 2829.5 / 2829.5 4116 / 4116 3679.5 / 3679.5 Precedex Inj 1,000 MCG In NS 250 / 250 250 / 250 250 / 250 Inj 240 ML @ 0.2 MCG/KG/HR 4.92 mls/hr IV.CONT TITRATE PRN Rx# :[id number] Neosynephrine Inj 40 MG In D5W 500 / 500 1000 / 1000 Inj 496 ML @ 40 MCG/MIN 30 mls/ hr IV.CONT TITRATE PRN Rx#: [id number] NS Inj 500 ML @ 500 mls/hr IV. 500 / 500 CONT .Q1H ONE Rx#:[id number] Ofirmev Inj 1,000 mg In 100 ml 100 / 100 @ 400 mls/hr IV.SIG ONCE ONE Rx #:[id number] Flexbumin 25% Inj 100 ML @ 12.5 100 / 100 200 / 200 mls/hr IV.SIG Q8H [facility] Rx#: [id number] Alburx 5% Inj 500 ML @ 250 mls/ 500 / 500 hr IV.SIG ONCE ONE Rx#:[id number] Maxipime Inj 2,000 MG In NS Inj 100 / 100 100 / 100 200 / 200 100 ML @ 200 mls/hr IV.SIG Q8H [facility] Rx#:[id number] Diflucan 200 mg Premix Bag 200 400 / 400 200 / 200 ML @ 100 mls/hr IV.SIG Q24H [facility] Rx#:[id number] NS Inj 1,000 ML @ 999 mls/hr IV 1000 / 1000 .SIG .Q1H1M ONE Rx#:[id number] Bactrim Inj 528 MG In D5W Inj 1066 / 1066 1066 / 1066 1066 / 1066 500 ML @ 355.333 mls/hr IV.SIG Q6H [facility] Rx#:[id number] Vancomycin Inj 1,350 MG In NS 513.5 / 513.5 513.5 / 513.5 Inj 500 ML @ 250 mls/hr IV.SIG Q18H [facility] Rx#:[id number] fentaNYL 10 mcg/mL Premix Drip 500 / 500 250 / 250 2,500 mcg In 250 ml @ 50 MCG/HR 5 mls/hr IV.SIG TITRATE PRN Rx #:[id number] Tube Feeding 104 / 104 100 / 100 Tube Irrigant 100 / 100 Water Bolus Amount 200 / 200 0 / 0 Output: Urine 0 / 0 Urine Amount (Catheter) 1325 / 1325 0 / 0 Condom 1325 / 1325 Straight 0 / 0 Other: # Incontinent Voids 3 4 Date of Last Bowel Movement 10/14/18 10/14/18 10/14/18 # Bowel Movements 0 # Incontinent Bowel Movements 1 <Delfin Boyd - Last Filed: 10/17/18 16:57> Results - Labs CBC & Chem 7: 10/17/18 06:17 10/17/18 06:17 Labs: Laboratory Results - last 24 hr 10/14/18 10/17/18 10/17/18 08:39 06:17 06:17 WBC 9.7 RBC 2.21 L Hgb 7.1 L D Hct 22.3 L MCV 101.1 H MCH 32.3 MCHC 31.9 L RDW 17.0 Plt Count 52 L MPV 12.4 H Sodium 136 Potassium 4.9 D Chloride 108 H Carbon Dioxide 15.0 L Anion Gap 13 BUN 28 H Creatinine 1.76 H Estimated GFR 41 L Random Glucose 115 H Calcium 7.6 L Phosphorus 7.2 H D Magnesium 2.2 MTS Gel Crossmatch See Detail - Imaging Impressions Chest X-Ray 10/17/18 04:31 CONCLUSION: Persistent diffuse bilateral airspace disease. Right central line has been placed in superior vena cava without pneumothorax. <Le Lin - Last Filed: 10/17/18 12:49> - Labs CBC & Chem 7: 10/17/18 06:17 10/17/18 06:17 Labs: Laboratory Results - last 24 hr 10/14/18 10/17/18 10/17/18 08:39 06:17 06:17 WBC 9.7 RBC 2.21 L Hgb 7.1 L D Hct 22.3 L MCV 101.1 H MCH 32.3 MCHC 31.9 L RDW 17.0 Plt Count 52 L MPV 12.4 H Sodium 136 Potassium 4.9 D Chloride 108 H Carbon Dioxide 15.0 L Anion Gap 13 BUN 28 H Creatinine 1.76 H Estimated GFR 41 L Random Glucose 115 H Calcium 7.6 L Phosphorus 7.2 H D Magnesium 2.2 MTS Gel Crossmatch See Detail - Imaging Impressions Chest X-Ray 10/17/18 04:31 CONCLUSION: Persistent diffuse bilateral airspace disease. Right central line has been placed in superior vena cava without pneumothorax. <Delfin Boyd - Last Filed: 10/17/18 16:57> Assessment and Plan (1) PEG (percutaneous endoscopic gastrostomy) adjustment/replacement/removal Status: Acute Code(s): Z43.1 - Encounter for attention to gastrostomy - Plan This patient is a 48-year-old male patient with past medical history significant for acute encephalopathy, seizure disorder, HIV with low CD4 count. Patient also has medical history significant for anxiety, bipolar, COPD, depression, hepatitis C, neuropathy, pneumonia and suicidal ideations. There are no recorded history of previous surgeries. Patient currently intubated and mechanically ventilated. Patient has had a rapid clinical decline during admission including respiratory failure, acute kidney failure and hemodynamic instability. Also worsening sepsis. Patient currently on 100% FiO2 and pressure support with Chad- Synephrine and vasopressin. Palliative care following patient. As per Alaina -bedside RN, patient is now DNR status with no further advanced care at this time. Our service was consulted to evaluate patient for PEG tube placement Plan -N.p.o. -Supportive care -Palliative care following -Tube feeding as per dietitian consult if feedings restart -GI will sign off at this time as no further advanced care procedures to be done , please notify if needed This patient has been seen by myself and Dr. Boyd and this note is written on his behalf - Attending Attestation Dr. Boyd <Le Lin - Last Filed: 10/17/18 12:49> (1) PEG (percutaneous endoscopic gastrostomy) adjustment/replacement/removal Status: Acute Code(s): Z43.1 - Encounter for attention to gastrostomy - Attending Attestation Agree with above assessment and plan. Thank you for the consult. <Delfin Boyd - Last Filed: 10/17/18 16:57>
[2018-10-17] MEDS: fentaNYL 10 mcg/mL Premix Drip 2,500 MCG/250 ML BAG IV.SIG PRN (14:29)
[2018-10-17] MEDS: Dexmedetomidine Inj 1,000 MCG in Sodium Chlor 0.9% Inj 240 ML IV.CONT PRN (14:30)
--- NOTE | 2018-10-17 14:32 | P.PNID ---
Subjective Remarks: Patient is unresponsive on the ventilator. difficulty weaning. Blood pressure decreased and had to be started on phenylephrine. Discussed with RN. Heart rate increased today. Temperature is down. Copious oral secretions noted. PCP stain is negative. CSF culture has no growth. CSF toxo, HSV, cryptococcal antigen is negative. This is a 48-year-old white male who has AIDS. The patient was recently admitted to the hospital and treated for headaches. He received empiric antibiotic treatment. He refused a lumbar puncture and therefore, it was difficult to determine the cause of his headaches. MRI did not show any significant lesions. The patient presented to the emergency department with seizure. The patient's toxicology screen is positive for cocaine and cannabinoids. Past Medical History: PAST MEDICAL HISTORY: Depression, COPD, bipolar disorder, anxiety disorder, hepatitis C, neuropathy, HIV, posttraumatic stress disorder, history of MRSA. Allergies/Adverse Reactions: Allergies haloperidol Allergy (Severe, Verified 09/25/18 17:57) Swelling TONGUE SWELLING - Per pt. Objective Vital Signs 10/16/18 14:25 10/16/18 14:30 10/16/18 15:00 Temperature Pulse Rate 82 82 84 Respiratory Rate 29 H 29 H 29 H Blood Pressure 88/52 L 93/53 L 99/57 L Pulse Oximetry 94 L 91 L 94 L 10/16/18 15:30 10/16/18 15:38 10/16/18 16:00 Temperature 98.8 F Pulse Rate 82 83 79 Respiratory Rate 27 H 26 H 20 Blood Pressure 94/50 L 91/55 L Pulse Oximetry 97 100 98 10/16/18 16:30 10/16/18 18:40 10/16/18 19:38 Temperature Pulse Rate 78 85 Respiratory Rate 20 21 24 Blood Pressure 93/53 L Pulse Oximetry 94 L 98 10/16/18 20:00 10/17/18 01:06 10/17/18 01:30 Temperature Pulse Rate 85 152 H Respiratory Rate 27 H 28 H Blood Pressure Pulse Oximetry 97 95 10/17/18 01:45 10/17/18 02:00 10/17/18 02:15 Temperature Pulse Rate 152 H 150 H 153 H Respiratory Rate 27 H 27 H 26 H Blood Pressure 75/51 L 78/45 L 75/44 L Pulse Oximetry 97 96 95 10/17/18 02:39 10/17/18 02:45 10/17/18 03:00 Temperature Pulse Rate 153 H 153 H 153 H Respiratory Rate 25 H 25 H 25 H Blood Pressure 74/47 L 70/47 L 68/45 L Pulse Oximetry 93 L 93 L 95 10/17/18 03:15 10/17/18 03:29 10/17/18 03:30 Temperature Pulse Rate 153 H 153 H Respiratory Rate 25 H 24 23 Blood Pressure 67/46 L 72/52 L Pulse Oximetry 95 97 97 10/17/18 03:45 10/17/18 04:00 10/17/18 04:15 Temperature 99.1 F Pulse Rate 152 H 149 H 145 H Respiratory Rate 24 23 34 H Blood Pressure 70/49 L 73/50 L 80/52 L Pulse Oximetry 97 98 99 10/17/18 04:30 10/17/18 04:45 10/17/18 05:00 Temperature Pulse Rate 146 H 145 H 146 H Respiratory Rate 23 11 L 22 Blood Pressure 78/57 L 77/60 L 80/58 L Pulse Oximetry 93 L 95 91 L 10/17/18 05:15 10/17/18 05:30 10/17/18 05:45 Temperature Pulse Rate 148 H 149 H 149 H Respiratory Rate 21 22 22 Blood Pressure 78/57 L 79/60 L 85/60 L Pulse Oximetry 91 L 92 L 92 L 10/17/18 06:00 10/17/18 06:15 10/17/18 06:35 Temperature Pulse Rate 149 H 148 H 96 H Respiratory Rate 24 21 21 Blood Pressure 84/58 L 85/59 L 88/52 L Pulse Oximetry 91 L 92 L 92 L 10/17/18 06:45 10/17/18 07:00 10/17/18 07:01 Temperature Pulse Rate 95 H 96 H 95 H Respiratory Rate 21 21 23 Blood Pressure 85/55 L 90/54 L Pulse Oximetry 91 L 93 L 92 L 10/17/18 07:15 10/17/18 07:30 10/17/18 07:45 Temperature Pulse Rate 96 H 96 H 96 H Respiratory Rate 23 23 24 Blood Pressure 92/56 L 95/58 L 94/56 L Pulse Oximetry 92 L 92 L 93 L 10/17/18 08:00 10/17/18 08:03 10/17/18 08:04 Temperature 98.3 F Pulse Rate 85 94 H Respiratory Rate 23 24 24 Blood Pressure 172/104 H Pulse Oximetry 94 L 94 L 95 10/17/18 08:07 10/17/18 08:08 10/17/18 08:15 Temperature Pulse Rate 95 H 95 H 95 H Respiratory Rate 22 21 21 Blood Pressure 89/56 L 95/61 L Pulse Oximetry 92 L 91 L 10/17/18 08:35 10/17/18 08:45 10/17/18 09:00 Temperature Pulse Rate 96 H 97 H 99 H Respiratory Rate 21 21 19 Blood Pressure 108/56 L 98/56 L Pulse Oximetry 91 L 91 L 91 L 10/17/18 09:01 10/17/18 09:15 10/17/18 09:30 Temperature Pulse Rate 99 H 100 H 102 H Respiratory Rate 22 20 21 Blood Pressure 103/59 L 104/63 105/60 Pulse Oximetry 91 L 91 L 92 L 10/17/18 09:45 10/17/18 10:00 10/17/18 10:15 Temperature Pulse Rate 104 H 104 H 104 H Respiratory Rate 25 H 28 H 37 H Blood Pressure 105/59 L 104/59 L 102/54 L Pulse Oximetry 91 L 92 L 92 L 10/17/18 10:30 10/17/18 10:45 10/17/18 11:00 Temperature Pulse Rate 103 H 102 H 101 H Respiratory Rate 36 H 35 H 36 H Blood Pressure 100/58 L 99/59 L 99/58 L Pulse Oximetry 92 L 93 L 92 L 10/17/18 11:15 10/17/18 11:30 10/17/18 11:45 Temperature Pulse Rate 101 H 101 H 100 H Respiratory Rate 35 H 36 H 36 H Blood Pressure 100/59 L 100/62 97/61 L Pulse Oximetry 90 L 90 L 93 L 10/17/18 12:00 10/17/18 12:15 10/17/18 12:30 Temperature 98.4 F Pulse Rate 100 H 100 H 100 H Respiratory Rate 36 H 33 H 33 H Blood Pressure 97/60 L 98/64 L 100/63 Pulse Oximetry 93 L 93 L 94 L 10/17/18 12:45 10/17/18 12:59 Temperature Pulse Rate 98 H Respiratory Rate 20 Blood Pressure 94/60 L Pulse Oximetry 93 L 93 L Intake & Output 11/28/18 11/29/18 11/29/18 18:59 06:59 18:59 Intake Total 3133.5 / 3133.5 4316 / 4316 2879.5 / 2879.5 Output Total 1325 / 1325 0 / 0 Balance 1808.5 / 1808.5 4316 / 4316 2879.5 / 2879.5 Weight 123.3 kg Intake: IV 2829.5 / 2829.5 4116 / 4116 2879.5 / 2879.5 Precedex Inj 1,000 MCG In NS 250 / 250 250 / 250 Inj 240 ML @ 0.2 MCG/KG/HR 4.92 mls/hr IV.CONT TITRATE PRN Rx# :[id number] Neosynephrine Inj 40 MG In D5W 500 / 500 1000 / 1000 Inj 496 ML @ 40 MCG/MIN 30 mls/ hr IV.CONT TITRATE PRN Rx#: [id number] NS Inj 500 ML @ 500 mls/hr IV. 500 / 500 CONT .Q1H ONE Rx#:[id number] Ofirmev Inj 1,000 mg In 100 ml 100 / 100 @ 400 mls/hr IV.SIG ONCE ONE Rx #:[id number] Flexbumin 25% Inj 100 ML @ 12.5 100 / 100 100 / 100 mls/hr IV.SIG Q8H [facility] Rx#: [id number] Alburx 5% Inj 500 ML @ 250 mls/ 500 / 500 hr IV.SIG ONCE ONE Rx#:[id number] Maxipime Inj 2,000 MG In NS Inj 100 / 100 100 / 100 200 / 200 100 ML @ 200 mls/hr IV.SIG Q8H [facility] Rx#:[id number] Diflucan 200 mg Premix Bag 200 400 / 400 ML @ 100 mls/hr IV.SIG Q24H [facility] Rx#:[id number] NS Inj 1,000 ML @ 999 mls/hr IV 1000 / 1000 .SIG .Q1H1M ONE Rx#:[id number] Bactrim Inj 528 MG In D5W Inj 1066 / 1066 1066 / 1066 1066 / 1066 500 ML @ 355.333 mls/hr IV.SIG Q6H [facility] Rx#:[id number] Vancomycin Inj 1,350 MG In NS 513.5 / 513.5 513.5 / 513.5 Inj 500 ML @ 250 mls/hr IV.SIG Q18H [facility] Rx#:[id number] fentaNYL 10 mcg/mL Premix Drip 500 / 500 2,500 mcg In 250 ml @ 50 MCG/HR 5 mls/hr IV.SIG TITRATE PRN Rx #:[id number] Tube Feeding 104 / 104 100 / 100 Tube Irrigant 100 / 100 Water Bolus Amount 200 / 200 0 / 0 Output: Urine 0 / 0 Urine Amount (Catheter) 1325 / 1325 0 / 0 Condom 1325 / 1325 Straight 0 / 0 Other: # Incontinent Voids 3 4 Date of Last Bowel Movement 10/14/18 10/14/18 10/14/18 # Bowel Movements 0 # Incontinent Bowel Movements 1 10/12/18 22:55 Blood - Peripheral Aerobic Blood Culture - Final No growth in 5 days 10/12/18 22:55 Blood - Peripheral Anaerobic Blood Culture - Final No growth in 5 days 10/12/18 22:50 Blood - Peripheral Aerobic Blood Culture - Final No growth in 5 days 10/12/18 22:50 Blood - Peripheral Anaerobic Blood Culture - Final No growth in 5 days 10/13/18 16:00 Sputum - Endotracheal Gram Stain - Final 10/13/18 16:00 Sputum - Endotracheal Sputum Culture - Final S. aureus MRSA Escherichia coli 10/13/18 04:28 Sputum - Endotracheal Gram Stain - Final 10/13/18 04:28 Sputum - Endotracheal Sputum Culture - Final S. aureus MRSA Escherichia coli 10/12/18 21:50 Catheterized Urine Urine Culture - Final No growth in 48 hours 10/09/18 12:25 Blood - Peripheral Aerobic Blood Culture - Final No growth in 5 days 10/09/18 12:25 Blood - Peripheral Anaerobic Blood Culture - Final No growth in 5 days 10/09/18 12:20 Blood - Peripheral Aerobic Blood Culture - Final No growth in 5 days 10/09/18 12:20 Blood - Peripheral Anaerobic Blood Culture - Final No growth in 5 days Lab - Hematology Results 10/16/18 10/17/18 04:15 06:17 WBC 7.1 D 9.7 RBC 2.94 L 2.21 L Hgb 9.6 L 7.1 L D Hct 29.2 L 22.3 L MCV 99.3 101.1 H MCH 32.8 32.3 MCHC 33.0 31.9 L RDW 16.1 17.0 Plt Count 69 L 52 L MPV 10.7 12.4 H Lab - Chemistry Results 10/16/18 10/17/18 04:15 06:17 Sodium 139 136 Potassium 4.0 4.9 D Chloride 110 H 108 H Carbon Dioxide 19.7 L 15.0 L Anion Gap 9 13 BUN 21 H 28 H Creatinine 1.05 1.76 H Estimated GFR 75 L 41 L Random Glucose 100 115 H Calcium 8.1 L 7.6 L Phosphorus 5.0 H D 7.2 H D Magnesium 1.8 2.2 Imaging: ITS Impressions Head MRI 10/08/18 00:00 CONCLUSION: 1. Subcortical T2 hyperintensity in the left frontoparietal region has markedly decreased in size. Rapid resolution would be more indicative of an inflammatory or ischemic process. 2. No characteristic findings of acute infarct, hemorrhage or mass. Lumbar Puncture Fluoroscopy 10/08/18 00:00 CONCLUSION: 1. Uncomplicated fluoroscopically guided lumbar puncture. Abdomen/Pelvis CT 10/13/18 00:00 CONCLUSION: 1. Bilateral renal cysts. A new, broad area of apparent induration laterally of the mid zone to lower pole of the right kidney. This is nonspecific. Differential would include an infected and/or ruptured cyst. Otherwise, I don't see a significant change or any evidence of infection within the abdomen or pelvis. 2. Splenomegaly again noted. 3. Small nonobstructing stones of the left kidney are unchanged. 4. Umbilical hernia containing fat only and. Chest CT 10/13/18 00:00 CONCLUSION: Bilateral patchy dense airspace consolidation, mid and lower lung predominant on the right, mid and upper lung predominant on the left. These are nonspecific but new and presumably infectious or inflammatory. Head CT 10/13/18 00:00 CONCLUSION: No acute intracranial abnormality is demonstrated. . Abdomen/Bladder Ultrasound 10/14/18 00:00 CONCLUSION: 1. Small cyst within the kidneys bilaterally. There is a septation within the inferior renal cyst on the right. 2. No findings to indicate renal obstruction identified. Chest X-Ray 10/17/18 04:31 CONCLUSION: Persistent diffuse bilateral airspace disease. Right central line has been placed in superior vena cava without pneumothorax. Physical Exam: PHYSICAL EXAMINATION: GENERAL: Patient intubated. Nonresponsive. HEENT: Head is atraumatic. No icterus. NECK: Supple. No swelling or adenopathy. LUNGS: Bilateral rhonchi. HEART: Regular S1 and S2 without murmurs. ABDOMEN: Decreased bowel sounds. Soft. No mass palpable. EXTREMITIES: No clubbing, cyanosis or edema. SKIN: No rash.Skin has mottled appearance. NEUROLOGIC: Unable to assess. PSYCHIATRIC: Unable to assess. Assessment and Plan - Plan IMPRESSION: 1. Seizure in patient with acquired immunodeficiency syndrome. 2. Altered mental status. ? etiology. 3. Acute encephalopathy. 4. Fever. ? drug fever vs infection. 5. Possible sepsis. 6. MRSA pneumonia. E. coli Pneumonia. 7. Acute respiratory failure. 8. Worsening renal function. Possibly from Bactrim. [place] poor. deteriorating status. RECOMMENDATIONS: 1. Continue Diflucan. 2. Continue the prophylactic azithromycin for MAC. 3. Continue vancomycin. Pharmacy to monitor. 4. Stop Bactrim. PCP smear is negative. 5. Continue Cefepime. 6. Monitor the temperature. 7. Monitor clinical status.
--- NOTE | 2018-10-17 17:36 | P.PNCC ---
Subjective Subjective Remarks/Hospital Course: 48yM with history of HIV and CD4+ count <20 presenting with seizure and fever. The patient was admitted from 09/26-10/05/18 for fever and headache, had an initial attempt at LP performed in the ED but was unsuccessful and subsequently declined any further attempts. He had blood cultures which were negative at 5 days and positive toxoplasma IgG, treated empirically with IV fluconazole and discharged home with PO fluconazole and prophylactic azithromycin and bactrim. The patient is chronic non-compliant with his HIV medications and was reportedly not taking his discharge meds. Today, he was at home and had a 2 minute seizure witnessed by his sister Beata. He was brought to the ED via EMS and had a temp of 101F and heart rate of 150. He was given a dose of vanco, ceftazidime, and acyclovir along with 3L NS bolus. He had a head CT which was unchanged from his previous visit. On my evaluation, the patient is encephalopathic and oriented to name only. He is unable to provide any further meaningful details to HPI. I spoke with the patient's sister Beata, who says that the patient is frequent non-compliant with his medications, reportedly took "a whole bottle of percocet" two days ago (just after discharge), and "hasn't been in his right mind since then. He can't finish a sentence and has been urinating himself". 10/08: Patient intubated overnight for continued respiratory distress/ hypoxia. Currently sedated and intubated. 10/09: Patient growing MRSA in sputum culture, febrile to 103F, CSF shows no organisms on gram stain and cultures pending. 10/10: Remains intubated heavily sedated. Remains on suspected toxoplasmosis treatment with vitamin Timentin sulfadiazine and leucovorin. CSF cultures remains negative. 10/11: Remains intubated and sedated. Failed CPAP trial yesterday due to severe tachypnea. Treatment for toxoplasmosis currently held by ID as it is known least high. CSF cultures remains negative. Start diuresis with IV Lasix , start Precedex to facilitate weaning 10/12: Attempt is being made to transition from propofol to Precedex to facilitate vent weaning but patient not tolerating becomes very tachypneic and anxious. Restarted back on propofol. We will start scheduled Ativan to facilitate weaning propofol. 10/13: Remains very critical spiking high fevers at 102. Significant difficulties and ventilator and sedation weaning due to severe agitation and severe ventilator asynchrony once sedation is lowered. Family wants continued aggressive care. Early tracheostomy may help reduce sedation and ventilator wean. Will discuss with sister who is the POA. Due to continued fever I will check CT chest abdomen and pelvis to rule out abscess loculated effusions etc. pancultured yesterday pending 10/14: Remains critically ill and septic T-max again more than 102. CT of the chest shows increasing bilateral consolidation. PJP sent pending at this time. Will discuss with ID about empiric treatment until the cultures are back. CT abdomen also shows questionable infected cyst on the right kidney. Will check renal ultrasound. Plan for tracheostomy and bronchoscopy today will collect additional specimen for PJP and other opportunistic infection 10/15: continues to be septic and spiking fevers. trached yesterday. agitation persists. minimal improvements overall. starting to get volume overloaded as well. 10/16: severe agitation persists. no improvements. also high fio2 requirements. very volume overloaded, but not diuresing appropriately: will add concentrated albumin and increase lasix again. no improvements between yesterday and today. 10/17: clinically decompensated overnight. now appears quite septic in refractory shock. discussions overnight with family/HCS and now "no escalation of care/DNR". unstable today with hypotension, hypoxia. poor prognosis. Objective Vital Signs / I&O: Vital Signs 10/16/18 18:40 10/16/18 19:38 10/16/18 20:00 Temperature Pulse Rate 85 85 Respiratory Rate 21 24 Blood Pressure Pulse Oximetry 98 10/17/18 01:06 10/17/18 01:30 10/17/18 01:45 Temperature Pulse Rate 152 H 152 H Respiratory Rate 27 H 28 H 27 H Blood Pressure 75/51 L Pulse Oximetry 97 95 97 10/17/18 02:00 10/17/18 02:15 10/17/18 02:39 Temperature Pulse Rate 150 H 153 H 153 H Respiratory Rate 27 H 26 H 25 H Blood Pressure 78/45 L 75/44 L 74/47 L Pulse Oximetry 96 95 93 L 10/17/18 02:45 10/17/18 03:00 10/17/18 03:15 Temperature Pulse Rate 153 H 153 H 153 H Respiratory Rate 25 H 25 H 25 H Blood Pressure 70/47 L 68/45 L 67/46 L Pulse Oximetry 93 L 95 95 10/17/18 03:29 10/17/18 03:30 10/17/18 03:45 Temperature Pulse Rate 153 H 152 H Respiratory Rate 24 23 24 Blood Pressure 72/52 L 70/49 L Pulse Oximetry 97 97 97 10/17/18 04:00 10/17/18 04:15 10/17/18 04:30 Temperature 37.3 C Pulse Rate 149 H 145 H 146 H Respiratory Rate 23 34 H 23 Blood Pressure 73/50 L 80/52 L 78/57 L Pulse Oximetry 98 99 93 L 10/17/18 04:45 10/17/18 05:00 10/17/18 05:15 Temperature Pulse Rate 145 H 146 H 148 H Respiratory Rate 11 L 22 21 Blood Pressure 77/60 L 80/58 L 78/57 L Pulse Oximetry 95 91 L 91 L 10/17/18 05:30 10/17/18 05:45 10/17/18 06:00 Temperature Pulse Rate 149 H 149 H 149 H Respiratory Rate 22 22 24 Blood Pressure 79/60 L 85/60 L 84/58 L Pulse Oximetry 92 L 92 L 91 L 10/17/18 06:15 10/17/18 06:35 10/17/18 06:45 Temperature Pulse Rate 148 H 96 H 95 H Respiratory Rate 21 21 21 Blood Pressure 85/59 L 88/52 L 85/55 L Pulse Oximetry 92 L 92 L 91 L 10/17/18 07:00 10/17/18 07:01 10/17/18 07:15 Temperature Pulse Rate 96 H 95 H 96 H Respiratory Rate 21 23 23 Blood Pressure 90/54 L 92/56 L Pulse Oximetry 93 L 92 L 92 L 10/17/18 07:30 10/17/18 07:45 10/17/18 08:00 Temperature 36.8 C Pulse Rate 96 H 96 H 85 Respiratory Rate 23 24 23 Blood Pressure 95/58 L 94/56 L Pulse Oximetry 92 L 93 L 94 L 10/17/18 08:03 10/17/18 08:04 10/17/18 08:07 Temperature Pulse Rate 94 H 95 H Respiratory Rate 24 24 22 Blood Pressure 172/104 H 89/56 L Pulse Oximetry 94 L 95 92 L 10/17/18 08:08 10/17/18 08:15 10/17/18 08:35 Temperature Pulse Rate 95 H 95 H 96 H Respiratory Rate 21 21 21 Blood Pressure 95/61 L 108/56 L Pulse Oximetry 91 L 91 L 10/17/18 08:45 10/17/18 09:00 10/17/18 09:01 Temperature Pulse Rate 97 H 99 H 99 H Respiratory Rate 21 19 22 Blood Pressure 98/56 L 103/59 L Pulse Oximetry 91 L 91 L 91 L 10/17/18 09:15 10/17/18 09:30 10/17/18 09:45 Temperature Pulse Rate 100 H 102 H 104 H Respiratory Rate 20 21 25 H Blood Pressure 104/63 105/60 105/59 L Pulse Oximetry 91 L 92 L 91 L 10/17/18 10:00 10/17/18 10:15 10/17/18 10:30 Temperature Pulse Rate 104 H 104 H 103 H Respiratory Rate 28 H 37 H 36 H Blood Pressure 104/59 L 102/54 L 100/58 L Pulse Oximetry 92 L 92 L 92 L 10/17/18 10:45 10/17/18 11:00 10/17/18 11:15 Temperature Pulse Rate 102 H 101 H 101 H Respiratory Rate 35 H 36 H 35 H Blood Pressure 99/59 L 99/58 L 100/59 L Pulse Oximetry 93 L 92 L 90 L 10/17/18 11:30 10/17/18 11:45 10/17/18 12:00 Temperature 36.9 C Pulse Rate 101 H 100 H 100 H Respiratory Rate 36 H 36 H 36 H Blood Pressure 100/62 97/61 L 97/60 L Pulse Oximetry 90 L 93 L 93 L 10/17/18 12:15 10/17/18 12:30 10/17/18 12:45 Temperature Pulse Rate 100 H 100 H 98 H Respiratory Rate 33 H 33 H Blood Pressure 98/64 L 100/63 94/60 L Pulse Oximetry 93 L 94 L 93 L 10/17/18 12:59 10/17/18 13:00 10/17/18 13:15 Temperature Pulse Rate 97 H 96 H Respiratory Rate 20 Blood Pressure 95/58 L 94/60 L Pulse Oximetry 93 L 93 L 94 L 10/17/18 13:30 10/17/18 13:45 10/17/18 14:00 Temperature Pulse Rate 96 H 96 H 96 H Respiratory Rate Blood Pressure 93/64 L 94/62 L 94/61 L Pulse Oximetry 94 L 94 L 94 L 10/17/18 14:15 10/17/18 14:30 10/17/18 14:46 Temperature Pulse Rate 96 H 97 H 97 H Respiratory Rate Blood Pressure 94/58 L 97/61 L 97/57 L Pulse Oximetry 94 L 93 L 94 L 10/17/18 15:00 10/17/18 15:15 10/17/18 15:18 Temperature Pulse Rate 97 H 96 H Respiratory Rate 19 Blood Pressure 96/56 L 94/57 L Pulse Oximetry 93 L 94 L 96 10/17/18 15:19 10/17/18 15:30 10/17/18 15:35 Temperature Pulse Rate 96 H 96 H Respiratory Rate 19 19 Blood Pressure 93/57 L Pulse Oximetry 94 L 10/17/18 15:45 10/17/18 16:00 10/17/18 16:15 Temperature 36.4 C Pulse Rate 95 H 94 H 93 H Respiratory Rate Blood Pressure 94/57 L 96/54 L 92/56 L Pulse Oximetry 94 L 96 97 Intake & Output 10/16/18 10/17/18 10/17/18 18:59 06:59 18:59 Intake Total 3133.5 / 3133.5 4316 / 4316 3679.5 / 3679.5 Output Total 1325 / 1325 0 / 0 Balance 1808.5 / 1808.5 4316 / 4316 3679.5 / 3679.5 Weight 123.3 kg Intake: IV 2829.5 / 2829.5 4116 / 4116 3679.5 / 3679.5 Precedex Inj 1,000 MCG In NS 250 / 250 250 / 250 250 / 250 Inj 240 ML @ 0.2 MCG/KG/HR 4.92 mls/hr IV.CONT TITRATE PRN Rx# :[id number] Neosynephrine Inj 40 MG In D5W 500 / 500 1000 / 1000 Inj 496 ML @ 40 MCG/MIN 30 mls/ hr IV.CONT TITRATE PRN Rx#: [id number] NS Inj 500 ML @ 500 mls/hr IV. 500 / 500 CONT .Q1H ONE Rx#:[id number] Ofirmev Inj 1,000 mg In 100 ml 100 / 100 @ 400 mls/hr IV.SIG ONCE ONE Rx #:[id number] Flexbumin 25% Inj 100 ML @ 12.5 100 / 100 200 / 200 mls/hr IV.SIG Q8H [facility] Rx#: [id number] Alburx 5% Inj 500 ML @ 250 mls/ 500 / 500 hr IV.SIG ONCE ONE Rx#:[id number] Maxipime Inj 2,000 MG In NS Inj 100 / 100 100 / 100 200 / 200 100 ML @ 200 mls/hr IV.SIG Q8H [facility] Rx#:[id number] Diflucan 200 mg Premix Bag 200 400 / 400 200 / 200 ML @ 100 mls/hr IV.SIG Q24H [facility] Rx#:[id number] NS Inj 1,000 ML @ 999 mls/hr IV 1000 / 1000 .SIG .Q1H1M ONE Rx#:[id number] Bactrim Inj 528 MG In D5W Inj 1066 / 1066 1066 / 1066 1066 / 1066 500 ML @ 355.333 mls/hr IV.SIG Q6H [facility] Rx#:[id number] Vancomycin Inj 1,350 MG In NS 513.5 / 513.5 513.5 / 513.5 Inj 500 ML @ 250 mls/hr IV.SIG Q18H [facility] Rx#:[id number] fentaNYL 10 mcg/mL Premix Drip 500 / 500 250 / 250 2,500 mcg In 250 ml @ 50 MCG/HR 5 mls/hr IV.SIG TITRATE PRN Rx #:[id number] Tube Feeding 104 / 104 100 / 100 Tube Irrigant 100 / 100 Water Bolus Amount 200 / 200 0 / 0 Output: Urine 0 / 0 Urine Amount (Catheter) 1325 / 1325 0 / 0 Condom 1325 / 1325 Straight 0 / 0 Other: # Incontinent Voids 3 4 Date of Last Bowel Movement 10/14/18 10/14/18 10/14/18 # Bowel Movements 0 # Incontinent Bowel Movements 1 Result Diagrams: 10/17/18 06:17 10/17/18 06:17 Objective Remarks: GEN: Ill-appearing, intubated and sedated HEENT: NCAT, trach and OGT present NECK: No JVD, trachea midline CARDIO: tachycardic rate, regular rhythm. sinus. PULM: Breath sounds equal bilaterally. Few coarse rhonchi bilaterally. cyanotic. ABD/GI: Soft, non-tender, mildly distended, easily reducible umbilical hernia EXT/MSK: No peripheral edema. SKIN: Flushed, mildly diaphoretic. NEURO: RASS -4. Heavily sedated for vent synchrony. Slightly moves extremities to pain. 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 remains critically ill. now in refractory septic shock. unlikely to survive. 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 Neurology following, no seizure activity seen on EEG -Continue home dose of Topamax -CSF analysis- no organisms seen, 6 WBCs/ 4 RBCs/ clear, opening pressure 23, no growth -MRI brain with contrast 10/08 Subcortical T2 hyperintensity in the left frontoparietal region has markedly decreased in size. Rapid resolution more indicative of an inflammatory or ischemic process. Currently no lesion suggestive of toxoplasmosis. Treatment for toxo held for now -Antifungals as below - seroquel 100mg po q8h - d/c propranolol given shock. - prn geodon 10mg IM q12h - (reported allergy to haldol causing swelling so will avoid for now). - morphine 10mg po PRN pain or discomfort. -wean fentanyl, precedex as tolerated. - goal RASS -2. CARDIO: Refractory septic shock -back on levophed, neosynephrine, vasopressin. - no escalation of care per family/HCS. -Echo performed on 05/02/18, showed EF 55-60%, mild TR, no vegetations -d/c lasix. PULM: Acute hypoxic respiratory failure- worsening -Continues to fail SBT due to severe agitation on sedation lowering, becomes asynchronous and hypoxic. Mental status will not permit extubation - now quite hypoxic - too unstable for SBT. -s/p trach 10/14 -Vent bundle, Nebs, Vent day 8 -CT chest showing worsening multilobar bilateral infiltrates despite MRSA treatment F/E/N/GI: Acute severe intravascular volume overload -Continue free water flushes -Monitor Is and Os -Electrolyte replacement protocol. - consulted GI for PEG placement, but too unstable today. RENAL: Acute kidney injury- worsening -MIGUEL ANGEL, creat worsening -Straight cath PRN ID: septic shock -ID following (Dr. Toribio) * CSF negative thus far * MRSA pneumonia -Continue Diflucan, vancomycin, prophylactic azithromycin, add P ROSSY prophylaxis , now on cefepime. -BAL today and sent for opportunistic infections -Off pyrimethamine, sulfadiazine, leucovorin, per ID as MRI brain did not show any lesions suggestive of toxoplasmosis -CT chest abdomen and pelvis due to persistent fever rule out abscess- increasing bilateral pulmonary infiltrates, questionable infected cyst right kidney. PROPHY: -SCDs, SQH. -PPI Overall: This patient is critically ill and decompensating. terminal and dying. critically ill. Critical care time: 31 minutes, exclusive of separately billable procedures.
[2018-10-17] MEDS ORDERED: Pharmacy Ordered Lab Info OTHER ONE (21:45)
[2018-10-18] MEDS: fentaNYL 10 mcg/mL Premix Drip 2,500 MCG/250 ML BAG IV.SIG PRN ×2 (00:24→10:33)
[2018-10-18] MEDS: Dexmedetomidine Inj 1,000 MCG in Sodium Chlor 0.9% Inj 240 ML IV.CONT PRN (01:00)
[2018-10-18] MEDS: Phenylephrine Inj 40 MG in Dextrose 5% in Water Inj 496 ML IV.CONT PRN ×2 (01:45)
[2018-10-18] MEDS: Morphine Sulfate Oral Liq 10 MG/0.5 ML Syringe PO SCH ×3 (02:09→08:59)
[2018-10-18] MEDS: Oral Hygiene Kit OROPHARYNG SCH (03:58)
[2018-10-18 04:41] LABS: Hemoglobin 7.1 gm/dL (13.0-17.0); Mean Corpuscular HGB Conc 32.4 % (32.0-36.0); Mean Corpuscular Hemoglobin 32.1 pg (27.0-34.0); Mean Platelet Volume 11.9 fL (7.0-11.0); Platelet Count 70 th/mm3 (150-450); Red Blood Count 2.22 mil/mm3 (4.50-5.90); Red Cell Distribution Width 17.7 % (11.6-17.2); White Blood Count 10.1 th/mm3 (4.0-11.0)
[2018-10-18 05:03] LABS: Calcium 7.2 mg/dL (8.5-10.1); Carbon Dioxide 17.7 meq/L (21.0-32.0); Phosphorus 8.6 mg/dL (2.5-4.9); Potassium 5.8 meq/L (3.5-5.1)
[2018-10-18 05:10] LABS: Albumin 2.2 g/dL (3.4-5.0); Calcium-Albumin Corrected 8.6 mg/dL (8.5-10.1)
[2018-10-18] MEDS: QUEtiapine 100 MG Tablet PO SCH (06:15)
[2018-10-18] MEDS ORDERED: Dextrose 50% in Water Syringe 50 ML ONE (08:19)
[2018-10-18] MEDS: Famotidine 20 MG Tablet PO SCH (08:58)
[2018-10-18] MEDS: Senna/Docusate Sodium 8.6/50 MG Tablet PO SCH (08:59)
[2018-10-18] MEDS: Chlorhexidine 0.12% Oral Kit 15 ML UDC OROPHARYNG SCH (09:40)
[2018-10-18] MEDS: Beneprotein Powder Packet G-TUBE SCH (09:40)
[2018-10-18] MEDS: Topiramate 25 MG Tablet PO SCH (09:41)
[2018-10-18] MEDS ORDERED: Sod Chloride 0.9% Inj 1,000 ML IV.CONT SCH (11:15)
[2018-10-18] MEDS ORDERED: Morphine Inj 4 MG/ML Vial IV.PUSH ONE ×2 (11:26)
[2018-10-18] MEDS ORDERED: Morphine Inj 4 MG/ML Vial IV.PUSH PRN (11:26)
--- NOTE | 2018-10-18 11:33 | P.PNCC ---
Subjective Subjective Remarks/Hospital Course: 48yM with history of HIV and CD4+ count <20 presenting with seizure and fever. The patient was admitted from 09/26-10/05/18 for fever and headache, had an initial attempt at LP performed in the ED but was unsuccessful and subsequently declined any further attempts. He had blood cultures which were negative at 5 days and positive toxoplasma IgG, treated empirically with IV fluconazole and discharged home with PO fluconazole and prophylactic azithromycin and bactrim. The patient is chronic non-compliant with his HIV medications and was reportedly not taking his discharge meds. Today, he was at home and had a 2 minute seizure witnessed by his sister Beata. He was brought to the ED via EMS and had a temp of 101F and heart rate of 150. He was given a dose of vanco, ceftazidime, and acyclovir along with 3L NS bolus. He had a head CT which was unchanged from his previous visit. On my evaluation, the patient is encephalopathic and oriented to name only. He is unable to provide any further meaningful details to HPI. I spoke with the patient's sister Beata, who says that the patient is frequent non-compliant with his medications, reportedly took "a whole bottle of percocet" two days ago (just after discharge), and "hasn't been in his right mind since then. He can't finish a sentence and has been urinating himself". 10/08: Patient intubated overnight for continued respiratory distress/ hypoxia. Currently sedated and intubated. 10/09: Patient growing MRSA in sputum culture, febrile to 103F, CSF shows no organisms on gram stain and cultures pending. 10/10: Remains intubated heavily sedated. Remains on suspected toxoplasmosis treatment with vitamin Timentin sulfadiazine and leucovorin. CSF cultures remains negative. 10/11: Remains intubated and sedated. Failed CPAP trial yesterday due to severe tachypnea. Treatment for toxoplasmosis currently held by ID as it is known least high. CSF cultures remains negative. Start diuresis with IV Lasix , start Precedex to facilitate weaning 10/12: Attempt is being made to transition from propofol to Precedex to facilitate vent weaning but patient not tolerating becomes very tachypneic and anxious. Restarted back on propofol. We will start scheduled Ativan to facilitate weaning propofol. 10/13: Remains very critical spiking high fevers at 102. Significant difficulties and ventilator and sedation weaning due to severe agitation and severe ventilator asynchrony once sedation is lowered. Family wants continued aggressive care. Early tracheostomy may help reduce sedation and ventilator wean. Will discuss with sister who is the POA. Due to continued fever I will check CT chest abdomen and pelvis to rule out abscess loculated effusions etc. pancultured yesterday pending 10/14: Remains critically ill and septic T-max again more than 102. CT of the chest shows increasing bilateral consolidation. PJP sent pending at this time. Will discuss with ID about empiric treatment until the cultures are back. CT abdomen also shows questionable infected cyst on the right kidney. Will check renal ultrasound. Plan for tracheostomy and bronchoscopy today will collect additional specimen for PJP and other opportunistic infection 10/15: continues to be septic and spiking fevers. trached yesterday. agitation persists. minimal improvements overall. starting to get volume overloaded as well. 10/16: severe agitation persists. no improvements. also high fio2 requirements. very volume overloaded, but not diuresing appropriately: will add concentrated albumin and increase lasix again. no improvements between yesterday and today. 10/17: clinically decompensated overnight. now appears quite septic in refractory shock. discussions overnight with family/HCS and now "no escalation of care/DNR". unstable today with hypotension, hypoxia. poor prognosis. 10/18: no changes or improvements. long discussion with family at bedside today , and they wish to pursue palliative withdraw of care, which is appropriate. Objective Vital Signs / I&O: Vital Signs 10/17/18 11:45 10/17/18 12:00 10/17/18 12:15 Temperature 36.9 C Pulse Rate 100 H 100 H 100 H Respiratory Rate 36 H 36 H 33 H Blood Pressure 97/61 L 97/60 L 98/64 L Pulse Oximetry 93 L 93 L 93 L 10/17/18 12:30 10/17/18 12:45 10/17/18 12:59 Temperature Pulse Rate 100 H 98 H Respiratory Rate 33 H 20 Blood Pressure 100/63 94/60 L Pulse Oximetry 94 L 93 L 93 L 10/17/18 13:00 10/17/18 13:15 10/17/18 13:30 Temperature Pulse Rate 97 H 96 H 96 H Respiratory Rate Blood Pressure 95/58 L 94/60 L 93/64 L Pulse Oximetry 93 L 94 L 94 L 10/17/18 13:45 10/17/18 14:00 10/17/18 14:15 Temperature Pulse Rate 96 H 96 H 96 H Respiratory Rate Blood Pressure 94/62 L 94/61 L 94/58 L Pulse Oximetry 94 L 94 L 94 L 10/17/18 14:30 10/17/18 14:46 10/17/18 15:00 Temperature Pulse Rate 97 H 97 H 97 H Respiratory Rate Blood Pressure 97/61 L 97/57 L 96/56 L Pulse Oximetry 93 L 94 L 93 L 10/17/18 15:15 10/17/18 15:18 10/17/18 15:19 Temperature Pulse Rate 96 H 96 H Respiratory Rate 19 19 Blood Pressure 94/57 L Pulse Oximetry 94 L 96 10/17/18 15:30 10/17/18 15:35 10/17/18 15:45 Temperature Pulse Rate 96 H 95 H Respiratory Rate 19 Blood Pressure 93/57 L 94/57 L Pulse Oximetry 94 L 94 L 10/17/18 16:00 10/17/18 16:15 10/17/18 20:00 Temperature 36.4 C Pulse Rate 94 H 93 H 94 H Respiratory Rate Blood Pressure 96/54 L 92/56 L Pulse Oximetry 96 97 10/17/18 20:30 10/17/18 20:36 10/17/18 20:37 Temperature Pulse Rate 94 H 94 H Respiratory Rate 21 20 Blood Pressure 91/52 L Pulse Oximetry 99 99 10/17/18 20:45 10/17/18 21:00 10/17/18 21:15 Temperature Pulse Rate 94 H 96 H 96 H Respiratory Rate 32 H 22 Blood Pressure 91/54 L 101/53 L 102/57 L Pulse Oximetry 99 96 98 10/17/18 21:30 10/17/18 21:45 10/17/18 22:00 Temperature Pulse Rate 97 H 97 H 97 H Respiratory Rate 21 29 H 18 Blood Pressure 98/56 L 106/55 L 102/50 L Pulse Oximetry 99 98 99 10/17/18 22:15 10/17/18 22:30 10/17/18 22:45 Temperature Pulse Rate 97 H 98 H 100 H Respiratory Rate 22 20 22 Blood Pressure 99/55 L 104/55 L 107/56 L Pulse Oximetry 99 100 99 10/17/18 23:00 10/17/18 23:15 10/17/18 23:30 Temperature Pulse Rate 100 H 100 H 101 H Respiratory Rate 21 23 21 Blood Pressure 107/57 L 110/56 L 110/57 L Pulse Oximetry 99 98 99 10/17/18 23:45 10/18/18 00:00 10/18/18 00:15 Temperature 37.1 C Pulse Rate 101 H 101 H 102 H Respiratory Rate 23 34 H 19 Blood Pressure 108/58 L 114/58 L 109/59 L Pulse Oximetry 100 100 99 10/18/18 00:30 10/18/18 00:45 10/18/18 01:00 Temperature Pulse Rate 103 H 104 H 104 H Respiratory Rate 35 H 38 H 35 H Blood Pressure 109/57 L 116/56 L 112/55 L Pulse Oximetry 99 100 99 10/18/18 01:15 10/18/18 01:30 10/18/18 01:45 Temperature Pulse Rate 104 H 104 H 104 H Respiratory Rate 26 H 25 H 38 H Blood Pressure 108/57 L 106/54 L 110/57 L Pulse Oximetry 100 100 100 10/18/18 02:00 10/18/18 02:15 10/18/18 02:30 Temperature Pulse Rate 105 H 105 H 104 H Respiratory Rate 26 H 18 20 Blood Pressure 107/53 L 110/51 L 107/56 L Pulse Oximetry 100 100 100 10/18/18 02:45 10/18/18 02:48 10/18/18 03:00 Temperature Pulse Rate 105 H 105 H Respiratory Rate 19 19 18 Blood Pressure 106/56 L 105/52 L Pulse Oximetry 100 100 10/18/18 03:15 10/18/18 03:30 10/18/18 03:45 Temperature Pulse Rate 106 H 106 H 106 H Respiratory Rate 18 18 18 Blood Pressure 106/57 L 107/55 L 107/55 L Pulse Oximetry 100 100 100 10/18/18 04:00 10/18/18 04:01 10/18/18 04:15 Temperature 36.9 C Pulse Rate 107 H 106 H 109 H Respiratory Rate 19 19 18 Blood Pressure 105/56 L 103/56 L Pulse Oximetry 100 99 96 10/18/18 04:30 10/18/18 04:45 10/18/18 05:00 Temperature Pulse Rate 111 H 111 H 111 H Respiratory Rate 18 18 6 L Blood Pressure 106/55 L 106/50 L 117/58 L Pulse Oximetry 95 100 100 10/18/18 05:15 10/18/18 08:07 10/18/18 08:09 Temperature Pulse Rate 113 H 110 H Respiratory Rate 0 L 19 19 Blood Pressure 113/58 L Pulse Oximetry 95 99 Intake & Output 10/17/18 10/18/18 10/18/18 18:59 06:59 18:59 Intake Total 4279.5 / 4279.5 1190 / 1190 250 / 250 Output Total 50 / 50 1275 / 1275 Balance 4229.5 / 4229.5 -85 / -85 250 / 250 Weight 128.3 kg Intake: IV 4279.5 / 4279.5 1100 / 1100 250 / 250 Precedex Inj 1,000 MCG In NS 250 / 250 250 / 250 Inj 240 ML @ 0.2 MCG/KG/HR 4.92 mls/hr IV.CONT TITRATE PRN Rx# :[id number] Neosynephrine Inj 40 MG In D5W 1500 / 1500 500 / 500 Inj 496 ML @ 40 MCG/MIN 30 mls/ hr IV.CONT TITRATE PRN Rx#: [id number] Pitressin Inj 40 UNIT In D5W 100 / 100 Inj 98 ML @ 0.01 UNITS/MIN 1.5 mls/hr IV.CONT TITRATE PRN Rx#: [id number] Flexbumin 25% Inj 100 ML @ 12.5 200 / 200 mls/hr IV.SIG Q8H MINOR Rx#: [id number] Maxipime Inj 2,000 MG In NS Inj 200 / 200 100 / 100 100 ML @ 200 mls/hr IV.SIG Q8H MINOR Rx#:[id number] Diflucan 200 mg Premix Bag 200 200 / 200 ML @ 100 mls/hr IV.SIG Q24H MINOR Rx#:[id number] Bactrim Inj 528 MG In D5W Inj 1066 / 1066 500 ML @ 355.333 mls/hr IV.SIG Q6H MINOR Rx#:[id number] Vancomycin Inj 1,350 MG In NS 513.5 / 513.5 Inj 500 ML @ 250 mls/hr IV.SIG Q18H MINOR Rx#:[id number] fentaNYL 10 mcg/mL Premix Drip 250 / 250 250 / 250 250 / 250 2,500 mcg In 250 ml @ 50 MCG/HR 5 mls/hr IV.SIG TITRATE PRN Rx #:[id number] Tube Feeding 0 / 0 Tube Irrigant 90 / 90 Output: Urine 50 / 50 Urine Amount (Catheter) 1275 / 1275 Straight 1275 / 1275 Other: # Incontinent Voids 2 Date of Last Bowel Movement 10/14/18 10/14/18 Result Diagrams: 10/18/18 04:05 10/18/18 04:05 Objective Remarks: GEN: Ill-appearing, intubated and sedated HEENT: NCAT, trach and OGT present NECK: No JVD, trachea midline CARDIO: tachycardic rate, regular rhythm. sinus. PULM: Breath sounds equal bilaterally. Few coarse rhonchi bilaterally. cyanotic. ABD/GI: Soft, non-tender, mildly distended, easily reducible umbilical hernia EXT/MSK: No peripheral edema. SKIN: Flushed, mildly diaphoretic. NEURO: RASS -4. Heavily sedated for vent synchrony. Slightly moves extremities to pain. 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 remains critically ill. now in refractory septic shock. unlikely to survive. 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 Neurology following, no seizure activity seen on EEG -Continue home dose of Topamax -CSF analysis- no organisms seen, 6 WBCs/ 4 RBCs/ clear, opening pressure 23, no growth -MRI brain with contrast 10/08 Subcortical T2 hyperintensity in the left frontoparietal region has markedly decreased in size. Rapid resolution more indicative of an inflammatory or ischemic process. Currently no lesion suggestive of toxoplasmosis. Treatment for toxo held for now -Antifungals as below - seroquel 100mg po q8h - d/c propranolol given shock. - prn geodon 10mg IM q12h - (reported allergy to haldol causing swelling so will avoid for now). - morphine 10mg po PRN pain or discomfort. -wean fentanyl, precedex as tolerated. - goal RASS -2. CARDIO: Refractory septic shock -back on levophed, neosynephrine, vasopressin. - no escalation of care per family/HCS. -Echo performed on 05/02/18, showed EF 55-60%, mild TR, no vegetations -d/c lasix. PULM: Acute hypoxic respiratory failure- worsening -Continues to fail SBT due to severe agitation on sedation lowering, becomes asynchronous and hypoxic. Mental status will not permit extubation - now quite hypoxic - too unstable for SBT. -s/p trach 10/14 -Vent bundle, Nebs, Vent day 8 -CT chest showing worsening multilobar bilateral infiltrates despite MRSA treatment F/E/N/GI: Acute severe intravascular volume overload -Continue free water flushes -Monitor Is and Os -Electrolyte replacement protocol. - consulted GI for PEG placement, but too unstable today. RENAL: Acute kidney injury- worsening -MIGUEL ANGEL, creat worsening -Straight cath PRN ID: septic shock -ID following (Dr. Toribio) * CSF negative thus far * MRSA pneumonia -Continue Diflucan, vancomycin, prophylactic azithromycin, add P ROSSY prophylaxis , now on cefepime. -BAL today and sent for opportunistic infections -Off pyrimethamine, sulfadiazine, leucovorin, per ID as MRI brain did not show any lesions suggestive of toxoplasmosis -CT chest abdomen and pelvis due to persistent fever rule out abscess- increasing bilateral pulmonary infiltrates, questionable infected cyst right kidney. PROPHY: -SCDs, SQH. -PPI Overall: This patient is critically ill and decompensating. terminal and dying. critically ill.
--- NOTE | 2018-10-18 11:58 | P.PNPAL ---
Reason for Visit Reason for visit: a. To assist with evaluation and management of symptoms including: pain, anxiety, dyspnea b. To assist medical decision maker(s) with: better understanding of current medical conditions; weighing benefits/burdens of medical treatment options; making medical treatment decisions. Subjective Subjective/Interval History: Mr. Morgan is a 48yo male who presented to [place] ER via EMS with complaints of seizures and fever. His sister, which whom he lives with reports that she was awoken by her daughter stating that the patient was seizing uncontrollably. She also states that approximately 2 days ago he took his entire bottle of Percocet though she was unable to tell how many pills were in the bottle. She states since then his mental status has been declining, he has been unable to finish sentences and has been noted to be urinating on himself. His past medical history is significant for AIDS, COPD, Hepatitis C, Bipolar disorder, PTSD with remote suicide attempts, and neuropathy. Of note the patient was just discharged from [place] on 10/05/18. The patient has a history of admission related to AIDS/HIV and related sequelae. His last CD4 count was noted to be 29 on 04/2018. The patient also has a history of non compliance with his antiretroviral therapy as well as other medications. Upon arrival to the emergency room by the patient was confused, tachycardic, and with a core temperature of 101.0. He had waxing and waning mentation and required increasing oxygen support. He was placed on BiPAP 12/5 40% FiO2. Due to his rapid decline the patient was admitted to the MICU for further evaluation and treatment. Neurology and infectious disease consults are pending. Referral was also placed to interventional radiology for LP puncture as there is concern for meningitis and the patient has previously declined further workup. 10/18/18 Palliative care continues to follow with patient for symptom management and continuing conversation for goals of medical care. Patient continues to show downward trajectory. Remains unresponsive and hemodynamically unstable. Continues with 70% FiO2, yet remains mottled. Chest x-ray from 10/17/18 showed persistant diffuse bilateral airspace disease. Minimal urine output with increasing creatinine. Family at bedside (patient's sisters and nephews) and after discussion with Dr. Summers, feel it would be in the patient's best interest if he were no longer suffering. They have elected for compassionate withdrawal. Today's clinical data revealed: * WBC 10.1, Hgb 7.1, Hct 22.0, plt 70 * Na 132, K+ 5.8, Cl 103, CO2 17.7, BUN 38, creatinine 2.67, glucose 63 * Ca 7.2, PO4 8.6, Alb 2.2 Family/Friend Interactions: Discussion was had at bedside with patient's sisters, nephews, Dr. Summers and Palliative care. It was explained that the patient was experiencing multiorgan failure and was not suspected to survive this hospitalization. Upon reviewing clinical data and seeing their brother, the family decided it was in his best interest for compassionate withdrawal of life support. Advance Directives Living Will: Never completed Health Care Surrogate: Never completed Durable Power of Sheep Herder: Never completed Health Care Surrogate Name and Number: Beata Morgan, sister/HCP [phone] Documented care wishes:: Patient does not have a documented living will or DURABLE POWER OF PRINTING SUPERVISOR. Significant change in goals:: Patient has elected compassionate withdrawal of care. Objective Vital Signs: Vital Signs 10/17/18 11:45 10/17/18 12:00 10/17/18 12:15 Temperature 98.4 F Pulse Rate 100 H 100 H 100 H Respiratory Rate 36 H 36 H 33 H Blood Pressure 97/61 L 97/60 L 98/64 L Pulse Oximetry 93 L 93 L 93 L 10/17/18 12:30 10/17/18 12:45 10/17/18 12:59 Temperature Pulse Rate 100 H 98 H Respiratory Rate 33 H 20 Blood Pressure 100/63 94/60 L Pulse Oximetry 94 L 93 L 93 L 10/17/18 13:00 10/17/18 13:15 10/17/18 13:30 Temperature Pulse Rate 97 H 96 H 96 H Respiratory Rate Blood Pressure 95/58 L 94/60 L 93/64 L Pulse Oximetry 93 L 94 L 94 L 10/17/18 13:45 10/17/18 14:00 10/17/18 14:15 Temperature Pulse Rate 96 H 96 H 96 H Respiratory Rate Blood Pressure 94/62 L 94/61 L 94/58 L Pulse Oximetry 94 L 94 L 94 L 10/17/18 14:30 10/17/18 14:46 10/17/18 15:00 Temperature Pulse Rate 97 H 97 H 97 H Respiratory Rate Blood Pressure 97/61 L 97/57 L 96/56 L Pulse Oximetry 93 L 94 L 93 L 10/17/18 15:15 10/17/18 15:18 10/17/18 15:19 Temperature Pulse Rate 96 H 96 H Respiratory Rate 19 19 Blood Pressure 94/57 L Pulse Oximetry 94 L 96 10/17/18 15:30 10/17/18 15:35 10/17/18 15:45 Temperature Pulse Rate 96 H 95 H Respiratory Rate 19 Blood Pressure 93/57 L 94/57 L Pulse Oximetry 94 L 94 L 10/17/18 16:00 10/17/18 16:15 10/17/18 20:00 Temperature 97.6 F Pulse Rate 94 H 93 H 94 H Respiratory Rate Blood Pressure 96/54 L 92/56 L Pulse Oximetry 96 97 10/17/18 20:30 10/17/18 20:36 10/17/18 20:37 Temperature Pulse Rate 94 H 94 H Respiratory Rate 21 20 Blood Pressure 91/52 L Pulse Oximetry 99 99 10/17/18 20:45 10/17/18 21:00 10/17/18 21:15 Temperature Pulse Rate 94 H 96 H 96 H Respiratory Rate 32 H 22 Blood Pressure 91/54 L 101/53 L 102/57 L Pulse Oximetry 99 96 98 10/17/18 21:30 10/17/18 21:45 10/17/18 22:00 Temperature Pulse Rate 97 H 97 H 97 H Respiratory Rate 21 29 H 18 Blood Pressure 98/56 L 106/55 L 102/50 L Pulse Oximetry 99 98 99 10/17/18 22:15 10/17/18 22:30 10/17/18 22:45 Temperature Pulse Rate 97 H 98 H 100 H Respiratory Rate 22 20 22 Blood Pressure 99/55 L 104/55 L 107/56 L Pulse Oximetry 99 100 99 10/17/18 23:00 10/17/18 23:15 10/17/18 23:30 Temperature Pulse Rate 100 H 100 H 101 H Respiratory Rate 21 23 21 Blood Pressure 107/57 L 110/56 L 110/57 L Pulse Oximetry 99 98 99 10/17/18 23:45 10/18/18 00:00 10/18/18 00:15 Temperature 98.7 F Pulse Rate 101 H 101 H 102 H Respiratory Rate 23 34 H 19 Blood Pressure 108/58 L 114/58 L 109/59 L Pulse Oximetry 100 100 99 10/18/18 00:30 10/18/18 00:45 10/18/18 01:00 Temperature Pulse Rate 103 H 104 H 104 H Respiratory Rate 35 H 38 H 35 H Blood Pressure 109/57 L 116/56 L 112/55 L Pulse Oximetry 99 100 99 10/18/18 01:15 10/18/18 01:30 10/18/18 01:45 Temperature Pulse Rate 104 H 104 H 104 H Respiratory Rate 26 H 25 H 38 H Blood Pressure 108/57 L 106/54 L 110/57 L Pulse Oximetry 100 100 100 10/18/18 02:00 10/18/18 02:15 10/18/18 02:30 Temperature Pulse Rate 105 H 105 H 104 H Respiratory Rate 26 H 18 20 Blood Pressure 107/53 L 110/51 L 107/56 L Pulse Oximetry 100 100 100 10/18/18 02:45 10/18/18 02:48 10/18/18 03:00 Temperature Pulse Rate 105 H 105 H Respiratory Rate 19 19 18 Blood Pressure 106/56 L 105/52 L Pulse Oximetry 100 100 10/18/18 03:15 10/18/18 03:30 10/18/18 03:45 Temperature Pulse Rate 106 H 106 H 106 H Respiratory Rate 18 18 18 Blood Pressure 106/57 L 107/55 L 107/55 L Pulse Oximetry 100 100 100 10/18/18 04:00 10/18/18 04:01 10/18/18 04:15 Temperature 98.5 F Pulse Rate 107 H 106 H 109 H Respiratory Rate 19 19 18 Blood Pressure 105/56 L 103/56 L Pulse Oximetry 100 99 96 10/18/18 04:30 10/18/18 04:45 10/18/18 05:00 Temperature Pulse Rate 111 H 111 H 111 H Respiratory Rate 18 18 6 L Blood Pressure 106/55 L 106/50 L 117/58 L Pulse Oximetry 95 100 100 10/18/18 05:15 10/18/18 08:07 10/18/18 08:09 Temperature Pulse Rate 113 H 110 H Respiratory Rate 0 L 19 19 Blood Pressure 113/58 L Pulse Oximetry 95 99 Intake & Output 10/17/18 10/18/18 10/18/18 18:59 06:59 18:59 Intake Total 4279.5 / 4279.5 1190 / 1190 250 / 250 Output Total 50 / 50 1275 / 1275 Balance 4229.5 / 4229.5 -85 / -85 250 / 250 Weight 128.3 kg Intake: IV 4279.5 / 4279.5 1100 / 1100 250 / 250 Precedex Inj 1,000 MCG In NS 250 / 250 250 / 250 Inj 240 ML @ 0.2 MCG/KG/HR 4.92 mls/hr IV.CONT TITRATE PRN Rx# :[id number] Neosynephrine Inj 40 MG In D5W 1500 / 1500 500 / 500 Inj 496 ML @ 40 MCG/MIN 30 mls/ hr IV.CONT TITRATE PRN Rx#: [id number] Pitressin Inj 40 UNIT In D5W 100 / 100 Inj 98 ML @ 0.01 UNITS/MIN 1.5 mls/hr IV.CONT TITRATE PRN Rx#: [id number] Flexbumin 25% Inj 100 ML @ 12.5 200 / 200 mls/hr IV.SIG Q8H MINOR Rx#: [id number] Maxipime Inj 2,000 MG In NS Inj 200 / 200 100 / 100 100 ML @ 200 mls/hr IV.SIG Q8H MINOR Rx#:[id number] Diflucan 200 mg Premix Bag 200 200 / 200 ML @ 100 mls/hr IV.SIG Q24H MINOR Rx#:[id number] Bactrim Inj 528 MG In D5W Inj 1066 / 1066 500 ML @ 355.333 mls/hr IV.SIG Q6H MINOR Rx#:[id number] Vancomycin Inj 1,350 MG In NS 513.5 / 513.5 Inj 500 ML @ 250 mls/hr IV.SIG Q18H MINOR Rx#:[id number] fentaNYL 10 mcg/mL Premix Drip 250 / 250 250 / 250 250 / 250 2,500 mcg In 250 ml @ 50 MCG/HR 5 mls/hr IV.SIG TITRATE PRN Rx #:[id number] Tube Feeding 0 / 0 Tube Irrigant 90 / 90 Output: Urine 50 / 50 Urine Amount (Catheter) 1275 / 1275 Straight 1275 / 1275 Other: # Incontinent Voids 2 Date of Last Bowel Movement 10/14/18 10/14/18 Physical Exam: CONSTITUTIONAL/GENERAL: Intubated and sedated, nonresponsive and appears critically ill TUBES/LINES/DRAINS: PIV, RSC, condom cath, soft restraints, midline trach SKIN: Patient is mottled and from head to toe. His face is essentially purple. EYES: Pupils equal 3mm with no reaction. No scleral icterus. No injection or drainage. Fundi not examined. ENT: Unable to assess hearing due to clinical condition. Nose without bleeding or purulent drainage. Oral mucosa dry, with some peeling of the lips CARDIOVASCULAR: Sinus rhythm on telemetry. Peripheral pulses not palpable. +2 edema throughout. RESPIRATORY/CHEST: Mechanically ventilated. Patient will take occasional erratic breaths over the vent which appear extremely labored. Coarse rhonchi throughout with expiratory wheezes, more pronounced on the left. Diminished in the bases GASTROINTESTINAL: Abdomen distended and tympanic. Bowel sounds rare. Periumbilical hernia noted GENITOURINARY: Without palpable bladder distension. Condom catheter in place. MUSCULOSKELETAL: Extremities without clubbing, cyanosis, or edema. NEUROLOGICAL: Sedated. Does not open eyes appear, flaccid x4, no cough/gag. PSYCHIATRIC: Unable to assess due to clinical condition Diagnostic Tests Laboratory: Laboratory Results - last 72 hr 10/14/18 10/16/18 10/16/18 08:39 04:15 04:15 WBC 7.1 D RBC 2.94 L Hgb 9.6 L Hct 29.2 L MCV 99.3 MCH 32.8 MCHC 33.0 RDW 16.1 Plt Count 69 L MPV 10.7 Sodium 139 Potassium 4.0 Chloride 110 H Carbon Dioxide 19.7 L Anion Gap 9 BUN 21 H Creatinine 1.05 Estimated GFR 75 L POC Glucose Random Glucose 100 Calcium 8.1 L Calcium Adj for Albumin Phosphorus 5.0 H D Magnesium 1.8 Albumin Vancomycin Trough MTS Gel Crossmatch See Detail 10/17/18 10/17/18 10/17/18 06:17 06:17 21:58 WBC 9.7 RBC 2.21 L Hgb 7.1 L D Hct 22.3 L MCV 101.1 H MCH 32.3 MCHC 31.9 L RDW 17.0 Plt Count 52 L MPV 12.4 H Sodium 136 Potassium 4.9 D Chloride 108 H Carbon Dioxide 15.0 L Anion Gap 13 BUN 28 H Creatinine 1.76 H Estimated GFR 41 L POC Glucose Random Glucose 115 H Calcium 7.6 L Calcium Adj for Albumin Phosphorus 7.2 H D Magnesium 2.2 Albumin Vancomycin Trough 32.4 H MTS Gel Crossmatch 10/18/18 10/18/18 10/18/18 04:05 04:05 08:06 WBC 10.1 RBC 2.22 L Hgb 7.1 L Hct 22.0 L MCV 99.0 MCH 32.1 MCHC 32.4 RDW 17.7 H Plt Count 70 L D MPV 11.9 H Sodium 132 L Potassium 5.8 H D Chloride 103 Carbon Dioxide 17.7 L Anion Gap 11 BUN 38 H Creatinine 2.67 H Estimated GFR 26 L POC Glucose 65 L Random Glucose 63 L Calcium 7.2 L* Calcium Adj for Albumin 8.6 Phosphorus 8.6 H D Magnesium 2.0 Albumin 2.2 L Vancomycin Trough MTS Gel Crossmatch 10/18/18 10:25 WBC RBC Hgb Hct MCV MCH MCHC RDW Plt Count MPV Sodium Potassium Chloride Carbon Dioxide Anion Gap BUN Creatinine Estimated GFR POC Glucose 77 Random Glucose Calcium Calcium Adj for Albumin Phosphorus Magnesium Albumin Vancomycin Trough MTS Gel Crossmatch Result Diagrams: 10/18/18 04:05 10/18/18 04:05 Microbiology: Microbiology 10/12/18 22:55 Aerobic Blood Culture - Final Blood - Peripheral No growth in 5 days Anaerobic Blood Culture - Final No growth in 5 days 10/12/18 22:50 Aerobic Blood Culture - Final Blood - Peripheral No growth in 5 days Anaerobic Blood Culture - Final No growth in 5 days 10/13/18 16:00 Gram Stain - Final Sputum - Endotracheal Sputum Culture - Final S. aureus MRSA Escherichia coli 10/13/18 04:28 Gram Stain - Final Sputum - Endotracheal Sputum Culture - Final S. aureus MRSA Escherichia coli 10/12/18 21:50 Urine Culture - Final Catheterized Urine No growth in 48 hours Procedures: 10/07/18 * Endotracheal intubation 10/08/18 * Lumbar puncture 10/14/18 * Bedside tracheostomy 10/16/18 * [facility] Assessment and Plan - Disease Oriented Problem List (1) Acute encephalopathy (2) Seizure (3) HIV (human immunodeficiency virus infection) - Symptom Scale (1) Dyspnea 0-10 Scale: Unable to quantify Comment: plans for compassionate withdrawal today (2) Pain 0-10 Scale: Unable to quantify Comment: Currently managed with IV fentanyl (3) Anxiety 0-10 Scale: Unable to quantify Pertinent Non-Medical Issues: Psychosocial: The patient has never been and has no children. His sister is only relative. He is currently unable to work and is living with his sister for the past 5 months Spiritual: Unknown Legal: Patient is currently unable to participate in his own medical decision making. The absence of written advanced directives, per [place] statutes his sister, Beata Morgan [phone] would be healthcare proxy Ethical issues impacting care: No known ethical issues impacting care at this time. Important Contacts: Beata Morgan, sister/HCP [phone] Prognosis: The patient has had an abrupt decline in cognitive ability. Functionally he was able to participate in his own ADLs and independent of ambulation prior to this admission. His sister states that he usually just stayed on the house sitting or laying. He has dealt with issues with drug and alcohol abuse for many years. He has multiple admissions concerning for sequelae related to his HIV/AIDS. He also has a concerning history for noncompliance with medical therapy. Given his complex medical history and associated comorbidities, he remains at high risk for further functional and cognitive decline. He remains at increased risk for continued infection, respiratory decline, and . This patient is not expected to survive this hospitalization. Code Status: No Code DNR Plan: * LEGAL DECISION MAKER -patient is currently unable to participate in his own healthcare decision making. In the absence of documented advanced directives, per [place] statutes decision making would fall to his Sister Beata Morgan [phone] by proxy * GOALS - Discussion was had at bedside with patient's sisters, nephews, Dr. Summers and Palliative care. It was explained that the patient was experiencing multiorgan failure and was not suspected to survive this hospitalization. Upon reviewing clinical data and seeing their brother, the family decided it was in his best interest for compassionate withdrawal of life support. * CODE STATUS - DNR * SYMPTOMS Pain - Withdrawal medications were ordered by Dr. Summers. to include: Morphine 10mg IVP 30 min prior to extubation, Morphine 10mg IVP at the time of extubation. Morphine 4mg IVP Q4h, Morphine 10mg Q15min for severe pain/dyspnea Anxiety - patient to be compassionately withdrawn today. Medications order by Dr. Summers including Ativan pre/post, scheduled Q4 and rescue meds as needed Dyspnea - Patient to be compassionately withdrawn today Palliative care will continue to follow during hospital course as condition evolves, to assist patient/decision maker with understanding of medical conditions, weighing benefits/burdens of treatment options, for clarification of goals of treatment. Additionally will assist with any symptoms of palliative concern. Case discussed with Dr. Summers and RN (Ct) at bedside. Attestation Attestation: To help prompt me to consider important information that might be impacting today's encounter and assessment, information from prior notes written by myself or my colleagues may have been "brought forward" into today's note. My signature on this note, however, is an attestation that I personally performed the exam, history, and/or decision-making noted today, and, unless otherwise indicated, the interactions with patient, family, and staff as well as the review of records all occurred today. I also attest that the listed assessment and stated plan reflect my best clinical judgment today based on the combination of historical information, prior notes, and today's exam/ interactions. When time spent is documented, it refers only to time spent today by the signer, or if indicated, combined time spent today by collaborating physician/nurse practitioner.
[2018-10-18] MEDS ORDERED: Morphine Inj 4 MG/ML Vial IV.PUSH SCH (12:00)
[2018-10-18 14:11] VITALS: BP 79/45; PULSE 100; RESP 20; TEMP 98.2; O2SAT 98
--- NOTE | 2018-10-18 16:16 | P.DN ---
- Provider Primary care physician: UNKNOWN Admitting clinician: Wendy Perez Attending physician on admission: Wendy Perez Consults: 10/07/18 10:37 Consult to Infectious Diseases Routine Consulting Provider: Pop Toribio Lining Maker:: Pop Toribio Patient known to:: Pop Toribio Reason for Consultation: sepsis, HIV, concern for meningitis Notified:: Service Spoke with:: LYUDMILA Date Notified:: 10/07/18 Time Notified:: 10:50 Ordering Provider: ALLIE 10/07/18 10:42 Consult to Palliative Care Routine Consulting Provider: Kylah Osborn Reason for Consultation: HIV patient with likely meningitis, refused LP on last admission, non-compliant with medications. Need to clarify goals of care. Notified:: Service Spoke with:: LYUDMILA Date Notified:: 10/07/18 Time Notified:: 10:52 Comments:: Palliative- please page Dr. Perez to discuss patient, thank you Ordering Provider: ALLIE 10/07/18 11:06 Consult to Radiology Routine 10/07/18 11:25 Consult to Neurology Routine Consulting Provider: Evita Short Patient known to:: Sergio Quiros Reason for Consultation: suspected meningitis, now with seizure/ encephalopathy Notified:: Office Spoke with:: CARA Date Notified:: 10/07/18 Time Notified:: 11:35 Ordering Provider: ALLIE 10/08/18 09:28 HUB Only Consult Order Routine Consulting Provider: [employer] [facility],Insurance 10/16/18 21:46 Consult to Gastroenterology Routine Consulting Provider: Delfin Boyd Reason for Consultation: PEG placement Notified:: Service Spoke with:: Tolu Date Notified:: 10/16/18 Time Notified:: 22:40 Ordering Provider: REBEKA Pronouncing clinician: Justin Summers - Admitting Diagnosis (1) MIGUEL ANGEL (acute kidney injury) (2) Abnormal MRI of head (3) Acute encephalopathy (4) Anxiety (5) COPD (chronic obstructive pulmonary disease) (6) Cellulitis (7) Cellulitis of face (8) Cervical spondylosis (9) Cocaine abuse (10) Confusion (11) Depression (12) Dyspnea (13) Elevated troponin (14) Fever (15) Fever (16) Fever (17) Fever of unknown origin (FUO) (18) HIV (human immunodeficiency virus infection) (19) HIV (human immunodeficiency virus infection) (20) Headache (21) Hypokalemia (22) Nausea (23) Nutrition, metabolism, and development symptoms (24) PEG (percutaneous endoscopic gastrostomy) adjustment/replacement/removal (25) Pain (26) Pneumonia (27) Seizure (28) Sepsis (29) Sinusitis (30) Skin rash (31) Thrombocytopenia (32) Toxic metabolic encephalopathy (33) Unspecified mood [affective] disorder - Diagnosis at Time of (1) MIGUEL ANGEL (acute kidney injury) Diagnosis: Principal (2) Abnormal MRI of head Diagnosis: Principal (3) Acute encephalopathy Diagnosis: Principal (4) Anxiety Diagnosis: Principal (5) COPD (chronic obstructive pulmonary disease) Diagnosis: Secondary (6) Cellulitis Diagnosis: Principal (7) Cellulitis of face Diagnosis: Principal (8) Cervical spondylosis Diagnosis: Secondary (9) Cocaine abuse Diagnosis: Principal (10) Confusion Diagnosis: Principal (11) Depression Diagnosis: Secondary (12) Dyspnea Diagnosis: Principal (13) Elevated troponin Diagnosis: Principal (14) Fever Diagnosis: Principal (15) Fever Diagnosis: Principal (16) Fever Diagnosis: Principal (17) Fever of unknown origin (FUO) Diagnosis: Principal (18) HIV (human immunodeficiency virus infection) Diagnosis: Principal (19) HIV (human immunodeficiency virus infection) Diagnosis: Principal (20) Headache Diagnosis: Principal (21) Hypokalemia Diagnosis: Principal (22) Nausea Diagnosis: Principal (23) Nutrition, metabolism, and development symptoms Diagnosis: Principal (24) PEG (percutaneous endoscopic gastrostomy) adjustment/replacement/removal Diagnosis: Principal (25) Pain Diagnosis: Principal (26) Pneumonia Diagnosis: Principal (27) Seizure Diagnosis: Principal (28) Sepsis Diagnosis: Principal (29) Sinusitis Diagnosis: Principal (30) Skin rash Diagnosis: Principal (31) Thrombocytopenia Diagnosis: Principal (32) Toxic metabolic encephalopathy Diagnosis: Principal (33) Unspecified mood [affective] disorder Diagnosis: Secondary - Date and Time Date of admission: 10/07/18 10:30 Date of : 10/18/18 Time of : 13:31 - Summary Brief History: 48yM with history of HIV and CD4+ count <20 presenting with seizure and fever. The patient was admitted from 09/26-10/05/18 for fever and headache, had an initial attempt at LP performed in the ED but was unsuccessful and subsequently declined any further attempts. He had blood cultures which were negative at 5 days and positive toxoplasma IgG, treated empirically with IV fluconazole and discharged home with PO fluconazole and prophylactic azithromycin and bactrim. The patient is chronic non-compliant with his HIV medications and was reportedly not taking his discharge meds. Today, he was at home and had a 2 minute seizure witnessed by his sister Beata. He was brought to the ED via EMS and had a temp of 101F and heart rate of 150. He was given a dose of vanco, ceftazidime, and acyclovir along with 3L NS bolus. He had a head CT which was unchanged from his previous visit. On my evaluation, the patient is encephalopathic and oriented to name only. He is unable to provide any further meaningful details to HPI. I spoke with the patient's sister Beata, who says that the patient is frequent non-compliant with his medications, reportedly took "a whole bottle of percocet" two days ago (just after discharge), and "hasn't been in his right mind since then. He can't finish a sentence and has been urinating himself". Result Diagrams: 10/18/18 04:05 10/18/18 04:05 Significant Findings: Abnormal Lab Results 10/17/18 10/18/18 10/18/18 21:58 04:05 04:05 WBC 10.1 RBC 2.22 L Hgb 7.1 L Hct 22.0 L MCV 99.0 MCH 32.1 MCHC 32.4 RDW 17.7 H Plt Count 70 L D MPV 11.9 H Sodium 132 L Potassium 5.8 H D Chloride 103 Carbon Dioxide 17.7 L Anion Gap 11 BUN 38 H Creatinine 2.67 H Estimated GFR 26 L POC Glucose Random Glucose 63 L Calcium 7.2 L* Calcium Adj for Albumin 8.6 Phosphorus 8.6 H D Magnesium 2.0 Albumin 2.2 L Vancomycin Trough 32.4 H 10/18/18 10/18/18 08:06 10:25 WBC RBC Hgb Hct MCV MCH MCHC RDW Plt Count MPV Sodium Potassium Chloride Carbon Dioxide Anion Gap BUN Creatinine Estimated GFR POC Glucose 65 L 77 Random Glucose Calcium Calcium Adj for Albumin Phosphorus Magnesium Albumin Vancomycin Trough Hospital Course: 48yM with history of HIV and CD4+ count <20 presenting with seizure and fever. The patient was admitted from 09/26-10/05/18 for fever and headache, had an initial attempt at LP performed in the ED but was unsuccessful and subsequently declined any further attempts. He had blood cultures which were negative at 5 days and positive toxoplasma IgG, treated empirically with IV fluconazole and discharged home with PO fluconazole and prophylactic azithromycin and bactrim. The patient is chronic non-compliant with his HIV medications and was reportedly not taking his discharge meds. Today, he was at home and had a 2 minute seizure witnessed by his sister Beata. He was brought to the ED via EMS and had a temp of 101F and heart rate of 150. He was given a dose of vanco, ceftazidime, and acyclovir along with 3L NS bolus. He had a head CT which was unchanged from his previous visit. On my evaluation, the patient is encephalopathic and oriented to name only. He is unable to provide any further meaningful details to HPI. I spoke with the patient's sister Beata, who says that the patient is frequent non-compliant with his medications, reportedly took "a whole bottle of percocet" two days ago (just after discharge), and "hasn't been in his right mind since then. He can't finish a sentence and has been urinating himself". 10/08: Patient intubated overnight for continued respiratory distress/ hypoxia. Currently sedated and intubated. 10/09: Patient growing MRSA in sputum culture, febrile to 103F, CSF shows no organisms on gram stain and cultures pending. 10/10: Remains intubated heavily sedated. Remains on suspected toxoplasmosis treatment with vitamin Timentin sulfadiazine and leucovorin. CSF cultures remains negative. 10/11: Remains intubated and sedated. Failed CPAP trial yesterday due to severe tachypnea. Treatment for toxoplasmosis currently held by ID as it is known least high. CSF cultures remains negative. Start diuresis with IV Lasix , start Precedex to facilitate weaning 10/12: Attempt is being made to transition from propofol to Precedex to facilitate vent weaning but patient not tolerating becomes very tachypneic and anxious. Restarted back on propofol. We will start scheduled Ativan to facilitate weaning propofol. 10/13: Remains very critical spiking high fevers at 102. Significant difficulties and ventilator and sedation weaning due to severe agitation and severe ventilator asynchrony once sedation is lowered. Family wants continued aggressive care. Early tracheostomy may help reduce sedation and ventilator wean. Will discuss with sister who is the POA. Due to continued fever I will check CT chest abdomen and pelvis to rule out abscess loculated effusions etc. pancultured yesterday pending 10/14: Remains critically ill and septic T-max again more than 102. CT of the chest shows increasing bilateral consolidation. PJP sent pending at this time. Will discuss with ID about empiric treatment until the cultures are back. CT abdomen also shows questionable infected cyst on the right kidney. Will check renal ultrasound. Plan for tracheostomy and bronchoscopy today will collect additional specimen for PJP and other opportunistic infection 10/15: continues to be septic and spiking fevers. trached yesterday. agitation persists. minimal improvements overall. starting to get volume overloaded as well. 10/16: severe agitation persists. no improvements. also high fio2 requirements. very volume overloaded, but not diuresing appropriately: will add concentrated albumin and increase lasix again. no improvements between yesterday and today. 10/17: clinically decompensated overnight. now appears quite septic in refractory shock. discussions overnight with family/HCS and now "no escalation of care/DNR". unstable today with hypotension, hypoxia. poor prognosis. 10/18: no changes or improvements. long discussion with family at bedside today , and they wish to pursue palliative withdraw of care, which is appropriate.
== END 2018-10-18 13:31 | disposition expired ==
LOC: NEPC 07:39 → NEDA 10:30 → HIMC 13:00
PROVIDERS: ADMIT Surgery Surgical Critical Care; ATTEND Surgery Surgical Critical Care